=== PATIENT | female | born 1945 | race Hispanic/Latino ===

== ENCOUNTER 2018-06-15 12:06 | Emergency (ER) | payer OTHER ==
--- NOTE | 2018-06-15 12:50 | RAD REPORT ---
EXAM DESCRIPTION: CT - CTHCSPWOC - 06/15/2018 12:37 pm CLINICAL HISTORY: Trauma, head and neck injury. fall, head in jury;Pain COMPARISON: No comparisons TECHNIQUE: Axial 5 mm thick images of the head were obtained. Axial 2 mm thick images of the cervical spine were obtained with sagittal and coronal reconstruction images generated and reviewed. All CT scans are performed using dose optimization technique as appropriate and may include automated exposure control or mA/KV adjustment according to patient size. FINDINGS: CT HEAD WITHOUT CONTRAST: No acute hemorrhage, hydrocephalus or extra-axial collection is identified.No areas of brain edema or midline shift. The paranasal sinuses and mastoids are clear.The calvarium is intact. CT CERVICAL SPINE WITHOUT CONTRAST: No fracture or subluxation.No prevertebral soft tissues swelling is identified. IMPRESSION: No acute intracranial or cervical spine findings.
--- NOTE | 2018-06-15 13:22 | RAD REPORT ---
EXAM DESCRIPTION: RAD - Knee Right 3 View - 06/15/2018 1:15 pm CLINICAL HISTORY: PAIN Fall COMPARISON: No comparisons FINDINGS: No fracture or dislocation is seen. No joint effusion identified. Vascular calcifications seen.
--- NOTE | 2018-06-15 13:24 | RAD REPORT ---
EXAM DESCRIPTION: RAD - Humerus Left - 06/15/2018 1:15 pm CLINICAL HISTORY: PAIN Fall COMPARISON: No comparisons FINDINGS: Mild arthritic changes are present involving the left shoulder. No fracture or dislocation seen.
--- NOTE | 2018-06-15 13:56 | ER ---
Nurse's Notes [facility] Name: Neris Nevarez Age: 72 yrs Sex: Female : 1945 Arrival Date: 06/15/2018 Time: 12:08 Bed 3 Private MD: Out, of [facility] Diagnosis: Fall (on) (from) unspecified stairs and steps;Superficial injury of head;Pain in right knee;Pain in left arm;Contusion of left upper arm Presentation: 06/15 11:22 Mechanism of Injury: Fall down steps approximately 4 feet. Trauma event details: Injury hb occurred in the [facility], Injury occurred: at home. Injury occurred: June 15, 2018. 12:10 Presenting complaint: Patient states: pt fell from approx 4 ft, hitting her head and sg left arm, pt now complains of headache and left shoulder and left upper arm pain, reports a burning sensation and sharp pains, reports no LOC, denies N/V/D/Fever. Transition of care: patient was not received from another setting of care. Onset of symptoms was June 15, 2018. Risk Assessment: Do you want to hurt yourself or someone else? Patient reports no desire to harm self or others. Initial Sepsis Screen: Does the patient meet any 2 criteria? No. Patient's initial sepsis screen is negative. Does the patient have a suspected source of infection? No. Patient's initial sepsis screen is negative. Care prior to arrival: None. 12:10 Method Of Arrival: Ambulatory 12:10 Acuity: YOLIE 3 sg Trauma Activation: Alert Physician: ED Physician; Name: Dr. Marin; Notified At: 11:22; Arrived At: 11:25 Physician: General Surgeon; Name: ; Notified At: 11:22; Arrived At: Physician: Radiology; Name: ; Notified At: 11:22; Arrived At: Physician: Respiratory; Name: ; Notified At: 11:22; Arrived At: Physician: Lab; Name: ; Notified At: 11:22; Arrived At: Historical: - Allergies: 12:08 No Known Allergies; sg - Home Meds: 12:17 clopidogrel 75 mg oral tab 1 tab once daily [Active]; levothyroxine oral [Active]; sg Aspirin Oral [Active]; atorvastatin oral oral [Active]; glimepiride Oral [Active]; valsartan oral oral [Active]; carvedilol oral oral [Active]; - PMHx: 12:17 Hypothyroidism; Diabetes - NIDDM; sg - PSHx: 12:17 Mastectomy, Right; Cholecystectomy; ; sg - Immunization history:: Adult Immunizations up to date. - Social history:: Smoking status: Patient/guardian denies using tobacco. - Immunization history: Last tetanus immunization: - up to date. - Ebola Screening: : Patient negative for fever greater than or equal to 101.5 degrees Fahrenheit, and additional compatible Ebola Virus Disease symptoms Patient denies exposure to infectious person Patient denies travel to an Ebola-affected area in the 21 days before illness onset No symptoms or risks identified at this time. Screenin:35 Abuse screen: Denies threats or abuse. Denies injuries from another. Tuberculosis hb screening: No symptoms or risk factors identified. 12:37 Nutritional screening: No deficits noted. Fall Risk None identified. hb Primary Survey: 12:25 A: Airway: patent, No supplemental oxygen in use on arrival. Breathing/Chest: hb Respiratory pattern: regular, Respiratory effort: spontaneous, unlabored, Chest inspection: symmetrical rise and fall of the chest. Circulation: Pulses: palpable . Skin color: pink, Skin temperature: warm, dry. Disability Alert. 13:15 Reassessment Airway Airway Patent Breathing/Chest Respiratory pattern Regular hb Respiratory effort Spontaneous Unlabored Chest inspection Symmetrical Circulation Color [place] Powder Temperature Warm Dry Disability Alert. Secondary Survey: 12:25 HEENT: No deficits noted. Gastrointestinal: No deficits noted. : No deficits noted. hb Musculoskeletal: Range of motion: limited in left shoulder bruising noted to LUE. Assessment: 12:35 General: Appears in no apparent distress. uncomfortable, Behavior is calm, cooperative. hb Pain: Pain currently is 10 out of 10 on a pain scale. Neuro: Level of Consciousness is awake, alert, obeys commands, Oriented to person, place, time, situation. EENT: No signs and/or symptoms were reported regarding the EENT system. Cardiovascular: Heart tones S1 S2 present Capillary refill < 3 seconds Patient's skin is warm and dry. Respiratory: Airway is patent Trachea midline Respiratory effort is even, unlabored, Respiratory pattern is regular, symmetrical, Breath sounds are clear bilaterally. GI: No deficits noted. No signs and/or symptoms were reported involving the gastrointestinal system. : No deficits noted. No signs and/or symptoms were reported regarding the genitourinary system. Derm: Skin is intact, is healthy with good turgor, Bruising that is dark purple, to LUE. Musculoskeletal: Reports pain in left shoulder. 12:40 General:. hb Vital Signs: 12:17 Pulse 66; Resp 17; Pulse Ox 96% on R/A; sg 12:25 BP 126 / 80; Pulse 65; Resp 16; Pulse Ox 100% on R/A; Pain 10/10; hb 13:15 BP 128 / 78; Pulse 64; Resp 15; Pulse Ox 100% ; hb Bunny Coma Score: 12:25 Eye Response: spontaneous(4). Verbal Response: oriented(5). Motor Response: obeys hb commands(6). Total: 15. 12:30 Eye Response: spontaneous(4). Verbal Response: oriented(5). Motor Response: obeys kdr commands(6). Total: 15. Trauma Score (Adult): 12:25 Eye Response: spontaneous(1); Verbal Response: oriented(1); Motor Response: obeys hb commands(2); Systolic BP: > 89 mm Hg(4); Respiratory Rate: 10 to 29 per min(4); Bunny Score: 15; Trauma Score: 12 13:15 Eye Response: spontaneous(1); Verbal Response: oriented(1); Motor Response: obeys hb commands(2); Systolic BP: > 89 mm Hg(4); Respiratory Rate: 10 to 29 per min(4); Bunny Score: 15; Trauma Score: 12 ED Course: 12:08 Patient arrived in ED. sb2 12:09 Out, [facility] is Private Physician. sb2 12:13 Triage completed. sg 12:13 Arm band placed on. sg 12:18 Selwyn Jang PA is PHCP. jr8 12:18 Loi Marin MD is Attending Physician. jr8 12:25 Patient has correct armband on for positive identification. Placed in gown. Bed in low hb position. Call light in reach. Side rails up X 1. 12:27 Patient maintains SpO2 saturation greater than 95% on room air. Thermoregulation: warm hb blanket given to patient. 12:29 Kandace Good, RN is Primary Nurse. hb 12:38 CT Head C Spine In Process Unspecified. EDMS 12:45 Patient moved to radiology via wheelchair. jb2 13:05 Patient moved back from radiology. jb2 13:05 X-ray completed. Patient tolerated procedure well. jb2 13:16 Humerus Left XRAY In Process Unspecified. EDMS 13:16 Knee Right 3 View XRAY In Process Unspecified. EDMS 14:08 No provider procedures requiring assistance completed. Patient did not have IV access hb during this emergency room visit. Administered Medications: 14:05 Drug: Tylenol #3 (300 mg-30 mg) 1 tablet Route: PO; hb 14:07 Follow up: Response: Medication administered at discharge. hb Intake: 13:15 PO: 0ml; Total: 0ml. hb Output: 13:15 Urine: 0ml; Total: 0ml. hb Outcome: 13:55 Discharge ordered by MD. kdr 14:08 Discharged to home ambulatory, with family. hb 14:08 Condition: stable 14:08 Discharge instructions given to patient, family, Instructed on discharge instructions, follow up and referral plans. medication usage, Demonstrated understanding of instructions, follow-up care, medications, Prescriptions given X 1. 14:08 Patient's length of stay in the Emergency Department was greater than 2 hours. hb 14:09 Patient left the ED. hb Signatures: Dispatcher [employer] EDMS Ernie Sal RN RN Loi Marin MD MD kdr Buechter, Jesse jb2 Selwyn Jang PA PA jr8 Kandace Good, Carlie Kenney RN 2
--- NOTE | 2018-06-15 13:56 | EDPHYS ---
Physician Documentation [facility] Name: Neris Nevarez Age: 72 yrs Sex: Female : 1945 Arrival Date: 06/15/2018 Time: 12:08 Bed 3 Private MD: Out, [facility] ED Physician Loi Marin HPI: 06/15 12:30 This 72 yrs old Female presents to ER via Ambulatory with complaints of Fall kdr 4ft, Head Injury-Adult, Arm Injury. 12:30 The patient or guardian reports injury, pain, tenderness. The complaints affect the kdr left frontal area and right frontal area. Context of injury: The problem was sustained at home, resulted from a fall, Waled up stairs to landing where she apparently fell through the railing landing head first on the ground. Onset: The symptoms/episode began/occurred just prior to arrival, .5 hour(s) ago. Associated signs and symptoms: Loss of consciousness: This patient did not experience any loss of consciousness. Pertinent positives: Left humerus and right knee. Severity of symptoms: At their worst the symptoms were mild, moderate, just prior to arrival, in the emergency department the symptoms are unchanged. The patient has not experienced similar symptoms in the past. The patient has not recently seen a physician. Historical: - Allergies: 12:08 No Known Allergies; sg - Home Meds: 12:17 clopidogrel 75 mg oral tab 1 tab once daily [Active]; levothyroxine oral [Active]; sg Aspirin Oral [Active]; atorvastatin oral oral [Active]; glimepiride Oral [Active]; valsartan oral oral [Active]; carvedilol oral oral [Active]; - PMHx: 12:17 Hypothyroidism; Diabetes - NIDDM; sg - PSHx: 12:17 Mastectomy, Right; Cholecystectomy; ; sg - Immunization history:: Adult Immunizations up to date. - Social history:: Smoking status: Patient/guardian denies using tobacco. - Immunization history: Last tetanus immunization: - up to date. - Ebola Screening: : Patient negative for fever greater than or equal to 101.5 degrees Fahrenheit, and additional compatible Ebola Virus Disease symptoms Patient denies exposure to infectious person Patient denies travel to an Ebola-affected area in the 21 days before illness onset No symptoms or risks identified at this time. ROS: 12:30 Constitutional: Negative for fever, chills, and weight loss, Eyes: Negative for injury, kdr pain, redness, and discharge, Neck: Negative for injury, pain, and swelling, Cardiovascular: Negative for chest pain, palpitations, and edema, Respiratory: Negative for shortness of breath, cough, wheezing, and pleuritic chest pain, Abdomen/GI: Negative for abdominal pain, nausea, vomiting, diarrhea, and constipation, Back: Negative for injury and pain, : Negative for injury, bleeding, discharge, and swelling, MS/Extremity: Negative for injury and deformity except for right knee and left humerus Skin: Negative for injury, rash, and discoloration, Neuro: Negative for headache, weakness, numbness, tingling, and seizure activity. Psych: Negative for depression, anxiety, suicide ideation, homicidal ideation, and hallucinations, Allergy/Immunology: Negative for hives, rash, and allergies, Endocrine: Negative for neck swelling, polydipsia, polyuria, polyphagia, and marked weight changes, Hematologic/Lymphatic: Negative for swollen nodes, abnormal bleeding, and unusual bruising. Exam: 12:30 Constitutional: This is a well developed, well nourished patient who is awake, alert, kdr and in no acute distress. Eyes: Pupils equal round and reactive to light, extra-ocular motions intact. Lids and lashes normal. Conjunctiva and sclera are non-icteric and not injected. Cornea within normal limits. Periorbital areas with no swelling, redness, or edema. 12:30 MS/ Extremity: Pulses equal, no cyanosis. Neurovascular intact. Full, normal range of motion except for slight pain in the right patella and ecchymosis and swelling to the anterior left humerous - mid shaft 12:30 Head/face: Noted is contusion, of the left frontal area and right frontal area. Vital Signs: 12:17 Pulse 66; Resp 17; Pulse Ox 96% on R/A; sg 12:25 BP 126 / 80; Pulse 65; Resp 16; Pulse Ox 100% on R/A; Pain 10/10; hb 13:15 BP 128 / 78; Pulse 64; Resp 15; Pulse Ox 100% ; hb Bunny Coma Score: 12:25 Eye Response: spontaneous(4). Verbal Response: oriented(5). Motor Response: obeys hb commands(6). Total: 15. 12:30 Eye Response: spontaneous(4). Verbal Response: oriented(5). Motor Response: obeys kdr commands(6). Total: 15. Trauma Score (Adult): 12:25 Eye Response: spontaneous(1); Verbal Response: oriented(1); Motor Response: obeys hb commands(2); Systolic BP: > 89 mm Hg(4); Respiratory Rate: 10 to 29 per min(4); Bunny Score: 15; Trauma Score: 12 13:15 Eye Response: spontaneous(1); Verbal Response: oriented(1); Motor Response: obeys hb commands(2); Systolic BP: > 89 mm Hg(4); Respiratory Rate: 10 to 29 per min(4); Bunny Score: 15; Trauma Score: 12 MDM: 12:18 Patient medically screened. [facility] 12:30 Data reviewed: vital signs, nurses notes, lab test result(s), radiologic studies. kdr Counseling: I had a detailed discussion with the patient and/or guardian regarding: the historical points, exam findings, and any diagnostic results supporting the discharge/admit diagnosis, lab results, radiology results. 06/15 12:30 Order name: CT Head C Spine; Complete Time: 13:53 kdr 06/15 12:30 Order name: Humerus Left XRAY; Complete Time: 13:53 kdr 06/15 12:30 Order name: Knee Right 3 View XRAY; Complete Time: 13:53 kdr 06/15 13:54 Order name: Ice pack: To left humerous; Complete Time: 14:01 kdr Administered Medications: 14:05 Drug: Tylenol #3 (300 mg-30 mg) 1 tablet Route: PO; hb 14:07 Follow up: Response: Medication administered at discharge. hb Disposition: 06/15/18 13:55 Discharged to Home. Impression: Fall (on) (from) unspecified stairs and steps, Superficial injury of head, Pain in right knee, Pain in left arm, Contusion of left upper arm. - Condition is Stable. - Discharge Instructions: Joint Pain, Knee Pain, Head Injury, Adult, [id number], Knee Pain, [id number]. - Prescriptions for Tramadol 50 mg Oral Tablet - take 1 tablet by ORAL route every 8 hours as needed; 12 tablet. - Medication Reconciliation Form, Thank You Letter form. - Follow up: Private Physician; When: 2 - 3 days; Reason: If symptoms return, Further diagnostic work-up, Recheck today's complaints, Continuance of care, Re-evaluation by your physician. - Problem is new. - Symptoms have improved. Signatures: Dispatcher [employer] EDMS Ernie Sal, JOHN RN Loi Marin MD MD [facility] Selwyn Jang PA PA jr8 Kandace Good RN RN Corrections: (The following items were deleted from the chart) 14:09 13:55 06/15/2018 13:55 Discharged to Home. Impression: Fall (on) (from) unspecified hb stairs and steps; Superficial injury of head; Pain in right knee; Pain in left arm; Contusion of left upper arm. Condition is Stable. Forms are Medication Reconciliation Form, Thank You Letter, Antibiotic Education, Prescription Opioid Use. Follow up: Private Physician; When: 2 - 3 days; Reason: If symptoms return, Further diagnostic work-up, Recheck today's complaints, Continuance of care, Re-evaluation by your physician. Problem is new. Symptoms have improved. kdr
[2018-06-15] MEDS ORDERED: CODEINE 30MG/APAP 300MG TAB ONE (14:10)
== END 2018-06-15 14:09 | disposition home or self-care (01) ==
LOC: ER 12:06
DX: S40.022A Contusion of left upper arm, initial encounter (principal); M25.561 Pain in right knee; M79.622 Pain in left upper arm; W17.89XA Other fall from one level to another, initial encounter; Y93.89 Activity, other specified; Y92.9 Unspecified place or not applicable; Z90.11 Acquired absence of right breast and nipple; E03.9 Hypothyroidism, unspecified; E11.9 Type 2 diabetes mellitus without complications
CPT/HCPCS: 70450; 72125; 99284

== ENCOUNTER 2019-02-24 18:30 | Observation (INO) | payer OTHER ==
[2019-02-24 19:33] LABS: Absolute Lymphocytes (CBC) 0.3 K/uL (0.7-4.9); Absolute Monocytes 0.2 K/uL (0.1-1.3); Absolute Neutrophil 10.8 K/uL (1.8-8.0); Basophils % 0.3 % (0-1.3); Eosinophils % 0.6 % (0-4.4); Hematocrit 43.9 % (36.0-45.0); Lymphocytes % 2.8 % (15.3-44.8); MPV 9.8 fL (7.6-11.3); RBC Red Blood Cell Count 4.71 M/uL (3.86-4.86)
[2019-02-24 19:39] LABS: Protime INR 1.03
[2019-02-24] MEDS ORDERED: FAMOTIDINE 20 MG/2 ML VIAL IV ONE (19:52)
[2019-02-24] MEDS ORDERED: ONDANSETRON 4 MG/2 ML VIAL ONE (19:52)
[2019-02-24 19:56] LABS: ALT/SGPT 32 U/L (12-78); AST/SGOT 40 U/L (15-37); Albumin 3.9 g/dL (3.4-5.0); Alkaline Phosphatase 80 U/L (45-117); BUN Blood Urea Nitrogen 23 mg/dL (7-18); Bicarbonate 22 mmol/L (21-32); Bilirubin Direct 0.2 mg/dL (0-0.2); Bilirubin Total 1.4 mg/dL (0.2-1.0); Glucose Level 325 mg/dL (74-106); Lipase 404 U/L (73-393); Magnesium 1.9 mg/dL (1.8-2.4); NT PRO-BNP 167 pg/mL (<125); Potassium 4.9 mmol/L (3.5-5.1); Protein, Total 8.1 g/dL (6.4-8.2); Sodium Level 136 mmol/L (136-145); Troponin (Emerg Dept Use Only) < 0.02 ng/mL (0.0-0.045)
[2019-02-24 19:58] LABS: Platelet Estimate ADEQ; Urine White Blood Cell Casts OK
[2019-02-24 19:59] LABS: Blood Morphology Comment NOT SEEN (NOT SEEN)
--- NOTE | 2019-02-24 20:07 | RAD REPORT ---
EXAM DESCRIPTION: Britta Single View02/24/2019 7:57 pm CLINICAL HISTORY: Chest pain COMPARISON: none FINDINGS: The lungs appear clear of acute infiltrate. The heart is normal size IMPRESSION: No acute abnormalities displayed
--- NOTE | 2019-02-24 20:12 | RAD REPORT ---
EXAM DESCRIPTION: CT - Head Brain Wo Cont - 02/24/2019 7:33 pm CLINICAL HISTORY: Headache COMPARISON: None. TECHNIQUE: Computed axial tomography of the head was obtained. IV contrast was not requested. All CT scans are performed using dose optimization technique as appropriate and may include automated exposure control or mA/KV adjustment according to patient size. FINDINGS: An intracranial bleed is not seen . The ventricles are normal in caliber. No extra-axial fluid collection is noted. Fluid within the sinuses/ mastoids is not seen. IMPRESSION: No acute intracranial abnormality is seen. If patient's symptoms persist MRI of the bra in would be recommended.
[2019-02-24] MEDS ORDERED: NA CHLORIDE 0.9% 500 ML ONE (20:44)
[2019-02-24] MEDS ORDERED: INSULIN -REGULAR HUMAN 50 UNIT/0.5 ML ML ONE ×2 (20:44→20:45)
[2019-02-24] MEDS ORDERED: ASPIRIN 81 MG CHEWABLE TABLET ONE (21:00)
--- NOTE | 2019-02-24 21:05 | RAD REPORT ---
EXAM DESCRIPTION: CT - Abdomen Pelvis W Contrast - 02/24/2019 8:47 pm CLINICAL HISTORY: Abdominal pain. Vomiting COMPARISON: None. TECHNIQUE: Computed axial tomography of the abdomen and pelvis was obtained. 100 cc Isovue-300 is ad ministered intravenously. Oral contrast was given. All CT scans are performed using dose optimization technique as appropriate and may include automated exposure control or mA/KV adjustment according to patient size. FINDINGS: Fatty liver. Cholecystectomy The Spleen, pancreas, adrenals and kidneys appear unremarkable. The appendix is normal caliber. Diverticula stem from the colon without evidence of diverticulitis Fluid within nondilated small bowel IMPRESSION: Fluid within nondilated small bowel may indicate an enteritis
--- NOTE | 2019-02-24 21:40 | ER ---
Nurse's Notes [facility] Name: Neris Nevarez Age: 73 yrs Sex: Female : 1945 Arrival Date: 02/24/2019 Time: 18:33 Bed 8 Private MD: Diagnosis: Chest pain, unspecified;Epigastric pain Presentation: 02/24 18:52 Presenting complaint: Patient states: high blood pressure reading at 5 pm, vomiting at iw 1300, also c/o chest pain earlier today but has resolved, also has dizziness. Transition of care: patient was not received from another setting of care. Onset of symptoms was February 24, 2019. Risk Assessment: Do you want to hurt yourself or someone else? Patient reports no desire to harm self or others. Initial Sepsis Screen: Does the patient meet any 2 criteria? No. Patient's initial sepsis screen is negative. Does the patient have a suspected source of infection? No. Patient's initial sepsis screen is negative. Care prior to arrival: None. 18:52 Method Of Arrival: Ambulatory iw 18:52 Acuity: YOLIE 3 iw Triage Assessment: 19:28 GI: Reports lower abdominal pain, upper abdominal pain, nausea, vomiting. ak1 Historical: - Allergies: 18:54 No Known Allergies; iw - Home Meds: 18:54 aspirin 81 mg oral TbEC once daily [Active]; glimepiride 1 mg oral tab twice a day iw [Active]; atorvastatin 20 mg oral tab once daily [Active]; levothyroxine 25 mcg oral tab once daily [Active]; carvedilol 12.5 mg oral tab 2 times per day [Active]; clopidogrel 75 mg Oral tab 1 tab once daily [Active]; - PMHx: 18:54 Diabetes - NIDDM; Hypothyroidism; Cancer, Breast; iw - PSHx: 18:54 Mastectomy, Right; Cholecystectomy; ; iw - Immunization history:: Adult Immunizations not up to date. - Social history:: Smoking status: Patient/guardian denies using tobacco. - Ebola Screening: : Patient negative for fever greater than or equal to 101.5 degrees Fahrenheit, and additional compatible Ebola Virus Disease symptoms Patient denies exposure to infectious person Patient denies travel to an Ebola-affected area in the 21 days before illness onset No symptoms or risks identified at this time. Screenin:26 Abuse screen: Denies threats or abuse. Denies injuries from another. Nutritional ak1 screening: No deficits noted. Tuberculosis screening: No symptoms or risk factors identified. Fall Risk None identified. Assessment: 19:26 General: Appears in no apparent distress. Behavior is cooperative, anxious, fussy. ak1 Pain: Complains of pain in back. Neuro: Level of Consciousness is awake, alert, obeys commands, Oriented to person, place, time, situation, Technical Product Manager are equal bilaterally Moves all extremities. Gait is steady, Speech is normal, Facial symmetry appears normal. Cardiovascular: No deficits noted. Respiratory: No deficits noted. GI: Abdomen is round. : No signs and/or symptoms were reported regarding the genitourinary system. EENT: No signs and/or symptoms were reported regarding the EENT system. Derm: No signs and/or symptoms reported regarding the dermatologic system. Musculoskeletal: No signs and/or symptoms reported regarding the musculoskeletal system. 20:56 Reassessment: Patient appears in no apparent distress at this time. No changes from ak1 previously documented assessment. Patient and/or family updated on plan of care and expected duration. Pain level reassessed. pt returned from CT Patient states feeling better. Patient states symptoms have improved. 21:45 Reassessment: no BP or sticks on right arm. pt and family updated on reason for stay. ak1 pt tolerating water. Vital Signs: 18:54 BP 142 / 67; Pulse 81; Resp 16; Temp 98.5(O); Pulse Ox 97% on R/A; Weight 62.6 kg; iw Height 4 ft. 10 in. (147.32 cm); Pain 8/10; 19:35 BP 177 / 59; Pulse 81; Resp 18; Pulse Ox 98% on R/A; ak1 20:35 BP 180 / 78; Pulse 79; Resp 18; Pulse Ox 97% on R/A; ak1 21:21 BP 194 / 77; Pulse 88; Resp 16; Temp 98.6; Pulse Ox 97% on R/A; Pain 0/10; ak1 21:46 BP 178 / 80; Pulse 83; Resp 16; Temp 98.6; Pulse Ox 97% on R/A; Pain 0/10; ak1 22:40 BP 174 / 75; Pulse 76; Resp 16; Temp 98.7; Pulse Ox 97% on R/A; Pain 0/10; ak1 18:54 Body Mass Index 28.84 (62.60 kg, 147.32 cm) iw ED Course: 18:33 Patient arrived in ED. rg4 18:53 Triage completed. iw 18:54 Arm band placed on. iw 18:59 Henrique Iraheta PA is PHCP. cp 18:59 Angela Matthews MD is Attending Physician. cp 19:06 Yvette Henderson, RN is Primary Nurse. ak1 19:13 Attending Physician role handed off by Angela Matthews MD cp 19:13 Henrique Nieves MD is Attending Physician. cp 19:[address] vm2 19:25 Initial lab(s) drawn, by me, sent to lab. EKG done, by ED staff, reviewed by Henrique Iraheta ak1 PA. Inserted saline lock: 20 gauge in left antecubital area, using aseptic technique. Blood collected. 19:26 Patient has correct armband on for positive identification. Placed in gown. Bed in low ak1 position. Call light in reach. Side rails up X2. Adult w/ patient. amphibian crewmember on. Pulse ox on. NIBP on. 19:33 CT completed. Patient tolerated procedure well. Patient moved back from CT. nj 19:35 CT Head Brain wo Cont In Process Unspecified. EDMS 19:57 Chest Single View In Process Unspecified. EDMS 20:47 CT Abd/Pelvis - W/Contrast: no oral contrast In Process Unspecified. EDMS 21:38 Angela Garcia MD is Hospitalizing Provider. cp 21:46 No provider procedures requiring assistance completed. Patient admitted, IV remains in ak1 place. Administered Medications: 19:45 Drug: Pepcid 20 mg Route: IVP; Site: left antecubital; ak1 20:29 Follow up: Response: No adverse reaction ak1 19:46 Drug: Zofran 4 mg Route: IVP; Site: left antecubital; ak1 20:29 Follow up: Response: No adverse reaction ak1 20:44 Drug: NS 0.9% 500 ml Route: IV; Rate: 250 ml/hr; Site: left antecubital; ak1 21:47 Follow up: IV Status: Completed infusion; IV Intake: 500ml ak1 20:45 Drug: Insulin Regular Human 10 units {Co-Signature: ao (Jair Manzo RN).} Route: IVP; ak1 Site: left antecubital; 20:55 Follow up: Response: No adverse reaction ak1 20:53 Drug: Aspirin Chewable Tablet 162 mg Route: PO; ak1 20:55 Follow up: Response: No adverse reaction ak1 Point of Care Testing: Blood Glucose: 21:48 Blood Glucose: 244 mg/dL; oe Ranges: Intake: 21:47 IV: 500ml; Total: 500ml. ak1 Outcome: 21:39 Decision to Hospitalize by Provider. cp 21:46 Condition: good ak1 21:46 Instructed on the need for admit. 22:37 Admitted to Med/surg accompanied by tech, family with patient, via wheelchair, room ak1 206, with chart, Report called to Jodi LOPEZ 23:08 Patient left the ED. ak1 Signatures: Dispatcher [employer] Yolanda Vegas RN RN iw Krenek, Amber RN JOHN tn1 Henrique Iraheta PA PA cp Garcia, Rubi rg4 Rafa Kumar Orlando Jeannette Ford 2 Jair romero Corrections: (The following items were deleted from the chart) 19:52 19:39 In radiology for Chest Single View+RAD.RAD.BRZ. EDMS EDMS
--- NOTE | 2019-02-24 21:40 | EDPHYS ---
Physician Documentation [facility] Name: Neris Nevarez Age: 73 yrs Sex: Female : 1945 Arrival Date: 02/24/2019 Time: 18:33 Bed 8 Private MD: ED Physician Henrique Nieves HPI: 02/24 19:20 This 73 yrs old Female presents to ER via Ambulatory with complaints of High cp Blood Pressure, Vomiting, Chest Pain. 19:20 The patient presents to the emergency department with nausea, that is mild, vomiting, 2 cp times today, abdominal pain, of the epigastric area. 19:20 Onset: The symptoms/episode began/occurred today. Associated signs and symptoms: cp Pertinent positives: episode of chest pain this afternoon that is now resolved, general weakness, Pertinent negatives: diarrhea, fever, GI bleeding. Historical: - Allergies: 18:54 No Known Allergies; iw - Home Meds: 18:54 aspirin 81 mg oral TbEC once daily [Active]; glimepiride 1 mg oral tab twice a day iw [Active]; atorvastatin 20 mg oral tab once daily [Active]; levothyroxine 25 mcg oral tab once daily [Active]; carvedilol 12.5 mg oral tab 2 times per day [Active]; clopidogrel 75 mg Oral tab 1 tab once daily [Active]; - PMHx: 18:54 Diabetes - NIDDM; Hypothyroidism; Cancer, Breast; iw - PSHx: 18:54 Mastectomy, Right; Cholecystectomy; ; iw - Immunization history:: Adult Immunizations not up to date. - Social history:: Smoking status: Patient/guardian denies using tobacco. - Ebola Screening: : Patient negative for fever greater than or equal to 101.5 degrees Fahrenheit, and additional compatible Ebola Virus Disease symptoms Patient denies exposure to infectious person Patient denies travel to an Ebola-affected area in the 21 days before illness onset No symptoms or risks identified at this time. ROS: 19:25 Constitutional: Negative for body aches, chills, fever. cp 19:25 Eyes: Negative for injury, pain, redness, and discharge. cp Exam: 19:33 Constitutional: The patient appears in no acute distress, alert, awake, cp non-diaphoretic, non-toxic, well developed, well nourished. 19:33 Head/Face: Normocephalic, atraumatic. cp 19:33 Eyes: Periorbital structures: appear normal, Pupils: equal, round, and reactive to light and accomodation, Extraocular movements: intact throughout, Conjunctiva: normal, no exudate, no injection, Sclera: no appreciated abnormality, Lids and lashes: appear normal, bilaterally. 19:33 ENT: External ear(s): are unremarkable, Ear canal(s): are normal, clear, TM's: dullness, bilaterally, Nose: is normal, Mouth: Lips: moist, Oral mucosa: pink and intact, moist, Posterior pharynx: Airway: no evidence of obstruction, patent, Tonsils: are normal in appearance, Uvula: midline, swelling, is not appreciated, erythema, is not appreciated, exudate, is not appreciated, Voice: is normal. 19:33 Neck: ROM/movement: is normal, is supple, without pain, no range of motions limitations, no meningismus. 19:33 Chest/axilla: Inspection: normal, Palpation: is normal, no crepitus, no tenderness. 19:33 Cardiovascular: Rate: normal, Rhythm: regular, Edema: is not appreciated, JVD: is not appreciated. 19:33 Respiratory: the patient does not display signs of respiratory distress, Respirations: normal, no use of accessory muscles, no retractions, no splinting, no tachypnea, labored breathing, is not present, Breath sounds: are clear throughout, no decreased breath sounds, no stridor, no wheezing. 19:33 Abdomen/GI: Inspection: abdomen appears normal, Bowel sounds: active, all quadrants, Palpation: soft, in all quadrants, mild abdominal tenderness, in the epigastric area, rebound tenderness, is not appreciated, voluntary guarding, is not appreciated, involuntary guarding, is not appreciated. 19:33 Back: pain, is absent, ROM is normal. 19:33 Musculoskeletal/extremity: Exam is negative for decreased range of motion, deformity, injury. 19:33 Skin: cellulitis, is not appreciated, no rash present. 19:33 Neuro: Orientation: to person, place \T\ time. Mentation: is normal, Cerebellar function: Romberg testing is negative, normal finger to nose testing, Motor: moves all fours, general weakness w/o focal deficits, Sensation: is normal. Vital Signs: 18:54 BP 142 / 67; Pulse 81; Resp 16; Temp 98.5(O); Pulse Ox 97% on R/A; Weight 62.6 kg; iw Height 4 ft. 10 in. (147.32 cm); Pain 8/10; 19:35 BP 177 / 59; Pulse 81; Resp 18; Pulse Ox 98% on R/A; ak1 20:35 BP 180 / 78; Pulse 79; Resp 18; Pulse Ox 97% on R/A; ak1 21:21 BP 194 / 77; Pulse 88; Resp 16; Temp 98.6; Pulse Ox 97% on R/A; Pain 0/10; ak1 21:46 BP 178 / 80; Pulse 83; Resp 16; Temp 98.6; Pulse Ox 97% on R/A; Pain 0/10; ak1 22:40 BP 174 / 75; Pulse 76; Resp 16; Temp 98.7; Pulse Ox 97% on R/A; Pain 0/10; ak1 18:54 Body Mass Index 28.84 (62.60 kg, 147.32 cm) iw MDM: 19:07 Patient medically screened. 21:15 Data reviewed: vital signs, nurses notes, lab test result(s), EKG, radiologic studies, cp CT scan, plain films. 21:15 Test interpretation: by ED physician or midlevel provider: ECG, plain radiologic cp studies. Response to treatment: the patient's symptoms have mildly improved after treatment. 21:35 Physician consultation: Angela Garcia MD was called at 21:30, was contacted at 21:30, regarding admission, to the telemetry unit. patient's condition. 02/24 19:14 Order name: Basic Metabolic Panel; Complete Time: 20:22 cp 02/24 20:22 Interpretation: Normal except: GLUC 325; BUN 23; GFR 56. cp 02/24 19:14 Order name: CBC with Diff; Complete Time: 20:22 cp 02/24 20:22 Interpretation: Normal except: WBC 11.5; HGB 15.3; JESSE% 94.3; LYM% 2.8; MN% 2.0; NEUT A cp 10.8; LYMA 0.3. 02/24 19:14 Order name: LFT's; Complete Time: 20:22 cp 02/24 21:09 Interpretation: Normal except: AST 40; BILIT 1.4; GLOB 4.2; A/G 0.9. cp 02/24 19:14 Order name: Magnesium; Complete Time: 20:22 cp 02/24 19:14 Order name: NT PRO-BNP; Complete Time: 20:22 cp 02/24 19:14 Order name: PT-INR; Complete Time: 20:22 cp 02/24 19:14 Order name: Troponin (emerg Dept Use Only); Complete Time: 20:22 cp 02/24 19:14 Order name: Lipase; Complete Time: 20:22 cp 02/24 21:09 Interpretation: Abnormal: LIP 404. cp 02/24 19:36 Order name: CBC Smear Scan; Complete Time: 20:22 EDMS 02/24 19:51 Order name: Ketone, Serum; Complete Time: 20:22 cp 02/24 20:43 Interpretation: Abnormal: ACET SMALL. 02/24 19:52 Order name: LAB Add On 02/24 21:51 Order name: Glucose, Ancillary Testing EDWY 02/24 22:25 Order name: Urinalysis EDWY 02/24 22:25 Order name: CBC with Automated Diff EDMS 02/24 19:14 Order name: CT Head Brain wo Cont; Complete Time: 20:22 02/24 22:25 Order name: CBC with Automated Diff EDMS 02/24 22:25 Order name: Comprehensive Metabolic Panel EDWY 02/24 22:25 Order name: Comprehensive Metabolic Panel EDMS 02/24 22:25 Order name: Lipid Profile EDMS 02/24 22:25 Order name: Lipid Profile EDW[facility] 02/24 22:25 Order name: Magnesium EDMS 02/24 22:25 Order name: Magnesium EDMS 02/24 22:25 Order name: Phosphorus EDMS 02/24 22:25 Order name: Phosphorus EDMS 02/24 22:25 Order name: NT PRO-BNP EDMS 02/24 22:25 Order name: NT PRO-BNP EDMS 02/24 22:25 Order name: Troponin I EDMS 02/24 22:25 Order name: Troponin I EDMS 02/24 22:25 Order name: Troponin I EDMS 02/24 19:14 Order name: EKG; Complete Time: 19:14 cp 02/24 19:14 Order name: Cardiac monitoring; Complete Time: 19:25 cp 02/24 19:14 Order name: EKG - Nurse/Tech; Complete Time: 19:25 cp 02/24 19:14 Order name: IV Saline Lock; Complete Time: 19:25 cp 02/24 19:14 Order name: Labs collected and sent; Complete Time: 19:25 cp 02/24 19:14 Order name: O2 Per Protocol; Complete Time: :25 cp 02/24 19:14 Order name: O2 Sat Monitoring; Complete Time: : cp 02/24 19:54 Order name: Chest Single View; Complete Time: 20:22 EDWY 02/24 20:29 Order name: CT Abd/Pelvis - W/Contrast: no oral contrast; Complete Time: 21:08 cp 02/24 22:25 Order name: CONS Physician Consult EDWY 02/24 22:25 Order name: Heart Healthy EDWY 02/24 22:25 Order name: EKG Electrocardiogram EDWY 02/24 22:25 Order name: EKG Electrocardiogram EDMS Administered Medications: 19:45 Drug: Pepcid 20 mg Route: IVP; Site: left antecubital; ak1 20:29 Follow up: Response: No adverse reaction ak1 19:46 Drug: Zofran 4 mg Route: IVP; Site: left antecubital; ak1 20:29 Follow up: Response: No adverse reaction ak1 20:44 Drug: NS 0.9% 500 ml Route: IV; Rate: 250 ml/hr; Site: left antecubital; ak1 21:47 Follow up: IV Status: Completed infusion; IV Intake: 500ml ak1 20:45 Drug: Insulin Regular Human 10 units {Co-Signature: nick (Jair Manzo RN).} Route: IVP; ak1 Site: left antecubital; 20:55 Follow up: Response: No adverse reaction ak1 20:53 Drug: Aspirin Chewable Tablet 162 mg Route: PO; ak1 20:55 Follow up: Response: No adverse reaction ak1 Point of Care Testing: Blood Glucose: 21:48 Blood Glucose: 244 mg/dL; oe Ranges: Critical Glucose Levels:Adult <50 mg/dl or >400 mg/dl <40 mg/dl or >180 mg/dl Disposition: 02/24/19 21:39 Hospitalization ordered by Angela Garcia for Observation. Preliminary diagnosis are Chest pain, unspecified, Epigastric pain. - Bed requested for Telemetry/MedSurg (observation). - Status is Observation. ak1 - Condition is Stable. - Problem is new. - Symptoms have improved. UTI on Admission? No Addendum: 02/28/2019 10:59 Co-signature as Attending Physician, Henrique Nieves MD I agree with the assessment and c villanueva plan of care. Signatures: Dispatcher [employer] EDWY Henrique Nieves MD MD cha Williams, Irene RN Yvette Mancini RN RN ak1 Henrique Iraheta PA PA Ugo Gonzalez RN RN jd3 Jair romero Corrections: (The following items were deleted from the chart) 02/24 19:29 19:23 Accucheck Blood Glucose ordered. cp ak1 19:52 19:14 Chest Single View+RAD.RAD.BRZ ordered. EDWY EDMS 20:22 20:22 Normal except: WBC 11.5; HGB 15.3; JESSE% 94.3; LYM% 2.8; MN% 2.0; NEUT A 10.8. cp cp 21:40 21:39 Hospitalization Ordered by Angela Garcia MD for Observation. Preliminary jd3 diagnosis is Chest pain, unspecified; Epigastric pain. Bed requested for Telemetry/MedSurg (observation). Status is Observation. Condition is Stable. Problem is new. Symptoms have improved. UTI on Admission? No. cp 23:08 21:40 02/24/2019 21:39 Hospitalization Ordered by Angela Garcia MD for Observation. ak1 Preliminary diagnosis is Chest pain, unspecified; Epigastric pain. Bed requested for Telemetry/MedSurg (observation). Status is Observation. Condition is Stable. Problem is new. Symptoms have improved. UTI on Admission? No. jd3
[2019-02-24] MEDS ORDERED: ONDANSETRON 4 MG/2 ML VIAL IV PRN (22:16)
[2019-02-24] MEDS ORDERED: ALPRAZOLAM 0.25 MG TABLET PO PRN (22:16)
[2019-02-24] MEDS ORDERED: ACETAMINOPHEN 500 MG TAB PO PRN (22:16)
[2019-02-24] MEDS: NA CHLORIDE 0.9% 1,000 ML IV SCH (23:41)
[2019-02-25 00:46] VITALS: BMI 28.8
[2019-02-25] MEDS: ALBUTEROL 2.5 MG/3 ML NEB SOL NEB SCH ×2 (02:00→07:40)
[2019-02-25 05:26] LABS: Urine Appearance CLEAR; Urine Blood NEGATIVE (NEG); Urine Color YELLOW; Urine Glucose 3+ (NEG); Urine Protein NEGATIVE (NEG); Urine Specific Gravity >=1.030 (1.005-1.030)
[2019-02-25 05:28] LABS: Urine Bilirubin NEGATIVE (NEG); Urine Microscopic Reflex ORDER UMIC
[2019-02-25 05:30] LABS: Absolute Lymphocytes (CBC) 0.5 K/uL (0.7-4.9); Absolute Monocytes 0.3 K/uL (0.1-1.3); Absolute Neutrophil 6.2 K/uL (1.8-8.0); Basophils % 0.3 % (0-1.3); Eosinophils % 0.7 % (0-4.4); Hematocrit 39.7 % (36.0-45.0); Lymphocytes % 7.2 % (15.3-44.8); MPV 9.4 fL (7.6-11.3); Monocytes % 3.7 % (3.3-12.3); RBC Red Blood Cell Count 4.23 M/uL (3.86-4.86)
[2019-02-25 05:48] LABS: Albumin 3.3 g/dL (3.4-5.0); Bilirubin Total 1.1 mg/dL (0.2-1.0); Magnesium 1.6 mg/dL (1.8-2.4); Phosphorus 2.9 mg/dL (2.5-4.9); Potassium 3.5 mmol/L (3.5-5.1); Protein, Total 6.9 g/dL (6.4-8.2)
[2019-02-25 06:02] LABS: Urine Bacteria NONE SEEN /HPF (<20); Urine Culture Reflex Order NOT NEEDED; Urine RBC <5 /HPF (NONE SEEN)
[2019-02-25] MEDS ORDERED: POTASSIUM CL SA 10 MEQ TAB PO ONE (06:15)
[2019-02-25] MEDS ORDERED: METOPROLOL TAR 25 MG TAB PO SCH (06:37)
[2019-02-25] MEDS: ENOXAPARIN 40 MG/0.4 ML SQ SCH (08:35)
[2019-02-25] MEDS: PANTOPRAZOLE 40MG TABLET PO SCH (08:35)
[2019-02-25] MEDS ORDERED: MAGNESIUM SULFATE 1 gm IVPB 1 GM/100 ML BAG IV ONE (09:00)
[2019-02-25] MEDS ORDERED: ASPIRIN EC 81 MG TAB PO SCH (09:00)
--- NOTE | 2019-02-25 10:29 | EKG ---
Test Date: 2019-02-24 Test Time: 19:20:52 Cold Press Operator: SYLVAIN MEASUREMENT RESULTS: Intervals: Rate: 76 AR: 116 QRSD: 104 QT: 422 QTc: 474 [place]: P: 41 AR: 116 QRS: 54 T: 57 INTERPRETIVE STATEMENTS: Normal sinus rhythm Incomplete right bundle branch block Borderline ECG No previous ECG available for comparison Electronically Signed On 02-25-19 10:28:15 CDT by Ronal Santiago
--- NOTE | 2019-02-25 11:42 | P.SSS ---
Patient History Date of Service: 02/25/19 Reason for admission: Abdominal pain nausea vomiting History of Present Illness: 73-year-old female with significant past medical history of hypertension and diabetes who presented to the ED complaining of having abdominal pain nausea vomiting and chest pain that resolved prior to arrival to the ED. Patient was admitted to the hospital for chest pain ACS rule out and possible enteritis. Allergies No Known Allergies Allergy (Verified 02/24/19 23:23) Home Medications: Aspirin [Aspir-Low] 1 tab PO DAILY 02/24/19 Atorvastatin Calcium 1 tab PO DAILY 02/24/19 Carvedilol 1 tab PO BID 02/24/19 Clopidogrel Bisulfate [Plavix] 75 mg PO DAILY 02/24/19 Glimepiride 1 tab PO BID 02/24/19 Levothyroxine Sodium 1 tab PO DAILY 02/24/19 Losartan Potassium 1 tab PO DAILY 02/24/19 Pantoprazole [Protonix Tab*] 40 mg PO DAILYAC #30 tab 02/25/19 - Past Medical/Surgical History Has patient received pneumonia vaccine in the past: Yes Diabetic: Yes -: NEUROPATHY -: HTN -: HYPERLIPEDEMIA -: DM TYPE II -: HYPOTHROIDISM -: KIDNEY STONES -: BREAST CANCER -: BLOOD CLOTS-both legs -: LEFT MASTECTOMY -: JASMINA -: X3 - Family History Mother -: Heart disease, Diabetes Father -: Hypertension - Social History Smoking Status: Never smoker Alcohol use: Yes CD- Drugs: No Caffeine use: Yes Place of Residence: Home Review of Systems 10-point ROS is otherwise unremarkable Physical Examination - Vital Signs Temperature: 97.3 F Blood Pressure: 160/67 Pulse: 77 Respirations: 20 Pulse Ox (%): 95 - Physical Exam General: Alert, In no apparent distress HEENT: Atraumatic, PERRLA, Mucous membr. moist/pink, EOMI, Sclerae nonicteric Neck: Supple, 2+ carotid pulse no bruit, No LAD, Without JVD or thyroid abnormality Respiratory: Clear to auscultation bilaterally, Normal air movement Cardiovascular: Regular rate/rhythm, Normal S1 S2 Gastrointestinal: Normal bowel sounds, No tenderness Musculoskeletal: No tenderness Integumentary: No rashes Neurological: Normal gait, Normal speech, Normal strength at 5/5 x4 extr, Normal tone, Normal affect Lymphatics: No axilla or inguinal lymphadenopathy - Studies Laboratory Data (last 24 hrs) 02/24/19 19:20: PT 12.1, INR 1.03 02/24/19 19:20: WBC 11.5 H, Hgb 15.3 H, Hct 43.9, Plt Count 212 02/24/19 19:20: Sodium 136, Potassium 4.9, BUN 23 H, Creatinine 0.97, Glucose 325 H, Magnesium 1.9, Total Bilirubin 1.4 H, AST 40 H, ALT 32, Alkaline Phosphatase 80, Lipase 404 H - Diagnosis (Problem(s)) (1) Enteritis Current Visit: Yes Status: Resolved (2) Chest pain Current Visit: Yes Status: Resolved Qualifiers: Chest pain type: other chest pain Qualified Code(s): R07.89 - Other chest pain; R07.8 - Other chest pain (3) Diabetes mellitus Onset Date: 03/30/17 Current Visit: No Status: Chronic Qualifiers: Diabetes mellitus type: type 2 Diabetes mellitus half-way insulin use: without half-way use Diabetes mellitus complication status: without complication Qualified Code(s): E11.9 - Type 2 diabetes mellitus without complications (4) HTN (hypertension) Onset Date: 03/30/17 Current Visit: No Status: Chronic Qualifiers: Hypertension type: essential hypertension (5) Hyperlipidemia Current Visit: No Status: Chronic Qualifiers: Hyperlipidemia type: mixed hyperlipidemia Qualified Code(s): E78.2 - Mixed hyperlipidemia (6) Hypothyroidism Onset Date: 03/30/17 Current Visit: No Status: Chronic Qualifiers: Hypothyroidism type: acquired Treatment Summary: Overall during the hospital stay patient remained stable The patient was initially admitted to the hospital for abdominal pain nausea vomiting and chest pain. Patient's chest pain resolved prior to arrival here in the hospital. Troponin x2 were negative. EKG was negative for any acute abnormality. Cardiology was consulted who recommended the patient can be discharged home and have outpatient echo and stress test done. For patient's abdominal pain and nausea and vomiting. Abdominal CT was done which was consistent with enteritis. Patient also had abdominal ultrasound done due to elevated T bilirubin initially. Abdominal ultrasound was within normal limits no acute findings were noted. Patient's elevated T bilirubin most likely secondary to dehydration. Patient was hydrated well here in the hospital. Diet was advanced. Patient was able to tolerate her diet and ambulate well while here in the hospital. Abdominal pain nausea vomiting did resolve as well. Patient then was discharged home under stable condition was asked to follow up with primary care provider along with GI doctor. Patient's enteritis was most likely secondary to viral illness. Patient was asked to continue taking all her medication as prescribed and was also given Protonix to be taken at home. - Disposition Disposition: ROUTINE DISCHARGE Condition: GOOD Patient Discharge Instructions: Please f.u with PCP and GI in 1 to 2 days post discharge. You were admitted to the hosptial for viral Enteritis and Chest pain. lab work and imaging were all within Normal limits. No New medication Diet: Regular Activity: Ad giovani
[2019-02-25] MEDS: NA CHLORIDE 0.9% 1,000 ML IV SCH (12:20)
--- NOTE | 2019-02-25 13:17 | P.HP ---
Certification for Inpatient Patient admitted to: Observation With expected LOS: <2 Midnights Patient will require the following post-hospital care: None Practitioner: I am a practitioner with admitting privileges, knowledge of patient current condition, hospital course, and medical plan of care. Services: Services provided to patient in accordance with Admission requirements found in Title 42 Section 412.3 of the Code of Federal Regulations Patient History Date of Service: 02/24/19 Reason for admission: Chest pain rule out acute coronary syndrome History of Present Illness: Patient is a 73-year-old female who came to the hospital with chest discomfort. Pain was mainly in the sternal region. It started shortly after she had to "burp". patient denies any diaphoresis, shortness of breath, or radiation of chest pain. The pain pretty much went away on its own. Patient had a stress test many years ago which was negative. She has not had any more cardiac workup since about 10 years prior. She denies any significant medical issues. On physical exam she did reveal herself to have a carotid bruit on the right side. This needs to be further evaluated. Since it's the weekend we will rule out for acute coronary syndrome and if we are not able to get an echocardiogram over the weekend will at least try to get the carotid Doppler so we can assess her carotid artery and then arrange for outpatient cardiac testing. Most likely GI related. Allergies No Known Allergies Allergy (Verified 02/24/19 23:23) Home Medications: Aspirin [Aspir-Low] 1 tab PO DAILY 02/24/19 Atorvastatin Calcium 1 tab PO DAILY 02/24/19 Carvedilol 1 tab PO BID 02/24/19 Clopidogrel Bisulfate [Plavix] 75 mg PO DAILY 02/24/19 Glimepiride 1 tab PO BID 02/24/19 Levothyroxine Sodium 1 tab PO DAILY 02/24/19 Losartan Potassium 1 tab PO DAILY 02/24/19 Pantoprazole [Protonix Tab*] 40 mg PO DAILYAC #30 tab 02/25/19 - Past Medical/Surgical History Has patient received pneumonia vaccine in the past: Yes Diabetic: Yes -: NEUROPATHY -: HTN -: HYPERLIPEDEMIA -: DM TYPE II -: HYPOTHROIDISM -: KIDNEY STONES -: BREAST CANCER -: BLOOD CLOTS-both legs -: LEFT MASTECTOMY -: JASMINA -: X3 - Family History Mother Medical History: Heart disease, Diabetes Father Medical History: Hypertension - Social History Smoking Status: Never smoker Alcohol use: Yes CD- Drugs: No Caffeine use: Yes Place of Residence: Home Review of Systems 10-point ROS is otherwise unremarkable Physical Examination - Vital Signs Temperature: 98.5 F Blood Pressure: 151/67 Pulse: 80 Respirations: 19 Pulse Ox (%): 97 - Physical Exam General: Alert, In no apparent distress, Oriented x3 HEENT: Atraumatic, PERRLA, Mucous membr. moist/pink, EOMI, Sclerae nonicteric Neck: Supple, No LAD, Without JVD or thyroid abnormality, Bruit (right) Respiratory: Clear to auscultation bilaterally, Normal air movement Cardiovascular: Regular rate/rhythm, Normal S1 S2 Gastrointestinal: Normal bowel sounds, Soft and benign, Non-distended, No tenderness Musculoskeletal: No clubbing, No swelling, No tenderness Integumentary: No rashes Neurological: Normal gait, Normal speech, Normal strength at 5/5 x4 extr, Normal tone, Sensation intact, Cranial nerves 3-12 intact, Normal affect Lymphatics: No axilla or inguinal lymphadenopathy - Studies Laboratory Data (last 24 hrs) 02/24/19 19:20: PT 12.1, INR 1.03 02/24/19 19:20: WBC 11.5 H, Hgb 15.3 H, Hct 43.9, Plt Count 212 02/24/19 19:20: Sodium 136, Potassium 4.9, BUN 23 H, Creatinine 0.97, Glucose 325 H, Magnesium 1.9, Total Bilirubin 1.4 H, AST 40 H, ALT 32, Alkaline Phosphatase 80, Lipase 404 H Assessment & Plan - Problems (Diagnosis) (1) Chest pain Current Visit: Yes Status: Resolved Qualifiers: Chest pain type: other chest pain Qualified Code(s): R07.89 - Other chest pain; R07.8 - Other chest pain (2) Bruit of right carotid artery Current Visit: Yes Status: Acute (3) Diabetes mellitus Onset Date: 03/30/17 Current Visit: No Status: Chronic Qualifiers: Diabetes mellitus type: type 2 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 mellitus 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 gauger supervisor insulin use: without terminal gauger supervisor use Diabetes mellitus complication status: without complication Qualified Code(s): E11.9 - Type 2 diabetes mellitus without complications (4) HTN (hypertension) Onset Date: 03/30/17 Current Visit: No Status: Chronic Qualifiers: Hypertension type: essential hypertension (5) Hyperlipidemia Current Visit: No Status: Chronic Qualifiers: Hyperlipidemia type: mixed hyperlipidemia Qualified Code(s): E78.2 - Mixed hyperlipidemia (6) Hypothyroidism Onset Date: 03/30/17 Current Visit: No Status: Chronic Qualifiers: Hypothyroidism type: acquired - Plan 1. Serial troponins and EKG 2. Cardiology consultation 3. Echocardiogram along with carotid Doppler and arrange for inpatient stress test(pending cardiology evaluation) 4. Anti-platelet therapy, anti coagulation, beta-hayes, statin, and O2 as needed 5. IV morphine for pain 6. Nitro p.r.n. Discharge Plan: Home Plan to discharge in: 24 Hours - Advance Directives Does patient have a Living Will: No Does patient have a Durable POA for Healthcare: No - Code Status/Comfort Care Code Status Assessed: Yes Code Status: Full Code Critical Care: No Time Spent Managing PTS Care (In Minutes): 45
--- NOTE | 2019-02-25 19:23 | RAD REPORT ---
EXAM DESCRIPTION: US - Abdomen Exam Complete - 02/25/2019 7:04 pm CLINICAL HISTORY: Abdominal pain/elevated bilirubin COMPARISON: none FINDINGS: The liver has an increased echotexture. The gallbladder has been removed. The common bile duct measures 11 millimeters. The pancreas is normal in size and echotexture The right kidney measures 9 centimeters with a normal echotexture. The left kidney measures 9 centimeters with a normal echotexture. The spleen measures 10 centimeters. The abdominal aorta and inferior vena cava appear unremarkable IMPRESSION: Increased hepatic echotexture consistent with fatty infiltration Prominence of the biliary tree may be physiologic in this patient status post cholecystectomy. Pathol ogy such as a stricture or stone can also result in this appearance. If clinically indicated MRCP may be helpful
--- NOTE | 2019-02-25 19:28 | RAD REPORT ---
EXAM DESCRIPTION: USCarotid Artery Bilateral02/25/2019 7:05 pm CLINICAL HISTORY: Bruit COMPARISON: None FINDINGS: The velocity of the right internal carotid artery equals 99 cm/sec. The right ICA/CCA rati o 0.5 The velocity of the left internal carotid artery equals 143 cm/sec. The left ICA/CCA ratio 0.8 Moderate plaque is present within the right common carotid artery. Mild plaque is present within the internal carotid arteries. . Severe plaque is present within the left external carotid artery The vertebral arteries demonstrate antegrade flow IMPRESSION: Moderate plaque within the right common carotid artery Mild plaque within the internal carotid arteries NASCET criteria used. Mild 0-49% stenosis Moderate 50-69% stenosis Severe 70-99% stenosis
[2019-02-25] MEDS: CARVEDILOL 12.5 MG TAB PO SCH (22:16)
[2019-02-26] MEDS: NA CHLORIDE 0.9% 1,000 ML IV SCH (00:16)
[2019-02-26 01:39] VITALS: O2SAT 97
[2019-02-26] MEDS: PANTOPRAZOLE 40MG TABLET PO SCH (05:40)
[2019-02-26] MEDS ORDERED: LEVOTHYROXINE SOD 0.025 MG TAB PO SCH (06:00)
[2019-02-26] MEDS: ENOXAPARIN 40 MG/0.4 ML SQ SCH (08:34)
[2019-02-26] MEDS: CARVEDILOL 12.5 MG TAB PO SCH (08:34)
[2019-02-26 08:35] VITALS: BP 183/81
[2019-02-26 08:51] VITALS: TEMP 97.7
[2019-02-26] MEDS ORDERED: ATORVASTATIN 20 MG TAB PO SCH (09:00)
[2019-02-26] MEDS ORDERED: ASPIRIN EC 81 MG TAB PO SCH (09:00)
[2019-02-26] MEDS ORDERED: LOSARTAN POTASSIUM 50 MG TABLET PO SCH (09:00)
--- NOTE | 2019-02-26 09:37 | P.PN ---
Subjective Date of Service: 02/26/19 Chief Complaint: Chest pain rule out acute coronary syndrome Subjective: Tolerating diet, Ambulating, Improving, Doing well, Other (US was done late last night and thus DC was held. PT cleared for DC today. Denies having any CP, SOB, Chills, Abd pain and n/V) Review of Systems 10-point ROS is otherwise unremarkable Physical Examination - Vital Signs Temperature: 97.7 F Blood Pressure: 183/81 Pulse: 64 Respirations: 14 Pulse Ox (%): 97 - Physical Exam General: Alert, In no apparent distress HEENT: Atraumatic, PERRLA, EOMI Neck: Supple, JVD not distended Respiratory: Clear to auscultation bilaterally, Normal air movement Cardiovascular: Regular rate/rhythm, Normal S1 S2 Gastrointestinal: Normal bowel sounds, No tenderness Musculoskeletal: No tenderness Integumentary: No rashes Neurological: Normal speech, Normal tone, Normal affect Lymphatics: No axilla or inguinal lymphadenopathy - Studies Medications List Reviewed: Yes Assessment And Plan - Current Problems (Diagnosis) (1) Enteritis Current Visit: Yes Status: Resolved (2) Chest pain Current Visit: Yes Status: Resolved Qualifiers: Chest pain type: other chest pain Qualified Code(s): R07.89 - Other chest pain; R07.8 - Other chest pain (3) Diabetes mellitus Onset Date: 03/30/17 Current Visit: No Status: Chronic Qualifiers: Diabetes mellitus type: type 2 Diabetes mellitus retirement insulin use: without superintendent terminal use Diabetes mellitus complication status: without complication Qualified Code(s): E11.9 - Type 2 diabetes mellitus without complications (4) HTN (hypertension) Onset Date: 03/30/17 Current Visit: No Status: Chronic Qualifiers: Hypertension type: essential hypertension (5) Hyperlipidemia Current Visit: No Status: Chronic Qualifiers: Hyperlipidemia type: mixed hyperlipidemia Qualified Code(s): E78.2 - Mixed hyperlipidemia (6) Hypothyroidism Onset Date: 03/30/17 Current Visit: No Status: Chronic Qualifiers: Hypothyroidism type: acquired - Plan DC Patient home today. Abd US negative and pt asymptomatic at this time. Discharge Plan: Home Plan to discharge in: 24 Hours - Code Status/Comfort Care Code Status Assessed: Yes Critical Care: No
--- NOTE | 2019-02-26 14:02 | CON ---
Date of Consultation: 02/25/[address] Richardson's service on 02/24/2019. I saw the patient on 02/25/2019. Reason For Consultation: Hypertension, chest pain. History Of Present Illness: Ms. Nevarez is a 73-year-old female, very much in no acute distress at this point, but she came in initially with dizziness, vomiting, nausea, hypertension with a blood pre ssure systolic 194, sharp stabbing chest pain in the midepigastric region. She denied PND, orthopnea , pedal edema, palpitation, or syncope. Symptoms have been going on for approximately 1 day prior to her arrival. She denied diarrhea. She denied any fever and chills. Past Medical History: Include diabetes. She has breast cancer status post mastectomy, hypothyroidis m. She is status post cholecystectomy and has a history of dyslipidemia as well as peripheral arteri al disease for which she takes aspirin and Plavix. This apparently was documented by Doppler, but th e patient denies any claudication. Allergies: NONE. Review of Systems: Negative. Social History: Negative. Family History: Positive for diabetes. Medications: At home include carvedilol, aspirin, Plavix, Lipitor, glimepiride, and Synthroid. Physical Examination: General: She was pleasant, no acute distress. Vital Signs: Blood pressure was 160/70, sinus rhythm. HEENT: Negative. Neck: Supple without any bruit, lymphadenopathy, JVD, or thyromegaly. Chest: Clear to auscultation and percussion. Cardiac: Revealed a regular rhythm and rate. No murmurs, gallops, or rubs. Abdomen: Benign. Extremities: Revealed no clubbing, cyanosis, or edema. Diagnostic Data: CT of the head was negative. Echocardiogram in [address] of the abdom en shows possible enteritis. Glucose was 247. BNP was 488. Lipase is 404. Impression And Plan: Atypical chest pain with nausea and vomiting, definitely noncardiac in nature. She may have some viral gastroenteritis going on, which was documented by CT of the abdomen. She is status post cholecystectomy and has a slightly elevated lipase. Certainly, a mild case of pancreati tis is possible. She may need a GI consultation or GI workup down the road. Right now, she is asymp tomatic. From a cardiac standpoint, I think because of her risk factors including diabetes, choleste rol, hypertension, I think she should have her heart evaluated with an echocardiogram and a stress te st which can be done as an outpatient. I agree with her present regimen at this time. Regarding her blood pressure, certainly increasing the Coreg dose would be the best thing to do and maybe adding a n VICKEY inhibitor considering her diabetes. From my standpoint, she can go home whenever it is okay wi th Dr. Richardson. I will make arrangements for her to have an outpatient cardiac testing. MARY/IDALIA Voice ID: [id number] Report ID: [id number]
== END 2019-02-26 10:55 | disposition home or self-care (01) ==
LOC: ER 18:30 → ERHOLD 22:29 → 2ND 22:44
PROVIDERS: ADMIT Hospitalist; ATTEND Hospitalist
DX: K52.9 Noninfective gastroenteritis and colitis, unspecified (principal); R07.9 Chest pain, unspecified; I10 Essential (primary) hypertension; E11.9 Type 2 diabetes mellitus without complications; E03.9 Hypothyroidism, unspecified; E78.5 Hyperlipidemia, unspecified; Z85.3 Personal history of malignant neoplasm of breast
CPT/HCPCS: 96361; 93005; 85025 ×2; 80048 ×2; 36415 ×2; 82010; 83735 ×3; 84100; 85610; 80061; 82962 ×6; 80076; 84484 ×3; 83690; 80053; 83880 ×2; 70450; 74177; 71045; 93880; 76700; 94640; 96375; 96374; 99285; Q9967; J1650 ×2; J3475; J7030 ×2; J2405; G0378 ×2; 81003; 81015

== ENCOUNTER 2019-07-13 12:51 | Emergency (ER) | payer OTHER ==
--- NOTE | 2019-07-13 16:08 | EDPHYS ---
[facility] Name: Neris Nevarez Age: 73 yrs Sex: Female : 1945 Arrival Date: 07/13/2019 Time: 12:54 Bed 11 Private MD: ED Physician Angela Matthews HPI: 07/13 16:02 This 73 yrs old Female presents to ER via Ambulatory with complaints of Ear cp Pain, Sore Throat. 16:02 The patient presents with pain, that is acute. The complaints affect the right ear. cp 16:02 Onset: The symptoms/episode began/occurred 4 day(s) ago. Associated signs and symptoms: cp Pertinent positives: sore throat, cough, Pertinent negatives: fever, vomiting, diarrhea. Severity of symptoms: in the emergency department the symptoms are unchanged despite home interventions. Historical: - Allergies: 13:09 No Known Allergies; iw - Home Meds: 13:09 aspirin 81 mg Oral TbEC once daily [Active]; atorvastatin 20 mg Oral tab once daily iw [Active]; carvedilol 12.5 mg Oral tab 2 times per day [Active]; clopidogrel 75 mg Oral tab 1 tab once daily [Active]; glimepiride 1 mg Oral tab twice a day [Active]; levothyroxine 25 mcg tab once daily [Active]; losartan 25 mg oral tab 1 tab once daily [Active]; - PMHx: 13:09 Cancer, Breast; Diabetes - NIDDM; Hypothyroidism; iw - PSHx: 13:09 Mastectomy, Right; Cholecystectomy; ; iw - Immunization history:: Adult Immunizations not up to date. - Social history:: Smoking status: Patient/guardian denies using tobacco. - Ebola Screening: : Patient negative for fever greater than or equal to 101.5 degrees Fahrenheit, and additional compatible Ebola Virus Disease symptoms Patient denies exposure to infectious person Patient denies travel to an Ebola-affected area in the 21 days before illness onset No symptoms or risks identified at this time. ROS: 16:03 Eyes: Negative for injury, pain, redness, and discharge. cp 16:03 Constitutional: Positive for poor PO intake, Negative for body aches, chills, fever. 16:03 ENT: Positive for ear pain, sore throat, Negative for drainage from ear(s), difficulty swallowing, difficulty handling secretions. 16:03 Cardiovascular: Negative for chest pain. 16:03 Respiratory: Positive for cough, Negative for shortness of breath, wheezing. 16:03 Abdomen/GI: Negative for abdominal pain, nausea, vomiting, and diarrhea. 16:03 : Negative for urinary symptoms. 16:03 Neuro: Negative for altered mental status, headache, weakness. 16:03 All other systems are negative. Exam: 16:05 Constitutional: The patient appears in no acute distress, alert, awake, non-toxic, well cp developed, well nourished. 16:05 Head/Face: Normocephalic, atraumatic. cp 16:05 Eyes: Periorbital structures: appear normal, Conjunctiva: normal, no exudate, no injection, Lids and lashes: appear normal, bilaterally. 16:05 ENT: External ear(s): are unremarkable, Ear canal(s): are normal, clear, TM's: bulging, is not appreciated, bilaterally, erythema, that is mild, on the right, fluid levels, on the right, Examination of the other ear shows no obvious abnormality, Nose: is normal, Mouth: Lips: moist, Oral mucosa: pink and intact, moist, Posterior pharynx: Airway: no evidence of obstruction, patent, Tonsils: no exudate, erythema, that is mild, exudate, is not appreciated. 16:05 Neck: ROM/movement: is normal, is supple, without pain, no range of motions limitations, no meningismus, no nuchal rigidity. 16:05 Chest/axilla: Inspection: normal, Palpation: is normal, no crepitus, no tenderness. 16:05 Cardiovascular: Rate: normal, Rhythm: regular. 16:05 Respiratory: the patient does not display signs of respiratory distress, Respirations: normal, no use of accessory muscles, no retractions, no splinting, no tachypnea, labored breathing, is not present, Breath sounds: are clear throughout, no decreased breath sounds, no stridor, no wheezing. 16:05 Abdomen/GI: Exam negative for discomfort, distension, guarding, Inspection: abdomen appears normal. 16:05 Skin: no rash present. Vital Signs: 13:09 BP 172 / 55; Pulse 76; Resp 16; Temp 98.1; Pulse Ox 100% on R/A; Weight 62.6 kg; Height 4 ft. 10 in. (147.32 cm); Pain 10; 13:09 Body Mass Index 28.84 (62.60 kg, 147.32 cm) MDM: 15:42 Patient medically screened. cp 16:00 Differential diagnosis: otitis media, otitis externa, cerumen impaction, strep throat. 16:06 Data reviewed: vital signs, nurses notes, lab test result(s), and as a result, I will cp discharge patient. 16:06 Counseling: I had a detailed discussion with the patient and/or guardian regarding: the cp historical points, exam findings, and any diagnostic results supporting the discharge/admit diagnosis, lab results, to return to the emergency department if symptoms worsen or persist or if there are any questions or concerns that arise at home. 07/13 13:11 Order name: Strep iw 07/13 13:32 Order name: Throat Culture EDMS Administered Medications: No medications were administered Disposition: 18:48 Co-signature as Attending Physician, Angela Matthews MD. ma2 Disposition: 07/13/19 16:07 Discharged to Home. Impression: Otitis media, unspecified, right ear, Acute pharyngitis. - Condition is Stable. - Discharge Instructions: Otitis Media, Adult, Pharyngitis. - Prescriptions for Amoxicillin 875 mg Oral Tablet - take 1 tablet by ORAL route every 12 hours for 10 days; 20 tablet. Ibuprofen 800 mg Oral Tablet - take 1 tablet by ORAL route every 8 hours As needed take with food; 30 tablet. - Medication Reconciliation Form, Thank You Letter, Antibiotic Education, Prescription Opioid Use form. - Follow up: Private Physician; When: 2 - 3 days; Reason: Worsening of condition. - Problem is new. - Symptoms have improved. Signatures: Dispatcher [employer] EDMS Yolanda Bo RN RN Henrique Priest PA PA cp Alzahri, Mohammad, MD MD ma2 Corrections: (The following items were deleted from the chart) 16:15 16:07 07/13/2019 16:07 Discharged to Home. Impression: Otitis media, unspecified, right iw ear; Acute pharyngitis. Condition is Stable. Forms are Medication Reconciliation Form, Thank You Letter, Antibiotic Education, Prescription Opioid Use. Follow up: Private Physician; When: 2 - 3 days; Reason: Worsening of condition. Problem is new. Symptoms have improved. cp
--- NOTE | 2019-07-13 16:08 | ER ---
Nurse's Notes [facility] Name: Neris Nevarez Age: 73 yrs Sex: Female : 1945 Arrival Date: 07/13/2019 Time: 12:54 Bed 11 Private MD: Diagnosis: Otitis media, unspecified, right ear;Acute pharyngitis Presentation: 07/13 13:07 Presenting complaint: Patient states: can't swallow, sore throat, blisters in mouth, no iw fever, feels tired and worn out, also has right earache X 4 days. Transition of care: patient was not received from another setting of care. Onset of symptoms was July 09, 2019. Risk Assessment: Do you want to hurt yourself or someone else? Patient reports no desire to harm self or others. Initial Sepsis Screen: Does the patient meet any 2 criteria? No. Patient's initial sepsis screen is negative. Does the patient have a suspected source of infection? No. Patient's initial sepsis screen is negative. Care prior to arrival: None. 13:07 Method Of Arrival: Ambulatory iw 13:07 Acuity: YOLIE 4 iw Historical: - Allergies: 13:09 No Known Allergies; iw - Home Meds: 13:09 aspirin 81 mg Oral TbEC once daily [Active]; atorvastatin 20 mg Oral tab once daily iw [Active]; carvedilol 12.5 mg Oral tab 2 times per day [Active]; clopidogrel 75 mg Oral tab 1 tab once daily [Active]; glimepiride 1 mg Oral tab twice a day [Active]; levothyroxine 25 mcg tab once daily [Active]; losartan 25 mg oral tab 1 tab once daily [Active]; - PMHx: 13:09 Cancer, Breast; Diabetes - NIDDM; Hypothyroidism; iw - PSHx: 13:09 Mastectomy, Right; Cholecystectomy; ; iw - Immunization history:: Adult Immunizations not up to date. - Social history:: Smoking status: Patient/guardian denies using tobacco. - Ebola Screening: : Patient negative for fever greater than or equal to 101.5 degrees Fahrenheit, and additional compatible Ebola Virus Disease symptoms Patient denies exposure to infectious person Patient denies travel to an Ebola-affected area in the 21 days before illness onset No symptoms or risks identified at this time. Screenin:01 Abuse screen: Denies threats or abuse. Denies injuries from another. Nutritional iw screening: No deficits noted. Tuberculosis screening: No symptoms or risk factors identified. Fall Risk None identified. Assessment: 16:00 General: Appears in no apparent distress. Behavior is calm, cooperative. Pain: iw Complains of pain in throat. Neuro: Level of Consciousness is awake, alert, obeys commands. Respiratory: Respiratory effort is even, unlabored, Respiratory pattern is regular. EENT: Throat is reddened bilaterally with gag reflex present. Derm: Skin is intact, is healthy with good turgor. Musculoskeletal: Range of motion: intact in all extremities. Vital Signs: 13:09 BP 172 / 55; Pulse 76; Resp 16; Temp 98.1; Pulse Ox 100% on R/A; Weight 62.6 kg; Height iw 4 ft. 10 in. (147.32 cm); Pain 10/10; 13:09 Body Mass Index 28.84 (62.60 kg, 147.32 cm) iw ED Course: 12:54 Patient arrived in ED. as 13:08 Triage completed. iw 13:09 Arm band placed on. iw 15:35 Henrique Iraheta PA is PHCP. cp 15:36 Angela Matthews MD is Attending Physician. cp 16:00 Yolanda Bo RN is Primary Nurse. iw 16:00 Patient has correct armband on for positive identification. iw 16:15 No provider procedures requiring assistance completed. Patient did not have IV access iw during this emergency room visit. Administered Medications: No medications were administered Outcome: 16:07 Discharge ordered by . cp 16:15 Patient left the ED. iw 16:15 Discharged to home ambulatory, with family. iw 16:15 Condition: good 16:15 Discharge instructions given to patient, family, Instructed on discharge instructions, follow up and referral plans. medication usage, Demonstrated understanding of instructions, follow-up care, medications, Prescriptions given X 2. Signatures: Loraine Nevarez Irene, JOHN RN iw Henrique Iraheta PA PA cp
[2019-07-13 16:29] VITALS: BP 172/55; TEMP 98.1; O2SAT 100
== END 2019-07-13 16:15 | disposition home or self-care (01) ==
LOC: ER 12:51
DX: H66.91 Otitis media, unspecified, right ear (principal); J02.9 Acute pharyngitis, unspecified; E03.9 Hypothyroidism, unspecified; E11.9 Type 2 diabetes mellitus without complications; Z85.3 Personal history of malignant neoplasm of breast
CPT/HCPCS: 87070; 87081; 99282

== ENCOUNTER 2021-06-11 10:02 | Emergency (ER) | payer OTHER ==
--- OUTSIDE RECORDS SUMMARY | 2021-06-11 10:05 | XMS REPORT | Continuity of Care Document ---
:1945 Author Organization [facility] t Address [address] [place] [address] Care Team Providers Name Role Phone Provider, Urgent Care Attending Clinician Unavailable Lab, Fam Pob I Attending Clinician Unavailable Problems This patient has no known problems. Allergies, Adverse Reactions, Alerts This patient has no known allergies or adverse reactions. Medications This patient has no known medications. Procedures This patient has no known procedures. Encounters Start End Encounter Admission Attending Care Care Encounter Source Date/Time Date/Time Type Type Clinicians Facility Department ID 2020-09-17 2020-09-17 Telephone Provider, [facility] [id number] 00:00:00 00:00:00 [facility] [id number] Care [place] [id number] [address] [phone] [address] 2020-09-16 2020-09-16 Laboratory Lab, [facility] [id number] 13:20:22 13:28:58 Only Fam Pob I Health [id number] [place] [id number] Profess[facility] [phone] [address] Results This patient has no known results.
[2021-06-11 11:44] LABS: Absolute Lymphocytes (CBC) 1.4 K/uL (0.7-4.9); Hematocrit 41.7 % (36.0-45.0); Lymphocytes % 19.3 % (15.3-44.8); MPV 8.8 fL (7.6-11.3); RBC Red Blood Cell Count 4.43 M/uL (3.86-4.86)
--- NOTE | 2021-06-11 11:51 | RAD REPORT ---
EXAM DESCRIPTION: RAD - Chest Single View - 06/11/2021 11:46 am CLINICAL HISTORY: CHEST PAIN COMPARISON: <Comparisons> FINDINGS: No evidence of edema or pneumonia. The heart size is within normal limits.No acute osseous abnormality. No significant pleural effusions or pneumothorax. Atherosclerosis. IMPRESSION: No acute cardiopulmonary disease.
[2021-06-11 12:05] LABS: ALT/SGPT 24 U/L (12-78); AST/SGOT 17 U/L (15-37); Albumin 3.8 g/dL (3.4-5.0); Alkaline Phosphatase 63 U/L (45-117); BUN Blood Urea Nitrogen 16 mg/dL (7-18); Bicarbonate 26 mmol/L (21-32); Bilirubin Direct 0.2 mg/dL (0-0.2); Glucose Level 252 mg/dL (74-106); Magnesium 2.1 mg/dL (1.8-2.4); NT PRO-BNP 506 pg/mL (<125); Potassium 4.7 mmol/L (3.5-5.1); Protein, Total 8.1 g/dL (6.4-8.2); Sodium Level 136 mmol/L (136-145); Troponin (Emerg Dept Use Only) < 0.02 ng/mL (0.0-0.045)
[2021-06-11 13:26] LABS: Protime INR 1.04
--- NOTE | 2021-06-11 13:55 | RAD REPORT ---
EXAM DESCRIPTION: CT - Chest Abdomen Pelvis W Cont - 06/11/2021 1:39 pm CLINICAL HISTORY: Chest and abdominal pain COMPARISON: 2016 TECHNIQUE: Computed axial tomography of the chest, abdomen and pelvis was obtained. 100 cc Isovue-30 0 was administered intravenously. Oral contrast was not given. This limits evaluation of bowel All CT scans are performed using dose optimization technique as appropriate and may include automated exposure control or mA/KV adjustment according to patient size. FINDINGS: Right mastectomy The lungs are clear. Several borderline enlarged mediastinal lymph nodes A pleural effusion is not seen. A pericardial effusion is not noted. Fatty liver. Cholecystectomy. Spleen, pancreas, adrenals and kidneys appear unremarkable Normal appendix. There is no evidence of diverticulitis. IMPRESSION: Several borderline enlarged mediastinal lymph nodes. I suspect these are reactive in brie ure. Follow up CT chest in 3 months recommended to assess stability. Fatty liver
[2021-06-11] MEDS ORDERED: MORPHINE 2 MG/ML SYR ONE (14:15)
--- NOTE | 2021-06-11 16:19 | ER ---
Nurse's Notes [facility] Name: Neris Nevarez Age: 75 yrs Sex: Female : 1945 Arrival Date: 06/11/2021 Time: 10:04 Bed 9 Private MD: Jasmyne Ochoa Diagnosis: Upper abdominal pain, unspecified-Left lateral flank;Left lateral anterior thorax pain Presentation: 06/11 11:35 Chief complaint: Patient states: Left rib cage pain under left breast, radiates to jl7 across mid-back, reports dizziness started today. Coronavirus screen: Client denies travel out of the [place] in the last 14 days. At this time, the client does not indicate any symptoms associated with coronavirus-19. Ebola Screen: No symptoms or risks identified at this time. Initial Sepsis Screen: Does the patient meet any 2 criteria? No. Patient's initial sepsis screen is negative. Does the patient have a suspected source of infection? No. Patient's initial sepsis screen is negative. Risk Assessment: Do you want to hurt yourself or someone else? Patient reports no desire to harm self or others. Onset of symptoms was June 08, 2021. 11:35 Method Of Arrival: Ambulatory jl7 11:35 Acuity: YOLIE 3 jl7 Historical: - Allergies: 11:36 No Known Allergies; jl7 - PMHx: 11:36 Cancer, Breast; Diabetes - NIDDM; Hypothyroidism; DVT; Hypertensive disorder; jl7 - Social history:: Smoking status: Patient denies any tobacco usage or history of. Screenin:50 Abuse screen: Denies threats or abuse. Denies injuries from another. Nutritional kg screening: No deficits noted. Tuberculosis screening: No symptoms or risk factors identified. Fall Risk No fall in past 12 months (0 pts). No secondary diagnosis (0 pts). IV access (20 points). Ambulatory Aid- None/Bed Rest/Nurse Assist (0 pts). Gait- Weak (10 pts.). Mental Status- Oriented to own ability (0 pts). Total Owens Fall Scale indicates No Risk (0-24 pts). Assessment: 14:51 General: Appears in no apparent distress. Behavior is calm, cooperative, appropriate kg for age, quiet. Vital Signs: 11:35 BP 172 / 73; Pulse 62; Resp 17; Temp 98.3; Pulse Ox 100% ; Weight 54.43 kg; Height 4 jl7 ft. 2 in. (127.00 cm); Pain 10/10; 14:16 BP 214 / 73; Pulse 62; Resp 20; Pulse Ox 100% on R/A; kg 14:49 BP 199 / 65; Pulse 65 LA; kg 16:15 BP 140 / 68; Pulse 60; Resp 20; Pulse Ox 99% on R/A; kg 11:35 Body Mass Index 33.75 (54.43 kg, 127.00 cm) jl7 ED Course: 10:04 Patient arrived in ED. as 10:04 Jasmyne Ochoa is Private Physician. as 11:22 Ivy Kohli FNP-C is [facility]. kb 11:36 Triage completed. jl 11:36 Radiology exam delayed due to at 11:35 pts name was called multiple times in ed lobby ml no answer. 11:36 Arm band placed on right wrist. Patient placed in waiting room, Patient notified of [facility] wait time. EKG completed in triage. Results shown to MD. 11:37 Initial lab(s) drawn, by me, sent to lab. Inserted saline lock: 20 gauge in left jl7 antecubital area, using aseptic technique. Blood collected. 11:44 XRAY Chest (1 view) In Process Unspecified. EDMS 12:27 Loi Marin MD is Attending Physician. kdr 13:37 CT Chest, Abdomen, Pelvis - W/Contrast In Process Unspecified. EDMS 13:50 Gena Agosto, RN is Primary Nurse. kg 14:50 Patient has correct armband on for positive identification. Bed in low position. Call kg light in reach. Side rails up X2. Adult w/ patient. 14:50 No provider procedures requiring assistance completed. kg 16:17 Jasmyne Ochoa is Referral Physician. kdr 16:34 IV discontinued, intact, bleeding controlled, No redness/swelling at site. Pressure kg dressing applied. Administered Medications: 14:07 Drug: morphine 2 mg Route: IVP; Site: left antecubital; kg 14:50 Follow up: Response: No adverse reaction; Pain is decreased kg Outcome: 16:19 Discharge ordered by MD. kdr 16:25 Discharged to home via wheelchair, with family. kg 16:25 Condition: good 16:25 Discharge instructions given to patient, family, Instructed on discharge instructions, follow up and referral plans. Demonstrated understanding of instructions, follow-up care. 16:33 Demonstrated understanding of medications, Prescriptions given X 1. kg 16:34 Patient left the ED. kg Signatures: Dispatcher [employer] EDMS Ivy Kohli, BEE TENDER-C BEE TENDER-Ckb Loi Marin MD MD kdr Martinez, Ashley Blas Jahala, RN RN jl7 Gena Agosto RN RN kg
--- NOTE | 2021-06-11 16:19 | EDPHYS ---
Physician Documentation [facility] Name: Neris Nevarez Age: 75 yrs Sex: Female : 1945 Arrival Date: 06/11/2021 Time: 10:04 Bed 9 Private MD: Jasmyne Ochoa ED Physician Loi Marin HPI: 06/11 18:38 This 75 yrs old Female presents to ER via Ambulatory with complaints of Rib kdr Pain. 18:38 The patient presents with abdominal pain in the upper abdomen, The patient states that kdr her pain starts under her left breast and radiates around to her left flank and across the back crossing midline to the right side. The pain started this morning. He has not had this kind of discomfort before. She denies any trauma or other exacerbating circumstances to cause this pain. Onset: The symptoms/episode began/occurred this morning. The symptoms radiate to left back, the left flank, mid back area. Associated signs and symptoms: none. The symptoms are described as achy, constant, dull. Modifying factors: The symptoms are alleviated by nothing, the symptoms are aggravated by nothing. Severity of pain: At its worst the pain was mild moderate in the emergency department the pain is unchanged. The patient has not experienced similar symptoms in the past. The patient has not recently seen a physician. Historical: - Allergies: 11:36 No Known Allergies; jl7 - PMHx: 11:36 Cancer, Breast; Diabetes - NIDDM; Hypothyroidism; DVT; Hypertensive disorder; jl7 - Social history:: Smoking status: Patient denies any tobacco usage or history of. ROS: 18:38 Constitutional: Negative for fever, chills, and weight loss, Eyes: Negative for injury, kdr pain, redness, and discharge, ENT: Negative for injury, pain, and discharge, Neck: Negative for injury, pain, and swelling, Cardiovascular: Negative for chest pain, palpitations, and edema, Respiratory: Negative for shortness of breath, cough, wheezing, and pleuritic chest pain, : Negative for injury, bleeding, discharge, and swelling, MS/Extremity: Negative for injury and deformity, Skin: Negative for injury, rash, and discoloration, Neuro: Negative for headache, weakness, numbness, tingling, and seizure activity. Psych: Negative for depression, anxiety, suicide ideation, homicidal ideation, and hallucinations, Allergy/Immunology: Negative for hives, rash, and allergies, Endocrine: Negative for neck swelling, polydipsia, polyuria, polyphagia, and marked weight changes, Hematologic/Lymphatic: Negative for swollen nodes, abnormal bleeding, and unusual bruising. 18:38 Abdomen/GI: Positive for abdominal pain, of the posterior aspect of left lateral abdomen, anterior aspect of left lateral abdomen and left upper quadrant. 18:38 Back: Positive for pain at rest, of the mid back area. Exam: 18:38 Constitutional: This is a well developed, well nourished patient who is awake, alert, kdr and in no acute distress. Head/Face: Normocephalic, atraumatic. Eyes: Pupils equal round and reactive to light, extra-ocular motions intact. Lids and lashes normal. Conjunctiva and sclera are non-icteric and not injected. Cornea within normal limits. Periorbital areas with no swelling, redness, or edema. Neck: Trachea midline, no thyromegaly or masses palpated, and no cervical lymphadenopathy. Supple, full range of motion without nuchal rigidity, or vertebral point tenderness. No Meningismus. Chest/axilla: Normal chest wall appearance and motion. Nontender with no deformity. No lesions are appreciated. Cardiovascular: Regular rate and rhythm with a normal S1 and S2. No gallops, murmurs, or rubs. Normal PMI, no JVD. No pulse deficits. Respiratory: Lungs have equal breath sounds bilaterally, clear to auscultation and percussion. No rales, rhonchi or wheezes noted. No increased work of breathing, no retractions or nasal flaring. Abdomen/GI: Soft, non-tender, with normal bowel sounds. No distension or tympany. No guarding or rebound. No evidence of tenderness throughout. Skin: Warm, dry with normal turgor. Normal color with no rashes, no lesions, and no evidence of cellulitis. MS/ Extremity: Pulses equal, no cyanosis. Neurovascular intact. Full, normal range of motion. Neuro: Awake and alert, GCS 15, oriented to person, place, time, and situation. Cranial nerves II-XII grossly intact. Motor strength 5/5 in all extremities. Sensory grossly intact. Cerebellar exam normal. Normal gait. Psych: Awake, alert, with orientation to person, place and time. Behavior, mood, and affect are within normal limits. 18:38 Back: pain, that is mild, of the mid back area, ROM is painless, normal spinal alignment noted, CVA tenderness, is absent, vertebral tenderness, is not appreciated, muscle spasm, is not present. Vital Signs: 11:35 BP 172 / 73; Pulse 62; Resp 17; Temp 98.3; Pulse Ox 100% ; Weight 54.43 kg; Height 4 jl7 ft. 2 in. (127.00 cm); Pain 10/10; 14:16 BP 214 / 73; Pulse 62; Resp 20; Pulse Ox 100% on R/A; kg 14:49 BP 199 / 65; Pulse 65 LA; kg 16:15 BP 140 / 68; Pulse 60; Resp 20; Pulse Ox 99% on R/A; kg 11:35 Body Mass Index 33.75 (54.43 kg, 127.00 cm) jl7 MDM: 16:19 Patient medically screened. kdr 18:38 Data reviewed: vital signs, nurses notes, radiologic studies. Counseling: I had a kdr detailed discussion with the patient and/or guardian regarding: the historical points, exam findings, and any diagnostic results supporting the discharge/admit diagnosis, radiology results, the need for outpatient follow up. 06/11 11:23 Order name: Basic Metabolic Panel; Complete Time: 13:26 kb 06/11 11:23 Order name: CBC with Diff; Complete Time: 13:26 kb 06/11 11:23 Order name: LFT's; Complete Time: 13:26 kb 06/11 11:23 Order name: Magnesium; Complete Time: 13:26 kb 06/11 11:23 Order name: NT PRO-BNP; Complete Time: 13:26 kb 06/11 11:23 Order name: PT-INR; Complete Time: 13:28 kb 06/11 11:23 Order name: Troponin (emerg Dept Use Only); Complete Time: 13:26 kb 06/11 11:23 Order name: XRAY Chest (1 view); Complete Time: 13:26 kb 06/11 11:23 Order name: EKG; Complete Time: 11:24 kb 06/11 11:23 Order name: Cardiac monitoring; Complete Time: 14:18 kb 06/11 11:23 Order name: EKG - Nurse/Tech; Complete Time: 11:38 kb 06/11 11:23 Order name: IV Saline Lock; Complete Time: 11:38 kb 06/11 13:26 Order name: CT Chest, Abdomen, Pelvis - W/Contrast; Complete Time: 14:37 kdr 06/11 11:23 Order name: Labs collected and sent; Complete Time: 11:38 kb 06/11 11:23 Order name: O2 Per Protocol; Complete Time: 11:38 kb 06/11 11:23 Order name: O2 Sat Monitoring; Complete Time: 11:38 kb Administered Medications: 14:07 Drug: morphine 2 mg Route: IVP; Site: left antecubital; kg 14:50 Follow up: Response: No adverse reaction; Pain is decreased kg Disposition Summary: 06/11/21 16:19 Discharge Ordered Location: Home kdr Problem: new kdr Symptoms: have improved kdr Condition: Stable kdr Diagnosis - Upper abdominal pain, unspecified - Left lateral flank kdr - Left lateral anterior thorax pain kdr Followup: kdr - With: Jasmyne Ochoa - When: 2 - 3 days - Reason: If symptoms return, Further diagnostic work-up, Recheck today's complaints, Continuance of care, Re-evaluation by your physician Discharge Instructions: - Discharge Summary Sheet kdr - Abdominal Pain, Adult kdr - Flank Pain, Adult kdr - Constipation, Adult, [id number] kdr - Flank Pain, Adult, [id number] kdr - Hypertension, Adult, [id number] kdr Forms: - Medication Reconciliation Form kdr - Thank You Letter kdr Prescriptions: - Miralax 17 gram Oral powder in packet - take 1 packet by ORAL route once daily; 1 box; Refills: 0, Product Selection kdr Permitted Signatures: Dispatcher [employer] Ivy Catherine, DIRECTOR MULTIMEDIA-C DIRECTOR MULTIMEDIA-Loi Corbin MD MD kdr Bertha Echavarria, RN RN jl7 Gena Agosto, RN RN kg
[2021-06-11 16:58] VITALS: TEMP 98.3
[2021-06-11 17:03] VITALS: BP 140/68; O2SAT 99
== END 2021-06-11 16:34 | disposition home or self-care (01) ==
LOC: ER 10:02
DX: R07.89 Other chest pain (principal); I10 Essential (primary) hypertension; Z85.3 Personal history of malignant neoplasm of breast
CPT/HCPCS: 93005; 85025; 80048; 36415; 83735; 85610; 80076; 84484; 83880; 71260; 74177; 71045; 96374; 99284; Q9967; J2270

== ENCOUNTER 2021-10-20 10:03 | Emergency (ER) | payer OTHER ==
--- OUTSIDE RECORDS SUMMARY | 2021-10-20 10:07 | XMS REPORT | Continuity of Care Document ---
:1945 Author Organization [facility] t Address [address] [place] [address] Care Team Providers Name Role Phone Provider, Urgent Care Attending Clinician Unavailable Lab, Fam Pob I Attending Clinician Unavailable Anene MEDICAL OFFICE SPECIALIST Attending Clinician ANENE Attending Clinician Unavailable Doctor Unassigned, Name Attending Clinician Unavailable Payers Payer Name Policy Type Policy Number Effective Date Expiration Date S ource Problems This patient has no known problems. Allergies, Adverse Reactions, Alerts Allergy Allergy Status Severity Reaction(s) Onset Inactive Treating Comm ents Source Name Type Date Date Clinician NO KNOWN Drug Active Univers ALLERGIE Class ity of [facility] Social History Social Habit Start Date Stop Date Quantity Comments Source Exposure to Yes [facility] SARS-CoV-2 [facility] [place] [facility] (event) Branch Sex Assigned At Universit y of [facility] Tobacco use and 2017-11-26 2017-11-26 Never used Universit y of exposure 00:00:00 00:00:00 [facility] Alcohol intake 2017-11-26 2017-11-26 Current University 00:00:00 00:00:00 non-drinker of [facility] alcohol Branch (finding) Smoking Status Start Date Stop Date Source Current some day smoker 2017-11-26 00:00:00 [facility] Medications Ordered Filled Start Stop Current Ordering Indication Dosage Frequency Signature Comments Components Source Medication Medication Date Date Medication? Clinician (SIG) Name Name glimepiride Yes 1mg Take 1 mg U nivers 1 mg tablet 1-24 by mouth 2 it y of 16:31: (two) [place] 35 times Medical daily. Branch atorvastati 0 Yes 20mg Take 20 mg Univers n 20 mg 1-24 by mouth ity of tablet 16:31: at [place] [address] bedtime. Medical Branch clopidogrel 0 Yes 75mg Take 75 mg Univers 75 mg 1-24 by mouth ity of tablet 16:31: daily. [place] [address] Medical Branch carvedilol Yes 12.5mg Take 12.5 Univers 12.5 mg 1-24 mg by ity of tablet 16:31: mouth 2 [place] [address] (two) Medical times [place] daily with meals. levothyroxi 0 Yes 25ug Take 25 Uni vers ne 25 mcg 1-24 mcg by ity of tablet 16:31: mouth [place] [address] every Medical morning. Branch aspirin 81 0 Yes 81mg Take 81 mg U nivers mg EC 1-24 by mouth ity of tablet 16:31: daily. [address] Branch valsartan 0 Yes 40mg Take 40 mg Un nishant 40 mg 1-24 by mouth ity of tablet 16:31: daily. [place] [address] Medical Branch vitamin 2017-0 Yes 1000ug Take 1,000 Un nishant B-12 1-24 mcg by ity of (VITAMIN 16:31: mouth [place] B-12) 1,000 35 daily. Medica l mcg tablet Branch glimepiride 0 Yes 1mg Take 1 mg U nivers 1 mg tablet 1-24 by mouth 2 it y of 16:31: (two) [place] [address] times Medical daily. Branch atorvastati Yes 20mg Take 20 mg Univers n 20 mg 1-24 by mouth ity of tablet 16:31: at [place] [address] bedtime. Medical Branch clopidogrel 0 Yes 75mg Take 75 mg Univers 75 mg 1-24 by mouth ity of tablet 16:31: daily. [place] [address] Medical Branch carvedilol 0 Yes 12.5mg Take 12.5 Univers 12.5 mg 1-24 mg by ity of tablet 16:31: mouth 2 [place] [address] (two) Medical times [place] daily with meals. levothyroxi 0 Yes 25ug Take 25 Uni vers ne 25 mcg 1-24 mcg by ity of tablet 16:31: mouth [place] 35 every Medical morning. Branch aspirin 81 0 Yes 81mg Take 81 mg U nivers mg EC 1-24 by mouth ity of tablet 16:31: daily. [place] [address] Medical Branch valsartan 2017-0 Yes 40mg Take 40 mg Un nishant 40 mg 1-24 by mouth ity of tablet 16:31: daily. [address] Branch vitamin 2018-0 Yes 1000ug Take 1,000 Un nishant B-12 1-24 mcg by ity of (VITAMIN 16:31: mouth [place] B-12) 1,000 35 daily. Medica l mcg tablet Branch glimepiride 0 Yes 1mg Take 1 mg U nivers 1 mg tablet 1-24 by mouth 2 it y of 16:31: (two) [place] 35 times Medical daily. Branch atorvastati 0 Yes 20mg Take 20 mg Univers n 20 mg 1-24 by mouth ity of tablet 16:31: at [place] [address] bedtime. Medical Branch clopidogrel Yes 75mg Take 75 mg Univers 75 mg 1-24 by mouth ity of tablet 16:31: daily. [place] [address] Medical Branch carvedilol 0 Yes 12.5mg Take 12.5 Univers 12.5 mg 1-24 mg by ity of tablet 16:31: mouth 2 [place] [address] (two) Medical times Branch daily with meals. levothyroxi 0 Yes 25ug Take 25 Uni vers ne 25 mcg 1-24 mcg by ity of tablet 16:31: mouth [place] 35 every Medical morning. Branch aspirin 81 0 Yes 81mg Take 81 mg U nivers mg EC 1-24 by mouth ity of tablet 16:31: daily. [place] [address] Medical Branch valsartan 0 Yes 40mg Take 40 mg Un nishant 40 mg 1-24 by mouth ity of tablet 16:31: daily. [place] [address] Medical Branch vitamin 2018-0 Yes 1000ug Take 1,000 Un nishant B-12 1-24 mcg by ity of (VITAMIN 16:31: mouth [place] B-12) 1,000 35 daily. Medica l mcg tablet Branch glimepiride 0 Yes 1mg Take 1 mg U nivers 1 mg tablet 1-24 by mouth 2 it y of 16:31: (two) [place] 35 times Medical daily. Branch atorvastati 0 Yes 20mg Take 20 mg Univers n 20 mg 1-24 by mouth ity of tablet 16:31: at [place] [address] bedtime. Medical Branch clopidogrel 2018- Yes 75mg Take 75 mg Univers 75 mg 1-24 by mouth ity of tablet 16:31: daily. [address] carvedilol 2017- Yes 12.5mg Take 12.5 Univers 12.5 mg 1-24 mg by ity of tablet 16:31: mouth 2 [place] [address] (two) Medical times Branch daily with meals. levothyroxi 2017- Yes 25ug Take 25 Uni vers ne 25 mcg 1-24 mcg by ity of tablet 16:31: mouth [place] [address] every Medical morning. Branch aspirin 81 2018- Yes 81mg Take 81 mg U nivers mg EC 1-24 by mouth ity of tablet 16:31: daily. [address] valsartan Yes 40mg Take 40 mg Un nishant 40 mg 1-24 by mouth ity of tablet 16:31: daily. [address] vitamin 2017- Yes 1000ug Take 1,000 Un nishant B-12 1-24 mcg by ity of (VITAMIN 16:31: mouth [place] B-12) 1,000 35 daily. Medica l mcg tablet Branch Procedures This patient has no known procedures. Encounters Start End Encounter Admission Attending Care Care Encounter Source Date/Time Date/Time Type Type Clinicians Facility Department ID 2020-09-17 2020-09-17 Telephone Provider, [facility] [id number] Univers 00:00:00 00:00:00 [facility] [id number] ity of Care [place] [id number] Patrick as Professio [phone] Mi dical [address] 2020-09-17 2020-09-17 Telephone Provider, [facility] [id number] 00:00:00 00:00:00 [facility] [id number] Care [place] [id number] Professio [phone] [place] [address] [address] 2020-09-16 2020-09-16 Laboratory Lab, Adc Fam Pob I [facility] [id number] Univers 13:20:22 13:28:58 Only A[facility]andel, [facility] [id number] ity of [place] [id number] Patrick as Professio [phone] Mi dical [facility] [address] Branch [address] 2020-09-16 2020-09-16 Laboratory Lab, [facility] [id number] 13:20:22 13:28:58 Only Fam Pob I Health [id number] [place] [id number] Professio [phone] nal [facility] Office [address] 2020-09-16 2020-09-16 Outpatient Shaji MARINO [facility] [id number] Univers 13:20:00 13:20:00 KT solorio of [facility] 2020-09-16 2020-09-16 Letter Doctor DINA [id number] Univers 00:00:00 00:00:00 (Out) Unassigned, MEREDITH [id number] ity of [place] [id number] Patrick as [phone] [place] [address] Branch Results This patient has no known results.
[2021-10-20] MEDS ORDERED: NA CHLORIDE 0.9% 500 ML ONE (11:24)
[2021-10-20] MEDS ORDERED: FENTANYL CITR 100 MCG/2 ML ONE (11:24)
--- NOTE | 2021-10-20 11:52 | RAD REPORT ---
EXAM DESCRIPTION: RAD - Hip Right 2 View - 10/20/2021 11:46 am CLINICAL HISTORY: PAIN COMPARISON: No comparisons FINDINGS: No acute fracture. No malalignment. Moderate right acetabular degenerative changes. Periph eral vascular calcifications. IMPRESSION: No acute osseous abnormality involving the right hip.
--- NOTE | 2021-10-20 12:48 | RAD REPORT ---
EXAM DESCRIPTION: US - Extremity Venous Uni Ltd - 10/20/2021 12:40 pm CLINICAL HISTORY: Pain COMPARISON: None. TECHNIQUE: Real-time sonographic evaluation of the right lower extremity deep venous system was perf ormed. FINDINGS: Normal compressibility, flow augmentation, phasic flow and spontaneous flow is identified in the right lower extremity deep venous system. No intraluminal filling defects seen. IMPRESSION: No DVT in the right lower extremity.
[2021-10-20 12:49] LABS: Hematocrit 42.4 % (36.0-45.0)
[2021-10-20 12:50] LABS: Absolute Lymphocytes (CBC) 1.4 K/uL (0.7-4.9); Basophils % 0.2 % (0-1.3); Lymphocytes % 12.2 % (15.3-44.8); MPV 8.8 fL (7.6-11.3)
--- NOTE | 2021-10-20 12:55 | RAD REPORT ---
EXAM DESCRIPTION: US - Lower Extremity Artery Uni Ltd - 10/20/2021 12:40 pm CLINICAL HISTORY: Leg pain COMPARISON: None FINDINGS: The right common femoral, superficial femoral and popliteal arteries demonstrate biphasic waveforms. Monophasic flow is present within the right posterior tibial and dorsalis pedis arteries. 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
[2021-10-20 13:04] LABS: Albumin 3.2 g/dL (3.4-5.0); Bilirubin Direct 0.1 mg/dL (0-0.2); Bilirubin Total 0.5 mg/dL (0.2-1.0); Potassium 4.1 mmol/L (3.5-5.1); Protein, Total 7.6 g/dL (6.4-8.2)
[2021-10-20] MEDS ORDERED: KETOROLAC 30 MG/ML INJ ONE (13:31)
--- NOTE | 2021-10-20 14:08 | RAD REPORT ---
EXAM DESCRIPTION: CT - Abdomen Pelvis W Contrast - 10/20/2021 1:29 pm CLINICAL HISTORY: right hip pain COMPARISON: Abdomen Pelvis W Contrast dated 02/24/2019 TECHNIQUE: Biphasic, helical CT imaging of the abdomen and pelvis was performed following 100 ml non -ionic IV contrast. No oral contrast administered. All CT scans are performed using dose optimization technique as appropriate and may include automated exposure control or mA/KV adjustment according to patient size. FINDINGS: Right-sided mastectomy changes are present. No acute pleural or parenchymal process at the lung base. No cardiomegaly or pericardial effusion. Liver shows mild diffuse fatty infiltration with no focal liver lesion. No portal vein abnormality. G allbladder is absent. Biliary tree is mildly dilated but not outside of normal range. Liver and pancr eas show no suspicious findings. Symmetric renal function is seen with no hydronephrosis or suspicious renal mass. No pyelonephritis o r acute parenchymal process. No bladder abnormalities. No adrenal abnormalities. Uterus and ovaries s how no suspicious findings. No dilated bowel loops or bowel wall thickening. Appendix is normal. No free air, free fluid or infla mmatory stranding. No hernia, mass or bulky lymphadenopathy. Patient has bony degenerative change. No AVN or pathologic bone changes in the hip joint or proximal right femur. No acute or pathologic changes present to the bony pelvis. Two small matching rounded mita cencies superior aspects of each side pubic symphysis have corticated margins and are unchanged from 2019. IMPRESSION: No pathologic bone changes or soft tissue abnormalities in the region of the right hip j oint to explain a right hip pain pattern. Above detailed CT abdomen and pelvis findings are not clearly different from 2019. No acute or active process confirmed.
--- NOTE | 2021-10-20 14:47 | EDPHYS ---
Physician Documentation [facility] Name: Neris Nevarez Age: 76 yrs Sex: Female : 1945 Arrival Date: 10/20/2021 Time: 10:05 Bed 6 Private MD: ED Physician Henrique Nieves HPI: 10/20 11:05 This 76 yrs old Female presents to ER via Ambulatory with complaints of Hip cp Pain. 11:05 The patient or guardian reports pain. The complaints affect the right hip. cp 11:05 Onset: The symptoms/episode began/occurred couple weeks ago. cp 11:05 Associated signs and symptoms: Pertinent negatives: diarrhea, dysuria, fever, weakness, cp injury. Severity of symptoms: in the emergency department the symptoms are unchanged. The patient has been recently seen by a physician: the patient's primary care provider, with similar presenting complaints, and apparently given a diagnosis of bursitis of hip and prescribed steroids. Historical: - Allergies: 10:36 No Known Allergies; ww - PMHx: 10:36 Hypothyroidism; Hypertensive disorder; DVT; Diabetes - NIDDM; Cancer, Breast; ww - PSHx: 10:36 mastectomy; section; gallbladder; ww - Immunization history:: Pneumococcal vaccine is not up to date. - Social history:: Smoking status: Patient/guardian denies using tobacco. ROS: 11:10 MS/extremity: Positive for pain, of the right leg and right hip, Negative for injury or cp acute deformity, decreased range of motion. 11:10 Constitutional: Negative for body aches, chills, fever, poor PO intake. cp 11:10 Cardiovascular: Negative for chest pain, edema, palpitations. cp 11:10 Eyes: Negative for injury, pain, redness, and discharge. cp 11:10 Neck: Negative for pain with movement, pain at rest, stiffness. 11:10 Respiratory: Negative for cough, shortness of breath, wheezing. 11:10 Abdomen/GI: Negative for abdominal pain, nausea, vomiting, and diarrhea, constipation. 11:10 Back: Positive for pain at rest, Negative for injury or acute deformity, decreased range of motion. 11:10 Neuro: Negative for dizziness, headache, syncope, weakness. 11:10 : Negative for urinary symptoms. cp 11:10 All other systems are negative. cp Exam: 11:15 Constitutional: The patient appears in no acute distress, alert, awake, non-toxic, well cp developed, frail. 11:15 Head/Face: Normocephalic, atraumatic. cp 11:15 Eyes: Periorbital structures: appear normal, Conjunctiva: normal, no exudate, no injection, Sclera: no appreciated abnormality, Lids and lashes: appear normal, bilaterally. 11:15 ENT: External ear(s): are unremarkable, Nose: is normal, Mouth: Lips: moist, Oral mucosa: moist, Posterior pharynx: Airway: no evidence of obstruction, patent. 11:15 Neck: ROM/movement: is normal, is supple, without pain, no range of motions limitations. 11:15 Chest/axilla: Inspection: normal, Palpation: is normal, no crepitus, no tenderness. 11:15 Cardiovascular: Rate: normal. 11:15 Respiratory: the patient does not display signs of respiratory distress, Respirations: normal, no use of accessory muscles, no retractions, labored breathing, is not present. 11:15 Abdomen/GI: Inspection: abdomen appears normal, Palpation: abdomen is soft and non-tender, in all quadrants, rebound tenderness, is not appreciated, involuntary guarding, is not appreciated. 11:15 Back: pain, that is mild, of the right low back, ROM is normal. 11:15 Musculoskeletal/extremity: Extremities: grossly normal except: noted in the right hip: pain, There is no evidence of decreased ROM, deformity, Perfusion: the extremity is normally perfused throughout, the right leg Sensation intact. Vital Signs: 10:33 BP 127 / 48; Pulse 67; Resp 18; Temp 97.7; Pulse Ox 100% on R/A; Weight 51.71 kg; ww Height 4 ft. 11 in. (149.86 cm); Pain 10/10; 12:34 BP 118 / 68; Pulse 91; Resp 18; Pulse Ox 95% on R/A; villanueva 15:15 BP 122 / 75; Pulse 89; Resp 18 S; Pulse Ox 95% on R/A; jd3 10:33 Body Mass Index 23.02 (51.71 kg, 149.86 cm) ww MDM: 10:45 Patient medically screened. willa 11:57 ED course: no results found on inquiry of [place] prescription monitor website. cp 14:45 Data reviewed: vital signs, nurses notes, lab test result(s), radiologic studies, CT cp scan, plain films. 14:45 Test interpretation: by ED physician or midlevel provider: plain radiologic studies. cp Counseling: I had a detailed discussion with the patient and/or guardian regarding: the historical points, exam findings, and any diagnostic results supporting the discharge/admit diagnosis, lab results, radiology results, the need for outpatient follow up, a orthopedic surgeon, to return to the emergency department if symptoms worsen or persist or if there are any questions or concerns that arise at home. Response to treatment: the patient's symptoms have markedly improved after treatment, and as a result, I will discharge patient. 10/20 10:57 Order name: Basic Metabolic Panel; Complete Time: 14:12 10/20 14:12 Interpretation: Normal except: CL 109; CO2 19; GLUC 219; BUN 50; CRE 1.47; GFR 35. 10/20 10:57 Order name: CBC with Diff; Complete Time: 12:59 10/20 14:15 Interpretation: Normal except: WBC 11.10; JESSE% 80.5; LYM% 12.2; NEUT A 8.9. 10/20 10:57 Order name: Hepatic Function; Complete Time: 14:12 10/20 14:12 Interpretation: Normal except: AST 8; ALB 3.2; GLOB 4.4; A/G 0.7. 10/20 10:57 Order name: Lipase; Complete Time: 14:12 10/20 14:12 Interpretation: Abnormal: LIP 470. 10/20 10:57 Order name: XRAY Hip RIGHT 2 view; Complete Time: 11:58 10/20 10:57 Order name: IV Saline Lock; Complete Time: 11:30 cp 10/20 10:57 Order name: Labs collected and sent; Complete Time: 12:21 cp 10/20 12:03 Order name: CT Abd/Pelvis - IV Contrast Only; Complete Time: 14:12 10/20 14:14 Interpretation: Report reviewed. 10/20 12:03 Order name: Extremity Venous Unilateral Ltd; Complete Time: 12:59 cp 10/20 12:03 Order name: LE Artery Uni Ltd; Complete Time: 12:59 cp Administered Medications: 11:30 Drug: fentaNYL (PF) 25 mcg Route: IVP; Site: left antecubital; villanueva 15:17 Follow up: Response: No adverse reaction; RASS: Alert and Calm (0) jd3 11:30 Drug: NS 0.9% 500 ml Route: IV; Rate: 75 ml/hr; Site: left antecubital; villan[place]va 15:16 Follow up: Response: No adverse reaction; IV Status: Completed infusion jd3 13:32 Drug: Ketorolac 15 mg Route: IVP; Site: left antecubital; [facility] 14:30 Follow up: Response: No adverse reaction jd3 Disposition Summary: 10/20/21 14:46 Discharge Ordered Location: Home cp Problem: new cp Symptoms: have improved cp Condition: Stable cp Diagnosis - Pain in right hip cp - Peripheral vascular disease, unspecified cp Followup: cp - With: Timbo Calvert MD - When: 2 - 3 days - Reason: right hip pain Discharge Instructions: - Discharge Summary Sheet cp - Peripheral Vascular Disease cp - Hip Pain cp - Aspirin and Your Heart cp Forms: - Medication Reconciliation Form cp - Thank You Letter cp - Antibiotic Education cp - Prescription Opioid Use cp Prescriptions: - Mobic 7.5 mg Oral Tablet - take 1 tablet by ORAL route once daily take with food; 20 tablet; Refills: 0, cp Product Selection Permitted - Tramadol 50 mg Oral Tablet - take 1 tablet by ORAL route every 8 hours as needed; 12 tablet; Refills: 0, cp Product Selection Permitted Addendum: 10/21/2021 18:47 Co-signature as Attending Physician, Henrique Nieves MD I agree with the assessment and c villanueva plan of care. Signatures: Dispatcher [employer] Henrique Gutierrez MD MD cha Page, Corey, PA PA cp Rees, Jessica RN RN jh5 Shanna Elder RN RN bina RubinStageKandace castro Jonathon RN jd3 Corrections: (The following items were deleted from the chart) 14:46 10/20 11:10 Abdomen/GI: Negative for abdominal pain, nausea, vomiting, and diarrhea, cp constipation, cp 10/21 14:46 10/20 11:10 Back: Negative for pain at rest, pain with movement, cp cp 10/21 14:46 12 11:10 All other systems are negative, cp cp
--- NOTE | 2021-10-20 14:47 | ER ---
Nurse's Notes [facility] Name: Neris Nevarez Age: 76 yrs Sex: Female : 1945 Arrival Date: 10/20/2021 Time: 10:05 Bed 6 Private MD: Diagnosis: Pain in right hip;Peripheral vascular disease, unspecified Presentation: 10/20 10:33 Chief complaint: Patient states: Right hip pain. Saw Jasmyne Yony last week and was ww diagnosis with bursitits and given Ibuprofen and Medrol dose rene. Pain is becoming unbearable. Coronavirus screen: Vaccine status: Patient reports being unvaccinated. Client denies travel out of the [place] in the last 14 days. Ebola Screen: Patient negative for fever greater than or equal to 101.5 degrees Fahrenheit, and additional compatible Ebola Virus Disease symptoms Patient denies exposure to infectious person. Patient denies travel to an Ebola-affected area in the 21 days before illness onset. Initial Sepsis Screen: Does the patient meet any 2 criteria? No. Patient's initial sepsis screen is negative. Does the patient have a suspected source of infection? No. Patient's initial sepsis screen is negative. Risk Assessment: Do you want to hurt yourself or someone else? Patient reports no desire to harm self or others. Onset of symptoms was October 13, 2021. 10:33 Method Of Arrival: Ambulatory ww 10:33 Acuity: YOLIE 3 ww Triage Assessment: 10:36 General: Appears uncomfortable, Behavior is calm, appropriate for age. Pain: Complains ww of pain in buttocks, posterior aspect of right lateral abdomen and anterior aspect of right lateral abdomen Pain currently is 10 out of 10 on a pain scale. EENT: No deficits noted. No signs and/or symptoms were reported regarding the EENT system. Neuro: No deficits noted. Level of Consciousness is awake, alert, obeys commands, Oriented to person, place, time, situation, Appropriate for age Speech is normal. Cardiovascular: No deficits noted. Denies chest pain, Capillary refill < 3 seconds. Respiratory: No deficits noted. Airway is patent Respiratory effort is even, unlabored, Respiratory pattern is regular, symmetrical. GI: No deficits noted. No signs and/or symptoms were reported involving the gastrointestinal system. : No deficits noted. No signs and/or symptoms were reported regarding the genitourinary system. Derm: No deficits noted. No signs and/or symptoms reported regarding the dermatologic system. Skin is intact, Skin is pink, warm \T\ dry. Musculoskeletal: Reports pain in low back area, left low back and buttocks. Historical: - Allergies: 10:36 No Known Allergies; ww - PMHx: 10:36 Hypothyroidism; Hypertensive disorder; DVT; Diabetes - NIDDM; Cancer, Breast; ww - PSHx: 10:36 mastectomy; section; gallbladder; ww - Immunization history:: Pneumococcal vaccine is not up to date. - Social history:: Smoking status: Patient/guardian denies using tobacco. Screenin:26 Abuse screen: Denies threats or abuse. Denies injuries from another. Nutritional villanueva screening: No deficits noted. Tuberculosis screening: No symptoms or risk factors identified. Fall Risk IV access (20 points). Ambulatory Aid- None/Bed Rest/Nurse Assist (0 pts). Gait- Weak (10 pts.). Assessment: 11:26 General: Appears uncomfortable. Pain: Complains of pain in right iliac crest and right villanueva hip Pain radiates to low back area, left low back and left mid back. Musculoskeletal: Reports Pain is 10 out of 10 on a pain scale. 11:30 Reassessment: lab called to assist in lab draw. villanueva 15:15 Reassessment: Patient appears in no apparent distress at this time. No changes from jd3 previously documented assessment. Patient and/or family updated on plan of care and expected duration. Pain level reassessed. Patient is alert, oriented x 3, equal unlabored respirations, skin warm/dry/pink. Patient states feeling better. Vital Signs: 10:33 BP 127 / 48; Pulse 67; Resp 18; Temp 97.7; Pulse Ox 100% on R/A; Weight 51.71 kg; ww Height 4 ft. 11 in. (149.86 cm); Pain 10/10; 12:34 BP 118 / 68; Pulse 91; Resp 18; Pulse Ox 95% on R/A; villanueva 15:15 BP 122 / 75; Pulse 89; Resp 18 S; Pulse Ox 95% on R/A; jd3 10:33 Body Mass Index 23.02 (51.71 kg, 149.86 cm) ED Course: 10:05 Patient arrived in ED. rg4 10:36 Triage completed. ww 10:36 Arm band placed on left wrist. ww 10:43 Henrique Iraheta PA is PHCP. cp 10:43 Henrique Nieves MD is Attending Physician. cp 10:44 Kandace Gudino is Primary Nurse. villanueva 11:26 Patient has correct armband on for positive identification. Bed in low position. villanueva 11:26 No provider procedures requiring assistance completed. Inserted saline lock: 22 gauge villanueva in left antecubital area, using aseptic technique. 11:46 XRAY Hip RIGHT 2 view In Process Unspecified. EDMS 11:54 Basic Metabolic Panel Sent. villanueva 11:54 CBC with Diff Sent. villanueva 11:54 Hepatic Function Sent. villanueva 11:54 Lipase Sent. villanueva 12:40 US Extremity Venous Unilateral Ltd In Process Unspecified. EDMS 12:40 US LE Artery Uni Ltd In Process Unspecified. EDMS 13:29 CT Abd/Pelvis - IV Contrast Only In Process Unspecified. EDMS 14:45 Timbo Calvert MD is Referral Physician. cp 15:16 IV discontinued, intact, bleeding controlled, No redness/swelling at site. Pressure jd3 dressing applied. Administered Medications: 11:30 Drug: fentaNYL (PF) 25 mcg Route: IVP; Site: left antecubital; [place]an[place]va 15:17 Follow up: Response: No adverse reaction; RASS: Alert and Calm (0) jd3 11:30 Drug: NS 0.9% 500 ml Route: IV; Rate: 75 ml/hr; Site: left antecubital; villan[place]va 15:16 Follow up: Response: No adverse reaction; IV Status: Completed infusion jd3 13:32 Drug: Ketorolac 15 mg Route: IVP; Site: left antecubital; [facility] 14:30 Follow up: Response: No adverse reaction jd3 Outcome: 14:46 Discharge ordered by MD. cp 15:16 Discharged to home ambulatory, with family. jd3 15:16 Condition: stable 15:16 Discharge instructions given to patient, family, Instructed on discharge instructions, follow up and referral plans. medication usage, Demonstrated understanding of instructions, follow-up care, medications, Prescriptions given X 2. 15:17 Patient left the ED. jd3 Signatures: Dispatcher [employer] EDMS Henrique Iraheta PA PA cp Mini Lewis rg4 Ugo Potter RN RN jd3 Kate Ortiz RN RN jh5 Shanna Elder RN RN ww Au-StagerKandace Corrections: (The following items were deleted from the chart) 10:38 10:33 Chief complaint: Patient states: Left hip pain. Saw Jasmyne Yony last week and ww was diagnosis with bursitits and given Ibuprofen and Medrol dose rene. Pain is becoming unbearable. bina 15:17 11:44 Response: No adverse reaction kay jd3
[2021-10-20 15:23] VITALS: TEMP 97.7
[2021-10-20 15:25] VITALS: O2SAT 95
[2021-10-20 15:27] VITALS: BP 122/75
== END 2021-10-20 15:17 | disposition home or self-care (01) ==
LOC: ER 10:03
DX: I73.9 Peripheral vascular disease, unspecified (principal); I10 Essential (primary) hypertension; Z85.3 Personal history of malignant neoplasm of breast
CPT/HCPCS: 85025; 80048; 36415; 80076; 83690; 74177; 73502; 93926; 93971; Q9967; J3010; J7040; 96361; 96374; 96375; 99284

== ENCOUNTER 2021-11-10 17:03 | Emergency (ER) | payer OTHER ==
--- OUTSIDE RECORDS SUMMARY | 2021-11-10 17:06 | XMS REPORT | Continuity of Care Document ---
:1945 Author Organization [facility] t Address [address] [place] [address] Care Team Providers Name Role Phone Provider, Urgent Care Attending Clinician Unavailable Lab, Fam Pob I Attending Clinician Unavailable Anene MANAGER DECISION SUPPORT Attending Clinician ANENE Attending Clinician Unavailable Doctor Unassigned, Name Attending Clinician Unavailable Payers Payer Name Policy Type Policy Number Effective Date Expiration Date S ource Problems This patient has no known problems. Allergies, Adverse Reactions, Alerts Allergy Allergy Status Severity Reaction(s) Onset Inactive Treating Comm ents Source Name Type Date Date Clinician NO KNOWN Drug Active Univers ALLERGIE Class ity of [facility] Social History Social Habit Start Date Stop Date Quantity Comments Source Exposure to Yes [facility] SARS-CoV-2 [facility] (event) Branch Sex Assigned At [facility]it [facility] of [facility] Tobacco use and 2017-11-26 2017-11-26 Never used Universit y of exposure 00:00:00 00:00:00 [facility] Alcohol intake 2017-11-26 2017-11-26 Current University 00:00:00 00:00:00 non-drinker of [facility] alcohol Branch (finding) Smoking Status Start Date Stop Date Source Current some day smoker 2017-11-26 00:00:00 [facility] Medications Ordered Filled Start Stop Current Ordering Indication Dosage Frequency Signature Comments Components Source Medication Medication Date Date Medication? Clinician (SIG) Name Name glimepiride Yes 1mg Take 1 mg U nivers 1 mg tablet 1-24 by mouth 2 it y of 16:31: (two) [place] 35 times Medical daily. Branch atorvastati 0 Yes 20mg Take 20 mg Univers n 20 mg 1-24 by mouth ity of tablet 16:31: at [place] [address] bedtime. Medical Branch clopidogrel 0 Yes 75mg Take 75 mg Univers 75 mg 1-24 by mouth ity of tablet 16:31: daily. [place] [address] Medical Branch carvedilol 0 Yes 12.5mg Take 12.5 Univers 12.5 mg 1-24 mg by ity of tablet 16:31: mouth 2 [place] [address] (two) Medical times [place] daily with meals. levothyroxi 0 Yes 25ug Take 25 Uni vers ne 25 mcg 1-24 mcg by ity of tablet 16:31: mouth [place] [address] every Medical morning. Branch aspirin 81 0 Yes 81mg Take 81 mg U nivers mg EC 1-24 by mouth ity of tablet 16:31: daily. [place] [address] Medical Branch valsartan 0 Yes 40mg Take 40 mg Un nishant 40 mg 1-24 by mouth ity of tablet 16:31: daily. [place] [address] Medical Branch vitamin 2017-0 Yes 1000ug Take 1,000 Un nishant B-12 1-24 mcg by ity of (VITAMIN 16:31: mouth [place] B-12) 1,000 35 daily. Medica l mcg tablet Branch glimepiride 0 Yes 1mg Take 1 mg U nivers 1 mg tablet 1-24 by mouth 2 it y of 16:31: (two) [place] [address] times Medical daily. Branch atorvastati Yes 20mg Take 20 mg Univers n 20 mg 1-24 by mouth ity of tablet 16:31: at [place] [address] bedtime. Medical Branch clopidogrel 0 Yes 75mg Take 75 mg Univers 75 mg 1-24 by mouth ity of tablet 16:31: daily. [place] [address] Medical Branch carvedilol 0 Yes 12.5mg Take 12.5 Univers 12.5 mg 1-24 mg by ity of tablet 16:31: mouth 2 [place] [address] (two) Medical times [place] daily with meals. levothyroxi 0 Yes 25ug Take 25 Uni vers ne 25 mcg 1-24 mcg by ity of tablet 16:31: mouth [place] 35 every Medical morning. Branch aspirin 81 0 Yes 81mg Take 81 mg U nivers mg EC 1-24 by mouth ity of tablet 16:31: daily. [place] [address] Medical Branch valsartan 2017-0 Yes 40mg Take 40 mg Un nisahnt 40 mg 1-24 by mouth ity of tablet 16:31: daily. [address] Branch vitamin 2018-0 Yes 1000ug Take 1,000 Un nishant B-12 1-24 mcg by ity of (VITAMIN 16:31: mouth [place] B-12) 1,000 35 daily. Medica l mcg tablet Branch glimepiride 0 Yes 1mg Take 1 mg U nivers 1 mg tablet 1-24 by mouth 2 it y of 16:31: (two) [place] 35 times Medical daily. Branch atorvastati 0 Yes 20mg Take 20 mg Univers n 20 mg 1-24 by mouth ity of tablet 16:31: at [place] [address] bedtime. Medical Branch clopidogrel Yes 75mg Take 75 mg Univers 75 mg 1-24 by mouth ity of tablet 16:31: daily. [place] [address] Medical Branch carvedilol 0 Yes 12.5mg Take 12.5 Univers 12.5 mg 1-24 mg by ity of tablet 16:31: mouth 2 [place] [address] (two) Medical times Branch daily with meals. levothyroxi 0 Yes 25ug Take 25 Uni vers ne 25 mcg 1-24 mcg by ity of tablet 16:31: mouth [place] [address] every Medical morning. Branch aspirin 81 0 Yes 81mg Take 81 mg U nivers mg EC 1-24 by mouth ity of tablet 16:31: daily. [place] [address] Medical Branch valsartan 0 Yes 40mg Take 40 mg Un nishant 40 mg 1-24 by mouth ity of tablet 16:31: daily. [place] [address] Medical Branch vitamin 2017-0 Yes 1000ug Take 1,000 Un nishant B-12 1-24 mcg by ity of (VITAMIN 16:31: mouth [place] B-12) 1,000 35 daily. Medica l mcg tablet Branch glimepiride 0 Yes 1mg Take 1 mg U nivers 1 mg tablet 1-24 by mouth 2 it y of 16:31: (two) [place] 35 times Medical daily. Branch atorvastati 0 Yes 20mg Take 20 mg Univers n 20 mg 1-24 by mouth ity of tablet 16:31: at [place] [address] bedtime. Medical Branch clopidogrel 2018-0 Yes 75mg Take 75 mg Univers 75 mg 1-24 by mouth ity of tablet 16:31: daily. [address] carvedilol 2017-0 Yes 12.5mg Take 12.5 Univers 12.5 mg 1-24 mg by ity of tablet 16:31: mouth 2 [place] [address] (two) Medical times Branch daily with meals. levothyroxi 2017-0 Yes 25ug Take 25 Uni vers ne 25 mcg 1-24 mcg by ity of tablet 16:31: mouth [place] [address] every Medical morning. Branch aspirin 81 2018-0 Yes 81mg Take 81 mg U nivers mg EC 1-24 by mouth ity of tablet 16:31: daily. [address] valsartan Yes 40mg Take 40 mg Un nishant 40 mg 1-24 by mouth ity of tablet 16:31: daily. [address] vitamin 2017- Yes 1000ug Take 1,000 Un nishant B-12 1-24 mcg by ity of (VITAMIN 16:31: mouth [place] B-12) 1,000 35 daily. Medica l mcg tablet Branch Procedures This patient has no known procedures. Encounters Start End Encounter Admission Attending Care Care Encounter Source Date/Time Date/Time Type Type Clinicians Facility Department ID 2020-09-17 2020-09-17 Telephone Provider, [facility] [id number] 00:00:00 00:00:00 [facility] [id number] [facility] [place] [id number] Professio [phone] [place] [address] [address] 2020-09-17 2020-09-17 Telephone Provider, [facility] [id number] Univers 00:00:00 00:00:00 [facility] [id number] ity of Care [place] [id number] Patrick as Professio [phone] Mn dical [address] Office [address] 2020-09-16 2020-09-16 Laboratory Lab, Adc Fam Pob I [facility] [id number] Univers 13:20:22 13:28:58 Only Jason, [facility] [id number] ity of [place] [id number] Patrick as Professio [phone] Mn dical [facility] [address] 2020-09-16 2020-09-16 Laboratory Lab, [facility] [id number] 13:20:22 13:28:58 Only Fam Pob I Health [id number] [place] [id number] Professio [phone] nal [facility] Office [address] 2020-09-16 2020-09-16 Outpatient Shaji MARINO, [facility] [id number] Univers 13:20:00 13:20:00 KT [facility] 2020-09-16 2020-09-16 Letter Doctor DINA [id number] Univers 00:00:00 00:00:00 (Out) Unassigned, MEREDITH [id number] ity of [place] [facility] [id number] Patrick as [phone] [place] [address] Branch Results This patient has no known results.
[2021-11-10] MEDS ORDERED: KETOROLAC 30 MG/ML INJ ONE (22:39)
[2021-11-10] MEDS ORDERED: LIDOCAINE 4% PATCH ONE (22:39)
--- NOTE | 2021-11-10 22:59 | ER ---
Nurse's Notes [facility] Name: Neris Nevarez Age: 76 yrs Sex: Female : 1945 Arrival Date: 11/10/2021 Time: 17:06 Bed 12 Private MD: Diagnosis: Pain in right hip Presentation: 11/10 17:24 Chief complaint: Patient states: R hip pain continues since her last visit here for the ll1 same. Dr. Lima gave her a cortisone shot that didn't help No new trauma or falls. Coronavirus screen: Vaccine status: Patient reports being unvaccinated. Client denies travel out of the [place] in the last 14 days. At this time, the client does not indicate any symptoms associated with coronavirus-19. Ebola Screen: Patient denies travel to an Ebola-affected area in the 21 days before illness onset. Initial Sepsis Screen: Does the patient meet any 2 criteria? No. Patient's initial sepsis screen is negative. Does the patient have a suspected source of infection? Yes: Bone or joint infection. Risk Assessment: Do you want to hurt yourself or someone else? Patient reports no desire to harm self or others. Onset of symptoms was October 10, 2021. 17:24 Method Of Arrival: Ambulatory 1 17:24 Acuity: YOLIE 4 ll1 Triage Assessment: 17:26 General: Appears uncomfortable, Behavior is calm, cooperative, appropriate for age. ll1 Pain: Complains of pain in R hip. Musculoskeletal: Reports pain in R hip. Historical: - Allergies: 17:25 No Known Allergies; ll1 - PMHx: 17:25 Cancer, Breast; Diabetes - NIDDM; DVT; Hypertensive disorder; Hypothyroidism; ll1 - PSHx: 17:25 GALLBLADDER; section; mastectomy; ll1 - Immunization history:: Client reports having NOT received the Covid vaccine. - Social history:: Smoking status: Patient denies any tobacco usage or history of. Screenin:30 Abuse screen: Denies threats or abuse. Nutritional screening: No deficits noted. bb Tuberculosis screening: No symptoms or risk factors identified. Fall Risk None identified. Assessment: 21:30 General: Appears in no apparent distress. Behavior is calm, cooperative. Pain: bb Complains of pain in right hip. Neuro: Level of Consciousness is awake, alert, obeys commands, Oriented to person, place, time, situation. Cardiovascular: Capillary refill < 3 seconds Patient's skin is warm and dry. Respiratory: Respiratory effort is even, unlabored. GI: No signs and/or symptoms were reported involving the gastrointestinal system. Derm: Skin is pink, warm \T\ dry. Musculoskeletal: Circulation, motion, and sensation intact. Reports pain in right hip. 23:37 Reassessment: Patient is alert, oriented x 3, equal unlabored respirations, skin bb warm/dry/pink. pt verbalized understanding of and agrees to plan of care discharge instructions given pt ambulated with steady gait to exit accompanied by spouse Patient states feeling better. Vital Signs: 17:24 BP 170 / 56; Pulse 69; Resp 17; Temp 97.6; Pulse Ox 100% ; Weight 49.44 kg; Height 4 ll1 ft. 10 in. (147.32 cm); Pain 5/10; 23:27 BP 169 / 53; Pulse 68; Resp 18; Pulse Ox 100% on R/A; oe 17:24 Body Mass Index 22.78 (49.44 kg, 147.32 cm) ll1 ED Course: 17:06 Patient arrived in ED. ds1 17:25 Triage completed. ll1 17:25 Arm band placed on. ll1 21:12 Luis Carvalho NP is PHCP. pm1 21:12 Henrique Nieves MD is Attending Physician. pm1 21:29 Enid Doss RN is Primary Nurse. bb 21:30 Patient has correct armband on for positive identification. Adult w/ patient. bb 23:37 No provider procedures requiring assistance completed. Patient did not have IV access bb during this emergency room visit. Administered Medications: 22:43 Drug: Ketorolac 15 mg Route: IM; Site: right gluteus; bb 23:39 Follow up: Response: No adverse reaction; Pain is decreased bb 22:43 Drug: Lidoderm Patch 5 % (700 mg/patch) 1 patches Route: Topical; Site: affected area; bb 23:39 Follow up: Response: No adverse reaction; Pain is decreased bb Outcome: 22:59 Discharge ordered by . pm1 23:37 Discharged to home ambulatory, with family. bb 23:37 Condition: stable 23:37 Discharge instructions given to patient, Instructed on discharge instructions, follow up and referral plans. medication usage, Demonstrated understanding of instructions, follow-up care, medications, Prescriptions given X 2. 23:39 Patient left the ED. bb Signatures: Pennie Blake ds1 Enid Doss RN RN bb Luis Carvalho, ABDIRAHMAN ALTERATION SPECIALIST pm1 Adam Melgar Lynsay RN RN ll1
--- NOTE | 2021-11-10 23:00 | EDPHYS ---
Physician Documentation [facility] Name: Neris Nevarez Age: 76 yrs Sex: Female : 1945 Arrival Date: 11/10/2021 Time: 17:06 Bed 12 Private MD: ED Physician Henrique Nieves HPI: 11/10 21:39 This 76 yrs old Female presents to ER via Ambulatory with complaints of Hip pm1 Pain. 21:39 The patient or guardian reports pain. sustained from unknown reason. The complaints pm1 affect the right hip. 21:39 Onset: The symptoms/episode began/occurred 1 month(s) ago. Modifying factors: The pm1 symptoms are alleviated by tramadol. Associated signs and symptoms: Pertinent negatives: swelling, numbness, tingling. Severity of symptoms: in the emergency department the symptoms are unchanged. The patient has not recently seen a physician, Has not been able to see orthopedic for a new primary care physician due to insurance changes. No injury or trauma since last seen in the ER on October 20 for the same complaint. Historical: - Allergies: 17:25 No Known Allergies; ll1 - PMHx: 17:25 Cancer, Breast; Diabetes - NIDDM; DVT; Hypertensive disorder; Hypothyroidism; ll1 - PSHx: 17:25 GALLBLADDER; section; mastectomy; ll1 - Immunization history:: Client reports having NOT received the Covid vaccine. - Social history:: Smoking status: Patient denies any tobacco usage or history of. ROS: 21:39 Constitutional: Negative for fever, chills, and weight loss, Cardiovascular: Negative pm1 for chest pain, palpitations, and edema, Respiratory: Negative for shortness of breath, cough, wheezing, and pleuritic chest pain. 21:39 Abdomen/GI: Negative for abdominal pain, nausea, vomiting, diarrhea, and constipation, Skin: Negative for injury, rash, and discoloration, Neuro: Negative for headache, weakness, numbness, tingling, and seizure. 21:39 MS/extremity: Positive for pain, of the right hip, Negative for injury or acute deformity, decreased range of motion, deformity. 21:39 All other systems are negative. Exam: 21:39 Constitutional: This is a well developed, well nourished patient who is awake, alert, pm1 and in no acute distress. Head/Face: Normocephalic, atraumatic. 21:39 Back: No spinal tenderness. No costovertebral tenderness. Full range of motion. Skin: Warm, dry with normal turgor. Normal color with no rashes, no lesions, and no evidence of cellulitis. 21:39 Cardiovascular: Exam negative for acute changes, Rate: normal, Rhythm: regular, Pulses: no pulse deficits are appreciated. 21:39 Respiratory: Exam negative for acute changes, respiratory distress, shortness of breath. 21:39 Musculoskeletal/extremity: Extremities: grossly normal except: noted in the lateral aspect of right gluteus mir: tenderness, There is no evidence of decreased ROM, deformity. 21:39 Neuro: Exam negative for acute changes, Orientation: is normal, Mentation: is normal, Motor: is normal, moves all fours. Vital Signs: 17:24 BP 170 / 56; Pulse 69; Resp 17; Temp 97.6; Pulse Ox 100% ; Weight 49.44 kg; Height 4 ll1 ft. 10 in. (147.32 cm); Pain 5/10; 23:27 BP 169 / 53; Pulse 68; Resp 18; Pulse Ox 100% on R/A; oe 17:24 Body Mass Index 22.78 (49.44 kg, 147.32 cm) ll1 MDM: 21:26 Patient medically screened. pm1 21:37 Data reviewed: vital signs. Data interpreted: Pulse oximetry: on room air is 100 %. pm1 Interpretation: normal. 21:39 ED course: Offered right hip X-ray to the patient. Patient refused. No trauma or injury pm1 since last imaging on 10/20/2021. Patient presenting here for right hip pain looking for assistance with getting a referral to orthopedics because her new insurance company gave her a PCP that is not accepting new patient . 22:58 Counseling: I had a detailed discussion with the patient and/or guardian regarding: the pm1 historical points, exam findings, and any diagnostic results supporting the discharge/admit diagnosis, the need for outpatient follow up, for definitive care, a orthopedic surgeon, to return to the emergency department if symptoms worsen or persist or if there are any questions or concerns that arise at home. Administered Medications: 22:43 Drug: Ketorolac 15 mg Route: IM; Site: right gluteus; bb 23:39 Follow up: Response: No adverse reaction; Pain is decreased bb 22:43 Drug: Lidoderm Patch 5 % (700 mg/patch) 1 patches Route: Topical; Site: affected area; bb 23:39 Follow up: Response: No adverse reaction; Pain is decreased bb Disposition: 11/11 12:19 Co-signature as Attending Physician, Henrique Nieves MD I agree with the assessment and willa plan of care. Disposition Summary: 11/10/21 22:59 Discharge Ordered Location: Home pm1 Problem: new pm1 Symptoms: have improved pm1 Condition: Stable pm1 Diagnosis - Pain in right hip pm1 Followup: pm1 - With: Emergency Department - When: As needed - Reason: Worsening of condition Followup: pm1 - With: Private Physician - When: 2 - 3 days - Reason: Recheck today's complaints, Continuance of care, Re-evaluation by your physician Discharge Instructions: - Discharge Summary Sheet pm1 - Joint Pain pm1 - Musculoskeletal Pain pm1 Forms: - Medication Reconciliation Form pm1 - Thank You Letter pm1 - Antibiotic Education pm1 - Prescription Opioid Use pm1 Prescriptions: - Lidoderm 5 % Topical adhesive patch,medicated - apply 1 patch by TRANSDERMAL route once daily As needed 12 hours on and 12 pm1 hours off in a 24 hour period; 10 patch; Refills: 0, Product Selection Permitted - Mobic 7.5 mg Oral Tablet - take 1 tablet by ORAL route once daily take with food; 20 tablet; Refills: 0, pm1 Product Selection Permitted Signatures: Henrique Nieves MD MD cha Ballard, Brenda, RN RN bb Luis Carvalho, ABDIRAHMAN METAL MOLDER pm1 Willis Adames RN RN ll1
[2021-11-10 23:50] VITALS: TEMP 97.6; O2SAT 100
[2021-11-10 23:52] VITALS: BP 169/53
== END 2021-11-10 23:39 | disposition home or self-care (01) ==
LOC: ER 17:03
DX: M25.551 Pain in right hip (principal); E11.9 Type 2 diabetes mellitus without complications; I10 Essential (primary) hypertension; E03.9 Hypothyroidism, unspecified; Z85.3 Personal history of malignant neoplasm of breast
CPT/HCPCS: 96372; 99283

== ENCOUNTER 2021-12-25 10:35 | Emergency (ER) | payer OTHER ==
--- OUTSIDE RECORDS SUMMARY | 2021-12-25 10:37 | XMS REPORT | Continuity of Care Document ---
:1945 Author Organization [facility] t Address [address] [place] [address] Care Team Providers Name Role Phone Provider, Urgent Care Attending Clinician Unavailable Lab, Fam Pob I Attending Clinician Unavailable Anene MANAGER CONTROL Attending Clinician ANENE Attending Clinician Unavailable Doctor Unassigned, Name Attending Clinician Unavailable Payers Payer Name Policy Type Policy Number Effective Date Expiration Date S ource Problems This patient has no known problems. Allergies, Adverse Reactions, Alerts Allergy Allergy Status Severity Reaction(s) Onset Inactive Treating Comm ents Source Name Type Date Date Clinician NO KNOWN Drug Active Univers ALLERGIE Class ity of S [facility] Social History Social Habit Start Date Stop Date Quantity Comments Source Exposure to Yes [facility] SARS-CoV-2 [facility] (event) Branch Sex Assigned At Universit y of [facility] Tobacco use and 2017-11-26 2017-11-26 Never used Universit y of exposure 00:00:00 00:00:00 [facility] Alcohol intake 2017-11-26 2017-11-26 Current University 00:00:00 00:00:00 non-drinker of [facility] alcohol [place] (finding) Smoking Status Start Date Stop Date Source Current some day smoker 2017-11-26 00:00:00 [facility] Medications Ordered Filled Start Stop Current Ordering Indication Dosage Frequency Signature Comments Components Source Medication Medication Date Date Medication? Clinician (SIG) Name Name glimepiride 2018- Yes 1mg Take 1 mg U nivers 1 mg tablet 1-24 by mouth 2 it y of 16:31: (two) [place] 35 times Medical daily. Branch atorvastati 0 Yes 20mg Take 20 mg Univers n 20 mg 1-24 by mouth ity of tablet 16:31: at [place] [address] bedtime. Medical Branch clopidogrel 0 Yes 75mg Take 75 mg Univers 75 mg 1-24 by mouth ity of tablet 16:31: daily. [place] [address] Medical Branch carvedilol 0 Yes 12.5mg Take 12.5 Univers 12.5 mg 1-24 mg by ity of tablet 16:31: mouth 2 [place] [address] (two) Medical times [place] daily with meals. levothyroxi 0 Yes 25ug Take 25 Uni vers ne 25 mcg 1-24 mcg by ity of tablet 16:31: mouth [place] [address] every Medical morning. Branch aspirin 81 0 Yes 81mg Take 81 mg U nivers mg EC 1-24 by mouth ity of tablet 16:31: daily. [place] [address] Medical Branch valsartan 0 Yes 40mg Take 40 mg Un nishant 40 mg 1-24 by mouth ity of tablet 16:31: daily. [place] [address] Medical Branch vitamin 2017-0 Yes 1000ug Take 1,000 Un nishant B-12 1-24 mcg by ity of (VITAMIN 16:31: mouth [place] B-12) 1,000 35 daily. Medica l mcg tablet Branch glimepiride 0 Yes 1mg Take 1 mg U nivers 1 mg tablet 1-24 by mouth 2 it y of 16:31: (two) [place] [address] times Medical daily. Branch atorvastati Yes 20mg Take 20 mg Univers n 20 mg 1-24 by mouth ity of tablet 16:31: at [place] [address] bedtime. Medical Branch clopidogrel 0 Yes 75mg Take 75 mg Univers 75 mg 1-24 by mouth ity of tablet 16:31: daily. [place] [address] Medical Branch carvedilol 0 Yes 12.5mg Take 12.5 Univers 12.5 mg 1-24 mg by ity of tablet 16:31: mouth 2 [place] [address] (two) Medical times [place] daily with meals. levothyroxi 2017-0 Yes 25ug Take 25 Uni vers ne 25 mcg 1-24 mcg by ity of tablet 16:31: mouth [place] 35 every Medical morning. Branch aspirin 81 0 Yes 81mg Take 81 mg U nivers mg EC 1-24 by mouth ity of tablet 16:31: daily. [place] [address] Medical Branch valsartan 2017-0 Yes 40mg Take 40 mg Un nishant 40 mg 1-24 by mouth ity of tablet 16:31: daily. [address] Branch vitamin 2018-0 Yes 1000ug Take 1,000 Un nishant B-12 1-24 mcg by ity of (VITAMIN 16:31: mouth [place] B-12) 1,000 35 daily. Medica l mcg tablet Branch glimepiride 0 Yes 1mg Take 1 mg U nivers 1 mg tablet 1-24 by mouth 2 it y of 16:31: (two) [place] 35 times Medical daily. Branch atorvastati 0 Yes 20mg Take 20 mg Univers n 20 mg 1-24 by mouth ity of tablet 16:31: at [place] [address] bedtime. Medical Branch clopidogrel 0 Yes 75mg Take 75 mg Univers 75 mg 1-24 by mouth ity of tablet 16:31: daily. [place] [address] Medical Branch carvedilol 0 Yes 12.5mg Take 12.5 Univers 12.5 mg 1-24 mg by ity of tablet 16:31: mouth 2 [place] [address] (two) Medical times Branch daily with meals. levothyroxi 0 Yes 25ug Take 25 Uni vers ne 25 mcg 1-24 mcg by ity of tablet 16:31: mouth [place] 35 every Medical morning. Branch aspirin 81 0 Yes 81mg Take 81 mg U nivers mg EC 1-24 by mouth ity of tablet 16:31: daily. [place] [address] Medical Branch valsartan 0 Yes 40mg Take 40 mg Un nishant 40 mg 1-24 by mouth ity of tablet 16:31: daily. [place] [address] Medical Branch vitamin 2018-0 Yes 1000ug Take 1,000 Un nishant B-12 1-24 mcg by ity of (VITAMIN 16:31: mouth [place] B-12) 1,000 35 daily. Medica l mcg tablet Branch glimepiride 0 Yes 1mg Take 1 mg U nivers 1 mg tablet 1-24 by mouth 2 it y of 16:31: (two) [place] 35 times Medical daily. Branch atorvastati 0 Yes 20mg Take 20 mg Univers n 20 mg 1-24 by mouth ity of tablet 16:31: at [place] [address] bedtime. Medical Branch clopidogrel 2018-0 Yes 75mg Take 75 mg Univers 75 mg 1-24 by mouth ity of tablet 16:31: daily. [address] carvedilol 2017- Yes 12.5mg Take 12.5 Univers 12.5 mg 1-24 mg by ity of tablet 16:31: mouth 2 [place] [address] (two) Medical times Branch daily with meals. levothyroxi 2017- Yes 25ug Take 25 Uni vers ne 25 mcg 1-24 mcg by ity of tablet 16:31: mouth [place] [address] every Medical morning. Branch aspirin 81 2018-0 Yes 81mg Take 81 mg U nivers mg EC 1-24 by mouth ity of tablet 16:31: daily. [address] valsartan Yes 40mg Take 40 mg Un nishant 40 mg 1-24 by mouth ity of tablet 16:31: daily. [address] vitamin 2017-0 Yes 1000ug Take 1,000 Un nishant B-12 1-24 mcg by ity of (VITAMIN 16:31: mouth [place] B-12) 1,000 35 daily. Medica l mcg tablet Branch Procedures This patient has no known procedures. Encounters Start End Encounter Admission Attending Care Care Encounter Source Date/Time Date/Time Type Type Clinicians Facility Department ID 2021-12-16 [id number] 14:14:03 [facility] 2020-09-17 2020-09-17 Telephone Provider, [facility] [id number] Univers 00:00:00 00:00:00 [facility] [id number] ity of Care [place] [id number] Patrick as Professio [phone] Ga dical [address] Office [address] One 2020-09-17 2020-09-17 Telephone Provider, [facility] [id number] 00:00:00 00:00:00 [facility] [id number] Care [place] [id number] Professio [phone] nal [facility] Office [address] 2020-09-16 2020-09-16 Laboratory Lab, Adc Fam Pob I [facility] [id number] Univers 13:20:22 13:28:58 Only Anene, Kt Ish [id number] ity of [place] [id number] Patrick as Professio [phone] Ga dical [place] [address] Branch [address] 2020-09-16 2020-09-16 Laboratory Lab, [facility] [id number] 13:20:22 13:28:58 Only Fam Pob I Health [id number] [place] [id number] Professio [phone] [place] [address] Office [address] 2020-09-16 2020-09-16 Outpatient R NED [facility] [id number] Univers 13:20:00 13:20:00 KT solorio of [facility] 2020-09-16 2020-09-16 Letter Doctor DINA [id number] 00:00:00 00:00:00 (Out) Unassigned, MEREDITH [id number] ity of [place] [facility] [id number] Patrick as [phone] [address] Results This patient has no known results.
[2021-12-25] MEDS ORDERED: MORPHINE 4 MG/ML SYR ONE (12:13)
[2021-12-25] MEDS ORDERED: ONDANSETRON 4 MG (ODT) TAB ONE (12:13)
--- NOTE | 2021-12-25 13:26 | EDPHYS ---
Physician Documentation [facility] Name: Neris Nevarez Age: 76 yrs Sex: Female : 1945 Arrival Date: 12/25/2021 Time: 10:35 Bed 15 Private MD: ED Physician Loi Marin HPI: 12/25 12:00 This 76 yrs old Female presents to ER via Ambulatory with complaints of Hip jmm Pain. 12:00 The patient or guardian reports pain. Onset: The symptoms/episode began/occurred jmm gradually, 3 month(s) ago. Modifying factors: The symptoms are alleviated by nothing, the symptoms are aggravated by nothing. Associated signs and symptoms: Pertinent negatives: fever, shortness of breath. This is a 76-year-old female with history of breast cancer, diabetes mellitus, hypertension the presents emerged department with complaints of right leg pain. Patient states she was initially evaluated by cardiology to rule out a DVT and then sent to orthopedic surgery for further evaluation. Patient was diagnosed with radicular pain in the right leg. states that the patient has run out of pain medication and her orthopedic doctor will not refill prescription and advised her to see a pain management doctor.. Historical: - Allergies: 11:06 No Known Allergies; tw2 - Home Meds: 11:06 levothyroxine 200 mcg oral cap [Active]; losartan oral [Active]; glimepiride 1 mg Oral tw2 tab 1 tab once daily [Active]; carvedilol 12.5 mg oral tab 1 tab 2 times per day [Active]; atorvastatin 20 mg oral tab 1 tab once daily [Active]; clopidogrel 75 mg oral tab 1 tab once daily [Active]; aspirin 81 mg Oral TbEC 1 tab once daily [Active]; - PMHx: 11:06 Cancer, Breast; Diabetes - NIDDM; DVT; Hypertensive disorder; Hypothyroidism; tw2 - PSHx: 11:06 section; GALLBLADDER; mastectomy; tw2 - Immunization history:: Client reports having NOT received the Covid vaccine. Flu vaccine is not up to date. - Social history:: Smoking status: Patient denies any tobacco usage or history of. ROS: 12:00 Constitutional: Negative for fever, chills, and weight loss, Cardiovascular: Negative jmm for chest pain, palpitations, and edema, Respiratory: Negative for shortness of breath, cough, wheezing, and pleuritic chest pain. 12:00 MS/extremity: Positive for pain. 12:00 All other systems are negative. Exam: 12:00 Constitutional: This is a well developed, well nourished patient who is awake, alert, jmm and in no acute distress. Head/Face: atraumatic. Eyes: EOMI, no conjunctival erythema appreciated ENT: Moist Mucus Membranes Neck: Trachea midline, Supple Chest/axilla: Normal chest wall appearance and motion. Cardiovascular: Regular rate and rhythm. No edema appreciated Respiratory: Normal respirations, no respiratory distress appreciated Abdomen/GI: Non distended, soft Back: Normal ROM Skin: General appearance color normal 12:00 Musculoskeletal/extremity: ROM: intact in all extremities, No pain on range of motion of the right leg the right hip joint, orbits are soft throughout the leg, full range of motion appreciated to the right knee without pain, no swelling or edema appreciated to the lower leg, full dorsalis pedis pulse appreciated, neurovascular intact. 12:00 Skin: Appearance: Color: normal in color. 12:00 Neuro: Orientation: is normal, Mentation: is normal, Memory: is normal. 12:00 Psych: Behavior/mood is pleasant, cooperative. Vital Signs: 11:02 BP 114 / 76; Pulse 55; Resp 17; Temp 98.4(TE); Pulse Ox 97% on R/A; Weight 48.08 kg tw2 (R); Pain 10/10; 13:42 BP 116 / 58; Pulse 60; Resp 17; Pulse Ox 98% ; Pain 2/10; jh6 MDM: 12:00 Patient medically screened. [facility] 13:25 Data reviewed: vital signs, nurses notes. Counseling: I had a detailed discussion with nate the patient and/or guardian regarding: the historical points, exam findings, and any diagnostic results supporting the discharge/admit diagnosis, the need for outpatient follow up, to return to the emergency department if symptoms worsen or persist or if there are any questions or concerns that arise at home. 15:56 ED course: Patient is alert nontoxic appearance in the ED. Pain relieved in the ER. [facility] Patient is neurovascular tact of the right leg, I do not currently suspect DVT. Patient advised to follow-up with pain management/orthopedics and otherwise given strict return precautions. Patient understood agrees plan of care.. Administered Medications: 12:13 Drug: morphine 4 mg Route: IM; Site: left deltoid; cb5 13:35 Follow up: Response: Pain is decreased [facility] 12:13 Drug: Ondansetron 4 mg Route: PO; cb5 13:35 Follow up: Response: No adverse reaction [facility] Disposition: 17:40 Co-signature as Attending Physician, Loi Marin MD I agree with the assessment and kdr plan of care. Disposition Summary: 12/25/21 13:25 Discharge Ordered Location: Home [facility] Condition: Stable [facility] Diagnosis - Radicular Pain [facility] Followup: [facility] - With: Timbo Calvert MD - When: 2 - 3 days - Reason: Recheck today's complaints, Continuance of care, Re-evaluation by your physician Discharge Instructions: - Discharge Summary Sheet [facility] - Radicular Pain [facility] Forms: - Medication Reconciliation Form [facility] - Thank You Letter [facility] - Antibiotic Education [facility] - Prescription Opioid Use [facility] Prescriptions: - gabapentin 100 mg Oral capsule - take 1 capsule by ORAL route 3 times per day; 30 capsule; Refills: 0, Product [facility] Selection Permitted - Tramadol 50 mg Oral Tablet - take 1 tablet by ORAL route every 8 hours as needed; 12 tablet; Refills: 0, [facility] Product Selection Permitted - orphenadrine citrate 100 mg Oral Tablet Sustained Release - take 1 tablet by ORAL route 2 times per day As needed; 20 tablet; Refills: 0, [facility] Product Selection Permitted Signatures: Lio Marin MD MD kdr Mickail, Joel, PA PA [facility] Mae Corbett RN RN 2 Taryn Rodriguez RN RN 5 Joan Leblanc RN 6 Corrections: (The following items were deleted from the chart) 11:11 11:06 Home Meds: "let me see if i can find my list"; tw2 tw2
--- NOTE | 2021-12-25 13:26 | ER ---
Nurse's Notes [facility] Name: Neris Nevarez Age: 76 yrs Sex: Female : 1945 Arrival Date: 12/25/2021 Time: 10:35 Bed 15 Private MD: Diagnosis: Radicular Pain Presentation: 12/25 11:02 Chief complaint: Spouse and/or significant other states: she keeps a bad pain in her tw2 RIGHT hip. we saw an orthopedics and he told her that she has got some ligaments that are inflamed. he gave her some pain pills and inflammatories. we wont see him again until Wednesday and she is out of the pain medicine and she just cant wait. we called the dr to see if he would prescribe the pills but he wasn't in so they told us to come here. she was taking Tramadol 50 mg 1 tab every 6 hours as needed for pain. Dr. Calvert. Coronavirus screen: At this time, the client does not indicate any symptoms associated with coronavirus-19. Ebola Screen: Patient denies travel to an Ebola-affected area in the 21 days before illness onset. Initial Sepsis Screen: Does the patient meet any 2 criteria? No. Patient's initial sepsis screen is negative. Does the patient have a suspected source of infection? No. Patient's initial sepsis screen is negative. Risk Assessment: Do you want to hurt yourself or someone else? Patient reports no desire to harm self or others. Onset of symptoms was December 25, 2021. 11:02 Method Of Arrival: Ambulatory tw2 11:02 Acuity: YOLIE 3 tw2 Triage Assessment: 11:11 General: Appears in no apparent distress. uncomfortable, slender, well groomed, tw2 Behavior is calm, cooperative, appropriate for age. Pain: Complains of pain in RIGHT hip. Musculoskeletal: Range of motion: intact in all extremities. Historical: - Allergies: 11: No Known Allergies; tw2 - Home Meds: 11:06 levothyroxine 200 mcg oral cap [Active]; losartan oral [Active]; glimepiride 1 mg Oral tw2 tab 1 tab once daily [Active]; carvedilol 12.5 mg oral tab 1 tab 2 times per day [Active]; atorvastatin 20 mg oral tab 1 tab once daily [Active]; clopidogrel 75 mg oral tab 1 tab once daily [Active]; aspirin 81 mg Oral TbEC 1 tab once daily [Active]; - PMHx: 11:06 Cancer, Breast; Diabetes - NIDDM; DVT; Hypertensive disorder; Hypothyroidism; tw2 - PSHx: 11:06 section; GALLBLADDER; mastectomy; tw2 - Immunization history:: Client reports having NOT received the Covid vaccine. Flu vaccine is not up to date. - Social history:: Smoking status: Patient denies any tobacco usage or history of. Screenin:23 Abuse screen: Denies threats or abuse. Denies injuries from another. Nutritional cb5 screening: No deficits noted. Tuberculosis screening: No symptoms or risk factors identified. Fall Risk None identified. Assessment: 11:21 General: Appears uncomfortable, Behavior is calm, cooperative. Pain: Complains of pain cb5 in back of right leg and right hip Pain currently is 6 out of 10 on a pain scale. Neuro: No deficits noted. Level of Consciousness is awake, alert, obeys commands, Oriented to person, place, time, situation. Cardiovascular: No deficits noted. Respiratory: No deficits noted. GI: No deficits noted. : No deficits noted. EENT: No deficits noted. Derm: Skin is fragile, with poor turgor. Musculoskeletal: Reports pain in right leg and hip, M.D not available until wednesday and needs pain medication. Was sent to ER by M.D office. 13:43 Reassessment: Patient is alert, oriented x 3, equal unlabored respirations, skin jh6 warm/dry/pink. Patient states feeling better. states not feeling the pain as much and is able to stand and get off of bed and walk to wheelchair without assistance. states pain meds mad her little sleepy and doesn't this she could walk to the car.. Vital Signs: 11:02 BP 114 / 76; Pulse 55; Resp 17; Temp 98.4(TE); Pulse Ox 97% on R/A; Weight 48.08 kg tw2 (R); Pain 10/10; 13:42 BP 116 / 58; Pulse 60; Resp 17; Pulse Ox 98% ; Pain 2/10; jh6 ED Course: 10:35 Patient arrived in ED. am2 11:06 Triage completed. tw2 11:11 Arm band placed on. tw2 11:19 Taryn Rodriguez, RN is Primary Nurse. cb5 11:23 Patient has correct armband on for positive identification. Call light in reach. Side cb5 rails up X 1. 11:29 Brent Nogueira PA is PHCP. [facility] 11:29 Loi Marin MD is Attending Physician. [facility] 13:25 Timbo Calvert MD is Referral Physician. [facility] Administered Medications: 12:13 Drug: morphine 4 mg Route: IM; Site: left deltoid; 5 13:35 Follow up: Response: Pain is decreased [facility] 12:13 Drug: Ondansetron 4 mg Route: PO; cb5 13:35 Follow up: Response: No adverse reaction [facility] Outcome: 13:25 Discharge ordered by MD. [facility] 13:45 Patient left the ED. [facility] Signatures: Brent Nogueira PA PA [facility] Mae Corbett, RN RN tw2 Mary Kasper 2 Joan Leblanc RN RN 6 Taryn Rodriguez, RN RN 5 Corrections: (The following items were deleted from the chart) 11:11 11:06 Home Meds: "let me see if i can find my list"; tw2 tw2
[2021-12-25] MEDS ORDERED: FUROSEMIDE 40 MG/4 ML VIAL ONE (13:47)
[2021-12-25 13:50] VITALS: TEMP 98.4
[2021-12-25 13:51] VITALS: BP 116/58; O2SAT 98
== END 2021-12-25 13:45 | disposition home or self-care (01) ==
LOC: ER 10:35
DX: M54.10 Radiculopathy, site unspecified (principal); I10 Essential (primary) hypertension; E11.9 Type 2 diabetes mellitus without complications; Z79.82 Long term (current) use of aspirin; Z85.3 Personal history of malignant neoplasm of breast; Z86.718 Personal history of other venous thrombosis and embolism
CPT/HCPCS: 96372; 99282; J1940

== ENCOUNTER 2022-10-14 18:35 | Emergency (ER) | payer OTHER ==
--- OUTSIDE RECORDS SUMMARY | 2022-10-14 18:39 | XMS REPORT | Clinical Summary ---
:1945 Author Organization [facility] MD [facility] Address [address] [place] [address] Care Team Providers Name Role Phone Sanjeev Mcgowan MD Primary Care Provider Allergies No known active allergies Medications Medication Sig Dispensed Refills Start End Date Status Date aspirin 81 mg EC Take 1 tablet 0 Active tablet (81 mg) by mouth daily. atorvastatin Take 1 tablet 0 Act mayra (LIPITOR) 20 mg (20 mg) by tablet mouth daily. carvedilol (COREG) Take 1 tablet 0 Active 12.5 mg tablet (12.5 mg) by mouth twice daily. clopidogrel (PLAVIX) Take 1 tablet 0 Active 75 mg tablet (75 mg) by mouth daily. gabapentin Take 1 0 Active (NEURONTIN) 300 mg capsule (300 2 capsule mg) by mouth every 4 (four) hours. glimepiride (AMARYL) Take 1 tablet 0 Active 2 mg tablet (2 mg) by mouth twice daily. levothyroxine Take 1 tablet 0 Ac tive (SYNTHROID, (25 mcg) by LEVOTHROID) 25 mcg mouth daily. tablet losartan (COZAAR) 50 Take 1 tablet 0 Active mg tablet (50 mg) by 2 mouth daily. meloxicam (MOBIC) 7.5 2 (two) times 0 Active mg tablet a day as 2 needed. valsartan (DIOVAN) 40 Take 1 tablet 0 Active mg tablet (40 mg) by mouth daily. diphenhydrAMINE-aceta Take 1 tablet 0 Active minophen (TYLENOL PM) by mouth 25-500 mg tab nightly as needed for sleep. prochlorperazine Take 1 tablet 30 tablet 2 Active (Compazine) 10 mg (10 mg) by 2 tabletIndications: mouth every 6 Infiltrating duct (six) hours carcinoma, NOS of as needed for overlapping lesion of nausea or breast <Female; vomiting. Right> ribociclib (Kisqali) Take 2 42 tablet 1 Active 400 mg/day (200 mg x tablets (400 2 2) tabletIndications: mg) by mouth Infiltrating duct daily. Every carcinoma, NOS of morning for overlapping lesion of 21 days breast <Female; followed by 7 Right> days off. Repeat every 28 days. letrozole (FEMARA) TAKE 1 TABLET 28 tablet 1 Active 2.5 mg BY MOUTH 2 tabletIndications: DAILY FOR 28 Infiltrating duct DAYS. carcinoma, 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; Right> HYDROcodone-acetamino Take 1 tablet 60 tablet 0 Active phen ([place]) 5 mg-325 by mouth 2 mg per every 4 tabletIndications: (four) hours Chronic pain due to as needed for malignant neoplastic moderate disease pain. traMADol (ULTRAM) 50 every 4 0 10/05/20 Discontinued mg tablet (four) hours. 2 22 letrozole (Femara) Take 1 tablet 28 tablet 1 0 Discontinued 2.5 mg (2.5 mg) by 2 22 (Reorder ) tabletIndications: mouth daily Infiltrating duct for 28 days. carcinoma, 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; Right> ribociclib (Kisqali) Take 2 42 tablet 0 09/29/20 400 mg/day (200 mg x tablets (400 2 22 2) tabletIndications: mg) by mouth Infiltrating duct every morning carcinoma, NOS of for 21 days. overlapping lesion of Followed by 7 breast <Female; days off. Right> Repeat every 28 days. 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, ER+, UT-, HER2-) - Signed by Sanjeev Mcgoawn MD on 09/03/2022 Encounters Date Type Specialty Care Team Description 10/05/2022 Infusion Infusion Services Yvette De La Torre, Infilt rating duct ANP carcinoma, NOS of overlapping les ion of breast <Female; 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) 10/05/2022 Follow-Up Breast Medical Sanjeev Mcgowan, Infiltra ting duct carcinoma, 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; 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); Oncology MD Chronic pain du e to malignant neoplastic disease 10/05/2022 Travel 09/23/2022 Refill Breast Medical Yvette De La Torre, Infiltrat ing duct Oncology ANP carcinoma, NOS of overlapping les ion of breast <Female; Right> 09/17/2022 Ancillary Radiology Sanjeev Mcgowan, Infiltrati ng duct Procedure carcinoma, NOS of overlapping les ion of breast <Female; Right> 09/17/2022 Travel 09/16/2022 Ancillary Radiology Alex, Cancer Procedure MD Karen 09/16/2022 Ancillary Radiology Alex, Cancer Procedure MD Karen 09/11/2022 Orders Only Breast Medical Yvette De La Torre, Infiltrat ing duct Oncology ANP carcinoma, NOS of overlapping les ion of breast <Female; 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) 09/08/2022 Orders Only Breast Medical 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, 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 09/08/2022 Orders Only Breast Medical Sanjeev Mcgowan, Infiltra ting duct Oncology carcinoma, NOS of overlapping les ion of breast <Female; 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) 09/04/2022 Orders Only Breast Medical Yvette De La Torre, Oncology ANP 09/03/2022 Office Visit Breast Medical Sanjeev Mcgowan, Infiltra ting duct carcinoma, 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; 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); Oncology Carcinoma, NOS of breast, NOS <Female; Right> 09/03/2022 Orders Only Breast Medical Sanjeev Mcgowan, Infiltra ting duct Oncology carcinoma, NOS of overlapping les ion of breast <Female; 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) 09/03/2022 Travel 06/16/2022 Ancillary Radiology Alex, Cancer Procedure MD Karen 06/13/2022 Telephone Melvina Baumann, Discharge Call RN 06/12/2022 Emergency Emergency Medicine Asim Lozoya, [address] st cancer (Primary Dx); Back pain after 10/14/2021 Surgical History Surgery Date Site/Laterality Comments MASTECTOMY 1999 CHOLECYSTECTOMY unk Medical History Medical History Date Comments Hypertension unk Hyperlipidemia unk 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 Difficulty talking September 2021 Lung nodule June 22 Disorder of thyroid gland unk Diabetes mellitus unk Malignant tumor of breast 1998 Family History Medical History Relation Name Comments -Other cancer Daughter Lyssa Ruiz cervical cancer Hysterectomy at age 34 Cervical cancer Daughter Lyssa Ruiz Colon cancer Father Austin Baumann Stomach cancer Sister Edwige Baumann Relation Name Status Comments Daughter Lyssa Ruiz Alive Father Austin Baumann Sister Edwige Baumann Social History Tobacco Use Types Packs/Day Years Used Date Smoking Tobacco: Never Smokeless Tobacco: Never Tobacco Cessation: Counseling Given: Not Answered Alcohol Use Standard Drinks/Week Comments Yes 3 (1 standard drink = 0.6 oz pure social drinker just ever so often alcohol) Sex Assigned at Date Recorded Not on file Job Start Date Occupation Industry Not on file Not on file Not on file COVID-19 Exposure Response Date Recorded In the last 10 days, have you been in contact with No / Unsu re 10/05/2022 12:36 PM ENERGY D[employer]IVATIVES TRADER someone who was confirmed or suspected to have Coronavirus/COVID-19? Obstetrics History Para Term AB IAB SAB Ectopic Multiple Living Live Births 3 2 3 Date Outcome GA Total Labor/2nd/3rd Weight Sex Delivery Anes PTL Evelin A 1 A5 Name Clin Labor Comments Menarche: 15 LMP: year 1999 Last PAP: 2 years wnl Periods: Regular Parity: G3 one baby passed at 4 mo from spinal bif HRT: none OCP: 1 year Menopause:Natural stopped her cycle with chemo breast ca around 1999 Fertility Tx: none Breastfeed: none Last Filed Vital Signs Vital Sign Reading Time Taken Comments Blood Pressure 153/75 10/05/2022 9:11 AM ENERGY DERIVATIVES TRADER Pulse 75 10/05/2022 9:11 AM ENERGY DERIVATIVES [employer]ADER Temperature 37 C (98.6 F) 10/05/2022 9:11 AM ENERGY DERIVATIVES TRADER Respiratory Rate 18 10/05/2022 9:11 AM ENERGY DERIVATIVES TRADER Oxygen Saturation 97% 10/05/2022 9:11 AM ENERGY DERIVATIVES TRADER Inhaled Oxygen Concentration - - Weight 47.3 kg (104 lb 4.4 oz) 10/05/2022 9:13 AM ENERGY DERIVATIVES [employer]ADER Height 140.5 cm (4' 7.32") 09/17/2022 8:58 AM ENERGY DERIVATIVES TRADER Body Mass Index 23.96 09/17/2022 8:58 AM ENERGY DERIVATIVES TRADER Plan of Treatment Date Type Specialty Care Team Description 11/03/2022 Lab Lab Yvette De La Torre, ANP [address], [place] [address] (Wo rk) 11/03/2022 Follow-Up Breast Medical Oncology Sanjeev Mcgowan MD [address] [place], [place] [address] (Wo rk) 11/04/2022 Consult Radiation Oncology Salas Huerta MD [address] [place] [address] (Wo rk) 12/28/2022 Infusion Infusion Services Yvette De La Torre, ANP [address], [place] [address] (Wo rk) Health Maintenance Due Date Last Done Comments COVID-19 Vaccination (#1) 04/16/1946 Procedures Procedure Name Priority Date/Time Associated Comments Diagnosis .GLOMERULAR FILTRATION Routine 10/05/2022 8:[address] Results for this RATE AM [employer]IV[employer]ER carcinoma, NOS of procedure are in overlapping lesion the resul ts of breast <Female; section. Right> SERUM CREATININE Routine 10/05/2022 8:57 Infiltrating duct Res ults for this AM [employer]IV[employer]ER carcinoma, NOS of procedure are in overlapping lesion the resul ts of breast <Female; section. Right> MANUAL DIFFERENTIAL Routine 10/05/2022 8:57 Infiltrating duct Results for this AM [employer]IV[employer]ER carcinoma, NOS of procedure are in overlapping lesion the resul ts of breast <Female; section. Right> Results CBC Routine 10/05/2022 8:57 Infiltrating duct Results for this AM [employer]ATIV[employer]ER carcinoma, NOS of procedure are in overlapping lesion the resul ts of breast <Female; section. Right> POTASSIUM LEVEL Routine 10/05/2022 8:57 Infiltrating duct Resu lts for this AM [employer]IVATIV[employer]ADER carcinoma, NOS of procedure are in overlapping lesion the resul ts of breast <Female; section. Right> SERUM CREATININE Routine 10/05/2022 8:57 Infiltrating duct AM [employer] D[employer]IVATIVES TRADER carcinoma, 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; Right> MAGNESIUM LEVEL Routine 10/05/2022 8:57 Infiltrating duct Resu lts for this AM [employer]IVATIVES [employer]ADER carcinoma, NOS of procedure are in overlapping lesion the resul ts of breast <Female; section. Right> PHOSPHORUS LEVEL Routine 10/05/2022 8:57 Infiltrating duct Res ults for this AM [employer] D[employer]IVATIVES [employer]ADER carcinoma, NOS of procedure are in overlapping lesion the resul ts of breast <Female; section. Right> CALCIUM LEVEL TOTAL Routine 10/05/2022 8:57 Infiltrating duct Results for this AM [employer]IVATIVES [employer]ADER carcinoma, NOS of procedure are in overlapping lesion the resul ts of breast <Female; section. Right> ASPARTATE Routine 10/05/2022 8:57 Infil[address]ating duct Results for this AMINOTRANSFERASE AM [employer]ERGY DERIVATIVES TRADER carcinoma, NOS of proced ure are in overlapping lesion the resul ts of breast <Female; section. Right> ALANINE AMINOTRANSFERASE Routine 10/05/2022 8:57 Infiltrating duct Results for this AM [employer] D[employer]IVATIVES TRADER carcinoma, NOS of procedure are in overlapping lesion the resul ts of breast <Female; section. Right> ALKALINE PHOSPHATASE Routine 10/05/2022 8:57 Infiltrating duct Results for this AM [employer] D[employer]IVATIVES TRADER carcinoma, NOS of procedure are in overlapping lesion the resul ts of breast <Female; section. Right> BILIRUBIN TOTAL Routine 10/05/2022 8:57 Infiltrating duct Resu lts for this AM [employer]IVATIVES TRADER carcinoma, NOS of procedure are in overlapping lesion the resul ts of breast <Female; section. Right> COMPLETE BLOOD COUNT W/ Routine 10/05/2022 8:57 Infiltrating d uct DIFFERENTIAL AM [employer]IVATIVES [employer]ADER carcinoma, 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; Right> PETCT CONTRAST ENHANCED Routine 09/17/2022 10:09 Infiltrating duct Results for this SUBSEQUENT TREATMENT AM [employer] D[employer]IVATIVES TRADER carcinoma, NOS of pr ocedure are in STRATEGY overlapping lesion the resul ts of breast <Female; section. Right> POC GLUCOSE SCREEN Routine 09/17/2022 8:46 Result s for this AM [employer]ATIVES [employer]ADER procedure are i n the results section. HP LB LIQUID BIOPSY Routine 09/03/2022 11:57 PANEL V1 INTERPRETATION AM CDT AND REPORT NGS BLOOD CONTROL Routine 09/03/2022 11:57 Res ults for this AM CDT procedure are i n the results section. .GLOMERULAR FILTRATION Routine 09/03/2022 11:57 Infiltrating d uct Results for this RATE AM CDT carcinoma, NOS of procedure are in overlapping lesion the resul ts of breast <Female; section. Right> SERUM CREATININE Routine 09/03/2022 11:57 Infiltrating duct Re sults for this AM CDT carcinoma, NOS of procedure are in overlapping lesion the resul ts of breast <Female; section. Right> MANUAL DIFFERENTIAL Routine 09/03/2022 11:57 Infiltrating duct Results for this AM CDT carcinoma, NOS of procedure are in overlapping lesion the resul ts of breast <Female; section. Right> Results CBC Routine 09/03/2022 11:57 Infiltrating duct Result s for this AM CDT carcinoma, NOS of procedure are in overlapping lesion the resul ts of breast <Female; section. Right> CANCER ANTIGEN 15-3 Routine 09/03/2022 11:57 [address]ating duct Results for this AM CDT carcinoma, NOS of procedure are in overlapping lesion the resul ts of breast <Female; section. Right> ALBUMIN LEVEL Routine 09/03/2022 11:57 Infiltrating duct Resul ts for this AM CDT carcinoma, NOS of procedure are in overlapping lesion the resul ts of breast <Female; section. Right> PROTHROMBIN TIME Routine 09/03/2022 11:57 Infiltrating duct Re sults for this AM CDT carcinoma, NOS of procedure are in overlapping lesion the resul ts of breast <Female; section. Right> POTASSIUM LEVEL Routine 09/03/2022 11:57 Infiltrating duct Res ults for this AM CDT carcinoma, NOS of procedure are in overlapping lesion the resul ts of breast <Female; section. Right> SERUM CREATININE Routine 09/03/2022 11:57 Infiltrating duct AM CDT carcinoma, 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; Right> MAGNESIUM LEVEL Routine 09/03/2022 11:57 Infiltrating duct Res ults for this AM CDT carcinoma, NOS of procedure are in overlapping lesion the resul ts of breast <Female; section. Right> PHOSPHORUS LEVEL Routine 09/03/2022 11:57 Infiltrating duct Re sults for this AM CDT carcinoma, NOS of procedure are in overlapping lesion the resul ts of breast <Female; section. Right> CALCIUM LEVEL TOTAL Routine 09/03/2022 11:57 [address]ating duct Results for this AM CDT carcinoma, NOS of procedure are in overlapping lesion the resul ts of breast <Female; section. Right> ASPARTATE Routine 09/03/2022 11:57 Infil[address]ating duct Result s for this AMINOTRANSFERASE AM CDT carcinoma, NOS of proced ure are in overlapping lesion the resul ts of breast <Female; section. Right> ALANINE AMINOTRANSFERASE Routine 09/03/2022 11:57 Infil[address]ating duct Results for this AM CDT carcinoma, NOS of procedure are in overlapping lesion the resul ts of breast <Female; section. Right> ALKALINE PHOSPHATASE Routine 09/03/2022 11:57 Infiltrating ricardo t Results for this AM CDT carcinoma, NOS of procedure are in overlapping lesion the resul ts of breast <Female; section. Right> BILIRUBIN TOTAL Routine 09/03/2022 11:57 [address]ating duct Res ults for this AM CDT carcinoma, NOS of procedure are in overlapping lesion the resul ts of breast <Female; section. Right> BLOOD UREA NITROGEN Routine 09/03/2022 11:57 [address] duct Results for this AM CDT carcinoma, NOS of procedure are in overlapping lesion the resul ts of breast <Female; section. Right> COMPLETE BLOOD COUNT W/ Routine 09/03/2022 11:57 [address] duct DIFFERENTIAL AM CDT carcinoma, 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; Right> HEPATITIS C VIRUS Routine 09/03/2022 11:57 [address] duct R esults for this ANTIBODY AM CDT carcinoma, NOS of procedure are in overlapping lesion the resul ts of breast <Female; section. Right> HP LB PIK3CA MUTATION Routine 09/03/2022 11:[address] Results for this ANALYSIS COLLECTION, AM CDT carcinoma, NOS of pr ocedure are in BLOOD overlapping lesion the resul ts of breast <Female; section. Right> HP LB ERBB2 FULL GENE Routine 09/03/2022 11:[address] Results for this MUTATION ANALYSIS AM CDT carcinoma, NOS of proce dure are in COLLECTION, BLOOD overlapping lesion the results of breast <Female; section. Right> EKG, 12-LEAD (SCHEDULED) Routine 09/03/2022 Infiltrating ricardo t carcinoma, 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; Right> URINALYSIS WITH Now 06/12/2022 3:01 Results f or this MICROSCOPIC IF INDICATED PM CDT pro cedure are in the results section. URINE CULTURE Now 06/12/2022 3:01 Results for this PM CDT procedure are i n the results section. CT SOFT TISSUE NECK W Routine 06/12/2022 1:57 Res ults for this CONTRAST PM CDT procedure are i n the results section. FRACTIONATED BILIRUBIN Now 06/12/2022 11:56 R esults for this AM CDT procedure are i n the results section. TOTAL PROTEIN Now 06/12/2022 11:56 Results fo r this AM CDT procedure are i n the results section. ASPARTATE Now 06/12/2022 11:56 Results for this AMINOTRANSFERASE AM CDT procedure a re in the results section. ALANINE AMINOTRANSFERASE Now 06/12/2022 11:56 Results for this AM CDT procedure are i n the results section. ALKALINE PHOSPHATASE Now 06/12/2022 11:56 Res ults for this AM CDT procedure are i n the results section. ALBUMIN LEVEL Now 06/12/2022 11:56 Results fo r this AM CDT procedure are i n the results section. CALCIUM LEVEL TOTAL Now 06/12/2022 11:56 Resu lts for this AM CDT procedure are i n the results section. .GLOMERULAR FILTRATION Now 06/12/2022 11:56 R esults for this RATE AM CDT procedure are i n the results section. SERUM CREATININE Now 06/12/2022 11:56 Results for this AM CDT procedure are i n the results section. ELECTROLYTE PANEL Now 06/12/2022 11:56 Result s for this AM CDT procedure are i n the results section. BLOOD UREA NITROGEN Now 06/12/2022 11:56 Resu lts for this AM CDT procedure are i n the results section. GLUCOSE LEVEL Now 06/12/2022 11:56 Results fo r this AM CDT procedure are i n the results section. MANUAL DIFFERENTIAL STAT 06/12/2022 11:56 Resu lts for this AM CDT procedure are i n the results section. Results CBC STAT 06/12/2022 11:56 Results for this AM CDT procedure are i n the results section. TROPONIN T Now 06/12/2022 11:56 Results for this AM CDT procedure are i n the results section. NT PRO BNP Now 06/12/2022 11:56 Results for this AM CDT procedure are i n the results section. APTT Now 06/12/2022 11:56 Results for this AM CDT procedure are i n the results section. PROTHROMBIN TIME Now 06/12/2022 11:56 Results for this AM CDT procedure are i n the results section. HIV-1/2 ANTIGEN AND Now 06/12/2022 11:56 Resu lts for this ANTIBODIES, FOURTH AM CDT procedure are in GENERATION the results section. PHOSPHORUS LEVEL Now 06/12/2022 11:56 Results for this AM CDT procedure are i n the results section. MAGNESIUM LEVEL Now 06/12/2022 11:56 Results for this AM CDT procedure are i n the results section. COMPREHENSIVE METABOLIC Now 06/12/2022 11:56 PANEL AM CDT COMPLETE BLOOD COUNT W/ Now 06/12/2022 11:56 DIFFERENTIAL AM CDT OSI CT SFT TISS NECK Routine 06/04/2022 9:07 Cancer Resu lts for this PM CDT procedure are i n the results section. OSI MRI SPINE THORACIC Routine 06/02/2022 4:48 Cancer Re sults for this AM CDT procedure are i n the results section. OSI MRI SPINE LUMBAR Routine 01/05/2022 9:07 Cancer Resu lts for this PM [employer]ER procedure are i n the results section. after 10/14/2021 Results (ABNORMAL) .Serum Creatinine (10/05/2022 8:57 AM ENERGY DERIVATIVES TRADER)Only the most recent of3 resultswithin the time period is included. athologist Signature Creatinine 1.05 (H) 0.51 - 0.95 [place] mg/dL Comment: Testing performed at [facility], [address] [place] [address] Specimen Anatomical Collection Method Collection Time Receive d Time (Source) Location / / Volume Laterality Blood 10/05/2022 8:57 AM 8:58 ENER[employer] D[employer]IVATIVES [employer]ADER AM [employer]ER[employer] DERIVATIVES TRADER Sanjeev Mcgowan MD LAB BLOOD ORDERABLES Performing Organization Address City/State/ZIP Code Phon e Number [place] [facility], [place] [id number] [place] [address] (ABNORMAL) .CBC (10/05/2022 8:57 AM ENERGY DERIVATIVES TRADER)Only the most recent of3 resultswithin the time period is included. athologist Signature WBC 2.2 (L) 4.0 - 11.0 [place] K/uL Comment: All components of the CBC perfo rmed at [facility], [address] [place] [address], [place] [address] RBC 3.27 (L) 4.00 - 5.50 M/uL [place] Comment: All components of the CBC perfo rmed at [facility], [address] [place] [address], [place] [address] Hgb 10.7 (L) 12.0 - 16.0 gm/dL [place] Comment: As part of CBC or as an individ ual orderable testing performed at [facility], [address] [place] [address], [place] [address] Hct 32.3 (L) 37.0 - 47.0 % [place] Comment: As part of CBC testing performe d at [facility], [address] [place] [address], [place] [address] MCV 99 (H) 82 - 98 fL [place] Comment: As part of CBC testing performe d at [facility], [address] [place] [address], [place] [address] MCH 32.7 (H) 27.0 - 31.0 pg [place] Comment: As part of CBC testing performe d at [facility], [address] [place] [address], [place] [address] MCHC 33.1 31.0 - 36.0 gm/dL [place] Comment: As part of CBC testing performe d at [facility], [address] [place] [address], [place] [address] RDW-SD 46.6 (H) 35.1 - 46.3 fL [place] Comment: As part of CBC testing performe d at [facility], [address] [place] [address], [place] [address] RDW-CV 14.1 12.0 - 15.5 % [place] Comment: As part of CBC testing performe d at [facility], [address] [place] [address], [place] [address] Platelet count 225 140 - 440 K/uL [facility] Comment: As part of CBC or an individual orderable testing performed at [facility], [address] [place] [address] MPV 8.9 4.0 - 10.4 fL [place] Comment: As part of CBC testing performe d at [facility], [address] [place] [address] Specimen Anatomical Collection Method Collection Time Receive d Time (Source) Location / / Volume Laterality Blood 10/05/2022 8:57 AM 8:58 ENERGY DERIVATIVES TRADER AM ENERGY DERIVATIVES TRADER Sanjeev Mcgowan MD LAB BLOOD ORDERABLES Performing Organization Address City/State/[place] [address] [place] [address] (ABNORMAL) Glomerular Filtration Rate (10/05/2022 8:57 AM ENERGY DERIVATIVES TRADER)Only the most recent of3 resultswithin the time period is included. athologist Signature eGFR 55 (L) >=60 [place] mL/min/1.73 sq. m Comment: The eGFRcr is calculated with the 2020 KD-EPI creatinine equation using creatinine, patient's age, and sex for adults 18 years of age and older. Other factors, especially muscle mass, may affect accuracy and need to be considered. According to the Kidney Disease: Improvi ng Global Outcomes (KDIGO) CKD Work Group 2012 Clinical Practice Guideline, chronic kidney disease (CKD) is defined as the abnormalities of kidney structure or function, present for more than 3 months, with implications for health. CKD should be c lassified by cause, GFR category, and albuminuria category. KDIGO guidelines provide the following GFR categories Stage Description GFR mL/min/1.73 m2 G1* Normal or high >= 90 G2* Mildly decreased 60-89 G3a Mildly to moderately decreased 45-59 G3b Moderately to severely decreased 30- 44 G4 Severely decreased 15-29 G5 Kidney failure <15 *In the absence of evidence of kidney da mage, neither G1 nor G2 fulfill criteria for CKD. Testing performed at [facility], [address] [place] [address] Specimen Anatomical Collection Method Collection Time Receive d Time (Source) Location / / Volume Laterality Blood 10/05/2022 8:57 AM 2 8:58 ENERGY DERIVATIVES TRADER AM ENERGY DERIVATIVES TRADER Sanjeev Mcgowan MD LAB BLOOD ORDERABLES Performing Organization Address City/State/ZIP Code [place] [address] [place] [address] (ABNORMAL) Differential (10/05/2022 8:57 AM ENERGY DERIVATIVES TRADER)Only the most recent of3 results within the time period is included. athologist Signature Neutrophil % 64.7 42.0 - 66.0 [place] % Comment: All components of the Different ial performed at [facility], [address] [place], [place] [id number] Lymphocyte % 23.3 (L) 24.0 - 44.0 % [place] Comment: As part of the Differential kinsey ting performed at [facility], [address] [place] [address] Monocyte % 8.5 (H) 2.0 - 7.0 % [place] Comment: As part of the Differential kinsey ting performed at [facility], [address] [place], [place] [id number] Eosinophil % 1.3 1.0 - 4.0 % [place] Comment: As part of the Differential kinsey ting performed at [facility], [address] [place], [place] [id number] Basophil % 1.8 (H) 0.0 - 1.0 % [place] Comment: As part of the Differential kinsey ting performed at [facility], [address] [place] [address] IGRE % 0.4 0.0 - 0.4 % [place] Comment: IGRE % count includes Metamyelocytes, My elocytes, and Promyelocytes. As part of the Differential testing perf ormed at [facility], [address] [place] [address] Neutrophil Abs 1.44 (L) 1.70 - 7.30 K/uL [facility] ITY Comment: As part of the Differential kinsey ting performed at [facility], [address] [place], [place] [id number] Lymphocyte Abs 0.52 (L) 1.00 - 4.80 K/uL [facility] Comment: As part of the Differential kinsey ting performed at [facility], [address] [place] [address] Monocyte Abs 0.19 0.08 - 0.70 K/uL [facility] Comment: As part of the Differential kinsey ting performed at [facility], [address] [place] [address] Eosinophil Abs 0.03 (L) 0.04 - 0.40 K/uL [facility] Comment: As part of the Differential kinsey ting performed at [facility], [address] [place] [address], [place] [address] Basophil Abs 0.04 0.00 - 0.10 K/uL [facility] Comment: As part of the Differential kinsey ting performed at [facility], [address] [place] [address], [place] [address] IG Abs 0.01 0.00 - 0.04 K/uL [place] Comment: As part of the Differential kinsey ting performed at [facility], [address] [place] [address] Specimen Anatomical Collection Method Collection Time Receive d Time (Source) Location / / Volume Laterality Blood 10/05/2022 8:57 AM 2 8:58 ENERGY DERIVATIVES TRADER AM ENERGY DERIVATIVES TRADER Sanjeev Mcgowan MD LAB BLOOD ORDERABLES Performing Organization Address City/[facility]/ZIP Code Phon e Number [place], [place] [id number] [place] [address] ALT (10/05/2022 8:57 AM ENERGY DERIVATIVES TRADER)Only the most recent of3 resultswithin the time period is included. P athologist Signature ALT 5 <=33 U/L [place] Comment: Testing performed at [facility], [address] [place] [address] Specimen Anatomical Collection Method Collection Time Receive d Time (Source) Location / / Volume Laterality Blood 10/05/2022 8:57 AM 2 8:58 ENERGY DERIVATIVES TRADER AM ENERGY DERIVATIVES TRADER Sanjeev Mcgowan MD LAB BLOOD ORDERABLES Performing Organization Address City/[facility]/ZIP Code Phon e [place], [place] [id number] [place] [address] Aspartate Aminotransferase (10/05/2022 8:57 AM ENERGY DERIVATIVES TRADER)Only the most recent of3 resultswithin the time period is included. P athologist Signature AST 13 <=32 U/L [place] Comment: Testing performed at [facility], [address] [place] [address] Specimen Anatomical Collection Method Collection Time Receive d Time (Source) Location / / Volume Laterality Blood 10/05/2022 8:57 AM 2 8:58 ENERGY DERIVATIVES TRADER AM ENERGY DERIVATIVES TRADER Sanjeev Mcgowan MD LAB BLOOD ORDERABLES Performing Organization Address City/[facility]/[address] Potassium Level (10/05/2022 8:57 AM ENERGY DERIVATIVES TRADER)Only the most recent of2 resultswithin the time period is included. athologist Signature Potassium Lvl 4.0 3.5 - 5.1 [place] mEq/L Comment: Testing performed at [facility], [address] [place] [address] Specimen Anatomical Collection Method Collection Time Receive d Time (Source) Location / / Volume Laterality Blood 10/05/2022 8:57 AM 2 8:58 ENERGY DERIVATIVES TRADER AM ENERGY DERIVATIVES TRADER Sanjeev Mcgowan MD LAB BLOOD ORDERABLES Performing Organization Address City/[facility] Phon e [place], [place] [phone] [place] [address] Phosphorus Level (10/05/2022 8:57 AM ENERGY DERIVATIVES TRADER)Only the most recent of3 resultswithin the time period is included. athologist Signature Phosphorus 3.5 2.5 - 4.5 [place] mg/dL Comment: Testing performed at [facility], [address] [place] [address] Specimen Anatomical Collection Method Collection Time Receive d Time (Source) Location / / Volume Laterality Blood 10/05/2022 8:57 AM 2 8:58 ENERGY DERIVATIVES TRADER AM ENERGY DERIVATIVES TRADER Sanjeev Mcgowan MD LAB BLOOD ORDERABLES Performing Organization Address City/[facility]/ZIP Code Phon e Number [address] Alkaline Phosphatase (10/05/2022 8:57 AM ENERGY DERIVATIVES TRADER)Only the most recent of3 results within the time period is included. P athologist Signature Alk Phos 75 35 - 104 U/L [place] Comment: Testing performed at [facility], [address] [place] [address] Specimen Anatomical Collection Method Collection Time Receive d Time (Source) Location / / Volume Laterality Blood 10/05/2022 8:57 AM 2 8:58 ENERGY DERIVATIVES TRADER AM ENERGY DERIVATIVES TRADER Sanjeev Mcgowan MD LAB BLOOD ORDERABLES Performing Organization Address City/[facility] Phon e [address] (ABNORMAL) Magnesium Level (10/05/2022 8:57 AM ENERGY DERIVATIVES TRADER)Only the most recent of3 resultswithin the time period is included. athologist [facility] Magnesium 1.3 (L) 1.6 - 2.6 [place] mg/dL Comment: Testing performed at [facility], [address] [place] [address] Specimen Anatomical Collection Method Collection Time Receive d Time (Source) Location / / Volume Laterality Blood 10/05/2022 8:57 AM 2 8:58 ENERGY DERIVATIVES TRADER AM ENERGY DERIVATIVES TRADER Sanjeev Mcgowan MD LAB BLOOD ORDERABLES Performing Organization Address City/[facility] Phon e [address] Calcium Level (10/05/2022 8:57 AM ENERGY DERIVATIVES TRADER)Only the most recent of3 resultswithin the time period is included. P athologist Signature Calcium Lvl 8.8 8.4 - 10.2 [place] mg/dL Comment: Testing performed at [facility], [address] [place] [address] Specimen Anatomical Collection Method Collection Time Receive d Time (Source) Location / / Volume Laterality Blood 10/05/2022 8:57 AM 8:58 ENERGY DERIVATIVES TRADER AM ENERGY DERIVATIVES TRADER Sanjeev Mcgowan MD LAB BLOOD ORDERABLES Performing Organization Address City/[facility]/ZIP Code Phon e Number [place], [place] [phone] [place] [address] Bilirubin Total (10/05/2022 8:57 AM ENERGY DERIVATIVES TRADER)Only the most recent of2 resultswithin the time period is included. athologist Signature Bili Total 0.5 <=1.2 mg/dL [place] Comment: Indocyanine Green (ICG) may cause falsel y elevated bilirubin results. Total and direct bilirubin must not be measured from samples containing indocyanine green. False elevation of total bilirubin can b e seen in patients with IgG concentrations above 28 g/L. [facility] at [facility], [address] [place] [address] Specimen Anatomical Collection Method Collection Time Receive d Time (Source) Location / / Volume Laterality Blood 10/05/2022 8:57 AM 8:58 ENERGY DERIVATIVES TRADER AM ENERGY DERIVATIVES TRADER Sanjeev Mcgowan MD LAB BLOOD ORDERABLES Performing Organization Address City/[facility] Code Phon e Number [place], [place] [phone] [place] [address] PETCT Contrast Enhanced Subsequent Treatment Strategy (09/17/2022 10:09 AM ENERGY DERIVATIVES TRADER) Anatomical Region Laterality Modality Whole Body Positron Emission To mography (PET) Specimen (Source) Anatomical Collection Method Collection Time Re ceived Time Location / / Volume Laterality 09/23/2022 7:26 AM ENERGY DERIVATIVES TRADER Impressions 09/23/2022 7:41 AM ENERGY DERIVATIVES TRADER FDG avid adenopathy on both sides of the diaphragm associated with pleural-based disease in the left hemithorax. FDG avid hepatic metastasis and osseous metastasis as described above. Narrative 09/23/2022 7:41 AM ENERGY DERIVATIVES TRADER FULL RESULT: Examination: Contrast-Enhanced FDG PET /CT, 09/17/2022 10:09 AM Clinical History: 76-year-old female pat ient with breast cancer, post multi modality therapy. Indication: Restaging for subsequent amy atment strategy. Comparison: CT scan of the neck 2 Technique: F-18 fluorodeoxyglucose (FD G) 11.0 mCi was administered intravenously via left antecubital vein. To allow for distribution and uptake of radiotracer, the patient was asked to rest quietly for approximately 60-90 minutes. PET/ CT imaging was performed from the orbits to mid thigh. CT scanning was done for attenuation correction, image registration, and diagnosis with scan parameters opt imized to minimize radiation exposure to the patient. The CT portion of the examination was performed with intravenous contrast. SUV measurements are reported as maximum SUV based on body weight unless otherwise specified. Findings: Head and Neck: The visualized portions o f the brain demonstrate normal activity. The sinuses are well-aerated. Asymmetric activity with reduction of activity noted in the left cricoarytenoid muscle whic h may relate to focal cord paralysis on this site. Subcentimeter left supraclavicular node does not demonstrate activity. No FDG avid nodes seen in the rest of the cervical or lateral retropharyngeal elida regions. Chest: FDG avid mediastinal subcarinal a nd bilateral hilar adenopathy is seen. The largest prevascular node is seen on image 69 measuring 2.1 x 1.4 cm maximum SUV of 4.7. Most avid node measures 2.1 x 1.3 cm on image 62 maximum SUV of 14.3. Multiple pleural-based nodules are seen in the left hemithorax. The largest pleural-based nodule in the medial left lung base measures 4.5 cm with a maximum SUV of 13.5. A large left-sided pleural effus ion is seen in a moderate-sized right pl eural effusion is noted. No suspicious FDG avid pulmonary nodules identified. No pericardial effusion seen. Changes from prior right mastectomy appe ars stable with no abnormal activity along the right chest wall.. Abdomen and Pelvis: FDG avid metastasis is seen in the right lobe of the liver measuring 3.4 cm maximum SUV of 14.8 on image 104. No abnormal focal lesion seen in the spleen, adrenals or pancreas. Tracer excretion is seen in the kidneys. FDG avid left para-aortic node measuring 1.1 cm on image 125 has a maximum SUV of 10.6. No FDG avid nodes in the pelvic or ingui nal areas. Musculoskeletal: FDG avid sclerotic lesi on seen in the right side of T12 vertebral body at the costal vertebral junction on image 116 maximum SUV of 6.1 and focal uptake in T9 vertebral body on image 94 maximum SUV of 4.7 may relate to metast atic disease. Focal uptake in the right sixth rib laterally may relate to benign rib fracture. Procedure Note Wally Bey MD - 09/23/2022Format ting of this note might be different from the original. FULL RESULT: Examination: Contrast-Enhanced FDG PET/C T, 09/17/2022 10:09 AM Clinical History: 76-year-old female pat ient with breast cancer, post multi modality therapy. Indication: Restaging for subsequent amy atment strategy. Comparison: CT scan of the neck Technique: F-18 fluorodeoxyglucose (FDG) 11.0 mCi was administered intravenously via left antecubital vein. To allow for distribution and uptake of radiotracer, the patient was asked to rest quietly for approximately 60-90 minutes. PET/CT imag ing was performed from the orbits to mid thigh. CT scanning was done for attenuation correction, image registration, and diagnosis with scan parameters optimized to minimize radiation exposure to the patient. The C T portion of the examination was performed with intravenous contrast. SUV measurements are reported as maximum SUV based on body weight unless otherwise specified. Findings: Head and Neck: The visualized portions o f the brain demonstrate normal activity. The sinuses are well-aerated. Asymmetric activity with reduction of activity noted in the left cricoarytenoid muscle which may relate to focal cord paralysis on this site. Subce ntimeter left supraclavicular node does not demonstrate activity. No FDG avid nodes seen in the rest of the cervical or lateral retropharyngeal elida regions. Chest: FDG avid mediastinal subcarinal a nd bilateral hilar adenopathy is seen. The largest prevascular node is seen on image 69 measuring 2.1 x 1.4 cm maximum SUV of 4.7. Most avid node measures 2.1 x 1.3 cm on image 62 maximum SUV of 14.3. Multiple pleural-based nodules are seen in the left hemithorax. The largest pleural-based nodule in the medial left lung base measures 4.5 cm with a maximum SUV of 13.5. A large left-sided pleural effusion is seen in a moderate-sized right pleural effusion is noted. No suspicious FDG avid pulmonary nodules identified. No pericardial effusion seen. Changes from prior right mastectomy appe ars stable with no abnormal activity along the right chest wall.. Abdomen and Pelvis: FDG avid metastasis is seen in the right lobe of the liver measuring 3.4 cm maximum SUV of 14.8 on image 104. No abnormal focal lesion seen in the spleen, adrenals or pancreas. Tracer excretion is seen in the kidneys. FDG avid left para-aortic node measuring 1.1 cm on image 125 has a maximum SUV of 10.6. No FDG avid nodes in the pelvic or ingui nal areas. Musculoskeletal: FDG avid sclerotic lesi on seen in the right side of T12 vertebral body at the costal vertebral junction on image 116 maximum SUV of 6.1 and focal uptake in T9 vertebral body on image 94 maximum SUV of 4.7 may relate to metastatic disease. Fo can uptake in the right sixth rib laterally may relate to benign rib fracture. IMPRESSION: FDG avid adenopathy on both sides of the diaphragm associated with pleural-based disease in the left hemithorax. FDG avid hepatic metastasis and osseous metastasis as described above. Sanjeev Mcgowan MD IMG PETCT ORDERABLES (ABNORMAL) POC Glucose Screen (09/17/2022 8:46 AM ENERGY DERIVATIVES TRADER) P athologist Signature POC Glucose 121 (H) 70 - 99 POC [facility] mg/dL Comment: Capillary blood samples, e.g. obtained b y fingerstick, may have inaccurate results in patients with decreased peripheral blood flow. Method description: All results are peri ured using Electrochemistry test methodology. The glucose in the sample mixes with the reagents on the test strip. The reaction produces an electric current. The amount of current produced is proportion al to the glucose concentration in the blood. PO Sample Type BLOOD POC [facility] Performing Lab [facility] POC [facility]EL[facility] R Comment: [facility] flakito Nieves-Clinical [facility] ,[address] [place] [address], [place] [address], Point of Care Emergency Medicine Physician: Radha Greenwood MD Specimen Anatomical Collection Method Collection Time Receive d Time (Source) Location / / Volume Laterality Blood 09/17/2022 8:46 AM 8:46 ENERGY DERIVATIVES TRADER AM ENERGY DERIVATIVES TRADER Sanjeev Mcgowan MD POCT ORDERABLES - DEVICE Performing Organization Address City/State/ZIP Code Phon e Number POC [facility] LB Liquid Biopsy Panel V1 Interpretation and Report (09/03/2022 11:57 AM CDT) Specimen (Source) Anatomical Collection Method Collection Time Re ceived Time Location / / Volume Laterality 09/03/2022 11:57 AM CDT Narrative This result has an attachment that is no t available. Sanjeev Mcgowan MD, MDA [facility] (HP MD) LB [id number] Mutation Analysis with Interpretation and Report - Liquid Biopsy genotyping when no tumor tissue is available (09/03/2022 11:57 AM CDT) athologist Signature Molecular Yes [facility] (Received) Specimen Anatomical Collection Method Collection Time Receive d Time (Source) Location / / Volume Laterality Blood 09/03/2022 11:57 09/03/2022 3:46 AM CDT PM CDT Sanjeev Mcgowan MD, MDA HP MD BLOOD COLLECTIONS Performing Organization Address City/[facility]/ZIP Code Phon e Number [facility] Unless otherwise noted, [address] all lab tests performed by: Division of Pathology and Laboratory Medicine Ellis MCCORMICK ERBB2 Full Gene Mutation Analysis with Interpretation and Report - Liquid Biopsy genotyping when no tumor tissue is available (09/03/2022 11:57 AM CDT) athologist Signature Molecular Yes [facility] (Received) Specimen Anatomical Collection Method Collection Time Receive d Time (Source) Location / / Volume Laterality Blood 09/03/2022 11:57 09/03/2022 3:46 AM CDT PM CDT Sanjeev Mcgowan MD, MDA HP MD BLOOD COLLECTIONS Performing Organization Address City/State/ZIP Code Phon e Number [facility] Unless otherwise noted, [address] all lab tests performed by: Division of Pathology and Laboratory Medicine Ellis Kat MD NGS Blood Control (09/03/2022 11:57 AM CDT) P athologist Signature Molecular Yes [facility] (Received) Specimen Anatomical Collection Method Collection Time Receive d Time (Source) Location / / Volume Laterality Blood 09/03/2022 11:57 09/03/2022 3:46 AM CDT PM CDT Sanjeev Mcgowan MD [facility] IP HP MOLECULAR DIAG IF ORDERABLES Performing Organization Address City/[facility]/ZIP Code Phon e Number [facility] Unless otherwise noted, [address] all lab tests performed by: Division of Pathology and Laboratory Medicine [address] [place] [address] Hepatitis C Virus Ab (09/03/2022 11:57 AM CDT) Patholo gist Method Time Signature HCVAb. Non Reactive Non Reactive [facility] Comment: Antibody detection in the immunocompromi sed and immunosuppressed population may be delayed or absent entirely. Therefore serial testing, correlation with other clinical findings, and supplemental testin g (if available) should be taken into co nsideration when interpreting the results. Specimen Anatomical Collection Method Collection Time Receive d Time (Source) Location / / Volume Laterality Blood 09/03/2022 11:57 09/04/2022 7:21 AM CDT AM CDT Sanjeev Mcgowan MD LAB BLOOD ORDERABLES Performing Organization Address City/[facility] Phon e Number [facility] Unless otherwise noted, [address] all lab tests performed by: Division of Pathology and Laboratory Medicine [address] [place] [address] (ABNORMAL) Carbohydrate Antigen 15-3 (09/03/2022 11:57 AM CDT) P athologist Signature CA 15-3 159.1 (H) <=25.0 U/mL [place] Comment: Results greater than 2400 U/L may not be reliable due to matrix effect with extended dilution as it exceeds the commuter train operator s recommended limit. Caution should be exercised when interpreting such sarath ues and done in conjunction with clinica l context. This test is measured by electrochemilum inescence immunoassay on Martha Evelio immunoassay analyzers. Results obtained in different methods are not interchangeable. [facility] at [facility], [address] [place] [address], [place] [address] Specimen Anatomical Collection Method Collection Time Receive d Time (Source) Location / / Volume Laterality Blood 09/03/2022 11:57 09/03/2022 AM CDT 12:10 PM CDT Sanjeev Mcgowan MD LAB BLOOD ORDERABLES Performing Organization Address City/[facility]/ZIP Code Phon e Number [place], [place] [phone] [place] [address] Prothrombin Time with INR (09/03/2022 11:57 AM CDT)Only the most recent of2 resultswithin the time period is included. athologist Signature PT 13.6 11.9 - 14.1 [place] second(s) Comment: Testing performed at [facility], [address] [place] [address] INR 1.05 0.89 - 1.10 [place] Comment: Testing performed at [facility], [address] [place] [address] Specimen Anatomical Collection Method Collection Time Receive d Time (Source) Location / / Volume Laterality Blood 09/03/2022 11:57 09/03/2022 AM CDT 12:10 PM CDT Narrative [place] - 09/03/2022 12:35 PM CDT This lab cannot be scheduled at the [facility] locations due to collection/proccessing restrictions: [facility] and [facility]. Yvette De La Torre ANP LAB BLOOD ORDERABLES Performing Organization Address City/[facility] Code Phon e Number [place], [place] [phone] [place] [address] BUN (09/03/2022 11:57 AM CDT)Only the most recent of2 resultswithin the time period is included. P athologist Signature BUN 15 6 - 23 mg/dL [place] Comment: Testing performed at [facility], [address] [place] [address] Specimen Anatomical Collection Method Collection Time Receive d Time (Source) Location / / Volume Laterality Blood 09/03/2022 11:57 09/03/2022 AM CDT 12:10 PM CDT Yvette De La Torre ANP LAB BLOOD ORDERABLES Performing Organization Address City/State/ZIP Code Phon e Number [place], [place] [phone] [place] [address] Albumin Level (09/03/2022 11:57 AM CDT)Only the most recent of2 resultswithin the time period is included. P athologist Signature Albumin Lvl 3.6 3.5 - 5.2 [place] gm/dL Comment: [facility], [address] [place] [address], [place] [address] Specimen Anatomical Collection Method Collection Time Receive d Time (Source) Location / / Volume Laterality Blood 09/03/2022 11:57 09/03/2022 AM CDT 12:10 PM CDT Yvette De La Torre ANP LAB BLOOD ORDERABLES Performing Organization Address City/[facility]/[place] [address] [place] [address] EKG, 12-Lead (Scheduled) (09/03/2022) Specimen (Source) Anatomical Location Collection Method / Collectio n Time Received Time / Laterality Volume Narrative This result has an attachment that is no t available. Yvette De La Torre ANP ECG ORDERABLES Performing Organization Address City/[facility]/ZIP Code Phon e Number [facility] IECG Urinalysis w/Microscopic if Indicated (06/12/2022 3:01 PM CDT) Patholo gist Method Time Signature UA Color Straw Straw-Yel [facility] UA Appear Clear Clear [facility] UA Glucose NEG NEG mg/dL [facility] UA Bili NEG NEG [facility] UA Ketones NEG NEG mg/dL [facility] UA Spec Grav 1.008 1.003 - [place] 1.035 [facility] UA Blood NEG NEG [facility] UA pH 6.5 5.0 - 9.0 [facility] UA Protein NEG NEG mg/dL [facility] UA Urobilinogen NEG NEG [facility] UA Nitrite NEG NEG [facility] UA Leuk Est NEG NEG [facility] UA Comment See Comment [facility] Comment: No microscopic exam performed, physiochemical findings are negative Specimen Anatomical Collection Method Collection Time Receive d Time (Source) Location / / Volume Laterality Urine 06/12/2022 3:01 PM 2 3:07 CDT PM CDT Karen Johnson MD URINE ORDERABLES Performing Organization Address City/[facility] Phon e Number [facility] Unless otherwise noted, [address] all lab tests performed by: Division of Pathology and Laboratory Medicine [address] [place] [address] (ABNORMAL) Urine Culture (06/12/2022 3:01 PM CDT) Component Value Ref Test Analysis Performed At [facility] gist Range Method Time Signature Final Report 10 - 50,000 cfu/ml [place] MD Anu NIEVES agalactiae (Group [facility] Path Review - The results have been review ed and electronically signed by Pathologist: [place] Urine EDY GEE MD #[id number] [facility] Specimen Anatomical Collection Method Collection Time Receive d Time (Source) Location / / Volume Laterality Urine 06/12/2022 3:01 PM 2 9:28 CDT PM CDT Karen Johnson MD MICROBIOLOGY - GENERAL ORDER BELKIS Performing Organization Address City/[facility] Phon e Number [facility] Unless otherwise noted, [address] all lab tests performed by: Division of Pathology and Laboratory Medicine [address] [place] [address] CT Soft Tissue Neck with Contrast (06/12/2022 1:57 PM CDT) Anatomical Region Laterality Modality Neck Computed Tomography Specimen (Source) Anatomical Collection Method Collection Time Re ceived Time Location / / Volume Laterality 06/12/2022 2:05 PM CDT Impressions 06/12/2022 4:55 PM CDT 1. Partially visualized upper mediastinal lymphadenopathy and suspicious left lower neck lymph nodes, likely representing metastatic disease. 2. Infiltrative tumor is noted at the left lower trachea soft tissue groove which may be involving the recurrent laryngeal nerve, and there is also concern for direct tracheal and esophageal involvement (image 12 of series 3). 3. Left-sided pleural effusion. 4. There is a segment of severe stenos es of the right proximal common carotid artery secondary to noncalcified plaque and there is also moderate to severe stenoses at the origin of the right common carotid artery. Recommend correlation with dedicated [facility] CT and vascular consult is also recommended. I personally reviewed these image(s) erin jamaal with the resident's/fellow's interpretations, certify that if a procedure was performed I was physically present, and agree with the final report. Narrative 06/12/2022 4:55 PM CDT FULL RESULT: Examination: CT SOFT TISSUE NECK W CONTR AST, 06/12/2022 1:57 PM. Clinical History: [facility] to [facility]. 76-year-old female with history of breast cancer in 1999 s/p mastectomy/chemoradiation in remission with recent workups concerning for metastasis presenti jamaal as a new patient, has had 1 year of w orsening back pain and difficulty speaking x 6 months. "Patient was seen by ENT and informed that her difficulty speaking is was because of a lymph node compressing on a nerve that supplies the vocal cord." Indication: Mass, neck mass, hoarseness. Comparison: None available. Technique: Axial CT images of the neck w ere obtained from the aortic arch through the orbits with contrast. Reconstructed sagittal and coronal images were also obtained. Findings: There is partially visualized infiltrati ve mediastinal lymphadenopathy with several para-aortic and paratracheal nodes measuring up to 2 cm. A few prominent, heterogenous enhancing lobulated lymph nodes at the left level 4 and 5 neck stations measuring up to 1.1 cm are also suspicious for metastatic lymphadenopathy (3/36, 39, 42). 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 There is no worrisome right jugular jonathon n adenopathy and there is no adenopathy along the left upper jugular chain. No lateral retropharyngeal adenopathy is seen. No worrisome parotid masses are identif ied. There are edematous changes noted i n the supraglottis with some narrowing of the airway (image 75 of series 3), and no focal enhancing mass lesion is seen. The lungs demonstrate diffuse interlobul ar septal thickening with some fine nodularity. There is also a moderate left pleural effusion. There is calcified and noncalcified plaq ue at the origin of great vessels resulting in mild stenosis at the origin of the right subclavian artery, and there is moderate to severe stenoses at the origin of the right common carotid artery. Ther e is also a segment of severe abdominal stenoses prominently secondary to soft plaque at the right common carotid artery (image 50 of series 3). At the sclerotic changes at the carotid bifurcations bila terally are with mild stenoses on the right and without hemodynamically significant stenoses on the left. There is a small right vertebral artery identified and t he left vertebral artery is dominant. Th ere is calcified plaque at the origin of the left vertebral artery. The orbits, the visualized intracranial compartment, the aerodigestive tract, thyroid gland and the major salivary glands do not demonstrate focal abnormalities. No osseous metastatic lesions are presen t. There is opacification of the right post erior ethmoid air cells. The remaining paranasal sinuses are clear. There is no mastoid effusion. Procedure Note Jett Poon MD - 06/12/2022Formattin g of this note might be different from the original. FULL RESULT: Examination: CT SOFT TISSUE NECK W CONTR AST, 06/12/2022 1:57 PM. Clinical History: New patient to [facility]. 76-year-old female with history of breast cancer in 1999 s/p mastectomy/chemoradiation in remission with recent workups concerning for metastasis presenting as a new patient, has had 1 year of worsening back pain and difficulty speaking x 6 months. "Patient was seen by ENT and informed that her difficulty speaking is was because of a lymph node compressing on a nerve that supplies the vocal cord." Indication: Mass, neck mass, hoarseness. Comparison: None available. Technique: Axial CT images of the neck w ere obtained from the aortic arch through the orbits with contrast. Reconstructed sagittal and coronal images were also obtained. Findings: There is partially visualized infiltrati ve mediastinal lymphadenopathy with several para-aortic and paratracheal nodes measuring up to 2 cm. A few prominent, heterogenous enhancing lobulated lymph nodes at the left level 4 and 5 neck stations measuring up to 1.1 cm are also suspicious for metastatic lymphadenopathy (3/36, 39, 42). 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 There is no worrisome right jugular jonathon n adenopathy and there is no adenopathy along the left upper jugular chain. No lateral retropharyngeal adenopathy is seen. No worrisome parotid masses are identified. There are edematous changes noted in the supraglot tis with some narrowing of the airway (image 75 of series 3), and no focal enhancing mass lesion is seen. The lungs demonstrate diffuse interlobul ar septal thickening with some fine nodularity. There is also a moderate left pleural effusion. There is calcified and noncalcified plaq ue at the origin of great vessels resulting in mild stenosis at the origin of the right subclavian artery, and there is moderate to severe stenoses at the origin of the right common carotid artery. There is also a segment of severe abdominal stenoses prominently secondary to soft plaque at the right common carotid artery (image 50 of series 3). At the sclerotic changes at the carotid bifurcations bilaterally are with mild s tenoses on the right and without hemodynamically significant stenoses on the left. There is a small right vertebral artery identified and the left vertebral artery is dominant. There is calcified plaque at the origin of the left vertebral artery. The orbits, the visualized intracranial compartment, the aerodigestive tract, thyroid gland and the major salivary glands do not demonstrate focal abnormalities. No osseous metastatic lesions are presen t. There is opacification of the right post erior ethmoid air cells. The remaining paranasal sinuses are clear. There is no mastoid effusion. IMPRESSION: 1. Partially visualized upper mediastina l lymphadenopathy and suspicious left lower neck lymph nodes, likely representing metastatic disease. 2. Infiltrative tumor is noted at the le ft lower trachea soft tissue groove which may be involving the recurrent laryngeal nerve, and there is also concern for direct tracheal and esophageal involvement (image 12 of series 3). 3. Left-sided pleural effusion. 4. There is a segment of severe stenoses of the right proximal common carotid artery secondary to noncalcified plaque and there is also moderate to severe stenoses at the origin of the right common carotid artery. Recommend correlation with dedicated [address] [facility] CT and vascular consult is also recommended. I personally reviewed these image(s) erinabilio hinton with the resident's/fellow's interpretations, certify that if a procedure was performed I was physically present, and agree with the final report. Karen Johnson MD IMG CT ORDERABLES HIV-1/2 Antigen and Antibodies, Fourth Generation (06/12/2022 11:56 AM CDT) Analysis Performed At [facility] HIV Ag/Ab, 4TH NON-REACTI NON-REACTI [facility] Comment: HIV-1 antigen and HIV-1/HIV-2 antibodies were not detected. There is no laboratory evidenc e of HIV infection. PLEASE NOTE: This information has been d isclosed to you from records whose confidentiality m ay be protected by state law. If your state requires such protection, then the state law prohibits you from making any further disclosure of the inf ormation without the specific written consent of the person to whom it pertains, or as otherwise per mitted by law. A general authorization for the release of medical or other information is NOT sufficient for this purpose. For additional information please refer to http://education.[employer].trustedsafe/fa q/EAQ802 (This link is being provided for informa tional/ educational purposes only.) The performance of this assay has not be en clinically validated in patients less than 2 years old. Lab test performed by: Lab Mnemonic: [facility] [address] [id number] MOLLY DOLAN MD Specimen Anatomical Collection Method Collection Time Receive d Time (Source) Location / / Volume Laterality Blood 06/12/2022 11:56 06/12/2022 AM CDT 12:42 PM CDT Karen Johnson MD LAB BLOOD ORDERABLES Performing Organization Address City/State/ZIP Code Phon e Number [facility] Fractionated Bilirubin (06/12/2022 11:56 AM CDT) P athologist Signature Bili Total 0.4 <=1.2 mg/dL [facility] Comment: Indocyanine Green (ICG) may cause falsel y elevated bilirubin results. Total and direct bilirubin must not be measured from samples containing indocyanine green. False elevation of total bilirubin can b e seen in patients with IgG concentrations above 28 g/L. Bili Direct <0.2 <=0.3 mg/dL [facility] Comment: Indocyanine Green (ICG) may cau se falsely elevated bilirubin results. Total and direct bilirubin must not be measure d from samples containing indocyanine green. Bili Indirect See Note 0.0 - 0.9 mg/dL [place] MD [facility] Comment: Unable to calculate Indirect Bi lirubin result due to some parameters are outside reportable range Specimen Anatomical Collection Method Collection Time Receive d Time (Source) Location / / Volume Laterality Blood 06/12/2022 11:56 06/12/2022 AM CDT 12:26 PM CDT Karen Johnson MD LAB BLOOD ORDERABLES Performing Organization Address City/State/ZIP Code Phon e Number [facility] Unless otherwise noted, [address] all lab tests performed by: Division of Pathology and Laboratory Medicine [address] aPTT (06/12/2022 11:56 AM CDT) athologist Signature aPTT 30.1 22.8 - 34.2 [facility](s) [facility] Specimen Anatomical Collection Method Collection Time Receive d Time (Source) Location / / Volume Laterality Blood 06/12/2022 11:56 06/12/2022 AM CDT 12:12 PM CDT Karen Johnson MD LAB BLOOD ORDERABLES Performing Organization Address City/[facility]/ZIP Code Phon e Number [facility] Unless otherwise noted, [address] all lab tests performed by: Division of Pathology and Laboratory Medicine [address] NT-Pro BNP (In-House) (06/12/2022 11:56 AM CDT) P athologist Signature NT ProBNP 373 <=450 pg/mL [facility] Specimen Anatomical Collection Method Collection Time Receive d Time (Source) Location / / Volume Laterality Blood 06/12/2022 11:56 06/12/2022 AM CDT 12:27 PM CDT Karen Johnson MD LAB BLOOD ORDERABLES Performing Organization Address City/[facility]/ZIP Code Phon e Number [facility] Unless otherwise noted, [address] all lab tests performed by: Division of Pathology and Laboratory Medicine [address] [place] Troponin T (In-House) (06/12/2022 11:56 AM CDT) athologist Signature Troponin T 15 <=18 ng/L [facility] Comment: < 19 ng/L Suggest retest at 3 to 6 hours later to rule out myocardial infarction >= 19 to <=52 ng/L Pos sible myocardial injury. Suggest retest at 3 hours. - a change of < 20 ng/L, retest at 6 hours - a change of >= 20 ng/L, suggestive of myocardial infarction > 52 ng/L Suggestive of myocardial infarction Critical value will be reported when cTn T is > 52 ng/L and only reported for the first in a series. Hemolyzed specimens with Hemolysis Index >100 (100 mg/dl or moderate hemolysis) may cause interferences and falsely low results. Specimen Anatomical Collection Method Collection Time Receive d Time (Source) Location / / Volume Laterality Blood 06/12/2022 11:56 06/12/2022 AM CDT 12:21 PM CDT Karen Johnson MD LAB BLOOD ORDERABLES Performing Organization Address City/[facility]/ZIP [facility] Phon e Number [facility] Unless otherwise noted, [address] all lab tests performed by: Division of Pathology and Laboratory Medicine [address] Total Protein (06/12/2022 11:56 AM CDT) [facility] Total Protein 7.2 6.4 - 8.3 [facility] g/dL [facility] Specimen Anatomical Collection Method Collection Time Receive d Time (Source) Location / / Volume Laterality Blood 06/12/2022 11:56 06/12/2022 AM CDT 12:26 PM CDT Karen Johnson MD LAB BLOOD ORDERABLES Performing Organization Address City/State/[facility] Phon e Number [facility] Unless otherwise noted, [address] all lab tests performed by: Division of Pathology and Laboratory Medicine [address] (ABNORMAL) Glucose Level (06/12/2022 11:56 AM CDT) athologist Signature Glucose Level 178 (H) 70 - 99 [facility] mg/dL [facility] Comment: Effective 05/27/16, the glucose reference intervals have been updated based on [place] Diabetes Association guidelines (Standards of Medical Care in Diabetes 2016. Diabetes Care 2016; 39: S13-S22). Fasting blood glucose: Normal: 70-99 mg/dL Impaired fasting glucose (increased risk for diabetes or pre-diabetes): 100- 125 mg/dL Diabetes mellitus: >/=126 mg/dL Random blood glucose: Normal: 70-199 mg/dL Note: Random glucose >100 mg/dL is assoc iated with increased risk for diabetes Specimen Anatomical Collection Method Collection Time Receive d Time (Source) Location / / Volume Laterality Blood 06/12/2022 11:56 06/12/2022 AM CDT 12:26 PM CDT Karen Johnson MD LAB BLOOD ORDERABLES Performing Organization Address City/State/ZIP Code Phon e Number [facility] Unless otherwise noted, [address] all lab tests performed by: Division of Pathology and Laboratory Medicine [address] [place] [address] (ABNORMAL) Electrolyte Panel (06/12/2022 11:56 AM CDT) athologist Signature Sodium Lvl 134 (L) 136 - 145 [facility] mEq/L [facility] Potassium Lvl 4.2 3.5 - 5.1 [facility] mEq/L [facility] Chloride 98 98 - 107 [facility] mEq/L [facility] CO2 25 22 - 29 [facility] mEq/L [facility] Anion Gap 11 4 - 14 [facility] mEq/L [facility] Specimen Anatomical Collection Method Collection Time Receive d Time (Source) Location / / Volume Laterality Blood 06/12/2022 11:56 06/12/2022 AM CDT 12:26 PM CDT Karen Johnson MD LAB BLOOD ORDERABLES Performing Organization Address City/[facility]/ZIP Code Phon e Number [facility] Unless otherwise noted, [address] all lab tests performed by: Division of Pathology and Laboratory Medicine [address] [place] [address] SFT TISS NECK (06/04/2022 9:07 PM CDT) Specimen (Source) Anatomical Location Collection Method / Collectio n Time Received Time / Laterality Volume Narrative Systemgenerated, Documentation - 022 9:07 PM [employer] DERIVATIVES TRADER Study acquired at another institution. For comparison only. No MD Nieves originated interpretation requested or a vailable. Karen Johnson MD IMG OUTSIDE IMAGE ORDERABLES [facility] MRI SPINE THORACIC (06/02/2022 4:48 AM CDT) Specimen (Source) Anatomical Location Collection Method / Collectio n Time Received Time / Laterality Volume Narrative Systemgenerated, Documentation - 022 4:48 AM CDT Study acquired at another institution. For comparison only. No MD Nieves originated interpretation requested or a vailable. Karen MADRIDG OUTSIDE IMAGE ORDERABLES [facility] MRI SPINE LUMBAR (01/05/2022 9:07 PM ENERGY DERIVATIVES TRADER) Specimen (Source) Anatomical Location Collection Method / Collectio n Time Received Time / Laterality Volume Narrative Systemgenerated, Documentation - 9:07 PM [employer]IVATIVES TRADER Study acquired at another institution. For comparison only. No MD Nieves originated interpretation requested or a vailable. 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
--- OUTSIDE RECORDS SUMMARY | 2022-10-14 18:41 | XMS REPORT | Continuity of Care Document ---
:1945 Author Organization [facility] t Address [address] [place] [address] Care Team Providers Name Role Phone [phone] Primary Care Physician Unavailable SYSTEM, PROVIDER NOT IN Attending Clinician Unavailable Yvette Caballero Attending Clinician YVETTE DE LA TORRE Attending Clinician Unavailable Sanjeev Long MD Attending Clinician SANJEEV LONG Attending Clinician Unavailable Naresh Hermosillo MD Attending Clinician NARESH HERMOSILLO Attending Clinician Unavailable 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 NP Attending Clinician Kristi Clifton MD Attending Clinician KRISTI CLIFTON Attending Clinician Unavailable Roel Estrella DO Attending Clinician [phone] Omar Lloyd Attending Clinician [phone] KRISTI CLITFON Attending Clinician Unavailable Pastor LOPEZ, Melvina Benavides Attending Clinician Gnea Freitas MD Attending Clinician GENA FREITAS Attending Clinician Unavailable Provider, [facility] Attending Clinician Unavailable Lab, Adc Fam Pob I Attending Clinician Unavailable Kt Diaz Attending Clinician KT GOMEZ Attending Clinician Unavailable Doctor Unassigned, Erma Attending Clinician Unavailable KRISTI CLIFTON Admitting Clinician Unavailable Payers Payer Name Policy Type Policy Number Effective Date Expiration Date Tori DRAPERP [facility] [id number] [facility] Problems Condition Condition Condition Status Onset Resolution Last Treating Co mments Source Name Details Category Date Date Treatment Clinician Date 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 U nivers ng duct ng duct 0-28 [place] of 00 MD stanleypin overlappin An derso g lesion g lesion n of breast of breast [facility] er <Female; <Female; Center Right> Right> Lymphadeno Lymphadeno Disease Active [facility] 00[facility] Medical 00 Center History of History of Disease Active [facility] right [facility] breast breast 00:00: Medical cancer cancer 00 Center Primary Primary Disease Active [facility] 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 Co llege hyroidism hyroidism 00:00: of (HCCode) (HCCode) 00 Medici n e Pain of Pain of Disease Active [facility] right hip right hip 112 Mu ege joint joint 00:00: of 00 Medicin e Benign Benign Disease Active [facility] hypertensi hypertensi 1-12 Co llege on with on with 00:00: of chronic chronic 00 Medicin kidney kidney e disease disease Hypothyroi Hypothyroi Disease Active [facility] dism due dism due 12 Colleg e to defect to defect 00:00: of in thyroid in thyroid 00 Me dicin 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 synthesis Type 2 Type 2 Disease Active [facility] diabetes diabetes 1-12 Colleg e mellitus mellitus 00:00: of with with 00 Medicin chronic chronic e kidney kidney disease disease Allergies, Adverse Reactions, Alerts Allergy Allergy Status Severity Reaction(s) Onset Inactive Treating Comm ents Source Name Type Date Date Clinician NO KNOWN Drug Active Univers ALLERGIE Class ity of [facility] NO KNOWN Allergy Active [facility] Family History Family Member Diagnosis Comments Start Date Stop Date Source Natural daughter -Other cancer Unive rsity [facility] Natural daughter Cervical cancer Uni versity [facility] Natural father Colon cancer [facility] Natural sister Stomach cancer Univer sity [facility] Social History Social Habit Start Date Stop Date Quantity Comments Source History SDOH [facility] Std [facility] Drinks History SDOH [facility] Alcohol Binge Medical Joseph ter Exposure to 2022-09-25 2022-10-05 Not sure [facility] [place] [facility]-CoV-2 00:00:00 12:36:00 [place] [facility] (event[facility] Alcohol intake 2022-06-26 2022-06-26 [facility] of alcohol Medical Center (finding) History SDOH 2022-06-18 2022-06-[address] [facility] Alcohol Frequency 00:00:00 00:00:00 Medical Center History SDOH 2022-06-18 2022-06-[address] [facility] Alcohol Comment 00:00:00 00:00:00 Medical C enter Tobacco use and 2022-06-18 2022-06-[address] [facility] [address] [facility] exposure 00:00:00 00:00:00 Medical Center Sex Assigned At [address] [facility] 00:00:00 00:00:00 Medical Center Smoking Status Start Date Stop Date Source Never smoked tobacco [facility] Current some day smoker 2017-11-26 00:00:00 [facility] Medications Ordered Filled Start Stop Current Ordering Indication Dosage Frequency Signature Comments Components Source Medication Medication Date Date Medication? Clinician (SIG) Name Name aspirin 81 2021-11 Yes 81mg Take 1 Unive rs mg EC 2-05 tablet (81 ity of tablet 09:24: mg) by [place] 25 mouth MD daily. [facility] atorvastati 2021-11 Yes 20mg Take 1 Univ ers n (LIPITOR) 2-05 tablet (20 it y of 20 mg 09:24: mg) by [place] tablet 25 mouth MD daily. [facility] carvedilol 2021-11 Yes 12.5mg Take 1 Uni vers (COREG) 2-05 tablet ity of 12.5 mg 09:24: (12.5 mg) [place] tablet 25 by mouth MD twice Anderso daily. [facility] clopidogrel 2021-11 Yes 75mg Take 1 Univ ers (PLAVIX) 75 2-05 tablet (75 it y of mg tablet 09:24: mg) by [place] 25 mouth MD daily. [facility] glimepiride 2021-11 Yes 2mg Take 1 Univ ers (AMARYL) 2 2-05 tablet (2 ity of mg tablet 09:24: mg) by [place] 25 mouth [facility]. [facility] levothyroxi 2021-11 Yes 25ug Take 1 Univ ers ne 2-05 tablet (25 ity of (SYNTHROID, 09:24: mcg) by Patrick as LEVOTHROID) 25 mouth MD 25 mcg daily. [facility] tablet [facility] valsartan 2021-11 Yes 40mg Take 1 Univer s (DIOVAN) 40 2-05 tablet (40 it y of mg tablet 09:24: mg) by [place] 25 mouth MD daily. [facility] diphenhydrA 2021-11 Yes 1{tbl} Take 1 Un nishant MINE-acetam 2-05 tablet by ity of inophen 09:24: mouth Aliyah (TYLENOL 25 nightly as MD PM) 25-500 needed for And erso mg tab sleep. [facility] HYDROcodone 2021-11 Yes Chronic 1{tbl} Take 1 Univers -acetaminop 2-05 pain due to tablet by ity of hen ([place]) 00:00: malignant mouth [place] 5 mg-325 mg 00 neoplastic every 4 MD per tablet disease (four) Cyrus rso hours as n needed for Cancer moderate Center pain. letrozole 2021-11 Yes Infiltratin TAKE 1 Univers (FEMARA) 1-23 g duct TABLET BY ity of 2.5 mg 00:00: carcinoma, MOUTH [place] tablet 00 NOS of DAILY FOR MD overlapping 28 DAYS. Cyrus rso lesion of n breast Cancer <Female; Center Right> ribociclib 2021-11 Yes Infiltratin 400mg Take 2 Univers (Kisqali) 1-08 g duct tablets ity o f 400 mg/day 00:00: carcinoma, (400 mg) Aliyah (200 mg x 00 NOS of by mouth 2) tablet overlapping daily. A nderso lesion of Every n breast morning Cancer <Female; for 21 Center Right> days followed by 7 days off. Repeat every 28 days. prochlorper 2021-11 Yes Infiltratin 10mg Take 1 Univers azine 1-03 g duct tablet (10 ity of (Compazine) 00:00: carcinoma, mg) by [place] 10 mg 00 NOS of mouth MD tablet overlapping every 6 And erso lesion of (six) n breast hours as Cancer <Female; needed for Cente r Right> nausea or vomiting. ribociclib 2021-11- No Infiltratin 400mg Take 2 Univers (Kisqali) 1-03 11-30 g duct tablets ity of 400 mg/day 00:00: 05:59 carcinoma, (400 mg) Aliyah (200 mg x 00 :00 NOS of by mouth 2) tablet overlapping every An derso lesion of morning n breast for 21 Cancer <Female; days. Center Right> Followed by 7 days off. Repeat every 28 days. letrozole 2021-11- No Infiltratin 2.5mg Take 1 Univers (Femara) 1-03 11-23 g duct tablet ity of 2.5 mg 00:00: 20:25 carcinoma, (2.5 mg) [place] tablet 00 :24 NOS of by mouth overlapping daily for And erso lesion of 28 days. n breast Cancer <Female; Center Right> traMADol 2021- No every 4 Unive rs (ULTRAM) 50 9-21 12-05 (four) ity o f mg tablet 00:00: 00:00 hours. Aliyah 00 :00 [facility] carvediloL Yes 12.5mg QD Take 12.[address] (COREG) 8-27 mg by [facility]ukes 12.5 MG 15:30: mouth Medical tablet 03 daily. Center losartan Yes 50mg Q.5D Take [address] (COZAAR) 50 8-27 by mouth 2 Evelia kes MG tablet 15:30: (two) Medical 03 times Center daily. levothyroxi Yes 25ug Take [address] ne 8-27 mcg by Lukes (SYNTHROID, 15:30: mouth Medic al LEVOTHROID) 03 Every Center 25 MCG morning on tablet an empty stomach. atorvastati Yes 20mg QD Take [address] n (LIPITOR) 8-27 by mouth Luke s 20 MG 15:30: daily. Medical tablet 03 Center clopidogreL Yes 75mg QD Take [address] (PLAVIX) 75 8-27 by mouth Luke s mg tablet 15:30: daily. Medica l 03 [place] glimepiride Yes 2mg Q.5D Take [address] (AMARYL) 2 8-27 by mouth 2 Lisa es MG tablet 15:30: (two) Medical 03 times Center daily. methylPREDN Yes 4mg QD Take [address] ISolone 8-27 by mouth Lukes (MEDROL) 4 15:30: daily. Medic al MG tablet 03 [place] aspirin 81 Yes 81mg QD Take [address] MG EC 8-27 by mouth [facility]ukes tablet 15:30: daily. Medical 03 [place] gabapentin Yes 300mg Take [address] (NEURONTIN) 8-27 mg by [facility] 300 MG 15:30: mouth Medical capsule 03 every 4 Center (four) hours. traMADoL Yes 50mg Take [address] (ULTRAM) 50 8-27 by mouth Luke s mg tablet 15:30: every 4 Medic al 03 (four) Center hours. carvedilol Yes 12.5mg Take 12.5 Haresh (COREG) 8-18 mg by [place] 12.5 MG 09:26: mouth of tablet 25 daily. Medicin e levothyroxi Yes 25ug Take 25 [place] radha ne 8-18 mcg by [place] (SYNTHROID) 09:26: mouth of 25 MCG 25 daily. Medicin tablet e atorvastati Yes 20mg Take 20 mg Haresh n (LIPITOR) 8-18 by mouth Mu ege 20 MG 09:26: daily. of tablet 25 Medicin e clopidogrel Yes 75mg Take 75 mg [facility] (PLAVIX) 75 -18 by mouth Mu ege MG Tablet 09:26: daily. of 25 Medicin e glimepiride Yes 2mg Take 2 mg [facility] (AMARYL) 2 18 by mouth Colle ge MG tablet 09:26: two times of 25 daily. Medicin e JASWANT Yes 81mg Take 81 mg [facility] ASPIRIN EC 18 by mouth Colle ge LOW DOSE 81 09:26: daily. of MG 25 Medicin e tramadol Yes 50mg Take 50 mg [place] radha (ULTRAM) 50 8-07 by mouth Mu ege MG tablet 00:00: every 4 of 00 hours as Medicin needed. e losartan Yes 50mg Take 1 Univers (COZAAR) 50 7-26 tablet (50 it y of mg tablet 00:00: mg) by [place] 00 mouth MD [facility]. [facility] los[facility] Yes 50mg Take 50 mg [place] radha (COZAAR) 50 7-26 by mouth Mu ege MG tablet 00:00: daily. of 00 Medicin e gabapentin Yes 300mg Take 1 Univ ers (NEURONTIN) 7-19 capsule ity o f 300 mg 00:00: (300 mg) [place] capsule 00 by mouth MD every 4 Anderso (four) n hours. Cancer Center methylPREDN Yes 4mg 4 mg [facility] ISolone 4 7-19 daily. College MG TBPK 00:00: of 00 Medicin e gabapentin Yes 300mg Take 300 [facility] (NEURONTIN) 7-19 mg by [place] 300 MG 00:00: mouth of capsule 00 daily. Medicin e meloxicam Yes 2 (two) Unive rs (MOBIC) 7.5 2-15 times a ity o f mg tablet 00:00: day as [place] 00 needed. MD Kylie nayak [facility] glimepiride Yes 1mg Take 1 mg U nivers 1 mg tablet 1-24 by mouth 2 it y of 16:31: (two) [place] 35 times Medical daily. Branch atorvastati 2018-0 Yes 20mg Take 20 mg Univers n 20 mg 1-24 by mouth ity of tablet 16:31: at [place] [address] bedtime. Medical Branch clopidogrel 0 Yes 75mg Take 75 mg Univers 75 mg 1-24 by mouth ity of tablet 16:31: daily. [place] [address] Medical Branch carvedilol 0 Yes 12.5mg Take 12.5 Univers 12.5 mg 1-24 mg by ity of tablet 16:31: mouth 2 [place] [address] (two) Medical times [place] daily with meals. levothyroxi 0 Yes 25ug Take 25 Uni vers ne 25 mcg 1-24 mcg by ity of tablet 16:31: mouth [place] [address] every Medical morning. Branch aspirin 81 0 Yes 81mg Take 81 mg U nivers mg EC 1-24 by mouth ity of tablet 16:31: daily. [address] Branch valsartan 0 Yes 40mg Take 40 mg Un nishant 40 mg 1-24 by mouth ity of tablet 16:31: daily. [address] Branch vitamin 2017-0 Yes 1000ug Take 1,000 Un nishant B-12 1-24 mcg by ity of (VITAMIN 16:31: mouth [place] B-12) 1,000 35 daily. Medica l mcg tablet Branch glimepiride 0 Yes 1mg Take 1 mg U nivers 1 mg tablet 1-24 by mouth 2 it y of 16:31: (two) [place] [address] times [facility] daily. Branch atorvastati 0 Yes 20mg Take 20 mg Univers n 20 mg 1-24 by mouth ity of tablet 16:31: at [place] [address] bedtime. Medical Branch clopidogrel 0 Yes 75mg Take 75 mg Univers 75 mg 1-24 by mouth ity of tablet 16:31: daily. [place] [address] Medical Branch carvedilol 0 Yes 12.5mg Take 12.5 Univers 12.5 mg 1-24 mg by ity of tablet 16:31: mouth 2 [place] [address] (two) Medical times [place] daily with meals. levothyroxi 2017-0 Yes 25ug Take 25 Uni vers ne 25 mcg 1-24 mcg by ity of tablet 16:31: mouth [place] [address] every Medical morning. Branch aspirin 81 0 Yes 81mg Take 81 mg U nivers mg EC 1-24 by mouth ity of tablet 16:31: daily. [place] [address] Medical Branch valsartan 2017-0 Yes 40mg Take 40 mg Un nishant 40 mg 1-24 by mouth ity of tablet 16:31: daily. [address] Branch vitamin 2018-0 Yes 1000ug Take 1,000 Un nishant B-12 1-24 mcg by ity of (VITAMIN 16:31: mouth [place] B-12) 1,000 35 daily. Medica l mcg tablet Branch glimepiride 0 Yes 1mg Take 1 mg U nivers 1 mg tablet 1-24 by mouth 2 it y of 16:31: (two) [place] 35 times Medical daily. Branch atorvastati 0 Yes 20mg Take 20 mg Univers n 20 mg 1-24 by mouth ity of tablet 16:31: at [place] [address] bedtime. Medical Branch clopidogrel 0 Yes 75mg Take 75 mg Univers 75 mg 1-24 by mouth ity of tablet 16:31: daily. [place] [address] Medical Branch carvedilol 0 Yes 12.5mg Take 12.5 Univers 12.5 mg 1-24 mg by ity of tablet 16:31: mouth 2 [place] [address] (two) Medical times Branch daily with meals. levothyroxi 0 Yes 25ug Take 25 Uni vers ne 25 mcg 1-24 mcg by ity of tablet 16:31: mouth [place] [address] every Medical morning. Branch aspirin 81 0 Yes 81mg Take 81 mg U nivers mg EC 1-24 by mouth ity of tablet 16:31: daily. [place] [address] Medical Branch valsartan 0 Yes 40mg Take 40 mg Un nishant 40 mg 1-24 by mouth ity of tablet 16:31: daily. [place] [address] Medical Branch vitamin 2018-0 Yes 1000ug Take 1,000 Un nishant B-12 1-24 mcg by ity of (VITAMIN 16:31: mouth [place] B-12) 1,000 35 daily. Medica l mcg tablet Branch glimepiride 2017-0 Yes 1mg Take 1 mg U nivers 1 mg tablet 1-24 by mouth 2 it y of 16:31: (two) [place] [address] times Medical daily. Branch atorvastati 0 Yes 20mg Take 20 mg Univers n 20 mg 1-24 by mouth ity of tablet 16:31: at [place] [address] bedtime. Medical Branch clopidogrel 0 Yes 75mg Take 75 mg Univers 75 mg 1-24 by mouth ity of tablet 16:31: daily. [address] Branch carvedilol Yes 12.5mg Take 12.5 Univers 12.5 mg 1-24 mg by ity of tablet 16:31: mouth 2 [place] [address] (two) Medical times Branch daily with meals. levothyroxi Yes 25ug Take 25 Uni vers ne 25 mcg 1-24 mcg by ity of tablet 16:31: mouth [place] [address] every Medical morning. Branch aspirin 81 Yes 81mg Take 81 mg U nivers mg EC 1-24 by mouth ity of tablet 16:31: daily. [address] Branch valsartan Yes 40mg Take 40 mg Un nishant 40 mg 1-24 by mouth ity of tablet 16:31: daily. [address] vitamin Yes 1000ug Take 1,000 Un nishant B-12 1-24 mcg by ity of (VITAMIN 16:31: mouth [place] B-12) 1,000 35 daily. Medica l mcg tablet Branch Vital Signs Vital Name Observation Time Observation Value Comments Source WEIGHT 2022-06-26 09:40:00 46.72 kg HEIGHT 2022-06-26 09:40:00 147.3 cm HEIGHT 2022-06-18 14:04:00 147.3 cm WEIGHT 2022-06-18 14:04:00 50.349 kg WEIGHT 2022-06-26 09:40:00 46.72 kg HEIGHT 2022-06-26 09:40:00 147.3 cm HEIGHT 2022-06-18 14:04:00 147.3 cm WEIGHT 2022-06-18 14:04:00 50.349 kg WEIGHT 2022-06-26 09:40:00 46.72 kg HEIGHT 2022-06-26 09:40:00 147.3 cm HEIGHT 2022-06-18 14:04:00 147.3 cm WEIGHT 2022-06-18 14:04:00 50.349 kg Systolic blood 2022-06-18 14:12:00 133 mm[Hg] [facility] pressure Medicine Diastolic blood 2022-06-18 14:12:00 61 mm[Hg] [facility] pressure Medicine Heart rate 2022-06-18 14:12:00 73 /min [facility] Body temperature 2022-06-18 14:12:00 36.89 Cordelia [facility] Body height 2022-06-18 14:12:00 147.3 cm [facility] Body weight 2022-06-18 14:12:00 50.44 kg [facility] BMI 2022-06-18 14:12:00 23.24 kg/m2 [facility] Body weight 2022-10-05 15:13:[address] [facility] BMI 2022-10-05 15:13:00 23.96 kg/m2 [facility]i [facility] Systolic blood 2022-10-05 15:11:08 153 mm[Hg] Univer sity of pressure [place] MD [facility] Diastolic blood 2022-10-05 15:11:08 75 mm[Hg] Unive rsity of pressure Aliyah [facility] Heart rate 2022-10-05 15:11:08 75 /min Universi ty of [place] MD [facility] Body temperature 2022-10-05 15:11:08 37 Cordelia Univ ersity of [place] MD [facility] Respiratory rate 2022-10-05 15:11:08 18 /min Univ ersity Aliyah [facility] Oxygen saturation in 2022-10-05 15:11:08 97 /min [facility] blood by Aliyah freeman Pulse oximetry [facility] Center Body height 2022-09-17 14:58:[address] [facility] MD [facility] Systolic blood 2022-06-26 15:00:00 158 mm[Hg] [facility] Center Diastolic blood 2022-06-26 15:00:00 78 mm[Hg] [facility] S [facility] Center Heart rate 2022-06-26 15:00:00 87 /min [facility] Body temperature 2022-06-26 15:00:00 36.33 Cordelia [facility] Respiratory rate 2022-06-26 15:00:00 14 /min [facility] Oxygen saturation in 2022-06-26 15:00:00 96 /min [facility] Arterial blood by Medical Ce nter Pulse oximetry Body height 2022-06-26 09:40:[address] [facility] Body weight 2022-06-26 09:40:[address] [facility] BMI 2022-06-26 09:40:00 21.53 kg/m2 [facility] Procedures Procedure Date / Time Performing Clinician Source Performed COMPLETE BLOOD COUNT W/ 2022-10-05 14:57:20 [facility] BILIRUBIN TOTAL 2022-10-05 14:57:20 Sanjeev Long [facility] ALKALINE PHOSPHATASE 2022-10-05 14:57:20 [facility] AMINOTRANSFERASE 2022-10-05 14:57:20 [facility] ASPARTATE AMINOTRANSFERASE 2022-10-05 14:57:20 Sanjeev Long [facility] CALCIUM LEVEL TOTAL 2022-10-05 14:57:20 Sanjeev Long [facility] PHOSPHORUS LEVEL 2022-10-05 14:57:20 Sanejev Long [facility] MAGNESIUM LEVEL 2022-10-05 14:57:20 Sanjeev Long [facility] SERUM CREATININE 2022-10-05 14:57:20 Sanjeev Long [facility] POTASSIUM LEVEL 2022-10-05 14:57:20 Sanjeev Long [facility] Results CBC 2022-10-05 14:57:20 Sanjeev Long [facility] MANUAL DIFFERENTIAL 2022-10-05 14:57:20 Sanjeev Long [facility] SERUM CREATININE 2022-10-05 14:57:20 Sanjeev Long [facility] .GLOMERULAR FILTRATION 2022-10-05 14:57:20 Sanjeev Long [facility] PETCT CONTRAST ENHANCED 2022-09-17 16:09:57 Sanjeev Long [facility] SUBSEQUENT TREATMENT [facility] POC GLUCOSE SCREEN 2022-09-17 14:46:00 Sanjeev Long [facility] PROTHROMBIN TIME 2022-09-03 16:57:00 Yvette De La Torre [facility] ALBUMIN LEVEL 2022-09-03 16:57:00 Yvette De La Torre [facility] CANCER ANTIGEN 15-3 2022-09-03 16:57:00 Sanjeev Long [facility] Results CBC 2022-09-03 16:57:00 Yvette De La Torre [facility] MANUAL DIFFERENTIAL 2022-09-03 16:57:00 Yvette De La Torre [facility] SERUM CREATININE 2022-09-03 16:57:00 Yvette De La Torre [facility] .GLOMERULAR FILTRATION 2022-09-03 16:57:00 [facility] NGS BLOOD CONTROL 2022-09-03 16:57:00 Sanjeev Long [facility] HP LB LIQUID BIOPSY PANEL 2022-09-03 16:57:00 [facility] INTERPRETATION AND MD Kylie nayak Cancer REPORT Center HP LB [id number] FULL GENE 2022-09-03 16:57:00 [facility] MUTATION ANALYSIS [facility] Ca ncer COLLECTION, BLOOD Center HP LB [id number] MUTATION 2022-09-03 16:57:00 Sanjeev Long [facility] ANALYSIS COLLECTION, BLOOD MD [facility] HEPATITIS C VIRUS ANTIBODY 2022-09-03 16:57:00 Sanjeev Long [facility] COMPLETE BLOOD COUNT W/ 2022-09-03 16:57:00 [facility]vette [facility] Torre [facility] DIFFERENTIAL [facility] BLOOD UREA NITROGEN 2022-09-03 16:57:00 Yvette De La Tor[facility] BILIRUBIN TOTAL 2022-09-03 16:57:00 Yvette De La Torre University o f [facility] ALKALINE PHOSPHATASE 2022-09-03 16:57:00 Yvette De La Torre [facility] ity [facility] ALANINE AMINOTRANSFERASE 2022-09-03 16:57:00 Yvette De La Torre Uni versity [facility] ASPARTATE AMINOTRANSFERASE 2022-09-03 16:57:00 Yvette De La Torre [facility] CALCIUM LEVEL TOTAL 2022-09-03 16:57:00 Yvette De La Torre [facility] PHOSPHORUS LEVEL 2022-09-03 16:57:00 Yvette De La Torre [facility] MAGNESIUM LEVEL 2022-09-03 16:57:00 Yvette De La Torre [place] [facility] SERUM CREATININE 2022-09-03 16:57:00 Yvette De La Torre [facility] POTASSIUM LEVEL 2022-09-03 16:57:00 Yvette De La Torre University o [facility] EKG, 12-LEAD (SCHEDULED) 2022-09-03 00:00:00 Yvette De La Torre [facility] CHEST 1 VIEW PORTABLE / 2022-06-26 13:53:[address] [facility] BEDSIDE [facility] FINE NEEDLE ASPIRATE BY 2022-06-26 13:06:00 Kristi Clifton [facility] EBUS Center EBUS FNA REQUEST 2022-06-26 13:06:00 Kristi Clifton [facility] FINE NEEDLE ASPIRATE BY 2022-06-26 13:05:00 Kristi Clifton [facility] EBUS Center EBUS FNA REQUEST 2022-06-26 13:05:00 Kristi Cliftonncer [facility] BRONCHOSCOPY 2022-06-26 11:02:00 [facility], 2022-06-26 11:02:00 Kristi Clifton Sy deleon [facility] WITH THERAPEUTIC Center BRONCHOSCOPY POCT-GLUCOSE METER 2022-06-26 09:56:00 [facility] 2022-06-12 20:01:00 Naresh Hermosillo [facility] URINALYSIS WITH 2022-06-12 20:01:00 Naresh Hermosillo [facility] MICROSCOPIC IF INDICATED MD [facility] CT SOFT TISSUE NECK W 2022-06-12 18:57:45 Naresh Hermosillo [facility] CONTRAST [facility] COMPLETE BLOOD COUNT W/ 2022-06-12 16:56:00 [facility]resh [facility] [facility] DIFFER[facility] COMPREHENSIVE METABOLIC 2022-06-12 16:56:00 [facility] MAGNESIUM LEVEL 2022-06-12 16:56:00 Naresh Hermosillo [facility] PHOSPHORUS LEVEL 2022-06-12 16:56:00 Naresh Hermosillo [facility] HIV-1/2 ANTIGEN AND 2022-06-12 16:56:00 Naresh Hermosillo [facility] ANTIBODIES, FOURTH [facility] C ancer GENERATION Center PROTHROMBIN TIME 2022-06-12 16:56:00 Naresh Hermosillo [facility] APTT 2022-06-12 16:56:00 Naresh Hermosillo [facility] NT PRO BNP 2022-06-12 16:56:00 Naresh Hermosillo [facility] TROPONIN T 2022-06-12 16:56:00 Naresh Hermosillo [facility] Results CBC 2022-06-12 16:56:00 Naresh Hermosillo [facility] MANUAL DIFFERENTIAL 2022-06-12 16:56:00 Naresh Hermosillo [facility] GLUCOSE LEVEL 2022-06-12 16:56:00 Naresh Hermosillo [facility] BLOOD UREA NITROGEN 2022-06-12 16:56:00 Naresh Hermosillo [facility] ELECTROLYTE PANEL 2022-06-12 16:56:00 Naresh Hermosillo [facility] SERUM CREATININE 2022-06-12 16:56:00 Naresh Hermosillo [facility] .GLOMERULAR FILTRATION 2022-06-12 16:56:00 Naresh Herm[facility] CALCIUM LEVEL TOTAL 2022-06-12 16:56:00 [facility] ALBUMIN LEVEL 2022-06-12 16:56:00 Naresh Hermosillo [facility] ALKALINE PHOSPHATASE 2022-06-12 16:56:00 Naresh Hermosillo [facility] ALANINE AMINOTRANSFERASE 2022-06-12 16:56:00 [facility] ASPARTATE AMINOTRANSFERASE 2022-06-12 16:56:00 Naresh Hermosillo [facility] TOTAL PROTEIN 2022-06-12 16:56:00 Naresh Hermosillo [facility] FRACTIONATED BILIRUBIN 2022-06-12 16:56:00 Naresh Hermosillo [facility] OSI CT SFT TISS NECK 2022-06-05 02:07:00 Naresh Hermosillo [facility] OSI MRI SPINE THORACIC 2022-06-02 09:48:00 Naresh Hermosillo [facility] OSI MRI SPINE LUMBAR 2022-01-06 03:07:00 Naresh Hermosillo [facility] Plan of Care Planned Activity Planned Date Details Comments Source Future Scheduled 2023-06-[address] [facility] Test 00:00:00 Counseling and Medical Cente r Screening (12+) [code = Tobacco Cessation Counseling and Screening (12+)] Future Scheduled 2022-10-14 COVID-19 Vaccination [facility] Test 13:17:37 (#1) [code = COVID-19 And anjel Cancer Vaccination (#1)] Center Future Scheduled 2022-07-02 INFLUENZA VACCINE (#1) [facility] 00:00:00 [code = INFLUENZA Medical Ce nter VACCINE (#1)] Future Scheduled 2022-06-24 Screening for [facility] of Test 17:15:51 malignant neoplasm of Medici ne colon (procedure) [code = 179230815] Future Scheduled 2022-06-24 Screening for [facility] Test 17:15:51 malignant neoplasm of Medici ne breast (procedure) [code = 454284429] Future Scheduled 2022-06-24 COVID-19 Vaccine (#1) Ba [facility] of Test 17:15:51 [code = COVID-19 Medicine Vaccine (#1)] Future Scheduled 2022-06-24 Pneumococcal 65+ (1 - Ba [facility] of Test 17:15:51 PCV) [code = Medicine Pneumococcal 65+ (1 - PCV)] Future Scheduled 2022-06-24 TETANUS SHOT (ADULT) [facility] of Test 17:15:51 [code = TETANUS SHOT Medicin e (ADULT)] Future Scheduled 2022-06-24 Diabetic foot [facility] of Test 17:15:51 examination Medicine (regime/therapy) [code = 437734568] Future Scheduled 2022-06-24 ANNUAL DIABETIC [facility] C [facility]lege of Test 17:15:51 RETINOPATHY SCREENING Medici ne [code = ANNUAL DIABETIC RETINOPATHY SCREENING] Future Scheduled 2022-06-24 Hepatitis C screening [facility] of Test 17:15:51 (procedure) [code = Medicine 136775995] Future Scheduled 2022-06-24 ZOSTER VACCINE (1 of [facility] of Test 17:15:51 2) [code = ZOSTER Medicine VACCINE (1 of 2)] Future Scheduled 2022-06-24 Screening for [facility] of Test 17:15:51 osteoporosis Medicine (procedure) [code = 999683776] Future Scheduled 2022-06-24 MEDICARE IPPE (WELCOME B [facility] Test 17:15:51 TO MEDICARE) [code = Medicin e MEDICARE IPPE (WELCOME TO MEDICARE)] Future Scheduled 2022-06-24 FLU VACCINE > 6 MONTHS B [facility] of Test 17:15:51 [code = FLU VACCINE > Medici ne 6 MONTHS] Future Scheduled 2022-06-24 FALL SCREEN [code = [facility] of Test 17:15:51 FALL SCREEN] Medicine Future Scheduled 2021-12-02 Medicare IPPE (WELCOME [facility] 00:00:00 TO MEDICARE) [code = Medical Center Medicare IPPE (WELCOME TO MEDICARE)] Future Scheduled 2011 PNEUMOCOCCAL 65+ YRS [facility] Test 00:00:00 (1 - PCV) [code = Medical Ce nter PNEUMOCOCCAL 65+ YRS (1 - PCV)] Future Scheduled 1996 SHINGLES VACCINES ([address] [facility] Test 00:00:00 of 2) [code = SHINGLES Medic al Center VACCINES (1 of 2)] Future Scheduled 1965 DTAP/TDAP/TD [facility]ACCINES [facility] 00:00:00 (1 - Tdap) [code = Medical C enter DTAP/TDAP/TD VACCINES (1 - Tdap)] Future Scheduled 1964 HEPATITIS C [facility]CRE[facility]ING [facility] 00:00:00 [code = HEPATITIS C Medical Center SCREENING] Future Scheduled 1947-04-16 COVID-19 VACCINE (#1) [facility] 00:00:00 [code = COVID-[address] VACCINE (#1)] Future Scheduled [address] [facility] Test 00:00:00 (combo) [code = CT Medical C enter Colonography (combo)] Future Scheduled [address] [facility] Test 00:00:00 malignant neoplasm of Medica l Center colon (procedure) [code = 866048443] Future Scheduled [address] [facility] [facility] Test 00:00:00 malignant neoplasm of Medica l Center colon (procedure) [code = 807357228] Future Scheduled 1946 DXA SCAN [code = DXA [facility] Test 00:00:00 SCAN] Medical Center Future Scheduled [address] [facility] Test 00:00:00 malignant neoplasm of Medica l Center colon (procedure) [code = 639118709] Future Scheduled [address] [facility] [facility] Test 00:00:00 malignant neoplasm of Medica [facility] colon (procedure) [code = 642870520] Future Scheduled 1946 Sigmoidoscopy [code = [facility] 00:00:00 Sigmoidoscopy] Medical Cente r Encounters Start End Encounter Admission Attending Care Care Encounter Source Date/Time Date/Time Type Type Clinicians Facility Department ID 2022-09-09 Outpatient SYSTEM, RICARDO SILVA [id number] 14:33:10 PROVIDER Ezekiel nayak 2022-07-10 Outpatient SYSTEM, RICARDO SILVA [id number] 16:38:30 PROVIDER Ezekieldavon nayak 2021-12-16 Outpatient [facility] [id number] [facility] 14:14:03 [facility] 2022-10-05 2022-10-05 Infusion Wil, 1.2.840.[id number] [facility] 11:00:00 12:43:06 Yvette Preciado 17111.1.1 ity of 3.412.2.7 [place] .3.765151 .8 [facility]-10-[facility] 2022-10-05 Outpatient ZAHIDA DE LA TORRE MDA MDA [id number] 10:02:59 12:43:06 YVETTE nayak 2022-10-05 2022-10-05 Follow-Up Roslyn, 1.2.840.[id number] [facility] 10:00:00 10:00:00 Sanjeev Burns 50535.1.1 ity of 3.412.2.7 [place] .3.410074 .8 Kylie nayak [facility] 2022-10-05 2022-10-05 Outpatient ZAHIDA LONG MDA MDA [id number] 09:01:57 09:50:03 SANJEEV nayak 2022-10-05 2022-10-05 Outpatient ZAHIDA LONG MDA MDA [id number] 08:50:21 08:53:54 SANJEEV nayak 2022-10-05 2022-10-05 Travel 1.2.840.1 1.2.325.389 [id number] Univers 00:00:00 00:00:00 11614.1.1 350.1.13.41 ity of 3.412.2.7 [place].3.698 [place] .3.301253 084.8 MD Bowman [facility] 2022-09-23 2022-09-23 Refrobert De La Torre, 1.2.840.1 [id number] Univers 00:00:00 00:00:00 Yvette P 53923.1.1 ity of 3.412.2.7 [place] .3.141431 MD Bowman [facility] 2022-09-17 2022-09-17 Ancillary Roslyn, 1.2.840.1 [id number] Univers 08:30:00 11:00:00 Procedure Sanjeev Burns 63268.1.1 it y of 3.412.2.7 [place] .3.634370 MD Bowman [facility] 2022-09-17 2022-09-17 Outpatient ROSLYN, [facility] [id number] 08:27:15 08:27:15 SANJEEV knox 2022-09-17 2022-09-17 Travel 1.2.840.1 1.2.155.391 [id number] Univers 00:00:00 00:00:00 03571.1.1 350.1.13.41 ity of 3.412.2.7 [place]3.698 [place] .3.127484 084.8 MD Bowman [facility] 2022-09-16 2022-09-16 Ancillary Alex, 1.2.840.1 [id number] Univers 21:10:00 21:15:00 Procedure Naresh 58847.1.1 it y of 3.412.2.7 [place] .3.554013 MD Bowman [facility] 2022-09-16 2022-09-16 Ancillary Alex, 1.2.840.1 [id number] Univers 21:05:00 21:10:00 Procedure Naresh 90186.1.1 it y of 3.412.2.7 [place] .3.762413 MD Bowman [facility] 2022-09-16 2022-09-16 Outpatient ZAHIDA HERMOSILLO MDA MDA [id number] 21:01:58 21:01:58 NARESH Ezekiel o malini 2022-09-16 2022-09-16 Outpatient ZAHIDA HERMOSILLO MDA MDA [id number] 21:01:54 21:01:54 NARESH Ezekiel abilio nayak 2022-09-11 2022-09-11 Renny De La Torre, 1.2.840.1 [id number] Univers 00:00:00 00:00:00 Only Yvette P 35870.1.1 ity of 3.412.2.7 [place] .3.489162 MD Sandoval8 [facility] 2022-09-08 2022-09-08 Siomara Oro 1.2.840.1 [id number] Univers 00:00:00 00:00:00 Only Misa 07749.1.1 ity of 3.412.2.7 [place] .3.494395 MD Sandoval8 [facility] 2022-09-08 2022-09-08 Renny Long 1.2.840.1 [id number] Univers 00:00:00 00:00:00 Only Sanjeev A 41177.1.1 ity of 3.412.2.7 [place] .3.660623 MD Sandoval8 [facility] 2022-09-04 2022-09-04 Renny De La Torre 1.2.840.1 [id number] Univers 00:00:00 00:00:00 Only Yvette P 58216.1.1 ity of 3.412.2.7 [place] .3.922600 MD Sandoval8 [facility] 2022-09-03 2022-09-03 Outpatient ZAHIDA DE LA TORRE MDA MDA [id number] 12:11:29 13:30:10 YVETTE nayak 2022-09-03 2022-09-03 Outpatient ZAHIDA LONG MDA MDA [id number] 11:56:39 12:01:20 SANJEEV Falcon abilio nayak 2022-09-03 2022-09-03 Office Darrellolegtre, 1.2.840.[id number] [facility] 11:00:00 11:40:00 Visit Sanjeev Burns 49740.1.1 ity of 3.412.2.7 [place] .3.550693 .8 [facility] 2022-09-03 2022-09-03 Outpatient ZAHIDA LONG, [facility] [id number] 10:11:13 10:11:13 SANJEEV Falcon abilio nayak 2022-09-03 2022-09-03 Orders Roslyn, 1.2.840.[id number] [facility] 00:00:00 00:00:00 Only Sanjeev Burns 61793.1.1 ity of 3.412.2.7 [place] .3.480027 .8 [facility] 2022-09-03 2022-09-03 Travel 1.2.840.1 1.2.829.[id number] [facility] 00:00:00 00:00:00 89096.1.1 350.1.13.41 ity of 3.412.2.7 [place].698 [place].5068[place] 084.8 .8 [facility] 2022-06-26 2022-06-26 Outpatient [facility] [id number] [facility] 09:19:00 23:59:00 Nicki 2022-06-26 2022-06-26 [facility] [id number] [facility] 09:19:00 15:30:00 Encounter Kristi [facility] 2022-06-26 2022-06-26 Outpatient [facility] Surgery [id number] [facility] 09:19:00 15:30:00 KRISTI 2022-06-26 2022-06-26 Anesthesia Roel Estrella [facility] [id number] [facility] 11:13:00 13:14:00 Event KatiaOmar [facility] 2022-06-26 2022-06-26 Surgery Jose, [facility] [id number] 10:00:00 12:14:00 [facility] 2022-06-18 2022-06-18 Outpatient ZAHIDA QUIROZ [facility] [id number] [facility] 14:23:32 23:59:00 2022-06-18 2022-06-18 [facility] [id number] 13:45:00 23:59:00 [facility] 2022-06-18 2022-06-18 Office ROSETTA CLIFTON 1.2.840.114 [id number] [facility] 08:57:48 13:08:43 Visit [facility] 350.1.13.21 College Y 0.2.7.2.686 of [id number] Medi radha 810 e 2022-06-18 2022-06-18 Travel [facility] [id number] [facility] 00:00:00 00:00:00 [facility] 2022-06-16 2022-06-16 Outpatient EL ALEX [facility] [id number] 04:29:56 04:29:56 NARESH nayak 2022-06-16 2022-06-16 Ancillary Alex, 1.2.840.[id number] [facility] 03:50:00 03:55:00 Procedure Naresh 39914.1.1 it y of 3.412.2.7 [place] .3.566228 .8 [facility] 2022-06-13 2022-06-13 Telephone Pastor, 1.2.840.[id number] [facility] 00:00:00 00:00:00 Melvina Benavides 83632.1.1 ity of 3.412.2.7 [place] .3.496687 MD Bowman [facility] 2022-06-12 2022-06-12 Emergency Alao, 1.2.840.[id number] [facility] 11:16:00 19:36:00 Gena Jimenez 42179.1.1 i ty of 3.412.2.7 [place] .3.785875 .8 [facility] 2022-06-12 2022-06-12 Emergency UR RICARDO FREITAS Emergency [id number] 11:16:00 19:36:00 GENA Hima so n 2020-09-17 2020-09-17 Telephone Provider, [facility] 1.2.840.114 [id number] 00:00:00 00:00:00 [facility] 350.1.13.10 [facility] [place] 4.2.7.2.686 Professio [phone] [place] [address] Office Building [facility] 2020-09-17 2020-09-17 Telephone Provider, [facility] 1.2.840.114 [id number] Univers 00:00:00 00:00:00 [facility] 350.1.13.10 ity of Care [place] 4.2.7.2.686 Patrick as Professio [phone] [address] Office Building [facility] 2020-09-16 2020-09-16 Laboratory Lab, [facility] 1.2.840.114 [id number] 13:20:22 13:28:58 Only Fam Pob I Health 350.1.13.10 [place] 4.2.7.2.686 Professio [phone] [place] [address] Office Building [facility] 2020-09-16 2020-09-16 Laboratory Lab, [facility] Fam Pob I [facility] 1.2. 840.114 [id number] Univers 13:20:22 13:28:58 Only Kt [facility] 350.1.13.10 ity of [place] 4.2.7.2.686 Patrick as Professio [phone] [address] Office Building [facility] 2020-09-16 2020-09-16 Outpatient R NED [facility] [id number] Univers 13:20:00 13:20:00 KT ity of [facility] [place] 2020-09-16 2020-09-16 Letter Doctor ARROYO 1.2.840.114 [id number] Univers 00:00:00 00:00:00 (Out) Unassigned, MEREDITH 350.1.13.10 ity of [place] [facility] 4.2.7.2.686 Patrick as [phone] [facility] 044 Branch Results Test Description Test Time Test Comments Results Result Comments Source POC Glucose Screen 2022-09-17 15:05:00 Test Item Value Reference Range Interpretation Comme nts POC Glucose (test code = 5651) 121 mg/dL 70-99 H Capillary blood samples, e.g. obtained by cindy pablo, may have inaccurate results in patients with d ecreased peripheral bloo d flow. Method description: Al l results are measured using Electrochemistry test methodolog y. The glucose in the sample m ixes with the reagents on the test strip. The reaction produc es an electric current. The am ount of current produced is pro portional to the glucose concent ration in the blood. PO Sample Type (test code = BLOOD 9554) Performing Lab (test code = [place] [address]) [place] MD Falcon [address] [address], Point of Care Leader Tier: Radha harris MD Lab Interpretation (test code Abnormal = 65116-1) [facility] by [facility] 2022-07-14 14:04:03 Test Item Value Reference Range Interpretation Comments Case Report (test code = Medical Cytology 104) Report Case: [id number] Authorizing Provider: Kristi Clifton MD Collected: 06/26/2022 01:06 PM Ordering Location: [facility] Received: 06/26/2022 01:29 PM PERIOPERATIVE SERVICES Pathologist: Theo Thacker MD Specimen: Lymph Node, Lower Paratracheal, Right, Station 4R ADDENDUM 2 (test code = d3oawJHpVVRkqYD3NgLbF 3382) VSaa4nof7OypZAseVAqMH uqhEXcgpQvex71eOQ4dP5 8BO1jQGZzDjR4SCPsxmA2 Yoo3HZGfBWXkyRWxF152x 5hke9ydtdHrjAQ9fTteWS ZompanGxW8SWhtNEGxtcc hFLc6VJnzXHZsoJJ1DGGc dZDtE4JeSUWwIU4txtx5V CH8ZYazTSZuVpF5FAVssR EbKMAwtOkvEOsof001BLD 6RfWlZUBlodCdzVtlpU5c IsZsNKJKBOABA46xWr2NU EFEREVORFVNOiBUTyBSRV BPUlQgUkVTVUxUUyBPRiB YBTVxQTSBI4dniYTdOMOc ciBSRVNVTFRTOiBORUdBV ElWRVxwYXJccGFyIEludG HgcOIudYV7sD4sMtgpLSY pWKLYUxRPzHpyGHgwJ515 Z6njaLQ5AEUeKUsyBCVvO 4GNZStyA5lcjpVqzj4VaG NsZXVzOiAxLjhccGFyIEh HQgWgL9BYOZkaZ0jyvnVm IFJhdGlvOiAxLjFccGFyX KTghjGScFSyv6Qdu8UwSY G7fWTraJAxN9EdQD2qILC zFuEjI2Ipv40eO0ZzpeWc h9P8IJJzcrUyo00iuCO6S SBpbnRlcnByZXRhdGlvbi 5ccGFyfQ== ADDENDUM (test code = x0hcxOJkMJJxaSP4BwGcO 3381) HFat1pku5IevCJjgOLrDK aupIGrvmVbsa82yFU1qS5 3WH8pSRAiXcB4UTMcvkI1 Gup8BTWnUOYmbBSeN448f 8ehx4karrXsbIL8CPEkYG YgI8MqNX1qPQIlcLImN64 alIOpLMO9IXRfVFYnkYZj MAZzUXB1OUQjgGAmC7moT EMvIL7oxlaoVOhmRWxfGN CstTE8PLPqdWWfX1VjNGD dSYarRVLnegg9ZwRgWt5i dGVyeTcyMFxwYXJkXHBsY EtsWGBuBwMyZ7WgZKFeZP RjqdZhc7BcKBBpJN0evJ3 4NNVfEFHkyL6ibRZeSHZ1 nLFxCA2gNAImg28kxaiwh iBzdHVkaWVzLlxwYXJccG KtPODLD34NEboMUbOwNMG FQe7ZRNVQUT6LNYIJL6QX L23aQUIikRUoRZLBRQMBB 3OVSVOGJ2QNVK2BDkXUB8 NJVElWRVxwYXIgUHJvcG9 baLbcrlBgW49zCBsmSK47 XHBhciBJbnRlbnNpdHkgc 9ElahB4TVEuK1plKFYqC2 VYYYUFBHchGevuTSRQD5H JTDrJLBctY1SSA18YAThY LSRJR9dBZEFtzOCdANTta mRcdHgxODMwXHRhYlxwYX SfuBPuKCBXTw8BWFBQFII DOeYbAkWAUPVWA8Y5MN0M X3WRHAZSRUVjcbKWes4nz 2N6gP8yHFPcb5FaXhMdGr KgqKNjOQjtqXYbo1l0qXA uE87hFPbzON1cMCUbpeYJ WR8RIVYJUiU1AAQoOX1IH HNQPpIfBTeHXPghOP9ZOL 5TSVRZXHBhclxwYXIgSEV LBCHwN2WZIg1FULXLTAPN SZ6OBwLBWEHNIy2EGGhfK GQOC3DBEeSdVczplSIiAK BlbmRpbmcgSEVSMiBGSVN DHPXbURTfteU8bXJrSULg wzYguI2vUn2kyI69HGSfu lxwYXJccGFyIENBUCBSRU xKIONZKA0QEfUnfhFCJNY ZCI9ZFDAJUPElDi1HJUOL Z70ACvhOAkTpGGECFGNSH NHQINylBGNjM52jgKUbyN hfogNpLOItCHBbIVO9mA6 iSuSaAI3pCs5jAGFfHoHc VvN1XYzXY9mtTSUbILweB 6CaFKujUKThgFY5qZMsHN EsjEDeDL3bMSNxrZC4OHW 7XhM6NlJcOaY8MHJ4CFUx VDLZNIEfoqCAZN8jauMlQ FLvp72xSe1pvAMglI7tHE V6IBMycnVptEhzMZkxWRg vMjcvMjAyMjsgMDQwMCBI UlNccGFyXHBhciBNZXRob 4WskH8seRqyzXFdXCMezW H0zY3qKZM9sKVeQR5hWRo kvsn4sYhtzFpmn9NtUNxu cyBmaXhlZCBpbiAxMCUgb kO6fGOgsSWweKEmURIvVJ Oor5EbFYxzkrAkp6RzAWZ nnS1tsVRrAM7nYYH0KJkk DKK7XFUrcT59lrLyOY6nF V5yIGqztbvrfaM7lINpDD cyIGhvdXJzLlxwYXJccGF nRTUrtIbae3U7YEGrRNBU z0VmgFOFYHVbw9RndR8ix DdgOH47xSJjQYmbzlYuz6 IgRVIsIFBnUiwgSGVyMiB jijEtL5y9JkW9BJQfQOMm y8Nzi3ErACBcuQ1cWKZgr 25lcyBTUDEsIDFFMiwgNE I5RCmXJQTtKRDsno92EEA jZsLdhFDwUZSJNMAma7G2 KSBhbmQgMzAtOSByZXNwZ UJ3vZVogEradBKxsGm2zM 3pYWUhZQW4tGRzDQXoOLt iBE9hxgBwc2FtKVFEKhJE CYEwH7Hnl41aF7d8OWEpm 21oBcJqlBZuUMALfTNor5 4sIEFaLlxwYXJccGFyIEN jskGki8hqE8mdJSKbXOA7 GA0mnhTcIfPJmn3bi5ZsZ RKhif14keHAUtqbWBUmBU jDHmIkAQ8iBSleHrhikN8 fmLYbdgVrA51zhMKxjSDs l8PmJDSbbzCroSY3PRDtX Qoofvuuz4y1zUZ6AQH6EQ Fqo2P1BE3fXUevx3SkU42 udHJvbCBzbGlkZXMgcnVu DYWcd09ik5efVFWtRkP9z CMrlBU1nVFvaMWla7AajZ gvFDSei7jmESOkfd3jqxd rtVAnn3ThwU5ncftjCYGi bjvjZPOgFN46LPJbjwT4x XZlIENyaXRlcmlhOiBUaG Fur9SdgS0bvmiqbrJoqDr 8umOygxEeIOQnh9YhoL7g UUZqWSEaTBOKI6FXG6YDT CBndWlkZWxpbmVzIGZvci BBXSWkABilQINnD19nJbX yLCOdVNrdnD2ujnSrKQBB IJMIhWdmh59yXYdRHSYgy DKaxW1xCYVHGXNlQKPkfE uzClYqqhNSvzKvi8RsJ4F eR2YkMaAJF8EAZ0ATVGFQ i1R5j5TsDBQnQKO4IM6tR HAgkTQIGCEck3duSREgSX 3bMA1fSyLjTVdmDLBoSEZ sZjSrEiCeZSL6Qa4jMP4h MsJzJzS2KXpyXNHcKV0rI RY2OKJ6HPVaH8EyGYGaKZ WXGi4VOrWtq2ByYCFlhMu nf28dR7dpWUgmgM9evqDz ZKMNVPXKw5vtUES3HQ8cH JW5KWVzRfCYYrYrfnBaDN IgVGVzdGluZyBpbiBCcmV sz4ArY8QoM0XfVuGYW2RS U4PFHBPXmGjtOJorkpRyT OPzWZQgPlCJJJJcwW4uH3 8vp6feQADlXwT1JvqeHGF zIqIqLVCsIZF8Ve2lCI1b JoIdZeYkNRMkJqLZSgZ6O cGtTnC8WT6mvVEtOJCquy YDpHGQD6FDE4WEBROtiMl kZWxpbmVzLCBFUiBhbmQg PXJsHMC5AhEkMPonMFUqi 3ZfnLu0SZi0WYMnHZAlWa x1CBVtcXJiecDoMOloTCN 3WAIkd7ZtEJV1DXgyaR3e MYJjfSRqk3UvR7TavQTjv 5oip8sqGpZfeKQiLBKuBG U9BSlfyP3iYpCUlF5peiK kgB77qH8sDCZgXR6rEEIl ZLW9hU1oINRypXjoYRD8P JmmuM8uZLPkjtPQZqUycr UgZGVzaWduYXRlZCAiRVI zRM23SVAsk3k0bLGaXf1t cGFyXHBhciBIRVIgMiBuZ FXhQNS4XxHiLJnaFZNdf8 JeqLy1DDz7JSFeMPAeFwh 0ICgzKykgcmVxdWlyZXMg U7niS7CcNiZmRD82qVFdO J3lsZXaMB1mKGJ9UKxeqI 1rVTFuKULczHGxD53nlRq xnJStXU4kRQbjsBTeo5Uv b2d5fWtsSF3gykFuoCpgb zNhEYDwj1RcyMnyFDqiwu HveRPaKCB5yB8aMXCshMz zLiBIRVIgMiBuZXUgImVx gVj2n3YabKGhWEShPPUrI MY5eQWtztDzd83doWH5BH VhMF9driEyUYNhlNWgjni hXcF7dRR8OEvsCKoqTSya BeXqa4WfycU5HSl1YGoer DVkx9OhwT8fBxFjUWBmNk ExfpHsy1n3ICL2nF3bncR uEXevdp8gVDJBZNYybwW6 EOSzGBsskVj8KWMzVNGvB EZhNNC2nPJvmdKuvxSgfS BsZXRlLCBmYWludCBtZW1 icmFuZSBzdGFpbmluZyBp Charity+DLZhPI3sDVsdwyGlw WTfQWX9sI4oBBEyrVwlYY FuZCBIRVIgMiBuZXUgIm5 rY8B1pRVgJtFqRLadavVz zFxdOHQbgn2cv4JbmD9mi rgnq3TjGjEfwyRejI4jr0 4woUI5RHYqLK1smbWkQIX joUCoygwkNjHdagN2ZKEj OCNfl8MsbY29DLNrczXxf CAfq4ZzA1IfsNKzQDGquf vhHJRrBQipNNGHY1GJEIM ac1IasjRwz61lZ6QgfpTp gO6soDJvaCXtTJEnATKrb d7hc4N6tI7uKJ4bTWNhp5 d7wRTkCIJ4DBcggE7oOFU 2wM2fTUGegZrtODgfOD7s rm8zDBvgUSJ9AZBrAQSvI hErOF0aSB7bTYNoET8uUG kfAvF4RN7sIsVsCAUbVay vKWX2EX2sOdJfUh5cEyC5 PvFsRnXeLvBBwNHfcO11P M6dkWK5QVRaj5PxPBdgVQ ezIGTkumK5yJPfWNZsbmM cVRMnpeXplvGlyNxfv9Nq gX7prOEwxiBiq8EnxY4ca bacpUHlf3QvY5IsiUDxKC MhYDFhb01yTvYoJC5bl7U vmpdlVgE1BYepaZIkwBAt aSG9EGpfHzF1BCN8yq7tA jvzBJKnhjI7lULsxIRiwY 9zZSBvZiBkZWZpbmluZyA dlH1siSYtyoLmQBH4tKLr lWSybV8mcQqxkcWfvbYos E57EO0tuFA6ZKXlr1Rtzz P9GVPrOTWyUNVuUZNrAR8 idGFpbiBhIHRvdGFsIHNj s5GoAGzhOA7rHULcTCdtO iBFUiBhbmQgUGdSICJwb3 BgfUq2GUHgDZGrxJHwODU ne2ZwDV2nBCS3AQBaJBYa BpdrZVNirQ1ra7Q4AUgyg bSwu8WwAPguoUpcYkWCMF MidZ86EYxfx4JiyhThADi osKszL6ujasaoBOvcn8G7 A42tCNVzdcVvAITpJL65r sPkDXNnsAJsloojsJ4xfI 5rDPgziSmrdqLruBRat9R fCzYUy5Kxju1pGZN3kP3q IDRpGzG1SKbqUPh2MXbgY cFJbYavSE3jM53oNNQ0Bi D9TeYuMBD1RHl4TArrxYY XNPUbpdZlbeP8KUqrSQZv JKLeHTR1KJUyHMFqbNJTF M1bRMFsQfVjOYGxKSJ0UT c7ZtRtQsunYtP0TmZhBTt gMjAwMikuXHBhclxwYXIg GB5zqM1itKrodF3vpUAes AW7xfodl7UlDQGpksUqgf 1lZCBvbiBwYXJhZmZpbiB fSLV8qE2tmmWoz4FnaWlv UKSxZ4JyacVxlHzpwHXqP hMPqBQarF0acZ7fr8SgvN 0nbegyl5oggqEfbeO7DXC lMXA5aVYcp3BgAJEvxiCg V07tWEDzzcZhvvVtRJ33n K7wAMVzZJGds8TwaAB0OL KpfCKuyQ6uqCrknrGbsxL uyT28LQ4bkFK2FV1lQUHt p7j4eXTuJIO1wP5uQEEvo TmnVeJAeKBww8AydEG5XF Oed0RvkAi3ZYBjvkLabiK yJJBigzYiV87brKLrsWZv q6VrSVDzwbCtoVVyMQZcd jF9zNQkRKAyuDQyeEfbrz 7ujMCqKUJztjVJlN81ku6 myKN7k4UyYA8wi7QoyLO6 ZWNobmljYWwgdGVzdGluZ xA8GSXlrDLeMs4wdRAaOM J5BCZxrThmiwOCcB0iDIO aTRiiTY2cBZkpRHwjT5Kf bYBrIJDFTDCpk5vhV7ixL ZIgp0YvtQ5wsDV8xZLcAN VepZF9XFOiZWK9XPrxmZB hISNnJHFwiYCtkGDuNw7q hMKfF9ZqT4gtwzPrqTJmi US7iVEfHGjundVyBWJ0NK GqxL0wEV2xOKNxvLZnSA2 vdCBiZWVuIGNsZWFyZWQg c1DtNFQfww78FZCqYtmbr NfsZFUoLg6dFa8dMZSyji NfQQO1UtCYUI3gspjxaIS qkSakht4oFXdyFJQONZFr GMOiLEI7DVAwcL9uOCW8j QX7GQS5D2rhX1dgDGFubs YeFN6kZVXkyGFhnfHwCTd tFS6xtPGeBTVpj9Eduyss IODhYNL0KEE1UCkiZZUhG ODfPr3pQPMoyZ9lP7VeTH A8luBwm2OzBvGUaTDldB0 4cPOhqx28VPLxGTDcF0Nx ZGVkIGFzIGludmVzdGlnY LXev33laSNqvvMdj3Iqgi XzKVKwC4vzPOFlqIIltIZ hw5ZtkZ8mbUKttsJkNQA5 wUHiKSYriE6xEZKqxCdmV TKcbH6eE9GvQYhgPs3mGF XilqumBO7zfl98VZ1kmkB yZM4fphAmRI37gwZaQfOe AJb7LVsKNWpCIMf1UPLwc sIvqYHeqEXiTRCsjC1eqA IqMp5beNDjxYpoJKPiuMT rXZcnyHvhS2pagbejPUum rPGbw8YsiB7zsKN8OVG2t G6cLvirDBLoiSQdBSCga3 K4FSRozZ7qvniwGZXjy1P hrU1uEIV9mFPsCVSuf0Fh xul2VXPbWQGznl0= DIAGNOSIS (test code = v9ekiJTkTMMgc3ceXPXhx 3220) GFuZzEwMzNcZnRuYmpcdW MxIHtccnRmMVxlcGljOTY xQevqqnRwIYNuoYIoB7Hl krevQKsbZA5gYT3xaCsey XLppQIqTBDfHlLsw7qsg9 17iDOzq1ovCLEIrkgqjBy 0iGdkL86jx2F1WmujG10f iXBrGSK3KYSuIAIxpVPzX GTjYPJ1DGCzqJVcX3muGK LoAG6isapdDFvmZOkuTFG jmYW5OHQrwLWmN1HaCPVe BNrnUDRjlrb9PvKxKh9ys GVyeTcyMFxwYXJkXHBsYW luXGZzMjAgTFlNUEggTk9 XNSqoIB1JVQYyVROQKLXX QUNIRUFMLCBSSUdIVCwgU 4BFALnGNsC4SeTYEyEOYS ZOQSBCWSBDTElOSUNJQU4 gKERJUkVDVCBTTUVBUlMg OZ5JJAYRODhmIzmFE0mnB 0YgQVNQSVJBVEUpOiBccG MgEVQvJP2dKOJBTDWAOTC CAgIHXOLXGV2GVOLvP89B UEFUSUJMRSBXSVRIIEJSR UFTVCBQUklNQVJZIChTRU GpT99YSDZIOHcjhMUvwDz qniCqGLisy2ZfWXswPVBi IT6msTowHACjUQ5rKCSyM 6bhdZ2ybyd2UiGmGKRzDr T3PVHbgvX5Gwp8YMXoAPk se4tds4JlRYTxECr8eVtl UtPlYQClx3lrtyWuCcHsH ODzKQNaLRRndUPzQ490u7 txw4kqxoCjzUT3ZAYxYUK 7CVxvlsLtoxJ6HZpvjTXa KlM0PCzehcFxPUapyfWnw mSeKkr5JHFpG864BSS2nV hqp8uzQIJ3IKVmGTYiKuI dZg5xqILuM509BVXtFJJA XLYkbTu5BVYvppPofiJmr QHHh518K824o2ceAOLrdo HswVbJblxyl8xsZ694OGQ hcGVydzEyMjQwXHBhcGVy rLY8CRLnJJ4pwdlmUQgrF QmvSXUxuyO4CPYskMCiY6 MiWBJeEC6aksocUXX6OTx eWCKiLHX4JhRtRDHfl4Up mho0GjUqdt1ldg90VYH0e 9VriTitZCC4KJH2ShSxIy 0ifWPfPCJhZL9vKbYbiPR mZSWlqi84jYguNZtdGER9 FKKenlKog4Mwx1zvGaXda bGtQ9ppV6LhNPZeXQLwDR KzHiNngaHux3Jqp3GrjOC kiWf2s5vbIMTaTLHxjDje w6faXIZ9HHRsjPNaW5put W0iVRNvMJ5algxle3lcJX pkCSjzNNKgtOC1wsM8XUL ueFGmT1XqmE3tRTLmVBlr SBEnzyp0RhNmRc5liGRgx TcyMFxzYmtwYWdlXHBnbm NvbnRccGduZGVjXHBsYWl uXHBsYWluXGYwXGZzMjRc cWxcbGFuZzEwMzNcaGlja FxmMVxkYmNoXGYxXGxvY2 anTyZbSfOgNrl0YVBnrFD fAOXpTgo1NFUgfEUyYRWP qSzesB7kEWZonCexaL2nl TB0EJCyfzKjoMFHnQ9qYP SMxO6iSeO4HmFmXvU8XSg 5QcYlbCHwxH0= COMMENT (test code = w9qzaVPeLODckDU8CrJwM 3359) WAqv2vwk9NrwDGshMOaAE sweADfakBtbw14eST0vF2 6UA3yBIUgCwD2HTCzmpA6 Qjf4XOFeVGBveNAwY499p 4azh8oycvUacQI3jIvtAO TludwjHuL1KFotDXSsaky eUBu8FJpwEENkaYK2MJSk aDCmY1FyOKDcIL0swgs7X UQ8TPjmQGWzQeA5DVSogR XeHYAmvXnzUTkav325PLT 2YaEhMHEqqlRmxYwhlC4q ZnMyMCBUaGUgbWFsaWduY A38QIMxbMdpCIXnTYPaOV FhNR0ddE2nxKRmtoSeoRO nst6jf83aYFK9hTJeJKOc e4K2AZFznzE3uDYuO9Jns ONoqX7aab5bEp1ktJvdeP jifKJgzVvsr4YhMXvmFIU zWA6fTVOrE0YcYTJ6Ig32 Q60yZYxsZ0kjfzJuYTQxD SBzZWVuLiBUaGlzIGNvdW xoITTohIFpi7QxgQLyCCI vbXBsZXRlbHkgcmVwbGFj LVAulAL1GGH1YPQjBeZsu V5kvGTlu6FoQB9rDNL7yM Ascu6oCBhezQPno5FhJAI fnU1yK2ClVGZuhbWelSE4 kC8rVJlfODGfU28csNGrM RYnQzQVrmFdc1QfWldtiG Crj0VfnzX2pXooEOOhGGH ocV6tfTQmLSooMGKvCKSd HYAaVVZmBqGLgE8nrG4ym qD4HVRmWTFmgaBxfDQhRA KeGEDwANhxIUzcp0UtND0 AWQ1hMGmhGtMjFzAjWUFe DHvjLYYlkTYuhQNvFHX1c hAoxTVxp0RmsU1qFreyCV JccGFyIFBsZWFzZSBhbHN iRXQdVWYbmYUkaYH8kO7t b0o1KAExm5KxUcVfEKVdT DJccGFyXHBhciBJTlRSQU IGMZJDEI6TZdMDGYDNX90 ZOClGVZMRH739HS1fTS7x odKnPPXytjEfIQWcPU6NT GhhcyBzZWVuIHRoZSBjZW htWLVgo2EwCHPvWFFnD7S oGYUbd7x1nWA6mDGcHDmw R65ne2okCqQsdFQbjS== CPT Code(s) (test code = k1xzgUSySVFfxJT4YuKtF 3357) NSwj8xzm9RmoITlmPJeUF dbaHLmgxOsvu09nFT4pR4 9NT6aCDXjQrT1NQXvikX1 Oqk0PDXmRLKjuSVbB621b 6yoo3zaxhVtuOP4xSjmAN IpeyblNwO6LUprKIRlhrb dMNm5BUtiDXRyvPO3NDIb rIUxI2ZzSVTnJK2vzbx1F WN1WGziICEzMuT4KWFzcJ TnFBFvhKqeQHcyc768BDF 7HmOfDJMstoQyoXfkfD5m MqSqHKF2WVH0EknhLMohV zBqPWx4EaA5YMX7PTI1Am wgODgzNDFccGFyfQ== CLINICAL DATA (test code k2punKVsIJLswUQ0PoXcR = 3355) DYav9yqx7FihUNuzMIiGO oxoOPiwlRrcp83bTX7bN0 2YK3oNNVwWaI0SKEadoS0 Kwy3YZIoQRTgwYIgX619w 9lkc6iqcyCnwJE7WOVdCA CjR0KvOQ8lOGOpmDGiT96 rdRXhETR1LJDrOVZcmFBb LZVlMSF8KEVktAUnG4rvU SBeKJ4lpmieVVjdAQzoZN IxaQA4AAVucQNrR7PqDJV gLFhsDBHzhhy6KnBvZn8t dGVyeTcyMFxwYXJkXHBsY WluXGZzMjAgTHltcGhhZG Xuj3EldPf9ZOyrSySkDDM uzZquIE2fB9lpZV2dQADu d45fkCX5UGOdYFLzBDDsj 1Ucv6ZhBRAeQEodXySjHX 1qNNFkHpJaX5HcqVbli5U fYIuauflwjJW1DI8vkuZo b0zrZoRuYEZfkKT6b4H4F O9mZQHwX7b9VHIpZYJxdC NmPS3iYLIzdJ6vZzIvVYI xB6YiDLBilUg+cmlnaHRc eq7fu6AnJ8UgkRqkA5naz M7kOFCeHNJym39juU3gdg AotDXmjN8tKS05yIOnUUn vcnNlbmluZyBiYWNrIHBh nF1vFEBcc5RhU8itYY3IG YS1RuHyHjImj2dsr8IiAZ WrDyRrNCFrm5vdG6cpJQH gxWZtDKFlyE2bTTJxQTR0 iCGlQPCfVTMeuEp8lGMpM 5WfCX3ul7VecRZlzHZ7AE D0RAJbIxLhdBRcJZIzVF0 tUEAft7WuaHh5NHZoo1Le prLhyf9ppJCsfZ2ospDzz pXTCbqrMTnjSGU1JTEjlA YzHT6myWVkQEVbfW2lNJK tfXKddKIpiKQysMY0amRh ZNTbIwZvzM1gDVQnznsyv mdlZCBMTiBuZWFyIGFvcn RpYyBhcmNoLiBccGFyfQ= = SPECIMEN SOURCE (test r5smpTCnBWTwkNE8HsXiY code = 3377) BLip4lwv4UreBLmeRCiIF tskXEgpzBnhf85tUR9eU0 4NT9qYZRjDyM7ZOOuuwS0 Jsd6TYQlLVOddMTtN107r 9wdk3skczWjlRE6fBaeXW BlixfhHdE3NVonCAUkluu oQAu4SYuzDNJqpAR4EHVl gCUdO7InCGMxLB9lbtj1C VU2SSquUGNgZqR3NGDpwY GbXRDpuFzzXGjbx346LAP 5RjIiJGRlztRxyJugzF8i QrYdLYVYHW6CHMXXW8TRI UYHK6pEGqPQDLETBSAJH0 kIRWznXWCZD0hWPHWOMFZ MZJ5SZXIURFDOXKGjHg2O XHBhcn0= GROSS DESCRIPTION (test k8mjdVBdDMAsfEMQQICeM code = [id number]) 8zvzlGuPQGzxXDzP5Adwb wdQUqaDG4dZB0fxCjboOY idJZmNG2ZSGJaVxVqDQTa cGVydzEyMjQwXHBhcGVya GN6XBObMZ5dlbasUIupVA goRBLcotF8HLAarRCwO5A lFJWoHC5ikasdNWY8WRgt qZ0aowLSImptWu7wkFFlo HtcZjFcZmNoYXJzZXQwXG CmuRbdYYSfTFa4jG4YRys kUQE1RUOZExlfAUAdJC2Q k1wgSXWnwLGyWXC1HEbbn EHsNVRyDKQzOVj5CZXeJR hwnLDmRS2cfKzpCgiszFw or9QzeXIdAGgsIUNhKLZy RQjmGOGnLI1YYdMkHLN6S YB7WNFeUWp0BYo9YL3ZFl RiPZSzCFe8HRv1BCGmMBg 2YQtoJC6WGYMdSDp9SBAs TdM6LWV0BYXrTATeIiMgB GYgQXJpYWwgXFxmbCBcXG 6oaXbtqTErjvVXHgUDdC7 nrSAPm2JmJSQEr3bnrlBW XHKivYEnU6vsPHwjBVErV 5p6EPDAkSF7vZ0sTAAIAs edKONtSJjuWCMgC48eu2S Lw4QkOJ8GMRl1rtHnfphm fG0yPRUuzcLsAUfxtRVfG 2hcZnMyMCBSZWNlaXZlZC FoIIWynTVvqX7dU3n1s6O jB6mlbgMyIJAaSXTwEOJa cmVjdCBzbWVhciBzbGlkZ ZE4ZXRzHTUvogMqCNVqlS wrVceaM2fdSUNrAMLcQ8A csAGsuT0qmoFppSEoTNMh cL2rXj4ggRIjcH1wXEDbV zowMCBwbSwgMDgvMjYvMj DwUsrxJL4XDKAsPXygRHB ooVXHPYW0FW1jXYqkwJEe pydkRMReC2HmZ8GcvtRqw HQySAUkygTjt5odDWH6ZH NsbXVsdDBcZnMxNlxwYXJ 9IBkkm0jxQQU5XPMamYLz dDAgDQpcZnMxNntcZXBpY 6SbQ5EyadG2NNr6 INTRAPROCEDURAL ADEQUACY p8nfdEBsGVEknAB6CgBcQ (test code = 3370) XNsg5aaq5XxfVQxjOKjQX nmhLLgsvUqat98wAX1xX4 8AQ7eFNSnYjL4EYTxfsN8 Uyi5OLZjRKHaoYFuM734e 4mvr4shoaJpqLA5jDmhJB XizvteDbP7OPrsGNEyubo mMPh6CMneGFBplLL4WXOm fXEqO0MpDNCmLD2kcrf3J FZ8QVdnIJIeIuD5NQLyxK ChDKAwsTmdRUzwp234IMN 2AfZdMACvfcEfiYdysV0u ZnMyMCBJTkFERVFVQVRFL ZZZZdMDPY0EVR4FEKUGGx GAIwKGSY1XNePAHIVOGLK FPQNNR2SVMSULKYxQSBAw BXX9RQZrRB6qHUTYBKmmI XJ9 MICROSCOPIC DESCRIPTION j3ofwIOlGHYrsDY4SwOxR (test code = 3371) NTai1yce3EhjEZsiQZeXH bmvYInhxNvnn57iHF2mF1 6EG6sHTEsYfM7XNTghkB6 Gwn9LWMgEHKvhFVpT966a 5jbw3kpekUfbTZ1tHvjWB BqotanSfW7XUglLXPgrnn vLWd7TXcaBDTfxGQ8GBMo dMYhW5NkKZCdZS3ftzi1K PN8XFbnJJBiUpR9PBYpzB LsSUNdtHwiRGnrc687SAY 1DwGoBTDueyVkfShfwU7s YvQiQAAQRZUzv8MkLFQoY FxwYXJ9 SPECIAL STUDIES (test r4vryZCnJLMdlDJ5HyKuK code = 3376) AZet2kdc4BisFYowUMtBC kjyCRppeCwgb12sPP7qR0 3EX9cCGSqYbM9KTWfbfA6 Ise0AWPfPIPueAMtP881O JAvVFCodDzdevr7sX94TB TzjD4jvELzRWwdrzEkNWt bsbNuvjWvAtb2QDH7yVaz YRWgkmwzOyK7JMjrMSKze lpyGRx8DZgeIVQqeYJ4VR MwsCBbD1LdANDnYK6fyqc 1TKQ5FFjfJCYhBoL6VAWl iIYbGSIrrEezUHyjp075E YA3PtTwHFTiulRbuUsigY 5cZjFcZnMyMlxjZjEgVGh kGZruaXNmuKYobOF7jI9d UZ7lRUMowQKnN8FrUMXaz zYelKTjYYS3aUEtwUNeXG 4lEJxzvVMuw9rry3VnO0p gvThjjWA4QW7qNYAbMDFy BLkkt0MqpB7sAfxtBXFeI 2WGXDGdHOJai2n0rQPcSS BzdHJvbmdccGFyIFRURjE zDP3hU3G3oEMjJCYxekPI AcrknH9bdNAbofIuuKWiD OJsirFqf4mtH9nsKOTsWM I3FO8kmcPsEkMaKF6maV4 3c6Jgq58az90ruN1ugYDf rzJnB49wvHYcvATyl2NnJ QFcwyPxrIF9DWJqMTfxuy xlh7w3tXL3qPHwzJAguML 0aXNzdWUuICBUaGVzZSBj b552ta2dRBJlpODfnxBie J2tOWdiurjikTMqZU9dEW PqCCVuGJIxPS71jmOzZI6 dqIDze2urdrVxoVMlm0Bv cHD4RNTzyUJqtlndMu1mF S44YCWjUBetgI8zoECiyu BaIF3fLG4zN0H3wZMhYWC duzTfc1uwBKveMK0tQCDx aWxhYmxlIGFyZSBldmFsd HF9SUWmfTFnNGNexMWuXO barTKoi4woz1BbJ1sctRl owCN0GZOwK6rjmEYsxMW6 WDF6nW3lKWbeklAmGQWzn 7CkLORwVWHoJbR2wZ4zWZ N3RcCSaAclIOH1CrQ2VCy pUUDmBF2yDNcxIFdhN8Mq cYClJMPGOCDqx6rhL8bhL XBrk1VfwA9hsQU1hRDdDU TnqCW0SNMiFBY8PFsiwDY bCBZtWAOtnGCvgMDwPi3v tAZjE4NrH8dpquZibKKuk HO0pHIyFHwvfcRxZXG5PJ XasG8bXE5wHCGcbINeDX6 vdCBiZWVuIGNsZWFyZWQg x4AmERQbfk29FYSiZvnjr VgdGQSxIm5iIl4iXUNgkx JeIDP5CzNRUB2seqhdhXU htEmgqa2gVDqmAIAKMPJu DDSoEXN4RWKfnU2gHJA2s YO0PSL4P1pnE0seEVAjbg BiHT7qKAUorSIgwaYcZQc gIJ8zbQVkLNHlq9Qjsoag YMGtLDQ3QRH6UMnmNTMuA RYkIm9wZJIibS0xE2XuBN C7inWer4ClKhUHkYQmvY0 2dPVjlg64TCSaOLGsN4Qr ZGVkIGFzIGludmVzdGlnY DDir75zyULoukNsc5Tauv AoWWTpH4fjRONnxBJwkDM hr0VzbO7bmTWvdbJtYTU8 vIDpHKNbfX7wBDRscGsvJ SXkbL8hZ0CtRYfiPz4bUG XhygyoKA5jzi03TS4nyhL vDF2twsKtQJ39fnAjYvQo TGk9GTyMEWiIBIk8XUUie dPeaNEqoMEtPDKmmH8idL MqAs3evXHjnThyYCOlyKZ vZSdtgLsvQ2obnisrARnn fCPvz1EomH3yqYV7RFX5h I8cTukrEOX7 Gross assessment was [facility] performed at ([facility], = 2427) Department of Pathology, [address] [place] [address], Technical component was [facility] performed at ([facility], = 9114) Department of Pathology, [address] [place] [address], Professional component [facility] was performed at ([facility], code = 2779) Department of Pathology, [address] [place] [address], [place] [address], [facility] ASPIRATE BY [id number] 14:04:03 Medical Cytology Report Case: [id number] Authorizing Provider: Kristi Clifton MD Collected: 06/26/2022 01:06 PM Ordering Location: [facility] Received: 06/26/2022 01:29 PM PERIOPERATIVE SERVICES Pathologist: Theo Thacker MD Specimen: Lymph Node, Lower Paratracheal, Right, Station 4R REASON FOR ADDENDUM: TO REPORT RESULTS OF HER2 FISHRESULTS: NEGATIVEInterpretation:HER2 Signals/Nucleus: 2.1CEN17 Signals/Nucleus: 1.8HER2/CEN17 Signal Ratio: 1.1Please see attached/scanned [facility] report for complete interpretation.Addendum electronically signed by Shantelle Mcgrath MD on 07/14/2022 at 2:04 PMReason for addendum: To report results of biomarker studies.BIOMARKERS PERFORMED ON SECTION A9XCIEAYOY RECEPTOR: POSITIVEProportion score: 5/5Intensity score: 3/3SUMMARY: >90% POSITIVE, STRONG INTENSITY PROGESTERONE RECEPTOR: NEGATIVEProportion score: 1/5Intensity score: 1/3SUMMARY:<1% POSITIVE, WEAK INTENSITYHER 2 OVER-EXPRESSION: EQUIVOCAL (SCORE: 2+)Pending HER2 FISH, addendum report to followCAP REGULATION: FIXATION TIME FOR BIOMARKERS ASSESSMENTCollection date and time: 06/26/2022; 1306 HRSPlaced in fixative date and time: 06/26/2022; 1500 HRSRemoved from formalin date and time: 06/27/2022; 0400 HRSMethodology:Fixation type and length: tissue was fixed in 10% neutral buffered formalin for a minimum of at least 6 hours and no longer than 72 hours.Antibody and Assay Methodology: Antibodies for ER, PgR, Her2 and Ki67 were assessed using clones SP1, 1E2, 4B5 (FDA ApprovedVentana Pathway) and 30-9 respectively utilizing the ultraView [place] DAB Detection Kit from [place], [place].Control Slides Examined: In-house known ER, DE, HER2 and Ki67 positive controls were evaluated along with test tissue. These control slides run alongside of the patients sample show appropriate staining.Interpretive Criteria: The staining results are according to the ASCO/CAP guidelines for HER2 (see Kathy FRAZIER, Heber MORROW, Jocelyne QUINTANA, et al. HER 2 Testing in Breast Cancer: ASCO/CAP Focused Update. Arch Pathol Lab Med. 2018;142(11):3069-2244. doi:10.5858/arpa.0119-6149-IK) and ER/DE (see Heber Santacruz, Javed Benavides, et al. ER and DE Testing in Breast Cancer: ASCO/CAP Guideline Update. J Clin Oncol. 2020;38(12):8909-5497. doi:10.1200/JCO.19.97134).By ASCO/CAP guidelines, ER and DE "positive" requires greater or equal to 1% tumor cells showing nuclear staining. Tumor showing 1% - 10% tumor cells staining for ER are designated "ER Low Positive".HER 2 cyn "positive" (3+) requirescircumferential membrane staining that is complete and intense within more than 10% of the invasive tumor cells. HER 2 cyn "equivocal" (2+) requires complete membrane staining that is weak / moderatelyintense in >10% of invasive tumor cells. HER 2 cyn "negative" (1+) requires incomplete, faint membrane staining in >10% of invasive tumor cells and HER 2 cyn "negative" (0) requires no staining or faint incomplete membrane staining in <= 10% of invasive tumor cells.The ER/DE Proportion Score indicates the proportion of positive staining tumor cells (0 = none; 1 < 1/100; 2 = 1/100-1/10; 3 = >1/10-1/3; 4 = >1/3-2/3; 5> 2/3). The intensity score indicates the average intensity of positive staining tumor cells (0 = none; 1 = weak; 2 = intermediate; 3 = strong). For the purpose of defining "positive", the proportion and intensity scores were added to obtain a total score (range 0-8). ER and PgR "positive" (total score >2) were defined in studies correlating IHC total scores with clinical outcome in patients receiving hormonal therapy (see: Modern Pathol 11:155, 1998; J Clin Onc ol 17:1474, 1998; Int J Cancer 89:111, 2000; Breast Cancer Res Treat 76:S36[abst#30], 2002).Immunohistochemistry was performed on paraffin sections for the factors listed. The immunostaining signals were expressed as scores representing the estimated proportion and intensity of positive tumor cells. Ap propriate positive and negative controls were included in the evaluation.Immunohistochemistry technical testing was performed at [facility], Pathology Laboratory where it was developed and its performance characteristics were determined. It has not been cleared or approved by theU.S. Food and Drug Administration. The FDA has determined that such clearance or approval is not necessary. The test is used for clinical purposes. It should not be regarded as investigational or for research. This laboratory is certified under the Clinical Laboratory Improvement Amendments of 1988 (CLIA- 88) as qualified to perform high complexity clinical laboratory testing.Tissue block(s) for molecular testing: [id number] electronically signed by Shantelle Mcgrath MD on 07/01/2022 at 3:46PMLYMPH NODE, LOWER PARATRACHEAL, RIGHT, STATION 4R EBUS FNA BY CLINICIAN (DIRECT SMEARS AND CELL BLOCK OF ASPIRATE): - METASTATIC CARCINOMA COMPATIBLE WITH BREAST PRIMARY (SEE COMMENT) Signing Pathologist Direct Phone Line: [phone] signed by Theo Thacker MD on 06/30/2022 at 1:34 PMThe malignant cells are seen mainly in fibro-connective tissue in the cell block. No lymphoid tissue is seen, focal submucosal glands are seen. This could represent a completely replaced metastatic lymph node or extranodal tumor. Clinical correlation is recommended. Breast biomarkers will be reportedin an addendum. Findings were conveyed to Kristi Clifton MD on 06/30/22 at 1:30 pm by secure messaging.Please also see cytopathology case [id number] CONSULTATION: - Blu Mcgrath MD has seen the cell block and agrees with the diagnosis. 45423, 80497, 32532, 61474, 17668Xfncomuudmuchgh at the neck and associated hoarseness and difficulty speaking x 6 months, history of right breast cancerin 1999 s/p right mastectomy/chemoradiation in remission with worsening back pain. Thoracic MRI 06/02/22 showed T12 pathologic compression fracture and multifocal osseous metastatic disease of visualizedspine w/ lesions on C6, T7, T9, also noted a moderate left pleural effusion, enlarged LN near aorticarch. LYMPH NODE, LOWER PARATRACHEAL, RIGHT, STATION 4R EBUS FNAA. Lymph Node, Lower Paratracheal, Ri ght, Station 4R.Received 35 mls in cytorich red and 3 direct smear slides; prepared cell block (A2) (cell block placed in formalin at 3:00 pm, 06/26/2022) INADEQUATE, NO LYMPHOCYTES PRESENT. RARE ATYPICAL CELLS (12:05 PM, CM)Performed. The interpretation of this case included the use of immunohistochemistry or special stains.GATA3- positive, strongTTF1- negativeER: positiveControl Slides Examined: In-house known positive controls were evaluated along with the test tissue. These control slides run alongside of the patients sample show appropriate staining. Internal positive and negative controls when available are evaluated Immunohistochemistry technical testing was performed at [facility], Pathology Laboratory where it was developed and its performance characteristics were determined. It has not been cleared or approved by the U.S. Food and Drug Administration. The FDA has determined that such clearance or approval is not necessary. The test is used for clinical purposes. It should not be regarded as investigational or for research. This laboratory is certified under the Clinical Laboratory Improvement Amendments of 1988 (CLIA- 88) as qualified to perform high complexity clinical laboratory testing.[facility], Department of Pathology, [address] [place] [address], [facility], [facility] of [facility], [address] [place] [address], [facility], Department of Pathology, [address] [place] [address], DGXI NEEDLE ASPIRATE BY [id number] 13:42:35Medical Cytology Report Case: [id number] Authorizing Provider: Kristi Clifton MD Collected: 06/26/2022 01:05 PM Ordering Location: [facility] Received: 06/26/2022 01:32 PM PERIOPERATIVE SERVICES Pathologist: Theo Thacker MD Specimen: Lymph Node, Subcarinal, Station 7 LYMPH NODE, SUBCARINAL, STATION 7 EBUS FNA BY CLINICIAN (DIRECT SMEARS AND CELL BLOCK OF ASPIRATE): - CRUSHED MALIGNANT CELLS IN FIBRO CONNECTIVE TISSUE CONSISTENT WITH METASTATIC CARCINOMA, COMPATIBLE WITH BREAST PRIMARY Signing Pathologist Direct Phone Line: [phone] signed by Theo Thacker MD on 06/30/2022 at 1:42 PMPredominantly crushed malignant cells are seen mainly in fibro-connective tissue in the cell block. No lymphoid tissue is seen. This could represent a completely replaced metastatic lymph node or extranodal tumor. Clinical correlation is recommended. Findings were conveyed to Kristi Clifton MD on 06/30/22 at 1:30 pm by secure messaging. Please also see cytopathology case [id number] INTRADEPARTMENTAL CONSULTATION: - Blu Mcgrath MD has seen the cell block with IHC and agrees with the diagnosis. 86194, 39655, 39120, 79206, 39700 x 3Lymphadenopathy at the neck and associated hoarseness and difficulty speaking x 6 months, history of right breast cancer in 1999 s/p right mastectomy/chemorad iation in remission with worsening back pain. Thoracic MRI 06/02/22 showed T12 pathologic compression fracture and multifocal osseous metastatic disease of visualized spine w/ lesions on C6, T7, T9, alsonoted a moderate left pleural effusion, enlarged LN near aortic arch.LYMPH NODE, SUBCARINAL, STATION7 EBUS FNAA. Lymph Node, Subcarinal, Station 7.Received 32 mls in cytorich red and 3 direct smear slides; prepared cell block (A2) (cell block placed in formalin at 3:04 pm, 06/26/2022) LYMPH NODE, SATION 7, EBUS FNA: NOT ADEQUATE, NO LYMPHOID TISSUE PRESENT. (12:45 PM, [place])Performed. The interpretation of this case included the use of immunohistochemistry or special stains.GATA3- positiveER- positiveTTF1- bdhyzkxzY05- negativeControl Slides Examined: In-house known positive controls were evaluated along with the test tissue. These control slides run alongside of the patients sample show appropriatestaining. Internal positive and negative controls when available are evaluated Immunohistochemistry technical testing was performed at [facility], Pathology Laboratory where it was developed and its performance characteristics were determined. It has not been cleared or approved by the U.S. Food and Drug Administration. The FDA has determined that such clearance or approval is not necessary. The test is used for clinical purposes. It should not be regarded as investigational orfor research. This laboratory is certified under the Clinical Laboratory Improvement Amendments of 1988 (CLIA-88) as qualified to perform high complexity clinical laboratory testing.[facility], Department of Pathology, [address] [place] [address], [facility], [facility] of [facility], [address] [place] [address], [facility], Department of Pathology, [address] [place] [address], Udms Needle Aspirate (EBUS)2022-06-26 15:00:53 Test Item Value Reference Range Interpretation Comments Cytology (test code = See Separate Report 2629) [facility] [id number] 15:00:53 Test Item Value Reference Range Interpretation Comments CYTOLOGY RESULT POINTER See Separate Report (BEAKER) (test code = 2629) EBUS FNA [id number] 15:00:53 Test Item Value Reference Range Interpretation Comments CYTOLOGY RESULT POINTER See Separate Report (BEAKER) (test code = 2629) RAD, CHEST, 1 VIEW, NON [id number] 14:51:00Reason for exam:->Post-opShould this be performed at the bedside?->Yes [facility] 1945 Sex: FFINAL REPORT INDICATION: Post-op COMPARISON: None TECHNIQUE: Single frontal view of the chest. FINDINGS: Lines, tubes, and devices: None.Lungs and pleura: Small left pleural effusion. Bilateral airspace and interstitial opacities, which may represent atelectasis, pneumonia or pulmonary edema. No pneumothorax.Heart and mediastinum: Normal heart size. Unremarkable mediastinal contours. Scattered atherosclerotic vascular calcifications.Osseous structures: No acute abnormality.Other: None. IMPRESSION: 1.Small left pleural effusion.2.Bilateral airspace and interstitial opacities, which may represent atelectasis, pneumonia or pulmonary edema. Signed: Sebastian Bazzi Verified Date/Time: 06/26/2022 14:51:19 Reading Location: [facility] Radiology Reading Room POC-Glucose [id number] 10:08:18 Test Item Value Reference Range Interpretation Comments POC-Glucose Meter (test 129 mg/dL 70-110 H : TE STED AT [facility] code = 1538) [address] [facility], 770 30: Chrome Plater Helper/Techni roslyn ID = [id number] for TERI EMI Lab Interpretation (test Abnormal code = 43442-0) [facility] [id number] 10:08:18 Test Item Value Reference Range Interpretation Comments POC-GLUCOSE METER 129 mg/dL 70-110 H : TESTED A T [facility] 6720 (BEAKER) (test code = [facility], 1538) [address]: Chrome Plater Helper/Techni roslyn ID = [id number] for EMI ANGEL Urine [id number] 20:32:45 Test Item Value Reference Range Interpretation Comments Final Report (test code 10 - 50,000 cfu/ml A = 8488) Streptococcus agalactiae (Group B) Path Review - Urine The results have been A (test code = 8483) reviewed and electronically signed by Pathologist:EDY GEE MD #[id number] Lab Interpretation Abnormal (test code = 37003-8) [facility] Center[facility]2 Antigen and Antibodies, Fourth [id number] 04:20:55 Test Item Value Reference Range Interpretation Comments HIV Ag/Ab, NON-REACTIVE NON-REACTIVE HIV-1 antigen a nd 4TH Gen (test HIV-1/HIV-2 an tibodies were code = 27165) notdetected. T here is no laboratory evid ence of HIVinfection. P LEASE NOTE: This informatio n has been disclosed toyou from records whose confident iality may beprotected by state law. If your state requ ires suchprotection, then the state law prohi bits you frommaking any further disclosure of t he informationwith out the specific writte n consent of the personto om it pertains, or as otherwise permitted by roger thompson.A general authorization f or the release of medi can orother information is NOT sufficient for this purpose. For additional information please refer [email or web address] [email or web address]/faq /[email or web address](This link is being p rovided for informational/e ducational purposes only.) The performance of this assay has not been clinicallyvalid ated in patients less t lipscomb 2 years old. Lab test p erformed by:[facility] : [facility] [id number] [place] [address]FPSNXDIANNE DOLAN MD [facility] WashingtonUrinalysis w/Microscopic if [id number] 20:20:14 Test Item Value Reference Range Interpretation Comments UA Color (test code Straw Straw-Yellow = 13573-1) UA Appear (test code Clear Clear = 5767-9) UA Glucose (test NEG NEG mg/dL code = 5792-7) UA Bili (test code = NEG NEG 5770-3) UA Ketones (test NEG NEG mg/dL code = 5797-6) UA Spec Grav (test 1.008 1.003-1.035 code = 5810-7) UA Blood (test code NEG NEG = 5794-3) UA pH (test code = 6.5 5.0-9.0 5803-2) UA Protein (test NEG NEG mg/dL code = 5804-0) UA Urobilinogen NEG NEG (test code = 5818-0) UA Nitrite (test NEG NEG code = 5802-4) UA Leuk Est (test NEG NEG code = 5799-2) UA Comment (test See Comment No microsco pic exam code = 02603-0) performed, physiochemical findings are ne gative [facility] 17:55:09 Test Item Value Reference Range Interpretation Comments aPTT (test code = 30.1 See_Comment [Automate d message] The 19309-4) system which ge nerated this result transmit rey reference range : 22.8 - 34.2 second(s). The reference range was not used to interpr et this result as lul l/abnormal. [facility] BNP (In-House)2022-06-12 17:55:02 Test Item Value Reference Range Interpretation Comments NT ProBNP (test code 373 pg/mL See_Comment [Autom ated message] The = 44858-2) system which ge nerated this result tra nsmitted reference range : <=450. The reference r azul was not used to int erpret this result as normal/abnormal . [facility] HospitalFractionated [id number] 17:52:21 Test Item Value Reference Range Interpretation Comments Bili Total (test 0.4 mg/dL See_Comment Indocyanine Green (ICG) code = 1974-2) may cause fal sely elevated biliru bin results. Total and direct bilirubin must not be measured from s amples containing indo cyanine green. False el evation of total bilirubin can be seen in patient s with IgG concentrations above 28 g/L. [Automated message] The system [employer] generated this result transmitted ref erence range: <=1.2. T he reference range was not used to interpr et this result as normal/abnormal . Bili Direct (test See_Comment Indocyanin e Green (ICG) code = 1967-7) may cause fal sely elevated biliru bin results. Total and direct bilirubin must not be measured from s amples containing indo cyanine green. [Automat ed message] The sy stem which generated this result transmitted ref erence range: <=0.3. T he reference range was not used to interpr et this result as normal/abnormal . Bili Indirect (test See Note 0.0-0.9 Unable t o calculate code = 1971-1) Indirect Bili shirley result due to some par ameters are outside rep ortable range [facility]Total [id number] 17:52:14 Test Item Value Reference Range Interpretation Comments Total Protein (test code = 2885-2) 7.2 g/dL 6.4-8.3 [facility] HospitalElectrolyte [id number] 17:52:11 Test Item Value Reference Range Interpretation Comments Sodium Lvl (test code = 134 See_Comment L [Au tomated message] 2951-2) The system [employer] generated this result transmitted ref erence range: 136 - 14 5 mEq/L. The refe rence range was not u sed to interpret this result as normal/abnor mal. Potassium Lvl (test code 4.2 See_Comment [A utomated message] = 2823-3) The system [employer] generated this result transmitted ref erence range: 3.5 - 5. 1 mEq/L. The refe rence range was not u sed to interpret this result as normal/abnor mal. Chloride (test code = 98 See_Comment [Auto mated message] 2074-0) The system [employer] generated this result transmitted ref erence range: 98 - 107 mEq/L. The refe rence range was not u sed to interpret this result as normal/abnor mal. CO2 (test code = 2027-9) 25 See_Comment [A utomated message] The system [employer] generated this result transmitted ref erence range: 22 - 29 mEq/L. The reference r azul was not used to interpret this result as normal/abnor mal. Anion Gap (test code = 11 See_Comment [Aut omated message] 24761-4) The system [employer] generated this result transmitted ref erence range: 4 - 14 m Eq/L. The reference r azul was not used to interpret this result as normal/abnor mal. Lab Interpretation (test Abnormal code = 71386-8) [facility] HospitalGlucose [id number] 17:52:09 Test Item Value Reference Range Interpretation Comments Glucose Level (test code 178 mg/dL 70-99 H Eff ective 05/27/16, = 2345-7) the glucose reference inter vals have been updat ed based on [place] Diabetes Associ ation guidelines (Standards of Medical Care in Diabetes 2016. Diabetes Care 2 016; 39: S13-S22).Fa sting blood glucose:Normal: 70-99 mg/dLImpa ired fasting glucose (increased risk for diabetes or pre-diabetes): 100-125 mg/dLDiabetes mellitus: >/=12 6 mg/dL Random bl ood glucose:Normal: 70-199 mg/dLNot e: Random glucose >100 mg/dL is associ ated with increased risk for diabetes Lab Interpretation (test Abnormal code = 97820-9) [facility] Hospital[facility] Jimenez ([facility])2022-06-12 17:34:01 Test Item Value Reference Range Interpretation Comments Troponin T (test code 15 ng/L See_Comment < 19 n g/L Suggest retest = 67906-6) at 3 to 6 hours later to rule out myocar dial infarction >= 1 9 to <=52 ng/L Possible m yocardial injury. Suggest retest at 3 hours. - a ch azul of < 20 ng/L, retest at 6 hours - a willis e of >= 20 ng/L, suggestiv e of myocardial infa rction > 52 ng/L Suggest mayra of myocardial infa rction Critical value will be reported when c Argenis is > 52 ng/L and onl y reported for the first i n a series. Hemolyz ed specimens with Hemolysis Index >100 (100 mg/dl or moderate hemoly sis) may cause interfere nces and falsely low res ults. [Automated mess age] The system which ge nerated this result tra nsmitted reference range : <=18. The reference r azul was not used to int erpret this result as normal/abnormal . [facility]
[2022-10-14] MEDS ORDERED: LEVALBUTEROL 1.25 MG/3 ML NEB ONE (20:00)
[2022-10-14 20:06] LABS: Absolute Lymphocytes (CBC) 0.4 K/uL (0.7-4.9); Hematocrit 32.2 % (36.0-45.0); Lymphocytes % 10.1 % (15.3-44.8); MCV 96.1 fL (80-100); MPV 6.8 fL (7.6-11.3); RBC Red Blood Cell Count 3.35 M/uL (3.86-4.86)
[2022-10-14 20:20] LABS: Albumin 2.7 g/dL (3.4-5.0); Bilirubin Total 0.6 mg/dL (0.2-1.0); Potassium 3.1 mmol/L (3.5-5.1); Protein, Total 7.6 g/dL (6.4-8.2)
[2022-10-14 20:36] LABS: SARS-COV-2 RT PCR NEGATIVE (NEGATIVE)
[2022-10-14] MEDS ORDERED: POTASSIUM CL SA 10 MEQ TAB PO ONE (20:47)
[2022-10-14] MEDS ORDERED: ONDANSETRON 4 MG/2 ML VIAL ONE (21:01)
--- NOTE | 2022-10-14 21:38 | RAD REPORT ---
EXAM DESCRIPTION: CT - Chest For Pe Angio - 10/14/2022 9:12 pm CLINICAL HISTORY: Shortness of breath COMPARISON: June 2021 in June 2022 TECHNIQUE: Dynamically enhanced axial 3 mm thick images of the chest were obtained during administra tion of <100> mL Isovue 370 IV contrast. Coronal and oblique reconstruction images were generated and reviewed. Exam utilizes a protocol for optimal evaluation of pulmonary arterial tree. Maximum intensity projections 3D imaging was utilized All CT scans are performed using dose optimization technique as appropriate and may include automated exposure control or mA/KV adjustment according to patient size. FINDINGS: A pulmonary embolus is not seen. A thoracic aortic aneurysm is not noted. Large left pleural effusion with left basilar atelectasis. A pericardial effusion is not seen. Mild to moderate right lung opacities. Severe chronic stenosis right common carotid artery Right mastectomy 16 millimeter anterior mediastinal lymph node IMPRESSION: Negative for a pulmonary embolism. Large left pleural effusion Mild to moderate right lung opacities may represent pneumonia or pulmonary edema Severe chronic stenosis right common carotid artery 16 millimeter anterior mediastinal lymph node
[2022-10-14] MEDS ORDERED: POTASSIUM 25 MEQ EFFERV TAB ONE (22:03)
--- NOTE | 2022-10-14 23:29 | EDPHYS ---
Physician Documentation [facility] Name: Neris Nevarez Age: 76 yrs Sex: Female : 1945 Arrival Date: 10/14/2022 Time: 18:42 Bed 13 Private MD: Jasmyne Ochoa ED Physician Loi Marin HPI: 10/14 18:52 This 76 yrs old Female presents to ER via Ambulatory with complaints of rattle jmm chest sounds. 18:52 The patient has shortness of breath at rest. Onset: The symptoms/episode began/occurred jmm today. This is a 76 year old female with a history of stage IV breast cancer that presents to the ED with complaints of right sided chest rattling per daughter. Patient is currently on oral hormone therapy. Patient complains of some mild shortness of breath. . Historical: - PMHx: 18:58 Cancer, Breast; Hypertensive disorder; Hypothyroidism; DVT; Diabetes - NIDDM; jh5 - PSHx: 18:58 GALLBLADDER; section; mastectomy; [facility] - Immunization history:: Adult Immunizations up to date. - Social history:: Smoking status: Patient denies any tobacco usage or history of. ROS: 19:20 Constitutional: Negative for fever, chills, and weight loss, Cardiovascular: Negative jmm for chest pain, palpitations, and edema. 19:20 Respiratory: Positive for shortness of breath, wheezing. 19:20 All other systems are negative. Exam: 19:20 Constitutional: This is a well developed, well nourished patient who is awake, alert, jmm and in no acute distress. Head/Face: atraumatic. Eyes: EOMI, no conjunctival erythema appreciated ENT: Moist Mucus Membranes Neck: Trachea midline, Supple Chest/axilla: Normal chest wall appearance and motion. Cardiovascular: Regular rate and rhythm. No edema appreciated 19:20 Back: Normal ROM Skin: General appearance color normal MS/ Extremity: Moves all extremities, no obvious deformities appreciated, no edema noted to the lower extremities Neuro: Awake and alert Psych: Behavior is normal, Mood is normal, Patient is cooperative and pleasant 19:20 Respiratory: the patient does not display signs of respiratory distress, Respirations: normal, Breath sounds: wheezing: that is moderate, is heard in the right upper lobe. Vital Signs: 18:57 BP 184 / 63; Pulse 77; Resp 18; Temp 98.7; Pulse Ox 93% on R/A; Weight 50.35 kg; Height [facility] 4 ft. 11 in. (149.86 cm); Pain 0/10; 20:00 BP 180 / 58; Pulse 75; Resp 16; Pulse Ox 94% on R/A; jb4 22:00 BP 192 / 61; Pulse 79; Resp 18; Pulse Ox 91% on R/A; jb4 23:00 BP 166 / 54; Pulse 75; Resp 16; Pulse Ox 94% on R/A; jb4 18:57 Body Mass Index 22.42 (50.35 kg, 149.86 cm) [facility] MDM: 18:52 Patient medically screened. [facility] 23:30 Data reviewed: vital signs, nurses notes, lab test result(s). Counseling: I had a kdr detailed discussion with the patient and/or guardian regarding: the historical points, exam findings, and any diagnostic results supporting the discharge/admit diagnosis, lab results, the need for outpatient follow up. ED course: Given equivocal CT findings and possible pneumonia, will cover the patient with Augmentin. Patient (daughter) was advised to provide the clinical data to her team at [facility] for further evaluation and follow-up. 10/14 18:53 Order name: CBC with Diff; Complete Time: 20:15 [facility] 10/14 18:53 Order name: CMP; Complete Time: 20:34 [facility] 10/14 18:53 Order name: COVID-19/FLU A+B; Complete Time: 22:02 [facility] 10/14 18:53 Order name: Chest For PE Angio CT; Complete Time: 22:02 [facility] 10/14 19:00 Order name: Lactate w/ 2H reflex if indic.; Complete Time: 20:34 [facility] 10/14 19:00 Order name: Blood Culture Adult (2) [facility] 10/14 18:53 Order name: Saline Lock; Complete Time: 19:41 [facility] Administered Medications: 20:05 Drug: Xopenex (levalbuterol) (3) 1.25 mg Route: Inhalation; jb4 20:53 Drug: Potassium Chloride 40 mEq Route: PO; jb4 20:55 Follow up: Response: Pt began vomiting after pt took medication. jb4 21:03 Drug: Zofran (Ondansetron) 4 mg Route: IVP; Site: left antecubital; jb4 21:30 Follow up: Response: No adverse reaction; Marked relief of symptoms; Nausea is decreasedjb4 21:04 Not Given (Other Intervention Used): Potassium Chloride Liquid 40 mEq PO once jb4 22:10 Drug: Klor-Con (potassium) Effervescent Tablet 50 mEq Route: PO; jb4 23:00 Follow up: Response: No adverse reaction jb4 Disposition: 23:27 Co-signature as Attending Physician, Loi Marin MD I agree with the assessment and kdr plan of care. Disposition Summary: 10/14/22 23:28 Discharge Ordered Location: Home kdr Problem: new kdr Symptoms: are unchanged kdr Condition: Stable kdr Diagnosis - Pleural effusion in other conditions classified elsewhere kdr - Recurrent breast cancer kdr Followup: kdr - With: Private Physician - When: 24 Hours - Reason: If symptoms return, Further diagnostic work-up, Recheck today's complaints, Continuance of care, Re-evaluation by your physician Discharge Instructions: - Discharge Summary Sheet kdr - Pleural Effusion kdr Forms: - Medication Reconciliation Form kdr - Thank You Letter kdr - Antibiotic Education kdr Prescriptions: - Augmentin 875-125 mg Oral Tablet - take 1 tablet by ORAL route every 12 hours for 7 days; 14 tablet; Refills: 0, kdr Product Selection Permitted Signatures: Dispatcher [employer] EDHenrique Collins MD MD cha Rittger, Kevin, MD MD kdr Mickail, Joel, PA PA jmm Bryson, James, RN RN jb4 Kate Ortiz RN RN jh5 Corrections: (The following items were deleted from the chart) 19:22 18:52 This is a 76 year old female with a history of stage IV breast cancer that nate presents to the ED with complaints of right sided . nate
--- NOTE | 2022-10-14 23:29 | ER ---
Nurse's Notes [facility] Name: Neris Nevarez Age: 76 yrs Sex: Female : 1945 Arrival Date: 10/14/2022 Time: 18:42 Bed 13 Private MD: Jasmyne Ochoa Diagnosis: Pleural effusion in other conditions classified elsewhere;Recurrent breast cancer Presentation: 10/14 18:57 Chief complaint: Patient states: 5 days ago I started having rattling in my chest. [facility] Coronavirus screen: Vaccine status: Patient reports being unvaccinated. Client denies travel out of the [place] in the last 14 days. Ebola Screen: Patient negative for fever greater than or equal to 101.5 degrees Fahrenheit, and additional compatible Ebola Virus Disease symptoms Patient denies exposure to infectious person. Patient denies travel to an Ebola-affected area in the 21 days before illness onset. Initial Sepsis Screen: Does the patient meet any 2 criteria? No. Patient's initial sepsis screen is negative. Does the patient have a suspected source of infection? No. Patient's initial sepsis screen is negative. Risk Assessment: Do you want to hurt yourself or someone else? Patient reports no desire to harm self or others. Onset of symptoms was October 09, 2022. 18:57 Method Of Arrival: Ambulatory [facility] 18:57 Acuity: YOLIE 3 5 Triage Assessment: 18:58 General: Appears uncomfortable, slender, well groomed, well developed, Behavior is 5 calm, cooperative, appropriate for age. Pain: Denies pain. Historical: - PMHx: 18:58 Cancer, Breast; Hypertensive disorder; Hypothyroidism; DVT; Diabetes - NIDDM; 5 - PSHx: 18:58 GALLBLADDER; section; mastectomy; 5 - Immunization history:: Adult Immunizations up to date. - Social history:: Smoking status: Patient denies any tobacco usage or history of. Screenin:00 [facility] ED Fall Risk Assessment (Adult) History of falling in the last 3 months, jb4 including since admission No falls in past 3 months (0 pts) Confusion or Disorientation No (0 pts) Intoxicated or Sedated No (0 pts) Impaired Gait Yes (1 pt) Mobility Assist Device Used Yes (1 pt) Altered Elimination No (0 pt) Score/Fall Risk Level 0 - 2 = Low Risk Oriented to surroundings, Maintained a safe environment, Educated pt \T\ family on fall prevention, incl call for assistance when getting out of bed, Assessed \T\ reinforced patient's understanding of fall precautions. Abuse screen: Denies threats or abuse. Nutritional screening: No deficits noted. Tuberculosis screening: No symptoms or risk factors identified. Fall Risk Assessment: 19:15 General: Appears in no apparent distress. comfortable, Behavior is calm, cooperative, jb4 appropriate for age. Pain: Denies pain. Neuro: Level of Consciousness is awake, alert, obeys commands, Oriented to person, place, time, situation. Cardiovascular: Patient's skin is warm and dry. Respiratory: Reports cough that is non-productive, Airway is patent Respiratory effort is even, unlabored, Respiratory pattern is regular, symmetrical, Breath sounds with crackles bilaterally. GI: No signs and/or symptoms were reported involving the gastrointestinal system. : No signs and/or symptoms were reported regarding the genitourinary system. EENT: No signs and/or symptoms were reported regarding the EENT system. Derm: Skin is intact, Skin is pink, warm \T\ dry. Musculoskeletal: Circulation, motion, and sensation intact. Range of motion: intact in all extremities. 20:05 Reassessment: Pt repositioned to sitting position. jb4 20:58 Reassessment: Pt began vomiting after taking 3 of the 10mEq potassium pills. Pill jb4 fragments noted in the vomit. Provider notified, see Mar for orders. 22:00 Reassessment: Patient appears in no apparent distress at this time. Patient and/or jb4 family updated on plan of care and expected duration. Pain level reassessed. Patient is alert, oriented x 3, equal unlabored respirations, skin warm/dry/pink. Patient states feeling better. Patient states symptoms have improved. 23:00 Reassessment: Patient appears in no apparent distress at this time. Patient and/or jb4 family updated on plan of care and expected duration. Pain level reassessed. Patient is alert, oriented x 3, equal unlabored respirations, skin warm/dry/pink. 10/15 00:00 Reassessment: Patient appears in no apparent distress at this time. Patient and/or jb4 family updated on plan of care and expected duration. Pain level reassessed. Patient is alert, oriented x 3, equal unlabored respirations, skin warm/dry/pink. Vital Signs: 10/14 18:57 BP 184 / 63; Pulse 77; Resp 18; Temp 98.7; Pulse Ox 93% on R/A; Weight 50.35 kg; Height [facility] 4 ft. 11 in. (149.86 cm); Pain 0/10; 20:00 BP 180 / 58; Pulse 75; Resp 16; Pulse Ox 94% on R/A; jb4 22:00 BP 192 / 61; Pulse 79; Resp 18; Pulse Ox 91% on R/A; jb4 23:00 BP 166 / 54; Pulse 75; Resp 16; Pulse Ox 94% on R/A; jb4 18:57 Body Mass Index 22.42 (50.35 kg, 149.86 cm) [facility] ED Course: 18:42 Patient arrived in ED. am2 18:42 Jasmyne Ochoa is Private Physician. am2 18:49 [facility] 18:49 Henrique Nieves MD is Attending Physician. [facility] 18:58 Triage completed. [facility] 18:58 Arm band placed on right wrist. [facility] 19:00 Patient has correct armband on for positive identification. Bed in low position. Call [facility] light in reach. Side rails up X 1. Client placed on continuous cardiac and pulse oximetry monitoring. NIBP monitoring applied. 19:46 Inserted saline lock: 20 gauge in left antecubital area, using aseptic technique. Blood oe collected. 20:10 Attending Physician role handed off by Henrique Nieves MD kdr 20:10 Loi Marin MD is Attending Physician. kdr 20:22 Notified ED physician of a critical lab result(s). calcium of 6.8 Dr Marin notified. bb 20:42 Quinton Gomez, RN is Primary Nurse. jb4 21:14 Chest For PE Angio CT In Process Unspecified. EDMS 10/15 00:04 No provider procedures requiring assistance completed. IV discontinued, intact, jb4 bleeding controlled, No redness/swelling at site. Pressure dressing applied. Administered Medications: 10/14 20:05 Drug: Xopenex (levalbuterol) (3) 1.25 mg Route: Inhalation; jb4 20:53 Drug: Potassium Chloride 40 mEq Route: PO; jb4 20:55 Follow up: Response: Pt began vomiting after pt took medication. jb4 21:03 Drug: Zofran (Ondansetron) 4 mg Route: IVP; Site: left antecubital; jb4 21:30 Follow up: Response: No adverse reaction; Marked relief of symptoms; Nausea is decreasedjb4 21:04 Not Given (Other Intervention Used): Potassium Chloride Liquid 40 mEq PO once jb4 22:10 Drug: Klor-Con (potassium) Effervescent Tablet 50 mEq Route: PO; jb4 23:00 Follow up: Response: No adverse reaction jb4 Medication: 23:00 VIS not applicable for this client. jb4 Outcome: 23:28 Discharge ordered by . kdr 10/15 00:04 Discharged to home via wheelchair, with family. jb4 Condition: stable Discharge instructions given to patient, family, Instructed on discharge instructions, follow up and referral plans. medication usage, Demonstrated understanding of instructions, follow-up care, medications, Prescriptions given X 1. 00:06 Patient left the ED. jb4 Signatures: Dispatcher [employer] EDMS Loi Marin MD MD kdr Mickail, Joel, PA PA Enid Conde RN RN Quinton Pineda RN RN jb4 Adam Melgar Amanda am2 Rees, Jessica RN RN jh5 Corrections: (The following items were deleted from the chart) 10/14 21:03 20:53 Potassium Chloride Liquid 40 mEq PO jb4 jb4 10/15 00:06 10/14 22:00 Response: No adverse reaction jb4 jb4
[2022-10-15 00:49] VITALS: TEMP 98.7
[2022-10-15 01:06] VITALS: BP 166/54; O2SAT 94
== END 2022-10-15 00:06 | disposition home or self-care (01) ==
LOC: ER 18:35
DX: R06.02 Shortness of breath (principal); J91.8 Pleural effusion in other conditions classified elsewhere; C50.919 Malignant neoplasm of unspecified site of unspecified female breast; Z85.3 Personal history of malignant neoplasm of breast; I10 Essential (primary) hypertension; E11.9 Type 2 diabetes mellitus without complications; Z20.822 Contact with and (suspected) exposure to COVID-19; Z90.11 Acquired absence of right breast and nipple
CPT/HCPCS: 87040 ×2; 85025; 36415; 83605; 80053; 0240U; 71275; 96374; 99284; Q9967; J7614; J2405

== ENCOUNTER 2022-10-26 23:15 | Emergency (ER) | payer OTHER ==
--- OUTSIDE RECORDS SUMMARY | 2022-10-26 23:19 | XMS REPORT | Clinical Summary ---
:1945 Author Organization [facility] MD [facility] Address [address] [place] [address] Care Team Providers Name Role Phone Sanjeev [...] mg tab nightly as needed for sleep. ribociclib (Kisqali) Take 2 42 tablet 1 Active 400 mg/day (200 mg x tablets (400 2 2) tabletIndications: mg) by mouth Infiltrating duct daily. Every carcinoma, NOS of morning for overlapping lesion of 21 days breast <Female; followed by 7 Right> days off. Repeat every 28 days. HYDROcodone-acetamino Take 1 tablet 60 tablet 0 Active phen (Liberty) 5 mg-325 by mouth 2 mg per every 4 tabletIndications: (four) hours Chronic pain due to as needed for malignant neoplastic moderate disease pain. 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 Right> traMADol (ULTRAM) 50 every 4 0 10/05/20 Discontinued mg tablet (four) hours. 2 22 letrozole (Femara) Take 1 tablet 28 tablet 1 0 Discontinued 2.5 mg (2.5 mg) by 2 22 (Reorder ) tabletIndications: mouth daily Infiltrating duct for 28 days. carcinoma, 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; Right> prochlorperazine Take 1 tablet 30 tablet 2 10/20/20 Discontinued (Compazine) 10 mg (10 mg) by 2 22 ( Reorder) tabletIndications: mouth every 6 Infiltrating duct (six) [...] days off. Right> Repeat every 28 days. letrozole (FEMARA) TAKE 1 TABLET 28 tablet 1 0 Discontinued 2.5 mg BY MOUTH 2 22 tabletIndications: DAILY FOR 28 Infiltrating duct DAYS. 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, ER+, DC-, HER2-) - Signed by Sanjeev Mcgowan MD on 09/03/2022 Encounters Date Type Specialty Care Team Description 10/19/2022 Refill Breast Medical Yvette De La Torre, Infiltrat ing duct Oncology ANP carcinoma, NOS of overlapping les ion of breast <Female; Right> 10/05/2022 Infusion Infusion Services Yvette De La Torre, Infilt rating duct ANP carcinoma, NOS of overlapping les ion of breast <Female; 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) 10/05/2022 Follow-Up Breast Medical Sanjeev Mcgowan, Infiltra ting duct carcinoma, 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; 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); Oncology Chronic pain du e to malignant neoplastic disease 10/05/2022 Travel 09/23/2022 Refill Breast Medical Yvette De La Torre, Infiltrat ing duct Oncology ANP carcinoma, NOS of overlapping les ion of breast <Female; Right> 09/17/2022 Ancillary Radiology Sanjeev Mcgowan, Infiltrati ng duct Procedure carcinoma, NOS of overlapping les ion of breast <Female; Right> 09/17/2022 Travel 09/16/2022 Ancillary Radiology Alex Cancer Procedure MD Karen 09/16/2022 Ancillary Radiology Alex Cancer Procedure MD Karen 09/11/2022 Orders Only Breast Medical Yvette De La Torre, Infiltrat ing duct Oncology ANP carcinoma, NOS of overlapping les ion of breast <Female; 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) 09/08/2022 Orders Only Breast Medical 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, Oncology LINOLEUM LAYER APPRENTICE 09/08/2022 Orders Only Breast Medical Sanjeev Mcgowan, [...] st cancer (Primary Dx); Back pain after 10/26/2021 Surgical History Surgery Date Site/Laterality Comments MASTECTOMY [...] No / Unsu re 10/05/2022 12:36 PM SET STAFF FITTER someone who was confirmed or suspected to [...] Comments Blood Pressure 153/75 10/05/2022 9:11 AM SET STAFF FITTER Pulse 75 10/05/2022 9:11 AM SET STAFF FITTER Temperature 37 C (98.6 F) 10/05/2022 9:11 AM SET STAFF FITTER Respiratory Rate 18 10/05/2022 9:11 AM SET STAFF FITTER Oxygen Saturation 97% 10/05/2022 9:11 AM SET STAFF FITTER Inhaled Oxygen Concentration - - Weight 47.3 kg (104 lb 4.4 oz) 10/05/2022 9:13 AM SET STAFF FITTER Height 140.5 cm (4' 7.32") 09/17/2022 8:58 AM SET STAFF FITTER Body Mass Index 23.96 09/17/2022 8:58 AM SET STAFF FITTER Plan of Treatment Date Type Specialty Care Team Description 11/03/2022 Lab Lab Yvette De La Torre ANP [address] [place], [place] [address] (Wo rk) 11/03/2022 Follow-Up Breast Medical Oncology Sanjeev Mcgowan MD [address] [place], [place] [address] (Wo rk) 11/04/2022 Consult Radiation Oncology Salas Huerta MD [facility] [place] [address] (Wo rk) 12/28/2022 Infusion Infusion Services Yvette De La Torre ANP [address] [place], [place] [address] (Abimael zurita) Health Maintenance Due Date Last Done Comments COVID-19 Vaccination (#1) 04/16/1946 Procedures Procedure Name Priority Date/Time Associated Comments Diagnosis .GLOMERULAR FILTRATION Routine 10/05/2022 8:[address] Results for this RATE AM SET STAFF FITTER carcinoma, NOS of procedure are in overlapping lesion the resul ts of breast <Female; section. Right> SERUM CREATININE Routine 10/05/2022 8:57 Infiltrating duct Res ults for this AM SET STAFF FITTER carcinoma, NOS of procedure are in overlapping lesion the resul ts of breast <Female; section. Right> MANUAL DIFFERENTIAL Routine 10/05/2022 8:57 Infiltrating duct Results for this AM SET STAFF FITTER carcinoma, NOS of procedure are in overlapping lesion the resul ts of breast <Female; section. Right> Results CBC Routine 10/05/2022 8:57 Infiltrating duct Results for this AM SET STAFF FITTER carcinoma, NOS of procedure are in overlapping lesion the resul ts of breast <Female; section. Right> POTASSIUM LEVEL Routine 10/05/2022 8:57 Infiltrating duct Resu lts for this AM SET STAFF FITTER carcinoma, NOS of procedure are in overlapping lesion the resul ts of breast <Female; section. Right> SERUM CREATININE Routine 10/05/2022 8:57 Infiltrating duct AM SET STAFF FITTER carcinoma, 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; Right> MAGNESIUM LEVEL Routine 10/05/2022 8:57 Infiltrating duct Resu lts for this AM SET STAFF FITTER carcinoma, NOS of procedure are in overlapping lesion the resul ts of breast <Female; section. Right> PHOSPHORUS LEVEL Routine 10/05/2022 8:57 Infiltrating duct Res ults for this AM SET STAFF FITTER carcinoma, NOS of procedure are in overlapping lesion the resul ts of breast <Female; section. Right> CALCIUM LEVEL TOTAL Routine 10/05/2022 8:57 Infiltrating duct Results for this AM SET STAFF FITTER carcinoma, NOS of procedure are in overlapping lesion the resul ts of breast <Female; section. Right> ASPARTATE Routine 10/05/2022 8:57 Infiltrating duct Results for this AMINOTRANSFERASE AM SET STAFF FITTER carcinoma, NOS of proced ure are in overlapping lesion the resul ts of breast <Female; section. Right> ALANINE AMINOTRANSFERASE Routine 10/05/2022 8:57 Infiltrating duct Results for this AM SET STAFF FITTER carcinoma, NOS of procedure are in overlapping lesion the resul ts of breast <Female; section. Right> ALKALINE PHOSPHATASE Routine 10/05/2022 8:57 Infiltrating duct Results for this AM SET STAFF FITTER carcinoma, NOS of procedure are in overlapping lesion the resul ts of breast <Female; section. Right> BILIRUBIN TOTAL Routine 10/05/2022 8:57 Infiltrating duct Resu lts for this AM SET STAFF FITTER carcinoma, NOS of procedure are in overlapping lesion the resul ts of breast <Female; section. Right> COMPLETE BLOOD COUNT W/ Routine 10/05/2022 8:57 Infiltrating d uct DIFFERENTIAL AM SET STAFF FITTER carcinoma, 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; Right> PETCT CONTRAST ENHANCED Routine 09/17/2022 10:09 Infiltrating duct Results for this SUBSEQUENT TREATMENT AM SET STAFF FITTER carcinoma, NOS of pr ocedure are in STRATEGY overlapping lesion the resul ts of breast <Female; section. Right> POC GLUCOSE SCREEN Routine 09/17/2022 8:46 Result s for this AM SET STAFF FITTER procedure are i n the results section. [...] MUTATION ANALYSIS AM CDT carcinoma, NOS of lauro snell are in COLLECTION, BLOOD overlapping lesion the [...] 9:07 Cancer Resu lts for this PM SET STAFF FITTER procedure are i n the results section. after 10/26/2021 Results (ABNORMAL) .Serum Creatinine (10/05/2022 8:57 AM SET STAFF FITTER)Only the most recent of3 resultswithin the time period is included. athologist Signature Creatinine 1.05 (H) 0.51 - 0.95 [place] mg/dL Comment: Testing performed at [facility], [facility] [place] [address] Specimen Anatomical Collection Method Collection Time Receive d Time (Source) Location / / Volume Laterality Blood 10/05/2022 8:57 10/05/2022 8:58 AM SET STAFF FITTER AM SET STAFF FITTER Sanjeev Mcgowan MD LAB BLOOD ORDERABLES Performing Organization Address City/State/ZIP Code Phon e Number [facility] [place] [address] [place] [address] (ABNORMAL) .CBC (10/05/2022 8:57 AM SET STAFF FITTER)Only the most recent of3 resultswithin the time period is included. athologist Signature WBC 2.2 (L) 4.0 - 11.0 [place] K/uL Comment: All components of the CBC perfo rmed at [facility], [address] [place] [address], [place] 77 3 RBC 3.27 (L) 4.00 - 5.50 M/uL [place] Comment: All components of the CBC perfo rmed at [facility], [address] [place] [address] 77 3 Hgb 10.7 (L) 12.0 - 16.0 gm/dL [place] Comment: As part of CBC or as an individ ual orderable testing performed at [facility], [address] [place] [address], [place] [address] Hct 32.3 (L) 37.0 - 47.0 % [place] Comment: As part of CBC testing performe d at [facility], [address] [place] [address] MCV 99 (H) 82 - 98 fL [place] Comment: As part of CBC testing performe d at [facility], [address] [place] [address] MCH 32.7 (H) 27.0 - 31.0 pg [place] Comment: As part of CBC testing performe d at [facility], [address] [place] [address] MCHC 33.1 31.0 - 36.0 gm/dL [place] Comment: As part of CBC testing performe d at [facility], [address] [place] [address], [place] [address] RDW-SD 46.6 (H) 35.1 - 46.3 fL [place] Comment: As part of CBC testing performe d at [facility], [address] [place] [address], [place] [address] RDW-CV 14.1 12.0 - 15.5 % [place] Comment: As part of CBC testing performe d at [facility], [address] [place] [address], [place] [address] Platelet count 225 140 - 440 K/uL [facility] Comment: As part of CBC or an individual orderable testing performed at [facility], [address] [place] [address] MPV 8.9 4.0 - 10.4 fL [place] Comment: As part of CBC testing performe d at [facility], [address] [place] [address] Specimen Anatomical Collection Method Collection Time Receive d Time (Source) Location / / Volume Laterality Blood 10/05/2022 8:57 AM 8:58 SET STAFF FITTER AM SET STAFF FITTER Sanjeev Mcgowan MD LAB BLOOD ORDERABLES Performing Organization Address City/State/[place] [address] [place] [address] (ABNORMAL) Glomerular Filtration Rate (10/05/2022 8:57 AM SET STAFF FITTER)Only the most recent of3 resultswithin the time period is included. P athologist Signature eGFR 55 (L) >=60 [place] mL/min/1.73 sq. m Comment: The eGFRcr is [...] fulfill criteria for CKD. Testing performed at [facility], [address] [place] [address] Specimen Anatomical Collection Method Collection Time Receive d Time (Source) Location / / Volume Laterality Blood 10/05/2022 8:57 AM 8:58 SET STAFF FITTER AM SET STAFF FITTER Sanjeev Mcgowan MD LAB BLOOD ORDERABLES Performing Organization Address City/State/ZIP Code Phon e Number [place], [place] [id number] [place] [address] (ABNORMAL) Differential (10/05/2022 8:57 AM SET STAFF FITTER)Only the most recent of3 results within the time period is included. athologist Signature Neutrophil % 64.7 42.0 - 66.0 [place] % Comment: All components of the Different ial performed at [facility], [address] [place] [address] Lymphocyte % 23.3 (L) 24.0 - 44.0 % [place] Comment: As part of the Differential kinsey ting performed at [facility], [address] [place] [address] Monocyte % 8.5 (H) 2.0 - 7.0 % [place] Comment: As part of the Differential kinsey ting performed at [facility], [address] [place] [address] Eosinophil % 1.3 1.0 - 4.0 % [place] Comment: As part of the Differential kinsey ting performed at [facility], [address] [place] [address] Basophil % 1.8 (H) 0.0 - 1.0 % [place] Comment: As part of the Differential kinsey ting performed at [facility], [address] [place] [address] IGRE % 0.4 0.0 - 0.4 % [place] Comment: IGRE % count includes Metamyelocytes, My elocytes, and Promyelocytes. As part of the Differential testing perf ormed at [facility], [address] [place] [address] Neutrophil Abs 1.44 (L) 1.70 - 7.30 K/uL [facility] [place] Comment: As part of the Differential kinsey ting performed at [facility], [address] [place] [address] Lymphocyte Abs 0.52 (L) 1.00 - 4.80 K/uL [facility] [place] Comment: As part of the Differential kinsey ting performed at [facility], [address] [place] [address] Monocyte Abs 0.19 0.08 - 0.70 K/uL [facility] Comment: As part of the Differential kinsey ting performed at [facility], [address] [place] [address] Eosinophil Abs 0.03 (L) 0.04 - 0.40 K/uL [facility] [place] Comment: As part of the Differential kinsey ting performed at [facility], [address] [place] [address] Basophil Abs 0.04 0.00 - 0.10 K/uL [facility] Comment: As part of the Differential kinsey ting performed at [facility], [address] [place] [address] IG Abs 0.01 0.00 - 0.04 K/uL [place] Comment: As part of the Differential kinsey ting performed at [facility], [address] [place] [address] Specimen Anatomical Collection Method Collection Time Receive d Time (Source) Location / / Volume Laterality Blood 10/05/2022 8:57 AM 8:58 SET STAFF FITTER AM SET STAFF FITTER Sanjeev Mcgowan MD LAB BLOOD ORDERABLES Performing Organization Address City/State/ZIP Code Phon e Number [place] [address] ALT (10/05/2022 8:57 AM SET STAFF FITTER)Only the most recent of3 resultswithin the time period is included. P athologist Signature ALT 5 <=33 U/L [place] Comment: Testing performed at [facility], [address] [place] [address] Specimen Anatomical Collection Method Collection Time Receive d Time (Source) Location / / Volume Laterality Blood 10/05/2022 8:57 AM 2 8:58 SET STAFF FITTER AM SET STAFF FITTER Sanjeev Mcgowan MD LAB BLOOD ORDERABLES Performing Organization Address City/[facility]/ZIP Code Phon e [address] Aspartate Aminotransferase (10/05/2022 8:57 AM SET STAFF FITTER)Only the most recent of3 resultswithin the time period is included. athologist Signature AST 13 <=32 U/L [place] Comment: Testing performed at [facility], [address] [place] [address] Specimen Anatomical Collection Method Collection Time Receive d Time (Source) Location / / Volume Laterality Blood 10/05/2022 8:57 AM 2 8:58 SET STAFF FITTER AM SET STAFF FITTER Sanjeev Mcgowan MD LAB BLOOD ORDERABLES Performing Organization Address City/[facility]/ZIP Code Phon e Number [address] Potassium Level (10/05/2022 8:57 AM SET STAFF FITTER)Only the most recent of2 resultswithin the time period is included. athologist [facility] Potassium Lvl 4.0 3.5 - 5.1 [place] mEq/L Comment: Testing performed at [facility], [address] [place] [address] Specimen Anatomical Collection Method Collection Time Receive d Time (Source) Location / / Volume Laterality Blood 10/05/2022 8:57 AM 2 8:58 SET STAFF FITTER AM SET STAFF FITTER Sanjeev Mcgowan MD LAB BLOOD ORDERABLES Performing Organization Address City/[facility] Phon e Number [place], [place] [id number] [place] [address] Phosphorus Level (10/05/2022 8:57 AM SET STAFF FITTER)Only the most recent of3 resultswithin the time period is included. P athologist Signature Phosphorus 3.5 2.5 - 4.5 [place] mg/dL Comment: Testing performed at [facility], [address] [place] [address] Specimen Anatomical Collection Method Collection Time Receive d Time (Source) Location / / Volume Laterality Blood 10/05/2022 8:57 AM 8:58 SET STAFF FITTER AM SET STAFF FITTER Sanjeev Mcgowan MD LAB BLOOD ORDERABLES Performing Organization Address [facility] Phon e Number [place], [place] [phone] [place] [address] Alkaline Phosphatase (10/05/2022 8:57 AM SET STAFF FITTER)Only the most recent of3 results within the time period is included. P athologist Signature Alk Phos 75 35 - 104 U/L [place] Comment: Testing performed at [facility], [address] [place] [address] Specimen Anatomical Collection Method Collection Time Receive d Time (Source) Location / / Volume Laterality Blood 10/05/2022 8:57 AM 2 8:58 SET STAFF FITTER AM SET STAFF FITTER Sanjeev Mcgowan MD LAB BLOOD ORDERABLES Performing Organization Address City/[facility] Phon e Number [place], [place] [phone] [place] [address] (ABNORMAL) Magnesium Level (10/05/2022 8:57 AM SET STAFF FITTER)Only the most recent of3 resultswithin the time period is included. P athologist Signature Magnesium 1.3 (L) 1.6 - 2.6 [place] mg/dL Comment: Testing performed at [facility], [address] [place] [address] Specimen Anatomical Collection Method Collection Time Receive d Time (Source) Location / / Volume Laterality Blood 10/05/2022 8:57 AM 8:58 SET STAFF FITTER AM SET STAFF FITTER Sanjeev Mcgowan MD LAB BLOOD ORDERABLES Performing Organization Address City/State/ZIP Code Phon e Number [place], [place] [phone] [place] [address] Calcium Level (10/05/2022 8:57 AM SET STAFF FITTER)Only the most recent of3 resultswithin the time period is included. athologist Signature Calcium Lvl 8.8 8.4 - 10.2 [place] mg/dL Comment: Testing performed at [facility], [address] [place] [address] Specimen Anatomical Collection Method Collection Time Receive d Time (Source) Location / / Volume Laterality Blood 10/05/2022 8:57 AM 8:58 SET STAFF FITTER AM SET STAFF FITTER Sanjeev Mcgowan MD LAB BLOOD ORDERABLES Performing Organization Address City/[facility] Phon e Number [address] Bilirubin Total (10/05/2022 8:57 AM SET STAFF FITTER)Only the most recent of2 resultswithin the time period is included. athologist Signature Bili Total 0.5 <=1.2 mg/dL [place] Comment: Indocyanine Green (ICG) may cause falsel y elevated bilirubin results. Total and direct bilirubin must not be measured from samples containing indocyanine green. False elevation of total bilirubin can b e seen in patients with IgG concentrations above 28 g/L. Testing performed at [facility], [address] [place] [address] Specimen Anatomical Collection Method Collection Time Receive d Time (Source) Location / / Volume Laterality Blood 10/05/2022 8:57 AM 8:58 SET STAFF FITTER AM SET STAFF FITTER Sanjeev Mcgowan MD LAB BLOOD ORDERABLES Performing Organization Address City/[facility] Phon e Number [address] PETCT Contrast Enhanced Subsequent Treatment Strategy (09/17/2022 10:09 AM SET STAFF FITTER) Anatomical Region Laterality Modality Whole Body Positron Emission To mography (PET) Specimen (Source) Anatomical Collection Method Collection Time Re ceived Time Location / / Volume Laterality 09/23/2022 7:26 AM SET STAFF FITTER Impressions 09/23/2022 7:41 AM SET STAFF FITTER FDG avid adenopathy on both sides of the diaphragm associated with pleural-based disease in the left hemithorax. FDG avid hepatic metastasis and osseous metastasis as described above. Narrative 09/23/2022 7:41 AM SET STAFF FITTER FULL RESULT: Examination: Contrast-Enhanced FDG PET /CT, 09/17/2022 10:09 AM Clinical History: 76-year-old female pat ient with breast cancer, post multi modality therapy. Indication: Restaging for subsequent amy atment strategy. Comparison: CT scan of the neck Technique: F-18 fluorodeoxyglucose (FD G) 11.0 mCi [...] (ABNORMAL) POC Glucose Screen (09/17/2022 8:46 AM SET STAFF FITTER) P athologist Signature POC Glucose 121 (H) [...] Sample Type BLOOD POC TELCOR Performing Lab [facility] POC TELCO R Comment: [facility] flakito [facility] ,[facility] [place] [address], Point of Care [employer] Mechanic: Radha Greenwood MD Specimen Anatomical Collection Method Collection Time Receive d Time (Source) Location / / Volume Laterality Blood 09/17/2022 8:46 AM 8:46 SET STAFF FITTER AM SET STAFF FITTER Sanjeev Mcgowan MD POCT ORDERABLES - DEVICE Performing Organization Address City/[facility]/ZIP Code Phon e Number POC TELCOR LB Liquid Biopsy Panel V1 Interpretation and Report (09/03/2022 11:57 AM CDT) Specimen (Source) Anatomical Collection Method Collection Time Re ceived Time Location / / Volume Laterality 09/03/2022 11:57 AM CDT Narrative This result has an attachment that is no t available. Sanjeev Mcgowan MD, MDA [facility] (PARDEEP PRATT) LB [id number] Mutation Analysis with Interpretation and Report - Liquid Biopsy genotyping when no tumor tissue is available (09/03/2022 11:57 AM CDT) athologist Signature Molecular Yes [facility] (Received) Specimen Anatomical Collection Method Collection Time Receive d Time (Source) Location / / Volume Laterality Blood 09/03/2022 11:57 09/03/2022 3:46 AM CDT PM CDT Sanjeev ROBERTO MD BLOOD COLLECTIONS Performing Organization Address City/[facility] Phon e Number [facility] CANCER Unless otherwise noted, [place] [address] [place] all lab tests performed by: Division of Pathology and Laboratory Medicine Bobbi Vivi Kat LB [id number] Full Gene Mutation Analysis with Interpretation and Report - Liquid Biopsy genotyping when no tumor tissue is available (09/03/2022 11:57 AM CDT) athologist Signature Molecular Yes [facility] (Received) Specimen Anatomical Collection Method Collection Time Receive d Time (Source) Location / / Volume Laterality Blood 09/03/2022 11:57 09/03/2022 3:46 AM CDT PM CDT Sanjeev Mcgowan MD, MDA HP MD BLOOD COLLECTIONS Performing Organization Address City/[facility] Phon e Number [facility] Unless otherwise noted, [address] all lab tests performed by: Division of Pathology and Laboratory Medicine Ellis Kat MD NGS Blood Control (09/03/2022 11:57 AM CDT) athologist Signature Molecular Yes [facility] (Received) Specimen Anatomical Collection Method Collection Time Receive d Time (Source) Location / / Volume Laterality Blood 09/03/2022 11:57 09/03/2022 3:46 AM CDT PM CDT Sanjeev Mcgowan MD, MDA IP HP MOLECULAR DIAG IF ORDERABLES Performing Organization Address City/[facility] Phon e Number [facility] Unless otherwise noted, [address] all lab tests performed by: Division of Pathology and Laboratory Medicine Ellis Kat Hepatitis C Virus Ab (09/03/2022 11:57 AM CDT) [facility] gist Method Time Signature HCVAb. Non Reactive Non Reactive [facility] Comment: Antibody detection in the immunocompromi [...] MD LAB BLOOD ORDERABLES Performing Organization Address City/[facility] Phon e Number [facility] Unless otherwise noted, [address] all lab tests performed by: Division of Pathology and Laboratory Medicine Ellis Kat (ABNORMAL) Carbohydrate Antigen 15-3 (09/03/2022 11:57 AM CDT) athologist Signature CA 15-3 159.1 (H) <=25.0 U/mL [place] Comment: Results greater than 2400 U/L may not be reliable due to matrix effect with extended dilution as it exceeds the hat lining paster s recommended limit. Caution should be exercised when interpreting such sarath ues and done in conjunction with clinica l context. This test is measured by electrochemilum inescence immunoassay on Martha Evelio immunoassay analyzers. Results obtained in different methods are not interchangeable. Testing performed at [facility], [address] [place] [address] Specimen Anatomical Collection Method Collection Time Receive d Time (Source) Location / / Volume Laterality Blood 09/03/2022 11:57 09/03/2022 AM CDT 12:10 PM CDT Sanjeev Mcgowan MD LAB BLOOD ORDERABLES Performing Organization Address City/[facility] Code Phon e Number [address] Prothrombin Time with INR (09/03/2022 11:57 AM CDT)Only the most recent of2 resultswithin the time period is included. athologist Signature PT 13.6 11.9 - 14.1 [place] second(s) Comment: Testing performed at [facility], [address] [place] [address] INR 1.05 0.89 - 1.10 [place] Comment: Testing performed at [facility], [address] [place] [address] Specimen Anatomical Collection Method Collection Time Receive d Time (Source) Location / / Volume Laterality Blood 09/03/2022 11:57 09/03/2022 AM CDT 12:10 PM CDT Narrative [place] - 09/03/2022 12:35 PM CDT This lab cannot be scheduled at the [facility] locations due to collection/proccessing restrictions: [facility] and [facility]. Yvette SAHU LAB BLOOD ORDERABLES Performing Organization Address City/[facility]/[place] [address] [place] [address] BUN (09/03/2022 11:57 AM CDT)Only the most recent of2 resultswithin the time period is included. P athologist Signature BUN 15 6 - 23 mg/dL [place] Comment: Testing performed at [facility], [address] [place] [id number] Specimen Anatomical Collection Method Collection Time Receive d Time (Source) Location / / Volume Laterality Blood 09/03/2022 11:57 09/03/2022 AM CDT 12:10 PM CDT Yvette Preciado Potter ANP LAB BLOOD ORDERABLES Performing Organization Address City/[facility]/ZIP Code Phon e Number [place], [place] [id number] [place] [address] Albumin Level (09/03/2022 11:57 AM CDT)Only the most recent of2 resultswithin the time period is included. athologist Signature Albumin Lvl 3.6 3.5 - 5.2 [place] gm/dL Comment: Testing performed at [facility], [address] [place] [address] Specimen Anatomical Collection Method Collection Time Receive d Time (Source) Location / / Volume Laterality Blood 09/03/2022 11:57 09/03/2022 AM CDT 12:10 PM CDT Yvette Willsonter ANP LAB BLOOD ORDERABLES Performing Organization Address City/[facility]/[place] [address] [place] [address] EKG, 12-Lead (Scheduled) (09/03/2022) Specimen (Source) Anatomical Location Collection Method / Collectio n Time Received Time / Laterality Volume Narrative This result has an attachment that is no t available. Yvette Preciado Potter ANP ECG ORDERABLES Performing Organization Address City/[facility]/ZIP Code Phon e Number [facility] IECG Urinalysis w/Microscopic if Indicated (06/12/2022 3:01 PM CDT) Patholo gist Method Time Signature UA Color Straw Straw-Yel [facility] UA Appear Clear Clear [facility] UA Glucose NEG NEG mg/dL [facility] UA Bili NEG NEG [facility] UA Ketones NEG NEG mg/dL [facility] UA Spec Grav 1.008 1.003 - [facility] 1.035 [facility] UA Blood NEG NEG [facility] UA pH 6.5 5.0 - 9.0 [facility] UA Protein NEG NEG mg/dL [facility] UA Urobilinogen NEG NEG [facility] UA Nitrite NEG NEG [facility] UA Leuk Est NEG NEG [facility] UA Comment See Comment [facility] Comment: No microscopic exam performed, physiochemical findings are negative Specimen Anatomical Collection Method Collection Time Receive d Time (Source) Location / / Volume Laterality Urine 06/12/2022 3:01 PM 2 3:07 CDT PM CDT Karen Johnson MD URINE ORDERABLES Performing Organization Address City/[facility]/ZIP Code Phon e Number [facility] Unless otherwise noted, [address] all lab tests performed by: Division of Pathology and Laboratory Medicine [address] [place] [address] (ABNORMAL) Urine Culture (06/12/2022 3:01 PM CDT) Component Value Ref Test Analysis Performed At [facility] gist Range Method Time Signature Final Report 10 - 50,000 cfu/ml OR MD Anu NIEVES agalactiae (Group [facility]) (A) CENTER Path Review - The results have been review ed and electronically signed by Pathologist: OR Urine EDY GEE MD #[id number] A MATT (A) [facility] Specimen Anatomical Collection Method Collection Time Receive d Time (Source) Location / / Volume Laterality Urine 06/12/2022 3:01 PM 2 9:28 CDT PM CDT Karen Johnson MD MICROBIOLOGY - GENERAL ORDER [place] Performing Organization Address City/State/ZIP Code Phon e Number [facility] Unless otherwise noted, [address] all lab tests performed by: Division of Pathology and Laboratory Medicine [address] [place] [address] CT Soft Tissue Neck with Contrast (06/12/2022 [...] recommended. 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 I personally reviewed these image(s) erin ng with the resident's/fellow's interpretations, certify that if a procedure was performed I was physically present, and agree with the final report. Karen Johnson MD [facility] CT ORDERABLES HIV-1/2 Antigen and Antibodies, Fourth [...] purpose. For additional information please refer to http://education.[employer]/fa q/OPV945 (This link is being provided for informa tional/ educational purposes only.) The performance of this assay has not be en clinically validated in patients less than 2 years old. Lab test performed by: Lab Mnemonic: [employer] [address] [phone] MOLLY DOLAN MD Specimen Anatomical Collection Method Collection Time Receive d Time (Source) Location / / Volume Laterality Blood 06/12/2022 11:56 06/12/2022 AM CDT 12:42 PM CDT Karen Johnson MD LAB BLOOD ORDERABLES Performing Organization Address City/State/ZIP Code Phon e Number [facility] Fractionated Bilirubin (06/12/2022 11:56 AM CDT) athologist Signature Bili Total 0.4 <=1.2 mg/dL [facility] Comment: Indocyanine Green (ICG) may cause falsel [...] Indirect See Note 0.0 - 0.9 mg/dL OR [facility] Comment: Unable to calculate Indirect Bi lirubin result due to some parameters are outside reportable range Specimen Anatomical Collection Method Collection Time Receive d Time (Source) Location / / Volume Laterality Blood 06/12/2022 11:56 06/12/2022 AM CDT 12:26 PM CDT Karen Johnson MD LAB BLOOD ORDERABLES Performing Organization Address City/[facility]/ZIP Code Phon e Number [facility] Unless otherwise noted, [address] all lab tests performed by: Division of Pathology and Laboratory Medicine [address] [place] [address] aPTT (06/12/2022 11:56 AM CDT) athologist Signature aPTT 30.1 22.8 - 34.2 [facility]() [facility] Specimen Anatomical Collection Method Collection Time Receive d Time (Source) Location / / Volume Laterality Blood 06/12/2022 11:56 06/12/2022 AM CDT 12:12 PM CDT Karen Johnson MD LAB BLOOD ORDERABLES Performing Organization Address City/State/ZIP Code Phon e Number [facility] Unless otherwise noted, [address] all lab tests performed by: Division of Pathology and Laboratory Medicine [address] [place] [address] NT-Pro BNP (In-House) (06/12/2022 11:56 AM CDT) athologist Signature NT ProBNP 373 <=450 pg/mL [facility] Specimen Anatomical Collection Method Collection Time Receive d Time (Source) Location / / Volume Laterality Blood 06/12/2022 11:56 06/12/2022 AM CDT 12:27 PM CDT Karen Johnson MD LAB BLOOD ORDERABLES Performing Organization Address City/[facility]/ZIP [facility] Phon e Number [facility] Unless otherwise noted, [address] all lab tests performed by: Division of Pathology and Laboratory Medicine [address] [employer] Troponin T (In-House) (06/12/2022 11:56 AM CDT) athologist Signature Troponin T 15 <=18 ng/L [facility] Comment: < 19 ng/L Suggest retest [...] MD LAB BLOOD ORDERABLES Performing Organization Address City/[facility]/ZIP [facility] Phon e Number [facility] Unless otherwise noted, [address] all lab tests performed by: Division of Pathology and Laboratory Medicine [address] Single Touch Systemsvard Total Protein (06/12/2022 11:56 AM CDT) athologist Signature Total Protein 7.2 6.4 - 8.3 [facility] g/dL [facility] Specimen Anatomical Collection Method Collection Time Receive d Time (Source) Location / / Volume Laterality Blood 06/12/2022 11:56 06/12/2022 AM CDT 12:26 PM CDT Karen Johnson MD LAB BLOOD ORDERABLES Performing Organization Address City/[facility]/ZIP Code Phon e Number [facility] Unless otherwise noted, [address] all lab tests performed by: Division of Pathology and Laboratory Medicine [address] [place] [address] (ABNORMAL) Glucose Level (06/12/2022 11:56 AM CDT) athologist Signature Glucose Level 178 (H) 70 - 99 [facility] mg/dL [facility] Comment: Effective 05/27/16, the glucose reference intervals have been updated based on [place] [employer] guidelines (Standards of Medical Care [...] MD LAB BLOOD ORDERABLES Performing Organization Address City/State/[facility] Code Phon e Number [facility] Unless otherwise noted, [address] all lab tests performed by: Division of Pathology and Laboratory Medicine [address] [place] [address] (ABNORMAL) Electrolyte Panel (06/12/2022 11:56 AM CDT) P athologist Signature Sodium Lvl 134 (L) 136 - 145 [facility] mEq/L [facility] Potassium Lvl 4.2 3.5 - 5.1 [facility] mEq/L [facility] Chloride 98 98 - 107 [facility] mEq/L [facility] CO2 25 22 - 29 [facility] mEq/L [facility] Anion Gap 11 4 - 14 [facility] mEq/L [facility] Specimen Anatomical Collection Method Collection Time Receive d Time (Source) Location / / Volume Laterality Blood 06/12/2022 11:56 06/12/2022 AM CDT 12:26 PM CDT Karen Johnson MD LAB BLOOD ORDERABLES Performing Organization Address City/State/ZIP Code Phon e Number [facility] Unless otherwise noted, [place] [address] CENTER all lab tests performed by: Division of Pathology and Laboratory Medicine [address] [facility] OSI CT SFT TISS NECK (06/04/2022 9:07 PM CDT) Specimen (Source) Anatomical Location Collection Method / Collectio n Time Received Time / Laterality Volume Narrative Systemgenerated, Documentation - 9:07 PM SET STAFF FITTER Study acquired at another institution. For comparison only. No MD Nieves originated interpretation requested or a vailable. Karen Johnson MD IMG OUTSIDE IMAGE ORDERABLES [facility] MRI SPINE THORACIC (06/02/2022 4:48 AM CDT) Specimen (Source) Anatomical Location Collection Method / Collectio n Time Received Time / Laterality Volume Narrative Systemgenerated, Documentation - 4:48 AM CDT Study acquired at another institution. For comparison only. No MD Nieves originated interpretation requested or a vailable. Karen Johnson MD IMG OUTSIDE IMAGE ORDERABLES [facility] MRI SPINE LUMBAR (01/05/2022 9:07 PM SET STAFF FITTER) Specimen (Source) Anatomical Location Collection Method / Collectio n Time Received Time / Laterality Volume Narrative Systemgenerated, Documentation - 9:07 PM SET STAFF FITTER Study acquired at another institution. For comparison only. No MD [place] originated interpretation requested or a vailable. 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
--- OUTSIDE RECORDS SUMMARY | 2022-10-26 23:21 | XMS REPORT | Continuity of Care Document ---
:1945 Author Organization [facility] t Address [address] [place] [address] Care Team Providers Name Role Phone Joesph Ch MD Primary Care Physician SYSTEM, PROVIDER NOT IN Attending Clinician Unavailable Yvette Caballero Attending Clinician Sanjeev Long MD Attending Clinician SANJEEV LONG Attending Clinician Unavailable Karen Johnson MD Attending Clinician 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 NP Attending Clinician YVETTE DE LA TORRE Attending Clinician Unavailable KRISTI CLIFTON Attending Clinician Unavailable Kristi Clifton MD Attending Clinician Roel Estrella DO Attending Clinician [phone] Omar Lloyd Attending Clinician [phone] KRISTI CLIFTON Attending Clinician Unavailable Pastor LOPEZ, Melvina Benavides Attending Clinician Asim Lozoya MD Attending Clinician Provider, [facility] Attending Clinician Unavailable Lab, [facility] I Attending Clinician Unavailable Kt Diaz Attending Clinician KT MARINO Attending Clinician Unavailable Doctor Unassigned, [place] Attending Clinician Unavailable KRISTI CLIFTON Admitting Clinician Unavailable Payers Payer Name Policy Type Policy Number Effective Date Expiration Date S john AARP/MEDICARE [id number] 2021 COMPLETE 00:00:00 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 breast breast 00:00: Medical cancer cancer 00 Center Primary Primary Disease Active [facility] 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 Co llege hyroidism hyroidism 00:00: of (HCCode) (HCCode) 00 Medici n e Pain of Pain of Disease Active [facility] right hip right hip 1-12 Mu ege joint joint 00:00: of 00 Medicin e Benign Benign Disease Active [facility] hypertensi hypertensi 1-12 Co llege on with on with 00:00: of chronic chronic 00 Medicin kidney kidney e disease disease Hypothyroi Hypothyroi Disease Active [facility] dism due dism due 11-12 Colleg e to defect to defect 00:00: of in thyroid in thyroid 00 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 synthesis 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 Cance [facility] Natural daughter Cervical cancer Uni versity [facility] Natural father Colon cancer Universi ty [facility] Natural sister Stomach cancer Univer sity [facility] Social History Social Habit Start Date Stop Date Quantity Comments Source History SDOH [facility] Drinks History SDOH [facility] Alcohol Binge Medical Joseph ter Exposure to 2022-09-25 2022-10-05 [facility] 12[facility]36:00 Aliyah Rabago son (event) [facility] Alcohol intake 2022-09-03 2022-09-03 Current drinker Unive rsity of 00:00:00 00:00:00 of alcohol Aliyah Rabago son (finding) [facility] Center Alcohol Comment 2022-09-03 2022-09-03 social drinker Unive rsity of 00:00:00 00:00:00 just ever so Aliyah Thorpe often [facility] History SDOH 2022-06-18 2022-06-[address] [facility] Alcohol Frequency 00:00:00 00:00:00 Medical Center Tobacco use and 2022-06-18 2022-06-[address] Evelia kes exposure 00:00:00 00:00:00 [facility] Center Sex Assigned At [birth year] Universit y of 00:00:00 00:00:00 Aliyah Rabago [facility] Smoking Status Start Date Stop Date Source Never smoked tobacco [facility] Current some day smoker 2017-11-26 00:00:00 [facility] Medications Ordered Filled Start Stop Current Ordering Indication Dosage Frequency Signature Comments Components Source Medication Medication Date Date Medication? Clinician (SIG) Name Name zachary 2021-11 Yes Infiltratin 10mg Take 1 Univers azine 2-20 g duct tablet (10 ity of (Compazine) 00:00: carcinoma, mg) by [place] 10 mg 00 NOS of mouth MD tablet overlapping every 6 And erso lesion of (six) n breast hours as Cancer <Female; needed for Cente r Right> nausea or vomiting. letrozole 2021-11 Yes Infiltratin TAKE 1 Univers (FEMARA) 2-19 g duct TABLET BY ity of 2.5 mg 00:00: carcinoma[place] MOUTH [place] tablet 00 NOS of EVERY DAY MD overlapping Anderso lesion of n breast Cancer <Female; Center Right> aspirin 81 2021-11 Yes 81mg Take 1 Unive rs mg EC 2-05 tablet (81 ity of tablet 09:24: mg) by [place] 25 mouth daily. [facility] atorvastati 2021-11 Yes 20mg Take 1 Univ ers n (LIPITOR) 2-05 tablet (20 it y of 20 mg 09:24: mg) by Aliyah tablet 25 mouth daily. [facility] carvedilol 2021-11 Yes 12.5mg Take 1 Uni vers (COREG) 2-05 tablet ity of 12.5 mg 09:24: (12.5 mg) Aliyah tablet 25 by mouth MD twice Anderso daily. [facility] clopidogrel 2021-11 Yes 75mg Take 1 Univ ers (PLAVIX) 75 2-05 tablet (75 it y of mg tablet 09:24: mg) by Aliyah 25 mouth daily. [facility] glimepiride 2021-11 Yes 2mg Take 1 Univ ers (AMARYL) 2 2-05 tablet (2 ity of mg tablet 09:24: mg) by [place] 25 mouth twice Anderso daily. [facility] levothyroxi 2021-11 Yes 25ug Take 1 Univ ers ne 2-05 tablet (25 ity of (SYNTHROID, 09:24: mcg) by [place] as LEVOTHROID) 25 mouth MD 25 mcg daily. [facility] valsartan 2021-11 Yes 40mg Take 1 Univer s (DIOVAN) 40 2-05 tablet (40 it y of mg tablet 09:24: mg) by Aliyah 25 mouth MD daily. [facility] diphenhydrA 2021-11 Yes 1{tbl} Take 1 Un nishant MINE-acetam 2-05 tablet by ity of inophen 09:24: mouth Aliyah (TYLENOL 25 nightly as PM) 25-500 needed for And erso mg tab sleep. [facility] aspirin 81 2021-11 Yes 81mg Take 1 Unive rs mg EC 2-05 tablet (81 ity of tablet 09:24: mg) by Aliyah 25 mouth daily. [facility] atorvastati 2021-11 Yes 20mg Take 1 Univ ers n (LIPITOR) 2-05 tablet (20 it y of 20 mg 09:24: mg) by Aliyah tablet 25 mouth daily. [facility] carvedilol 2021-11 Yes 12.5mg Take 1 Uni vers (COREG) 2-05 tablet ity of 12.5 mg 09:24: (12.5 mg) Aliyah tablet 25 by mouth twice Anderso daily. [facility] clopidogrel 2021-11 Yes 75mg Take 1 Univ ers (PLAVIX) 75 2-05 tablet (75 it y of mg tablet 09:24: mg) by Aliyah 25 lucas PRATT daily. [facility] glimepiride 2021-11 Yes 2mg Take 1 Univ ers (AMARYL) 2 2-05 tablet (2 ity of mg tablet 09:24: mg) by Aliyah 25 mouth twice Anderso daily. [facility] levothyroxi 2021-11 Yes 25ug Take 1 Univ ers ne 2-05 tablet (25 ity of (SYNTHROID, 09:24: mcg) by [place] as LEVOTHROID) 25 mouth 25 mcg daily. Anderso tablet [facility] valsartan 2021-11 Yes 40mg Take 1 Univer s (DIOVAN) 40 2-05 tablet (40 it y of mg tablet 09:24: mg) by Aliyah 25 lucas PRATT daily. [facility] diphenhydrA 2021-11 Yes 1{tbl} Take 1 Un nishant MINE-acetam 2-05 tablet by ity of inophen 09:24: mouth Aliyah (TYLENOL 25 nightly as PM) 25-500 needed for And erso mg tab sleep. 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 Cyrus rso lesion of n breast Cancer <Female; Center Right> ribociclib 2021-11 Yes Infiltratin 400mg Take 2 Univers (Kisqali) 1-08 g duct tablets ity o f 400 mg/day 00:00: carcinoma, (400 mg) [place] (200 mg x 00 NOS of by mouth MD 2) tablet overlapping daily. A nderso lesion of Every n breast morning Cancer <Female; for 21 Center Right> days followed by 7 days off. Repeat every 28 days. ribociclib 2021-11 Yes Infiltratin 400mg Take 2 Univers (Kisqali) 1-08 g duct tablets ity o f 400 mg/day 00:00: carcinoma, (400 mg) [place] (200 mg x 00 NOS of by mouth MD 2) tablet overlapping daily. A nderso lesion [...] for Cente r Right> nausea or vomiting. prochlorper 2021-11- No Infiltratin 10mg Take 1 Univers azine 11-03 12-20 g duct tablet (10 ity o f (Compazine) 00:00: 00:00 carcinoma, mg) by [place] 10 mg 00 :00 NOS of mouth MD tablet overlapping every 6 And erso lesion of (six) n breast hours as Cancer <Female; needed for Cente r Right> nausea or vomiting. ribociclib 2021-11- No Infiltratin 400mg Take 2 Univers (Kisqali) 11-03 11-30 g duct tablets ity of 400 mg/day 00:00: 05:59 carcinoma, (400 mg) [place] (200 mg x 00 :00 NOS of by mouth MD 2) tablet overlapping every An derso lesion of morning n breast for 21 Cancer <Female; days. Center Right> Followed by 7 days off. Repeat every 28 days. ribociclib 2021-11- No Infiltratin 400mg Take 2 Univers (Kisqali) 11-03 11-30 g duct tablets ity of 400 mg/day 00:00: 05:59 carcinoma, (400 mg) [place] (200 mg x 00 :00 NOS of by mouth MD 2) tablet overlapping every An derso lesion of morning n breast for 21 Cancer <Female; days. Center Right> Followed by 7 days off. Repeat every 28 days. letrozole 2021-11- No Infiltratin 2.5mg Take 1 Univers (Femara) 11-03 11-23 g duct tablet ity of 2.5 mg 00:00: 20:25 carcinoma, (2.5 mg) [place] tablet 00 :24 NOS of by mouth MD overlapping daily for And erso lesion of 28 days. n breast Cancer <Female; Center Right> letrozole 2021-11- No Infiltratin 2.5mg Take 1 Univers (Femara) -03 11-23 g duct tablet ity of 2.5 mg 00:00: 20:25 carcinoma, (2.5 mg) [place] tablet 00 :24 NOS of by mouth MD overlapping daily for And erso lesion of 28 days. n breast Cancer <Female; Center Right> traMADol 2021-0 2021- No every 4 Unive rs (ULTRAM) 50 9- 12-05 (four) ity o f mg tablet 00:00: 00:00 hours. [place] 00 :00 MD Kylie nayak [facility] traMADol 2021-0 2022- No every 4 Unive rs (ULTRAM) 50 9-21 10-05 (four) ity o f mg tablet 00:00: 00:00 hours. [place] 00 :00 MD Kylie nayak [facility] carvediloL Yes 12.5mg QD Take 12.[address] (COREG) 8-27 mg by [facility] 12.5 MG 15:30: mouth Medical tablet 03 daily. [place] losartan Yes 50mg Q.5D Take 50 mg [...] mg tablet 15:30: daily. Medica l 03 Center glimepiride Yes 2mg Q.5D Take [address] (AMARYL) 2 8-27 by mouth 2 Lisa es MG tablet 15:30: (two) Medical 03 times Center daily. methylPREDN Yes 4mg QD Take [address] ISolone 8-27 by mouth [facility] (MEDROL) 4 15:30: daily. Medic al MG tablet 03 Center aspirin 81 Yes 81mg QD Take [address] MG EC 8-27 by mouth [facility] tablet 15:30: daily. Medical 03 Center gabapentin Yes 300mg Take [address] (NEURONTIN) 8-27 mg by [facility] 300 MG 15:30: mouth Medical capsule 03 every 4 Center (four) hours. traMADoL 0 Yes 50mg Take [address] (ULTRAM) 50 8-27 by mouth Luke s mg tablet 15:30: every 4 Medic al 03 (four) Center hours. carvediloL Yes 12.5mg QD Take 12.[address] (COREG) 8-27 mg by [facility]ukes 12.5 MG 15:30: mouth Medical tablet 03 daily. Center losartan 0 Yes 50mg Q.5D Take 50 mg CHI [...] mg tablet 15:30: daily. Medica l 03 Center glimepiride Yes 2mg Q.5D Take [address] (AMARYL) 2 8-27 by mouth 2 Lisa es MG tablet 15:30: (two) Medical 03 times Center daily. methylPREDN Yes 4mg QD Take [address] ISolone 8-27 by mouth [facility]ukes (MEDROL) 4 15:30: daily. Medic al MG tablet 03 Center aspirin 81 0 Yes 81mg QD Take [address] MG EC 8-27 by mouth [facility] tablet 15:30: daily. Medical 03 Center gabapentin 0 Yes 300mg Take [address] (NEURONTIN) 8-27 mg by [facility] 300 MG 15:30: mouth Medical capsule 03 every 4 Center (four) hours. traMADoL Yes 50mg Take [address] (ULTRAM) 50 8-27 by mouth Luke s mg tablet 15:30: every 4 Medic al 03 (four) Center hours. carvedilol Yes 12.5mg Take 12.5 [facility] (COREG) 8-18 mg by College 12.5 MG 09:26: mouth of tablet 25 daily. Medicin e levothyroxi Yes 25ug Take 25 Owen radha ne 8-18 mcg by [facility]age (SYNTHROID) 09:26: mouth of 25 MCG 25 daily. Medicin tablet e atorvastati Yes 20mg Take 20 mg [facility] n (LIPITOR) 8-18 by mouth Mu ege 20 MG 09:26: daily. of tablet 25 Medicin e clopidogrel Yes 75mg Take 75 mg [facility] (PLAVIX) 75 8-18 by mouth Mu ege MG Tablet 09:26: daily. of 25 Medicin e glimepiride Yes 2mg Take 2 mg [facility] (AMARYL) 2 -18 by mouth Colle ge MG tablet 09:26: two times of 25 daily. Medicin e JASWANT Yes 81mg Take 81 mg Haresh ASPIRIN EC 8-18 by mouth Colle ge LOW DOSE 81 09:26: daily. of MG 25 Medicin e tramadol Yes 50mg Take 50 mg Owen radha (ULTRAM) 50 8-07 by mouth Mu ege MG tablet 00:00: every 4 of 00 hours as Medicin needed. e losartan Yes 50mg Take 50 mg Owen radha (COZAAR) 50 7-26 by mouth Mu ege MG tablet 00:00: daily. of 00 Medicin e losartan Yes 50mg Take 1 Univers (COZAAR) 50 7-26 tablet (50 it y of mg tablet 00:00: mg) by [place] [address] mouth daily. [facility] losartan Yes 50mg Take 1 Univers (COZAAR) 50 7-26 tablet (50 it y of mg tablet 00:00: mg) by [place] [address] mouth daily. [facility] methylPREDN Yes 4mg 4 mg [facility] ISolone 4 7-19 daily. College MG TBPK 00:00: of 00 Medicin e gabapentin Yes 300mg Take 300 [facility] (NEURONTIN) 7-19 mg by Sage 300 MG 00:00: mouth of capsule 00 daily. Medicin e gabapentin Yes 300mg Take 1 Univ ers (NEURONTIN) 7-19 capsule ity o f 300 mg 00:00: (300 mg) [place] capsule 00 by mouth MD every 4 Anderso (four) n hours. Cancer Center gabapentin Yes 300mg Take 1 Univ ers (NEURONTIN) 7-19 capsule ity o f 300 mg 00:00: (300 mg) [place] capsule 00 by mouth every 4 Anderso (four) n hours. Cancer Center meloxicam Yes 2 (two) Unive rs (MOBIC) 7.5 2-15 times a ity o f mg tablet 00:00: day as [place] 00 needed. MD Kylie nayak [facility] meloxicam Yes 2 (two) Unive rs (MOBIC) 7.5 2-15 times a ity o f mg tablet 00:00: day as [place] 00 needed. MD Kylie nayak [facility] vitamin Yes 1000ug Take 1,000 Un nishant B-12 1-24 mcg by ity of (VITAMIN 16:31: mouth [place] B-12) 1,000 35 daily. Medica l mcg tablet Branch glimepiride Yes 1mg Take 1 mg U nivers 1 mg tablet 1-24 by mouth 2 it y of 16:31: (two) [place] [address] times [facility] daily. Branch atorvastati Yes 20mg Take 20 mg Univers n 20 mg 1-24 by mouth ity of tablet 16:31: at [place] [address] bedtime. Medical Branch clopidogrel Yes 75mg Take 75 mg Univers 75 mg 1-24 by mouth ity of tablet 16:31: daily. [place] [address] Medical Branch carvedilol Yes 12.5mg Take 12.5 Univers 12.5 mg 1-24 mg by ity of tablet 16:31: mouth 2 [place] [address] (two) Medical times Branch daily with meals. levothyroxi Yes 25ug Take 25 Uni vers ne 25 mcg 1-24 mcg by ity of tablet 16:31: mouth [place] 35 every Medical morning. Branch aspirin 81 Yes 81mg Take 81 mg U nivers mg EC 1-24 by mouth ity of tablet 16:31: daily. [place] [address] Medical Branch valsartan 2018-0 Yes 40mg Take 40 mg Un nishant 40 mg 1-24 by mouth ity of tablet 16:31: daily. [place] [address] Medical Branch vitamin 2018-0 Yes 1000ug Take 1,000 Un nishant B-12 1-24 mcg by ity of (VITAMIN 16:31: mouth [place] B-12) 1,000 35 daily. Medica l mcg tablet Branch glimepiride 0 Yes 1mg Take 1 mg U nivers 1 mg tablet 1-24 by mouth 2 it y of 16:31: (two) [place] [address] times Medical daily. Branch atorvastati 0 Yes 20mg Take 20 mg Univers n 20 mg 1-24 by mouth ity of tablet 16:31: at [place] [address] bedtime. Medical Branch clopidogrel 0 Yes 75mg Take 75 mg Univers 75 mg 1-24 by mouth ity of tablet 16:31: daily. [address] Branch carvedilol 0 Yes 12.5mg Take 12.5 Univers 12.5 mg 1-24 mg by ity of tablet 16:31: mouth 2 [place] [address] (two) Medical times Branch daily with meals. levothyroxi 0 Yes 25ug Take 25 Uni vers ne 25 mcg 1-24 mcg by ity of tablet 16:31: mouth [place] [address] every Medical morning. Branch aspirin 81 0 Yes 81mg Take 81 mg U nivers mg EC 1-24 by mouth ity of tablet 16:31: daily. [address] Branch valsartan 0 Yes 40mg Take 40 mg Un nishant 40 mg 1-24 by mouth ity of tablet 16:31: daily. [place] [address] Medical Branch vitamin 2018-0 Yes 1000ug Take 1,000 Un nishant B-12 1-24 mcg by ity of (VITAMIN 16:31: mouth [place] B-12) 1,000 35 daily. Medica l mcg tablet Branch glimepiride 0 Yes 1mg Take 1 mg U nivers 1 mg tablet 1-24 by mouth 2 it y of 16:31: (two) [place] [address] times Medical daily. Branch atorvastati 0 Yes 20mg Take 20 mg Univers n 20 mg 1-24 by mouth ity of tablet 16:31: at [place] [address] bedtime. Medical Branch clopidogrel 0 Yes 75mg Take 75 mg Univers 75 mg 1-24 by mouth ity of tablet 16:31: daily. [place] [address] Medical Branch carvedilol 2017-0 Yes 12.5mg Take 12.5 Univers 12.5 mg 1-24 mg by ity of tablet 16:31: mouth 2 [place] [address] (two) Medical times [place] daily with meals. levothyroxi 2017-0 Yes 25ug Take 25 Uni vers ne 25 mcg 1-24 mcg by ity of tablet 16:31: mouth [place] [address] every Medical morning. Branch aspirin 81 0 Yes 81mg Take 81 mg U nivers mg EC 1-24 by mouth ity of tablet 16:31: daily. [place] [address] Medical Branch valsartan 0 Yes 40mg Take 40 mg Un nishant 40 mg 1-24 by mouth ity of tablet 16:31: daily. [address] vitamin 2018-0 Yes 1000ug Take 1,000 Un nishant B-12 1-24 mcg by ity of (VITAMIN 16:31: mouth [place] B-12) 1,000 35 daily. Medica l mcg tablet Branch glimepiride 0 Yes 1mg Take 1 mg U nivers 1 mg tablet 1-24 by mouth 2 it y of 16:31: (two) [place] [address] times [facility] daily. Branch atorvastati 0 Yes 20mg Take 20 mg Univers n 20 mg 1-24 by mouth ity of tablet 16:31: at [place] [address] bedtime. Medical Branch clopidogrel 0 Yes 75mg Take 75 mg Univers 75 mg 1-24 by mouth ity of tablet 16:31: daily. [address] carvedilol 0 Yes 12.5mg Take 12.5 Univers 12.5 mg 1-24 mg by ity of tablet 16:31: mouth 2 [place] [address] (two) Medical times [place] daily with meals. levothyroxi 2018-0 Yes 25ug Take 25 Uni vers ne 25 mcg 1-24 mcg by ity of tablet 16:31: mouth [place] [address] every Medical morning. Branch aspirin 81 0 Yes 81mg Take 81 mg U nivers mg EC 1-24 by mouth ity of tablet 16:31: daily. [place] [address] Medical Branch valsartan 2017-0 Yes 40mg Take 40 mg Un nishant 40 mg 1-24 by mouth ity of tablet 16:31: daily. [address] Branch Vital Signs Vital Name Observation Time Observation Value Comments Source HEIGHT 2022-06-26 09:40:00 147.3 cm WEIGHT 2022-06-26 09:40:00 46.72 kg HEIGHT 2022-06-18 14:04:00 147.3 cm WEIGHT 2022-06-18 14:04:00 50.349 kg HEIGHT 2022-06-26 09:40:00 147.3 cm WEIGHT 2022-06-26 09:40:00 46.72 kg HEIGHT 2022-06-18 14:04:00 147.3 cm WEIGHT 2022-06-18 14:04:00 50.349 kg HEIGHT 2022-06-26 09:40:00 147.3 cm WEIGHT 2022-06-26 09:40:00 46.72 kg HEIGHT 2022-06-18 14:04:00 147.3 cm WEIGHT 2022-06-18 14:04:00 50.349 kg Systolic blood 2022-06-18 14:12:00 133 mm[Hg] [facility] Medicine Diastolic blood 2022-06-18 14:12:00 61 mm[Hg] [facility] Medicine Heart rate 2022-06-18 14:12:00 73 /min [facility] Body temperature 2022-06-18 14:12:00 36.89 Cordelia [facility] Body height 2022-06-18 14:12:00 147.3 cm [facility] Body weight 2022-06-18 14:12:00 50.44 kg [facility] BMI 2022-06-18 14:12:00 23.24 kg/m2 [facility] Body weight 2022-10-05 15:13:00 47.3 kg Universi ty [facility] MD [facility] BMI 2022-10-05 15:13:00 23.96 kg/m2 Universi ty [facility] MD [facility] Systolic blood 2022-10-05 15:11:08 153 mm[Hg] Univer sity of pressure Aliyah [facility] Diastolic blood 2022-10-05 15:11:08 75 mm[Hg] Unive rsity of pressure Aliyah [facility] Heart rate 2022-10-05 15:11:08 75 /min [facility] [place] MD [facility] Body temperature 2022-10-05 15:11:08 37 Cordelia [facility] MD [facility] Respiratory rate 2022-10-05 15:11:08 18 /min [facility] MD [place] [facility] Oxygen saturation in 2022-10-05 15:11:08 97 /min University Arterial blood by Aliyah estradarswilman Pulse oximetry [facility] Body height 2022-09-17 14:58:00 [facility]5 [facility] [place] [facility] Systolic blood 2022-06-26 15:00:00 158 mm[Hg] [facility] Diastolic blood 2022-06-26 15:00:00 78 mm[Hg] [facility] Heart rate 2022-06-26 15:00:00 87 /min [facility] Body temperature 2022-06-26 15:00:00 36.33 Cordelia [facility] Respiratory rate 2022-06-26 15:00:00 14 /min [facility] Oxygen saturation in 2022-06-26 15:00:00 96 /min [facility] Arterial blood by Medical Ya nter Pulse oximetry Body height 2022-06-26 09:40:00 147.3 cm [facility] Body weight 2022-06-26 09:40:00 46.72 kg [facility] BMI 2022-06-26 09:40:00 21.53 kg/m2 [facility] Procedures Procedure Date / Time Performing Clinician Source Performed COMPLETE BLOOD COUNT W/ 2022-10-05 14:57:20 Sanjeev Long [facility] BILIRUBIN TOTAL 2022-10-05 14:57:20 Sanjeev Long [facility] ALKALINE PHOSPHATASE 2022-10-05 14:57:20 Sanjeev Long [facility] [place] ALANINE AMINOTRANSFERASE 2022-10-05 14:57:20 Sanjeev Long [facility] ASPARTATE AMINOTRANSFERASE 2022-10-05 14:57:20 Sanjeev Long [facility] CALCIUM LEVEL TOTAL 2022-10-05 14:57:20 Sanjeev Long [facility] PHOSPHORUS LEVEL 2022-10-05 14:57:20 Sanjeev Long [facility] MAGNESIUM LEVEL 2022-10-05 14:57:20 Sanjeev Long [facility] SERUM CREATININE 2022-10-05 14:57:20 Sanjeev Long [facility] POTASSIUM LEVEL 2022-10-05 14:57:20 Sanjeev Long [facility] Results CBC 2022-10-05 14:57:20 Sanjeev Long [facility] MANUAL DIFFERENTIAL 2022-10-05 14:57:20 Sanjeev Long [facility] SERUM CREATININE 2022-10-05 14:57:20 Sanjeev Long [facility] .GLOMERULAR FILTRATION 2022-10-05 14:57:20 Sanjeev Long [facility] RATE [facility] PETCT CONTRAST ENHANCED 2022-09-17 16:09:57 Sanjeev Long [facility] SUBSEQUENT TREATMENT [facility] Cancer STRATEGY Center POC GLUCOSE SCREEN 2022-09-17 14:46:00 Sanjeev Long [facility] HP LB [id number] FULL GENE 2022-09-03 16:57:00 Sanjeev Long [facility] MUTATION ANALYSIS [facility] Ca ncer COLLECTION, BLOOD Center HP LB PIK3CA MUTATION 2022-09-03 16:57:00 Sanjeev Long [facility] ANALYSIS COLLECTION, BLOOD NM [facility] HEPATITIS C VIRUS ANTIBODY 2022-09-03 16:57:00 Sanjeev Long [facility] COMPLETE BLOOD COUNT W/ 2022-09-03 16:57:00 [facility] BLOOD UREA NITROGEN 2022-09-03 16:57:00 Y[facility]re [facility] BILIRUBIN TOTAL 2022-09-03 16:57:00 Yvette De La Torre [facility] ALKALINE PHOSPHATASE 2022-09-03 16:57:00 Yvette De La Torre [facility] ity [facility] ALANINE AMINOTRANSFERASE 2022-09-03 16:57:00 Yvetet De La Torre [facility] ASPARTATE AMINOTRANSFERASE 2022-09-03 16:57:00 Yvette De La Torre [facility] CALCIUM LEVEL TOTAL 2022-09-03 16:57:00 Yvette De La Torre [facility] PHOSPHORUS LEVEL 2022-09-03 16:57:00 Yvette De La Torre [facility] MAGNESIUM LEVEL 2022-09-03 16:57:00 Yvette De La Torre [place] [facility] SERUM CREATININE 2022-09-03 16:57:00 Yvette De La Torre [facility] POTASSIUM LEVEL 2022-09-03 16:57:00 Yvette De La Torre [place] [facility] PROTHROMBIN TIME 2022-09-03 16:57:00 Yvette De La Torre [facility] ALBUMIN LEVEL 2022-09-03 16:57:00 Yvette De La Torre [place] [facility] CANCER ANTIGEN 15-3 2022-09-03 16:57:00 Sanjeev Long [facility] Results CBC 2022-09-03 16:57:00 Yvette De La Torre [place] [facility] MANUAL DIFFERENTIAL 2022-09-03 16:57:00 Yvette De La Torre [facility] SERUM CREATININE 2022-09-03 16:57:00 Yvette De La Torre [facility] .GLOMERULAR FILTRATION 2022-09-03 16:57:00 Yvette De La Torre [facility] RATE [facility] NGS BLOOD CONTROL 2022-09-03 16:57:00 [facility] HP LB LIQUID BIOPSY PANEL 2022-09-03 16:57:00 Sanjeev Long [facility] V1 INTERPRETATION AND MD Kylie nayak Cancer REPORT Center EKG, 12-LEAD (SCHEDULED) 2022-09-03 00:00:00 Yvette De La Torre [facility] XR CHEST 1 VIEW PORTABLE / 2022-06-26 13:53:00 Yolie Cortez [facility] BEDSIDE [facility] FINE NEEDLE ASPIRATE BY 2022-06-26 13:06:00 [facility] EBUS FNA REQUEST 2022-06-26 13:06:00 Jose Kristi [facility] FINE NEEDLE ASPIRATE BY 2022-06-26 13:05:00 Kristi [facility] Center EBUS FNA REQUEST 2022-06-26 13:05:00 Cristiano [facility] BRON[facility]OSCOPY 2022-06-26 11:02:00 Jose Kristi [facility] ENDOBRONCHIAL ULTRASOUND, 2022-06-26 11:02:00 Kristi Clifton [facility] WITH THERAPEUTIC Center BRONCHOSCOPY POCT-GLUCOSE METER 2022-06-26 09:56:00 Kristi Clifton [facility] URINALYSIS WITH 2022-06-12 20:01:00 Karen Johnson [facility] MICROSCOPIC IF INDICATED [facility] URINE CULTURE 2022-06-12 20:01:00 Karen Johnson [facility] CT SOFT TISSUE NECK W 2022-06-12 18:57:45 Karen Johnson [facility] CONTRAST [facility] ALBUMIN LEVEL 2022-06-12 16:56:00 Karen Johnson [facility] ALKALINE PHOSPHATASE 2022-06-12 16:56:00 Karen [facility] ALANINE AMINOTRANSFERASE 2022-06-12 16:56:00 Karen Johnson [facility] ASPARTATE AMINOTRANSFERASE 2022-06-12 16:56:00 Karen Johnson [facility] TOTAL PROTEIN 2022-06-12 16:56:00 Karen Johnson [facility] FRACTIONATED BILIRUBIN 2022-06-12 16:56:00 Karen Johnson [facility] COMPLETE BLOOD COUNT W/ 2022-06-12 16:56:00 [facility] DIFFERENTIAL [facility] COMPREHENSIVE METABOLIC 2022-06-12 16:56:00 [facility] PANEL [facility] MAGNESIUM LEVEL 2022-06-12 16:56:00 Karen Johnson [facility] PHOSPHORUS LEVEL 2022-06-12 16:56:00 Karen Johnson [facility] HIV-1/2 ANTIGEN AND 2022-06-12 16:56:00 Karen Johnson [facility] ANTIBODIES, FOURTH [facility] PROTHROMBIN TIME 2022-06-12 16:56:00 Karen Johnson [facility] APTT 2022-06-12 16:56:00 Karen Johnson [facility] NT PRO BNP 2022-06-12 16:56:00 [facility] TROPONIN T 2022-06-12 16:56:00 Karen Johnson [facility] Results CBC 2022-06-12 16:56:00 Karen Johnson [facility] MANUAL DIFFERENTIAL 2022-06-12 16:56:00 Karen Johnson [facility] [place] GLUCOSE LEVEL 2022-06-12 16:56:00 Karen Johnson [facility] BLOOD UREA NITROGEN 2022-06-12 16:56:00 Karen Johnson [facility] [place] ELECTROLYTE PANEL 2022-06-12 16:56:00 Karen Johnson ty [facility] SERUM CREATININE 2022-06-12 16:56:00 Karen Johnson y [facility] .GLOMERULAR FILTRATION 2022-06-12 16:56:00 Karen Johnson [facility] RATE [facility] CALCIUM LEVEL TOTAL 2022-06-12 16:56:00 Karen Johnson sity [facility] OSI CT SFT TISS NECK 2022-06-05 02:07:00 Karen [facility] OSI MRI SPINE THORACIC 2022-06-02 09:48:[address] OSI MRI SPINE LUMBAR 2022-01-06 03:07:00 Karen Johnson [facility] Plan of Care Planned Activity Planned Date Details Comments Source Future Scheduled 2023-06-[address] [facility] Test 00:00:00 [facility] Medical Cent[facility] r Screening (12+) [code = Tobacco Cessation Counseling and Screening (12+)] Future Scheduled 2023-06-[address] [facility] Test 00:00:00 [facility]ing [facility] Medical Cente r Screening (12+) [code = Tobacco Cessation Counseling and Screening (12+)] Future Scheduled 2022-10-21 COVID-19 Vaccination [facility] [place] [facility] 13:38:07 (#1) [code = COVID-19 [facility] Vaccination (#1)] Center Future Scheduled 2022-10-14 COVID-19 Vaccination [facility] [place] Test 13:17:37 (#1) [code = COVID-19 [facility] Vaccination (#1)] Center Future Scheduled 2022-07-02 INFLUENZA VACCINE (#1) [facility] 00:00[facility]00 [code = INFLUENZA Medical Ce nter VACCINE (#1)] Future Scheduled 2022-07-02 INFLUENZA VACCINE (#1) [facility] 00:00:00 [code = INFLUENZA Medical Ce nter VACCINE (#1)] Future Scheduled 2022-06-24 Screening for [facility] Col lege of Test 17:15:51 malignant neoplasm of Medici ne colon (procedure) [code = 195569742] Future Scheduled 2022-06-24 Screening for [facility] Col lege of Test 17:15:51 malignant neoplasm of Medici ne breast (procedure) [code = 524649873] Future Scheduled 2022-06-24 COVID-19 Vaccine (#1) [facility] of Test 17:15:51 [code = COVID-19 Medicine Vaccine (#1)] Future Scheduled 2022-06-24 Pneumococcal 65+ (1 - Ba [facility] of Test 17:15:51 PCV) [code = Medicine Pneumococcal 65+ (1 - PCV)] Future Scheduled 2022-06-24 TETANUS SHOT (ADULT) [facility] of Test 17:15:51 [code = TETANUS SHOT Medicin e (ADULT)] Future Scheduled 2022-06-24 Diabetic foot [facility] Col lege of Test 17:15:51 examination Medicine (regime/therapy) [code = 897268137] Future Scheduled 2022-06-[address] [facility] ollege of Test 17:15:51 RETINOPATHY SCREENING Medici ne [code = ANNUAL DIABETIC RETINOPATHY SCREENING] Future Scheduled 2022-06-24 Hepatitis C screening [facility] of Test 17:15:51 (procedure) [code = Medicine 322633965] Future Scheduled 2022-06-24 ZOSTER VACCINE (1 of [facility] of Test 17:15:51 2) [code = ZOSTER Medicine VACCINE (1 of 2)] Future Scheduled 2022-06-24 Screening for [facility] Col lege of Test 17:15:51 osteoporosis Medicine (procedure) [code = 312597586] Future Scheduled 2022-06-24 MEDIC[facility] IPPE [facility] Test 17:15:51 TO MEDICARE) [code = Medicin e MEDICARE IPPE (WELCOME TO MEDICARE)] Future Scheduled 2022-06-24 FLU VACCINE > 6 MONTHS [facility] Test 17:15:51 [code = FLU VACCINE > Medici ne 6 MONTHS] Future Scheduled 2022-06-24 FALL SCREEN [code = [facility] Test 17:15:51 FALL SCREEN] Medicine Future Scheduled 2021-12-02 Medicare IPPE (WELCOME [facility] 00:00:00 TO MEDICARE) [code = Medical [place] Medicare IPPE (WELCOME TO MEDICARE)] Future Scheduled 2021-12-02 Medicare IPPE (WELCOME [facility] 00:00:00 TO MEDICARE) [code = Medical Center Medicare IPPE (WELCOME TO MEDICARE)] Future Scheduled 2011 PNEUMOCOCCAL 65+ YRS [facility] Test 00:00:00 (1 - PCV) [code = Medical Ce nter PNEUMOCOCCAL 65+ YRS (1 - PCV)] Future Scheduled 2011 PNEUMOCOCCAL 65+ YRS [facility] Test 00:00:00 (1 - PCV) [code = Medical Ce nter PNEUMOCOCCAL 65+ YRS (1 - PCV)] Future Scheduled 1996 SHINGLES VACCINES ([address] [facility] Test 00:00:00 of 2) [code = SHINGLES Medic al Center VACCINES (1 of 2)] Future Scheduled 1996 SHINGLES VACCINES ([address] [facility] Test 00:00:00 of 2) [code = SHINGLES Medic al Center VACCINES (1 of 2)] Future Scheduled 1965 DTAP/TDAP/TD [facility]ACCINES [facility] 00:00:00 (1 - Tdap) [code = Medical C enter DTAP/TDAP/TD VACCINES (1 - Tdap)] Future Scheduled 1965 DTAP/TDAP/TD [facility]ACCINES [facility] 00:00:00 (1 - Tdap) [code = Medical C enter DTAP/TDAP/TD VACCINES (1 - Tdap)] Future Scheduled 1964 HEPATITIS C [facility]CRE[facility]ING [facility] 00:00:00 [code = HEPATITIS C Medical Center SCREENING] Future Scheduled 1964 HEPATITIS C [facility]CRE[facility]ING [facility] 00:00:00 [code = HEPATITIS C Medical Center SCREENING] Future Scheduled 1947-04-16 COVID-19 VACCINE (#1) [facility] 00:00:00 [code = COVID-[address] VACCINE (#1)] Future Scheduled 1947-04-16 COVID-19 VACCINE (#1) [facility] 00:00:00 [code = COVID-[address] VACCINE (#1)] Future Scheduled [address] [facility] Test 00:00:00 (combo) [code = CT Medical C enter Colonography (combo)] Future Scheduled [address] [facility] Test 00:00:00 malignant neoplasm of Medica l Center colon (procedure) [code = 280191471] Future Scheduled [address] [facility] Test 00:00:00 malignant neoplasm of Medica l Center colon (procedure) [code = 840982996] Future Scheduled 1946 DXA SCAN [code = DXA [facility] 00:00:00 SCAN] [facility] Future Scheduled [address] [facility] 00:00:00 [facility]procedure[facility] [code = 562858096] Future Scheduled [address] [facility] 00:00:00 [facility] (procedure) [code = 956203101] Future Scheduled 1945 Sigmoidoscopy [code = [facility] Sigmoidoscopy] [facility] Future Scheduled 1946 DXA SCAN [code = DXA [facility] Test 00:00:00 SCAN] [facility] Encounters Start End Encounter Admission Attending Care Care Encounter Source Date/Time Date/Time Type Type Clinicians Facility Department ID 2022-09-09 Outpatient SYSTEM, RICARDO SILVA [id number] 14:33:10 PROVIDER zEekiel nayak 2022-07-10 Outpatient SYSTEM, [facility]ARD[facility] SILVA [id number] 16:38:30 PROVIDER Ezekiel nayak 2021-12-16 [facility] [id number] [facility] 14:14:03 [facility] 2022-10-19 2022-10-19 Kayla De La Torre, 1.2.840.1 [id number] Univers 00:00:00 00:00:00 Yvette P 77998.1.1 ity of 3.412.2.7 Aliyah .Tod557538 .8 [facility] 2022-10-05 2022-10-05 Missy De La Torre, 1.2.840.1 [id number] Univers 11:00:00 12:43:06 Yvette P 97194.1.1 ity of 3.412.2.7 [place] .3.361054 MD [facility] 2022-10-05 2022-10-05 Infusion Potter, 1.2.840.1 [id number] Univers 11:00:00 12:43:06 Yvette P 54324.1.1 ity of 3.412.2.7 [place] .3.082395 MD [facility] 2022-10-05 2022-10-05 Follow-Up ZAHIDA Lopestre, 1.2.840.1 [id number] Univers 10:00:00 10:00:00 Sanjeev Burns 86394.1.1 ity of 3.412.2.7 [place] .3.216376 MD [facility] 2022-10-05 2022-10-05 Follow-Up Mariannetre, 1.2.840.1 [id number] Univers 10:00:00 10:00:00 Sanjeev Burns 53882.1.1 ity of 3.412.2.7 [place] .3.443637 MD [facility] 2022-10-05 2022-10-05 Outpatient ZAHIDA RODNEYNGHIA, [facility] [id number] 08:50:21 08:53:54 SANJEEV knox 2022-10-05 2022-10-05 Travel 1.2.840.1 1.2.202.982 [id number] Univers 00:00:00 00:00:00 71686.1.1 350.1.13.41 ity of 3.412.2.7 [place].3.698 [place] .3.454[place] 084.8 MD [facility] 2022-10-05 2022-10-05 Travel 1.2.840.1 1.2.820.214 [id number] Univers 00:00:00 00:00:00 50223.1.1 350.1.13.41 ity of 3.412.2.7 [place]7.3.698 [place] .3.571777 084.8 MD .8 [facility] 2022-09-23 2022-09-23 Refrobert De La Torre, 1.2.840.1 [id number] Univers 00:00:00 00:00:00 Yvette P 39296.1.1 ity of 3.412.2.7 [place] .3.213296 MD [facility] 2022-09-23 2022-09-23 Refrobert De La Torre, 1.2.840.1 [id number] Univers 00:00:00 00:00:00 Yvette P 94358.1.1 ity of 3.412.2.7 [place] .3.107989 MD [facility] 2022-09-17 2022-09-17 Ancillary ZAHIDA Long, 1.2.840.1 [id number] Univers 08:30:00 11:00:00 Procedure Sanjeev A 71009.1.1 it y of 3.412.2.7 [place] .3.368509 MD [facility] 2022-09-17 2022-09-17 Ancillary Mouabbi, 1.2.840.1 [id number] Univers 08:30:00 11:00:00 Procedure Sanjeev A 75002.1.1 it y of 3.412.2.7 [place] .3.083980 MD [facility] 2022-09-17 2022-09-17 Travel 1.2.840.1 1.2.997.234 [id number] Univers 00:00:00 00:00:00 93912.1.1 350.1.13.41 ity of 3.412.2.7 [place]7.3.698 [place] .3.252066 084.8 MD [facility] 2022-09-17 2022-09-17 Travel 1.2.840.1 1.2.063.753 [id number] Univers 00:00:00 00:00:00 75679.1.1 350.1.13.41 ity of 3.412.2.7 [place]7.3.698 [place] .3.702753 084.8 .8 [facility] 2022-09-16 2022-09-16 Ancillary ZAHIDA Johnson, 1.2.840.1 [id number] Univers 21:10:00 21:15:00 Procedure Karen 78472.1.1 it y of 3.412.2.7 [place] .3.269402 .8 [facility] 2022-09-16 2022-09-16 Ancillary Alex, 1.2.840.1 [id number] Univers 21:10:00 21:15:00 Procedure Karen 79813.1.1 it y of 3.412.2.7 [place] .3.088901 MD Sandoval8 [facility] 2022-09-16 2022-09-16 Ancillary ZAHIDA Johnson, 1.2.840.1 [id number] Univers 21:05:00 21:10:00 Procedure Karen 28840.1.1 it y of 3.412.2.7 [place] .3.864147 MD Sandoval8 [facility] 2022-09-16 2022-09-16 Ancillary Alex, 1.2.840.1 [id number] Univers 21:05:00 21:10:00 Procedure Karen 12189.1.1 it y of 3.412.2.7 [place] .3.064594 MD [facility] 2022-09-11 2022-09-11 Renny De La Torre, 1.2.840.1 [id number] Univers 00:00:00 00:00:00 Only Yvette P 08605.1.1 ity of 3.412.2.7 [place] .3.676292 MD [facility] 2022-09-11 2022-09-11 Renny De La Torre 1.2.840.1 [id number] Univers 00:00:00 00:00:00 Only Yvette P 99661.1.1 ity of 3.412.2.7 [place] .3.990407 MD Sandoval8 [facility] 2022-09-08 2022-09-08 Orders 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 1.2.840.1 [id number] Univers 00:00:00 00:00:00 Only Misa 48621.1.1 ity of 3.412.2.7 [place] .3.226238 MD Sandoval8 [facility] 2022-09-08 2022-09-08 Orders Roslyn, 1.2.840.1 [id number] Univers 00:00:00 00:00:00 Only Sanjeev A 25908.1.1 ity of 3.412.2.7 [place] .3.293214 MD Sandoval8 [facility] 2022-09-08 2022-09-08 Orders 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 1.2.840.1 [id number] Univers 00:00:00 00:00:00 Only Misa 68127.1.1 ity of 3.412.2.7 [place] .3.826426 MD Sandoval8 [facility] 2022-09-08 2022-09-08 Orders Roslyn, 1.2.840.1 [id number] Univers 00:00:00 00:00:00 Only Sanjeev A 83474.1.1 ity of 3.412.2.7 [place] .3.089529 MD Sandoval8 [facility] 2022-09-04 2022-09-04 Renny De La Torre 1.2.840.1 [id number] Univers 00:00:00 00:00:00 Only Yvette P 34392.1.1 ity of 3.412.2.7 [place] .3.980474 MD Sandoval8 [facility] 2022-09-04 2022-09-04 Renny De La Torre 1.2.840.1 [id number] Univers 00:00:00 00:00:00 Only Yvette P 07314.1.1 ity of 3.412.2.7 [place] .3.344975 MD Sandoval8 [facility] 2022-09-03 2022-09-03 Outpatient ZAHIDA DE LA TORRE [facility] [id number] 12:11:29 13:30:10 YVETTE Ezekiel abilio nayak 2022-09-03 2022-09-03 Outpatient ZAHIDA LONG [facility] [id number] 11:56:39 12:01:20 SANJEEV Ezekiel abilio nayak 2022-09-03 2022-09-03 Office ZAHIDA Long, 1.2.840.1 [id number] [facility] 11:00:00 11:40:00 Visit Sanjeev Burns 95472.1.1 ity of 3.412.2.7 [place] .3.831975 MD Sandoval8 [facility] 2022-09-03 2022-09-03 Office Roslyn, 1.2.840.1 [id number] [facility] 11:00:00 11:40:00 Visit Sanjeev Burns 04905.1.1 ity of 3.412.2.7 [place] .3.243468 MD [facility] 2022-09-03 2022-09-03 Orders Roslyn, 1.2.840.1 [id number] Univers 00:00:00 00:00:00 Only Sanjeev Burns 83845.1.1 ity of 3.412.2.7 [place] .3.515099 MD [facility] 2022-09-03 2022-09-03 Travel 1.2.840.1 1.2.516.070 [id number] Univers 00:00:00 00:00:00 49282.1.1 350.1.13.41 ity of 3.412.2.7 [place].3.698 [place] .3.640494 084.8 MD [facility] 2022-09-03 2022-09-03 Renny Long, 1.2.840.1 [id number] Univers 00:00:00 00:00:00 Only Sanjeev Burns 73873.1.1 ity of 3.412.2.7 [place] .3.044604 MD [facility] 2022-09-03 2022-09-03 Travel 1.2.840.1 1.2.082.804 [id number] Univers 00:00:00 00:00:00 68984.1.1 350.1.13.41 ity of 3.412.2.7 [place]7.3.698 [place] .3.572463 084.8 MD .8 [facility] 2022-06-26 2022-06-26 Outpatient [facility] [id number] [facility] 09:19:00 23:59:00 Nicki 2022-06-26 2022-06-26 Outpatient [facility] Surgery [id number] [facility] 09:19:00 15:30:00 KRISTI 2022-06-26 2022-06-26 [facility] [id number] 09:19:00 15:30:00 Encounter [facility] 2022-06-26 2022-06-26 [facility] [id number] 09:19:00 15:30:00 Encounter [facility] 2022-06-26 2022-06-26 [id number] 11:13:00 13:14[facility]00 [facility]22-[facility] 2022-06-26 [facility] [id number] [facility] 11:13:00 13:14:00 [facility] 2022-06-26 2022-06-26 [facility] [id number] 10:00:00 12:14:00 [facility] 2022-06-26 2022-06-26 [facility] [id number] 10:00:00 12:14:00 [facility] 2022-06-18 2022-06-18 Outpatient [facility] [id number] [facility] 14:23:32 23:59:00 2022-06-18 2022-06-[address] [facility] [id number] 13:45:00 23:59:00 Encounter [facility] 2022-06-18 2022-06-[address] [facility] [id number] 13:45:00 23:59:00 Encounter [facility] 2022-06-18 2022-06-18 Office ROSETTA CLIFTON 1.2.840.114 [id number] [facility] 08:57:48 13:08:43 Visit KRISTI AMBULATOR 350.1.13.21 College Y 0.2.7.2.686 of [id number] Medi radha 810 e 2022-06-18 2022-06-18 Travel [facility] [id number] [facility] 00:[facility]00 00:00:00 [facility] 2022-06-18 2022-06-18 Travel [facility] [id number] [facility] 00:[facility]:00 00:00:00 [facility] 2022-06-16 2022-06-16 Ancillary ZAHIDA Johnson, 1.2.840.1 [id number] Univers 03:50:00 03:55:00 Procedure Karen 80613.1.1 it y of 3.412.2.7 [place] .3.511090 MD [facility] 2022-06-16 2022-06-16 Ancillary Alex, 1.2.840.1 [id number] Univers 03:50:00 03:55:00 Procedure Karen 73039.1.1 it y of 3.412.2.7 [place] .3.244222 MD [facility] 2022-06-13 2022-06-13 Telephone Pastor 1.2.840.1 [id number] [facility] 00:00:00 00:00:00 Melvian M 19324.1.1 ity of 3.412.2.7 [place] .3.621296 MD Sandoval8 [facility] 2022-06-13 2022-06-13 Telephone Pastor, 1.2.840.1 [id number] Univers 00:00:00 00:00:00 Melvina M 88074.1.1 ity of 3.412.2.7 [place] .3.659344 .8 [facility] 2022-06-12 2022-06-12 Emergency UR Alao, 1.2.840.1 [id number] Univers 11:16:00 19:36:00 Titilola T 10209.1.1 i ty of 3.412.2.7 [place] .3.551252 .8 [facility] 2022-06-12 2022-06-12 Emergency Alao, 1.2.840.1 [id number] Univers 11:16:00 19:36:00 Titilola T 28341.1.1 i ty of 3.412.2.7 [place] .3.737803 .8 [facility] 2020-09-17 2020-09-17 Telephone Provider, [facility] 1.2.840.114 [id number] Univers 00:00:00 00:00:00 [facility] 350.1.13.10 ity of Care [place] 4.2.7.2.686 Patrick as Professio [phone] [address] Office Building [facility] 2020-09-17 2020-09-17 Telephone Provider, [facility] 1.2.840.114 [id number] 00:00:00 00:00:00 [facility] 350.1.13.10 Care [place] 4.2.7.2.686 Professio [phone] [place] [address] Office Building [facility] 2020-09-16 2020-09-16 Laboratory Lab, [facility] Fam Pob I [facility] 1.2. 840.114 [id number] Univers 13:20:22 13:28:58 Only Jason, [facility] 350.1.13.10 ity of [place] 4.2.7.2.686 Patrick as Professio [phone] [address] Office Building [facility] 2020-09-16 2020-09-16 Laboratory Lab, [facility] 1.2.840.114 [id number] 13:20:22 13:28:58 Only Fam Pob I Health 350.1.13.10 [place] [id number] Professio [phone] [facility] [address] One 2020-09-16 2020-09-16 Outpatient R JASON, [facility] [id number] Univers 13:20:00 13:20:00 KT ity of [facility] 2020-09-16 2020-09-16 Letter Doctor DINA [id number] Univers 00:00:00 00:00:00 (Out) Unassigned, MEREDITH [id number] ity of [place] [facility] 4.2.7.2.686 Patrick as [phone] [address] Results Test Description Test Time Test Comments Results Result Comments Source POC Glucose Screen 2022-09-17 15:05:00 Test Item Value Reference Range Interpretation Comme nts POC Glucose (test code = 5651) 121 mg/dL 70-99 H Capillary blood samples, e.g. obtained by [employer], may have inaccurate results in patients with [...] BLOOD 9554) Performing Lab (test code = [facility] [address]) [place] MD [place] [facility] ,[address] [place] [address], Point of Care Book Cleaner: Radha harris MD Lab Interpretation (test code Abnormal = 49436-4) [facility] MD [facility] Glucose [id number] 15:05:00 Test Item Value Reference Range Interpretation Comments POC Glucose (test 121 mg/dL 70-99 H Capillary blood code = 5651) samples, e.g. obtained by fingerstick, ma y have inaccurate resu lts in patients with decreased perip heral blood flow. Met hod description: Al l results are geneva sured using Electrochemistr y test methodology. Th e glucose in the sample mixes with the reagents on the test strip. The reac tion produces an aki ctric current. The am ount of current prod uced is proportional to the glucose concentration i n the blood. PO Sample Type (test BLOOD code = 9554) Performing Lab (test [facility] code = 60408) [facility] ,[address] [place] [address], Point of Care Lab Dir arpit: Radha Greenwood MD Lab Interpretation Abnormal (test code = 95948-0) [facility] Center[facility]le Asp[facility] by [facility] 2022-07-14 14:04:03 Test Item Value Reference Range Interpretation Comments Case Report (test code = Medical Cytology 104) Report Case: [id number] Authorizing Provider: Kristi Clifton MD Collected: 06/26/2022 01:06 PM Ordering Location: [facility] Received: 06/26/2022 01:29 PM PERIOPERATIVE SERVICES Pathologist: Theo Thacker MD Specimen: Lymph Node, Lower Paratracheal, Right, Station 4R ADDENDUM 2 (test code = n0ailCCzSVZmdXV4BaUkA 3382) DRrq4sjz5GovEJtsKQzZO ffuUTokoWlfs87rYJ8iG5 1ED4dBODhQeO7UOYyiqO5 Xoy7JSYxRZJeoPRiG631t 4zux3dymnXnmSN3yXpuHD OixfvtAnC2BGijEMYuijs hZTa9PTkeLDMiwWN8XTXe fFFwP3GiZPHaRB3rmdu1U TK8ALqrQNAnVwK6KPNupD ErRUWffTdfWIwmb738JNH 9NmMlAYXhhkXqlTfbvX1a YbGkMKIYCWTCE81tKt3SP EFEREVORFVNOiBUTyBSRV BPUlQgUkVTVUxUUyBPRiB YMMIjPDMAJ7flcEVcDOXy ciBSRVNVTFRTOiBORUdBV ElWRVxwYXJccGFyIEludG MpqYPckGZ0iE7pEsgeJFN uTGVMIaIHnYyyXXvjA412 H7werKG5VALbOJgcHCLkC 7SUABvtD4jdinJjqs0LjP NsZXVzOiAxLjhccGFyIEh AEwVyH8YKMTvcT8cqzvNo IFJhdGlvOiAxLjFccGFyX FRkboBVgGZfz1Lqa0RgJS G7gAAmaVUjT7HnPE7kGEC kEiGmF2Sys88oV7XpwzRf s4J3HCFkofRoj79rbVO4O SBpbnRlcnByZXRhdGlvbi 5ccGFyfQ== ADDENDUM (test code = q6rasSJwTHFgkGR1AyKkH 3381) PDhe6kyz0FndQNvzNEgES aroLElpyLafn19gVM1bK8 0QY6aZXRdWuQ6VUXlbgX3 Doq9HVJpEVIujUFoK942c 1gcn4ldorCisUE2OITyQR WjV2XqAT0zLVSynLKbS82 ebLDfFFB1BLLuXUIgiVFv EPIyJIQ5KKZpoFJfO8lmS VUeJB0tdeeyCCcsYNecBX GizXD2HNGynWRkR2OiDTB vXMvxKWFiewd4MnDqJy2m dGVyeTcyMFxwYXJkXHBsY WobKTEpMpBsJ4NgEUEzKX LmkoYfp3MhVEBpRD9anZ9 2RCLbALGqwF7epUGaKAE9 xPXrQL6vJCEae25dhtman iBzdHVkaWVzLlxwYXJccG XaRERTH91OCgoPFhYcLYL JVi0MYACMNI2MOONTX5CF T36xKWPnvEYoYVKOELYBR 9PSKZPVR4NKNO2WKvSWZ1 NJVElWRVxwYXIgUHJvcG9 rdNrtijNlX56dUMtmZL21 XHBhciBJbnRlbnNpdHkgc 1ApveM3DJMbI7ssYWLuC3 HSUQMOEHolQuqjJSLAS0F BQMzPNAdsJ2QYM81PKAkW NAYUZ6cAZTSnlTAiVBQpc mRcdHgxODMwXHRhYlxwYX KklISxLVHEMc0BVSSZVBV PDpXwJcLOPFPOV2Q4IY8C J4RLJWOCBDRzxdDYtd2ia 1H7bJ9rGAOrq4UfUoRtTq FxwLNaEJjtpYAqp6d4rWV bF28lXSxgZI0eYDOwfnFK EH5WQQLYKaK1JBXoAY8PO PLGDeMkUMkBETgyBF6ZYF 5TSVRZXHBhclxwYXIgSEV FRWItU0RGBt4TSNUCRGMO SF3UDvBPZIFVKa3CEWnjB EMYH2OTFcMsRauueQMoSQ BlbmRpbmcgSEVSMiBGSVN AWPPyLXJhkuE4eQUmATNh nyBukN6iEl6mwA29DMJlh lxwYXJccGFyIENBUCBSRU wACPOLNV4WPkRbgzQNCBV YCU1PDYOFTSPsCo9DRCFF L61GTjoVHuRsBOVKNGSYH BXLCSvqIEUtE10viJLytG gzqbNeZHWpRZKwTNE2dH1 nLyFbQD5aOz0qTMBbThXd EvB9XFkIB5amOKImTWrkW 0NqXWnuKFNsmEQ6eVOuNR MqrBOwQA3oELGxwHI0LHP 4CmO2AuKeXpO3TEP8CAVh MWDIJGTbsbAUJQ4ptrDuW ABsz79yIw1bmXDrsT1iQU P2CLDdbdTlcSokFGbyZYp vMjcvMjAyMjsgMDQwMCBI UlNccGFyXHBhciBNZXRob 2MtrO4xcKpfpDYvHMAmiK U6rO6lPHP6mWEeWS8xAWk nwdr4uSylwKljc4ZhKLja cyBmaXhlZCBpbiAxMCUgb xA1bLRngAKebOXwLISvUE Heh9UjCBclmcGmg0QdKPZ wrV2xmSRdWW6nFPH4TAhw UUK6FGYqpL38cqQhPJ9nK A1fUMdntnosmkL8uRKhHA cyIGhvdXJzLlxwYXJccGF kKSQfaTzak6J7OXWrIEID x0HpqQRXORYad2OwtV5wb WelPO56pCRlYExntbGjr5 IgRVIsIFBnUiwgSGVyMiB yyhIkW6k7LlE3RYHeXBZf b9Wjh4UzQGYidK3aROQtj 25lcyBTUDEsIDFFMiwgNE D9DJlTTNUgPVBrcc69UDQ iLxHwjIHfCTORBOMwj0X2 KSBhbmQgMzAtOSByZXNwZ YI2oBAxoHsqfZWzmEr6zH 2bJZEhQJT9gCSiMUUdCZh aYO5lhwPai7LwNLKXSaJW HRMtH3Vqu71wW2x1KBNeg 42aVqMxcBChGQJStJNtw4 4sIEFaLlxwYXJccGFyIEN ygqHrt6ihM8qcEEAaWXF1 WD9gkcCsKoALub6gx0RsC OUimn21ggRFJtlpICHuYM zCWxHdKN7xSZueSmyxxJ0 qdPWzmuJoE10lpEXvpBAv w5JcOYDdgzBynPG3BKDiT Byppfrcq9d3jCY4NJJ9JA Agn2M7KD0dAEaje4MrU75 udHJvbCBzbGlkZXMgcnVu ZDXgk74ad4nzOAQsRhV2n PQnuDT7tAFoiHAsu1LdrD noICPum8caYLWpfr3vtyg hfXFnp5OifQ6axfwbGEJt jznwLHTrRJ82HOZtfcB7o XZlIENyaXRlcmlhOiBUaG Iaq6HtfF4ybvurenZsjTm 4vwIiojOeNQMhk1AkvN2p GOXcKWJaLXQPR4PMS3MFE CBndWlkZWxpbmVzIGZvci WTIVNvXCouHQZhK67yRsH mIXFbPKguzW6guzJgESQS VJIBsEchw88uTVzZXDWom ORruE4jYQLBLXYsPUQucE lnBbCvrgERvjPse0BgT1H kB3KmVnIAH4YWB3WYUIPU o9Q5u5DtAAGcQTB4UL0xR KMpmXOPRRBch2piVJXsFP 2fYI6pFsTuYEoaGXKyETG cEpEtUoWhSXK3Xh4aPH5g NiPuNjC2DXzsFHSqBZ1uG OM4ETG7KVQwC9GnFXUnKX MOGd5REgCtz8SiOSUefRw gs79qW5gkXFnyaW8fltBg JBKFXJTVk4odTHG6HX4lP MU1DLUiQjGVCxCcdaEoFS IgVGVzdGluZyBpbiBCcmV sw4VnL1UpX3ErCgHNR3ZA B4CGGFUQpYfhAPuzwqVyR YBlMWDrOrGKLGFozX3vV0 7ww3hsNOMsMyG1YjecAGH uQbPjTFFrKWO4Sm4fDS8g TcSgUsDsYKOwQrCHXnD7U oUhDbF1SH6uhREiQTHcfx POyHKHW7QWI2DXTZNfoGd kZWxpbmVzLCBFUiBhbmQg HZDmDBW6YkVePRgcKTEdn 8RpbIa4KNm2OENrZTPnAa a0AYIyiLMhguBuJMjjCJF 5ZLHvp8WiVFB5ZDsnsQ5l XBHbzXOhr8UpA5HmvBHrd 2tzu3mtPuCtsQPqCPTeGT U8MEpsyS5vJzMEeU6pjbC tkK98yS1eKQJrZO0pUZPm QYN3qN8qAIBluRmjGPP3K XfmsJ2iFXIyrxJSIjZyqa UgZGVzaWduYXRlZCAiRVI zQI77UJYfr3p0lNTlAd1v cGFyXHBhciBIRVIgMiBuZ PCzCJR5CfRbCSbvBOFgm9 EdkUo2HMw6MUDnNAIvMwf 0ICgzKykgcmVxdWlyZXMg L8qjX1UjNeUpRS48qZDdM J3cpAOfNV9xUEC0TUmkgE 6iKAFlGNMirNTmG94edZp lgORnFK2kQLnfeUCbu9Pb s0s9cSxiZC2gviXndHkeo tNbKZHbj5OdrRvxZPxnqw OrcPFfSUN0rH3nFPDjeZk zLiBIRVIgMiBuZXUgImVx zCj0y5GcnTExHRFgULNxG IK5cWSvifWas01zbFO8SU JlFO7csjCaHLEztEQjufa aZoT6yIS3NCkqVWnwEVbh EaHgm8YkijU9RKx6DMngg BIss9BkpB5vKfUsOBIlEu WcmkEvd5w8IZO1qP7ztxA dQQpoqe1jRIBBSVSesjM2 BCTePExszVl2ZUVpPGUbA NLmXYX0gCDgilFjsiNphP BsZXRlLCBmYWludCBtZW1 icmFuZSBzdGFpbmluZyBp Charity+UZWpJZ3bXFltjtXzc HBdXEP3uB0aHRHnbJfgQQ FuZCBIRVIgMiBuZXUgIm5 rY2E7nCUeBeJtSFiukvWy uWtxOSSmpm4zy2JpuM0wm gzxw3WjOdWmayHzqD4ee7 9dcRU8ASCaRF1lgpCsMWG pqTNozuvdXuOobgD2SJQx YEBct6VwoX22BDJdynXpg QWyo0VtS9LmfWXzEPOubh uoAFSyHAssQEWDM5NFVQQ co6DpwvUvc00pK0YysjPt aA2dsBNrwDTvMPNdRUVja g5eq9G4bQ5gNC5wXRHzr3 w5nPEgBKB8VFrmeK0dOEE 7lH2sXZWpkYwpHUwzWZ3c pm5zWCxuSIT4TMBqVCLxR kXoUB9nTW3sDXRcSQ9bRX fwDcE3BR1gJzEpOFJoBac tNBM2HD5uVrFoFi0jOnK4 OyRnCzDzYsHUoRKbzH29O Q2azPN3ZXCvi9BcJPwpRG olFTSujbE6aPYqSWJckjB zYPYdcbNkraKmaTrua9Zx cW4feZRptqNbg2QraL6zl ypccPQhf2TyG4UijKWhHR NmXICrm49nSjBkIH4il5W lqrneVcZ7CXgdtYCcaBEm vRB9BHmnPcF7TQA9yy9mT pknHIRqtjW6pQPeqLPhnZ 9zZSBvZiBkZWZpbmluZyA meI5viAWdrfXnNLI6bLEt lUBucS9imLrbomBkjaKwp J25VF6egWC6VROeu7Flzl D0TWRlTWIfCXXcJYUkIG5 idGFpbiBhIHRvdGFsIHNj c3VbOUusSH2dKSAlEWloC iBFUiBhbmQgUGdSICJwb3 HxmTf1PWYfMRJajUWcHQJ ia7HmGK8pPZQ5MAOdRHFd MuelIDIutM6pr6E8NXaje uYgk3TjZQzefCuwWyERJS JmcD55WIehi4CzkmQkGOi utWqhT3pqwfvgEJhuu2U5 E56fPAMrijEkYPTwWU12y rIlNLMiiQFhdmwvnY7gxU 7gFBbeuTlhwhIjwNOcd5B dAqADv1Ezae1aBYJ1pU4j FURdXgX7UYbhHSw8LAyiJ rUCdPbdTG0bL76cRHA9Xl W0XrEyGMP9WOb2LZutsED UCPUtpkDurpJ6POkfNVZf UJZgEKX2GLBeCELvbGVQH Y7oXGChNbCzFFCwBOQ6EL e2UqUdCvaxWjU0CaAeGEk gMjAwMikuXHBhclxwYXIg VX9kkY0gcXhkiM2ucTKbs KI5dioai0FaABMtblFjob 1lZCBvbiBwYXJhZmZpbiB uOJI1wH5eesQxg8CwhBeg XOKxI9IrleDxqPpqeLEmP nGPkKSqwI2ndF8yh4VluQ 4camncb4dfezOakkW3UBH dWLX4rVPwz5CpHGAyehXi J57sTWLughLjtyVwTH07s R4qHARfPEJwn7YvnTF9AF IgoRRykB7xuEkxovJneeP gaI01EX1ngIK6OC9iQUFg w4y0iACyBLG3xN5cGAAaw PpfCmDJzQNpz7LfhTD3GK Otd4ZkjGr7HHTqlzHmicY hHTUklkWnR66egHDnrIMc q0KjEZXcslDezJYdXXMjk bG7jKMzRXEufOWowYwhbj 1hgKHvDKXnqoAEuL12ww3 ljBG8v1YfSW6ah3XjrZW6 ZWNobmljYWwgdGVzdGluZ jI6XKTwtFOqLh6osOEeIH Z4ZIMstUlkoePDgZ9dKXA mMOnvYK1bATqmIHndQ1Hv pJKeAMRHJCWrl9ktO6ozV HIrk2RupH1veSP9mNLpDZ YokRT3NWWzXBI8OHdopMW yTRYhLQOzyFZrsEAdQb9o qNCnN9VqZ5uaaaGcmBQxa QJ9wWZsXUypoeSkNPK6TG MiiB0dAE8kDDSckGPjMA1 vdCBiZWVuIGNsZWFyZWQg b3JcWCQrcb17VJBoUuxdy NhpFRUgUo9bIf7mXPIuce AxTNU3BwSHCN9whbitgOT kzTwyhg3oLQdzXOBLLAUy ZGLtPBK9OOBmlT9rASX1y RS8BXK6U5zsC3uaHUXltd JxAP6uVTWqqSMeowUdSSw dTM4ryYLsGLCov7Kuwdwv ZAKpSWK5PUX2EEwzWKVkP YQbLs5zOYLcuT2zJ6NdWA L8qjHht9EeNyQCbJLxqE5 8zQUgsa72QNMfEXUfC4Ac ZGVkIGFzIGludmVzdGlnY FRhz73tlPPfbdCik5Jlrg GlSVOlB3sdCSHxbFPhcDS oe1KkcN2jeWXkurXvFMJ0 nVLaHLSqiD5hBCXxsYeuM VXzsN6jM5WeEWraNi8lHW SrdgjnCE0xwq65BF4trkG gQD7opqQsJC55gyXrPrDm NOu2GVgTYTdICZj0FUOpe zZyeSGpjMPpDVQvfA4drE YzVu3tjOKcbBrhAYFaaKC tLJkkgRqpO9acjcciUAvh qLMug1PbfE1dcAK7VLR5v J3gQxpzVGOqsHGkXKOmd5 B9FNTdeA1dondcANJpw4H dcY0gTUZ1kIYeGOYra2Dh yhz7MUFaDUFeqt9= DIAGNOSIS (test code = y9cotMCkZJLou5blYDRfj 3220) GFuZzEwMzNcZnRuYmpcdW MxIHtccnRmMVxlcGljOTY dXpblrwFkWLFtzKIiW2Zf xfbcSUlzBG2pQW3iwEuaq BXoeTSvXGNiJcAoz0wbc4 98jOQrx4fkKCTJapefeBl 1eWzqF07lj7I1UthdC05v aSBfNWZ0ROVpKREciVYcO ZSaYNE0ZKZduSEzN5kgIC XoJB6ojodmKEosCQobIXA wmPO8OJWzuDKzY2WtNVOd OPzwKAOvtdo7QzXjNg1jc GVyeTcyMFxwYXJkXHBsYW luXGZzMjAgTFlNUEggTk9 TSOqdCF0SNOUtDUHSXQGE QUNIRUFMLCBSSUdIVCwgU 3NIFDjFLgN7DhAPGnULQZ ZOQSBCWSBDTElOSUNJQU4 gKERJUkVDVCBTTUVBUlMg IP5UETBASRpmLftLN5xjM 0YgQVNQSVJBVEUpOiBccG DbKEJzFA6oLZNLIVGCBTC WSbUCDEGTKJ1MZIUwH73A UEFUSUJMRSBXSVRIIEJSR UFTVCBQUklNQVJZIChTRU VkB61AMKZALSxpvYXfyPq tdvBpJZqdj8ZbNByiHHPj QH0bqEmmRTRlQK0aSEKjV 0tykB7atgr1FoToBXJfEk N3JTVszvJ3Zkx6EXNcMSb ft2tdv9MuDVLsRJq1rZvr AuMjKAObm1knvhUlMzRxS WPuLBOvIOTqzXBxO387j7 ygj6vhuhZghGZ4MWSaBZI 0QPhrxnHlnuK8HMelpDAq BiX0XHjvaoZuNHdkgjZce dFeWsi5QFRuS121AFN3tC old4yjPKE5GZDcMBLbCwN uTz7lrRPoR877ZYJsESHN TFObxDl9JESzxrBrsuScw DHKq769V830o2yoNDXggg CulGzKnamnr9dcV690EGU hcGVydzEyMjQwXHBhcGVy rLA8WBEdRX4eqisjNJhsY VocSMWlomG6YDRkqRXeZ0 YyYQOpEP4fvcttEIA5UHq pAXCeLRR1UrYnXXFso1Vl crj7UzJlid6szd31SQS9n 9CojPjtVWG1ICS6XzLwTc 8cxVQhMIEjZH6kFeFdiJK kZRBucb61qBbtLRtwEJM3 WRJadfGbd8Bll2eeJvGve mTpI8guT7QrMQHhOPVeET UzWcOsgaXza8Ojb0OruAI scVx0f2apZEYwLNFxcPeo r9kaEAA6WXXhqBRnX2buk W2kSBYlZB7nbvlml0yiBT bkAAgsECXriLY1vvM3SWP qxEWgX1PwuF8pWRQzVUhv PWHsnut3IoFwZg8vpPPkm TcyMFxzYmtwYWdlXHBnbm NvbnRccGduZGVjXHBsYWl uXHBsYWluXGYwXGZzMjRc cWxcbGFuZzEwMzNcaGlja FxmMVxkYmNoXGYxXGxvY2 gcGkBkExAfNei6EGFpmIJ pXVVuKkk9PNZldWIhVPOX fAsxbA3qZJCdqWshzG3hw TU8AJEqziGhyQCJgJ1wHQ EEwJ5oWiR6KoOiZoF1FFh 3BmMomAEwlZ1= COMMENT (test code = x3rwoNAoKICvmQF9MjNmR 3359) BTzx9wpm6DxcQJvfHSnRV nciNJhghTdxs22kOI6hK5 4QO7zLAQvWeZ5FTMkcgR4 Zxk3QWJtTMZkbXXlZ016d 8zzx7llugMydNV0iJwzUP UotzfcIpW6XNylNVKtluv fNZf2BMzuVEZszQD1DDZw rOJzV0TaMCAyIT9wpdv7Z ZY0WPbhWWFxNxB2LHZtnH GrBSPnmTjsBRpba765WRJ 7JjKvWVDddaFaeJodpQ0g ZnMyMCBUaGUgbWFsaWduY I70FFLgcFdqWEUyRXOhRD NtPP7waG3zqOLcnzGboVO adi2gb73pLVJ3cOUtEKYm f8A3DRSyfmT8xIPhU9Fjd OKvpU4icy4uVa2upUphrM vwtBBkqWrem4LzMKzqYTR bIJ1rUPDtA5JaOKG9Jh69 A78nWYozN0dabgRoMGTrJ SBzZWVuLiBUaGlzIGNvdW bfSDLclSBcc8KpzQHfJNC vbXBsZXRlbHkgcmVwbGFj TXJjbJB0SEH6WGZqJdIgh Y6iqOLbr9LlZJ8aJZX6vX Dfpt6uFYhzyHJbr0JtTGU xqL0rH6QoEGCtfeOohJP6 jT0oUFqpCYGnD60mxRMfU LYwBvFIviXxg7ZcRlzddN Lsb2WknvT5rDcoDOEmQYK hhC7tyNYzHDxzGBDpZBDy XULoADGrHxJMjH0dnO5gm iA1ZCUxMZMgpxUkyAJaCN JoMWHlFFbaINnwu3BkXS4 ADR2eZNklHdIzDyXsUOIx FFdnPWHauWZavDXnNOB2r fCwzZIjc7CowZ1yRrhvPW JccGFyIFBsZWFzZSBhbHN rXLLqJJAndYPmvKY3fO2c g3a9FVBdh7ZkFaDoEVLgL DJccGFyXHBhciBJTlRSQU PEDOYXDV2IZnESJBUQT25 WBAyVGSUNQ550MN3lCI7b iiJnHZYobzElNFUhYZ6ZP GhhcyBzZWVuIHRoZSBjZW fbYPZcj2XgCZCpLNRpE4S hYEIhg5t1uRI2kQJpXWdr F07id6piVbUqzTJldG== CPT Code(s) (test code = c7oseNOyVIPevHN6EeRzS 3357) BUas4xss9YusDAusTWyIG iwaOBzlqYjfn47fYJ6xU9 5UP4hEXJqLrG9KRJuyhR4 Qwe2WDMzEXLcyXHgV298q 8fao8fyiqVouRO8vRpcTE NvliikDiM2QRgrDPMwhqw xWVz3EXftLNWhvDQ7CZIm zRTdP0MlQGTpDO5nxvd3G XM9TJlyBRFwRuX2OMDdhS AdPCUoxXfsMCeba035PSW 9DsOwZQCpalDuzItkbT4t BvVtUGX3COD8EtscTLbqW xPzYZk0OeI6EDZ3ZQP9Hd wgODgzNDFccGFyfQ== CLINICAL DATA (test code p6reiRQbCQEirWJ5KbBpW = 3355) DFdn5jng5WqvLVmgHKsBG xfpTUresSusu06sHH4fA2 7YT8wOVYuKxQ6MRSnpfT4 Vjz1MGBoXSIdmJWhF065p 8roh8gmhaHukXQ2LKEfGP JjC2CuKN9qAFTikXNzD17 zxASxOEV1HXIjVOJfkQDc SKRaILH1XRPkjLSnN2pdW RNoIT6hzduwVJdeLRpuSW XesNT2XQJbkPPoM2BgDSN dVSgmDAZgyro3EvUoXp5d dGVyeTcyMFxwYXJkXHBsY WluXGZzMjAgTHltcGhhZG Ajm0ZrzKq7OIptAcEuQZS nqFzjVM2rK0xaIG0jFMRn k15khCQ6QKZpJXIeHADwy 3Wxo2AbMQCzBHhaCbUmMZ 0vUCHtKbXzY5HgbPbud8A oYAarubszjKX5RT3useFx a0qtWyMqNPUceMD7v8N2L S5lWGPjU5h5QRJiDRMesY JpYK8tLDCwuO1jVzLbLDB mZ8XyKUXpnOn+cmlnaHRc kg5ed3MtN4DejKhkG8urc V7hCXGgTSHdg33stW2cim UoeSXtsX0cCH75oWGrIXz vcnNlbmluZyBiYWNrIHBh vP3mXDNqc2WnE2ypLP5HZ LE2KiFaOuPbv0oxs4GkAA NmIuGtVSUcs6eyW2lsCMG nbZDvWQQflN0zXXYdLYM2 mPRkGFOlOHIdbQb0qYDuY 4DaSA6sv9ZrqTRbuCK5RM T4DDUmRwPwqTDbNWNdJY0 pQQZue7VdgDb0RMXvz6Gz ceFshz0thCVplP1aulBje nUQMajvDWikIXE7AKJvfF AhDG1ckCQhZHNkvU4pOSE woMVuqWAunAJpkZA7eyUp FGDnQxAbaO8dQPExkdfbu mdlZCBMTiBuZWFyIGFvcn RpYyBhcmNoLiBccGFyfQ= = SPECIMEN SOURCE (test i3nghDMsAMBcbHK8NdOqZ code = 3377) BZtr9dfw7KsuIJwrHHgEW kaxYPtsvNdwq05aJS2nD5 5QI7eECDyDzF5INJrkdO9 Pyd0APMjHBDezPYgX911i 3xxb8kbstDaoAN9qMspNL TfsbkiLyM5CZcfGDQvegf wTKa4JGrrUPJnrJF0EKHc aGIwE9YkBPJwJJ8ozzy9L QL8TFgkIWXbYiY8XIFkfO FiDWQwdFdsYPacv646PWI 5PnWiSCFumdPuvXailC8u XvGuUGLFLV2UCHFFV0BOJ KVTJ4dDNeWWYHUQYBTAF9 nKGQghFVVQX1oYISKFOAG CZF2UALMZMMSUNFQoNp6O XHBhcn0= GROSS DESCRIPTION (test a5zviGYeHPActJUHYYGuM code = [id number]) 6mfsyHuWPKxcXPvB8Ydvs pcGRptEB2cZB6vtYrwoGR jmVZbEU9DPXAySiWlJOCu cGVydzEyMjQwXHBhcGVya OE4UPUaKC0nlthqVAyxGE riLUHiwuQ3LAGywHFrE7I jGOGuBV3gqoojCGU0ZEcr bQ3pfjBRSlokGg0giLEik HtcZjFcZmNoYXJzZXQwXG HmuHnmIFQiBTd2nF2NEws gYIN6KBYQCbhlLOYmVT6O w8beDTHfvJKoWWL3ORotu DEnWTTiHMMuFFi3LUXlPU xzrAEfTY2imCluPsgooPv ow3UtfYXsMHddOENmRETl ROadCOHuBR2TMeBuXMH8J SL0IPEiWHz6SPn9JD1WGq ZgFIRsJFr8QUi6UWQwPRr 6ZPtuMX3AAWDyDPa2ZPPy HvX9CUA0WQCjBGUcDjGpR GYgQXJpYWwgXFxmbCBcXG 6xnRrcpNAiisWKKtAEfY2 wpZQWn8GdBPFKm8ejrjKP JVNlzNFlT7gzPMhiTIJfY 0b8OIWUxOO5eO0kGACUNa hdKQFaWVdbSGLaP63od0E Rw9OzWH9LYLs1piCcooep oQ0mEXRsqsIbUIiqgFHpH 2hcZnMyMCBSZWNlaXZlZC MoDYTbkUFqaZ8hD7p7m7H yE9fpomJcOUOjMUGhTEOa cmVjdCBzbWVhciBzbGlkZ YC9ABOtCOIwzjWzQKQjrM aeYgobN4ztNBCoVEZaE5P jnJOorV0ccvBldSJrHGXl wL5rGn4drDGrzN6qAAUuC zowMCBwbSwgMDgvMjYvMj QdYdilON1GTXGyVJryXHM uaOGCAYW0MG0nLVyplHOt dzzzVOMcD8MvA2XtiaCcq JAqARUrplLtz0drOFR5LZ NsbXVsdDBcZnMxNlxwYXJ 7SGybn8mfAGA9LZXkiCEc dDAgDQpcZnMxNntcZXBpY 9OyF8BsfcS5KBy6 INTRAPROCEDURAL ADEQUACY o7hycOUmDOJmeFF1WlRuL (test code = 3370) BOgx1mjb8KshWRwnULbSS prtCZeeeCboz47hMH9nQ8 4SJ1gEROcHhH3NIIsaeO5 Txp1ENHlKAWloIIdA418u 5sxt6eokiMmtWI9xKupQQ OqxjlgItN5KZcoBPCpujz cFWl8QRtlDCSguDW9FCIa eUSmE1UvORLpFZ9lmaf9W US8VPqePTZbOwS1HJTadQ XjZQRetGnkDAfbl700CKA 2JbLiGUFvvzCliIzyfT8r ZnMyMCBJTkFERVFVQVRFL YDBZrKDRR3ZNG0BRCASKl TNNiSHCR3GIrMNLQMUCUQ WKJEHS5YZBAODNYaIDCZd WNU6BZXpGY6qXRUZVBitO XJ9 MICROSCOPIC DESCRIPTION p1gjvXCoJYWnsAF0EqJuX (test code = 3371) GOhc8glr4DbgQIkrHXaHO kyyNRdmnWcub02bPF5rJ1 5SO5aLKXoWbW2RYRfyuE2 Zxn4MOCxEVJxjVMrY005u 3wfv1kbxvEinPI9cRnsPS AcwiviJmZ7NSldKIKbbao oAOx4FOlzXWYtxCV8PYSs nWAqU1MiPGCwOD6ginw7I EZ3XVizDKCeBvT5DWOwdB RyEVEqjUmcZIgvn652GFY 9QlLnUHHwltGfzYkwsH1o DuOkSCWATDRdw8JfREBsC FxwYXJ9 SPECIAL STUDIES (test m1fiyCClDGXzmQM3McVzX code = 3376) GIaj5qug4StdQVtuREeAU ybfNZqroKkqg14rAG6gD5 9SM0pINCpToY1LADujxD2 Qxe7LBFyUOXpsHAuC647N VFqZIAejSoquiz1vY29IW TnpO5yhMHmYWrqvgLyXLi emvLlbhJaCox3VOP6wUuw OWSxrdpwBbU2TTxxEPFbi znvFPx3MJdvYZSbpZV8CR KemRIvO3FuUGDbUL6zmhi 3AXE4GDjoBOEaItF3QXOx iIRoVUFjbEqoCOeuq420E EP1FtMkMPGagyFweSgpvW 5cZjFcZnMyMlxjZjEgVGh sDNowvQPugAXpzLO9wB7s NU3aHNQinHIhE9TxMXRxr sHcbPAxSIJ6wVUzjCMtOH 7jJXtjgNWsa6alb4IyO3y yxLbtqQM0ZT9bHGByVBKi RLkzi4HajV0iEvmoFYExC 3GLDGDmTNJzz6j9nCJhIG BzdHJvbmdccGFyIFRURjE mPB1bX9Y8uYVxJHMfeeWY LewiaQ7cgOUpskTulQJeW TBileCia3hkC4auCOJdVA K6KH2lkmGhRyCtKJ4msP2 6c4Bzx09tv95jrS4ppXDb yvNoM45ldOMeqDIuv4TiT CIttrFbjCB4KVXqXCkifz sjx0o4qGJ1nKVimXLodSB 0aXNzdWUuICBUaGVzZSBj b153aw3rPYXuaYWizyQtv G3eLLhewlmjkCTiWI6lOV XyWNCbIZWrGR88ydAiZT3 jxGTvw5hzgwNnzRAdz8Zu hIH2IKKnvBJnfnkkJn5bB V26TFRjKYanpW7kpEWysp KtST5qJZ9uV8K6hMXnPLN zyyRyf2tzESrjJM5vBTQk aWxhYmxlIGFyZSBldmFsd ID3NYRdwGSvTUMorFBdEV rklYMzu7ofr9HqX5smkIz suYL2EHHyU3mxbGUixXN4 RIS9wU6sQRhmrzXvGLDtn 4QaPBPrCHGbXaC8xU4rWX J3EsFEgYrkQMJ6AbM1OFy lKMUrDN5oYDlfOMucI8Vg sCHrZTCESCPit6zaP2xvY MSmk4OmaP3rjZD5dUGiBL VdzFP6SUWcQQB9VRzghEK oHGMbJDKjuCSljSScHm9h eWIpE4TcN6xptpLfqBAyx QP1eUGlMEtzutOpGCH7KK QywQ1bIU7qAELkcCBtVH5 vdCBiZWVuIGNsZWFyZWQg k8QmRFVnej55AZWbJprdf OtgXWPxGf7rQy2uFRAplw ToSNT2MfYWPC6fpaxzzGB huCxgor1vVBbdNAATEXNd DUUtSPS3LAQrlY9iGZN1t LO8YUI7R6qjX7mzWPMmyr JrKH4nCVBapHRluiMxVHy sGG3kaSUwEGCwc9Xscura PXIhOWT5UQJ9CVleHTKvH YLlNu5xYVFytH1zW1FiQB S0nySgu7NaKyNPfPYsrF3 6kPPehs70CHFaYZKiO6Wj ZGVkIGFzIGludmVzdGlnY OCxm70omUXjdxWgt9Ljqk DwYMTpZ6ekQMLjnODrnCY ou4DyvW4brSXdtsLwSOA9 sMUyLVJglF6cFMNkiQuuH YNanF0qC5YeVOryTf9uKG HobihpAD1zvn14QX0pzaK dBJ2mwsNxZB42kkKrAcJo OTg5JFlQZYeOXIw4LDOfu uKyrZVoqTBkWNHouL4zyL PaAd7lsJHkzOkjRWSykXH wEGtbdPdzH8dfzejnRWce wCBrw2AvoE2rdIR5CJV3o M0sGmpdCIO9 Gross assessment was [facility] performed at ([facility], = 2777) Department of Pathology, [address] [place] [id number], Technical component was [facility] performed at ([facility], = 2778) Department of Pathology, [address] [place] [address], Professional component [facility] was performed at ([facility], code = 2779) Department of Pathology, [address] [place] [address], [facility] [id number] 14:04:03 Test Item Value Reference Range Interpretation Comments Case Report (test code = Medical Cytology 104) Report Case: [id number] Authorizing Provider: Kristi Clifton MD Collected: 06/26/2022 01:06 PM Ordering Location: [facility] Received: 06/26/2022 01:29 PM PERIOPERATIVE SERVICES Pathologist: Theo Thacker MD Specimen: Lymph Node, Lower Paratracheal, Right, Station 4R ADDENDUM 2 (test code = c5vcfMMgDQLoiOO6EsMqD 3382) TEky2khz8YftPDjsBQvCV iupKFsnhTsbk13tZJ9tW7 1QB2yWZCwDsN0MMRtprG3 Sek3NUJjOLPsbAGmK263k 9gcv6mvfuWjlXT0lQqbHI OsjoqvAaA0RMmqBMQmacu xBCk1QKteYQApjGL4NHHy oMOwV5QcWAVpAQ6lgzg1D TV9JSuaYWRdKcU4QUIpjD EoUOWgrUxjQNcwz274XAO 4OjBlBURvaoTdwCgjbJ5i PjJbHPTEGARPI41gAo5OZ EFEREVORFVNOiBUTyBSRV BPUlQgUkVTVUxUUyBPRiB SRLQmTQVHY8vviFVnMZLc ciBSRVNVTFRTOiBORUdBV ElWRVxwYXJccGFyIEludG IavPGfmDV8kO9kIvjqQRB hTQPGYnEPyHwpIYbpS528 E6ahxGU5DDBiPDfuBTJyJ 6RUFYqiG7zwzzCygh9YlE NsZXVzOiAxLjhccGFyIEh EAnBdK0GSDFcjR7xlupCf IFJhdGlvOiAxLjFccGFyX ZTefnBBwUNef6Xku9BoKC S7dWBiyQNyI6FyMM8uVIC iJyYqF8Zdk53eE9YgmzKv q4M3TJJsyjOma85tiJB7U SBpbnRlcnByZXRhdGlvbi 5ccGFyfQ== ADDENDUM (test code = c7ewcZDxQKDimNM5QaDrS 3381) VRih8ebn2AmpPNrfTAnAN gzuOPfutZhrj94cAW0mN3 3SW1mRRRcUwV7XXRneyD1 Ziy4EVYmXBUfnJImM130x 8iir3gbxnWysPY3UIOpNB CjY1SgCT1wRBEgkAMnA93 wvNKtTZT8ATHzMYIgoLPg HFGzXBY5VYEukNLbY3hhL HPuQL7khengCWaxJZonWX EufUD4HJDglHWdL7SzYAL cIVfxXDUnpda1LbDwAs2q dGVyeTcyMFxwYXJkXHBsY QloEGLhItUrO4CnSUToEP CdqgEqr7DvFTRoPM8whV6 6NANzXUHzfQ0zuEHdVWR7 lQGcRR8zJWEno99ewmfgs iBzdHVkaWVzLlxwYXJccG XeHVAEE33EYhqEUsNuYVG XMl0BNYAHQW6FVAEST0AB H45lWSIlhEMuBSBVODZJP 2CGSETPH4JHPU7SNzLSB7 NJVElWRVxwYXIgUHJvcG9 ydZttnbMqO92tRMldPW14 XHBhciBJbnRlbnNpdHkgc 0RmpzC7WQWuO8pkNZJxP2 XAZDHELQblAakyKVRGG6L DAIrJFQrvL4RIS80MQLwQ CVYEK8hRWKVwzIRbDRMgk mRcdHgxODMwXHRhYlxwYX MtkFHkKRDNHo5FAKBJZLE PWuYpSgIQWFBVJ3O8GD8T K8WBLFEWNBZrfxGAdn1kg 6K8qP4uSUGfm9OzLoZcRo HmmOYbHTvdyYTwe1c1eOG cB10tODvkBE3xSFDrmpPN XG5VQHAMTsP4SWRrME4FD GAAInBrXGjKQSkmTX3RZC 5TSVRZXHBhclxwYXIgSEV BKBYqU9SXGr3TILHMNVOQ OS6ASkJZJETJFq3ZZWxkF XDXN6XFXeBhBftwaABnSD BlbmRpbmcgSEVSMiBGSVN COIZrHUDfyyX0tZLhNAKd hcCspB0xTc8hdC96NOTgm lxwYXJccGFyIENBUCBSRU aKGRAEZF7UGuOxsuGPKSA TBU4YCJSUPASrDt6LNHFJ S46DSswBHhXtYMRQXOEGS GKGHYmvCARrE86llOXwnO bodaEqMLDdNCTwPGA7uZ1 eGoHlGL1tRt4rTLBwFfSj KkS2GWwGH7gnPHNySLjhR 6CdCCpnGHTavGW7dHGcUW TjvXBbAD9zLFEqhOJ9UOB 8XsO8QeXwUjW7FSB5BHOz LZCRIEZhkyHZRZ2wxcKlW BAba56bKu1iiCKuqH0vDZ L1LEKdntJopFleZWbfTDn vMjcvMjAyMjsgMDQwMCBI UlNccGFyXHBhciBNZXRob 6CfeW9jiIlmgRKvEMOphB F0qQ2kTVZ7hJQwRT7uGEj cjhh1xMnwgShsd7GxDSsk cyBmaXhlZCBpbiAxMCUgb xV6uXReeZFyfPVkSVYyIM Pfz2LqXDhtflYro3LuRCL kmR3fsVQaLH4aUKR2WJnc NMF1PHQfxG86hbMjKJ1kI C7oBFqnszmbnlZ6qNFfBG cyIGhvdXJzLlxwYXJccGF xEGFhhSvrq0J2ZICsDGEC m6ApqXBFOFHbs8JgjU0en GbqPW78qLFgOBteexYvm5 IgRVIsIFBnUiwgSGVyMiB criGsJ9u0MrV6UMWyNSTn v1Lug6OkBATuuY3wHNJym 25lcyBTUDEsIDFFMiwgNE F0QGcJSOQoZORxfm31FPD hElDpjSWgBQLGHGJyq6N5 KSBhbmQgMzAtOSByZXNwZ BA1vBCqtApdcGNqnTb6lD 0mCKLsJOO6lQNdPQXwHYl bPA4gaxDkj0CcGHJCPhRS EJNvV3Fex97qA7e3SBShr 95gVwHraJNyZORCvCTfe2 4sIEFaLlxwYXJccGFyIEN jzjLdt8cxG6ljEYVmOBI0 VH8mxiPtBwXEbq5lv5RvT DKhbe86blQGQsawESMmWD sZMrQrPR8sFKufBxenwM0 meUQpweSeX18ydCWhkCDl y2ApBFOrbdZruBI7VQFkC Kqlshfpl9s0iXO6WJB0UZ Jao1U7JB6dRCccn8QlY52 udHJvbCBzbGlkZXMgcnVu DEPvm55py4blLFRrTqS4x RMafYL3hKMqzLHhf8NudI nvWQNbs7kkOTUyrq0shjn hqWRyx0FifB3izvlfNWAo hhycGUUmVH85KUBqreU6o XZlIENyaXRlcmlhOiBUaG Fli3VygX2wkpwjvpEjwCr 8psEybdKlXZZuu6VrnL9m DZVcXTXiJTSQQ5UPK0TJL CBndWlkZWxpbmVzIGZvci SQISUpRQobWUQrW40sVgK oXYJtCDvyqP3kglHyQCBL ACYWcCfst64cXKqTKSJnr ILphY7iETVHAYAjRCOdqG jxYsHlnyOMwbHkv7OuD5U gG2RnTtSSR2ZSR1ITEEPC c9P4j3TjEQCrPMR1XN0gN XEmrCQOONAto7qnQURaZK 8yOO2qXtJsWWkbIMBiLXS kVeYxUoYrHFJ3Cj9hYU0b NfDcLtS3DBtoOHVsFO6tN NJ1UAW4XCXaG4MiSATbSM DGBu9UBdXyw2ArKYIgeHq hd60kG3jvXIcawH2ntgOm JZRZNVJQf3yyRSC8DE6cI VZ8UTJqXsLYOkZvekHuQW IgVGVzdGluZyBpbiBCcmV rc1HsD7KtJ4JwIlLUC9UC R9JRGIMRvVloCIfcvnDcP QXxCOHjOsHITVHdrQ3zJ1 0zv0lhDYLbRoS5WrisLJN bAgGzXDXnZTQ2Fm0jCJ8j PjBhCkRrIOZqSdNLMoL6X yNxAoC5MY7dgSUlCXFtjz GXeOFJZ1RVG4QVSNTjrKo kZWxpbmVzLCBFUiBhbmQg UGHjUVK4ExMuKIbcJTHva 4CmiNs5VAd9EKQfKRPuNv m4SWYcnYKhnhDgQKzkSXT 7OMGiw5OjEJA7LCqwhG4u DXFdbQYen0FtW2XjdQGwk 3kqj4rgNtXvgPRvOXHcHA C3CXtlxU3bZlDHpB6nwoT ugI91lC4lGAGvAL3rSQPe ZXE8dC0jFBTkpEuqRMY9T FsxsB8eIWRcolPACkIluh UgZGVzaWduYXRlZCAiRVI jSK60DGKwk5p7iPZaZk7w cGFyXHBhciBIRVIgMiBuZ FGgKMP0CdHsVFkeAUUlb0 TkeLh9CLn2TYGeXOUfOzf 0ICgzKykgcmVxdWlyZXMg U5rnG6EtBgIiZA65zHOoG P1zkFZiDN4fJJL9YOndqT 0bDCHjEAKthPLnB25keXt cjUVqMC4hNUuxuZBzy8Cq j5i6vImlEN0ktrInuDiup jVuATRtg1AkfVgiGTlkda EdsKUjBWT9fA4cJADjhIf zLiBIRVIgMiBuZXUgImVx mCo2u3VyrVFnKUWhZJPkC WZ9iCWbbhZqm31nlRU9QQ YsVL4umwHcGCSqgKYtcwk oPcP3nRS3XLbrXLniUBfv ReTvo4NgozR1IXl3ZWuyt QCiy8CmrK8pUeNuSKVhLi XmsfVqa5g4YBF0hX0niwS dZZddli7tZIOASHBmjoI9 GFHhTYamvAw7ZVMkNWRdD THuKLC4iPRvpdQwjcCfyO BsZXRlLCBmYWludCBtZW1 icmFuZSBzdGFpbmluZyBp Charity+ECTlKG3cZEgktcIcc GXrPMT9kC1fNCOnbWdaFW FuZCBIRVIgMiBuZXUgIm5 gW7S0hCEzLgFoNAptrfWz pYosEZOhdv1no4VfoH6oa ismh4UvDxAhhaYitD1ew1 1qyZJ4YRFbEA7fygOrCPY fpGDkdsbqRgEtwoI1EWLz TIMxc3QxzX80AKAvnsJzp MSit4DjU4LmxEYvFREemh nbLSJgORxhMCJQR2JRIFO hn7MgetKsg55xX4QpvsVs oD2ibXGmaRMhMPYdKDNqw b9vc2C0eK3bOL9uGAHhx5 p1aPIvOLO8WCtqrE1uXDQ 8uA4uNCLssKanMEdrXN2h ll0uUJodETY7IXExEGHpC zTfBD3eGN0oPEUxPF7hEE iiRbY2NV0eIhTvBLUxQjg sNGC9IA9hOfZtZn6iOoQ6 HxWxNfZlUfWMuQEgeX44H H2tnCC3EAPnn5NxZPtgNR lgKZQggwV8kNWwTZBgzfO oHKOsviVbtrXrzLfqg7Ew tB7ziNFsflAal1TnrV4ep zcjnKRud1FjW4DbyMOyTO YeVZBno83lReAmTO5sv0I zwlgbEkM4RUklnHDxzWIm hZR4ETatUeC6AOP3gy8hB upkPVXzwaJ8qOPmoWUxuP 9zZSBvZiBkZWZpbmluZyA vqW3dfUImjuLbKOS0lUEs rVRzlZ2zxEximgOxrdUkv E99JM8woTB0PCDtf6Ofax H4BWRqOWFwFBOoFNCyEM2 idGFpbiBhIHRvdGFsIHNj o4CwDZokES6qJHIhOEjaF iBFUiBhbmQgUGdSICJwb3 RvvJu7YGGnGRTmsAKkLOC fa9ZfUS0zHCA3RSYtFTKf OmufCVMlyX6iv8O9YNytb yQxa7GgYEuriMdgYgBQWA NpzY89GOipt4JhflZoZYd zqBmxC1trxczyLLdso5A2 K86oTXPyanYeOKFjDI04m yJeZTIqeGUljfaotO3yiX 5eXFqhwNvgfeEpmMXyn0A kIdSHj3Wjbt9lMHS3xQ0u QKQcQgT2XZfiWPv1ZVnsM wJGlKqgBI7xM60yBAS5Hx B6ZhTzZEG2LCh8XXsucNA TRICtalNbclH1WKqbZPNd OOWiTXS6JUBtRJIiuJBCI A1fGGZrMoJkYNQnJQI9LV e2BbBxXglkZwI9QcXmLXw gMjAwMikuXHBhclxwYXIg YQ3bfV2loYsmeJ5swXIbv EW0ekwiq1CoYEWyoxTijs 1lZCBvbiBwYXJhZmZpbiB yWXX1fE1sxlKwm2KesGts KXPhU5UmavSsaJuyhPWjB cNPmLPsnC7czW0ib6KrxP 9fiuiym9ooiqJrzsX6XTK xEMJ1vFXmd5MfHFBobbAh P66kUDSoxbIibwYjYQ15o E4jNJGwRWMng2KepYH5BP QluQUgfN2iqWtcfdVakxM tqR28IB1meWL7UX6cOAOe u3w4qVNgJZT5jM7sIOAhi OikNyWGqPPyo3NfwHZ4BV Akx5SmdNb3WLNevnRcnbO xIXRffbTbP00kbCEedNZl z8MsKQAgtmEojVOhPQBti sB0zSEqVQFoxYGfiJppax 8taRWcSBQkbpPGxQ60ke1 pgKQ4r4UzXM7if8DokPD3 ZWNobmljYWwgdGVzdGluZ bC1NSBwnFCpXc9glZZyQR M7PBNraYuaikCGuI2mRGT kMWxtXA3yOTvmLIfcU7Ef tEQaRSZRRJNxh8pdW0wfJ WRjf9PvqN4lqSC0wPYjXL HriMN6BLLmTZC6YOzrwSU xCWDbXYVjgTHkbHUxEw0w xQZiE1PsN8qezaWuvNNtd SF0zARyXBnsonFsRBZ8UO YqaM4yMM5iJIYcuIIlIO9 vdCBiZWVuIGNsZWFyZWQg p1GfQMIhhb70SFPvSnrap YadLLNqXx0mZp4rTGDgsj WnXFP0IqMCIV1gyhdhsNG wpKrgij6oICqjOFQARVTv EBArOQD5BKYpyP5fIJB6f BK5OWD8R7oeA6raCWScfh JeRM3mFWOijVOszgYsAMa uXI5ynWSyNHAis5Qawrhh GFKhVCR5KRV7LFmwVGLxF MZtMv5qOLXzsG3rS7XaTY F6trZjg0VnFoQAeFNakH6 1xGIltx46DHAnRYXxG6Px ZGVkIGFzIGludmVzdGlnY VTjs15rrGKygfRno5Jyid DgIKLfN7ubNXShfSFgiLD ib9QrfX0mqTSsihPjODZ1 rMYaRPMgmK6wBARvbEsmD EMvoU7yM9CrTZytSb4fSD VjbexyFY5gdl94PE8lgbL lMQ3lcsZlXA22vkQjVfYj EEv0TUcDBMjPXPy9VXFju mVfvYEcyRSdPEGreT2zyW RhKk3scGTwrYppJKWeyDP rHTlnzZonI8ebrmbzIYci aQUfk4PqcG6hiZW5NBA9q O5yWpvuPLGnyTKiVSTck5 I4NXHsqS3gicieESFwy7K fyY8bAYI3eLBpICRgb9Ik omu6TATjKIIezr3= DIAGNOSIS (test code = b4nwhJJkQNSyw0oiQZVqn 3220) GFuZzEwMzNcZnRuYmpcdW MxIHtccnRmMVxlcGljOTY zFsbrweQwVEZfvHLzX9Wx sknqNOhgFJ9gEJ0isKhrv VCfqGVvKSJuWgRxv3lhi8 45yLUxd9ahYFGAyoekxYq 3fXxlS85in2I3MymfD29r pWZtZGF8LNGwTYSpcUSpV QMfVJY7QLSfzDScX1qeUP ZeAO4kslijAWdtLOnpHZH euZI3HKAcxSKfR0GhTUQz JOrgPSTxsdn9QdQhVf2hx GVyeTcyMFxwYXJkXHBsYW luXGZzMjAgTFlNUEggTk9 CFQyvAK7HSDKeJZYQVWFB QUNIRUFMLCBSSUdIVCwgU 3VYUCiFJvF0LiXGYeLDWK ZOQSBCWSBDTElOSUNJQU4 gKERJUkVDVCBTTUVBUlMg NU4NPYPYUNruJwiBW9niD 0YgQVNQSVJBVEUpOiBccG PoAUNpMR9rTPUHOVRERRL KKmTQECBYGF0JZRGiD85O UEFUSUJMRSBXSVRIIEJSR UFTVCBQUklNQVJZIChTRU VtO31TLEIQCVspnGHklJb crpBfKNwjh5LxPPyzRBEo PK2eeChbJFUeHS5lJBCvS 7gdtN5qbqz0AnUnWAThHu Q7LQVrgpH0Sur0FLLrSKp pp4yjr5FtKWOjXHj8uJqz NuAbCAJpx8mpiqYhWlXdD QWrGWEtFCRajNReO924t6 qua1ahsrBhoQJ9AOGrJSU 8FSvditAzppH1BMzgpJBk AsT1QCylauMaVIfgmcBfo aElFgq1WBXqK820TQS1uQ mdc8zyNVY5MONrDJKnTeX kMb8ioKNiT512FSYdZQCT BKBltQo8OZRojtIhblIwo MQGc601X965x3gnLJUlbt CuqNoDjowcq8ogA985LZC hcGVydzEyMjQwXHBhcGVy eHU6HRZeZX8azteaBSnoC VtnWHNtldS4CIJlnOCjY7 GbDZDbSH7ubdcdEXT9RGl iGIIvMHF7IvPcIYCls3Ab phf6HhEbbl4wcb95TDO8w 5MerQkwWCS4MSL9VoXdUq 2uvBUqRGNrSQ5aNnKsxRJ fALYvhr08xVavQKicQYH9 LCKtonHjy0Pre7smVhFtq hRhH7wsA6YkQUHvHZDjJE FlJwYzfbYxd2Kkv6UcyZF npBb7j9jvZZChSVYczLbw q0yuOYC7SJHipQOeP8hgy Z2zRCQdXN4qlumjz5krSQ wwTFirRTWgiCO2xdF3NJR fiUAsE0DqeF9oSGJbKJhm TRCrujv5PkMmVk7paUFfz TcyMFxzYmtwYWdlXHBnbm NvbnRccGduZGVjXHBsYWl uXHBsYWluXGYwXGZzMjRc cWxcbGFuZzEwMzNcaGlja FxmMVxkYmNoXGYxXGxvY2 fzSfLoQyWpQmy5KVHgnQJ mTFSfSid2DUHgvVJuCMUM uPybeT9jOLIizPhqrC8do QT2VAOdylGpuISSrT6zMM WUrP3lIgG8MuKdJuF2XCw 3GbDapMMuzN0= COMMENT (test code = g6ltpKMxVDXfdSB8PtSeE 3359) DRlc8ybn9BhoIJsjVHmRR trtUVqcyRcfj29aPO0qN5 1YV9rSDVuIdW1RCHzhaC7 Kyy4RLKuUCSfkIHeM485l 6efi1dzapNvsYR4qIbqYN MxuiqmOiE3YFdnVQJqcyo xOBy6LKopLSOoeFP2FCUg cYIfR5ZrBHHqXO1ytxd3D WX3OLztFEYdQqX5PMZcsJ LiRZMjjLlyOGard362QUZ 3QoVuXPCiqbEmzKumvK5i ZnMyMCBUaGUgbWFsaWduY Q35LUCfvHjsBXUwCHCpAJ WcRP0rbO5clBJwfmWgiMA nfl2my79fPHG6iKOaEDHf q7M1IVHeeqV5tCAzY6Agx AMfrQ7mfr7aZv1ohKrocZ psbLDzuFmys0VvRMcoVMR sMV2qDNHbH7WfVVM1Aa93 O41kFFcbN7tihsMiBPUaO SBzZWVuLiBUaGlzIGNvdW rsGNBwmPMlm6CmcFKyNSH vbXBsZXRlbHkgcmVwbGFj JPLpkKE2QWT4BXNuGrNtu E8guDSjy8ZbRX9zBVK3fX Gwob5qIXraqJFhf0RfACA tnN0iH9MtETZppkSudAW7 cU3mYIpjBEBhA65xjIVxE XWsLnOHdaOid6AqWrouiZ Qel9TsdvP2cVscKWSqSKS voO3hvOCdNMrmCBRuNLOd FDCpWCRoBjJNdH6gwZ7ga zK5FIKcMOCuvkWkzGUuCY FyTAMeNBwuFEekf5NvKC4 MYE4fFSriNfUjUwVmIGVn PZnuXFKbsVYtyVWsBWP3b aZknTFfd5RqrJ7qKbkwIM JccGFyIFBsZWFzZSBhbHN kVUXiVELsbXNpoHY6vY9q s6x8USWfc4JsBlTtAWAlK DJccGFyXHBhciBJTlRSQU JOTBBLDV2NQdFYOAXAN96 TDKrLWFORW783UK9sXX8n zqOfKVOytdGkUORxRC5UW GhhcyBzZWVuIHRoZSBjZW crWCHii5EnVEOtWCBiZ9E kVGPxl7g8aMJ6sTFaKGnu P31lc9xhXvBwqBRqmS== CPT Code(s) (test code = u2ryjHQuRWScoNT5NcUwX 3357) XZbk4ksc0PelTYuhTNjNA udqOUhxiFryf65uNP4kG6 4KO4eFJWiGfV3QTLaloA2 Buj3GYToWFLyaXQlH670g 6cwe5btfcBcjYQ2yVsnDO WwgbjfAnR2QIkjRWUtlfi eMYq3JBvdSIPwqSM2XRSk zCPwY1YtXYSdWZ8lxba4S PL5COuqOHTrAiX8ILMqwY UsIKYpsPqwLNydz021WFH 9NpVuXOTyzrGtgBtokZ9w RtOgWSH5VRR9IzsiKZdiL sLgXBx8JrK1YNW2GYQ2In wgODgzNDFccGFyfQ== CLINICAL DATA (test code l9jrxYAhFJSzvOX5GoGcQ = 3355) UIos7mqx8DxuIMyoBBqLX dclAIyjxIrsh90rKX2dC3 3LL5aZIQeLdX2QQRsotQ1 Keq4RIBtFKIhtQMyL010o 3gwd5mxvwMxqKQ3SXYyEY CuR7SlOT0nOJTfxLBvU02 vbPKnGGO9XXToCZPukGTp PHMzJTL1LPOrlUXgK5osY BDnDL5mihclIZfvNDleVG IupNI0OJZgePEvN1XuBNQ bVWsvIIEivmi6QbCdKl5f dGVyeTcyMFxwYXJkXHBsY WluXGZzMjAgTHltcGhhZG Qeo8NzeXi8FIutBuWfYQB fqBpyTB8vN1kaJB9aRYCk e49ikPD0QLIyFEWhVCTun 4Jcu3PsNIHcLDzyUlYwXJ 1pKLEwTaJzN3OhaPdvp6E pTCvsblcgtLD2KD6ctrNc m6xqIcJdAJDsxWL0n9Q6K V3uKRUmX3r8BKYkXVDhvL CnYV7lUSMhgT5oQcBaBRC gA5RyVJCsjWq+cmlnaHRc za6ck5KkY4ZgsKjkK0jvp T0tHNHqCPOfw46vpD1dml DtiTAmfA2tBV97uSObWUb vcnNlbmluZyBiYWNrIHBh qW5nSLEuq6IoL4qgLS6TI OZ9AlEsKvIqq4tbc6XhJI IbHnZyGNOaa4syY4afUGE olBLtTSYinT1uSZAfGFW7 xDTmQWGoYNUhzQz0lQSeJ 1CwBJ6kp3YshUCchNE0XI K2SWWhXzGehKScTKRuRU9 lCZWsu0DbpIn0SHAph6Fj zbChij3ruNFccC5bjwIso lBDNddbNKxaONK3GTIsgM FqXX5yrXFzVOPwlX8rKYG mgDZwcHQxxOHqtTC8lrYz WXSdHsUfuB0bADSpflahp mdlZCBMTiBuZWFyIGFvcn RpYyBhcmNoLiBccGFyfQ= = SPECIMEN SOURCE (test o3iqoBYqICCbyKO8RaSjH code = 3377) XWnv4swz3TbyCJwoBNxFE ikmLXqitKiio97mHM0tV4 9HA8kNDKyUlX8XZBjozN2 Aau9RKOqUXYaqBRkB610e 9hjy8zkorIsjBX2gVzuDS XzaaymSoS1AJssRVEeqee vNFf3UOyzYONegRH2BNJq rYSpR9ZrZLDnJP8rmhx6J XV1RGqiJFGkWfS6IFBqkX MbRHRkdYtrSFbjf774FIA 5HaGnAOSwduRrmQehsD1s WfDhIWIHSF0XFDAQX9OGR PLOS9vNEiTVTUSHAMURD1 qDTPvvHDBVV2uBDIIFSAB SYH8KOPAETTMUVCVhJu9I XHBhcn0= GROSS DESCRIPTION (test p6dijCCqRHLjaRXBJYHnO code = [id number]) 5pmfhEtINCimVEhZ9Keqe anCHwmWH1lNC8lxYckeZY bwOMsHQ9ITLLeIbAhRDIp cGVydzEyMjQwXHBhcGVya SO1PCVpQC1llphzCRnuUX tbBSJmvjF3UICeyREiV8K bMWLzXZ4yvuvoHHX7EHya lJ0scxJLOgcdCb0zuGQcb HtcZjFcZmNoYXJzZXQwXG KolGomTKGyGIy5dZ1OPpi cDDC4CMUEXjbnGZErSW7K t4ygIOYcoCMmKSE6YRpls WWiROFfUPGuVNj1IWDfYI uxkFRoVU6qcAtwDpbpjMh dv9KznVXiSTiaHLEgBDAs ZFjaPYVzQP7PWiRePUD5I EW8RZTeMRu3ZFt1SK6GHr StDDAiXTz2PWn4DSNoSCc 6EIrcBF7QGNBbVIn0TMGy NjG9HSH0MOLxWDMmHqYwZ GYgQXJpYWwgXFxmbCBcXG 2qoGtipRUokdFHIjHFcA8 ivRQQj1UjYNOHg3lognZN EFLblNSwB9teHSiqWKSwN 7w1MNPSfHH1eU7uLPYDJa tjHOWsYJnqSKWqX19vf3Z Hd6EyQB3KTYr1jiCjvctr gP3rQADxojSfUBmqsRElB 2hcZnMyMCBSZWNlaXZlZC JtQRRxqXXodE5iD6s2l5T wM3ucdqHrGAIgHEHlARQw cmVjdCBzbWVhciBzbGlkZ FZ0BUBaKRBthdZgZGAgmQ aaOqlkS9afPXYhRLXoL7N kxJQyuD9xraQdsGNtIMDv jC2kQp3tvLOetB0yGNUvZ zowMCBwbSwgMDgvMjYvMj ScHodeEA8IFMYmJPwaMQJ keXCSNDG5FD3bRHiofQKv nsgoEVEnU3UmK1KnzvPtx CIbSFEtwzEsr2fdAHU6PT NsbXVsdDBcZnMxNlxwYXJ 1DCmec7owWZF5QHKirDRd dDAgDQpcZnMxNntcZXBpY 2EnJ5OtlfV5HXu5 INTRAPROCEDURAL ADEQUACY r4sjrRReQNRqyPB1GjVwY (test code = 3370) GCtu4wkv7BrvNNmpLUyFR mzlIMvlwMovx09sHU7bN7 1RN1oONJkVqV9QTPhwyL0 Ncp8GQHmNPSpxCLqA990i 0tmm1nylgXuuJB1yPnwWR VizehdWdK9OZbxUUXatgj mJVk1DYxfKHZhdDL6FWIh rOZgE9JcDWTjZM9ztta3S AK6GIyqWJTjVbD5JJFsdL PlFHAlaFrgEOihn965NIY 2YfOnDSLkdiUxgYjqjW9q ZnMyMCBJTkFERVFVQVRFL ZHRZsOQJM0RPO4DAGHZXq HUYxSRSO3FFuGUJVOHNNH OFLBVV0HNQCWZSHmKMNXe TNZ3NKZhDJ2lNPIBRIegA XJ9 MICROSCOPIC DESCRIPTION j9pmwEDrZGZkoTZ3QnIcI (test code = 3371) CVic6bhz0OioAMwcHYsNC aatKIprmJaop11oHB9vD0 3GZ7kEBScCvP7EXJwihV0 Zly3ZENuGQVgqUZxG178c 6gtm3rtnqZldEQ3bAolKZ NfetslLaW9TSfkKJWeezl lPZf0OXtmVNEwyDS5HDCi aFAjD2QvVVXsIA6rwqn6R IB1TPadNCHdArB2OYGniA DzQUQsbSvpUJtgn846CVZ 2TaMpCZHsfhQpgMpuqX7t YtJrQLNGSGNyi4BrIVTyG FxwYXJ9 SPECIAL STUDIES (test d8vtnIVkFEXdbXK4TvOyE code = 3376) BSmw4jym3JqaZEalNApNV zodJGvwpRfnm80kGS3xY5 3GK7jNPYqUcI6TYEunpL6 Jqx2KRNtHPAgcCNoJ707W QAxMDGwbCqqnds9fJ10HO WkxB4hcFVyREcepeKtCKt mhfXhmdZcDai9SUP7vByo RXAdijrmAuE1OWhaCLAgi xvuVVh9YMgdOHWulWB5WB FydDYaF1RuGHUiFC8txfw 8XFD7CYhcSUWtEnY0VKBv oEVmPROqhRvjUCfud744F VK3JkTmXPTctiBmpWmdvD 5cZjFcZnMyMlxjZjEgVGh oKQzfvGQnyGTcqFA6qO9d BQ6kHZLcpPDwV3XnRKWod zPrwEEcGLW6yLWtcWCbBI 7nMOmdcRYhn2ndl3LnY9f lbJvcnNS5YV4rWOBhAZZx VAmcw8WonP2wFbisMZOlP 5JONCCyBKBdp4z0rFNfMA BzdHJvbmdccGFyIFRURjE bWO4fN2K8vMRiACMeepVY KldnzF6ccVTxypZvsGPrI YUoqsOkh5laM3phJUUjVG T7JB3gfeTcVwJbAX9gnW7 5a1Lsa33vi37rwU5jwKLc jlJzC71cjQPxmYFit0GiK ISxbjPvgFM7NRScRRikgv jvm2i6yOJ2qAOzkEOusZV 0aXNzdWUuICBUaGVzZSBj n920tt5oBVNneLMciwDtn F1zCVufexqxzCXcBO6xGP MoKXEqCNUgQU48ntCzYY9 brBHar4ygeqXmxTPxa4Qe oZR4XRGbjXVtrxqeOb5eJ C59OYYpVGsoqU2zjSOqaf FuQC0zVX5yG7W1rHMhSOK gpiGvy2qzLXhhOL8eHJRd aWxhYmxlIGFyZSBldmFsd NY9EXNelBObAMNomGJnRE rnqWMoc4obg2QcG5nctBw mdUT2QUVoN0qviADmbMK1 ZNE3zS6nHNkavgBjSPNvq 6HpPZFcOAZqItU1cX9gSJ K5LqSWnHalFBM1RsY5JFa qTLGqLT5xWRgbDXndN6Oj zIYpBYSLLJFtx8vnI0qzV YKjr2EksQ4meQV9tYTcGF OenOH7OVMiDBQ4NVvwoTJ tDDHsMLCkiKGayUDwJe4f eLMwY4ZeV7jncoSgeVEjo AA6zVKuYZaoynIaQDQ2PO CeqF2sEQ9rOBXawIMdMO5 vdCBiZWVuIGNsZWFyZWQg y4KfPHNfty42ARVsDoqcp GrmPSVrTt0tSt9xMFHftt NlTAZ9IaZDJQ3kaobrzYI miIxpiq1zXZvfPDMGVNWs GIOsJIY7HEByeM7ySAV9e KM2LEZ9T8dmO4dsGLUwmr YuYA2uRQSdnJPjmzKzKXs vCI6gnYEbYAKsu0Oxkqdb EXXsWPP5FGE4CEobJYWaO SOqEk6xKOOglQ9eT0MiOT X3wmHkm0VwHjIKnUZmqU3 0tEUcdj01XIQsYUKoN6Og ZGVkIGFzIGludmVzdGlnY EXaw79mvGSekkMll1Puew YcOSFdV5hgUXYieWLbjCO dy0WuyB0xrYPvqaFqHVK7 hQQtOUBhrL3hAYFpfCtrN PMzuP1aJ3UnIWsmTm2mNX VhiuzpML2jwo69FL2tgyW fUS5jkzEwZP24qiRwNzKr PSi2EXuBOJjPARz9ZZPcq lWdyCDbuNSiJGVreK9ddC IzUx4ppOZjwTraNTKelWY oTValhDtfQ2okoiceSIgb kOUnu9NatT9eeNZ8ZNB0v P3sQzpnICV7 Gross assessment was [facility] performed at ([facility], = 2777) Department of Pathology, [address] [place] [address], Technical component was [facility] performed at ([facility], = 8577) Department of Pathology, [address] [place] [address], Professional component [facility] was performed at ([facility], code = 2779) Department of Pathology, [address] [place] [address], [facility] BY [id number] 14:04:03 Medical Cytology Report Case: [id number] Authorizing Provider: Kristi Clifton MD Collected: 06/26/2022 01:06 PM Ordering Location: [facility] Received: 06/26/2022 01:29 PM PERIOPERATIVE SERVICES Pathologist: Theo Thacker MD Specimen: Lymph Node, Lower Paratracheal, Right, Station 4R REAS ON FOR ADDENDUM: TO REPORT RESULTS OF HER2 FISHRESULTS: NEGATIVEInterpretation:HER2 Signals/Nucleus:2.1CEN17 Signals/Nucleus: 1.8HER2/CEN17 Signal Ratio: 1.1Please see attached/scanned [facility] [employer] report for complete interpretation.Addendum electronically signed by Shantelle Mcgrath MD on 07/14/2022 at 2:04 PMReason for addendum: To report results of biomarker studies.BIOMARKERS PERFORMED ON SECTION [id number] RECEPTOR: POSITIVEProportion score: 5/5Intensity score: 3/3SUMMARY: >90% POSITIVE, STRONG INTENSITY PROGESTERONE RECEPTOR: NEGATIVEProportion score: 1/5Intensity score: 1/3SUMMARY: <1% POSITIVE, WEAK INTENSITYHER 2 OVER-EXPRESSION: EQUIVOCAL (SCORE: 2+)Pending HER2 FISH, addendum report to followCAP REGULATION: FIXATION TIME FOR BIOMARKERS ASSESSMENTCollection date and time:06/26/2022; 1306 HRSPlaced in fixative date and time: 06/26/2022; 1500 HRSRemoved from formalin dateand time: 06/27/2022; 0400 HRSMethodology:Fixation type and length: tissue was fixed in 10% neutral buffered formalin for a minimum of at least 6 hours and no longer than 72 hours.Antibody and Assay Methodology: Antibodies for ER, PgR, Her2 and Ki67 were assessed using clones SP1, 1E2, 4B5 (FDA Approved [place] [employer]) and 30-9 respectively utilizing the ultraView Chidester DAB Detection Kit from [employer] [place], [place].Control Slides Examined: In-house known ER, HI, HER2 and Ki67 positive controls wereevaluated along with test tissue. These control slides run alongside of the patients sample show appropriate staining.Interpretive Criteria: The staining results are according to the ASCO/CAP guidelines for HER2 (see Kathy FRAZIER, Jocelyne Fletchre, et al. HER 2 Testing in Breast Cancer: ASCO/CAP Focused Update. Arch Pathol Lab Med. 2018;142(11):4711-1160. doi:10.5858/arpa.1730-8138-UC) and ER/HI (see Heber Santacruz, Javed Benavides, et al. ER and HI Testing in Breast Cancer: ASCO/CAP GuidelineUpdate. J Clin Oncol. 2020;38(12):4783-7601. doi:10.1200/JCO.19.58114).By ASCO/CAP guidelines, ER and HI "positive" requires greater or equal to 1% tumor cells showing nuclear staining. Tumor showing 1% - 10% tumor cells staining for ER are designated "ER Low Positive".HER 2 cyn "positive" (3+) requires circumferential membrane staining that is complete and intense within more than 10% of the invasive tumor cells. HER 2 cyn "equivocal" (2+) requires complete membrane staining that is weak / moderately intense in >10% of invasive tumor cells. HER 2 cyn "negative" (1+) requires incomplete, faint membrane staining in >10% of invasive tumor cells and HER 2 cyn "negative" (0) requires no stainingor faint incomplete membrane staining in <= 10% of invasive tumor cells.The ER/HI Proportion Score indicates the proportion of positive staining tumor cells (0 = none; 1 < 1/100; 2 = 1/100- 1/10; 3 = >1/10-1/3; 4 = >1/3-2/3; 5> 2/3). The intensity score indicates the average intensity ofpositive staining tumor cells (0 = none; 1 = weak; 2 = intermediate; 3 = strong). For the purpose ofdefining "positive", the proportion and intensity scores were added to obtain a total score (range 0-8). ER and PgR "positive" (total score >2) were defined in studies correlating IHC total scores with clinical outcome in patients receiving hormonal therapy (see: Modern Pathol 11:155, 1997; J Clin Oncol 17:1474, 1998; Int J Cancer 89:111, 1999; Breast Cancer Res Treat 76:S36[abst#30], 2002).Immunoh istochemistry was performed on paraffin sections for the factors listed. The immunostaining signals were expressed as scores representing the estimated proportion and intensity of positive tumor cells.Appropriate positive and negative controls were included in the evaluation.Immunohistochemistry technical testing was performed at [facility], Pathology Laboratory where it was developed and [...] clinical laboratory testing.Tissue block(s) for molecular testing: [id number] electronically signed by Shantelle Mcgrath MD on 07/01/2022 at 3:46 PMLYMPH NODE, LOWER PARATRACHEAL, RIGHT, STATION 4R EBUS FNA BY CLINICIAN (DIRECT SMEARS AND CELL BLOCK OF ASPIRATE): - METASTATIC CARCINOMA COMPATIBLE WITH BREAST PRIMARY (SEE COMMENT) Signing Pathologist Direct Phone Line: [phone] signed by Theo Thacker MD on 06/30/2022 at 1:34 PMThe malignant cells are seen mainly in fibro-connective tissue in the cell block. No lymphoid tissue is seen, focal submucosal glands are seen. This could represent a completely replaced metastatic lymph node or extranodal tumor. Clinical correlation is recommended. Breast biomarkers will be reported in an addendum. Findings were conveyed to Kristi Clifton MD on 06/30/22 at 1:30 pm by secure messaging.Please also see cytopathology case [id number] CONSULTATION: - Blu Mcgrath MD has seen the cell block and agrees with the diagnosis. 72767, 61199, 99867, 95386, 61308Rpgaficskyhsecl at the neck and associated hoarseness and difficulty speaking x 6 months, history of right breast cancer in 1999 s/p right mastectomy/chemoradiation in remission with worsening back pain. Thoracic MRI 06/02/22 showed T12 pathologic compression fracture and multifocal osseous metastatic disease of visualized spine w/ lesions on C6, T7, T9, also noted a moderate left pleural effusion, enlarged LN near aortic arch. LYMPH NODE, LOWER PARATRACHEAL, RIGHT, STATION 4R EBUS FNAA. Lymph Node, Lower Paratracheal,Right, Station 4R.Received 35 mls in cytorich red and 3 direct smear slides; prepared cell block (A2) (cell block placed in formalin at 3:00 pm, 06/26/2022) INADEQUATE, NO LYMPHOCYTES PRESENT. RARE ATYP ICAL CELLS (12:05 PM, CM)Performed. The interpretation of this case included the use of immunohistochemistry or special stains.GATA3- positive, strongTTF1- negativeER: positiveControl Slides Examined: In-house known positive controls were evaluated along with the test tissue. These control slides run alongside of the patients sample show appropriate staining. Internal positive and negative controls when available are evaluated Immunohistochemistry technical testing was performed at [facility], Pathology Laboratory where it was developed and its performance characteristics weredetermined. It has not been cleared or approved [...] to perform high complexity clinical laboratory testing.[facility], Department of Pathology, [address] [place] [address], [facility], [facility], [address] [place] [address], [facility]nvqpMore[facility], Department of Pathology, [address] [place] [address], DQMN NEEDLE ASPIRATE BY EBUS 2022-06-30 13:42:35Medical Cytology Report Case: [id number] Authorizing Provider: Kristi Clifton MD Collected: 06/26/2022 01:05 PM Ordering Location: [facility] Received: 06/26/2022 01:32 PM PERIOPERATIVE SERVICES Pathologist: Theo Thacker MD Specimen: Lymph Node, Subcarinal, Station 7 LYMPH NODE, SUBCARINAL, STATION 7 EBUS FNA BY CLINICIAN (DIRECT SMEARS AND CELL BLOCK OF ASPIRATE): - CRUSHED MALIGNANT CELLS IN FIBRO CONNECTIVE TISSUE CONSISTENT WITH METASTATIC CARCINOMA, COMPATIBLE WITH BREAST PRIMARYSigning Pathologist Direct Phone Line: [phone] signed by Theo Thacker MD on 06/30/2022 at 1:42 PMPredominantly crushed malignant cells are seen mainly in fibro-connective tissue inthe cell block. No lymphoid tissue is seen. This could represent a completely replaced metastatic lymph node or extranodal tumor. Clinical correlation is recommended. Findings were conveyed to Kristi Clifton MD on 06/30/22 at 1:30 pm by secure messaging. Please also see cytopathology case [id number] INTRADEPARTMENTAL CONSULTATION: - Blu Mcgrath MD has seen the cell block with IHC and agrees with the diagnosis. 30550, 60105, 43789, 30932, 59283 x 3Lymphadenopathy at the neck and associated hoarseness and difficulty speaking x 6 months, history of right breast cancer in 1999 s/p right mastectomy/chemoradiation in remission with worsening back pain. Thoracic MRI 06/02/22 showed T12 pathologic compressionfracture and multifocal osseous metastatic disease of visualized spine w/ lesions on C6, T7, T9, also noted a moderate left pleural effusion, enlarged LN near aortic arch.LYMPH NODE, SUBCARINAL, STATION 7 EBUS FNAA. Lymph Node, Subcarinal, Station 7.Received 32 mls in cytorich red and 3 direct smear slides; prepared cell block (A2) (cell block placed in formalin at 3:04 pm, 06/26/2022) LYMPH NODE, SATION 7, EBUS FNA: NOT ADEQUATE, NO LYMPHOID TISSUE PRESENT. (12:45 PM, [place])Performed. The interpretation of this case included the use of immunohistochemistry or special stains.GATA3- positiveER- positiveTTF1- aheshqzaA94- negativeControl Slides Examined: In-house known positive controls were evaluated along with the test tissue. These control slides run alongside of the patients sample show appropriate staining. Internal positive and negative controls when available are evaluated Immunohistochemistrytechnical testing was performed at [facility], Pathology Laboratory where it was developed and [...] to perform high complexity clinical laboratory testing.[facility], Department of Pathology, [address] [place] [address], [facility] of [facility], [address] [place] [address], [facility], [address] [place], [place] [id number], Oupn Needle Aspirate (EBUS)2022-06-26 15:00:53 Test Item Value Reference Range Interpretation Comments Cytology (test code = See Separate Report 2629) [facility]2022-[facility]-26 15:00:53 Test Item Value Reference Range Interpretation Comments Cytology (test code = See Separate Report 2629) [facility] [id number] 15:00:53 Test Item Value Reference Range Interpretation Comments CYTOLOGY RESULT POINTER See Separate Report (MARKUS) (test code = 2629) EBUS FNA [id number] 15:00:53 Test Item Value Reference Range Interpretation Comments CYTOLOGY RESULT POINTER See Separate Report (MARKUS) (test code = 2629) RAD, CHEST, 1 VIEW, NON [id number] 14:51:00Reason for exam:->Post-opShould this be performed at the bedside?->Yes [facility] 1945 Sex: FFINAL REPORT [...] pneumonia or pulmonary edema. Signed: Sebastian Bazzi VerifiedDate/Time: 06/26/2022 14:51:19 Reading Location: [facility] Radiology Reading Room Electronicallysigned by: SEBASTIAN BAZZI MD on 06/26/2022 02:51 PMPOC-Glucose [id number] 10:08:18 Test Item Value Reference Range Interpretation Comments POC-Glucose Meter (test 129 mg/dL 70-110 H : TE STED AT [facility] code = 1538) [address] [facility], 770 30: Crematorium Operator/Techni roslyn ID = [id number] for EMI WILLIAMSON Lab Interpretation (test Abnormal code = 34354-0) [facility] [id number] 10:08:18 Test Item Value Reference Range Interpretation Comments POC-Glucose Meter (test 129 mg/dL 70-110 H : TE STED AT [facility] code = 1538) [address] [facility], 770 30: Crematorium Operator/Techni roslyn ID = [id number] for EMI WILLIAMSON Lab Interpretation (test Abnormal code = 11814-6) [facility] [id number] 10:08:18 Test Item Value Reference Range Interpretation Comments POC-GLUCOSE METER 129 mg/dL 70-110 H : TESTED A T [facility] 6720 (BEAKER) (test code = BRENNA Girard [facility], 1538) [address]: Crematorium Operator/Techni roslyn ID = [id number] for EMI ANGEL Urine [id number] 20:32:45 Test Item Value Reference Range Interpretation Comments Final Report (test code 10 - 50,000 cfu/ml A = 8488) Streptococcus agalactiae (Group B) Path Review - Urine The results have been A (test code = 8483) reviewed and electronically signed by Pathologist:EDY GEE MD #[id number] Lab Interpretation Abnormal (test code = 24329-9) [facility] [id number] 20:32:45 Test Item Value Reference Range Interpretation Comments Final Report (test code 10 - 50,000 cfu/ml A = 8488) Streptococcus agalactiae (Group B) Path Review - Urine The results have been A (test code = 8483) reviewed and electronically signed by Pathologist:EDY GEE MD #[id number] Lab Interpretation Abnormal (test code = 55608-0) [facility] HospitalHIV-1/2 Antigen and Antibodies, Fourth [id number] 04:20:55 Test Item Value Reference Range Interpretation Comments HIV Ag/Ab, NON-REACTIVE NON-REACTIVE HIV-1 antigen a nd 4TH Gen (test HIV-1/HIV-2 an tibodies were code = 03343) notdetected. T here is no laboratory evid [...] it pertains, or as otherwise permitted by [place] w.A general authorization f or the release of medi can orother information is NOT sufficient for this purpose. For additional information please refer tohttp://[employer]/faq /THE453(This link is being p rovided for informational/e ducational purposes only.) The performance of this assay has not been clinicallyvalid ated in patients less t greenwood 2 years old. Lab test p erformed by:Lab Mnemonic : [employer] [facility] [id number] [place] [address]UPRYL Tony DOLAN MD [facility] Paw PawHIV-1/2 Antigen and Antibodies, Fourth [id number] 04:20:55 Test Item Value Reference Range Interpretation Comments HIV Ag/Ab, NON-REACTIVE NON-REACTIVE HIV-1 antigen a nd 4TH Gen (test HIV-1/HIV-2 an tibodies were code = 54135) notdetected. T here is no laboratory evid [...] it pertains, or as otherwise permitted by la w.A general authorization f or the release of medi can orother information is NOT sufficient for this purpose. For additional information please refer tohttp://[employer]/faq /BQS424(This link is being p rovided for informational/e ducational purposes only.) The performance of this assay has not been clinicallyvalid ated in patients less t greenwood 2 years old. Lab test p erformed by:Lab Mnemonic : [employer] [facility] [id number] [place] [address]QZWJT Tony DOLAN MD [facility] HospitalUrinalysis w/Microscopic if [id number] 20:20:14 Test Item Value Reference Range Interpretation Comments UA Color (test code Straw Straw-Yellow = 53004-8) UA Appear (test code Clear Clear = [...] Comment No microsco pic exam code = 92231-5) performed, physiochemical findings are ne nolan [facility] HospitalUrinalysis w/Microscopic if [id number] 20:20:14 Test Item Value Reference Range Interpretation Comments UA Color (test code Straw Straw-Yellow = 68692-9) UA Appear (test code Clear Clear = [...] Comment No microsco pic exam code = 15593-3) performed, physiochemical findings are ne gative [facility]09 Test Item Value Reference Range Interpretation Comments aPTT (test code = 30.1 See_Comment [Automate d message] The 09013-9) system which ge nerated this result transmit rey reference range : 22.8 - 34.2 second(s). The reference range was not used to interpr et this result as lul l/abnormal. [facility] HospitalaPTT2022-08-12 17:55:09 Test Item Value Reference Range Interpretation Comments aPTT (test code = 30.1 See_Comment [Automate d message] The 49419-6) system which ge nerated this result transmit rey reference range : 22.8 - 34.2 second(s). The reference range was not used to interpr et this result as lul l/abnormal. [facility] ([facility])2022-06-12 17:55:02 Test Item Value Reference Range Interpretation Comments NT ProBNP (test code 373 pg/mL See_Comment [Autom ated message] The = 95226-1) system which ge nerated this result tra nsmitted reference range : <=450. The reference r azul was not used to int erpret this result as normal/abnormal . [facility]2022-06-12 17:55:02 Test Item Value Reference Range Interpretation Comments NT ProBNP (test code 373 pg/mL See_Comment [Autom ated message] The = 80031-0) system which ge nerated this result tra nsmitted reference range : <=450. The reference r azul was not used to int erpret this result as normal/abnormal . [facility] HospitalFractionated [id number] 17:52:21 Test Item Value Reference Range Interpretation Comments Bili Total (test 0.4 mg/dL See_Comment Indocyanine Green (ICG) code = 1975-2) may cause fal sely elevated biliru bin results. Total and direct bilirubin must not be measured from s amples containing indo cyanine green. False el evation of total bilirubin can be seen in patient s with IgG concentrations above 28 g/L. [Automated message] The system [employer] generated this result transmitted ref erence range: <=1.2. T he reference range was not used to interpr et this result as normal/abnormal . Bili Direct (test See_Comment Indocyanin e Green (ICG) code = 1968-05) may cause fal sely elevated biliru bin [...] 0.0-0.9 Unable t o calculate code = 1970-11) Indirect Bili shirley result due to some par ameters are outside rep ortable range [facility] HospitalFractionated [id number] 17:52:21 Test Item Value Reference Range Interpretation Comments Bili Total (test 0.4 mg/dL See_Comment Indocyanine Green (ICG) code = 1974-12) may cause fal sely elevated biliru bin results. Total and direct bilirubin must not be measured from s amples containing indo cyanine green. False el evation of total bilirubin can be seen in patient s with IgG concentrations above 28 g/L. [Automated message] The system [employer] generated this result transmitted ref erence range: <=1.2. T he reference range was not used to interpr et this result as normal/abnormal . Bili Direct (test See_Comment Indocyanin e Green (ICG) code = 1968-05) may cause fal sely elevated biliru bin [...] 0.0-0.9 Unable t o calculate code = 1970-11) Indirect Bili shirley result due to some par ameters are outside rep ortable range [facility] HospitalTotal [id number] 17:52:14 Test Item Value Reference Range Interpretation Comments Total Protein (test code = 2885-2) 7.2 g/dL 6.4-8.3 [facility] HospitalTotal [id number] 17:52:14 Test Item Value Reference Range Interpretation Comments Total Protein (test code = 2885-2) 7.2 g/dL 6.4-8.3 [facility] HospitalElectrolyte [id number] 17:52:11 Test Item Value Reference Range Interpretation Comments Sodium Lvl (test code = 134 See_Comment L [Au tomated message] 2951-2) The system [facility] generated this result transmitted ref erence range: 136 - 14 5 mEq/L. The refe rence range was not u sed to interpret this result as normal/abnor mal. Potassium Lvl (test code 4.2 See_Comment [A utomated message] = 2823-3) The system [facility] [employer] generated this result transmitted ref erence range: 3.5 - 5. 1 mEq/L. The refe rence range was not u sed to interpret this result as normal/abnor mal. Chloride (test code = 98 See_Comment [Auto mated message] 3545-0) The system [employer] generated this result transmitted ref erence range: 98 - 107 mEq/L. The refe rence range was not u sed to interpret this result as normal/abnor mal. CO2 (test code = 2027-9) 25 See_Comment [A utomated message] The system [employer] generated this result transmitted ref erence range: 22 - 29 mEq/L. The reference r azul was not used to interpret this result as normal/abnor mal. Anion Gap (test code = 11 See_Comment [Aut omated message] 00792-1) The system [employer] generated this result transmitted ref erence range: 4 - 14 m Eq/L. The reference r azul was not used to interpret this result as normal/abnor mal. Lab Interpretation (test Abnormal code = 54306-6) [facility] HospitalElectrolyte [id number] 17:52:11 Test Item Value Reference Range Interpretation Comments Sodium Lvl (test code = 134 See_Comment L [Au tomated message] 4611-2) The system [employer] generated this result transmitted ref erence range: 136 - 14 5 mEq/L. The refe rence range was not u sed to interpret this result as normal/abnor mal. Potassium Lvl (test code 4.2 See_Comment [A utomated message] = 2823-3) The system [employer] generated this result transmitted ref erence range: 3.5 - 5. 1 mEq/L. The refe rence range was not u sed to interpret this result as normal/abnor mal. Chloride (test code = 98 See_Comment [Auto mated message] 7255-0) The system [employer] generated this result transmitted ref erence range: 98 - 107 mEq/L. The refe rence range was not u sed to interpret this result as normal/abnor mal. CO2 (test code = 2027-9) 25 See_Comment [A utomated message] The system [employer] generated this result transmitted ref erence range: 22 - 29 mEq/L. The reference r azul was not used to interpret this result as normal/abnor mal. Anion Gap (test code = 11 See_Comment [Aut omated message] 66979-6) The system [employer] generated this result transmitted ref erence range: 4 - 14 m Eq/L. The reference r azul was not used to interpret this result as normal/abnor mal. Lab Interpretation (test Abnormal code = 37161-8) [facility] HospitalGlucose [id number] 17:52:09 Test Item Value Reference Range Interpretation [...] diabetes Lab Interpretation (test Abnormal code = 19227-9) [facility] HospitalGlucose [id number] 17:52:09 Test Item Value Reference Range Interpretation [...] diabetes Lab Interpretation (test Abnormal code = 50009-0) [facility] HospitalTroponin T (In-House)2022-06-12 17:34:01 Test Item Value Reference Range Interpretation Comments Troponin T (test code 15 ng/L See_Comment < 19 n g/L Suggest retest = 95875-6) at 3 to 6 hours later to rule out myocar dial infarction >= 1 9 to <=52 ng/L Possible m yocardial injury. Suggest retest at 3 hours. - a ch azul of < 20 ng/L, retest at 6 hours - a strong ge of >= 20 ng/L, sugges tive of myocardial infa rction > 52 ng/L [...] int erpret this result as normal/abnormal . [facility] HospitalTroponin T (In-House)2022-06-12 17:34:01 Test Item Value Reference Range Interpretation Comments Troponin T (test code 15 ng/L See_Comment < 19 n g/L Suggest retest = 55104-9) at 3 to 6 hours later to rule out myocar dial infarction >= 1 9 to <=52 ng/L Possible m yocardial injury. Suggest retest at 3 hours. - a ch azul of < 20 ng/L, retest at 6 hours - a willis e of >= 20 ng/L, suggestiv e of myocardial infa rction > 52 ng/L Sugges tive of myocardial infa rction Critical value will [...] int erpret this result as normal/abnormal . [facility] [place]
[2022-10-27] MEDS ORDERED: ONDANSETRON 4 MG/2 ML VIAL ONE (00:29)
[2022-10-27] MEDS ORDERED: NA CHLORIDE 0.9% 250 ML ONE ×2 (00:29→02:07)
[2022-10-27 00:40] LABS: Protime INR 1.2
[2022-10-27 00:42] LABS: Absolute Lymphocytes (CBC) 0.5 K/uL (0.7-4.9); Hematocrit 32.1 % (36.0-45.0); Lymphocytes % 14.2 % (15.3-44.8); MCV 95.9 fL (80-100); MPV 7.1 fL (7.6-11.3); RBC Red Blood Cell Count 3.35 M/uL (3.86-4.86)
[2022-10-27 00:56] LABS: Albumin 2.8 g/dL (3.4-5.0); Bilirubin Direct 0.2 mg/dL (0-0.2); Bilirubin Total 0.7 mg/dL (0.2-1.0); Magnesium 1.5 mg/dL (1.6-2.4); Protein, Total 8.5 g/dL (6.4-8.2); Troponin High Sensitivity 21.1 pg/mL (<58.9)
[2022-10-27 01:39] LABS: SARS-COV-2 RT PCR NEGATIVE (NEGATIVE)
[2022-10-27 02:04] LABS: Urine Blood Negative (Negative); Urine Glucose 2+ (Negative); Urine Protein 2+ (Negative); Urine Specific Gravity 1.015 (1.005-1.030); Urine pH 5.5 (5.0-7.0)
[2022-10-27] MEDS ORDERED: CEFEPIME 1 GM/VIAL ONE (02:07)
[2022-10-27] MEDS ORDERED: NA CHLORIDE 0.9% 100 ML IV ONE (02:07)
[2022-10-27] MEDS ORDERED: AZITHROMYCIN 500 MG INJ IVPB ONE (02:07)
--- NOTE | 2022-10-27 02:12 | ER ---
Nurse's Notes [facility] Name: Neris Nevarez Age: 77 yrs Sex: Female : 1945 Arrival Date: 10/26/2022 Time: 23:16 Bed 5 Private MD: Diagnosis: Pneumonia due to other specified infectious organisms;Altered mental status, unspecified Presentation: 10/26 23:30 Chief complaint: Patient's son or daughter states: "she is hallucinating,weak and not as6 acting herself". Coronavirus screen: At this time, the client does not indicate any symptoms associated with coronavirus-19. Ebola Screen: No symptoms or risks identified at this time. Initial Sepsis Screen: Does the patient meet any 2 criteria? No. Patient's initial sepsis screen is negative. Does the patient have a suspected source of infection? No. Patient's initial sepsis screen is negative. Risk Assessment: Do you want to hurt yourself or someone else? Patient reports no desire to harm self or others. Onset of symptoms was October 26, 2022. 23:30 Method Of Arrival: Wheelchair as6 23:30 Acuity: YOLIE 2 as6 Historical: - Allergies: 23:34 No Known Allergies; as6 - PMHx: 23:34 Cancer, Breast; Diabetes - NIDDM; DVT; Hypertensive disorder; Hypothyroidism; as6 - PSHx: 23:34 section; GALLBLADDER; mastectomy; as6 - Immunization history:: Client reports having NOT received the Covid vaccine. Flu vaccine is not up to date. - Social history:: Smoking status: Patient denies any tobacco usage or history of. Screenin/27 00:00 [facility] ED Fall Risk Assessment (Adult) History of falling in the last 3 months, jb4 including since admission No falls in past 3 months (0 pts) Confusion or Disorientation Yes (5 pts) Intoxicated or Sedated No (0 pts) Impaired Gait No (0 pts) Mobility Assist Device Used Yes (1 pt) Altered Elimination No (0 pt) Score/Fall Risk Level 3 or more points = High Risk Oriented to surroundings, Maintained a safe environment, Educated pt \\T\\ family on fall prevention, incl call for assistance when getting out of bed, Assessed \\T\\ reinforced patient's understanding of fall precautions, Provided non-skid footwear, Hourly rounding (assess needs \\T\\ fall precautionary measures) done, Used ambulatory aids as needed (educated on \\T\\ assisted with), Used gait belt as appropriate Implemented a Fall Risk Plan of Care, Apply high fall risk patient identification: yellow non skid footwear/ fall signage. Abuse screen: Denies threats or abuse. Nutritional screening: No deficits noted. Tuberculosis screening: No symptoms or risk factors identified. Assessment: 00:00 General: Appears in no apparent distress. comfortable, Behavior is calm, cooperative, jb4 appropriate for age. Pain: Denies pain. Neuro: Level of Consciousness is alert, lethargic, Oriented to person, place, time, situation. Cardiovascular: Patient's skin is warm and dry. Respiratory: Airway is patent Respiratory effort is even, unlabored, Respiratory pattern is regular, symmetrical. GI: No signs and/or symptoms were reported involving the gastrointestinal system. : No signs and/or symptoms were reported regarding the genitourinary system. EENT: No signs and/or symptoms were reported regarding the EENT system. Derm: Skin is intact, Skin is dry, Skin is pale, Skin temperature is warm. Musculoskeletal: Circulation, motion, and sensation intact. Range of motion: intact in all extremities. 01:00 Reassessment: Patient appears in no apparent distress at this time. Patient and/or jb4 family updated on plan of care and expected duration. Pain level reassessed. Pt is resting in bed with eyes closed, respirations are even and unlabored with no s/s of pain or distress noted. 02:52 Reassessment: Patient appears in no apparent distress at this time. Patient and/or jb4 family updated on plan of care and expected duration. Pain level reassessed. Patient is alert, oriented x 3, equal unlabored respirations, skin warm/dry/pink. 03:30 Reassessment: Patient appears in no apparent distress at this time. Patient and/or jb4 family updated on plan of care and expected duration. Pain level reassessed. Patient is alert, oriented x 3, equal unlabored respirations, skin warm/dry/pink. Vital Signs: 10/26 23:30 BP 99 / 47; Pulse 73; Resp 18 S; Temp 98.7(O); Pulse Ox 89% on R/A; Weight 40.37 kg as6 (R); Height 4 ft. 11 in. (149.86 cm) (R); 10/27 01:15 BP 139 / 52; Pulse 77; Resp 19; Pulse Ox 95% on R/A; jb4 02:08 BP 146 / 53; Pulse 76; Resp 22; Temp 97.5; Pulse Ox 100% 2 lpm ; mw2 02:52 BP 132 / 69; Pulse 76; Resp 20; Pulse Ox 96% on 2 lpm NC; jb4 03:45 BP 142 / 54; Pulse 73; Resp 18; Pulse Ox 100% on 2 lpm NC; jb4 10/26 23:30 Body Mass Index 17.98 (40.37 kg, 149.86 cm) as6 ED Course: 10/26 23:16 Patient arrived in ED. jj6 23:17 Henrique Iraheta PA is PHCP. cp 23:17 Maciel Puentes MD is Attending Physician. cp 23:34 Triage completed. as6 23:35 Arm band placed on. as6 10/27 00:00 Patient has correct armband on for positive identification. Placed in gown. Bed in low jb4 position. Call light in reach. Side rails up X 1. Client placed on continuous cardiac and pulse oximetry monitoring. NIBP monitoring applied. vehicle monitor technician on. 00:08 Inserted saline lock: 22 gauge in left forearm, using aseptic technique. Blood jb4 collected. 00:08 Initial lab(s) drawn, by me, sent to lab. First set of blood cultures drawn by me. jb4 00:22 Quinton Gomez, RN is Primary Nurse. jb4 00:25 XRAY Chest (1 view) In Process Unspecified. EDMS 00:33 COVID-19/FLU A+B Sent. pf1 00:33 Lactate w/ 2H reflex if indic. Sent. pf1 00:33 Procalcitonin Sent. pf1 00:33 Basic Metabolic Panel Sent. pf1 00:33 CBC with Diff Sent. pf1 00:33 LFT's Sent. pf1 00:33 Magnesium Sent. pf1 00:33 NT PRO-BNP Sent. pf1 00:33 PT-INR Sent. pf1 00:33 Troponin HS Sent. pf1 01:05 CT Head Brain wo Cont In Process Unspecified. EDMS 02:18 initiated a transfer with Ricky Shine from [facility]. mw2 02:34 administrative approval given by Dr. Savage/patient has been accepted to [facility] mw2 to the [facility]/ Dr. Savage accepted the patient in transfer/report to be called to [phone]. 04:10 No provider procedures requiring assistance completed. Patient transferred, IV remains jb4 in place. Administered Medications: 00:25 Drug: Zofran (Ondansetron) 4 mg Route: IVP; Site: left forearm; pf1 01:00 Follow up: Response: No adverse reaction; Marked relief of symptoms jb4 00:25 Drug: NS 0.9% 250 ml Route: IV; Rate: calculated rate; Site: left forearm; pf1 01:00 Follow up: Response: No adverse reaction; IV Status: Completed infusion; IV Intake: jb4 250ml 02:16 Drug: Cefepime 1 grams Route: IVPB; Rate: 200 ml/hr; Infused Over: 30 mins; Site: left jb4 forearm; 02:45 Follow up: IV Status: Completed infusion; IV Intake: 100ml pf1 02:52 Drug: Zithromax (azithromycin) 500 mg Route: IVPB; Infused Over: 1 hrs; Site: left jb4 forearm; 03:52 Follow up: Response: No adverse reaction; IV Status: Completed infusion; IV Intake: jb4 250ml Medication: 03:45 VIS not applicable for this client. jb4 Intake: 01:00 IV: 250ml; Total: 250ml. jb4 02:45 IV: 100ml; Total: 350ml. pf1 03:52 IV: 250ml; Total: 600ml. jb4 Outcome: 02:11 ER care complete, transfer ordered by MD. granado 04:10 Transferred by ground EMS to [facility], Transfer form completed. X-rays sent jb4 w/ patient. 04:10 Condition: stable 04:10 Discharge instructions given to patient, family, Instructed on the need for transfer, Demonstrated understanding of instructions. 04:11 Patient left the ED. jb4 Signatures: Dispatcher [employer] EDMS Henrique Iraheta PA PA cp Bryson, James, RN RN jb4 Estela Koroma mw2 Joan Reneej6 Denis Nevarez RN RN as6 Barbara dasilva RN RN pf1 Corrections: (The following items were deleted from the chart) 10/26 23:42 23:30 Acuity: YOLIE 3 as6 as6
--- NOTE | 2022-10-27 02:13 | EDPHYS ---
Physician Documentation [facility] Name: Neris Nevarez Age: 77 yrs Sex: Female : 1945 Arrival Date: 10/26/2022 Time: 23:16 Bed 5 Private MD: ED Physician Maciel Puentes HPI: 10/27 00:10 This 77 yrs old Female presents to ER via Wheelchair with complaints of Low cp Back Pain, General Weakness, Other, Altered Mental Status. 00:10 The patient presents with confusion, visual hallucinations. cp 00:10 Onset: The symptoms/episode began/occurred this morning. Possible causes: unknown. cp Associated signs and symptoms: Pertinent positives: mid back pain, general weakness. Current symptoms: In the emergency department the patient's symptoms are unchanged from the initial presentation, despite home interventions. Patient's baseline: Neuro: alert and fully oriented, Motor: no deficits, Ambulation: walks without assistance, Speech: normal. 00:10 Granddaughter reports was helping patient to bathroom today when patient became cp unresponsive and started shaking all over briefly. Historical: - Allergies: 10/26 23:34 No Known Allergies; as6 - PMHx: 23:34 Cancer, Breast; Diabetes - NIDDM; DVT; Hypertensive disorder; Hypothyroidism; as6 - PSHx: 23:34 section; GALLBLADDER; mastectomy; as6 - Immunization history:: Client reports having NOT received the Covid vaccine. Flu vaccine is not up to date. - Social history:: Smoking status: Patient denies any tobacco usage or history of. ROS: 10/27 00:15 Constitutional: Positive for poor PO intake, Negative for fever. cp 00:15 Eyes: Negative for injury, pain, redness, and discharge. cp 00:15 ENT: Negative for drainage from ear(s), ear pain, sore throat, difficulty swallowing, difficulty handling secretions. 00:15 Cardiovascular: Negative for chest pain, edema. 00:15 Respiratory: Negative for cough, shortness of breath, wheezing. 00:15 Abdomen/GI: Negative for abdominal pain, vomiting, diarrhea, constipation, black/tarry stool, rectal bleeding. 00:15 Back: Positive for pain at rest, pain with movement, Negative for injury or acute deformity. 00:15 Skin: Negative for cellulitis, rash. 00:15 Neuro: Positive for altered mental status, weakness, Negative for headache. 00:15 All other systems are negative. Exam: 00:15 ECG was reviewed by the Attending Physician. cp 00:18 Constitutional: The patient appears in no acute distress, alert, awake, cp non-diaphoretic, non-toxic, well developed, frail. 00:18 Head/Face: Normocephalic, atraumatic. cp 00:18 Eyes: Periorbital structures: appear normal, Pupils: equal, round, and reactive to light and accomodation, Extraocular movements: intact throughout, Conjunctiva: normal, no exudate, no injection, Sclera: no appreciated abnormality, Lids and lashes: appear normal, bilaterally. 00:18 ENT: External ear(s): are unremarkable, Nose: is normal, Mouth: Lips: moist, Oral mucosa: moist, Posterior pharynx: Airway: no evidence of obstruction, patent, swelling, is not appreciated, erythema, is not appreciated, exudate, is not appreciated. 00:18 Neck: ROM/movement: is normal, is supple, without pain, no range of motions limitations, no meningismus, no nuchal rigidity. 00:18 Chest/axilla: Inspection: normal, Palpation: is normal, no crepitus, no tenderness. 00:18 Cardiovascular: Rate: normal, Rhythm: regular, Edema: is not appreciated, JVD: is not cp appreciated. 00:18 Respiratory: the patient does not display signs of respiratory distress, Respirations: normal, no use of accessory muscles, no retractions, labored breathing, is not present, Breath sounds: are clear throughout. 00:18 Abdomen/GI: Inspection: abdomen appears normal, Bowel sounds: active, all quadrants, Palpation: soft, in all quadrants, mild abdominal tenderness, in all quadrants. 00:18 Back: pain, that is mild, ROM is normal. 00:18 Skin: cellulitis, is not appreciated, no rash present. 00:18 Neuro: Orientation: to person, situation, Mentation: able to follow commands, slow to respond, Cerebellar function: Romberg testing is negative, Motor: moves all fours, general weakness with no focal deficits. Vital Signs: 10/26 23:30 BP 99 / 47; Pulse 73; Resp 18 S; Temp 98.7(O); Pulse Ox 89% on R/A; Weight 40.37 kg as6 (R); Height 4 ft. 11 in. (149.86 cm) (R); 10/27 01:15 BP 139 / 52; Pulse 77; Resp 19; Pulse Ox 95% on R/A; jb4 02:08 BP 146 / 53; Pulse 76; Resp 22; Temp 97.5; Pulse Ox 100% 2 lpm ; mw2 02:52 BP 132 / 69; Pulse 76; Resp 20; Pulse Ox 96% on 2 lpm NC; jb4 03:45 BP 142 / 54; Pulse 73; Resp 18; Pulse Ox 100% on 2 lpm NC; jb4 10/26 23:30 Body Mass Index 17.98 (40.37 kg, 149.86 cm) as6 MDM: 10/26 23:56 Patient medically screened. cp 10/27 01:00 Differential Diagnosis: electrolyte abnormality, intracranial bleed, pneumonia, cp seizure, sepsis, UTI, volume depletion. 02:00 Data reviewed: vital signs, nurses notes, lab test result(s), EKG, radiologic studies, cp CT scan, plain films. 02:00 Counseling: I had a detailed discussion with the patient and/or guardian regarding: the historical points, exam findings, and any diagnostic results supporting the discharge/admit diagnosis, lab results, radiology results, the need to transfer to another facility, due to request from administration. 02:40 Physician consultation: was contacted at 02:35, regarding regarding transfer, MD loy Nieves [facility] patient's condition, accepting physician will be DR Trevor Savage. 02:40 Data interpreted: monitoring analyst: rate is 76 beats/min, rhythm is regular, cp Interpretation: normal rate, normal rhythm, Pulse oximetry: on 2L(s) per nasal canula, is 100 %. Interpretation: normal. Test interpretation: by ED physician or midlevel provider: ECG, plain radiologic studies. 10/27 00:08 Order name: Basic Metabolic Panel; Complete Time: 01:00 cp 10/27 01:00 Interpretation: Normal except: NA 128; CL 95; GLUC 218; CRE 1.39; GFR 39. cp 10/27 00:08 Order name: CBC with Diff; Complete Time: 01:00 cp 10/27 01:00 Interpretation: Normal except: WBC 3.30; RBC 3.35; HGB 11.0; HCT 32.1; RDW 18.1; MPV cp 7.1; JESSE% 76.6; LYM% 14.2; BASO% 2.1; LYMA 0.5. 10/27 00:08 Order name: LFT's; Complete Time: 01:00 cp 10/27 01:01 Interpretation: Normal except: TP 8.5; ALB 2.8; GLOB 5.7; A/G 0.5. 10/27 00:08 Order name: Magnesium; Complete Time: 01:00 10/27 01:01 Interpretation: Abnormal: MG 1.5. 10/27 00:08 Order name: NT PRO-BNP; Complete Time: 01:00 10/27 01:00 Interpretation: Abnormal: NT PRO-BNP 2490. 10/27 00:08 Order name: PT-INR; Complete Time: 01:00 10/27 00:08 Order name: Troponin HS; Complete Time: 01:00 10/27 00:08 Order name: XRAY Chest (1 view) 10/27 00:08 Order name: COVID-19/FLU A+B; Complete Time: 01:42 10/27 00:08 Order name: Blood Culture Adult (2) 10/27 00:08 Order name: Lactate w/ 2H reflex if indic.; Complete Time: 01:00 10/27 00:08 Order name: Procalcitonin; Complete Time: 01:23 cp 10/27 02:33 Interpretation: Reviewed. 10/27 01:24 Order name: Urine Microscopic Only; Complete Time: 02:31 cp 10/27 02:05 Order name: Urine Dipstick-Ancillary; Complete Time: 02:31 EDMS 10/27 00:08 Order name: EKG; Complete Time: 00:09 10/27 00:08 Order name: Cardiac monitoring; Complete Time: 00:32 cp 10/27 00:08 Order name: EKG - Nurse/Tech; Complete Time: 00:32 cp 10/27 00:08 Order name: IV Saline Lock; Complete Time: 00:32 cp 10/27 00:08 Order name: Labs collected and sent; Complete Time: 00:32 cp 10/27 00:08 Order name: O2 Per Protocol; Complete Time: 00:32 cp 10/27 00:08 Order name: O2 Sat Monitoring; Complete Time: 00:32 cp 10/27 00:08 Order name: CT Head Brain wo Cont cp 10/27 01:24 Order name: Urine Dipstick-Ancillary (obtain specimen); Complete Time: 01:59 cp EC:15 Rate is 75 beats/min. Rhythm is regular. UT interval is normal. QRS interval is cp prolonged at 108 msec. QT interval is normal. T waves are Inverted in lead aVR. Interpreted by me. Reviewed by me. Administered Medications: 00:25 Drug: Zofran (Ondansetron) 4 mg Route: IVP; Site: left forearm; pf1 01:00 Follow up: Response: No adverse reaction; Marked relief of symptoms jb4 00:25 Drug: NS 0.9% 250 ml Route: IV; Rate: calculated rate; Site: left forearm; pf1 01:00 Follow up: Response: No adverse reaction; IV Status: Completed infusion; IV Intake: jb4 250ml 02:16 Drug: Cefepime 1 grams Route: IVPB; Rate: 200 ml/hr; Infused Over: 30 mins; Site: left jb4 forearm; 02:45 Follow up: IV Status: Completed infusion; IV Intake: 100ml pf1 02:52 Drug: Zithromax (azithromycin) 500 mg Route: IVPB; Infused Over: 1 hrs; Site: left jb4 forearm; 03:52 Follow up: Response: No adverse reaction; IV Status: Completed infusion; IV Intake: jb4 250ml Disposition: 04:30 Co-signature as Attending Physician, Maciel Puentes MD. rn Disposition Summary: 10/27/22 02:11 Transfer Ordered Transfer Location: Other Acute Care Facility cp Reason: Capacity cp Condition: Stable cp Problem: new cp Symptoms: have improved cp Accepting Physician: DR Trevor Savage(10/27/22 04:11) jb4 Diagnosis - Pneumonia due to other specified infectious organisms cp - Altered mental status, unspecified cp Forms: - Medication Reconciliation Form cp - SBAR form cp Signatures: Dispatcher [employer] EDMaciel Nava MD MD rn Page, Corey, PA PA cp Quinton Gomez RN RN jb4 Denis Nevarez RN RN as6 Barbara dasilva RN RN pf1 Corrections: (The following items were deleted from the chart) 02:54 02:11 Doctor cp cp 04:11 02:54 DR Trevor Savage cp jb4
[2022-10-27 02:22] LABS: Urine Bacteria None Seen /HPF (<20); Urine Mucus Slight /HPF (None Seen); Urine RBC None Seen /HPF (None Seen)
[2022-10-27 04:35] VITALS: TEMP 97.5
[2022-10-27 04:38] VITALS: BP 142/54; O2SAT 100
--- NOTE | 2022-10-27 12:59 | RAD REPORT ---
EXAM DESCRIPTION: Chest Single View CLINICAL HISTORY: 77-year-old female with weakness. TECHNIQUE: Single view, AP portable chest was obtained. COMPARISON: None. FINDINGS: Unremarkable cardiac and mediastinal silhouette. Heart size is normal. Tortuous atheroscle rotic thoracic aorta. Left basilar opacity concerning for large pleural effusion with associated compressive atelectasis ve rsus consolidation. Additionally, there is patchy opacification of the right upper lobe raising ana rn for edema, consolidation/pneumonia. Low lung volumes. No pneumothorax. The visualized bones demonstrate diffuse demineralization and de generative change. IMPRESSION: Left basilar opacity concerning for large pleural effusion with associated compressive a telectasis versus consolidation. Additionally, there is patchy opacification of the right upper lobe raising concern for edema, consolidation/pneumonia. Please correlate with patient's clinical findings and follow-up for resolution. Electronically signed by: Ashley Thomas MD 10/27/2022 12:41 AM PASTE PLANT SUPERVISOR Due to temporary technical issues with the PACS/Fluency reporting system, reports are being signed by the in house radiologists without review as a courtesy to insure prompt reporting. The interpreting radiologist is fully responsible for the content of the report.
--- NOTE | 2022-10-27 13:10 | RAD REPORT ---
EXAM DESCRIPTION: CT Head/Brain Without Contrast CLINICAL HISTORY: Mental status change, unknown cause COMPARISON: CT Head/Brain Without Contrast 02/24/2019 TECHNIQUE: Head/brain axial images acquired without contrast. Coronal and sagittal reformats created . Exam performed according to departmental dose-optimization program which includes automated exposur e control, adjustment of mA and/or kV according to patient size, and/or use of iterative reconstructi on technique. FINDINGS: No midline shift, mass effect, intracranial hemorrhage, or hydrocephalus. Unchanged possible old lacunar infarct near right internal capsule genu. Mild right posterior ethmoid sinus opacification. Mastoid air cells clear. No skull fracture or significant skull lesion. Calcified atherosclerotic intracranial internal carotid and vertebral arteries. IMPRESSION: No CT evidence of acute intracranial abnormality. Electronically signed by: Sanjeev Vieyra MD 10/27/2022 1:25 AM PLEATER HAND Due to temporary technical issues with the PACS/Fluency reporting system, reports are being signed by the in house radiologists without review as a courtesy to insure prompt reporting. The interpreting radiologist is fully responsible for the content of the report.
--- NOTE | 2022-10-27 13:38 | EKG ---
Test Date: 2022-10-27 Test Time: 00:09:58 Commodities Manager: LAURIE MEASUREMENT RESULTS: Intervals: Rate: 75 OH: 114 QRSD: 108 QT: 432 QTc: 482 [place]: P: 52 OH: 114 QRS: 85 T: 69 INTERPRETIVE STATEMENTS: Normal sinus rhythm Right bundle branch block Abnormal ECG Compared to ECG 06/11/2021 11:23:40 Right bundle-branch block now present Incomplete right bundle-branch block no longer present Electronically Signed On 10-27-22 13:37:00 FISH PROCESSOR by Pete Webber
== END 2022-10-27 04:11 ==
LOC: ER 23:15
DX: J16.8 Pneumonia due to other specified infectious organisms (principal); Z20.822 Contact with and (suspected) exposure to COVID-19; E11.9 Type 2 diabetes mellitus without complications; I10 Essential (primary) hypertension; Z85.3 Personal history of malignant neoplasm of breast
CPT/HCPCS: 93005; 87040 ×2; 85025; 80048; 36415; 83735; 85610; 80076; 83605; 84484; 84145; 83880; 0240U; 70450; 71045; J0456; J7050 ×2; J2405; J0692; 81003; 81015; 96365; 96367; 96375; 99285

== ENCOUNTER 2023-10-28 11:06 | Inpatient (IN) | payer OTHER ==
--- OUTSIDE RECORDS SUMMARY | 2023-10-28 11:11 | XMS REPORT | Clinical Summary ---
Author Name Unknown Organization [facility] Address [address] [place] [address] Care Team Providers Care Equity Trader Name Role Phone Sanjeev Mcgowan MD Primary Care Provider [phone] Thong Segura MD Unavailable Allergies No known active allergies Medications Medication Sig Dispensed Refills Start Date End Date Status aspirin 81 mg EC tablet Take 1 tablet (81 mg) by mouth daily. 0 Active atorvastatin (LIPITOR) 20 mg tablet Take 1 tablet (20 mg) by mouth daily. 0 Active carvedilol (COREG) 12.5 mg tablet Take 1 tablet (12.5 mg) by mouth twice daily. 0 Active glimepiride (AMARYL) 2 mg tablet Take 1 tablet (2 mg) by mouth twice daily. 0 Active levothyroxine (SYNTHROID, LEVOTHROID) 25 mcg tablet Take 1 tablet (25 mcg) by mouth daily. 0 Active meloxicam (MOBIC) 7.5 mg tablet 2 (two) times a day as needed. 0 2 Active diphenhydrAMINE- acetaminophen (TYLENOL PM) 25-500 mg tab Take 1 tablet by mouth nightly as needed for sleep. 0 Active prochlorperazine (Compazine) 10 mg tabletIndication s:Infiltrating duct carcinoma, 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; Right> Take 1 tablet (10 mg) by mouth every 6 (six) hours as needed for nausea or vomiting. 30 tablet 2 2 Active hydrocortisone (ANUSOL-HC) 2.5% rectal creamIndications :Other hemorrhoid Apply around the anus 4 (four) times a day as needed for hemorrhoids. 30 g 0 3 Active lidocaine (LIDODERM) 5% (700 mg/patch) transdermal patchIndications :Pain due to neoplastic disease Place 1 patch on the skin daily. Remove & Discard patch within 12 hours or as directed by MD. Remove old patch(es) before replacing new patch(es). 30 patch 0 3 Active pantoprazole (Protonix) 40 mg EC tabletIndication s:Right upper quadrant pain Take 1 tablet (40 mg) by mouth every morning before breakfast. 30 tablet 1 3 Active sucralfate (Carafate) 1 g tabletIndication s:Right upper quadrant pain Take 1 tablet (1,000 mg) by mouth 4 (four) times a day. 56 tablet 0 3 Active hyoscyamine (Levsin/SL) 0.125 mg SL tabletIndication s:Right upper quadrant pain Place 1 tablet (0.125 mg) under the tongue every 8 (eight) hours as needed for cramping. 20 tablet 0 3 Active senna-docusate (Senna Plus) 8.6 mg-50 mg tabletIndication s:Right upper quadrant pain Take 1 tablet by mouth twice daily. 60 tablet 0 3 Active letrozole (FEMARA) 2.5 mg tabletIndication s:Infiltrating duct carcinoma, 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; Right> Take 1 tablet (2.5 mg) by mouth daily. 90 tablet 1 3 Active HYDROcodone-acet aminophen ([place]) 5 mg-325 mg per tabletIndication s:Infiltrating duct carcinoma, 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; Right> Take 1 tablet by mouth every 4 (four) hours as needed for moderate pain. 60 tablet 0 3 Active morphine (MS Contin) 15 mg ER tabletIndication s:Infiltrating duct carcinoma, 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; Right> Take 1 tablet (15 mg) by mouth every 12 (twelve) hours. 60 tablet 0 3 Active traMADol (ULTRAM) 50 mg tabletIndication s:Infiltrating duct carcinoma, 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; Right> Take 1 tablet (50 mg) by mouth every 8 (eight) hours as needed for moderate pain. 30 tablet 1 3 Active clopidogrel (PLAVIX) 75 mg tablet Take 1 tablet (75 mg) by mouth daily. 0 11/08/19 23 Discontinued(Sto p Taking at Discharge) gabapentin (NEURONTIN) 300 mg capsule Take 1 capsule (300 mg) by mouth every 4 (four) hours as needed. 0 2 11/08/19 23 Discontinued(Sto p Taking at Discharge) ribociclib ([place]) 400 mg/day (200 mg x 2) tabletIndication s:Infiltrating duct carcinoma, 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; Right> Take 2 tablets (400 mg) by mouth daily. Every morning for 21 days followed by 7 days off. Repeat every 28 days. 42 tablet 1 2 03/02/20 23 Discontinued HYDROcodone-acet aminophen ([place]) 5 mg-325 mg per tabletIndication s:Chronic pain due to malignant neoplastic disease Take 1 tablet by mouth every 4 (four) hours as needed for moderate pain. 60 tablet 0 2 07/19/20 23 Discontinued letrozole (FEMARA) 2.5 mg tabletIndication s:Infiltrating duct carcinoma, 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; Right> TAKE 1 TABLET BY MOUTH EVERY DAY 28 tablet 1 2 01/02/20 23 Discontinued(Reo rder) losartan (COZAAR) 25 mg tablet Take 1 tablet (25 mg) by mouth daily. 0 2 11/08/19 23 Discontinued(Sto p Taking at Discharge) traMADol (ULTRAM) 50 mg tablet Take 1 tablet (50 mg) by mouth every 6 (six) hours as needed for severe pain or moderate pain. 0 05/05/20 23 Discontinued(Reo rder) gabapentin (NEURONTIN) 100 mg capsuleIndicatio ns:Pain due to neoplastic disease Take 2 capsules (200 mg) by mouth twice daily for 90 days. 360 capsule 1 3 02/07/20 23 losartan (COZAAR) 50 mg tabletIndication s:Hypertension Take 1 tablet (50 mg) by mouth daily for 90 days. 90 tablet 1 3 02/08/20 23 OLANZapine (ZyPREXA) 2.5 mg tabletIndication s:Other mixed anxiety disorder Take 1 tablet (2.5 mg) by mouth every 6 (six) hours as needed for anxiety (anixety or insomnia) for up to 30 days. 60 tablet 1 3 12/08/19 23 amLODIPine (NORVASC) 10 mg tabletIndication s:Hypertension Take 1 tablet (10 mg) by mouth daily for 90 days. 90 tablet 1 3 02/08/20 23 letrozole (FEMARA) 2.5 mg tabletIndication s:Infiltrating duct carcinoma, 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; Right> TAKE 1 TABLET BY MOUTH EVERY DAY 90 tablet 1 3 06/21/20 23 Discontinued traMADol (ULTRAM) 50 mg tabletIndication s:Infiltrating duct carcinoma, 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; Right> Take 1 tablet (50 mg) by mouth every 6 (six) hours as needed for severe pain or moderate pain. 30 tablet 2 3 07/19/20 23 Discontinued letrozole (FEMARA) 2.5 mg tabletIndication s:Infiltrating duct carcinoma, 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; Right> TAKE 1 TABLET BY MOUTH EVERY DAY 90 tablet 1 3 07/02/20 23 Discontinued(Reo rder) morphine (MS Contin) 15 mg ER tabletIndication s:Infiltrating duct carcinoma, 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; Right> Take 1 tablet (15 mg) by mouth every 12 (twelve) hours. 60 tablet 0 3 07/22/20 23 Discontinued(Reo rder) Active Problems Problem Noted Date Diagnosed Date Altered mental status 10/31/2022 Pain due to neoplastic disease 10/29/2022 Infiltrating duct carcinoma, 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; Right> 08/28/2022 Cancer Staging:Clinical stage from 06/01/2022:Stage IV(pM1, ER+, MT-, HER2-) - Signed by Sanjeev Mcgowan MD on 09/03/2022 Last Assessment & Plan: Mrs. Nevarez is a 77 y.o. 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 She is currently on letrozole. Hypoxia Bilateral pneumonia Leukopenia Anemia in neoplastic disease Pleural effusion Last Assessment & Plan: Patient with exudative left-sided pleural effusion s/p pigtail placement and subsequent removal on 11/03/22. Imaging today shows stable small left effusion and improving opacities. As patient's effusions have remained stable to slightly improved since removal of left pigtail catheter, we will place patient in pending at this time. Patient is aware to contact our clinic if any new or worsening respiratory symptoms occur. 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 Nevarez is a 77 y.o. 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 She is currently on letrozole. All oncologic management will be deferred to her primary team. Advance care planning Resolved Problems Problem Noted Date Diagnosed Date Resolved Date Dysphonia 11/27/2022 05/06/2023 Last Assessment & Plan: Patient with improvement in her voice tone that self-resolved. Voice evaluation was unremarkable and it was found she had longstanding LEFT vocal fold paralysis with excellent compensation and glottic closure. Encounters Date Type Department Care Team Description 10/18/2023 Orders Only Cardiop[facility] Center - Pulmonology Medicine [address] [facility] Main [address], 6th [place] [address] Yancy Roberson MD Chronic cough (Primary Dx) 10/04/2023 6:15 AM BOILER OPERATORS SUPERVISOR Ancillary Procedure [facility] [address] [facility] 2nd [place] [address] Yvette De La Torre P, HOME AGENT Infiltrating duct carcinoma, 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; Right> 10/04/2023 Travel 09/10/[address] Imaging [address] [facility], 7th [place] [address] Micki Wilde MD 09/10/2023 Orders Only MD Ezequiel Wilson [address] [place] [address] Yvette De La Torre, HOME AGENT Infiltrating duct carcinoma, 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; 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) 07/27/2023 9:20 AM CDT Telemedicine MD [place]ieves [place] - Breast Medical Oncology [address] [place] [address], [place] [address] Sanjeev Mcgowan MD Infiltrating duct carcinoma, 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; 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) 07/23/2023 Orders Only MD Ezequiel Wilson [address] [place] [address] Yvette De La Torre, HOME AGENT Infiltrating duct carcinoma, 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; 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) 07/22/2023 Orders Only MD Ezequiel [place] - Breast Medical Oncology [address] [place] [address], [place] [address] Sanjeev Mcgowan MD Infiltrating duct carcinoma, 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; Right> 07/22/2023 Orders Only MD Ezequiel Wilson [address] [place] [address] Yvette De La Torre, HOME AGENT 07/19/2023 10:30 AM CDT Infusion MD Ezequiel [place] - Infusion [address] [place] [address], [place] [address] Yvette De La Torre, HOME AGENT Infiltrating duct carcinoma, 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; Right> 07/19/2023 10:00 AM CDT Follow-Up MD Ezequiel Wilson [facility] Breast Medical Oncology [address] [place] [address], [place] [address] Sanjeev Mcgowan MD Infiltrating duct carcinoma, 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; 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) 07/19/2023 6:25 AM CDT Ancillary Procedure MD Ezequiel [place] [address] [place] [address] [address] [place] [address] Yvette De La Torre P, HOME AGENT Infiltrating duct carcinoma, 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; Right> 07/19/2023 Orders Only MD Ezequiel Wilson [address] [place] [address] PotYvette zarate P, HOME AGENT 07/19/2023 Travel 07/06/2023 Orders Only [address] [place] [address] Potter, Yvette P, HOME AGENT Infiltrating duct carcinoma, 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; Right> 07/02/2023 Orders Only [address] [place] [address] Wil, Yvette P, HOME AGENT Infiltrating duct carcinoma, 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; Right> 06/25/2023 Orders Only [place] [place] [place] [address] Yvette De La Torre P, HOME AGENT 06/20/2023 Refill [facility] - Breast Medical Oncology [address] [place] [address] Wil, Yvette P, HOME AGENT Infiltrating duct carcinoma, 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; Right> 05/31/2023 Telephone [facility] - Medical Oncology [facility], 7th [place] [address] Kate Yip MA 05/05/2023 2:00 PM CDT Follow-Up Cardiopulmonary Center - Pulmonology Medicine [facility], 6th [place] [address] Aakash Don, HOME AGENT Infiltrating duct carcinoma, 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; 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); Pleural effusion; Dysphonia 05/05/2023 1:30 PM CDT Ancillary Procedure Diagnostic [facility], 2nd [place] [address] Aakash Don, HOME AGENT Pleural effusion 05/05/2023 Orders Only MD Ezequiel Kwan[address] [address] Yvette De La Torre P, HOME AGENT Infiltrating duct carcinoma, 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; 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) 05/05/2023 Travel 04/20/2023 Orders Only MD Ezequiel Wilson [address] [address] Yvette De La Torre P, HOME AGENT Infiltrating duct carcinoma, 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; 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) 04/15/2023 8:12 PM CDT - 04/16/2023 12:12 AM CDT [facility] [address] [place] [address], 1st Floor near The [place] [id number] Benito Hooper MD Right upper quadrant pain (Primary Dx); Infiltrating duct carcinoma, 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; Right>; Metastatic malignant neoplasm to bone; Secondary malignant neoplasm of liver and intrahepatic bile duct; Chronic lung disease Discharge Disposition: Home 04/15/2023 Travel 04/07/2023 Nurse Triage [facility] PHYSICIAN [address] [place] [address] Son Albright RN 03/02/2023 1:00 PM CDT Telemedicine MD [facility] [place] - Breast Medical Oncology [address] [place] [address] Sanjeev Mcgowan MD Infiltrating duct carcinoma, 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; 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) 02/04/2023 12:45 PM CDT - 02/04/2023 11:59 PM CDT Hospital Encounter [facility] - Speech Pathology [address] [place] [address], 10th [place] [address] Aakash Don, Zaynab Childers, PhD Dysphonia Discharge Disposition: Home 02/04/2023 Travel 02/02/2023 1:30 PM CDT Follow-Up Cardiop[facility] - Pulmonology Medicine [facility] Main [address], 6th [place] [address] Aakash Don APRN Infiltrating duct carcinoma, 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; 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); Pleural effusion; Dysphonia 02/02/2023 12:15 PM CDT Ancillary Procedure Diagnostic [facility] [address] [facility], 2nd [place] [address] Aakash Don, HOME AGENT Pleural effusion 02/02/2023 Travel 01/28/2023 2:30 PM CDT Infusion MD Ezequiel [place] - Infusion [address] [place] [address] Yvette De La Torre, MACK Infiltrating duct carcinoma, 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; 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) 01/28/2023 Travel 01/21/2023 12:58 PM CDT - 01/21/2023 11:59 PM CDT Hospital Encounter [facility] - Surgical Oncology [address] [place] [address] Main [facility], 10th Floor, [place] [address] Thong Segura MD Dysphonia (Primary Dx); Paralysis of vocal cords and larynx, unspecified Discharge Disposition: Home 01/21/2023 Orders Only [facility] - Surgical Oncology [facility] Main dg, 10th Floor, [place] [address] Santos Lewis APRN Paralysis of vocal cords and larynx, unspecified (Primary Dx) 01/21/2023 Travel 01/14/2023 Orders Only MD Ezequiel [place] - Breast Medical Oncology [address] [place] [address] Yvette De La Torre APRN 01/04/2023 1:00 PM BOILER [employer]PERAT[employer] SUPERVISOR Telemedicine [facility] - Pulmonology Medicine [address] [facility] [address], 6th [place] [address] Aakash Don APRN Infiltrating ductal carcinoma of breast, stage 4 <Female> (Primary Dx); Pleural effusion; Dysphonia 01/04/2023 8:00 AM BOILER OPERAT[employer] SUPERVISOR Ancillary Procedure [facility] [address] [place] [address], 2nd [place] [address] Aakash Don Y, HOME AGENT Pleural effusion 01/04/2023 Orders Only [facility] - Pulmonology Medicine [address] [place] [address], 6th [place] [address] Aakash Don Y, HOME AGENT Dysphonia (Primary Dx) 01/04/2023 Travel 01/01/2023 Orders Only MD Nieves [facility] Breast Medical Oncology [address] [place] [address] Yvette De La Torre, HOME AGENT Infiltrating duct carcinoma, 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; Right> 12/31/2022 Mobile Encounter Cardiopulmonary [place] - Pulmonology Medicine [address] [place] [address], 6th [place] [address] Aakash Don Y, HOME AGENT 12/25/2022 Orders Only MD Nieves [facility] Breast Medical Oncology [address] [place] [address] Yvette De La Torre, HOME AGENT Infiltrating duct carcinoma, 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; 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) 12/09/2022 9:00 AM BOILER OPERATORS SUPERVISOR Ancillary Procedure [facility] [address] [place] [address], 2nd [place] [address] Aakash Don, HOME AGENT Pleural effusion 12/09/2022 Travel 12/04/2022 Orders Only Cardiopulmonary [facility] Pulmonology Medicine [address] [place] [address], 6th [place] [address] Aakash Don, HOME AGENT Pleural effusion (Primary Dx) 11/26/2022 10:20 AM BOILER OPERAT[employer] SUPERVISOR Telemedicine [facility] Breast Medical Oncology [address] [place] [address] Sanjeev Mcgowan MD Infiltrating duct carcinoma, 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; 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) 11/26/2022 Orders Only MD Ezequiel [place] - Breast Medical Oncology [address] [place] [address] Yvette De La Torre P, HOME AGENT Infiltrating duct carcinoma, 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; 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) 11/24/2022 10:30 AM BOIL[employer]PERAT[employer] SUPERVISOR Follow-Up Card[facility] Center - Pulmonology Medicine [address] [facility] [address], 6th [place] [address] Aakash Don, HOME AGENT Infiltrating ductal carcinoma of breast, stage 4 <Female> (Primary Dx); Pleural effusion; Dysphonia; Malignant pleural effusion 11/24/2022 9:15 AM BOILER OPERATORS SUPERVISOR - 11/24/2022 11:59 PM BOILER [employer]PERAT[employer] SUPERVISOR Hospital Encounter Diagnostic Imaging Center [facility] Main Bldg, 3rd [place] [address] Yancy Roberson MD Pleural effusion Discharge Disposition: Home 11/24/2022 Travel 11/09/2022 Orders Only MD Ezequiel [place] - Breast Medical Oncology [address] [place] [address] Yvette De La Torre, HOME AGENT Infiltrating duct carcinoma, 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; 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) 11/06/2022 8:05 PM BOILER [employer]PERAT[employer] SUPERVISOR Ancillary Procedure [facility] [address] [place] [address] Sanjeev Mcgowan MD 11/06/2022 8:00 PM [employer]IL[employer] SUPERVISOR Ancillary Procedure [facility] [address] [place] [address] Sanjeev Mcgowan MD 11/04/2022 Orders Only Cardiop[facility] Center - Pulmonology Medicine [address] [facility] [address], 6th [place] [address] Citlali Cortes APRN Pleural effusion (Primary Dx) 11/03/2022 Prep for Surgery Card[facility] Center - Pulmonology Procedures [address] [facility] [address], 6th [place] [address] Joey Lizarraga MD Pleural effusion (Primary Dx) 10/30/2022 Orders Only MD Nieves [place] - Breast Medical Oncology [address] [place] [address] Yvette De La Torre, HOME AGENT 10/27/2022 5:01 AM BOILER OPERATORS SUPERVISOR - 11/08/2022 6:02 PM BOILER [employer]PERAT[employer] SUPERVISOR Hospital Encounter [facility] [address] [place] [address] Dina Fiore MD Lamie, Peter, DO Dickson, Kodwo, MD Pneumonia (Primary Dx); Hypoxia; Breast cancer; Altered mental status; Acute respiratory failure with hypoxia; Pleural effusion; Bilateral pneumonia; Cancer; Secondary malignant neoplasm of pleura; Pain due to neoplastic disease; Hypertension; Other mixed anxiety disorder; Other hemorrhoid Discharge Disposition: Home after 10/28/2022 Surgical History Surgery Date Site/Laterality Comments MASTECTOMY 1999 CHOLECYSTECTOMY unk Medical History Medical History Date Comments Hypertension unk Hyperlipidemia unk 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 Difficulty talking September 2021 Lung nodule June 22 Disorder of thyroid gland unk Diabetes mellitus unk Malignant tumor of breast 1998 Family History Medical History Relation Name Comments -Other cancer Daughter Lyssa Ruiz cervical c ancer Hysterectomy at age 34 Cervical cancer Daughter Lyssa Ruiz Colon cancer Father Austin Baumann Stomach cancer Sister Edwige Baumann Relation Name Status Comments Daughter Lyssa Ruiz Alive Father Austin Baumann Sister Edwige Baumann Social History Tobacco Use Types Packs/Day Years Used Date Smoking Tobacco: Never Smokeless Tobacco: Never Tobacco Cessation:Counseling Given: Not Answered Alcohol Use Standard Drinks/Week Comments Yes 3 (1 standard drink = 0.6 oz pure alcohol) social drinker just ever so often Sex and Gender Information Value Date Recorded Sex Assigned at Not on file Gender Identity Not on file Sexual Orientation Not on file Job Start Date Occupation Industry Not on file Not on file Not on file Obstetrics History Para Term AB IAB SAB Ectopic Multiple Livin g Live Births 3 2 3 Date Outcome GA Total Labor Labor/2nd/3rd Weight Sex Delivery Anes PTL Evelin A1 A5 Name Cl in Comments Menarche: 15 LMP: year 1999 Last PAP: 2 years wnl Periods: Regular Parity: G3 one baby passed at 4 mo from spinal bif HRT: none OCP: 1 year Menopause:Natural stopped her cycle with chemo breast ca around 1999 Fertility Tx: none Breastfeed: none Last Filed Vital Signs Vital Sign Reading Time Taken Comments Blood Pressure 174/91 07/19/2023 9:08 AM CDT Pulse 71 07/19/2023 9:08 AM CDT Temperature 36.6 C (97.9 F) 07/19/2023 9:08 AM CD T Respiratory Rate 16 07/19/2023 9:08 AM CDT Oxygen Saturation 96% 07/19/2023 9:08 AM CDT Inhaled Oxygen Concentration - - Weight 51.3 kg (113 lb 1.5 oz) 10/04/2023 5:00 A M [employer]PER[employer] Height 149.9 cm (4' 11.02") 10/29/2022 10:00 AM [employer]PER[employer] SUPERVISOR Body Mass Index 22.83 10/29/2022 10:00 AM [employer]ER [employer]PERAT[employer] SUPERVISOR Plan of Treatment Upcoming Encounters Date Type Department Care Team Description 11/09/2023 10:20 AM BO[employer]PER[employer] SUPERVISOR Telemedicine [facility] - Breast Medical Oncology [address] [place] [address] Sanjeev Mcgowan MD [address] [place] [address] 11/18/2023 8:15 AM BOILER [employer]PERAT[employer] SUPERVISOR Ancillary Procedure X-Ray Outpatient Center [address] [facility], 7th [place] [address] Yancy Roberson MD [address] [place] [address] 11/18/2023 9:30 AM BOILER [employer]PERAT[employer] SUPERVISOR Follow-Up Cardiopulmonary Center - Pulmonology Medicine [address] [place] [address], 6th [place] [address] Yancy Roberson MD [facility] [place] [address] Health Maintenance Due Date Last Done Comments COVID-19 Vaccination (#1) 1950 Procedures Procedure Name Priority Date/Time Associated Diagnosis Comments MRI BRAIN W WO CONTRAST Routine 10/04/20 7:51 AM BOIL[employer] SUPERVISOR Infiltrating duct carcinoma, 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; Right> CT CHEST ABDOMEN PELVIS W CONTRAST Routine 07/19/2023 8:57 AM CDT Infiltrating duct carcinoma, 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; Right> FRACTIONATED BILIRUBIN Routine 6:28 AM CDT Infiltrating duct carcinoma, 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; Right> TOTAL PROTEIN Routine 07/19/2023 6:28 AM CDT Infiltrating duct carcinoma, 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; Right> ASPARTATE AMINOTRANSFERASE Routine 07/19/2023 6:28 AM CDT Infiltrating duct carcinoma, 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; Right> ALANINE AMINOTRANSFERASE Routine 023 6:28 AM CDT Infiltrating duct carcinoma, 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; Right> ALKALINE PHOSPHATASE Routine 07/19/2023 6:28 AM CDT Infiltrating duct carcinoma, 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; Right> ALBUMIN LEVEL Routine 07/19/2023 6:28 AM CDT Infiltrating duct carcinoma, 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; Right> CALCIUM LEVEL Routine 07/19/2023 6:28 AM CDT Infiltrating duct carcinoma, 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; Right> .GLOMERULAR FILTRATION RATE Routine 07/19/2023 6:28 AM CDT Infiltrating duct carcinoma, 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; Right> SERUM CREATININE Routine 07/19/2023 6:28 AM CDT Infiltrating duct carcinoma, 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; Right> ELECTROLYTE PANEL Routine 07/19/2023 6:2 8 AM CDT Infiltrating duct carcinoma, 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; Right> BLOOD UREA NITROGEN Routine 07/19/2023 6 :28 AM CDT Infiltrating duct carcinoma, 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; Right> GLUCOSE LEVEL Routine 07/19/2023 6:28 AM CDT Infiltrating duct carcinoma, 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; Right> DIFFERENTIAL Routine 07/19/2023 6:28 AM CDT Infiltrating duct carcinoma, 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; Right> .CBC Routine 07/19/2023 6:28 AM CDT Infiltrating duct carcinoma, 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; Right> COMPREHENSIVE METABOLIC PANEL Routine 07/19/2023 6:28 AM CDT Infiltrating duct carcinoma, 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; Right> COMPLETE BLOOD COUNT W/ DIFFERENTIAL Routine 07/19/2023 6:28 AM CDT Infiltrating duct carcinoma, 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; Right> XR CHEST 2 VW Routine 05/05/2023 1:20 PM CDT Pleural effusion CT CHEST PULMONARY EMBOLISM W CONTRAST Routine 04/15/2023 11:[address] ABDOMEN PELVIS W CONTRAST Routine 04/15/2023 11:12 PM CDT XR CHEST 1 VW Routine 04/15/2023 9:04 PM CDT XR ABDOMEN AP Routine 04/15/2023 9:04 PM CDT POC VENOUS BLOOD GAS + LACTATE Routine 04/15/2023 8:40 PM CDT TMP INTERPRETATION ANTIBODY SCREEN NEGATIVE STAT 04/15/2023 6:07 PM CDT CLOT EXPIRATION DATE STAT 04/15/2023 6:07 PM CDT DIFFERENTIAL STAT 04/15/2023 6:07 PM CDT .CBC STAT 04/15/2023 6:07 PM CDT FRACTIONATED BILIRUBIN Routine 6:07 PM CDT TOTAL PROTEIN Routine 04/15/2023 6:07 PM CDT ASPARTATE AMINOTRANSFERASE Routine 04/15/2023 6:07 PM CDT ALANINE AMINOTRANSFERASE Routine 023 6:07 PM CDT ALKALINE PHOSPHATASE Routine 04/15/2023 6:07 PM CDT ALBUMIN LEVEL Routine 04/15/2023 6:07 PM CDT CALCIUM LEVEL Routine 04/15/2023 6:07 PM CDT .GLOMERULAR FILTRATION RATE Routine 04/15/2023 6:07 PM CDT SERUM CREATININE Routine 04/15/2023 6:07 PM CDT ELECTROLYTE PANEL Routine 04/15/2023 6:0 7 PM CDT BLOOD UREA NITROGEN Routine 04/15/2023 6 :07 PM CDT GLUCOSE LEVEL Routine 04/15/2023 6:07 PM CDT ANTIBODY SCREEN STAT 04/15/2023 6:07 PM CDT ABORH STAT 04/15/2023 6:07 PM CDT TYPE AND SCREEN STAT 04/15/2023 6:07 PM CDT APTT Routine 04/15/2023 6:07 PM CDT PROTHROMBIN TIME Routine 04/15/2023 6:07 PM CDT COMPLETE BLOOD COUNT W/ DIFFERENTIAL Routine 04/15/2023 6:07 PM CDT PHOSPHORUS LEVEL Routine 04/15/2023 6:07 PM CDT MAGNESIUM LEVEL Routine 04/15/2023 6:07 PM CDT LACTATE DEHYDROGENASE Routine 04/15/2023 6:07 PM CDT COMPREHENSIVE METABOLIC PANEL Routine 04/15/2023 6:07 PM CDT F[employer]OR WORKER [employer] VIDEOSTROBOSCOPY Routine 02/04/2023 1:29 PM CDT Dysphonia XR CHEST 2 VW Routine 02/02/2023 12:01 PM CDT Pleural effusion .GLOMERULAR FILTRATION RATE Routine 01/28/2023 1:30 PM CDT Infiltrating duct carcinoma, 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; Right> SERUM CREATININE Routine 01/28/2023 1:30 PM CDT Infiltrating duct carcinoma, 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; Right> CREATININE Routine 01/28/2023 1:30 PM CDT Infiltrating duct carcinoma, 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; Right> CALCIUM LEVEL Routine 01/28/2023 1:30 PM CDT Infiltrating duct carcinoma, 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; Right> XR CHEST 2 VW Routine 01/04/2023 9:15 AM BOILER OPERATORS SUPERVISOR Pleural effusion XR CHEST 2 VW Routine 12/09/2022 9:57 AM BOILER [employer]PERATORS SUPERVISOR Pleural effusion XR CHEST 2 VW Routine 11/24/2022 10:02 AM [employer]ILER [employer]PERAT[employer] SUPERVISOR Pleural effusion POC GLUCOSE SCREEN Routine 11/08/2022 12 :19 PM [employer]ILER [employer]PERATORS SUPERVISOR POC GLUCOSE SCREEN Routine 11/08/2022 9: 29 AM [employer]ILER [employer]PERATORS SUPERVISOR FRACTIONATED BILIRUBIN AM 6:26 AM BOILER OPERATORS SUPERVISOR TOTAL PROTEIN AM 11/08/2022 6:26 AM BOILER OPERATORS SUPERVISOR ASPARTATE AMINOTRANSFERASE AM 11/08/2022 6:26 AM BOILER [employer]PERATORS SUPERVISOR ALANINE AMINOTRANSFERASE AM 023 6:26 AM BOILER OPERATORS SUPERVISOR ALKALINE PHOSPHATASE AM 11/08/2022 6:26 AM BOILER OPERATORS SUPERVISOR ALBUMIN LEVEL AM 11/08/2022 6:26 AM BOILER OPERATORS SUPERVISOR CALCIUM LEVEL AM 11/08/2022 6:26 AM BOILER OPERATORS SUPERVISOR .GLOMERULAR FILTRATION RATE AM 11/08/2022 6:26 AM BOILER OPERATORS SUPERVISOR SERUM CREATININE AM 11/08/2022 6:26 AM BOILER OPERATORS SUPERVISOR ELECTROLYTE PANEL AM 11/08/2022 6:2 6 AM BOILER OPERATORS SUPERVISOR BLOOD UREA NITROGEN AM 11/08/2022 6 :26 AM BOILER OPERATORS SUPERVISOR GLUCOSE LEVEL AM 11/08/2022 6:26 AM BOILER OPERATORS SUPERVISOR DIFFERENTIAL AM 11/08/2022 6:26 AM BOILER OPERATORS SUPERVISOR .CBC AM 11/08/2022 6:26 AM BOILER OPERATORS SUPERVISOR COMPREHENSIVE METABOLIC PANEL AM 11/08/2022 6:26 AM BOILER OPERATORS SUPERVISOR APTT AM 11/08/2022 6:26 AM BOILER OPERATORS SUPERVISOR PROTHROMBIN TIME AM 11/08/2022 6:26 AM BOILER OPERATORS SUPERVISOR PHOSPHORUS LEVEL AM 11/08/2022 6:26 AM BOILER OPERATORS SUPERVISOR MAGNESIUM LEVEL AM 11/08/2022 6:26 AM BOILER [employer]PERATORS SUPERVISOR COMPLETE BLOOD COUNT W/ DIFFERENTIAL AM 11/08/2022 6:26 AM BOILER [employer]PERATORS SUPERVISOR POC GLUCOSE SCREEN Routine 11/08/2022 5: 26 AM [employer]ILER [employer]PERATORS SUPERVISOR POC GLUCOSE SCREEN Routine 11/07/2022 11 :10 PM [employer]ILER [employer]PERATORS SUPERVISOR POC GLUCOSE SCREEN Routine 11/07/2022 6: 11 PM [employer]PERAT[employer] SUPERVISOR OSCILLATORY PEP Routine 11/07/2022 2:00 PM [employer]PERATORS SUPERVISOR POC GLUCOSE SCREEN Routine 11/07/2022 12 :16 PM [employer]AT[employer] SUPERVISOR OSCILLATORY PEP Routine 11/07/2022 8:00 AM BOILER [employer]PERATORS SUPERVISOR TMP INTERPRETATION ANTIBODY SCREEN NEGATIVE Routine 11/07/2022 6:25 AM [employer]PERATORS SUPERVISOR CLOT EXPIRATION DATE Routine 11/07/2022 6:25 AM [employer]PERATORS SUPERVISOR FRACTIONATED BILIRUBIN AM 6:25 AM BOILER [employer]PERATORS SUPERVISOR TOTAL PROTEIN AM 11/07/2022 6:25 AM BOILER OPERATORS SUPERVISOR ASPARTATE AMINOTRANSFERASE AM 11/07/2022 6:25 AM BOILER OPERATORS SUPERVISOR ALANINE AMINOTRANSFERASE AM 6:25 AM BOILER [employer]PERATORS SUPERVISOR ALKALINE PHOSPHATASE AM 11/07/2022 6:25 AM BOILER OPERATORS SUPERVISOR ALBUMIN LEVEL AM 11/07/2022 6:25 AM BOILER OPERATORS SUPERVISOR CALCIUM LEVEL AM 11/07/2022 6:25 AM BOILER OPERATORS SUPERVISOR .GLOMERULAR FILTRATION RATE AM 11/07/2022 6:25 AM BOILER [employer]PERATORS SUPERVISOR SERUM CREATININE AM 11/07/2022 6:25 AM BOILER OPERATORS SUPERVISOR ELECTROLYTE PANEL AM 11/07/2022 6:2 5 AM BOILER OPERATORS SUPERVISOR BLOOD UREA NITROGEN AM 11/07/2022 6 :25 AM BOILER OPERATORS SUPERVISOR GLUCOSE LEVEL AM 11/07/2022 6:25 AM BOILER [employer]PERATORS SUPERVISOR DIFFERENTIAL AM 11/07/2022 6:25 AM BOILER [employer]PERATORS SUPERVISOR .CBC AM 11/07/2022 6:25 AM BOILER [employer]PERATORS SUPERVISOR ANTIBODY SCREEN Routine 11/07/2022 6:25 AM BOILER [employer]PERATORS SUPERVISOR ABORH Routine 11/07/2022 6:25 AM BOILER OPERATORS SUPERVISOR COMPREHENSIVE METABOLIC PANEL AM 11/07/2022 6:25 AM [employer]ILER [employer]PERATORS SUPERVISOR TYPE AND SCREEN Routine 11/07/2022 6:25 AM BOILER [employer]PERATORS SUPERVISOR APTT AM 11/07/2022 6:25 AM BOILER OPERATORS SUPERVISOR PROTHROMBIN TIME AM 11/07/2022 6:25 AM BOILER OPERATORS SUPERVISOR PHOSPHORUS LEVEL AM 11/07/2022 6:25 AM BOILER OPERATORS SUPERVISOR MAGNESIUM LEVEL AM 11/07/2022 6:25 AM BOILER OPERATORS SUPERVISOR COMPLETE BLOOD COUNT W/ DIFFERENTIAL AM 11/07/2022 6:25 AM BOILER OPERATORS SUPERVISOR POC GLUCOSE SCREEN Routine 11/07/2022 5: 30 AM [employer]PERAT[employer] SUPERVISOR OSCILLATORY PEP Routine 11/07/2022 2:00 AM [employer]PERATORS SUPERVISOR POC GLUCOSE SCREEN Routine 11/06/2022 11 :48 PM BOILER [employer]PERATORS SUPERVISOR POC GLUCOSE SCREEN Routine 11/06/2022 6: 25 PM [employer]ER [employer]ATORS SUPERVISOR OSCILLATORY PEP Routine 11/06/2022 2:00 PM BOILER OPERATORS SUPERVISOR POC GLUCOSE SCREEN Routine 11/06/2022 12 :49 PM [employer]ILER [employer]ATORS SUPERVISOR OSCILLATORY PEP Routine 11/06/2022 8:00 AM BO[employer]PERATORS SUPERVISOR FRACTIONATED BILIRUBIN AM 5:39 AM BOILER [employer]PERATORS SUPERVISOR TOTAL PROTEIN AM 11/06/2022 5:39 AM BOILER [employer]PERATORS SUPERVISOR ASPARTATE AMINOTRANSFERASE AM 11/06/2022 5:39 AM BOILER [employer]PERATORS SUPERVISOR ALANINE AMINOTRANSFERASE AM 023 5:39 AM BOILER [employer]PERATORS SUPERVISOR ALKALINE PHOSPHATASE AM 11/06/2022 5:39 AM BOILER OPERATORS SUPERVISOR ALBUMIN LEVEL AM 11/06/2022 5:39 AM BOILER OPERATORS SUPERVISOR CALCIUM LEVEL AM 11/06/2022 5:39 AM BOILER OPERATORS SUPERVISOR .GLOMERULAR FILTRATION RATE AM 11/06/2022 5:39 AM BOILER [employer]PERATORS SUPERVISOR SERUM CREATININE AM 11/06/2022 5:39 AM BOILER OPERATORS SUPERVISOR ELECTROLYTE PANEL AM 11/06/2022 5:3 9 AM BOILER OPERATORS SUPERVISOR BLOOD UREA NITROGEN AM 11/06/2022 5 :39 AM BOILER OPERATORS SUPERVISOR GLUCOSE LEVEL AM 11/06/2022 5:39 AM BO[employer]ER [employer]PERATORS SUPERVISOR DIFFERENTIAL AM 11/06/2022 5:39 AM BOILER [employer]PERATORS SUPERVISOR .CBC AM 11/06/2022 5:39 AM BOILER OPERATORS SUPERVISOR COMPREHENSIVE METABOLIC PANEL AM 11/06/2022 5:39 AM [employer]ER [employer]PERATORS SUPERVISOR APTT AM 11/06/2022 5:39 AM BOILER OPERATORS SUPERVISOR PROTHROMBIN TIME AM 11/06/2022 5:39 AM BOILER OPERATORS SUPERVISOR PHOSPHORUS LEVEL AM 11/06/2022 5:39 AM BOILER OPERATORS SUPERVISOR MAGNESIUM LEVEL AM 11/06/2022 5:39 AM BOILER OPERATORS SUPERVISOR COMPLETE BLOOD COUNT W/ DIFFERENTIAL AM 11/06/2022 5:39 AM BOILER [employer]PERATORS SUPERVISOR POC GLUCOSE SCREEN Routine 11/06/2022 5: 33 AM [employer]AT[employer] SUPERVISOR OSCILLATORY PEP Routine 11/06/2022 2:00 AM [employer]ER [employer]PERATORS SUPERVISOR POC GLUCOSE SCREEN Routine 11/06/2022 12 :19 AM [employer]AT[employer] SUPERVISOR OSCILLATORY PEP Routine 11/05/2022 8:00 PM [employer]ER [employer]AT[employer] SUPERVISOR POC GLUCOSE SCREEN Routine 11/05/2022 5: 36 PM [employer] SUPERVISOR OSCILLATORY PEP Routine 11/05/2022 2:00 PM [employer]ER [employer]PERATORS SUPERVISOR POC GLUCOSE SCREEN Routine 11/05/2022 12 :33 PM [employer]ER [employer]ATORS SUPERVISOR OSCILLATORY PEP Routine 11/05/2022 8:00 AM BOILER [employer]PERATORS SUPERVISOR PETCT SUBSEQUENT TREATMENT STRATEGY Routine 11/05/2022 7:38 AM BOILER [employer]PERATORS SUPERVISOR POC GLUCOSE SCREEN Routine 11/05/2022 5: 49 AM [employer]AT[employer] SUPERVISOR FRACTIONATED BILIRUBIN AM 5:48 AM [employer]ER [employer]PERATORS SUPERVISOR TOTAL PROTEIN AM 11/05/2022 5:48 AM BO[employer]PERATORS SUPERVISOR ASPARTATE AMINOTRANSFERASE AM 11/05/2022 5:48 AM [employer]PERATORS SUPERVISOR ALANINE AMINOTRANSFERASE AM 5:48 AM BO[employer]ER [employer]PERATORS SUPERVISOR ALKALINE PHOSPHATASE AM 11/05/2022 5:48 AM BOILER OPERATORS SUPERVISOR ALBUMIN LEVEL AM 11/05/2022 5:48 AM BOILER OPERATORS SUPERVISOR CALCIUM LEVEL AM 11/05/2022 5:48 AM BOILER [employer]PERATORS SUPERVISOR .GLOMERULAR FILTRATION RATE AM 11/05/2022 5:48 AM BO[employer]ER [employer]PERATORS SUPERVISOR SERUM CREATININE AM 11/05/2022 5:48 AM BOILER [employer]PERATORS SUPERVISOR ELECTROLYTE PANEL AM 11/05/2022 5:4 8 AM BOILER OPERATORS SUPERVISOR BLOOD UREA NITROGEN AM 11/05/2022 5 :48 AM BOILER [employer]PERATORS SUPERVISOR GLUCOSE LEVEL AM 11/05/2022 5:48 AM BOILER [employer]PERATORS SUPERVISOR DIFFERENTIAL AM 11/05/2022 5:48 AM BOILER [employer]PERATORS SUPERVISOR .CBC AM 11/05/2022 5:48 AM BOILER [employer]PERATORS SUPERVISOR COMPREHENSIVE METABOLIC PANEL AM 11/05/2022 5:48 AM BO[employer]ER [employer]PERATORS SUPERVISOR APTT AM 11/05/2022 5:48 AM BOILER [employer]PERATORS SUPERVISOR PROTHROMBIN TIME AM 11/05/2022 5:48 AM BOILER OPERATORS SUPERVISOR PHOSPHORUS LEVEL AM 11/05/2022 5:48 AM BOILER [employer]PERATORS SUPERVISOR MAGNESIUM LEVEL AM 11/05/2022 5:48 AM BOILER OPERATORS SUPERVISOR COMPLETE BLOOD COUNT W/ DIFFERENTIAL AM 11/05/2022 5:48 AM [employer]AT[employer] SUPERVISOR OSCILLATORY PEP Routine 11/05/2022 2:00 AM [employer]ILER [employer]PERATORS SUPERVISOR POC GLUCOSE SCREEN Routine 11/04/2022 11 :42 PM [employer]AT[employer] SUPERVISOR OSCILLATORY PEP Routine 11/04/2022 8:00 PM [employer]ER [employer]PERATORS SUPERVISOR POC GLUCOSE SCREEN Routine 11/04/2022 5: 35 PM [employer]AT[employer] SUPERVISOR OSCILLATORY PEP Routine 11/04/2022 2:00 PM [employer]ER [employer]PERATORS SUPERVISOR POC GLUCOSE SCREEN Routine 11/04/2022 1: 05 PM [employer] SUPERVISOR OSCILLATORY PEP Routine 11/04/2022 8:00 AM [employer]AT[employer] SUPERVISOR CLOT EXPIRATION DATE Routine 11/04/2022 6:54 AM [employer]PERAT[employer] SUPERVISOR TMP INTERPRETATION ANTIBODY SCREEN NEGATIVE Routine 11/04/2022 6:54 AM [employer]AT[employer] SUPERVISOR FRACTIONATED BILIRUBIN AM 6:54 AM [employer]AT[employer] SUPERVISOR TOTAL PROTEIN AM 11/04/2022 6:54 AM BOILER [employer]PERATORS SUPERVISOR ASPARTATE AMINOTRANSFERASE AM 11/04/2022 6:54 AM [employer]ATORS SUPERVISOR ALANINE AMINOTRANSFERASE AM 6:54 AM [employer]ATORS SUPERVISOR ALKALINE PHOSPHATASE AM 11/04/2022 6:54 AM BO[employer]ER [employer]PERATORS SUPERVISOR ALBUMIN LEVEL AM 11/04/2022 6:54 AM BOILER [employer]PERATORS SUPERVISOR CALCIUM LEVEL AM 11/04/2022 6:54 AM BOILER OPERATORS SUPERVISOR .GLOMERULAR FILTRATION RATE AM 11/04/2022 6:54 AM BO[employer]ER [employer]PERATORS SUPERVISOR SERUM CREATININE AM 11/04/2022 6:54 AM BOILER [employer]PERATORS SUPERVISOR ELECTROLYTE PANEL AM 11/04/2022 6:5 4 AM [employer]ER [employer]PERATORS SUPERVISOR BLOOD UREA NITROGEN AM 11/04/2022 6 :54 AM BO[employer]ER [employer]PERATORS SUPERVISOR GLUCOSE LEVEL AM 11/04/2022 6:54 AM [employer]ER [employer]PERATORS SUPERVISOR DIFFERENTIAL AM 11/04/2022 6:54 AM BO[employer]ER [employer]PERATORS SUPERVISOR .CBC AM 11/04/2022 6:54 AM [employer]PERATORS SUPERVISOR ANTIBODY SCREEN Routine 11/04/2022 6:54 AM [employer]AT[employer] SUPERVISOR ABORH Routine 11/04/2022 6:54 AM [employer]ATORS SUPERVISOR COMPREHENSIVE METABOLIC PANEL AM 11/04/2022 6:54 AM [employer]ATORS SUPERVISOR TYPE AND SCREEN Routine 11/04/2022 6:54 AM [employer]AT[employer] SUPERVISOR APTT AM 11/04/2022 6:54 AM [employer]ER [employer]PERATORS SUPERVISOR PROTHROMBIN TIME AM 11/04/2022 6:54 AM [employer]ER [employer]ATORS SUPERVISOR PHOSPHORUS LEVEL AM 11/04/2022 6:54 AM [employer]ATORS SUPERVISOR MAGNESIUM LEVEL AM 11/04/2022 6:54 AM [employer]ILER [employer]PERATORS SUPERVISOR COMPLETE BLOOD COUNT W/ DIFFERENTIAL AM 11/04/2022 6:54 AM [employer]ATORS SUPERVISOR POC GLUCOSE SCREEN Routine 11/04/2022 6: 25 AM [employer]ATORS SUPERVISOR POC GLUCOSE SCREEN Routine 11/04/2022 5: 33 AM [employer]AT[employer] SUPERVISOR OSCILLATORY PEP Routine 11/04/2022 2:00 AM [employer]ATORS SUPERVISOR POC GLUCOSE SCREEN Routine 11/04/2022 12 :07 AM [employer]AT[employer] SUPERVISOR OSCILLATORY PEP Routine 11/03/2022 8:00 PM [employer]AT[employer] SUPERVISOR POC GLUCOSE SCREEN Routine 11/03/2022 5: 27 PM [employer] SUPERVISOR OSCILLATORY PEP Routine 11/03/2022 2:00 PM [employer]ER [employer]ATORS SUPERVISOR POC GLUCOSE SCREEN Routine 11/03/2022 1: 24 PM [employer]AT[employer] SUPERVISOR ECHOCARDIOGRAM 2D COMPLETE Routine 11/03/2022 11:42 AM [employer]AT[employer] SUPERVISOR OSCILLATORY PEP Routine 11/03/2022 8:00 AM [employer]AT[employer] SUPERVISOR FRACTIONATED BILIRUBIN AM 6:26 AM [employer]AT[employer] SUPERVISOR TOTAL PROTEIN AM 11/03/2022 6:26 AM BOILER [employer]PERATORS SUPERVISOR ASPARTATE AMINOTRANSFERASE AM 11/03/2022 6:26 AM [employer]ER [employer]PERATORS SUPERVISOR ALANINE AMINOTRANSFERASE AM 023 6:26 AM [employer]AT[employer] SUPERVISOR ALKALINE PHOSPHATASE AM 11/03/2022 6:26 AM BOILER [employer]PERATORS SUPERVISOR ALBUMIN LEVEL AM 11/03/2022 6:26 AM BOILER OPERATORS SUPERVISOR CALCIUM LEVEL AM 11/03/2022 6:26 AM BOILER [employer]PERATORS SUPERVISOR .GLOMERULAR FILTRATION RATE AM 11/03/2022 6:26 AM [employer]ER [employer]ATORS SUPERVISOR SERUM CREATININE AM 11/03/2022 6:26 AM BOILER [employer]PERATORS SUPERVISOR ELECTROLYTE PANEL AM 11/03/2022 6:2 6 AM [employer]ER [employer]PERATORS SUPERVISOR BLOOD UREA NITROGEN AM 11/03/2022 6 :26 AM BOILER OPERATORS SUPERVISOR GLUCOSE LEVEL AM 11/03/2022 6:26 AM [employer]ER [employer]ATORS SUPERVISOR DIFFERENTIAL AM 11/03/2022 6:26 AM [employer]ER [employer]ATORS SUPERVISOR .CBC AM 11/03/2022 6:26 AM [employer]AT[employer] SUPERVISOR AMMONIA LEVEL Now 11/03/2022 6:26 AM [employer]ILER [employer]PERATORS SUPERVISOR COMPREHENSIVE METABOLIC PANEL AM 11/03/2022 6:26 AM [employer]ER [employer]AT[employer] SUPERVISOR APTT AM 11/03/2022 6:26 AM [employer]ER [employer]PERATORS SUPERVISOR PROTHROMBIN TIME AM 11/03/2022 6:26 AM BO[employer]ER [employer]PERATORS SUPERVISOR PHOSPHORUS LEVEL AM 11/03/2022 6:26 AM [employer]ER [employer]ATORS SUPERVISOR MAGNESIUM LEVEL AM 11/03/2022 6:26 AM [employer]ER [employer]ATORS SUPERVISOR COMPLETE BLOOD COUNT W/ DIFFERENTIAL AM 11/03/2022 6:26 AM [employer]AT[employer] SUPERVISOR POC GLUCOSE SCREEN Routine 11/03/2022 6: 06 AM [employer] SUPERVISOR POC GLUCOSE SCREEN Routine 11/03/2022 5: 47 AM [employer] SUPERVISOR POC GLUCOSE SCREEN Routine 11/02/2022 11 :23 PM [employer]AT[employer] SUPERVISOR OSCILLATORY PEP Routine 11/02/2022 8:00 PM [employer]AT[employer] SUPERVISOR POC GLUCOSE SCREEN Routine 11/02/2022 5: 42 PM [employer] SUPERVISOR OSCILLATORY PEP Routine 11/02/2022 2:00 PM [employer]AT[employer] SUPERVISOR POC GLUCOSE SCREEN Routine 11/02/2022 12 :50 PM [employer] SUPERVISOR OSCILLATORY PEP Routine 11/02/2022 8:00 AM [employer]AT[employer] SUPERVISOR CALCIUM IONIZED, VENOUS AM 11/02/19 6:12 AM [employer]AT[employer] SUPERVISOR .GLOMERULAR FILTRATION RATE AM 11/02/2022 6:12 AM [employer]AT[employer] SUPERVISOR SERUM CREATININE AM 11/02/2022 6:12 AM [employer]ATORS SUPERVISOR ELECTROLYTE PANEL AM 11/02/2022 6:1 2 AM [employer]ATORS SUPERVISOR BLOOD UREA NITROGEN AM 11/02/2022 6 :12 AM [employer]ER [employer]PERATORS SUPERVISOR GLUCOSE LEVEL AM 11/02/2022 6:12 AM [employer]ER [employer]ATORS SUPERVISOR DIFFERENTIAL AM 11/02/2022 6:12 AM [employer]ATORS SUPERVISOR .CBC AM 11/02/2022 6:12 AM [employer]ER [employer]ATORS SUPERVISOR APTT AM 11/02/2022 6:12 AM [employer]ATORS SUPERVISOR PROTHROMBIN TIME AM 11/02/2022 6:12 AM [employer]ATORS SUPERVISOR PHOSPHORUS LEVEL AM 11/02/2022 6:12 AM [employer]ATORS SUPERVISOR MAGNESIUM LEVEL AM 11/02/2022 6:12 AM [employer]AT[employer] SUPERVISOR BASIC METABOLIC PANEL, CALCIUM IONIZED AM 11/02/2022 6:12 AM [employer]AT[employer] SUPERVISOR COMPLETE BLOOD COUNT W/ DIFFERENTIAL AM 11/02/2022 6:12 AM [employer]AT[employer] SUPERVISOR POC GLUCOSE SCREEN Routine 11/02/2022 5: 51 AM [employer] SUPERVISOR POC GLUCOSE SCREEN Routine 11/01/2022 11 :43 PM [employer] SUPERVISOR XR FOOT 2 VW BILATERAL Routine 8:31 PM [employer] SUPERVISOR MRI BRAIN W WO CONTRAST Routine 11/01/19 8:07 PM [employer] SUPERVISOR OSCILLATORY PEP Routine 11/01/2022 8:00 PM [employer]AT[employer] SUPERVISOR POC GLUCOSE SCREEN Routine 11/01/2022 6: 19 PM [employer]AT[employer] SUPERVISOR OSCILLATORY PEP Routine 11/01/2022 2:00 PM [employer]AT[employer] SUPERVISOR POC GLUCOSE SCREEN Routine 11/01/2022 1: 20 PM [employer] SUPERVISOR OSCILLATORY PEP Routine 11/01/2022 8:07 AM [employer]ATORS SUPERVISOR OSCILLATORY PEP Routine 11/01/2022 8:07 AM [employer]ATORS SUPERVISOR OSCILLATORY PEP Routine 11/01/2022 8:07 AM [employer]AT[employer] SUPERVISOR OSCILLATORY PEP Routine 11/01/2022 8:07 AM [employer]AT[employer] SUPERVISOR TMP INTERPRETATION ANTIBODY SCREEN NEGATIVE Routine 11/01/2022 7:22 AM [employer] SUPERVISOR CLOT EXPIRATION DATE Routine 11/01/2022 7:22 AM [employer]AT[employer] SUPERVISOR CALCIUM IONIZED, VENOUS AM 11/01/19 7:22 AM [employer]ATORS SUPERVISOR .GLOMERULAR FILTRATION RATE AM 11/01/2022 7:22 AM [employer]ATORS SUPERVISOR SERUM CREATININE AM 11/01/2022 7:22 AM [employer]ER [employer]PERATORS SUPERVISOR ELECTROLYTE PANEL AM 11/01/2022 7:2 2 AM [employer]ATORS SUPERVISOR BLOOD UREA NITROGEN AM 11/01/2022 7 :22 AM BOILER OPERATORS SUPERVISOR GLUCOSE LEVEL AM 11/01/2022 7:22 AM [employer]ER [employer]ATORS SUPERVISOR DIFFERENTIAL AM 11/01/2022 7:22 AM [employer]ER [employer]ATORS SUPERVISOR .CBC AM 11/01/2022 7:22 AM [employer]ER [employer]ATORS SUPERVISOR ANTIBODY SCREEN Routine 11/01/2022 7:22 AM [employer]ER [employer]ATORS SUPERVISOR ABORH Routine 11/01/2022 7:22 AM [employer]ER [employer]PERATORS SUPERVISOR TYPE AND SCREEN Routine 11/01/2022 7:22 AM [employer]ER [employer]ATORS SUPERVISOR APTT AM 11/01/2022 7:22 AM [employer]ER [employer]ATORS SUPERVISOR PROTHROMBIN TIME AM 11/01/2022 7:22 AM [employer]ER [employer]PERATORS SUPERVISOR PHOSPHORUS LEVEL AM 11/01/2022 7:22 AM [employer]ATORS SUPERVISOR MAGNESIUM LEVEL AM 11/01/2022 7:22 AM [employer]AT[employer] SUPERVISOR BASIC METABOLIC PANEL, CALCIUM IONIZED AM 11/01/2022 7:22 AM [employer] SUPERVISOR COMPLETE BLOOD COUNT W/ DIFFERENTIAL AM 11/01/2022 7:22 AM [employer] SUPERVISOR POC GLUCOSE SCREEN Routine 11/01/2022 5: 56 AM [employer] SUPERVISOR POC GLUCOSE SCREEN Routine 10/31/2022 11 :45 PM [employer] SUPERVISOR POC GLUCOSE SCREEN Routine 10/31/2022 5: 47 PM [employer] SUPERVISOR POC GLUCOSE SCREEN Routine 10/31/2022 12 :36 PM [employer] SUPERVISOR POC GLUCOSE SCREEN Routine 10/31/2022 6: 46 AM [employer] SUPERVISOR US LEG VENOUS DOPPLER BILATERAL Routine 10/31/2022 6:13 AM [employer] SUPERVISOR DIFFERENTIAL AM 10/31/2022 6:10 AM [employer] SUPERVISOR .CBC AM 10/31/2022 6:10 AM [employer] SUPERVISOR COMPLETE BLOOD COUNT W/ DIFFERENTIAL AM 10/31/2022 6:10 AM [employer] SUPERVISOR CALCIUM IONIZED, VENOUS AM 10/31/20 6:06 AM [employer] SUPERVISOR APTT AM 10/31/2022 6:04 AM [employer] SUPERVISOR PROTHROMBIN TIME AM 10/31/2022 6:04 AM [employer] SUPERVISOR .GLOMERULAR FILTRATION RATE AM 10/31/2022 5:00 AM [employer] SUPERVISOR SERUM CREATININE AM 10/31/2022 5:00 AM [employer] SUPERVISOR ELECTROLYTE PANEL AM 10/31/2022 5:0 0 AM [employer] SUPERVISOR BLOOD UREA NITROGEN AM 10/31/2022 5 :00 AM [employer] SUPERVISOR GLUCOSE LEVEL AM 10/31/2022 5:00 AM [employer] SUPERVISOR PHOSPHORUS LEVEL AM 10/31/2022 5:00 AM [employer] SUPERVISOR MAGNESIUM LEVEL AM 10/31/2022 5:00 AM [employer] SUPERVISOR BASIC METABOLIC PANEL, CALCIUM IONIZED AM 10/31/2022 5:00 AM [employer] SUPERVISOR POC GLUCOSE SCREEN Routine 10/31/2022 1: 55 AM [employer] SUPERVISOR POC GLUCOSE SCREEN Routine 10/30/2022 11 :28 PM [employer] SUPERVISOR POC GLUCOSE SCREEN Routine 10/30/2022 5: 44 PM [employer] SUPERVISOR POC GLUCOSE SCREEN Routine 10/30/2022 11 :17 AM [employer] SUPERVISOR POC GLUCOSE SCREEN Routine 10/30/2022 5: 20 AM [employer] SUPERVISOR XR CHEST 1 VW PORTABLE Routine 2 4:03 AM [employer] SUPERVISOR CALCIUM IONIZED, VENOUS AM 10/30/20 22 3:29 AM [employer] SUPERVISOR FRACTIONATED BILIRUBIN AM 3:28 AM [employer] SUPERVISOR TOTAL PROTEIN AM 10/30/2022 3:28 AM [employer] SUPERVISOR ASPARTATE AMINOTRANSFERASE AM 10/30/2022 3:28 AM [employer] SUPERVISOR ALANINE AMINOTRANSFERASE AM 022 3:28 AM [employer] SUPERVISOR ALKALINE PHOSPHATASE AM 10/30/2022 3:28 AM [employer] SUPERVISOR ALBUMIN LEVEL AM 10/30/2022 3:28 AM [employer] SUPERVISOR .GLOMERULAR FILTRATION RATE AM 10/30/2022 3:28 AM [employer] SUPERVISOR SERUM CREATININE AM 10/30/2022 3:28 AM [employer] SUPERVISOR ELECTROLYTE PANEL AM 10/30/2022 3:2 8 AM [employer] SUPERVISOR BLOOD UREA NITROGEN AM 10/30/2022 3 :28 AM [employer] SUPERVISOR GLUCOSE LEVEL AM 10/30/2022 3:28 AM [employer] SUPERVISOR DIFFERENTIAL AM 10/30/2022 3:28 AM [employer] SUPERVISOR .CBC STAT 10/30/2022 3:28 AM [employer] SUPERVISOR APTT AM 10/30/2022 3:28 AM [employer] SUPERVISOR PROTHROMBIN TIME AM 10/30/2022 3:28 AM [employer] SUPERVISOR PHOSPHORUS LEVEL AM 10/30/2022 3:28 AM [employer] SUPERVISOR MAGNESIUM LEVEL AM 10/30/2022 3:28 AM [employer] SUPERVISOR HEPATIC FUNCTION PANEL AM 2 3:28 AM [employer] SUPERVISOR BASIC METABOLIC PANEL, CALCIUM IONIZED AM 10/30/2022 3:28 AM [employer] SUPERVISOR COMPLETE BLOOD COUNT W/ DIFFERENTIAL AM 10/30/2022 3:28 AM [employer] SUPERVISOR BLOOD GAS ARTERIAL AM 10/30/2022 3: 28 AM [employer] SUPERVISOR POC GLUCOSE SCREEN Routine 10/29/2022 11 :58 PM [employer] SUPERVISOR POC GLUCOSE SCREEN Routine 10/29/2022 5: 24 PM [employer] SUPERVISOR XR CHEST 1 VW PORTABLE Routine 4:55 PM [employer] SUPERVISOR GLUCOSE BODY FLUID Now 10/29/2022 4: 30 PM [employer] SUPERVISOR BODY FLUID DIFF PATH REVIEW Now 10/29/2022 4:30 PM [employer] SUPERVISOR BODY FLUID DIFFERENTIAL Now 10/29/20 22 4:30 PM [employer] SUPERVISOR CELL COUNT BODY FLUID Now 10/29/2022 4:30 PM [employer] SUPERVISOR AFB CULTURE W/ SMEAR Now 10/29/2022 4:30 PM [employer] SUPERVISOR FUNGAL CULTURE W/ SMEAR Now 10/29/20 22 4:30 PM [employer] SUPERVISOR BODY FLUID CULTURE W/ GRAM STAIN Now 10/29/2022 4:30 PM [employer] SUPERVISOR CELL COUNT W/ DIFF BODY FLUID Now 10/29/2022 4:30 PM [employer] SUPERVISOR LACTATE DEHYDROGENASE BODY FLUID Routine 10/29/2022 4:30 PM [employer] SUPERVISOR AMYLASE LEVEL BODY FLUID Now 022 4:30 PM [employer] SUPERVISOR CHOLESTEROL BODY FLUID Now 4:30 PM [employer] SUPERVISOR TRIGLYCERIDE BODY FLUID Now 10/29/20 4:30 PM [employer] SUPERVISOR PROTEIN BODY FLUID Now 10/29/2022 4: 30 PM [employer] SUPERVISOR CONFIRM ABORH TYPE Now 10/29/2022 4: 28 PM [employer] SUPERVISOR TMP INTERPRETATION ANTIBODY SCREEN NEGATIVE Routine 10/29/2022 4:25 PM [employer] SUPERVISOR CLOT EXPIRATION DATE Routine 10/29/2022 4:25 PM [employer] SUPERVISOR ANTIBODY SCREEN Now 10/29/2022 4:25 PM [employer] SUPERVISOR ABORH Now 10/29/2022 4:25 PM [employer] SUPERVISOR TYPE AND SCREEN Now 10/29/2022 4:25 PM [employer] SUPERVISOR POC GLUCOSE SCREEN Routine 10/29/2022 1: 35 PM [employer] SUPERVISOR CHEST TUBE INSERTION Routine 10/29/2022 12:00 PM [employer] SUPERVISOR Acute respiratory failure with hypoxia Pleural effusion Bilateral pneumonia POC GLUCOSE SCREEN Routine 10/29/2022 11 :24 AM [employer] SUPERVISOR XR CHEST 1 VW STAT 10/29/2022 9:36 AM [employer] SUPERVISOR BLOOD GAS ARTERIAL STAT 10/29/2022 8: 31 AM [employer] SUPERVISOR TROPONIN T STAT 10/29/2022 8:31 AM [employer] SUPERVISOR POC ARTERIAL BLOOD GAS Routine 7:40 AM [employer] SUPERVISOR POC GLUCOSE SCREEN Routine 10/29/2022 6: 42 AM [employer] SUPERVISOR FRACTIONATED BILIRUBIN AM 6:05 AM [employer] SUPERVISOR TOTAL PROTEIN AM 10/29/2022 6:05 AM [employer] SUPERVISOR ASPARTATE AMINOTRANSFERASE AM 10/29/2022 6:05 AM [employer] SUPERVISOR ALANINE AMINOTRANSFERASE AM 022 6:05 AM [employer] SUPERVISOR ALKALINE PHOSPHATASE AM 10/29/2022 6:05 AM [employer] SUPERVISOR ALBUMIN LEVEL AM 10/29/2022 6:05 AM [employer] SUPERVISOR CALCIUM LEVEL AM 10/29/2022 6:05 AM [employer] SUPERVISOR .GLOMERULAR FILTRATION RATE AM 10/29/2022 6:05 AM [employer] SUPERVISOR SERUM CREATININE AM 10/29/2022 6:05 AM [employer] SUPERVISOR ELECTROLYTE PANEL AM 10/29/2022 6:0 5 AM [employer] SUPERVISOR BLOOD UREA NITROGEN AM 10/29/2022 6 :05 AM [employer] SUPERVISOR GLUCOSE LEVEL AM 10/29/2022 6:05 AM [employer] SUPERVISOR DIFFERENTIAL AM 10/29/2022 6:05 AM [employer] SUPERVISOR .CBC AM 10/29/2022 6:05 AM [employer] SUPERVISOR PHOSPHORUS LEVEL AM 10/29/2022 6:05 AM [employer] SUPERVISOR MAGNESIUM LEVEL AM 10/29/2022 6:05 AM [employer] SUPERVISOR COMPREHENSIVE METABOLIC PANEL AM 10/29/2022 6:05 AM [employer] SUPERVISOR COMPLETE BLOOD COUNT W/ DIFFERENTIAL AM 10/29/2022 6:05 AM [employer] SUPERVISOR EKG, 12-LEAD (PORTABLE) STAT 10/29/2022 POC GLUCOSE SCREEN Routine 10/28/2022 4: 25 PM [employer] SUPERVISOR POC GLUCOSE SCREEN Routine 10/28/2022 7: 24 AM [employer] SUPERVISOR POC GLUCOSE SCREEN Routine 10/28/2022 6: 58 AM [employer] SUPERVISOR FRACTIONATED BILIRUBIN AM 5:34 AM [employer] SUPERVISOR TOTAL PROTEIN AM 10/28/2022 5:34 AM [employer] SUPERVISOR ASPARTATE AMINOTRANSFERASE AM 10/28/2022 5:34 AM [employer] SUPERVISOR ALANINE AMINOTRANSFERASE AM 022 5:34 AM [employer] SUPERVISOR ALKALINE PHOSPHATASE AM 10/28/2022 5:34 AM [employer] SUPERVISOR ALBUMIN LEVEL AM 10/28/2022 5:34 AM [employer] SUPERVISOR CALCIUM LEVEL AM 10/28/2022 5:34 AM [employer] SUPERVISOR .GLOMERULAR FILTRATION RATE AM 10/28/2022 5:34 AM [employer] SUPERVISOR SERUM CREATININE AM 10/28/2022 5:34 AM [employer] SUPERVISOR ELECTROLYTE PANEL AM 10/28/2022 5:3 4 AM [employer] SUPERVISOR BLOOD UREA NITROGEN AM 10/28/2022 5 :34 AM [employer] SUPERVISOR GLUCOSE LEVEL AM 10/28/2022 5:34 AM [employer] SUPERVISOR DIFFERENTIAL AM 10/28/2022 5:34 AM [employer] SUPERVISOR .CBC AM 10/28/2022 5:34 AM [employer] SUPERVISOR PHOSPHORUS LEVEL AM 10/28/2022 5:34 AM [employer] SUPERVISOR MAGNESIUM LEVEL AM 10/28/2022 5:34 AM [employer] SUPERVISOR COMPREHENSIVE METABOLIC PANEL AM 10/28/2022 5:34 AM [employer] SUPERVISOR COMPLETE BLOOD COUNT W/ DIFFERENTIAL AM 10/28/2022 5:34 AM [employer] SUPERVISOR HEMOGLOBIN A1C AM 10/28/2022 5:34 AM [employer] SUPERVISOR after 10/28/2022 Results * MRI Brain with and without Contrast (10/04/2023 7:51 AM [employer] SUPERVISOR) Only the most recent of2 resultswithin the time period is included. Anatomical Region Laterality Modality Head Magnetic Resonan ce 10/04/2023 9:21 AM [employer] SUPERVISOR Impressions 10/04/2023 9:24 AM [employer] SUPERVISOR 1. No evidence of an acute infarct. 2. No evidence of enhancing intracranial metastases. Narrative 10/04/2023 9:24 AM [employer] SUPERVISOR FULL RESULT: Examination: MRI BRAIN W WO CONTRAST on 10/04/2023 7:51 AM. 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 TECHNIQUE: MRI of the brain without and with IV contrast was performed. FINDINGS: Artifact is noted on the acquired images, decreasing sensitivity for detection of intracranial abnormality. INTRACRANIAL: There is no evidence of restricted diffusion, abnormal enhancement or susceptibility effect within the brain parenchyma or along the leptomeninges. The ventricles are age-appropriate in size and configuration. Scattered patchy foci of T2 prolongation within the artery noted, likely reflective of chronic small vessel changes. The major intracranial flow voids are patent. EXTRACRANIAL: The orbits, calvarium and overlying soft tissues are unremarkable. The paranasal sinuses and mastoid air cells are predominantly clear. Procedure Note Anum Nogueira MD - 10/04/2023 FULL RESULT: Examination: MRI BRAIN W WO CONTRAST on 10/04/2023 7:51 AM. 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 TECHNIQUE: MRI of the brain without and with IV contrast was performed. FINDINGS: Artifact is noted on the acquired images, decreasing sensitivityfor detection of intracranial abnormality. INTRACRANIAL: There is no evidence of restricted diffusion, abnormalenhancement or susceptibility effect within the brain parenchyma or alongthe leptomeninges. The ventricles are age-appropriate in size andconfiguration. Scattered patchy foci of T2 prolongation within the arterynoted, likely reflective of chronic small vessel changes. The majorintracranial flow voids are patent. EXTRACRANIAL: The orbits, calvarium and overlying soft tissues areunremarkable. The paranasal sinuses and mastoid air cells arepredominantly clear. IMPRESSION: 1. No evidence of an acute infarct. 2. No evidence of enhancing intracranial metastases. Yvette De La Torre APRN IMG MRI ORDERABLES * CT Chest Abdomen Pelvis with Contrast (07/19/2023 8:57 AM CDT) Anatomical Region Laterality Modality Abdomen, Pelvis, Chest Computed Tomography 07/19/2023 9:39 AM CDT Impressions 07/19/2023 10:18 AM CDT 1. Since 04/16/2023, the patient has developed a new metastatic liver lesion and a new metastatic left rib sclerotic lesion. 2. Left pleural metastatic disease and other hepatic metastasis are unchanged since 04/15/2023. Unchanged mildly suspicious anterior mediastinal lymph node. Other osseous metastases are unchanged from 04/15/2023. 3. Ill-defined wedge-shaped hypodensities in the kidneys are unchanged from 04/15/2020, possibly pyelonephritis or perfusional. 4. Severe narrowing of the distal right common carotid artery and proximal right subclavian artery, similar to prior. 5. Severe compression deformity at T12, with resulting spinal canal narrowing, grossly unchanged. 6. Other findings as above. ACTIONABLE ITEMS/RECOMMENDATIONS: See Impression Narrative 07/19/2023 10:18 AM CDT Examination: CT CHEST ABDOMEN PELVIS W CONTRAST on 07/19/2023 8:57 AM. 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 Indication: Cancer staging or restaging. Comparison: CT chest 04/15/2023 CT abdomen and pelvis 04/15/2023 Technique: CT images of the chest, abdomen and pelvis with IV contrast CHEST FINDINGS: Lungs and pleural: Partial left lower lobe atelectasis. Right apical fibrosis and right anterior pleural-parenchymal scarring. Small to moderate left pleural effusion, mildly loculated,. Numerous left sided pleural-based nodules and masses, largest 3.7 x 1.3 cm posteriorly and inferiorly (6-132) and 1.9 x 1.2 cm superomedially invading the mediastinum (6-19), grossly similar to prior exam given differences in technique. Previously noted small 4 mm focus of mucus plugging in the right lower lobe has resolved. Persistent nonspecific micronodule at the right lung base (6-47) Lymph nodes: Prevascular/AP window lymph nodes up to 1 cm short axis, grossly unchanged. Cardiac vascular and Mediastinum: Calcified atherosclerotic disease. Severe narrowing of the distal right common carotid artery and proximal right subclavian artery, similar to prior. Lower Neck, Axillae, and Chest Wall: Right mastectomy Lines and Tubes: None ABDOMEN AND PELVIS FINDINGS: Liver: Centrally necrotic 2.1 cm segment 7 liver lesion, no convincing change. A 1.6 cm segment 6 liver lesion (6-140) is new from prior exam. Gallbladder and bile ducts: The gallbladder is absent. Mild to moderate biliary ductal dilation, likely related to postcholecystectomy biliary reservoir effect, unchanged. Spleen: No splenic mass. Pancreas: No pancreatic mass or ductal dilation Adrenal glands: No adrenal mass. Kidneys and ureters: No hydronephrosis. No solid renal mass. Subtle wedge-shaped foci of slight parenchymal hypoenhancement of the bilateral upper and lower poles, similar to prior exam Gastrointestinal Tract: Nondilated bowel with no wall thickening. Urinary bladder and reproductive organs: Unremarkable. Peritoneum/Retroperitoneum: Unremarkable. Lymph Nodes: No pathologically enlarged lymph nodes in the abdomen or pelvis. Subcentimeter short axis left periaortic lymph nodes are without significant change, up to 0.7 cm short axis (6-155) Vessels: Severe atherosclerotic disease. Lines and Tubes: None. MUSCULOSKELETAL FINDINGS: The bones are diffusely demineralized. No convincing change in the mildly sclerotic lesion at T9. Severe compression deformity at T12, with retropulsion and moderate to severe spinal canal narrowing, grossly unchanged. New sclerotic lesion within the left 8th rib laterally (6-130). Other scattered sclerotic rib lesions, for example within the right lateral 6th rib and left anterior lateral 9th rib, no change Procedure Note Pola Guzmán MD - 07/19/2023 Examination: CT CHEST ABDOMEN PELVIS W CONTRAST on 07/19/2023 8:57 AM. 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 Indication: Cancer staging or restaging. Comparison: CT chest 04/15/2023 CT abdomen and pelvis 04/15/2023 Technique: CT images of the chest, abdomen and pelvis with IV contrast CHEST FINDINGS: Lungs and pleural: Partial left lower lobe atelectasis. Right apicalfibrosis and right anterior pleural-parenchymal scarring. Small tomoderate left pleural effusion, mildly loculated,. Numerous left sidedpleural-based nodules and masses, largest 3.7 x 1.3 cm posteriorly andinferiorly (6-132) and 1.9 x 1.2 cm superomedially invading themediastinum (6-19), grossly similar to prior exam given differences intechnique. Previously noted small 4 mm focus of mucus plugging in theright lower lobe has resolved. Persistent nonspecific micronodule at theright lung base (6-47) Lymph nodes: Prevascular/AP window lymph nodes up to 1 cm short axis,grossly unchanged. Cardiac vascular and Mediastinum: Calcified atherosclerotic disease.Severe narrowing of the distal right common carotid artery and proximalright subclavian artery, similar to prior. Lower Neck, Axillae, and Chest Wall: Right mastectomy Lines and Tubes: None ABDOMEN AND PELVIS FINDINGS: Liver: Centrally necrotic 2.1 cm segment 7 liver lesion, no convincingchange. A 1.6 cm segment 6 liver lesion (6-140) is new from prior exam. Gallbladder and bile ducts: The gallbladder is absent. Mild to moderatebiliary ductal dilation, likely related to postcholecystectomy biliaryreservoir effect, unchanged. Spleen: No splenic mass. Pancreas: No pancreatic mass or ductal dilation Adrenal glands: No adrenal mass. Kidneys and ureters: No hydronephrosis. No solid renal mass. Subtlewedge-shaped foci of slight parenchymal hypoenhancement of the bilateralupper and lower poles, similar to prior exam Gastrointestinal Tract: Nondilated bowel with no wall thickening. Urinary bladder and reproductive organs: Unremarkable. Peritoneum/Retroperitoneum: Unremarkable. Lymph Nodes: No pathologically enlarged lymph nodes in the abdomen orpelvis. Subcentimeter short axis left periaortic lymph nodes are withoutsignificant change, up to 0.7 cm short axis (6-155) Vessels: Severe atherosclerotic disease. Lines and Tubes: None. MUSCULOSKELETAL FINDINGS: The bones are diffusely demineralized. No convincing change in the mildly sclerotic lesion at T9. Severecompression deformity at T12, with retropulsion and moderate to severespinal canal narrowing, grossly unchanged. New sclerotic lesion within the left 8th rib laterally (6-130). Otherscattered sclerotic rib lesions, for example within the right lateral 6thrib and left anterior lateral 9th rib, no change IMPRESSION: 1. Since 04/16/2023, the patient has developed a new metastatic liverlesion and a new metastatic left rib sclerotic lesion. 2. Left pleural metastatic disease and other hepatic metastasis areunchanged since 04/15/2023. Unchanged mildly suspicious anteriormediastinal lymph node. Other osseous metastases are unchanged from04/15/2023. 3. Ill-defined wedge-shaped hypodensities in the kidneys are unchangedfrom 04/15/2020, possibly pyelonephritis or perfusional. 4. Severe narrowing of the distal right common carotid artery andproximal right subclavian artery, similar to prior. 5. Severe compression deformity at T12, with resulting spinal canalnarrowing, grossly unchanged. 6. Other findings as above. ACTIONABLE ITEMS/RECOMMENDATIONS: See Impression Yvette De La Torre APRN IMG CT ORDERABLES * (ABNORMAL) .Serum Creatinine (07/19/2023 6:28 AM CDT) Only the most recent of15 resultswithin the time period is included. Pathologist [facility] Creatinine 1.20(H) 0.51 - 0.95 mg/dL [place] Comment:Testing performed at [facility], [address] [place] [id number] Blood 07/19/2023 6:28 AM CDT 07/19/2023 6:28 AM CDT Yvette De La Torre APRN LAB BLOOD ORDERABLES [facility] [address] [facility], [facility] [address] [place] [address] * (ABNORMAL) .CBC (07/19/2023 6:28 AM CDT) Only the most recent of14 resultswithin the time period is included. [facility] WBC 7.9 4.1 - 10.5 K/uL [place] Comment:All components of th e CBC performed at [facility], [address] [place] [address], [place] [address] RBC 3.09(L) 3.99 - 5.46 M/uL [place] Comment:All components of th e CBC performed at [facility], [address] [place] [address], [place] [address] Hgb 9.9(L) 12.2 - 15.3 gm/dL [place] Comment:As part of CBC or as an individual orderable testing performed at [facility], [address] [place] [address], [place] [address] Hct 30.7(L) 36.4 - 46.8 % [place] Comment:As part of CBC testi ng performed at [facility], [address] [place] [address], [place] [address] MCV 99 82 - 99 fL [place] Comment:As part of CBC testi ng performed at [facility], [address] [place] [address], [place] [address] MCH 32.0 26.6 - 33.2 pg [place] Comment:As part of CBC testi ng performed at [facility], [address] [place] [address], [place] [address] MCHC 32.2 31.1 - 35.2 gm/dL [place] Comment:As part of CBC testi ng performed at [facility], [address] [place] [address], [place] [address] RDW-SD 48.8 37.5 - 49.7 fL [place] Comment:As part of CBC testi ng performed at [facility], [address] [place] [address], [place] [address] RDW-CV 13.3 11.6 - 15.5 % [place] Comment:As part of CBC testi ng performed at [facility], [address] [place] [address], [place] [address] Platelet count 199 160 - 397 K/uL [place] Comment:As part of CBC or an individual orderable testing performed at [facility], [address] [place] [address], [place] [address] MPV 9.8 9.1 - 12.6 fL [place] Comment:As part of CBC testi ng performed at [facility], [address] [place] [address] Blood 07/19/2023 6:28 AM CDT 07/19/2023 6:28 AM CDT Yvette De La Torre APRN LAB BLOOD ORDERABLES Performing Organization Address [facility]/[place] Co de Phone Number [facility] [address] [place] [address], [facility] [address] [place] [address] * (ABNORMAL) Glomerular Filtration Rate (07/19/2023 6:28 AM CDT) Only the most recent of15 resultswithin the time period is included. eGFR 47(L) >=60 mL/min/1.7 3 sq. m [place] Comment: The eGFRcr is calculated with the 2020 CKD-EPI creatinine equation using creatinine, patient's age, and sex for adults 18 years of age and older. Other factors, especially muscle mass, may affect accuracy and need to be considered. According to the Kidney Disease: Improving Global Outcomes (KDIGO) CKD Work Group 2012 Clinical Practice Guideline, chronic kidney disease (CKD) is defined as the abnormalities of kidney structure or function, present for more than 3 months, with implications for health. CKD should be classified by cause, GFR category, and albuminuria category. KDIGO guidelines provide the following GFR categories Stage Description GFR mL/min/1.73 m2 G1* Normal or high >= 90 G2* Mildly decreased 60-89 G3a Mildly to moderately decreased 45-59 G3b Moderately to severely decreased 30-44 G4 Severely decreased 15-29 G5 Kidney failure <15 *In the absence of evidence of kidney damage, neither G1 nor G2 fulfill criteria for CKD. Testing performed at [facility], [address] [place] [id number] Blood 07/19/2023 6:28 AM CDT 07/19/2023 6:28 AM CDT Yvette De La Torre APRN LAB BLOOD ORDERABLES [address], [facility] [address] [place] [address] * Fractionated Bilirubin (07/19/2023 6:28 AM CDT) Only the most recent of11 resultswithin the time period is included. [facility] Bili Total <0.3 <=1.2 mg/dL [place] Comment: Direct and indirect bilirubin will not be reported when Total bilirubin result is <0.3 mg/dL Indocyanine Green (ICG) may cause falsely elevated bilirubin results. Total and direct bilirubin must not be measured from samples containing indocyanine green. False elevation of total bilirubin can be seen in patients with IgG concentrations above 28 g/L. Testing performed at [facility], [address] [place] [address] Blood 07/19/2023 6:28 AM CDT 07/19/2023 6:28 AM CDT Yvette De La Torre APRN LAB BLOOD ORDERABLES Performing Organization Address City/State/[place] Co de Phone Number [address], [facility] [address] [place] [address] * (ABNORMAL) Differential (07/19/2023 6:28 AM CDT) Only the most recent of14 resultswithin the time period is included. [facility] Neutrophil % 75.2(H) 43.2 - 72.7 % [place] Comment:All components of th e Differential performed at [facility], [address] [place] [address] Lymphocyte % 14.2(L) 16.8 - 46.2 % [place] Comment:As part of the Diffe rential testing performed at [facility], [address] [place] [address] Monocyte % 7.0 5.1 - 12.5 % [place] Comment:As part of the Diffe rential testing performed at [facility], [address] [place] [address] Eosinophil % 3.4 0.4 - 6.3 % [place] Comment:As part of the Diffe rential testing performed at [facility], [address] [place] [address] Basophil % 0.1(L) 0.2 - 1.4 % [place] Comment:As part of the Diffe rential testing performed at [facility], [address] [place] [address] IGRE % 0.1 0.1 - 1.5 % [place] Comment: IGRE % count includes Metamyelocytes, Myelocytes, and Promyelocytes. As part of the Differential testing performed at [facility], [address] [place] [address] Neutrophil Abs 5.93 1.95 - 7.25 K/uL [place] Comment:As part of the Diffe rential testing performed at [facility], [address] [place] [address] Lymphocyte Abs 1.12 1.01 - 3.24 K/uL [place] Comment:As part of the Diffe rential testing performed at [facility], [address] [place] [phone] Monocyte Abs 0.55 0.24 - 0.85 K/uL [place] Comment:As part of the Diffe rential testing performed at [facility], [address] [place] [address] Eosinophil Abs 0.27 0.02 - 0.50 K/uL [place] Comment:As part of the Diffe rential testing performed at [facility], [address] [place] [address] Basophil Abs 0.01(L) 0.02 - 0.09 K/uL [place] Comment:As part of the Diffe rential testing performed at [facility], [address] [place], [place] [id number] IG Abs 0.01 0.01 - 0.12 K/uL [place] Comment:As part of the Diffe rential testing performed at [facility], [address] [place] [address] Blood 07/19/2023 6:28 AM CDT 07/19/2023 6:28 AM CDT Yvette Preciado Wil ANGELN LAB BLOOD ORDERABLES [address], [address] [address] * BUN (07/19/2023 6:28 AM CDT) Only the most recent of14 resultswithin the time period is included. BUN 18 6 - 23 mg/dL [place] Comment:Testing performed at [facility], [address] [place] [address] Blood 07/19/2023 6:28 AM CDT 07/19/2023 6:28 AM CDT Yvette Preciado DemetrisGonzalez LAB BLOOD ORDERABLES Performing Organization Address City/[facility]/ZIP Co de Phone Number [address], [address] [address] * ALT (07/19/2023 6:28 AM CDT) Only the most recent of11 resultswithin the time period is included. ALT 13 <=33 U/L [place] Comment:Testing performed at [facility], [address] [place] [address] Blood 07/19/2023 6:28 AM CDT 07/19/2023 6:28 AM CDT Yvette Preciado DemetrisGonzalez LAB BLOOD ORDERABLES [address], [address] [address] * Aspartate Aminotransferase (07/19/2023 6:28 AM CDT) Only the most recent of11 resultswithin the time period is included. AST 19 <=32 U/L [place] Comment:Testing performed at [facility], [address] [place] [address] Blood 07/19/2023 6:28 AM CDT 07/19/2023 6:28 AM CDT Yvette De La Torre APRN LAB BLOOD ORDERABLES Performing Organization Address City/[facility]/ZIP Co de Phone Number [address], [address] [address] * (ABNORMAL) Total Protein (07/19/2023 6:28 AM CDT) Only the most recent of11 resultswithin the time period is included. Pathologist Dong Total Protein 6.3(L) 6.4 - 8.3 g/dL [place] Comment:Testing performed at [facility], [address] [place] [phone] Blood 07/19/2023 6:28 AM CDT 07/19/2023 6:28 AM CDT Yvette De La Torre APRN LAB BLOOD ORDERABLES [address], [address] [address] * Alkaline Phosphatase (07/19/2023 6:28 AM CDT) Only the most recent of11 resultswithin the time period is included. Alk Phos 60 35 - 104 U/L [place] Comment:Testing performed at [facility], [address] [place] [phone] Blood 07/19/2023 6:28 AM CDT 07/19/2023 6:28 AM CDT Yvette De La Torre APRN LAB BLOOD ORDERABLES [address], [address] [address] * (ABNORMAL) Glucose Level (07/19/2023 6:28 AM CDT) Only the most recent of14 resultswithin the time period is included. Glucose Level 187(H) 70 - 99 mg/dL [place] Comment: Effective 05/27/16, the glucose reference intervals have been updated based on [place] [employer] guidelines (Standards of Medical Care in Diabetes 2016. Diabetes Care 2016; 39: S13-S22). Fasting blood glucose: Normal: 70-99 mg/dL Impaired fasting glucose (increased risk for diabetes or pre-diabetes): 100- 125 mg/dL Diabetes mellitus: >/=126 mg/dL Random blood glucose: Normal: 70-199 mg/dL Note: Random glucose >100 mg/dL is associated with increased risk for diabetes Testing performed at [facility], [address] [place] [id number] Blood 07/19/2023 6:28 AM CDT 07/19/2023 6:28 AM CDT Yvette De La Torre APRN LAB BLOOD ORDERABLES [address] [id number] * Calcium Level (07/19/2023 6:28 AM CDT) Only the most recent of11 resultswithin the time period is included. Calcium Lvl 8.6 8.4 - 10.2 mg/dL [place] Comment:Testing performed at [facility], [address] [place] [id number] Blood 07/19/2023 6:28 AM CDT 07/19/2023 6:28 AM CDT Yvette De La Torre HOME AGENT LAB BLOOD ORDERABLES [address] [address] * (ABNORMAL) Albumin Level (07/19/2023 6:28 AM CDT) Only the most recent of11 resultswithin the time period is included. Albumin Lvl 3.3(L) 3.5 - 5.2 gm/dL [place] Comment:Testing performed at [facility], [address] [place] [id number] Blood 07/19/2023 6:28 AM CDT 07/19/2023 6:28 AM CDT Yvette De La Torre APRN LAB BLOOD ORDERABLES [address], [facility] [address] [place] [address] * Electrolyte Panel (07/19/2023 6:28 AM CDT) Only the most recent of14 resultswithin the time period is included. Sodium Lvl 138 136 - 145 mEq/L [place] Comment:Testing performed at [facility], [address] [place] [phone] Potassium Lvl 3.9 3.5 - 5.1 mEq/L [place] Comment:Testing performed at [facility], [address] [place] [phone] Chloride 105 98 - 107 mEq/L [place] Comment:Testing performed at [facility], [address] [place] [phone] CO2 23 22 - 29 mEq/L [place] Comment:Testing performed at [facility], [address] [place] [phone] Anion Gap 10 4 - 14 mEq/L [place] Comment:Testing performed at [facility], [address] [place] [phone] Blood 07/19/2023 6:28 AM CDT 07/19/2023 6:28 AM CDT Yvette De La Torre APRN LAB BLOOD ORDERABLES AMANDA ELLIS [facility] AMANDA ELLIS [address] [facility], [facility] [address] [place] [address] * X-ray Chest 2 Views (1 month) (05/05/2023 1:20 PM CDT) Only the most recent of5 resultswithin the time period is included. Anatomical Region Laterality Modality Chest Digital Radiogra phy 05/05/2023 1:26 PM CDT Impressions 05/05/2023 1:28 PM CDT Unchanged small left pleural effusion. Improvement in reticular and nodular lung opacities. Narrative 05/05/2023 1:28 PM CDT FULL RESULT: Examination: PA and Lateral Chest Radiographs, 2 views 05/05/2023 1:20 PM. 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 Indication: Pleural effusion. Comparison: Chest portable 04/15/2023 at 2050 hours Technique: Dual energy subtraction PA and lateral chest radiographs. Findings: Depth of lung inflation is similar to the previous study. Reticular and nodular markings in both lungs have improved. Opacity in the right medial apex is compatible with sequela of radiation therapy to the right breast. Small left pleural effusion is unchanged. No pneumothorax. Stable cardiomediastinal silhouette. There is rotatory thoracolumbar scoliosis. Right mastectomy is unchanged. Procedure Note Gracie Fields MD - 05/05/2023 FULL RESULT: Examination: PA and Lateral Chest Radiographs, 2 views 05/05/2023 1:20 PM. Clinical History: Hormone receptor positive malignant neoplasm ofbreast. Indication: Pleural effusion. Comparison: Chest portable 04/15/2023 at 2050 hours Technique: Dual energy subtraction PA and lateral chest radiographs. Findings: Depth of lung inflation is similar to the previous study. Reticular andnodular markings in both lungs have improved. Opacity in the right medialapex is compatible with sequela of radiation therapy to the right breast.Small left pleural effusion is unchanged. No pneumothorax. Stablecardiomediastinal silhouette. There is rotatory thoracolumbar scoliosis. Right mastectomy isunchanged. IMPRESSION: Unchanged small left pleural effusion. Improvement in reticular andnodular lung opacities. Aakash Don HOME AGENT IMG DIAGNOSTIC IMAG ING ORDERABLES * CT Chest Pulmonary Embolism with Contrast (04/15/2023 11:12 PM CDT) Anatomical Region Laterality Modality Chest Computed Tomogra phy 04/15/2023 11:1 8 PM CDT Impressions 04/16/2023 7:16 AM CDT 1. No pulmonary embolism identified. 2. Improved left pleural nodularity consistent with improving pleural metastasis. Small malignant left pleural effusion. 3. Nonspecific lung nodules measuring up to 4 mm. 4. Left prevascular lymph node has decreased in size, presumably metastatic. 5. Previously seen right lower lobe consolidation has resolved. Sequelae of radiation fibrosis in the right upper lobe. I personally reviewed these image(s) along with the resident's/fellow's interpretations, certify that if a procedure was performed I was physically present, and agree with the final report. Narrative 04/16/2023 7:16 AM CDT FULL RESULT: Examination: CT CHEST PULMONARY EMBOLISM W CONTRAST, 04/15/2023 11:12 PM Clinical History: 77-year-old female with breast cancer status post right mastectomy and chemoradiation presenting with Dyspnea, Pleuritic pain, Indication: Cancer complication or comorbidity assessment Comparison: Same day chest radiograph, PET/CT 11/05/2022 Technique: Spiral CT of the chest is performed using intravenous contrast. Findings: Lower neck: Normal. Axilla:Normal. Airway:Normal. Mediastinum:Left prevascular lymph node has decreased in size when compared to the PET/CT dated 11/05/2022 measuring 1.1 cm, previously 1.6 cm, image 43 series 5. Heart and great vessels:No pulmonary embolism visualized. No right heart strain. Trace pericardial effusion. Coronary artery calcifications are noted. Lungs and pleura:Stable fibrosis in the right apex and anterolateral right upper lobe consistent with sequelae of radiation therapy for breast cancer. A few pulmonary nodules are noted, for example a 4 mm right lower lobe pulmonary nodule (series 6, image 69), 3 mm subpleural right lower lobe pulmonary nodule (series 6, image 72). Subsegmental atelectasis in the left lower lobe. Previously seen right lower lobe consolidation has resolved. There is small left pleural effusion with adjacent compressive atelectasis. Previously seen hypermetabolic pleural nodules have decreased in size. For example, left apical pleural nodule measures 1.1 cm, previously 1.8 cm, image 25 series 5. Upper abdomen:2.4 x 2.2 cm hypoattenuating lesion in hepatic segment 7 is again noted. Status post cholecystectomy. Dilated extra and intrahepatic bile ducts with CBD measuring up to 1.5 cm. Osseous structures: Chronic compression deformity of T12 vertebral body with about 90% vertebral body height loss and gas within the collapsed vertebral body. Mild bowing of the superior endplate of T9 suspicious for mild compression deformity. Degenerative changes of the spine are noted. Unchanged sclerosis of right lateral 6th rib. Soft tissues:Status post right mastectomy. Procedure Note Rodger Renee MD - 04/16/2023 FULL RESULT: Examination: CT CHEST PULMONARY EMBOLISM W CONTRAST, 04/15/2023 11:12 PM Clinical History: 77-year-old female with breast cancer status post rightmastectomy and chemoradiation presenting with Dyspnea, Pleuritic pain, Indication: Cancer complication or comorbidity assessment Comparison: Same day chest radiograph, PET/CT 11/05/2022 Technique: Spiral CT of the chest is performed using intravenouscontrast. Findings: Lower neck: Normal. Axilla:Normal. Airway:Normal. Mediastinum:Left prevascular lymph node has decreased in size whencompared to the PET/CT dated 11/05/2022 measuring 1.1 cm, previously 1.6cm, image 43 series 5. Heart and great vessels:No pulmonary embolism visualized. No right heartstrain. Trace pericardial effusion. Coronary artery calcifications arenoted. Lungs and pleura:Stable fibrosis in the right apex and anterolateral rightupper lobe consistent with sequelae of radiation therapy for breastcancer. A few pulmonary nodules are noted, for example a 4 mm right lowerlobe pulmonary nodule (series 6, image 69), 3 mm subpleural right lowerlobe pulmonary nodule (series 6, image 72). Subsegmental atelectasis inthe left lower lobe. Previously seen right lower lobe consolidation hasresolved. There is small left pleural effusion with adjacent compressiveatelectasis. Previously seen hypermetabolic pleural nodules have decreasedin size. For example, left apical pleural nodule measures 1.1 cm,previously 1.8 cm, image 25 series 5. Upper abdomen:2.4 x 2.2 cm hypoattenuating lesion in hepatic segment 7 isagain noted. Status post cholecystectomy. Dilated extra and intrahepaticbile ducts with CBD measuring up to 1.5 cm. Osseous structures: Chronic compression deformity of T12 vertebral bodywith about 90% vertebral body height loss and gas within the collapsedvertebral body. Mild bowing of the superior endplate of T9 suspicious formild compression deformity. Degenerative changes of the spine are noted.Unchanged sclerosis of right lateral 6th rib. Soft tissues:Status post right mastectomy. IMPRESSION: 1. No pulmonary embolism identified. 2. Improved left pleural nodularity consistent with improving pleuralmetastasis. Small malignant left pleural effusion. 3. Nonspecific lung nodules measuring up to 4 mm. 4. Left prevascular lymph node has decreased in size, presumablymetastatic. 5. Previously seen right lower lobe consolidation has resolved. Sequelaeof radiation fibrosis in the right upper lobe. I personally reviewed these image(s) along with the resident's/fellow'sinterpretations, certify that if a procedure was performed I wasphysically present, and agree with the final report. Benito Hooper MD IMG CT ORDERABLES * CT Abdomen Pelvis with IV Contrast (04/15/2023 11:12 PM CDT) Anatomical Region Laterality Modality Abdomen, Pelvis Computed Tomogra phy 04/16/2023 5:30 AM CDT Impressions 04/16/2023 9:51 AM CDT 1. Decreased hepatic and stable retroperitoneal elida and osseous metastatic disease. 2. Ill-defined focal hypodensities of the kidneys may represent pyelonephritis. 3. Diffuse bladder wall thickening could be due to under distention or cystitis. Correlate with urinalysis, if clinically indicated. 4. Left pleural metastatic disease and small left pleural effusion better evaluated on CT chest. I personally reviewed these image(s) along with the resident's/fellow's interpretations, certify that if a procedure was performed I was physically present, and agree with the final report. Narrative 04/16/2023 9:51 AM CDT Examination: CT ABDOMEN PELVIS W CONTRAST, 04/15/2023 11:12 PM Clinical History: Metastatic breast cancer Indication: 77-year-old female with breast cancer RUQ pain Comparison: Abdominopelvic CT of 04/15/2023 and PET/CT 11/05/2022 Technique: CT of the abdomen and pelvis was performed with intravenous contrast. Findings: Lower thorax: Small left pleural effusion with adjacent compressive atelectasis. Redemonstrated pleural nodularities consistent with known pleural metastases. Please refer to the concurrently obtained chest CT of the same date for details above the diaphragm. Hepatobiliary: Decreased 2.2 x 1.8 cm hypoattenuating lesion in peripheral hepatic segment 7, which demonstrated increased activity on recent PET/CT on 11/05/2022 which measured 3.8 x 2.6 cm. There is dilatation of internal and extrahepatic bile ducts with the CBD measuring up to 1.5 cm likely secondary to cholecystectomy. Spleen: No splenomegaly or focal lesion. Pancreas: No pancreatic ductal dilatation. No masses. Gastrointestinal/bowel: No abnormal bowel dilatation or wall thickening. Scattered colonic diverticulosis without findings of acute diverticulitis. Kidney/adrenal glands: Ill-defined focal wedge-shaped hypodensities of the kidneys predominantly in the superior pole of the left kidney (series 5, image 70) and inferior pole of the right kidney. No nephrolithiasis or hydronephrosis. No adrenal masses Urinary bladder: Underdistended. There is diffuse bladder wall thickening Vascular: Severe atherosclerotic calcifications. Lymph nodes: Stable 0.8 x 1.2 cm left paraortic lymph node, previously FDG avid concerning for metastases. No pelvic lymphadenopathy. Peritoneum/pelvis: No ascites. Bones/soft tissues: Pathologic fracture of T12 vertebral body with about 90% height loss resulting in focal kyphosis and 0.8 cm retropulsion resulting in mild spinal canal narrowing. Small area of sclerosis in the T9 vertebral body likely metastatic disease given increased activity on prior PET/CT. Degenerative changes of the thoracal lumbar spine are noted. Procedure Note Anuja Weller MD - 04/16/2023 Examination: CT ABDOMEN PELVIS W CONTRAST, 04/15/2023 11:12 PM Clinical History: Metastatic breast cancer Indication: 77-year-old female with breast cancer RUQ pain Comparison: Abdominopelvic CT of 04/15/2023 and PET/CT 11/05/2022 Technique: CT of the abdomen and pelvis was performed with intravenouscontrast. Findings: Lower thorax: Small left pleural effusion with adjacent compressiveatelectasis. Redemonstrated pleural nodularities consistent with knownpleural metastases. Please refer to the concurrently obtained chest CT ofthe same date for details above the diaphragm. Hepatobiliary: Decreased 2.2 x 1.8 cm hypoattenuating lesion in peripheralhepatic segment 7, which demonstrated increased activity on recent PET/CTon 11/05/2022 which measured 3.8 x 2.6 cm. There is dilatation of internaland extrahepatic bile ducts with the CBD measuring up to 1.5 cm likelysecondary to cholecystectomy. Spleen: No splenomegaly or focal lesion. Pancreas: No pancreatic ductal dilatation. No masses. Gastrointestinal/bowel: No abnormal bowel dilatation or wall thickening.Scattered colonic diverticulosis without findings of acutediverticulitis. Kidney/adrenal glands: Ill-defined focal wedge-shaped hypodensities of thekidneys predominantly in the superior pole of the left kidney (series 5,image 70) and inferior pole of the right kidney. No nephrolithiasis orhydronephrosis. No adrenal masses Urinary bladder: Underdistended. There is diffuse bladder wallthickening Vascular: Severe atherosclerotic calcifications. Lymph nodes: Stable 0.8 x 1.2 cm left paraortic lymph node, previously FDGavid concerning for metastases. No pelvic lymphadenopathy. Peritoneum/pelvis: No ascites. Bones/soft tissues: Pathologic fracture of T12 vertebral body with about90% height loss resulting in focal kyphosis and 0.8 cm retropulsionresulting in mild spinal canal narrowing. Small area of sclerosis in theT9 vertebral body likely metastatic disease given increased activity onprior PET/CT. Degenerative changes of the thoracal lumbar spine arenoted. IMPRESSION: 1. Decreased hepatic and stable retroperitoneal elida and osseousmetastatic disease. 2. Ill-defined focal hypodensities of the kidneys may representpyelonephritis. 3. Diffuse bladder wall thickening could be due to under distention orcystitis. Correlate with urinalysis, if clinically indicated. 4. Left pleural metastatic disease and small left pleural effusion betterevaluated on CT chest. I personally reviewed these image(s) along with the resident's/fellow'sinterpretations, certify that if a procedure was performed I wasphysically present, and agree with the final report. Benito Hooper MD IMG CT ORDERABLES * X-ray Chest 1 View (04/15/2023 9:04 PM CDT) Only the most recent of2 resultswithin the time period is included. Anatomical Region Laterality Modality Chest Digital Radiogra phy 04/15/2023 9:29 PM CDT Impressions 04/15/2023 9:38 PM CDT Multicentric diffuse reticulonodular opacities throughout both lungs concerned about infection/pneumonitis, drug toxicity or tumor which is increased when compared to 02/02/2023.. Narrative 04/15/2023 9:38 PM CDT FULL RESULT: Examination: XR CHEST 1 VW, 04/15/2023 9:04 PM Clinical History: Breast cancer Indication: Shortness of Breath, COVID-19 Not Suspected Comparison: Chest radiography 02/02/2023 Technique: Anteroposterior radiograph of the chest. Findings: Increasing small reticulonodular opacities throughout both lungs when compared to 02/02/2023 concerned about increasing interstitial disease such as infection/pneumonitis, drug toxicity or tumor along with consolidation and effusion left lower lobe similar to 02/02/2023. Right apical medial segment consolidations again noted and slightly increasing consolidation compared to 02/02/2023. The consolidation in the left lower chest and pleural is similar to slightly decreased when compared to 02/02/2023. Left paramediastinal opacities extending in left lower lobe is present but not as prominent as in 02/02/2023. Noted is sclerotic images with anterior compression pathologic fracture of T12 the AP studies best seen on prior lateral imaging. There is no pneumothorax. Procedure Note Dina Treviño MD - 04/15/2023 FULL RESULT: Examination: XR CHEST 1 VW, 04/15/2023 9:04 PM Clinical History: Breast cancer Indication: Shortness of Breath, COVID-19 Not Suspected Comparison: Chest radiography 02/02/2023 Technique: Anteroposterior radiograph of the chest. Findings: Increasing small reticulonodular opacities throughout both lungs whencompared to 02/02/2023 concerned about increasing interstitial diseasesuch as infection/pneumonitis, drug toxicity or tumor along withconsolidation and effusion left lower lobe similar to 02/02/2023. Rightapical medial segment consolidations again noted and slightly increasingconsolidation compared to 02/02/2023. The consolidation in the left lowerchest and pleural is similar to slightly decreased when compared to02/02/2023. Left paramediastinal opacities extending in left lower lobe is present butnot as prominent as in 02/02/2023. Noted is sclerotic images with anteriorcompression pathologic fracture of T12 the AP studies best seen on priorlateral imaging. There is no pneumothorax. IMPRESSION: Multicentric diffuse reticulonodular opacities throughout both lungsconcerned about infection/pneumonitis, drug toxicity or tumor which isincreased when compared to 02/02/2023.. Shameka Carson MD IMG DIAGNOSTIC IMAG ING ORDERABLES * X-ray Abdomen AP (04/15/2023 9:04 PM CDT) Anatomical Region Laterality Modality Abdomen Digital Radiogra phy 04/15/2023 9:21 PM CDT Impressions 04/15/2023 9:24 PM CDT No evidence of bowel obstruction. Narrative 04/15/2023 9:24 PM CDT FULL RESULT: Examination: XR ABDOMEN AP on 04/15/2023 9:04 PM Clinical History: Breast cancer Indication: Abdominal Pain Comparison: PET/CT 11/05/2022 Technique: 1 AP view(s) of the abdomen acquired. Findings: There is blunting of the left costophrenic sulcus, in keeping with small left pleural effusion. The bowel gas pattern is nonobstructive. Degenerative changes are present of the spine. Procedure Note Elise Carvajal MD - 04/15/2023 FULL RESULT: Examination: XR ABDOMEN AP on 04/15/2023 9:04 PM Clinical History: Breast cancer Indication: Abdominal Pain Comparison: PET/CT 11/05/2022 Technique: 1 AP view(s) of the abdomen acquired. Findings: There is blunting of the left costophrenic sulcus, in keeping with smallleft pleural effusion. The bowel gas pattern is nonobstructive. Degenerative changes are present of the spine. IMPRESSION: No evidence of bowel obstruction. Shameka Carson MD IMG DIAGNOSTIC IMAG ING ORDERABLES * (ABNORMAL) POC VBG+Lac (04/15/2023 8:40 PM CDT) Pathologist [facility] POC VB pH 7.40 7.31 - 7.41 POC TELCOR POC VB pCO2 39(L) 41 - 51 mmHg POC [facility] POC VB pO2 29 mmHg POC [facility] POC VB TCO2 25 24 - 29 mEq/L POC [facility] POC VB Bicarb 24 23 - 28 mmol/L POC [facility] POC VB Base Ex 0 -2 - 3 mmol/L POC [facility] POC VB O2 Sat 55 % POC [facility] POC VB LAC 1.31 0.90 - 1.70 mmol/L POC [facility] Comment: Method description: The i-STAT is an analyzer used for in vitro quantification of various analytes in whole blood. The device uses a single disposable cartridge which contains microfabricated sensors, a calibration solution, fluidics system, and a waste chamber. Each test cartridge contains chemically sensitive biosensors on a silicon chip that are configured to perform specific tests. The microfabricated sensors measure analyte concentration by an electrochemical assay. POC Sample Type Venous POC [facility] POC Clean Dev Yes POC [facility] Performing Lab [facility] POC [facility] Comment:[facility], [address] [place] [address]; Personal Lines Underwriter: Sara Velazquez MD; Waived Point of Care Testing - Radha Greenwood MD Blood 04/15/2023 8:40 PM CDT 04/15/2023 8:40 PM CDT Benito Hooper MD POCT ORDERABLES - DE VICE POC TELCOR Unless otherwise noted, all lab tests performed by: Division of Pathology and Laboratory Medicine [address] [place] [address] * Clot Expiration Date (04/15/2023 6:07 PM CDT) Only the most recent of5 resultswithin the time period is included. Pathologist [facility] T & S Expiration 04/18/2023 [facility] Blood 04/15/2023 6:07 PM CDT 04/15/2023 7:43 PM CDT Shameka Carson MD BLOOD BANK TEST ORD NOAH Performing Organization Address City/[facility] Co de Phone Number [facility] Unless otherwise noted, all lab tests performed by: Division of Pathology and Laboratory Medicine [address] [place] [id number] * TMP Interpretation Antibody Screen Negative (04/15/2023 6:07 PM CDT) Only the most recent of5 resultswithin the time period is included. Pathologist [facility] TMP Auto Neg ABSC Interp At the present time, patient plasma shows no evidence of RBC alloantibodi es. [facility] Comment: MD Sofya MARIA [id number] Dictated by: MD Sofya [id number] Dictated Date/Time: 04.16.2023 8:30 AM CDT Transcribed Date/Time: 04.16.2023 8:30 AM CDT Electronically Signed By: MD Sofya MARIA [id number] on 04.16.2023 8:30 AM C Blood 04/15/2023 6:07 PM CDT 04/15/2023 7:43 PM CDT Shameka Carson MD BLOOD BANK TEST ORD NOAH Performing Organization Address City/[facility]/ZIP Co de Phone Number [facility] Unless otherwise noted, all lab tests performed by: Division of Pathology and Laboratory Medicine [address] [place] [id number] * aPTT (04/15/2023 6:07 PM CDT) Only the most recent of11 resultswithin the time period is included. Pathologist [facility] aPTT 29.0 24.1 - 35.5 second(s) [facility] Blood 04/15/2023 6:07 PM CDT 04/15/2023 6:20 PM CDT Shameka Carson MD LAB BLOOD ORDERABLE S [facility] Unless otherwise noted, all lab tests performed by: Division of Pathology and Laboratory Medicine [address] [place] [id number] * ABORh (04/15/2023 6:07 PM CDT) Only the most recent of5 resultswithin the time period is included. ABORh. O POS [place] MD [facility] Blood 04/15/2023 6:07 PM CDT 04/15/2023 7:43 PM CDT Shameka Carson MD BLOOD BANK TEST ORD ERABLES Performing Organization Address [facility]/ZIP Co de Phone Number [facility] Unless otherwise noted, all lab tests performed by: Division of Pathology and Laboratory Medicine [address] [place] [phone] * Prothrombin Time with INR (04/15/2023 6:07 PM CDT) Only the most recent of11 resultswithin the time period is included. Pathologist [facility] PT 13.8 11.9 - 14.5 second(s) [facility] INR 1.07 0.87 - 1.12 [place] MD [facility] Blood 04/15/2023 6:07 PM CDT 04/15/2023 6:20 PM CDT Shameka Carson MD LAB BLOOD ORDERABLE S [facility] Unless otherwise noted, all lab tests performed by: Division of Pathology and Laboratory Medicine [address] [place] [address] [id number] * Antibody Screen (04/15/2023 6:07 PM CDT) Only the most recent of5 resultswithin the time period is included. ABSC. Negative ABSC [facility] Blood 04/15/2023 6:07 PM CDT 04/15/2023 7:43 PM CDT Shameka Carson MD BLOOD BANK TEST ORD ERABLES [facility] Unless otherwise noted, all lab tests performed by: Division of Pathology and Laboratory Medicine [address] [place] [address] [id number] * Phosphorus Level (04/15/2023 6:07 PM CDT) Only the most recent of13 resultswithin the time period is included. Phosphorus 4.4 2.5 - 4.5 mg/dL [facility] Blood 04/15/2023 6:07 PM CDT 04/15/2023 6:33 PM CDT Shameka Carson MD LAB BLOOD ORDERABLE S Performing Organization Address [facility] Co de Phone Number [facility] Unless otherwise noted, all lab tests performed by: Division of Pathology and Laboratory Medicine [address] [place] [address] [id number] * (ABNORMAL) Magnesium Level (04/15/2023 6:07 PM CDT) Only the most recent of13 resultswithin the time period is included. Magnesium 2.8(H) 1.6 - 2.6 mg/dL [facility] Blood 04/15/2023 6:07 PM CDT 04/15/2023 6:33 PM CDT Shameka Carson MD LAB BLOOD ORDERABLE S Performing Organization Address City/[facility]/ZIP Co de Phone Number [facility] Unless otherwise noted, all lab tests performed by: Division of Pathology and Laboratory Medicine [address] [place] [address] [id number] * LDH (04/15/2023 6:07 PM CDT) LDH 171 135 - 214 U/L [facility] Comment:Results greater than 1651 U/L may not be reliable due to matrix effect with extended dilution as it exceeds the landscape photographer's recommended limit. Caution should be exercised when interpreting such values and done in conjunction with clinical context. Blood 04/15/2023 6:07 PM CDT 04/15/2023 6:33 PM CDT Shameka Carson MD LAB BLOOD ORDERABLE S Performing Organization Address [facility] de Phone Number [facility] Unless otherwise noted, all lab tests performed by: Division of Pathology and Laboratory Medicine [address] [place] [address] [id number] * FLOOR WORKER WELL SERVICE Videostroboscopy (02/04/2023 1:29 PM CDT) Narrative OLYMPUS - 02/04/2023 1:29 PM CDT Zaynab Jamison, PhD 05/05/2023 6:15 PM FLOOR WORKER [employer] Videostroboscopy Date/Time: 02/04/2023 1:29 PM Provider Information: Performed by: Zaynab Jamison, PhD Authorized by: Aakash Don NP Indication: Indications for procedure: abnormal symptom Abnormal symptom: dysphonia, dysphagia Anesthesia: Local anesthesia used?: local anesthesia used Anesthesia: topical application Local anesthetic: lidocaine spray Sedation: Patient sedated?: patient not sedated Specimen(s) Removed: Specimen(s) removed: no specimen collected Estimated Blood Loss: Estimated blood loss: none Complications: Complications: none Patient Disposition: Patient disposition: discharge to home 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 POC Glucose 205(H) 70 - 99 mg/dL POC [facility]EL[facility] Comment: Capillary blood samples, e.g. obtained by fingerstick, may have inaccurate results in patients with decreased peripheral blood flow. Method description: All results are measured using Electrochemistry test methodology. The glucose in the sample mixes with the reagents on the test strip. The reaction produces an electric current. The amount of current produced is proportional to the glucose concentration in the blood. PO Sample Type Capillary POC TELCOR Performing Lab [facility] POC TELCOR Comment:[facility] MD [facility], [address], [place] [address]; Personal Lines Underwriter: Sara Velazquez MD Blood 11/08/2022 12:1 9 PM BOILER OPERATORS SUPERVISOR 11/08/2022 12:19 PM BOILER OPERATORS SUPERVISOR Dinah Shelton MD POCT ORDERABLES - DE VICE POC TELCOR Unless otherwise notes, all lab tests performed by: Division of Pathology and Laboratory Medicine [address] [place] [address] [id number] * PETCT Subsequent Treatment Strategy (11/05/2022 7:38 AM BOILER OPERATORS SUPERVISOR) Anatomical Region Laterality Modality Whole Body Positron Emissio n Tomography (PET) 11/05/2022 5:42 PM BOILER OPERATORS SUPERVISOR Impressions 11/05/2022 6:11 PM BOILER OPERATORS SUPERVISOR 1. There has been interval development of groundglass opacities in the right upper and lower lungs likely related to pneumonia in this patient with neutropenia. 2. Persistent hypermetabolic adenopathies in the mediastinum and in bilateral pleura worse in the left side than the right side. 3. Hypermetabolic metastasis in the liver, retroperitoneal adenopathy and bones have slightly improved. Narrative 11/05/2022 6:11 PM BOILER OPERATORS SUPERVISOR FULL RESULT: Examination: FDG PET/CT, 11/05/2022 7:38 AM Clinical History: A 77-year-old female with breast cancer initially diagnosed in 1999 status post right mastectomy and chemoradiation to reach remission she was noted to have osseous metastasis and pathologic compression fracture at T12 in 06/2022 and has been treated with Ribociclib and Aromatase Inhibitor since 09/2022 Indication: Subsequent treatment strategy Comparison: F-18 FDG PET/CT of 09/17/2022. Technique: F-18 fluorodeoxyglucose (FDG) 9.8 mCi was administered intravenously via left arm. To allow for distribution and uptake of radiotracer, the patient was asked to rest quietly for approximately 60-90 minutes. PET/CT imaging was performed from the vertex down to the thighs. CT scanning was done for attenuation correction, image registration, and diagnosis with scan parameters optimized to minimize radiation exposure to the patient. SUV measurements are reported as maximum SUV based on body weight unless otherwise specified. Findings: Head and Neck: The brain, orbits, paranasal sinuses, oropharynx, salivary glands and thyroids are unremarkable. There is no cervical elida hypermetabolism. Chest: There has been interval development of hypermetabolic groundglass opacities in the right upper lobe and right lower lobe worrisome for pneumonitis versus less likely differential diagnosis of tumor involvement. Extensive hypermetabolic pleural nodules are identified in bilateral lungs with progression from prior study. For instance, a left upper medial pleural nodule of 1.6 x 2.3 cm and SUV of 15.1 on image 103 compared with 1.2 x 1.7 cm and SUV of 14.3 on prior image 60. The largest nodule is identified in the left lung base measuring 2.2 x 4.6 cm and SUV of 12.2 on image 161 compared with 2 x 3 cm and SUV of 13.5 on prior image 109. Persistent prevascular adenopathy is noted (1 x 2.5 cm and SUV of 4.1 on image 113 compared with 2 x 2.6 cm and SUV of 4.7 on prior image 68). Scattered atherosclerotic calcification of the aorta and coronary vessels is again identified Abdomen and Pelvis: Stable cholecystectomy changes are noted. Eighth 2.7 x 4.4 cm segment 7 hepatic lesion is noted with SUV of 10.0 on image 153 compared with 2.8 x 4.8 cm and SUV of 14.8 in prior image 103. Hypermetabolic retroperitoneal adenopathy are again identified with an index lesion in the left para-aortic station (0.5 x 1 cm and SUV of 6.9 on image 180 compared with 1 x 1.2 cm and SUV of 10.6 on prior image 125). Scattered atherosclerotic calcification of the descending aorta and branch vessels is again identified. The spleen, pancreas, adrenal glands and kidneys as well as the uterus are unremarkable. No hypermetabolic lymphadenopathy is seen in the iliac nor inguinal stations. Musculoskeletal: There has been resolution of hypermetabolic lesion in the right side of T12 on prior image 116. There has been resolution of a hypermetabolic focus in the posterior aspect of T9 vertebral body seen on prior image 94. Severe degenerative changes are again identified. No new osseous lesion is identified. Procedure Note Adrian Alcala MD - 11/05/2022 FULL RESULT: Examination: FDG PET/CT, 11/05/2022 7:38 AM Clinical History: A 77-year-old female with breast cancer initiallydiagnosed in 1999 status post right mastectomy and chemoradiation to reachremission she was noted to have osseous metastasis and pathologiccompression fracture at T12 in 06/2022 and has been treated with Ribocicliband Aromatase Inhibitor since 09/2022 Indication: Subsequent treatment strategy Comparison: F-18 FDG PET/CT of 09/17/2022. Technique: F-18 fluorodeoxyglucose (FDG) 9.8 mCi was administeredintravenously via left arm. To allow for distribution and uptake ofradiotracer, the patient was asked to rest quietly for approximately 60-90minutes. PET/CT imaging was performed from the vertex down to the thighs.CT scanning was done for attenuation correction, image registration, anddiagnosis with scan parameters optimized to minimize radiation exposure tothe patient. SUV measurements are reported as maximum SUV based on bodyweight unless otherwise specified. Findings: Head and Neck: The brain, orbits, paranasal sinuses, oropharynx, salivary glands andthyroids are unremarkable. There is no cervical elida hypermetabolism. Chest: There has been interval development of hypermetabolic groundglassopacities in the right upper lobe and right lower lobe worrisome forpneumonitis versus less likely differential diagnosis of tumorinvolvement. Extensive hypermetabolic pleural nodules are identified inbilateral lungs with progression from prior study. For instance, a leftupper medial pleural nodule of 1.6 x 2.3 cm and SUV of 15.1 on image 103compared with 1.2 x 1.7 cm and SUV of 14.3 on prior image 60. The largestnodule is identified in the left lung base measuring 2.2 x 4.6 cm and SUVof 12.2 on image 161 compared with 2 x 3 cm and SUV of 13.5 on prior [id number]. Persistent prevascular adenopathy is noted (1 x 2.5 cm and SUV of 4.1 onimage 113 compared with 2 x 2.6 cm and SUV of 4.7 on prior image 68). Scattered atherosclerotic calcification of the aorta and coronary vesselsis again identified Abdomen and Pelvis: Stable cholecystectomy changes are noted. Eighth 2.7 x 4.4 cm segment 7 hepatic lesion is noted with SUV of 10.0 onimage 153 compared with 2.8 x 4.8 cm and SUV of 14.8 in prior image 103. Hypermetabolic retroperitoneal adenopathy are again identified with anindex lesion in the left para-aortic station (0.5 x 1 cm and SUV of 6.9 onimage 180 compared with 1 x 1.2 cm and SUV of 10.6 on prior image 125). Scattered atherosclerotic calcification of the descending aorta and branchvessels is again identified. The spleen, pancreas, adrenal glands and kidneys as well as the uterus areunremarkable. No hypermetabolic lymphadenopathy is seen in the iliac noringuinal stations. Musculoskeletal: There has been resolution of hypermetabolic lesion in the right side ofT12 on prior image 116. There has been resolution of a hypermetabolicfocus in the posterior aspect of T9 vertebral body seen on prior image 94.Severe degenerative changes are again identified. No new osseous lesion isidentified. IMPRESSION: 1. There has been interval development of groundglass opacities in theright upper and lower lungs likely related to pneumonia in this patientwith neutropenia. 2. Persistent hypermetabolic adenopathies in the mediastinum and inbilateral pleura worse in the left side than the right side. 3. Hypermetabolic metastasis in the liver, retroperitoneal adenopathy andbones have slightly improved. Debora Steele APRN IMG PETCT ORDER BELKIS * Echocardiogram 2D Complete (11/03/2022 11:42 AM BOILER OPERATORS SUPERVISOR) 11/03/2022 10:3 5 AM BOILER OPERATORS SUPERVISOR Narrative ISCV - 11/03/2022 12:15 PM BOILER OPERATORS SUPERVISOR Echocardiographic Report Interpretation Summary A complete two-dimensional transthoracic echocardiogram was performed (2D, M- mode, Doppler and color flow Doppler). The study was technically adequate and no previous studies are available for comparison. Normal biventricular size and systolic function. LV ejection fraction (LVEF) is in the range of 65-70% (calculated by method of discs). There is no pericardial effusion. Unable to estimate RVSP due to lack of TR visualization. Left Ventricle: Normal left ventricular size and systolic function. There is normal left ventricular wall thickness. LV ejection fraction (LVEF) is in the range of 65-70% (calculated by method of discs). Paradoxical septal motion is noted. I WMSI = 1.00 % Normal = 100 Normal GLS Segments Size X - Cannot 2 - 1-2 small Interpret 1 - Normal Hypokinetic 3 - Akinetic 4 - Dyskinetic3- 5 moderate 5 - Aneurysmal 6-14 large 15-16 diffuse 3D imaginD volumes were not performed in this study. Cardiac Mechanics/Speckle Tracking Imaging: Strain Imaging was performed; GLPS avg = -19.7%. Normal global longitudinal peak systolic value. Diastology: Unable to evaluate due to technical limitations. Right Ventricle: The right ventricle is normal in size and function. Atria: Atria are normal in size. Lipomatous hypertrophy of the interatrial septum is noted. Mitral Valve: The mitral valve is grossly normal. There is trace mitral regurgitation. Tricuspid Valve: The tricuspid valve is not well visualized, but is grossly normal. Unable to estimate RVSP due to lack of TR visualization. Aortic Valve: The aortic valve is trileaflet. The aortic valve opens well. Pulmonic Valve: The pulmonic valve is not well visualized. Great Vessels: The aortic root is normal size. The inferior vena cava demonstrates normal size and normal respiratory variation. Pericardium/Pleural: There is no pericardial effusion. MMode/2D Measurements IVSd: 0.72 cm LVIDd: 3.7 cm LVIDs: 2.1 cm LVPWd: 1.1 cm FS: 42.7 % Ao root diam: 2.7 cm Ao root area: 5.9 cm2 LA dimension: 3.4 cm LVOT diam: 1.9 cm EDV(MOD-A4C): 60.9 ml ESV(MOD-A4C): 24.0 ml LVOT area: 2.9 cm2 EF(MOD-A4C): 60.5 % EDV(MOD-A2C): 56.0 ml ESV(MOD-A2C): 19.1 ml EDV(MOD-bp): 60.8 ml EF(MOD-A2C): 66.0 % ESV(MOD-bp): 21.3 ml EF(MOD-bp): 65.0 % LAV(MOD-A2C): 20.3 ml LAV(MOD-A4C): 34.3 ml EDV (MOD-bp) Index: 43.0 ml/m2 LAV(MOD-bp): 27.6 ml LAV(MOD-bp) Indexed: 19.5 ml/m2 ESV (MOD-bp) Index: 15.1 ml/m2 RWT: 0.56 cm TAPSE (>1.6): 2.0 cm Doppler Measurements MV E max yoel: 71.2 cm/sec MV V2 max: 137.4 cm/sec MV A max yoel: 120.2 cm/sec MV max P.6 mmHg MV E/A: 0.59 MV V2 mean: 81.3 cm/sec MV mean P.0 mmHg MV V2 VTI: 19.6 cm MVA(VTI): 2.6 cm2 MV dec time: 0.11 sec Ao V2 max: 95.1 cm/sec Ao max P.6 mmHg Ao V2 mean: 55.9 cm/sec Ao mean P.5 mmHg Ao V2 VTI: 20.6 cm PAUL(I,D): 2.5 cm2 PAUL(V,D): 2.8 cm2 LV V1 max P.4 mmHg SV(LVOT): 51.7 ml LV V1 mean P.2 mmHg LV V1 max: 92.5 cm/sec LV V1 mean: 48.9 cm/sec LV V1 VTI: 17.8 cm PA V2 max: 58.9 cm/sec PAUL Index (I,D): 1.8 PA max P.4 mmHg PA V2 mean: 32.8 cm/sec PA mean P.52 mmHg PA V2 VTI: 9.0 cm PAUL Index (V,D): 2.0 Dimensionless Index: 0.97 Procedure Note Carissa Gary MD - 11/03/2022 Echocardiographic Report Interpretation Summary A complete two-dimensional transthoracic echocardiogram was performed (2D,M- mode, Doppler and color flow Doppler). The study was technicallyadequate and no previous studies are available for comparison. Normal biventricular size and systolic function. LV ejection fraction (LVEF) is in the range of 65-70% (calculated bymethod of discs). There is no pericardial effusion. Unable to estimate RVSP due to lack of TR visualization. Left Ventricle: Normal left ventricular size and systolic function. There is normal leftventricular wall thickness. LV ejection fraction (LVEF) is in the range of65-70% (calculated by method of discs). Paradoxical septal motion isnoted. I WMSI = 1.00 % Normal = 100 Normal GLS Segments Size X - Cannot 2 - 1-2small Interpret 1 - Normal Hypokinetic 3 - Akinetic 4 - Dyskinetic3-5moderate 5 - Aneurysmal6-14 large 15-16 diffuse 3D imaginD volumes were not performed in this study. Cardiac Mechanics/Speckle Tracking Imaging: Strain Imaging was performed; GLPS avg = -19.7%. Normal globallongitudinal peak systolic value. Diastology: Unable to evaluate due to technical limitations. Right Ventricle: The right ventricle is normal in size and function. Atria: Atria are normal in size. Lipomatous hypertrophy of the interatrial septumis noted. Mitral Valve: The mitral valve is grossly normal. There is trace mitral regurgitation. Tricuspid Valve: The tricuspid valve is not well visualized, but is grossly normal. Unableto estimate RVSP due to lack of TR visualization. Aortic Valve: The aortic valve is trileaflet. The aortic valve opens well. Pulmonic Valve: The pulmonic valve is not well visualized. Great Vessels: The aortic root is normal size. The inferior vena cava demonstrates normalsize and normal respiratory variation. Pericardium/Pleural: There is no pericardial effusion. MMode/2D Measurements IVSd: 0.72 cmLVIDd: 3.7 cm LVIDs: 2.1 cm LVPWd: 1.1 cm FS: 42.7 %Ao root diam: 2.7 cm Ao root area: 5.9 cm2 LA dimension: 3.4 cm LVOT diam: 1.9 cmEDV(MOD-A4C): 60.9 ml ESV(MOD-A4C): 24.0 ml LVOT area: 2.9 cm2EF(MOD-A4C): 60.5 % EDV(MOD-A2C): 56.0 ml ESV(MOD-A2C): 19.1 mlEDV(MOD-bp): 60.8 ml EF(MOD-A2C): 66.0 %ESV(MOD-bp): 21.3 ml EF(MOD-bp): 65.0 % LAV(MOD-A2C): 20.3 ml LAV(MOD-A4C): 34.3 mlEDV (MOD-bp) Index: 43.0 ml/m2 LAV(MOD-bp): 27.6 ml LAV(MOD-bp) Indexed: 19.5 ml/m2 ESV (MOD-bp) Index: 15.1 ml/m2RWT: 0.56 cm TAPSE (>1.6): 2.0 cm Doppler Measurements MV E max yoel: 71.2 cm/secMV V2 max: 137.4 cm/sec MV A max yoel: 120.2 cm/secMV max P.6 mmHg MV E/A: 0.59MV V2 mean: 81.3 cm/sec MV mean P.0 mmHg MV V2 VTI: 19.6 cm MVA(VTI): 2.6 cm2 MV dec time: 0.11 secAo V2 max: 95.1 cm/sec Ao max P.6 mmHg Ao V2 mean: 55.9 cm/sec Ao mean P.5 mmHg Ao V2 VTI: 20.6 cm PAUL(I,D): 2.5 cm2 PAUL(V,D): 2.8 cm2 LV V1 max P.4 mmHgSV(LVOT): 51.7 ml LV V1 mean P.2 mmHg LV V1 max: 92.5 cm/sec LV V1 mean: 48.9 cm/sec LV V1 VTI: 17.8 cm PA V2 max: 58.9 cm/secAVA Index (I,D): 1.8 PA max P.4 mmHg PA V2 mean: 32.8 cm/sec PA mean P.52 mmHg PA V2 VTI: 9.0 cm PAUL Index (V,D): 2.0Dimensionless Index: 0.97 Micheal Billy DO CV ECHO ORDERABLES ISCV * Ammonia Level (11/03/2022 6:26 AM BOILER OPERATORS SUPERVISOR) Ammonia 19 11 - 51 mcmol/L [facility] Blood 11/03/2022 6:26 AM BOILER OPERATORS SUPERVISOR 11/03/2022 6:40 AM BOILER OPERATORS SUPERVISOR Dinah Shelton MD LAB BLOOD ORDERABLES Performing Organization Address City/[facility] Co de Phone Number [facility] Unless otherwise noted, all lab tests performed by: Division of Pathology and Laboratory Medicine [address] [place] [address] [phone] * (ABNORMAL) Calcium Ionized, Venous (11/02/2022 6:12 AM BOILER OPERATORS SUPERVISOR) Only the most recent of4 resultswithin the time period is included. V Ion Ca 0.89(L) 1.15 - 1.29 mmol/L [facility] Blood 11/02/2022 6:12 AM BOILER OPERATORS SUPERVISOR 11/02/2022 6:19 AM BOILER OPERATORS SUPERVISOR Micheal Billy DO LAB BLOOD ORDERABLES Performing Organization Address [facility] de Phone Number [facility] Unless otherwise noted, all lab tests performed by: Division of Pathology and Laboratory Medicine [address] [place] [address] [id number] * XR Foot 2 Views Bilateral (11/01/2022 8:31 PM BOILER OPERATORS SUPERVISOR) Anatomical Region Laterality Modality Foot, Extremity Digital Radiogra phy 11/01/2022 9:01 PM BOILER OPERATORS SUPERVISOR Impressions 11/01/2022 9:02 PM BOILER OPERATORS SUPERVISOR Left foot medial offset of midfoot relative to hindfoot appearing chronic. No underlying acute osseous abnormality. Right foot intact. Narrative 11/01/2022 9:02 PM BOILER OPERATORS SUPERVISOR FULL RESULT: Examination: XR FOOT 2 VW BILATERAL, 11/01/2022 8:31 PM. Clinical History: Acute respiratory failure with hypoxia Indication: Pain in both feet and ankles, both feet are turned inwards at her ankles Comparison: Baseline Technique: Bilateral feet 2 views. Findings: AP and lateral assessment of bilateral ankles demonstrate no fracture or focal osseous change. Left ankle demonstrates medial offset alignment of the midfoot relative to the hindfoot appearing chronic. No underlying acute osseous abnormality detected. Procedure Note Loi Leon MD - 11/01/2022 FULL RESULT: Examination: XR FOOT 2 VW BILATERAL, 11/01/2022 8:31 PM. Clinical History: Acute respiratory failure with hypoxia Indication: Pain in both feet and ankles, both feet are turned inwards ather ankles Comparison: Baseline Technique: Bilateral feet 2 views. Findings: AP and lateral assessment of bilateral ankles demonstrate nofracture or focal osseous change. Left ankle demonstrates medial offset alignment of the midfoot relative tothe hindfoot appearing chronic. No underlying acute osseous abnormalitydetected. IMPRESSION: Left foot medial offset of midfoot relative to hindfoot appearing chronic.No underlying acute osseous abnormality. Right foot intact. Dinah Shelton MD IMG DIAGNOSTIC IMAGI NG ORDERABLES * US Leg Venous Doppler Bilateral (10/31/2022 6:13 AM BOILER OPERATORS SUPERVISOR) Anatomical Region Laterality Modality Leg, Extremity Ultrasound 10/31/2022 7:27 AM BOILER OPERATORS SUPERVISOR Impressions 10/31/2022 9:07 AM BOILER OPERATORS SUPERVISOR Negative for deep venous thrombosis in the bilateral lower extremities. This is a preliminary Fellow's report, and has not been reviewed by an Attending Radiologist I personally reviewed these image(s) along with the resident's/fellow's interpretations, certify that if a procedure was performed I was physically present, and agree with the final report. Narrative 10/31/2022 9:07 AM BOILER OPERATORS SUPERVISOR Examination: US LEG VENOUS DOPPLER BILATERAL, 10/31/2022 6:13 AM Clinical History: Altered mental status Hypoxia Pneumonia Breast cancer Indication: Edema, rule out DVT Comparison: None available. Technique: Grayscale and color/spectral Doppler ultrasound of the bilateral lower extremity veins was performed. Findings: The bilateral common femoral, femoral, and popliteal veins demonstrate color flow, compressibility, and response to augmentation. The visualized posterior tibial, peroneal and anterior tibial veins are patent and compressible. Procedure Note Tommie Quinn MD - 10/31/2022 Examination: US LEG VENOUS DOPPLER BILATERAL, 10/31/2022 6:13 AM Clinical History: Altered mental status Hypoxia Pneumonia Breast cancer Indication: Edema, rule out DVT Comparison: None available. Technique: Grayscale and color/spectral Doppler ultrasound of thebilateral lower extremity veins was performed. Findings: The bilateral common femoral, femoral, and popliteal veins demonstratecolor flow, compressibility, and response to augmentation. The visualizedposterior tibial, peroneal and anterior tibial veins are patent andcompressible. IMPRESSION: Negative for deep venous thrombosis in the bilateral lower extremities. This is a preliminary Fellow's report, and has not been reviewed by anAttending Radiologist I personally reviewed these image(s) along with the resident's/fellow'sinterpretations, certify that if a procedure was performed I wasphysically present, and agree with the final report. Micheal TOLBERT US ORDERABLES * X-ray Chest 1 View Portable (10/30/2022 4:03 AM BOILER OPERATORS SUPERVISOR) Only the most recent of2 resultswithin the time period is included. Anatomical Region Laterality Modality Chest Digital Radiogra phy 10/30/2022 8:15 AM BOILER OPERATORS SUPERVISOR Impressions 10/30/2022 8:17 AM BOILER OPERATORS SUPERVISOR FINDINGS and IMPRESSION: 1. Pigtail pleural catheter left lung base. 2. Cardiomediastinal silhouette enlarged, stable. 3. Small left effusion and moderate asymmetric to the right scattered opacities, similar. No distinct pneumothorax. Narrative 10/30/2022 8:17 AM BOILER OPERATORS SUPERVISOR FULL RESULT: Examination: XR CHEST 1 VW PORTABLE, 10/30/2022 4:03 AM Clinical History: Altered mental status Hypoxia Pneumonia Breast cancer Indication: Infiltrate Comparison: 10/29/2022 Technique: Single portable anteroposterior radiograph of the chest. Procedure Note Florentino Briscoe MD - 10/30/2022 FULL RESULT: Examination: XR CHEST 1 VW PORTABLE, 10/30/2022 4:03 AM Clinical History: Altered mental status Hypoxia Pneumonia Breast cancer Indication: Infiltrate Comparison: 10/29/2022 Technique: Single portable anteroposterior radiograph of the chest. IMPRESSION: FINDINGS and IMPRESSION: 1. Pigtail pleural catheter left lung base. 2. Cardiomediastinal silhouette enlarged, stable. 3. Small left effusion and moderate asymmetric to the right scatteredopacities, similar. No distinct pneumothorax. Micheal TOLBERT DIAGNOSTIC IMAGI NG ORDERABLES * (ABNORMAL) ABG (10/30/2022 3:28 AM BOILER OPERATORS SUPERVISOR) Only the most recent of2 resultswithin the time period is included. pH Art 7.45 7.35 - 7.45 [facility] Comment:Results are correcte d for a body temp of 37C. pCO2 Art 31.3(L) 32.0 - 45.0 mmHg [facility] pO2 Art 184(H) 83 - 108 mmHg [facility] HCO3 Art 22 21 - 28 mmol/L [facility] Base Excess Art -2 -2 - 3 mmol/L [facility] O2 Sat Art 100(H) 95 - 99 % [facility] Blood 10/30/2022 3:28 AM BOILER OPERATORS SUPERVISOR 10/30/2022 3:37 AM BOILER OPERATORS SUPERVISOR Raghu INFANTE LAB BLOOD ORDERABL ES [facility] Unless otherwise noted, all lab tests performed by: Division of Pathology and Laboratory Medicine [address] [place] [address] [phone] * Body Fluid Differential (10/29/2022 4:30 PM BOILER OPERATORS SUPERVISOR) Pathologist [facility] Tot Cells BF 100 [place] [facility] Neut BF 2 0 - 25 % [place] [facility] Lymph BF 88 % [place] [facility] Comment:This assay has been validated for body fluids. No reference ranges have been established. Test results should be interpreted in context with the patient s clinical condition. Pathologist consult is available. Histiocyte BF 9 % [facility] Comment:This assay has been validated for body fluids. No reference ranges have been established. Test results should be interpreted in context with the patient s clinical condition. Pathologist consult is available. Other Cell BF 1 % [facility] Comment:This assay has been validated for body fluids. No reference ranges have been established. Test results should be interpreted in context with the patient s clinical condition. Pathologist consult is available. Pleural Fl 10/29/2022 4:30 PM BOILER OPERATORS SUPERVISOR 10/29/2022 5:55 PM BOILER OPERATORS SUPERVISOR Narrative [facility] - 10/29/2022 10:49 PM BOILER OPERATORS SUPERVISOR Tube number 2 to Hematology Raghu INFANTE BODY FLUIDS AND ST OOLS ORDERABLES Performing Organization Address [facility] de Phone Number [facility] Unless otherwise noted, all lab tests performed by: Division of Pathology and Laboratory Medicine [address] [place] [address] [phone] * Body Fluid Diff Path Review (10/29/2022 4:30 PM BOILER OPERATORS SUPERVISOR) Body Fluid Diff Interp RARE CLUSTERS OF ATYPICAL CELLS. SUGGEST TUMOR MARKER STUDIES. [facility] Comment: JAZZY RAZO MD, PhD - [id number] Dictated by: JAZZY RAZO MD, PhD - [id number] Dictated Date/Time: 10.30.2022 17:10 PM BOILER OPERATORS SUPERVISOR Transcribed Date/Time: 10.30.2022 17:10 PM BOILER OPERATORS SUPERVISOR Electronically Signed By: JAZZY RAZO MD, PhD - [id number] on 10.30.2022 17:10 PM Pleural Fl 10/29/2022 4:30 PM BOILER OPERATORS SUPERVISOR 10/29/2022 5:55 PM BOILER OPERATORS SUPERVISOR Narrative [facility] - 10/30/2022 5:10 PM BOILER OPERATORS SUPERVISOR Tube number 2 to Hematology Raghu INFANTE BODY FLUIDS AND ST OOLS ORDERABLES Performing Organization Address [facility] de Phone Number [facility] Unless otherwise noted, all lab tests performed by: Division of Pathology and Laboratory Medicine [address] [place] [address] [phone] * Fungus Culture w/ Smear (10/29/2022 4:30 PM BOILER OPERATORS SUPERVISOR) Pathologist [facility] Final Report No fungus isolated at 4 weeks. [facility] Path Review - Fungus Culture yield may be affected by sample quality, prior treatment, and transportation conditions. ... The results have been reviewed and electronically signed by Pathologist: Sam Brito MD, PhD #[id number] [facility] Calcofluor Stain No Fungi seen in direct smear Test performed by fluorescent stain methodology. [facility] Pleural Fl 10/29/2022 4:30 PM BOILER OPERATORS SUPERVISOR 10/29/2022 8:07 PM BOILER OPERATORS SUPERVISOR Narrative [facility] - 11/29/2022 8:22 PM BOILER OPERATORS SUPERVISOR Tube number 3 to Microbiology Cultures are held for 4 weeks before finalization. Raghu INFANTE MICROBIOLOGY - GEN ERAL ORDERABLES Performing Organization Address [facility] de Phone Number [facility] Unless otherwise noted, all lab tests performed by: Division of Pathology and Laboratory Medicine [address] [place] [address] [phone] * AFB Culture w/ Smear (10/29/2022 4:30 PM BOILER OPERATORS SUPERVISOR) Final Report No acid fast bacteria isolated at 8 weeks. [facility] Path Review - AFB Partial antibiotic treatment can render AFB culture negative. AFB culture has sensitivity of 90%. The results have been reviewed and electronically signed by Pathologist: EDY GEE MD #[id number] [facility] Acid Fast Stain Truant No Acid Fast Bacilli seen in direct smear [facility] Pleural Fl 10/29/2022 4:30 PM BOILER OPERATORS SUPERVISOR 10/29/2022 8:07 PM BOILER OPERATORS SUPERVISOR Narrative [facility] - 12/25/2022 6:04 PM BOILER OPERATORS SUPERVISOR Tube number 3 to Microbiology Cultures are held 8 weeks before finalization. Raghu INFANTE MICROBIOLOGY - GEN ERAL ORDERABLES Performing Organization Address [facility] de Phone Number [facility] Unless otherwise noted, all lab tests performed by: Division of Pathology and Laboratory Medicine [address] [place] [address] [phone] * Cholesterol Body Fluid (10/29/2022 4:30 PM BOILER OPERATORS SUPERVISOR) Chol BF 46 mg/dL [facility] Comment: This body fluid test has not been cleared or approved by the FDA. Its performance characteristics have been validated by our laboratory. No reference ranges have been established unless otherwise stated. Comparison of this result with the concentration in the blood (serum or plasma) is recommended. The test result must be interpreted in conjunction with the patient s clinical context. Chol BF Type Pleural fluid [facility] Pleural Fl 10/29/2022 4:30 PM BOILER OPERATORS SUPERVISOR 10/29/2022 5:55 PM BOILER OPERATORS SUPERVISOR Narrative [facility] - 10/29/2022 7:14 PM BOILER OPERATORS SUPERVISOR Tube number 1 to Chemistry Raghu INFANTE BODY FLUIDS AND ST OOLS ORDERABLES Performing Organization Address [facility] de Phone Number [facility] Unless otherwise noted, all lab tests performed by: Division of Pathology and Laboratory Medicine [address] [place] [address] [phone] * BF Culture (10/29/2022 4:30 PM BOILER OPERATORS SUPERVISOR) Final Report No growth [facility] Path Review Culture yield may be affected by sample quality, prior treatment, and transportation conditions. ... The results have been reviewed and electronically signed by Pathologist: Sam Brito MD, PhD #[id number] [facility] Gram Stain Report Many WBC's seen No organisms seen. [facility] Pleural Fl (Pleural Cavity) 10/29/2022 4:30 PM BOILER OPERATORS SUPERVISOR 10/29/2022 8:07 PM BOILER OPERATORS SUPERVISOR Narrative [facility] - 11/06/2022 8:00 AM BOILER OPERATORS SUPERVISOR Tube number 3 to Microbiology Raghu INFANTE MICROBIOLOGY - GEN ERAL ORDERABLES Performing Organization Address [facility] de Phone Number [facility] Unless otherwise noted, all lab tests performed by: Division of Pathology and Laboratory Medicine [address] [place] [address] [phone] * Cell Count BF (10/29/2022 4:30 PM BOILER OPERATORS SUPERVISOR) Type BF Pleural, left [facility] Appear BF CLEAR [facility] WBC BF 160 /mcL [facility] Comment:This assay has been validated for body fluids. No reference ranges have been established. Test results should be interpreted in context with the patient s clinical condition. Pathologist consult is available. RBC BF <2,000 /mcL [facility] Comment:This assay has been validated for body fluids. No reference ranges have been established. Test results should be interpreted in context with the patient s clinical condition. Pathologist consult is available. Pleural Fl 10/29/2022 4:30 PM BOILER OPERATORS SUPERVISOR 10/29/2022 5:55 PM BOILER OPERATORS SUPERVISOR Narrative [facility] - 10/29/2022 10:47 PM BOILER OPERATORS SUPERVISOR Tube number 2 to Hematology Renmarymercedez Yip PA BODY FLUIDS AND ST OOLS ORDERABLES Performing Organization Address City/[facility]/ZIP Co de Phone Number [facility] Unless otherwise noted, all lab tests performed by: Division of Pathology and Laboratory Medicine [address] [place] [address] [phone] * Triglyceride Body Fluid (10/29/2022 4:30 PM BOILER OPERATORS SUPERVISOR) Trig BF 33 mg/dL [facility] Comment: This body fluid test has not been cleared or approved by the FDA. Its performance characteristics have been validated by our laboratory. No reference ranges have been established unless otherwise stated. Comparison of this result with the concentration in the blood (serum or plasma) is recommended. The test result must be interpreted in conjunction with the patient s clinical context. Trig BF Type Pleural fluid [facility] Pleural Fl 10/29/2022 4:30 PM BOILER OPERATORS SUPERVISOR 10/29/2022 5:55 PM BOILER OPERATORS SUPERVISOR Narrative [facility] - 10/29/2022 7:14 PM BOILER OPERATORS SUPERVISOR Tube number 1 to Chemistry Derrellmercedez Prabhakar Phi INFANTE BODY FLUIDS AND ST OOLS ORDERABLES Performing Organization Address [facility] de Phone Number [facility] Unless otherwise noted, all lab tests performed by: Division of Pathology and Laboratory Medicine [address] [place] [address] [phone] * Protein BF (10/29/2022 4:30 PM BOILER OPERATORS SUPERVISOR) Protein BF 4.4 gm/dL [facility] Comment: This body fluid test has not been cleared or approved by the FDA. Its performance characteristics have been validated by our laboratory. No reference ranges have been established unless otherwise stated. Comparison of this result with the concentration in the blood (serum or plasma) is recommended. The test result must be interpreted in conjunction with the patient s clinical context. Prot BF Type Pleural fluid [facility] Pleural Fl 10/29/2022 4:30 PM BOILER OPERATORS SUPERVISOR 10/29/2022 5:55 PM BOILER OPERATORS SUPERVISOR Narrative [facility] - 10/29/2022 7:14 PM BOILER OPERATORS SUPERVISOR Tube number 1 to Chemistry Raghu INFANTE BODY FLUIDS AND ST OOLS ORDERABLES Performing Organization Address [facility] de Phone Number [facility] Unless otherwise noted, all lab tests performed by: Division of Pathology and Laboratory Medicine [address] [place] [address] [phone] * LDH, BF (10/29/2022 4:30 PM BOILER OPERATORS SUPERVISOR) LDH BF Type Pleural fluid [facility] LDH BF 144 U/L [facility] Comment: This body fluid test has not been cleared or approved by the FDA. Its performance characteristics have been validated by our laboratory. No reference ranges have been established unless otherwise stated. Comparison of this result with the concentration in the blood (serum or plasma) is recommended. The test result must be interpreted in conjunction with the patient s clinical context. Pleural Fl 10/29/2022 4:30 PM BOILER OPERATORS SUPERVISOR 10/29/2022 5:55 PM BOILER OPERATORS SUPERVISOR Narrative [facility] - 10/29/2022 7:27 PM BOILER OPERATORS SUPERVISOR Pleural fluid Raghu INFANTE BODY FLUIDS AND ST OOLS ORDERABLES Performing Organization Address [facility] de Phone Number [facility] Unless otherwise noted, all lab tests performed by: Division of Pathology and Laboratory Medicine [address] [place] [address] [phone] * Glucose Body Fluid (10/29/2022 4:30 PM BOILER OPERATORS SUPERVISOR) Glucose BF 186 mg/dL [facility] Comment: This body fluid test has not been cleared or approved by the FDA. Its performance characteristics have been validated by our laboratory. No reference ranges have been established unless otherwise stated. Comparison of this result with the concentration in the blood (serum or plasma) is recommended. The test result must be interpreted in conjunction with the patient s clinical context. Gluc BF Type Pleural fluid [facility] Pleural Fl 10/29/2022 4:30 PM BOILER OPERATORS SUPERVISOR 10/29/2022 5:55 PM BOILER OPERATORS SUPERVISOR Narrative [facility] - 10/29/2022 7:14 PM BOILER OPERATORS SUPERVISOR Tube number 1 to Chemistry Raghu INFANTE BODY FLUIDS AND ST OOLS ORDERABLES Performing Organization Address [facility] de Phone Number [facility] Unless otherwise noted, all lab tests performed by: Division of Pathology and Laboratory Medicine [address] [place] [address] [phone] * Amylase Level Body Fluid (10/29/2022 4:30 PM BOILER OPERATORS SUPERVISOR) Amylase BF 38 U/L [facility] Comment: This body fluid test has not been cleared or approved by the FDA. Its performance characteristics have been validated by our laboratory. No reference ranges have been established unless otherwise stated. Comparison of this result with the concentration in the blood (serum or plasma) is recommended. The test result must be interpreted in conjunction with the patient s clinical context. Amyl BF Type Pleural fluid [facility] Pleural Fl 10/29/2022 4:30 PM BOILER OPERATORS SUPERVISOR 10/29/2022 5:55 PM BOILER OPERATORS SUPERVISOR Narrative [facility] - 10/29/2022 7:14 PM BOILER OPERATORS SUPERVISOR Tube number 1 to Chemistry Raghu INAFNTE BODY FLUIDS AND ST OOLS ORDERABLES Performing Organization Address [facility] de Phone Number [facility] Unless otherwise noted, all lab tests performed by: Division of Pathology and Laboratory Medicine [address] [place] [address] [phone] * Confirm ABORh (10/29/2022 4:28 PM BOILER OPERATORS SUPERVISOR) ABORh Confirm. O POS [facility] Blood 10/29/2022 4:28 PM BOILER OPERATORS SUPERVISOR 10/29/2022 4:48 PM BOILER OPERATORS SUPERVISOR Micheal Billy DO BLOOD BANK TEST [facility] CANCER FLUSHING Unless otherwise noted, all lab tests performed by: Division of Pathology and Laboratory Medicine [address] [place] [address] [phone] * CHEST TUBE INSERTION (10/29/2022 12:00 PM BOILER OPERATORS SUPERVISOR) Dina Borrero MD - 10/29/2022 12:00 PM BOILER OPERATORS SUPERVISOR Dina Massey MD 10/29/2022 5:04 PM Chest tube insertion Laterality (if applicable): left Date/Time: 10/29/2022 12:00 PM Provider Information: Performed by: Dina Massey MD Authorized by: Dina Massey MD Patient Diagnosis: Pre-operative diagnosis: Acute respiratory failure with hypoxia Bilateral pneumonia Large left pleural effusion Post-operative diagnosis: unchanged Indication: Indications for procedure: to provide therapeutic benefit Anesthesia: Local anesthesia used?: local anesthesia used Local anesthetic: lidocaine 1% without epinephrine Anesthetic total (ml): 5 Sedation: Patient sedated?: patient not sedated Procedure Details: PROCEDURE: Chest tube placement EQUIPMENT USED: SafeTCentesis kit with 8Fr drain SITE: Left INDICATION: Pleural effusion RESTAURANT GENERAL MANAGER: DINA MASSEY MD PRE- AND POST -PROCEDURE DIAGNOSIS: Acute respiratory failure with hypoxia and pleural effusion MEDICATIONS USED: subcutaneous 1% lidocaine 5 cc CONSENT: Informed consent was obtained from the patient's family after explaining the risks and potential benefits of the procedure. PATIENT IDENTIFICATION: A time out was called and proper patient identification was carried out prior to the procedure. The institutional procedure safety checklist was accomplished prior to the procedure. PROCEDURE: Patient was placed in the seated position. The patient was prepped and draped in sterile manner, and after administration of 1% lidocaine subcutaneously, the SafeT needle was introduced with ultrasound guidance until pleural fluid was aspirated. The pleural fluid was straw colored. Approximately 30 cc were removed and sent for Gram's stain and culture and cytology. The chest tube was sutured in place with 2-0 Ethilon and dressed. It was connected to closed drainage system. CXR is pending Specimen(s) Removed: Specimen(s) removed: specimen collected Specimen(s): 30 cc pleural fluid Disposition of Specimen: Specimen disposition: microbiology and cytology Estimated Blood Loss: Estimated blood loss: none Complications: Complications: none Patient Disposition: Patient disposition: remain in current area Dina Massey MD PROCEDURE/MINOR SURG ICAL ORDERABLES * Troponin T (In-House) (10/29/2022 8:31 AM BOILER OPERATORS SUPERVISOR) [facility] Troponin T 18 <=18 ng/L [facility] Comment: < 19 ng/L Suggest retest at 3 to 6 hours later to rule out myocardial infarction >= 19 to <=52 ng/L Possible myocardial injury. Suggest retest at 3 hours. - a change of < 20 ng/L, retest at 6 hours - a change of >= 20 ng/L, suggestive of myocardial infarction > 52 ng/L Suggestive of myocardial infarction Critical value will be reported when cTnT is > 52 ng/L and only reported for the first in a series. Hemolyzed specimens with Hemolysis Index >100 (100 mg/dl or moderate hemolysis) may cause interferences and falsely low results. Blood 10/29/2022 8:31 AM BOILER OPERATORS SUPERVISOR 10/29/2022 9:01 AM BOILER OPERATORS SUPERVISOR Micheal Billy DO LAB BLOOD ORDERABLES [facility] Unless otherwise noted, all lab tests performed by: Division of Pathology and Laboratory Medicine [address] [place] [address] [phone] * (ABNORMAL) POC ABG (10/29/2022 7:40 AM BOILER OPERATORS SUPERVISOR) [facility] POC AB pH 7.21(L) 7.35 - 7.45 POC [facility] Comment: The i-STAT is an analyzer used for in vitro quantification of various analytes in whole blood. The device uses a single disposable cartridge which contains microfabricated sensors, a calibration solution, fluidics system, and a waste chamber. Each test cartridge contains chemically sensitive biosensors on a silicon chip that are configured to perform specific tests. The microfabricated sensors measure analyte concentration by an electrochemical assay. POC AB pCO2 47(H) 35 - 45 mmHg [facility]OC [facility] POC AB pO2 89 80 - 105 mmHg POC [facility] POC AB TCO2 20(L) 23 - 27 mEq/L [facility]OC [facility] POC AB Bicarb 19(L) 22 - 26 mmol/L POC [facility] POC AB Base Ex -8(L) -2 - 3 mmol/L POC [facility] POC AB O2 Sat 95 95 - 98 % POC [facility] POC FiO2 80 POC [facility] POC ABG Draw Site Rt Radial POC [facility] POC Filemon Test Not Performed POC [facility] POC Sample Type Arterial POC [facility] POC Clean Dev Yes POC [facility] Performing Lab [facility] POC [facility] Comment:[facility], [address] [place] [address] [phone]; Personal Lines Underwriter: Sara Velazquez MD Blood 10/29/2022 7:40 AM BOILER OPERATORS SUPERVISOR 10/29/2022 7:40 AM BOILER OPERATORS SUPERVISOR Micheal Billy DO POCT ORDERABLES - DE VICE Performing Organization Address [facility] de Phone Number POC [facility] Unless otherwise notes, all lab tests performed by: Division of Pathology and Laboratory Medicine [address] [place] [address] [phone] * EKG, 12-Lead (10/29/2022) Micheal Billy DO ECG ORDERABLES Performing Organization Address [facility] de Phone Number ANNALISE IECG * (ABNORMAL) Hemoglobin A1c (10/28/2022 5:34 AM BOILER OPERATORS SUPERVISOR) A1C 7.7(H) 4.3 - 5.6 % [facility] Comment: HbA1c values >=6.5% are diagnostic of diabetes mellitus. Diagnosis should be confirmed by repeat testing. Therapeutic Action suggested: >8.0% HbA1c; Goal of therapy: <7.0% HbA1c Blood 10/28/2022 5:34 AM BOILER OPERATORS SUPERVISOR 10/28/2022 6:35 AM BOILER OPERATORS SUPERVISOR Micheal Billy DO LAB BLOOD ORDERABLES Performing Organization Address [facility] de Phone Number [facility] Unless otherwise noted, all lab tests performed by: Division of Pathology and Laboratory Medicine [address] [place] [address] [phone] after 10/28/2022 Advance Directives Documents on File Type Date Recorded Patient Cartography Technician Expl anation Advance Directives: Medical Power of Community Product Specialist 11/09/2022 Medical Power of Att orney Advance Directives: Medical Power of Community Product Specialist 11/04/2022 Medical Power of Att orney Latest Code Status on File Code Status Date Activated Date Inactivated Comments DNR 10/29/2022 6:41 PM 11/08/2022 8:07 PM Question Answer Comments DNR obtained from: Legal Guardian or MPOA Code Status History Code Status Date Activated Date Inactivated Comments Full Code 10/27/2022 9:19 AM 10/29/2022 6:41 PM Care Teams Equity Trader Relationship Specialty Start Date End Date Sanjeev Mcgowan MD [address] [place] [address] [phone] PCP - General Breast Medical Oncology 08/28/22 Thong Segura MD [address] [place] [address] [phone] Consulting Physician Head and Neck Surgery 01/21/23
[2023-10-28] MEDS ORDERED: NA CHLORIDE 0.9% 500 ML ONE ×2 (11:26→18:41)
[2023-10-28 11:50] LABS: Absolute Lymphocytes (CBC) 0.4 K/uL (0.7-4.9); Lymphocytes % 2.4 % (15.3-44.8); MCV 96.6 fL (80-100); MPV 8.3 fL (7.6-11.3); Platelets 178 thou/uL (152-406); RBC Red Blood Cell Count 2.79 M/uL (3.86-4.86)
--- NOTE | 2023-10-28 11:54 | RAD REPORT ---
EXAM DESCRIPTION: RADChest Single View10/28/2023 11:45 am CLINICAL HISTORY: AMS COMPARISON: Chest Single View dated 10/17/2023; Chest Single View dated 10/16/2023; Chest Single Vie w dated 10/27/2022; Chest Single View dated 06/11/2021 TECHNIQUE: Portable AP view of the chest. FINDINGS: Stable left basilar pleuroparenchymal opacification as well as small region of opacificati on at the right apex. Decreased inspiratory effort somewhat limits evaluation. No pneumothorax or ri ght effusion. The cardiomediastinal contours are unremarkable. IMPRESSION: Stable findings concerning for pneumonia.
[2023-10-28 12:11] LABS: Albumin 2.1 g/dL (3.4-5.0); Bilirubin Direct 0.1 mg/dL (0-0.2); Bilirubin Indirect, Calculated 0.6 mg/dL (0.2-0.8); Bilirubin Total 0.7 mg/dL (0.2-1.0); Potassium 4.7 mEq/L (3.5-5.1); Protein, Total 5.6 g/dL (6.4-8.2)
[2023-10-28 12:14] LABS: Blood Morphology Comment NOT SEEN (NOT SEEN); Platelet Estimate ADEQ; White Blood Cell Scan OK (OK)
[2023-10-28 12:15] LABS: Protime INR 1.31
[2023-10-28 12:25] LABS: Troponin High Sensitivity 75.4 pg/mL (<58.9)
[2023-10-28] MEDS ORDERED: ASPIRIN 81 MG CHEWABLE TABLET ONE (13:32)
[2023-10-28] MEDS ORDERED: CEFTRIAXONE 1000 MG/VIAL ONE (14:02)
--- NOTE | 2023-10-28 14:13 | EDPHYS ---
Physician Documentation [facility] Name: Neris Nevarez Age: 78 yrs Sex: Female : 1945 Arrival Date: 10/28/2023 Time: 11:06 Bed 3 Private MD: ED Physician Loi Marin HPI: 10/28 17:18 This 78 yrs old Female presents to ER via EMS with complaints of Unresponsive. kdr 17:18 Patient was brought to the ED by EMS. Patient had been discharged from this facility kdr less than 24 hours ago. Patient had gone home and then been poorly responsive and subsequently taken to [place] [facility] where she was reevaluated and held for a few hours after which she was discharged again home. The states that he was unable to arouse the patient this morning when he tried to wake her. He subsequently called EMS. EMS reports that the patient was hypotensive on their arrival with a blood pressure of 58/30. They established an IV and administered 300 cc of normal saline at which time her new blood pressure yohana to approximately 160 112. EMS also reports that the patient was noted to have a blood glucose level of greater than 600 while at [place] last evening. The family states that the patient has been poorly or unresponsive. On my initial exam the patient does respond to questions and opens her eyes and interacts appropriately though slow to respond.. Onset: The symptoms/episode began/occurred this morning. Severity of symptoms: At their worst the symptoms were mild moderate. It is unknown whether or not the patient has had similar symptoms in the past. The patient has been recently seen by a physician: The patient has been recently been admitted at [facility], was discharged yesterday. Historical: - Allergies: 11:15 No Known Allergies; ll1 - PMHx: 11:15 Cancer; breast; Diabetes - NIDDM; Hypertensive disorder; Hypothyroidism; DVT; pleural ll1 effusion; Pneumonia; - PSHx: 11:15 section; GALLBLADDER; mastectomy; right; ll1 - Immunization history:: Adult Immunizations up to date. - Social history:: Smoking status: Patient denies any tobacco usage or history of. ROS: 17:18 Constitutional: Unable to obtain a reliable history secondary to the patient's altered kdr mental status. She is generally oriented to person and place but not how she arrived or any other extenuating factors. Eyes: Negative for injury, pain, redness, and discharge, Neck: Negative for injury, pain, and swelling, Cardiovascular: Negative for chest pain, palpitations, and edema, Respiratory: Negative for shortness of breath, cough, wheezing, and pleuritic chest pain, Abdomen/GI: Negative for abdominal pain, nausea, vomiting, diarrhea, and constipation, Back: Negative for injury and pain, : Negative for injury, bleeding, discharge, and swelling, MS/Extremity: Negative for injury and deformity, Skin: Negative for injury, rash, and discoloration, Psych: Negative for depression, anxiety, suicide ideation, homicidal ideation, and hallucinations, Allergy/Immunology: Negative for hives, rash, and allergies, Endocrine: Negative for neck swelling, polydipsia, polyuria, polyphagia, and marked weight changes, Hematologic/Lymphatic: Negative for swollen nodes, abnormal bleeding, and unusual bruising, 17:18 Neuro: Positive for altered mental status, weakness, Negative for headache, numbness, tremor, Exam: 17:18 Constitutional: This is a well developed, well nourished patient who is awake, alert, kdr and in no acute distress. Head/Face: Normocephalic, atraumatic. Eyes: Pupils equal round and reactive to light, extra-ocular motions intact. Lids and lashes normal. Conjunctiva and sclera are non-icteric and not injected. Cornea within normal limits. Periorbital areas with no swelling, redness, or edema. Neck: Trachea midline, no thyromegaly or masses palpated, and no cervical lymphadenopathy. Supple, full range of motion without nuchal rigidity, or vertebral point tenderness. No Meningismus. Chest/axilla: Normal chest wall appearance and motion. Nontender with no deformity. No lesions are appreciated. Cardiovascular: Regular rate and rhythm with a normal S1 and S2. No gallops, murmurs, or rubs. Normal PMI, no JVD. No pulse deficits. Respiratory: Lungs have equal breath sounds bilaterally, clear to auscultation and percussion. No rales, rhonchi or wheezes noted. No increased work of breathing, no retractions or nasal flaring. Abdomen/GI: Soft, non-tender, with normal bowel sounds. No distension or tympany. No guarding or rebound. No evidence of tenderness throughout. Back: No spinal tenderness. No costovertebral tenderness. Full range of motion. Skin: Warm, dry with normal turgor. Normal color with no rashes, no lesions, and no evidence of cellulitis. MS/ Extremity: Pulses equal, no cyanosis. Neurovascular intact. Full, normal range of motion. Neuro: Awake and alert, GCS 15, oriented to person, place, time, and situation. Cranial nerves II-XII grossly intact. Motor strength 5/5 in all extremities. Sensory grossly intact. Cerebellar exam normal. Normal gait. Psych: Awake, alert, with orientation to person, place and time. Behavior, mood, and affect are within normal limits. Vital Signs: 11:15 BP 71 / 40; Pulse 72; Resp 18; Temp 98.6; Pulse Ox 90% on R/A; Pain 0/10; ll1 11:39 BP 122 / 34; Pulse 76; hb 11:44 BP 115 / 42; Pulse 78; Resp 15 S; Pulse Ox 100% on 2 lpm NC; kc6 12:22 BP 109 / 36; Pulse 76; Pulse Ox 98% on 2 lpm NC; ll1 13:03 BP 106 / 35; Pulse 68; Resp 15; Pulse Ox 100% on 2 lpm NC; ll1 13:29 BP 113 / 41; Pulse 70; Pulse Ox 100% on 2 lpm NC; ll1 14:49 BP 95 / 37; Pulse 63; Resp 17; Pulse Ox 100% on 2 lpm NC; ll1 16:41 BP 99 / 37; Pulse 61; Resp 16; Pulse Ox 100% on 2 lpm NC; ll1 16:51 BP 98 / 40; Pulse 60; Pulse Ox 100% ; ll1 17:55 BP 96 / 43; Pulse 61; Resp 15; Temp 98.2; Pulse Ox 100% on 2 lpm NC; ll1 11:15 Pain Scale: Adult ll1 MDM: 14:13 Patient medically screened. kdr 17:21 Data reviewed: vital signs, nurses notes, lab test result(s). [facility] 10/28 11:19 Order name: Basic Metabolic Panel [facility] 10/28 11:19 Order name: CBC with Diff; Complete Time: 12:25 kdr 10/28 11:19 Order name: LFT's; Complete Time: 13:57 kdr 10/28 11:19 Order name: NT PRO-BNP; Complete Time: 13:57 kdr 10/28 11:19 Order name: Troponin HS; Complete Time: 13:57 kdr 10/28 11:19 Order name: Blood Culture Adult (2) kdr 10/28 11:19 Order name: CMP; Complete Time: 13:57 kdr 10/28 11:19 Order name: Lactate w/ 2H reflex if indic.; Complete Time: 12:25 kdr 10/28 11:19 Order name: Protime (+inr); Complete Time: 12:25 kdr 10/28 11:19 Order name: Ptt, Activated; Complete Time: 12:25 kdr 10/28 11:19 Order name: Urinalysis w/ reflexes kdr 10/28 11:53 Order name: CBC Smear Scan; Complete Time: 12:25 EDMS 10/28 13:57 Order name: Troponin High Sensitivity kdr 10/28 15:33 Order name: Basic Metabolic Panel EDMS 10/28 15:33 Order name: Basic Metabolic Panel EDMS 10/28 15:33 Order name: Basic Metabolic Panel EDMS 10/28 15:33 Order name: Basic Metabolic Panel EDMS 10/28 15:33 Order name: Basic Metabolic Panel EDMS 10/28 15:33 Order name: Basic Metabolic Panel EDMS 10/28 15:33 Order name: Basic Metabolic Panel EDMS 10/28 15:33 Order name: Basic Metabolic Panel EDMS 10/28 15:33 Order name: CBC with Automated Diff EDMS 10/28 15:33 Order name: CBC with Automated Diff EDMS 10/28 15:33 Order name: CBC with Automated Diff EDMS 10/28 15:33 Order name: CBC with Automated Diff EDMS 10/28 15:33 Order name: CBC with Automated Diff EDMS 10/28 15:33 Order name: CBC with Automated Diff EDMS 10/28 15:33 Order name: Urinalysis w/ reflexes EDMS 10/28 15:34 Order name: CBC with Automated Diff EDMS 10/28 15:34 Order name: CBC with Automated Diff EDMS 10/28 15:34 Order name: Magnesium EDMS 10/28 15:34 Order name: Magnesium EDMS 10/28 15:34 Order name: Magnesium EDMS 10/28 15:34 Order name: Magnesium EDMS 10/28 15:34 Order name: Magnesium EDMS 10/28 15:34 Order name: Magnesium EDMS 10/28 15:34 Order name: Magnesium EDMS 10/28 15:34 Order name: Magnesium EDMS 10/28 15:34 Order name: Phosphorus EDMS 10/28 15:34 Order name: Phosphorus EDMS 10/28 15:34 Order name: Phosphorus EDMS 10/28 15:34 Order name: Phosphorus EDMS 10/28 15:34 Order name: Phosphorus EDMS 10/28 15:34 Order name: Phosphorus EDMS 10/28 15:34 Order name: Phosphorus EDMS 10/28 15:34 Order name: Phosphorus EDMS 10/28 15:34 Order name: Troponin High Sensitivity EDMS 10/28 15:34 Order name: Troponin High Sensitivity EDMS 10/28 15:34 Order name: Troponin High Sensitivity EDMS 10/28 15:44 Order name: COVID-19/FLU A+B/RSV EDMS 10/28 11:19 Order name: XRAY Chest (1 view); Complete Time: 12:25 kdr 10/28 11:19 Order name: EKG; Complete Time: 11:20 kdr 10/28 15:44 Order name: CONS Physician Consult EDMI 10/28 11:19 Order name: Cardiac monitoring; Complete Time: 11:24 kdr 10/28 11:19 Order name: EKG - Nurse/Tech; Complete Time: 11:24 kdr 10/28 11:19 Order name: IV Saline Lock; Complete Time: 11:24 kdr 10/28 11:19 Order name: Labs collected and sent; Complete Time: 11:24 kdr 10/28 11:19 Order name: O2 Per Protocol; Complete Time: 11:24 kdr 10/28 11:19 Order name: O2 Sat Monitoring; Complete Time: 11:24 kdr 10/28 11:19 Order name: Accucheck; Complete Time: 11:24 kdr 10/28 11:19 Order name: IV Saline Lock - Large Bore; Complete Time: 11:24 kdr 10/28 11:19 Order name: Vital Signs; Complete Time: : kdr 10/28 11:54 Order name: Labs - recollect needed: please fill to the line . blue top; Complete Time: bc6 12:07 Administered Medications: 11:34 Drug: NS 0.9% IV 500 ml IV at bolus once Route: IV; Rate: bolus; Site: left antecubital;kc6 13:37 Follow up: Response: No adverse reaction; IV Status: Completed infusion; IV Intake: ll1 500ml 13:37 Drug: Aspirin PO Chewable Tablet 324 mg PO once; 81 mg tablets x 4 Route: PO; ll1 17:57 Follow up: Response: No adverse reaction ll1 14:11 Drug: Rocephin - Rocephin (cefTRIAXone) IVPB 1 grams IVPB once over 30 mins; (mix in 50 ll1 mL NS) Route: IVPB; Infused Over: 30 mins; Site: left antecubital; 15:10 Follow up: Response: No adverse reaction; IV Status: Completed infusion; IV Intake: [id number] Disposition Summary: 10/28/23 14:13 Hospitalization Ordered Notes: Hospitalization Status: Inpatient Admission kdr Provider: Cezar Mcgowan Condition: Fair kdr Problem: an acute exacerbation kdr Symptoms: have improved kdr Bed/Room Type: Standard kdr Location: Intensive Care Unit(10/28/23 16:29) [facility] Room Assignment: 1-(10/28/23 16:29) [facility] Diagnosis - Altered mental status, unspecified kdr - Subsequent non-ST elevation (NSTEMI) myocardial infarction kdr - Hypotension, unspecified kdr Forms: - Medication Reconciliation Form kdr - SBAR form kdr - Leadership Thank You Letter kdr Signatures: Dispatcher [employer] EDLoi Gilmore MD MD kdr Willis Adames RN RN ll1 Reva Yip RN RN kc6 Chelsea Bell 6 Corrections: (The following items were deleted from the chart) 11:15 11:15 PMHx: Cancer; breast; ll1 ll1 11:15 11:15 PMHx: Cancer; breast; ll1 ll1 11:15 11:15 PMHx: Cancer; breast; ll1 ll1 11:15 11:15 PMHx: Cancer; breast; ll1 ll1 11:15 11:15 PMHx: Cancer; breast; ll1 ll1 11:15 11:15 PMHx: Cancer; breast; ll1 ll1 11:15 11:15 PMHx: Cancer; breast; ll1 ll1 11:15 11:15 PMHx: Cancer; breast; ll1 ll1 11:15 11:15 PMHx: Cancer; breast; ll1 ll1 11:15 11:15 PMHx: Cancer; breast; ll1 ll1 : 14:13 Telemetry/MedSurg (Inpatient) kdr bc6 16: 14:13 kdr bc6
--- NOTE | 2023-10-28 14:13 | ER ---
Nurse's Notes [facility] Name: Neris Nevarez Age: 78 yrs Sex: Female : 1945 Arrival Date: 10/28/2023 Time: 11:06 Bed 3 Private MD: Diagnosis: Altered mental status, unspecified;Subsequent non-ST elevation (NSTEMI) myocardial infarction;Hypotension, unspecified Presentation: 10/28 11:15 Chief complaint: Patient states: Unresponsive this morning. EMS states: Last known well ll1 16 hour ago. BP 58/30's. 20 G L wrist BP 106/33 upon arrival to ED. Released early this morning from [facility] for high blood sugar. Fingerstick 182. Coronavirus screen: Client denies travel out of the [place] in the last 14 days. At this time, the client does not indicate any symptoms associated with coronavirus-19. Ebola Screen: Patient denies travel to an Ebola-affected area in the 21 days before illness onset. Initial Sepsis Screen: Does the patient meet any 2 criteria? No. Patient's initial sepsis screen is negative. Does the patient have a suspected source of infection? No. Patient's initial sepsis screen is negative. Risk Assessment: Do you want to hurt yourself or someone else? Patient reports no desire to harm self or others. Onset of symptoms was October 28, 2023. 11:15 Method Of Arrival: EMS ll1 11:15 Acuity: YOLIE 2 ll1 Triage Assessment: 11:16 General: Appears uncomfortable, Behavior is cooperative, appropriate for age, listless. ll1 Pain: Denies pain. Neuro: Reports weakness. Historical: - Allergies: 11:15 No Known Allergies; ll1 - PMHx: 11:15 Cancer; breast; Diabetes - NIDDM; Hypertensive disorder; Hypothyroidism; DVT; pleural ll1 effusion; Pneumonia; - PSHx: 11:15 section; GALLBLADDER; mastectomy; right; ll1 - Immunization history:: Adult Immunizations up to date. - Social history:: Smoking status: Patient denies any tobacco usage or history of. Screenin:03 [facility] ED Fall Risk Assessment (Adult) Score/Fall Risk Level 3 or more points = High ll1 Risk Oriented to surroundings, Maintained a safe environment, Educated pt \T\ family on fall prevention, incl call for assistance when getting out of bed, Used ambulatory aids as needed (educated on \T\ assisted with), Offered frequent toileting (1:1 observation), Utilized family, sitter, or virtual deputy prosecuting attorney as indicated. Abuse screen: Denies threats or abuse. Nutritional screening: No deficits noted. Tuberculosis screening: No symptoms or risk factors identified. Assessment: 11:39 Reassessment: No changes from previously documented assessment. Patient and/or family hb updated on plan of care and expected duration. Pain level reassessed. Patient is alert, oriented x 3, equal unlabored respirations, skin warm/dry/pink. 12:05 Reassessment: No changes from previously documented assessment. Patient and/or family ll1 updated on plan of care and expected duration. Pain level reassessed. 13:03 Reassessment: No changes from previously documented assessment. Patient and/or family ll1 updated on plan of care and expected duration. Pain level reassessed. 13:30 Reassessment: No changes from previously documented assessment. Patient and/or family ll1 updated on plan of care and expected duration. Pain level reassessed. 14:11 Reassessment: No changes from previously documented assessment. BP still low when taken ll1 out of Trendelenburg 101/37. Put back into trendelenburg. 14:49 Reassessment: No changes from previously documented assessment. Patient and/or family ll1 updated on plan of care and expected duration. Pain level reassessed. 16:50 Reassessment: No changes from previously documented assessment. Report given to marcia Ibarra ASSISTANT COUNSEL. Bed being cleaned. 17:55 Reassessment: No changes from previously documented assessment. Patient and/or family ll1 updated on plan of care and expected duration. Pain level reassessed. Vital Signs: 11:15 BP 71 / 40; Pulse 72; Resp 18; Temp 98.6; Pulse Ox 90% on R/A; Pain 0/10; ll1 11:39 BP 122 / 34; Pulse 76; hb 11:44 BP 115 / 42; Pulse 78; Resp 15 S; Pulse Ox 100% on 2 lpm NC; kc6 12:22 BP 109 / 36; Pulse 76; Pulse Ox 98% on 2 lpm NC; ll1 13:03 BP 106 / 35; Pulse 68; Resp 15; Pulse Ox 100% on 2 lpm NC; ll1 13:29 BP 113 / 41; Pulse 70; Pulse Ox 100% on 2 lpm NC; ll1 14:49 BP 95 / 37; Pulse 63; Resp 17; Pulse Ox 100% on 2 lpm NC; ll1 16:41 BP 99 / 37; Pulse 61; Resp 16; Pulse Ox 100% on 2 lpm NC; ll1 16:51 BP 98 / 40; Pulse 60; Pulse Ox 100% ; ll1 17:55 BP 96 / 43; Pulse 61; Resp 15; Temp 98.2; Pulse Ox 100% on 2 lpm NC; ll1 11:15 Pain Scale: Adult ll1 ED Course: 11:09 Patient arrived in ED. mr 11:12 Loi Marin MD is Attending Physician. kdr 11:17 Triage completed. ll1 11:17 Arm band placed on Patient placed in an exam room, on a stretcher. ll1 11:17 Provided Education on: ER procedures and process. ll1 11:18 Maintain EMS IV. Dressing intact. Site clean \T\ dry. Gauge \T\ site: 20 G L wrist. ll 1 11:20 Inserted saline lock: 20 gauge in left antecubital area, using aseptic technique. Blood ll1 collected. 11:40 Kandace Good, RN is Primary Nurse. hb 11:40 Willis Adames, JOHN is Primary Nurse. ll1 11:41 Loi Marin MD is Attending Physician. kdr 11:44 Blood Culture Adult (2) Sent. ll1 11:46 XRAY Chest (1 view) In Process Unspecified. EDMS 12:25 Notified ED physician of a critical lab result(s). troponin 65.4. hb 13:04 Patient has correct armband on for positive identification. Bed in low position. Call ll1 light in reach. Client placed on continuous cardiac and pulse oximetry monitoring. NIBP monitoring applied. equipment monitor phototypesetting on. 14:12 Cezar Mcgowan MD is Hospitalizing Provider. kdr 15:03 Notified ED physician of a critical lab result(s). TROP 101.7. hb 17:56 No provider procedures requiring assistance completed. Patient admitted, IV remains in ll1 place. Administered Medications: 11:34 Drug: NS 0.9% IV 500 ml IV at bolus once Route: IV; Rate: bolus; Site: left antecubital;kc6 13:37 Follow up: Response: No adverse reaction; IV Status: Completed infusion; IV Intake: ll1 500ml 13:37 Drug: Aspirin PO Chewable Tablet 324 mg PO once; 81 mg tablets x 4 Route: PO; ll1 17:57 Follow up: Response: No adverse reaction ll1 14:11 Drug: Rocephin - Rocephin (cefTRIAXone) IVPB 1 grams IVPB once over 30 mins; (mix in 50 ll1 mL NS) Route: IVPB; Infused Over: 30 mins; Site: left antecubital; 15:10 Follow up: Response: No adverse reaction; IV Status: Completed infusion; IV Intake: [id number] Medication: 13:04 VIS not applicable for this client. ll1 Intake: 13:37 IV: 500ml; Total: 500ml. ll1 15:10 IV: 15ml; Total: 515ml. ll1 Outcome: 14:13 Decision to Hospitalize by Provider. kdr 17:56 Admitted to ICU accompanied by nurse, via stretcher, room ICU 1, with chart, Report ll1 called to JOHN Ibarra 17:56 Condition: stable 17:56 Instructed on the need for admit, 17:57 Patient left the ED. ll1 Signatures: Dispatcher [employer] EDMS Loi Marin MD MD kdr Rivera, Mary, Reg Reg mr Kandace Good, Willis Shahid RN, RN RN llReva Reynoso RN RN kc6 Corrections: (The following items were deleted from the chart) 11:15 11:15 PMHx: Cancer; breast; ll1 ll1 11:15 11:15 PMHx: Cancer; breast; ll1 ll1 11:15 11:15 PMHx: Cancer; breast; ll1 ll1 11:15 11:15 PMHx: Cancer; breast; ll1 ll1 11:15 11:15 PMHx: Cancer; breast; ll1 ll1 11:15 11:15 PMHx: Cancer; breast; ll1 ll1 11:15 11:15 PMHx: Cancer; breast; ll1 ll1 11:15 11:15 PMHx: Cancer; breast; ll1 ll1 11:15 11:15 PMHx: Cancer; breast; ll1 ll1 11:15 11:15 PMHx: Cancer; breast; ll1 ll1
[2023-10-28] MEDS ORDERED: ACETAMINOPHEN 325 MG TABLET PO PRN (15:24)
[2023-10-28] MEDS ORDERED: ACETAMINOPHEN 500 MG TAB PO PRN (15:24)
[2023-10-28] MEDS ORDERED: Levofloxacin 750mg IV 750 MG/150 ML BAG IV SCH (16:00)
--- NOTE | 2023-10-28 16:02 | P.HP ---
Certification for Inpatient Patient admitted to: Inpatient With expected LOS: >2 Midnights Patient will require the following post-hospital care: None Practitioner: I am a practitioner with admitting privileges, knowledge of patient current condition, hospital course, and medical plan of care. Services: Services provided to patient in accordance with Admission requirements found in Title 42 Section 412.3 of the Code of Federal Regulations <Telma Styles - Last Filed: 10/28/23 15:51> Patient History Date of Service: 10/28/23 Reason for admission: Septic PNA History of Present Illness: Neris Nevarez is a 78 year old with Pmhx breast cancer, Diabetes-NIDDM, Hypertensive disorder, pleural effusion, pneumonia presents to the ED with AMS, unresponsiveness this morning. Patient's family reports, she was at the [place] ED last night with hyperglycemia, being treated with insulin and stabilized. She was discharged around 3 AM and assumed she was tired. Later on in the day they realize she was not waking up and they called the ambulance.when the EMS arrived, her blood glucose was normal but blood pressure was consi derably low at 58/30 heart rate 60. When the ambulance arrived she had a blood pressure reading of 58/30 heart rate 69 and started IV fluids, the following blood pressure was 72/42 heart rate 65. Upon arrival to the ED, her initial vitals were BP 71/40, Pulse 72, Resp 18, Temp 98.6, Pulse Ox 90% on R/A. Oxygen increased to 100% on 2 L nasal cannula. Chest x-ray was performed reporting "Stable left basilar pleuroparenchymal opacification as well as small region of opacification at the right apex. Decreased inspiratory effort somewhat limits evaluation. No pneumothorax or right effusion. The cardiomediastinal contours are unremarkable." Laboratory evaluations show WBC 18.5, H&H 9/27, sodium 137, potassium 4.7, BUN creatinine 48/1.79, GFR 29, serum blood glucose 176. Neris Nevarez will be admitted to the hospitalis service in the ICU for further treatment of pneumonia. Of note, Neris was admitted 10/16/2023 through 10/19/2023, being treated for pneumonia and discharged with p.o. azithromycin and cefdinir of which she was compliant, today would have been her last dose. - Past Medical/Surgical History Diabetic: Yes -: NEUROPATHY -: HTN -: HYPERLIPEDEMIA -: DM TYPE II -: HYPOTHROIDISM -: KIDNEY STONES -: BREAST CANCER -: BLOOD CLOTS-both legs -: Right MASTECTOMY -: JASMINA -: X3 -: cataract s/x - Family History Mother -: Heart disease, Diabetes Father -: Hypertension - Social History Alcohol use: Yes CD- Drugs: No Caffeine use: Yes <Telma Styles - Last Filed: 10/28/23 15:51> Date of Service: 10/28/23 <Cezar Mcgowan - Last Filed: 10/28/23 21:01> Allergies No Known Allergies Allergy (Verified 02/24/19 23:23) Home Medications: RX: Aspirin [Aspir-Low] 1 tab PO DAILY 02/24/19 RX: Atorvastatin Calcium 1 tab PO DAILY 02/24/19 RX: Glimepiride 2 tab PO BID PRN 02/24/19 RX: Levothyroxine Sodium 1 tab PO DAILY 02/24/19 RX: Losartan Potassium 2 tab PO DAILY 02/24/19 RX: carvediloL [Carvedilol] 1 tab PO BID 02/24/19 RX: Pantoprazole [Protonix Tab*] 40 mg PO DAILYAC #30 tab 02/25/19 RX: Furosemide 20 mg PO DAILY 10/16/23 RX: Gabapentin 1 cap PO BEDTIME 10/16/23 RX: Letrozole [Femara*] 1 tab PO BEDTIME 10/16/23 RX: Meloxicam 7.5 mg PO DAILY PRN 10/16/23 RX: OLANZapine [Olanzapine] 2.5 mg PO BEDTIME 10/16/23 RX: Orphenadrine Citrate [Orphenadrine Citrate ER] 1 tab PO BEDTIME 10/16/23 RX: Sennosides [Senna Lax] 2 tab PO DAILY PRN 10/16/23 RX: Tramadol HCl [Ultram] 1 tab PO DAILY PRN 10/16/23 Azithromycin Tab [Zithromax*] 250 mg PO DAILY #5 tab 10/18/23 Cefdinir [Cefdinir*] 300 mg PO BID #14 cap 10/18/23 RX: Albuterol Neb [Proventil 0.083% Neb Soln] 2.5 mg NEB [id number] PRN #60 amp 10/18/23 RX: Ipratropium Neb [Atrovent*] 0.5 mg NEB [id number] #60 amp 10/18/23 RX: Nebulizer 1 each DAILY #1 ea 10/18/23 RX: Nebulizer Accessories [Aeroneb Go] 1 each DAILY #1 ea 10/18/23 RX: predniSONE [Prednisone*] 20 mg PO BID #11 tab 10/18/23 Review of Systems General: Chills, Weakness, Malaise Gastrointestinal: Nausea <Telma Styles - Last Filed: 10/28/23 15:51> Physical Examination - Physical Exam General: Alert, Oriented x3 HEENT: Atraumatic, Normocephalic, PERRLA Neck: Supple, 2+ carotid pulse no bruit, JVD not distended Respiratory: Clear to auscultation bilaterally, Normal air movement Cardiovascular: No edema, Normal pulses, Regular rate/rhythm, Normal S1 S2 Capillary refill: <2 Seconds Gastrointestinal: Normal bowel sounds, Soft and benign Musculoskeletal: No clubbing, No swelling, No contractures Integumentary: No rashes, No breakdown, No significant lesion Neurological: Normal speech, Normal strength at 5/5 x4 extr, Normal tone - Studies Laboratory Data (last 24 hrs) 10/28/23 10/28/23 10/28/23 12:00 11:30 11:30 WBC 18.50 H Hgb 9.0 L Hct 27.0 L Plt Count 178 PT 14.3 H INR 1.31 APTT 25.2 Sodium 137 Potassium 4.7 BUN 48 H Creatinine 1.79 H Glucose 176 H Total Bilirubin 0.7 AST 19 ALT 17 Alkaline Phosphatase 57 <Telma Styles - Last Filed: 10/28/23 15:51> - Studies Laboratory Data (last 24 hrs) 10/28/23 10/28/23 10/28/23 12:00 11:30 11:30 WBC 18.50 H Hgb 9.0 L Hct 27.0 L Plt Count 178 PT 14.3 H INR 1.31 APTT 25.2 Sodium 137 Potassium 4.7 BUN 48 H Creatinine 1.79 H Glucose 176 H Total Bilirubin 0.7 AST 19 ALT 17 Alkaline Phosphatase 57 <Cezar Mcgowan - Last Filed: 10/28/23 21:01> Assessment and Plan - Plan Assessment and plan Acute Pneumonia failed outpatient treatment Hypotension in a patient with history of hypertension Leukocytosis Lactic acid 1.2, WBC 18.5, BP BP 71 / 40, Pulse 72 Chest x-ray was performed reporting "Stable left basilar pleuroparenchymal opacification as well as small region of opacification at the right apex. Decreased inspiratory effort somewhat limits evaluation. No pneumothorax or right effusion. The cardiomediastinal contours are unremarkable." IV fluids given by EMS and 500 mL of NS given by ED In trandelenburg position in ED Failed azithromycin/cefdinir IV Vanc and Levaquin Flu/COVID/RSV pending Consult ID, Dr. Conn Hold home antihypertensive NSTEMI Consult cardiology- recommendations appreciated [id number], serial pending EKG RBBB, sinus rhythm with short MN, No obvious ST segment changes, HR74 Aspirin 324 given in the ED, will continue aspirin 81 daily Lipid panel pending Chest xray as above STACY in the patient with kidney cancer BUN/creatinine 48/1.79, GFR 29 Consult nephrology History of kidney cancer Anemia of chronic disease H&H 07/28 Monitor in a.m. lab Transfuse Hgb<7 Diabetes- NIDDM Serum glucose 176 Prior ED visit with glucose > 600, treated with insulin drip then discharged (10/27/23) Accu-Chek with sliding scale insulin History of hypothyroidism Restart home medication TSH/T4 pending DVT PPx heparin DO NOT INTUBATE LOS 2 to 3 days Discharge Plan: Home Plan to discharge in: 72 Hours - Advance Directives Does patient have a Living Will: No Does patient have a Durable POA for Healthcare: Yes Time Spent Managing Pts Care (In Minutes): 55 <Telma Styles - Last Filed: 10/28/23 15:51> Physician Review: Patient Assessed, Agree with Above Assessment and Plan Physician Review Additional Text: Agree with plan. She is being admitted for pneumonia with hypotension. She does not meet SIRS criteria. Will treat with IV fluids and IV antibiotics. Will monitor in ICU due to hypotension. Cardiology and Infectious Diseases consulted - recs appreciated. Cezar Mcgowan M.D. <Cezar Mcgowan - Last Filed: 10/28/23 21:01>
[2023-10-28] MEDS: INSULIN REGULAR (HUMAN) 100 UNIT/ML SQ SCH ×2 (16:30→20:54)
[2023-10-28] MEDS ORDERED: VANCOMYCIN 1 GM in NA CHLORIDE 0.9% 250 ML IVPB ONE (17:00)
[2023-10-28] MEDS: HEPARIN 5000 UNIT/ML 1 ML VIAL SQ SCH (17:00)
[2023-10-28] MEDS ORDERED: NA CHLORIDE 0.9% 500 ML IV ONE (18:40)
[2023-10-28] MEDS ORDERED: INFLUENZA VACCINE (for 6+ mo) 0.5 ML DOSE IMVAC ONE (20:00)
[2023-10-28] MEDS ORDERED: PNEUMOCOCCAL VACCINE 0.5 ML IMVAC ONE (20:00)
[2023-10-28] MEDS ORDERED: NA CHLORIDE 0.9% 1,000 ML ONE (20:50)
[2023-10-28] MEDS ORDERED: Levofloxacin 750mg IV 750 MG/150 ML BAG IV ONE (20:50)
[2023-10-28] MEDS: NA CHLORIDE 0.9% 1,000 ML IV SCH (20:53)
[2023-10-28] MEDS: Levofloxacin 750mg IV 750 MG/150 ML BAG IV SCH (20:54)
[2023-10-28] MEDS ORDERED: VANCOMYCIN 1.25 GM in NA CHLORIDE 0.9% 250 ML IVPB ONE (21:00)
[2023-10-29] MEDS: HEPARIN 5000 UNIT/ML 1 ML VIAL SQ SCH ×3 (01:53→16:22)
[2023-10-29 04:02] LABS: Absolute Lymphocytes (CBC) 0.7 K/uL (0.7-4.9); Hematocrit 24.5 % (36.0-45.0); Lymphocytes % 6.5 % (15.3-44.8); MCV 97.1 fL (80-100); MPV 8.3 fL (7.6-11.3); Platelets 162 thou/uL (152-406); RBC Red Blood Cell Count 2.52 M/uL (3.86-4.86)
[2023-10-29 04:31] LABS: Anisocytosis 1+; Blood Morphology Comment NOTED (NOT SEEN); Platelet Estimate ADEQ
[2023-10-29] MEDS ORDERED: NA CHLORIDE 0.9% 1,000 ML ONE (04:41)
[2023-10-29 04:42] LABS: Magnesium 1.9 mg/dL (1.6-2.4); Phosphorus 3.5 mg/dL (2.5-4.9); Potassium 3.8 mEq/L (3.5-5.1); Thyroid Stimulating Hormone 3.24 uIU/mL (0.358-3.740)
[2023-10-29] MEDS: NA CHLORIDE 0.9% 1,000 ML IV SCH (04:43)
[2023-10-29] MEDS ORDERED: Ringers Lactate 1,000 ML IV ONE (06:15)
--- NOTE | 2023-10-29 06:53 | P.PN ---
Subjective Date of Service: 10/29/23 <Cezar Mcgowan - Last Filed: 10/29/23 16:49> Date of Service: 10/30/23 Chief Complaint: Septic PNA Resting in bed, oriented x 3, at bedside, vital signs stable reported hypoglycemia incident during the night. She reports was seen in the emergency room and given insulin at a previous emergency room. vital signes improved Physical Exam General: Alert, Oriented x3 HEENT: Atraumatic, Normocephalic, PERRLA Neck: Supple, 2+ carotid pulse no bruit, JVD not distended Respiratory: Clear to auscultation bilaterally, Normal air movement Cardiovascular: No edema, Normal pulses, Regular rate/rhythm, Normal S1 S2 Capillary refill: <2 Seconds Gastrointestinal: Normal bowel sounds, Soft and benign Musculoskeletal: No clubbing, No swelling, No contractures Integumentary: No rashes, No breakdown, No significant lesion Neurological: Normal speech, Normal strength at 5/5 x4 extr, Normal tone <Merle Lynn - Last Filed: 10/30/23 06:52> Review of Systems per HPI <Merle Lynn - Last Filed: 10/30/23 06:52> Physical Examination - Vital Signs Temperature: 97.2 F Blood Pressure: 149/48 Pulse: 61 Respirations: 14 Pulse Ox (%): 100 - Studies Laboratory Data (last 24 hrs) 10/28/23 10/28/23 10/28/23 12:00 11:30 11:30 WBC 18.50 H Hgb 9.0 L Hct 27.0 L Plt Count 178 PT 14.3 H INR 1.31 APTT 25.2 Sodium 137 Potassium 4.7 BUN 48 H Creatinine 1.79 H Glucose 176 H Total Bilirubin 0.7 AST 19 ALT 17 Alkaline Phosphatase 57 <ShaneMerle Last Filed: 10/30/23 06:52> Assessment And Plan Physician Review: Patient Assessed, Agree with Above Assessment and Plan Physician Review Additional Text: She has had significant improvement compared to yesterday. Her blood pressure has improved on IV antibiotics. Her renal function has improved. She has developed hypoglycemia, which has been corrected. Will downgrade her out of the ICU today. Cezar Mcgowan M.D. <Cezar Mcgowan - Last Filed: 10/29/23 16:49> - Plan Acute Pneumonia failed outpatient treatment Severe sepsis with hypotensive shock secondary to pneumonia Leukocytosis Lactic acid 1.2, WBC 18.5, BP BP 71 / 40, Pulse 72 Chest x-ray was performed reporting "Stable left basilar pleuroparenchymal opacification as well as small region of opacification at the right apex. Decreased inspiratory effort somewhat limits evaluation. No pneumothorax or right effusion. The cardiomediastinal contours are unremarkable." IV fluids given by EMS and 500 mL of NS given by ED In trandelenburg position in ED Failed azithromycin/cefdinir IV Vanc and Levaquin Flu/COVID/RSV pending Consult ID, Dr. Conn ID note Blood cultures 10/28: pending - leukocytosis resolved - afebrile - Currently on Levofloxacin and Vancomycin (started 10/28) Seen and evaluated in ICU, can transfer to the floor today Stage IV renal carcinoma On p.o. chemotherapy NSTEMI Consult cardiology- recommendations appreciated [id number]/101.7, serial pending EKG RBBB, sinus rhythm with short MI, No obvious ST segment changes, HR74 Aspirin 324 given in the ED, will continue aspirin 81 daily Lipid panel pending Chest xray as above Troponin 75.4->101.7->120.8,-> 79.6 trending down BNP 6358-> STACY in the patient with kidney cancer BUN/creatinine 48/1.79, GFR 29 Consult nephrology History of kidney cancer Anemia of chronic disease H&H 07/28->repeat 8.2 Monitor in a.m. lab Transfuse Hgb<7 Hypoglycemic episode Hypoglycemia protocol initiated, is not on insulin at home. Blood glucose 47, repeat 79, repeat 83 Diabetes- NIDDM Serum glucose 176 Prior ED visit with glucose > 600, treated with insulin drip then discharged (10/27/23) Accu-Chek with sliding scale insulin History of hypothyroidism Restart home medication TSH/T4 pending DVT PPx heparin DO NOT INTUBATE LOS 2 to 3 days Discharge Plan: Home - Code Status/Comfort Care Code Status: Full Code Critical Care: Yes Time Spent Managing PTS Care (In Minutes): 65 <Merle Lynn - Last Filed: 10/30/23 06:52>
[2023-10-29 06:58] LABS: Urine Bacteria <20 /HPF (<20); Urine Bilirubin NEGATIVE (Negative); Urine Blood Negative (Negative); Urine Clarity Turbid (Clear); Urine Color Light-Yellow (Yellow); Urine Glucose 2+ (Negative); Urine Mucus Slight /HPF (None Seen); Urine Protein NEGATIVE (Negative); Urine RBC <5 /HPF (None Seen); Urine Urobilinogen Normal (Normal)
[2023-10-29] MEDS ORDERED: Ringers Lactate 1,000 ML IV SCH ×2 (07:00→11:37)
[2023-10-29] MEDS: INSULIN REGULAR (HUMAN) 100 UNIT/ML SQ SCH ×4 (07:30→20:38)
--- NOTE | 2023-10-29 08:30 | P.CNS ---
Date of Consult: 10/29/23 Reason for Consult: failed outpatient antibiotic therapy Chief Complaint: Septic PNA History of Present Illness: Patient is a 78 yo female with a past medical history of diabetes mellitus type II, hypertension, hyperlipidemia, breast cancer with metastasis to lung, kidney who was brought to the hospital via EMS after being found unresponsive at home. She was found to be hypotensive on arrival with improvement following IV fluid administration. WBC 18.5, lactic acid WNL, troponin I 75.4 -> 101.7, proBNP 6358, cardiology was consulted. Blood cultures obtained and was started on empiric antibiotics levaquin and vancomycin. Infectious disease was consulted. Allergies No Known Allergies Allergy (Verified 02/24/19 23:23) Home medications list reviewed: Yes Home Medications: Aspirin [Aspir-Low] 1 tab PO DAILY 02/24/19 Atorvastatin Calcium 1 tab PO DAILY 02/24/19 Glimepiride 2 tab PO BID PRN 02/24/19 Levothyroxine Sodium 1 tab PO DAILY 02/24/19 Losartan Potassium 2 tab PO DAILY 02/24/19 carvediloL [Carvedilol] 1 tab PO BID 02/24/19 Pantoprazole [Protonix Tab*] 40 mg PO DAILYAC #30 tab 02/25/19 Furosemide 20 mg PO DAILY 10/16/23 Gabapentin 1 cap PO BEDTIME 10/16/23 Letrozole [Femara*] 1 tab PO BEDTIME 10/16/23 Meloxicam 7.5 mg PO DAILY PRN 10/16/23 OLANZapine [Olanzapine] 2.5 mg PO BEDTIME 10/16/23 Orphenadrine Citrate [Orphenadrine Citrate ER] 1 tab PO BEDTIME 10/16/23 Sennosides [Senna Lax] 2 tab PO DAILY PRN 10/16/23 Tramadol HCl [Ultram] 1 tab PO DAILY PRN 10/16/23 Albuterol Neb [Proventil 0.083% Neb Soln] 2.5 mg NEB [id number] PRN #60 amp 10/18/23 Azithromycin Tab [Zithromax*] 250 mg PO DAILY #5 tab 10/18/23 Cefdinir [Cefdinir*] 300 mg PO BID #14 cap 10/18/23 Ipratropium Neb [Atrovent*] 0.5 mg NEB [id number] #60 amp 10/18/23 Nebulizer 1 each MC DAILY #1 ea 10/18/23 Nebulizer Accessories [Aeroneb Go] 1 each MC DAILY #1 ea 10/18/23 predniSONE [Prednisone*] 20 mg PO BID #11 tab 10/18/23 - Past Medical/Surgical History Diabetic: Yes -: NEUROPATHY -: HTN -: HYPERLIPEDEMIA -: DM TYPE II -: HYPOTHROIDISM -: KIDNEY STONES -: BREAST CANCER -: BLOOD CLOTS-both legs -: double pne x2 -: Right MASTECTOMY -: JASMINA -: X3 -: cataract s/x - Family History Mother Medical History: Heart disease, Diabetes Father Medical History: Hypertension Notes: colon cancer - Social History Alcohol use: Yes CD- Drugs: No Caffeine use: Yes Place of Residence: Home Review of Systems Unremarkable Physical Examination Temp Pulse Resp BP Pulse Ox 97.2 F 61 14 149/48 H 100 10/29/23 06:52 10/29/23 06:52 10/29/23 06:52 10/29/23 06:52 10/29/23 06:52 General: Alert, In no apparent distress, Oriented x3 HEENT: Atraumatic, Normocephalic Neck: Supple, JVD not distended Respiratory: Normal air movement, Diminished, Other (unlabored respirations on room air) Cardiovascular: No edema, Normal pulses, Regular rate/rhythm Gastrointestinal: Normal bowel sounds, Soft and benign, Non-distended Musculoskeletal: No clubbing, No swelling Integumentary: No rashes, No breakdown Neurological: Normal speech, Normal tone, Normal affect Laboratory Data - Reviewed Microbiology Data - Reviewed Imagings Data: - Reviewed Conclusions/Impression: Problem List Sepsis secondary to suspected pneumonia Diabetes mellitus type II Acute Kidney Injury Hypotension Hyperlipidemia Breast cancer with metastasis to kidneys, lungs Bacterial Pneumonia - Patient was recently hospitalized 10/16-10/18 for pneumonia, completed course of cefdinir and azithromycin. - Denies any cough, shortness of breath, chest pain. No nausea, vomiting or diarrhea. Denies any pain at this time. - XR Chest 10/28: " Stable findings concerning for pneumonia. " - Blood cultures 10/28: pending - lactic acid 1.2 - leukocytosis with left shift - afebrile - Currently on Levofloxacin and Vancomycin (started 10/28) Hypotension secondary to hypovolemia - patient was found unresponsive at home, improved with IV fluids given by EMS - STACY: nephrology consulted ProBNP 6358 toponin I 79.6 Cardiology consulted Recommendations - Pneumonia: Continue antibiotic therapy for 5 days. Follow up with blood culture results. If no growth 48 hours, discontinue Vancomycin. Continue with Levaquin x 5 days. - Strict blood glucose monitoring/control - Renally dose medications - WBC and fever trends Case discussed with Alfa Hammond
[2023-10-29] MEDS ORDERED: PNEUMOCOCCAL VACCINE 0.5 ML IMVAC ONE ×2 (10:13→10:30)
[2023-10-29] MEDS ORDERED: INFLUENZA VACCINE (for 6+ mo) 0.5 ML DOSE IMVAC ONE (10:30)
--- NOTE | 2023-10-29 11:39 | P.CNS ---
Date of Consult: 10/29/23 Reason for Consult: STACY Requesting Physician: Merle Lynn Chief Complaint: Septic PNA History of Present Illness: Pt is a older 78 year female with PMHx of reported Stage IV/metastatic breast cancer, chronic Type II DM with labile BG, hypertensive disorder, who yesterday presented to the ED with AMS. Patient was found by EMS to be hypotensive and remained hypotensive initially in the ER but has since responded to intravascular vol repletion and is now no longer hypotensive. Pt admitted at this hospital earlier in the mo with PNA and was discharged on Abx. Pt denies current CP, cough, N/V/D. Allergies No Known Allergies Allergy (Verified 02/24/19 23:23) Home Medications: Aspirin [Aspir-Low] 1 tab PO DAILY 02/24/19 Atorvastatin Calcium 1 tab PO DAILY 02/24/19 Glimepiride 2 tab PO BID PRN 02/24/19 Levothyroxine Sodium 1 tab PO DAILY 02/24/19 Losartan Potassium 2 tab PO DAILY 02/24/19 carvediloL [Carvedilol] 1 tab PO BID 02/24/19 Pantoprazole [Protonix Tab*] 40 mg PO DAILYAC #30 tab 02/25/19 Furosemide 20 mg PO DAILY 10/16/23 Gabapentin 1 cap PO BEDTIME 10/16/23 Letrozole [Femara*] 1 tab PO BEDTIME 10/16/23 Meloxicam 7.5 mg PO DAILY PRN 10/16/23 OLANZapine [Olanzapine] 2.5 mg PO BEDTIME 10/16/23 Orphenadrine Citrate [Orphenadrine Citrate ER] 1 tab PO BEDTIME 10/16/23 Sennosides [Senna Lax] 2 tab PO DAILY PRN 10/16/23 Tramadol HCl [Ultram] 1 tab PO DAILY PRN 10/16/23 Albuterol Neb [Proventil 0.083% Neb Soln] 2.5 mg NEB [id number] PRN #60 amp 10/18/23 Azithromycin Tab [Zithromax*] 250 mg PO DAILY #5 tab 10/18/23 Cefdinir [Cefdinir*] 300 mg PO BID #14 cap 10/18/23 Ipratropium Neb [Atrovent*] 0.5 mg NEB [id number] #60 amp 10/18/23 Nebulizer 1 each MC DAILY #1 ea 10/18/23 Nebulizer Accessories [Aeroneb Go] 1 each MC DAILY #1 ea 10/18/23 predniSONE [Prednisone*] 20 mg PO BID #11 tab 10/18/23 - Past Medical/Surgical History Diabetic: Yes -: NEUROPATHY -: HTN -: HYPERLIPEDEMIA -: DM TYPE II -: HYPOTHROIDISM -: KIDNEY STONES -: BREAST CANCER -: BLOOD CLOTS-both legs -: double pne x2 -: Right MASTECTOMY -: JASMINA -: X3 -: cataract s/x - Family History Mother Medical History: Heart disease, Diabetes Father Medical History: Hypertension Notes: colon cancer - Social History Alcohol use: Yes CD- Drugs: No Caffeine use: Yes Place of Residence: Home Review of Systems General: Weakness, As per HPI Eyes: Unremarkable ENT: Unremarkable Respiratory: As per HPI Cardiovascular: As per HPI Gastrointestinal: Nausea Genitourinary: Unremarkable Musculoskeletal: Other (Hx of compression fracture) Integumentary: Unremarkable Neurological: Confusion, As per HPI Physical Examination Temp Pulse Resp BP Pulse Ox 97.2 F 61 14 149/48 H 100 10/29/23 11:19 10/29/23 11:19 10/29/23 11:19 10/29/23 11:19 10/29/23 11:19 General: Alert, In no apparent distress, Cachectic HEENT: Atraumatic, Normocephalic Neck: Supple Respiratory: Normal air movement, Diminished Cardiovascular: No edema, Regular rate/rhythm, Normal S1 S2 Gastrointestinal: Soft and benign, Non-distended, No tenderness, No guarding Musculoskeletal: No tenderness, No warmth Integumentary: No rashes Neurological: Normal speech, Normal tone, Normal affect Laboratory Data (last 24 hrs) 10/28/23 10/28/23 10/28/23 12:00 11:30 11:30 WBC 18.50 H Hgb 9.0 L Hct 27.0 L Plt Count 178 PT 14.3 H INR 1.31 APTT 25.2 Sodium 137 Potassium 4.7 BUN 48 H Creatinine 1.79 H Glucose 176 H Total Bilirubin 0.7 AST 19 ALT 17 Alkaline Phosphatase 57 Conclusions/Impression: A/P) 1. Stage 1 STACY 2nd to hypotension, recent use of ARB/diuretics/NSAIDs possibly, on underlying CKD Stage III potentially given elevated Cr levels last year. Prior ARF episode several years ago in 2. Renal imaging does not show any obstructive uropathy or renal parenchymal lesions 3. Hypotension 2nd to hypovolemia, meds +/- early sepsis, resolved. Will lower rate of maintenance IVF. Cont to hold ARB and other scheduled anti hypertensives for now 4. UA on admission not too remarkable 5. Recent PNA unspecified, organism. Management per primary team. BCx pending 6. Hypocalcemia 2nd to severe hypoalbuminemia, in part. Corrected Ca higher Jarrod Billy MD, FASN
[2023-10-29] MEDS ORDERED: HYDRALAZINE HCL 20 MG/ML VIAL ONE ×2 (12:38→18:22)
[2023-10-29] MEDS: HYDRALAZINE HCL 20 MG/ML VIAL IV PRN ×2 (12:46→18:33)
--- NOTE | 2023-10-29 15:31 | EKG ---
Test Date: 2023-10-28 Test Time: 11:22:07 Housekeeping Associate: LINA MEASUREMENT RESULTS: Intervals: Rate: 74 MS: 110 QRSD: 112 QT: 428 QTc: 475 [place]: P: 55 MS: 110 QRS: 95 T: 69 INTERPRETIVE STATEMENTS: Sinus rhythm with short MS Right bundle branch block Abnormal ECG Compared to ECG 10/16/2023 09:37:41 Short MS interval now present Right bundle-branch block now present Incomplete right bundle-branch block no longer present Electronically Signed On 10-29-23 15:27:52 DIRECT MARKETING ANALYST by Pete Webber
--- NOTE | 2023-10-29 18:07 | P.CNS ---
Date of Consult: 10/28/23 Reason for Consult: Elevated troponin Requesting Physician: Cezar Mcgowan Chief Complaint: Septic PNA History of Present Illness: Ms. Nevarez is a 78 yo with past medical history of hypertension, hyperlipidemia, chronic kidney disease, and autoimmune disease including diabetes. She presented to an outside emergency department two days ago with a blood glucose in the 600s. She was given insulin, glucose controlled, and sent home. The next morning she did not wake. EMS was called and she was found to be very hypotensive. She was brought to [facility] emergency department where her blood glucose was normal but hypotension remained. She was found to have severe sepsis with shock from pneumonia. Cardiology was consulted for a slightly elevated troponin - 75.4 Allergies No Known Allergies Allergy (Verified 02/24/19 23:23) Home medications list reviewed: Yes Home Medications: Aspirin [Aspir-Low] 1 tab PO DAILY 02/24/19 Atorvastatin Calcium 1 tab PO DAILY 02/24/19 Glimepiride 2 tab PO BID PRN 02/24/19 Levothyroxine Sodium 1 tab PO DAILY 02/24/19 Losartan Potassium 2 tab PO DAILY 02/24/19 carvediloL [Carvedilol] 1 tab PO BID 02/24/19 Pantoprazole [Protonix Tab*] 40 mg PO DAILYAC #30 tab 02/25/19 Furosemide 20 mg PO DAILY 10/16/23 Gabapentin 1 cap PO BEDTIME 10/16/23 Letrozole [Femara*] 1 tab PO BEDTIME 10/16/23 Meloxicam 7.5 mg PO DAILY PRN 10/16/23 OLANZapine [Olanzapine] 2.5 mg PO BEDTIME 10/16/23 Orphenadrine Citrate [Orphenadrine Citrate ER] 1 tab PO BEDTIME 10/16/23 Sennosides [Senna Lax] 2 tab PO DAILY PRN 10/16/23 Tramadol HCl [Ultram] 1 tab PO DAILY PRN 10/16/23 Albuterol Neb [Proventil 0.083% Neb Soln] 2.5 mg NEB [id number] PRN #60 amp 10/18/23 Azithromycin Tab [Zithromax*] 250 mg PO DAILY #5 tab 10/18/23 Cefdinir [Cefdinir*] 300 mg PO BID #14 cap 10/18/23 Ipratropium Neb [Atrovent*] 0.5 mg NEB [id number] #60 amp 10/18/23 Nebulizer 1 each MC DAILY #1 ea 10/18/23 Nebulizer Accessories [Aeroneb Go] 1 each MC DAILY #1 ea 10/18/23 predniSONE [Prednisone*] 20 mg PO BID #11 tab 10/18/23 - Past Medical/Surgical History Diabetic: Yes -: NEUROPATHY -: HTN -: HYPERLIPEDEMIA -: DM TYPE II -: HYPOTHROIDISM -: KIDNEY STONES -: BREAST CANCER -: BLOOD CLOTS-both legs -: double pne x2 -: Right MASTECTOMY -: JASMINA -: X3 -: cataract s/x Psychosocial/ Personal History: Lives at home with her - Family History Mother Medical History: Heart disease, Diabetes Father Medical History: Hypertension Notes: colon cancer - Social History Smoking Status: Unknown if ever smoked Alcohol use: Yes CD- Drugs: No Caffeine use: Yes Place of Residence: Home Review of Systems 10-point ROS is otherwise unremarkable General: As per HPI Respiratory: As per HPI Cardiovascular: As per HPI Neurological: As per HPI Physical Examination Temp Pulse Resp BP Pulse Ox 97.8 F 81 22 H 174/60 H 100 10/29/23 12:00 10/29/23 15:00 10/29/23 15:00 10/29/23 15:00 10/29/23 15:00 General: Alert, In no apparent distress, Oriented x3 HEENT: Atraumatic, Normocephalic, PERRLA Neck: Supple, JVD not distended Respiratory: Clear to auscultation bilaterally Cardiovascular: No edema, Regular rate/rhythm Capillary refill: <2 Seconds Gastrointestinal: Normal bowel sounds, Soft and benign Musculoskeletal: No clubbing Integumentary: No rashes Neurological: Normal speech, Normal tone Lymphatics: No axilla or inguinal lymphadenopathy External genitalia: Deferred Rectal: Deferred - Problems (1) Elevated troponin Current Visit: Yes Status: Acute Plan: Troponin elevation likely demand ischemia. trended up to 120.8 and is now trending down 79.6 Last ECHO 2017, when pt is more hemodynamically stable and infection controlled will likely need stress test (2) Hyperlipidemia associated with type 2 diabetes mellitus Current Visit: Yes Status: Acute Plan: Continue statins, aspirin (3) HTN (hypertension) Onset Date: 03/30/17 Current Visit: No Status: Chronic Plan: Hold antihypertensive until blood pressure recovery and then continue home medications
[2023-10-29] MEDS ORDERED: carvediloL 25 MG TAB ONE (21:26)
[2023-10-29] MEDS: carvediloL 25 MG TAB PO SCH (21:28)
[2023-10-30] MEDS: HEPARIN 5000 UNIT/ML 1 ML VIAL SQ SCH ×3 (01:33→17:04)
[2023-10-30] MEDS: MELATONIN 5 MG TABLET PO SCH ×2 (02:05→21:00)
[2023-10-30 03:17] LABS: Absolute Lymphocytes (CBC) 0.6 K/uL (0.7-4.9); Hematocrit 25.1 % (36.0-45.0); MCV 95.5 fL (80-100); MPV 8.6 fL (7.6-11.3); Platelets 166 thou/uL (152-406); RBC Red Blood Cell Count 2.63 M/uL (3.86-4.86)
[2023-10-30 03:19] LABS: Magnesium 1.7 mg/dL (1.6-2.4); Phosphorus 2.2 mg/dL (2.5-4.9); Potassium 3.8 mEq/L (3.5-5.1)
[2023-10-30] MEDS: carvediloL 25 MG TAB PO SCH ×2 (05:28→17:17)
[2023-10-30] MEDS ORDERED: MAGNESIUM SULFATE 1 gm IVPB 1 GM/100 ML BAG IV ONE (06:00)
--- NOTE | 2023-10-30 07:17 | P.PN ---
Subjective Date of Service: 10/30/23 Chief Complaint: Septic PNA sitting up in chair, no acute distress, no reported fever, chest pain, shortness of breath, oriented x 3, family at bedside, Physical Exam General: Alert, Oriented x3 HEENT: Atraumatic, Normocephalic, PERRLA Neck: Supple, 2+ carotid pulse no bruit, JVD not distended Respiratory: Clear to auscultation bilaterally, Normal air movement Cardiovascular: No edema, Normal pulses, Regular rate/rhythm, Normal S1 S2 Capillary refill: <2 Seconds Gastrointestinal: Normal bowel sounds, Soft and benign Musculoskeletal: No clubbing, No swelling, No contractures Integumentary: No rashes, No breakdown, No significant lesion Neurological: Normal speech, Normal strength at 5/5 x4 extr, Normal tone <Merle Lynn - Last Filed: 10/30/23 15:21> Date of Service: 10/30/23 <Cezar Mcgowan - Last Filed: 10/30/23 18:18> Review of Systems per HPI <Merle Lynn - Last Filed: 10/30/23 15:21> Physical Examination - Vital Signs Temperature: 97.2 F Blood Pressure: 149/48 Pulse: 61 Respirations: 14 Pulse Ox (%): 100 <Merle Lynn - Last Filed: 10/30/23 15:21> Assessment And Plan - Plan Acute Pneumonia failed outpatient treatment Severe sepsis with hypotensive shock secondary to pneumonia improved Leukocytosis improved Lactic acid 1.2, WBC 18.5, BP BP 71 / 40, Pulse 72 12/30 CBC 7.40 normal early left shift 83 no complaint of chest pain shortness of breath Chest x-ray was performed reporting "Stable left basilar pleuroparenchymal opacification as well as small region of opacification at the right apex. Decreased inspiratory effort somewhat limits evaluation. No pneumothorax or right effusion. The cardiomediastinal contours are unremarkable." IV fluids given by EMS and 500 mL of NS given by ED In trandelenburg position in ED Failed azithromycin/cefdinir IV Vanc and Levaquin Flu/COVID/RSV pending Consult ID, Dr. Conn ID note Blood cultures 10/28: pending - leukocytosis resolved - afebrile - Currently on Levofloxacin and Vancomycin (started 10/28) Seen and evaluated in ICU, can transfer to the floor today Stage IV renal carcinoma chronic STACY in the patient with kidney cancer inproving BUN/creatinine 48/1.79, GFR 29, BUN 25 creatinine 1.100 estimated GFR 52 Consult nephrology History of kidney cancer On p.o. chemotherapy gentle IVF per nephrology, hold after 1 bag IVF NSTEMI improving trononin trending down, no reported chest pain cardiology-following Rpjuwdhb78.4/101.7, serial pending EKG RBBB, sinus rhythm with short DC, No obvious ST segment changes, HR74 Aspirin 324 given in the ED, will continue aspirin 81 daily Lipid panel pending Chest xray as above Troponin 75.4->101.7->120.8,-> 79.6 trending down BNP 6358->trend Per cardiology Last ECHO 2017, when pt is more hemodynamically stable and infection controlled will likely need stress test cardiology, Troponin elevation likely demand ischemia. trended up to 120.8 and is now trending down 79.6 Last ECHO 2017, when pt is more hemodynamically stable and infection controlled will likely need stress test hold antihypertensives until blood pressure stable Anemia of chronic disease H&H 07/28->repeat 8.2, 8.5 Monitor in a.m. lab Transfuse Hgb<7 Hypoglycemic episode Hypoglycemia protocol initiated, is not on insulin at home. Blood glucose 47, repeat 79, repeat 83 Diabetes- NIDDM Serum glucose 176 Prior ED visit with glucose > 600, treated with insulin drip then discharged (10/27/23) Accu-Chek with sliding scale insulin History of hypothyroidism Restart home medication TSH/T4 pending DVT PPx heparin DO NOT INTUBATE LOS 2 to 3 days Discharge Plan: Home - Code Status/Comfort Care Code Status: Full Code Critical Care: No Time Spent Managing PTS Care (In Minutes): 35 <Merle Lynn - Last Filed: 10/30/23 15:21> Physician Review: Patient Assessed, Agree with Above Assessment and Plan Physician Review Additional Text: She appears clinically improved today. Will continue IV antibiotics for today. Possible discharge tomorrow on oral antibiotics. Cezar Mcgowan MD <Cezar Mcgowan - Last Filed: 10/30/23 18:18>
[2023-10-30] MEDS: INSULIN REGULAR (HUMAN) 100 UNIT/ML SQ SCH ×4 (07:30→20:54)
[2023-10-30] MEDS: POTASS/SODIUM PHOSPHATE 1 PKT POWD.PACK PO SCH ×3 (08:56→10:59)
[2023-10-30] MEDS: FUROSEMIDE 20 MG TABLET PO SCH (08:57)
[2023-10-30] MEDS: LOSARTAN POTASSIUM 50 MG TABLET PO SCH (08:57)
[2023-10-30] MEDS ORDERED: POTASSIUM CL SA 10 MEQ TAB PO ONE (09:00)
[2023-10-30] MEDS ORDERED: VANCOMYCIN 1 GM/VIAL ONE (09:31)
[2023-10-30] MEDS ORDERED: VANCOMYCIN 1 GM in NA CHLORIDE 0.9% 250 ML IVPB SCH ×2 (10:00→21:00)
[2023-10-30] MEDS: VANCOMYCIN 1.25 GM in NA CHLORIDE 0.9% 250 ML IVPB SCH (11:23)
[2023-10-30 18:55] VITALS: BMI 21.7
[2023-10-30] MEDS: Levofloxacin 750mg IV 750 MG/150 ML BAG IV SCH (20:34)
[2023-10-30] MEDS: ATORVASTATIN 20 MG TAB PO SCH (20:34)
[2023-10-30] MEDS ORDERED: DIPHENHYDRAMINE 50 MG/ML VIAL IV ONE (21:08)
[2023-10-31] MEDS: HEPARIN 5000 UNIT/ML 1 ML VIAL SQ SCH ×3 (00:26→17:27)
[2023-10-31 03:38] LABS: Absolute Lymphocytes (CBC) 0.5 K/uL (0.7-4.9); Hematocrit 24.8 % (36.0-45.0); MCV 95.9 fL (80-100); MPV 8.2 fL (7.6-11.3); Platelets 162 thou/uL (152-406); RBC Red Blood Cell Count 2.59 M/uL (3.86-4.86)
[2023-10-31 03:57] LABS: Magnesium 1.8 mg/dL (1.6-2.4); Phosphorus 3.5 mg/dL (2.5-4.9); Potassium 3.9 mEq/L (3.5-5.1)
--- NOTE | 2023-10-31 06:49 | P.DS ---
Admission Date: 10/28/23 Discharge Date: 10/31/23 Disposition: ROUTINE DISCHARGE Discharge Condition: FAIR Reason for Admission: Septic PNA Brief History of Present Illness: Physical Exam General: Alert, Oriented x3 HEENT: Atraumatic, Normocephalic, PERRLA Neck: Supple, 2+ carotid pulse no bruit, JVD not distended Respiratory: Clear to auscultation bilaterally, Normal air movement Cardiovascular: No edema, Normal pulses, Regular rate/rhythm, Normal S1 S2 Capillary refill: <2 Seconds Gastrointestinal: Normal bowel sounds, Soft and benign Musculoskeletal: No clubbing, No swelling, No contractures Integumentary: No rashes, No breakdown, No significant lesion Neurological: Normal speech, Normal strength at 5/5 x4 extr, Normal tone Hospital Course: Plan to discharge home, Follow up with PCP in 1-2 weeks Follow up with oncology in 1-2 weeks Follow up with Cardiology for Stress test, further cardiac workup Return to emergency room or call 911 for worsening of symptom Acute Pneumonia failed outpatient treatment Severe sepsis with hypotensive shock secondary to pneumonia improved Leukocytosis improved-Leukocytosis resolved Lactic acid 1.2, WBC 18.5, BP BP 71 / 40, Pulse 72 12/30 CBC 7.40 normal early left shift 83 no complaint of chest pain shortness of breath Chest x-ray was performed reporting "Stable left basilar pleuroparenchymal opacification as well as small region of opacification at the right apex. Decreased inspiratory effort somewhat limits evaluation. No pneumothorax or right effusion. The cardiomediastinal contours are unremarkable." IV fluids given by EMS and 500 mL of NS given by ED In trandelenburg position in ED Failed azithromycin/cefdinir IV Vanc and Levaquin Flu/COVID/RSV pending Consult ID, Dr. Conn ID note Blood cultures 10/28: pending - leukocytosis resolved - afebrile - Currently on Levofloxacin and Vancomycin (started 10/28) Discharge home on Levoflacacin takes as directed or until gone Stage IV renal carcinoma chronic STACY in the patient with kidney cancer inproving BUN/creatinine 48/1.79, GFR 29, BUN 25 creatinine 1.100 estimated GFR 52, BUN 18 creatinine 1.09 estimated GFR 52 Consult nephrology History of kidney cancer On p.o. chemotherapy gentle IVF per nephrology, hold after 1 bag IVF NSTEMI improving trononin trending down, no reported chest pain cardiology-following Vqawkgxd69.4/101.7, serial pending EKG RBBB, sinus rhythm with short [place], No obvious ST segment changes, HR74 Aspirin 324 given in the ED, will continue aspirin 81 daily Lipid panel pending Chest xray as above Troponin 75.4->101.7->120.8,-> 79.6 trending down BNP 6358->trend BNP 3454 improved Per cardiology Last ECHO 2017, when pt is more hemodynamically stable and infection controlled will likely need stress test cardiology, Troponin elevation likely demand ischemia. trended up to 120.8 and is now trending down 79.6 Last ECHO 2017, when pt is more hemodynamically stable and infection controlled will likely need stress test hold antihypertensives until blood pressure stable Anemia of chronic disease stable H&H 07/28->repeat 8.2, 8.5, Hemoglobin 8.4/24.3 Monitor in a.m. lab Transfuse Hgb<7 Hypoglycemic episode Hypoglycemia protocol initiated, is not on insulin at home. Blood glucose 47, repeat 79, repeat 83 Diabetes- NIDDM Serum glucose 176 Prior ED visit with glucose > 600, treated with insulin drip then discharged (10/27/23) Accu-Chek with sliding scale insulin History of hypothyroidism Restart home medication TSH/T4 pending Vital Signs/Physical Exam: Temp Pulse Resp BP Pulse Ox 97.6 F 71 16 151/81 H 96 10/31/23 04:00 10/31/23 04:00 10/31/23 04:00 10/31/23 04:00 10/31/23 04:00 Laboratory Data at Discharge: WBC 4.50 thou/uL (4.3-10.9) 10/31/23 03:23 Hgb 8.4 g/dL (12.0-15.0) L 10/31/23 03:23 Hct 24.8 % (36.0-45.0) L 10/31/23 03:23 Plt Count 162 thou/uL (152-406) 10/31/23 03:23 PT 14.3 SECONDS (9.5-12.5) H 10/28/23 12:00 INR 1.31 10/28/23 12:00 APTT 25.2 SECONDS (24.3-36.9) 10/28/23 12:00 Sodium 141 mEq/L (136-145) 10/31/23 03:23 Potassium 3.9 mEq/L (3.5-5.1) 10/31/23 03:23 BUN 18 mg/dL (7-18) 10/31/23 03:23 Creatinine 1.09 mg/dL (0.55-1.02) H 10/31/23 03:23 Glucose 128 mg/dL (74-106) H 10/31/23 03:23 Phosphorus 3.5 mg/dL (2.5-4.9) 10/31/23 03:23 Magnesium 1.8 mg/dL (1.6-2.4) 10/31/23 03:23 Total Bilirubin 0.7 mg/dL (0.2-1.0) 10/28/23 11:30 AST 19 U/L (15-37) 10/28/23 11:30 ALT 17 U/L (13-56) 10/28/23 11:30 Alkaline Phosphatase 57 U/L (45-117) 10/28/23 11:30 Triglycerides 145 mg/dL (<150) 10/29/23 03:41 Cholesterol 112 mg/dL (<200) 10/29/23 03:41 HDL Cholesterol 41 mg/dL (40-60) 10/29/23 03:41 Cholesterol/HDL Ratio 2.73 10/29/23 03:41 Home Medications: Aspirin [Aspir-Low] 1 tab PO DAILY 02/24/19 Atorvastatin Calcium 1 tab PO DAILY 02/24/19 Glimepiride 2 tab PO BID PRN 02/24/19 Levothyroxine Sodium 1 tab PO DAILY 02/24/19 Losartan Potassium 2 tab PO DAILY 02/24/19 carvediloL [Carvedilol] 1 tab PO BID 02/24/19 Pantoprazole [Protonix Tab*] 40 mg PO DAILYAC #30 tab 02/25/19 Furosemide 20 mg PO DAILY 10/16/23 Gabapentin 1 cap PO BEDTIME 10/16/23 Letrozole [Femara*] 1 tab PO BEDTIME 10/16/23 Meloxicam 7.5 mg PO DAILY PRN 10/16/23 OLANZapine [Olanzapine] 2.5 mg PO BEDTIME 10/16/23 Orphenadrine Citrate [Orphenadrine Citrate ER] 1 tab PO BEDTIME 10/16/23 Sennosides [Senna Lax] 2 tab PO DAILY PRN 10/16/23 Tramadol HCl [Ultram] 1 tab PO DAILY PRN 10/16/23 Albuterol Neb [Proventil 0.083% Neb Soln] 2.5 mg NEB [id number] PRN #60 amp 10/18/23 Azithromycin Tab [Zithromax*] 250 mg PO DAILY #5 tab 10/18/23 Cefdinir [Cefdinir*] 300 mg PO BID #14 cap 10/18/23 Ipratropium Neb [Atrovent*] 0.5 mg NEB [id number] #60 amp 10/18/23 Nebulizer 1 each MC DAILY #1 ea 10/18/23 Nebulizer Accessories [Aeroneb Go] 1 each MC DAILY #1 ea 10/18/23 predniSONE [Prednisone*] 20 mg PO BID #11 tab 10/18/23 Diet: AHA Activity: Fall precautions Time spent managing pt's care (in minutes): 55
[2023-10-31] MEDS: carvediloL 25 MG TAB PO SCH ×2 (06:55→17:26)
[2023-10-31] MEDS: INSULIN REGULAR (HUMAN) 100 UNIT/ML SQ SCH ×4 (07:30→20:21)
[2023-10-31] MEDS: FUROSEMIDE 20 MG TABLET PO SCH (08:20)
[2023-10-31] MEDS: LOSARTAN POTASSIUM 50 MG TABLET PO SCH (08:21)
--- NOTE | 2023-10-31 12:23 | P.PN ---
Subjective Date of Service: 10/31/23 Chief Complaint: Septic PNA soing well, sitting up in chair, no acute distress, no reported fever, chest pain, shortness of breath, oriented x 3, family at bedside, Physical Exam General: Alert, Oriented x3 HEENT: Atraumatic, Normocephalic, PERRLA Neck: Supple, 2+ carotid pulse no bruit, JVD not distended Respiratory: Clear to auscultation bilaterally, Normal air movement Cardiovascular: No edema, Normal pulses, Regular rate/rhythm, Normal S1 S2 Capillary refill: <2 Seconds Gastrointestinal: Normal bowel sounds, Soft and benign Musculoskeletal: No clubbing, No swelling, No contractures Integumentary: No rashes, No breakdown, No significant lesion Neurological: Normal speech, Normal strength at 5/5 x4 extr, Normal tone <Merle Lynn - Last Filed: 10/31/23 12:23> Date of Service: 10/31/23 <Cezar Mcgowan - Last Filed: 10/31/23 17:07> Review of Systems Per HPI <Merle Lynn - Last Filed: 10/31/23 12:23> Physical Examination - Vital Signs Temperature: 97.5 F Blood Pressure: 187/78 Pulse: 71 Respirations: 16 Pulse Ox (%): 95 <Merle Lynn - Last Filed: 10/31/23 12:23> Assessment And Plan - Plan Acute Pneumonia failed outpatient treatment Severe sepsis with hypotensive shock secondary to pneumonia improved Leukocytosis improved Lactic acid 1.2, WBC 18.5, BP BP 71 / 40, Pulse 72 12/30 CBC 7.40 normal early left shift 83 no complaint of chest pain shortness of breath Chest x-ray was performed reporting "Stable left basilar pleuroparenchymal opacification as well as small region of opacification at the right apex. Decreased inspiratory effort somewhat limits evaluation. No pneumothorax or right effusion. The cardiomediastinal contours are unremarkable." IV fluids given by EMS and 500 mL of NS given by ED In trandelenburg position in ED Failed azithromycin/cefdinir IV Vanc and Levaquin Flu/COVID/RSV pending Consult ID, Dr. Conn ID note Blood cultures 10/28: pending - leukocytosis resolved - afebrile - Currently on Levofloxacin and Vancomycin (started 10/28) Seen and evaluated in ICU, can transfer to the floor today Stage IV renal carcinoma chronic STACY in the patient with kidney cancer inproving On p.o. chemotherapy BUN/creatinine 48/1.79, GFR 29, BUN 25 creatinine 1.100 estimated GFR 52 Consult nephrology History of kidney cancer gentle IVF per nephrology, hold after 1 bag IVF NSTEMI improving Plan for stress test Nuc med Tues 11/02 (asymptomatic, no reported chest pain, no edema, sob) trononin trending down, no reported chest pain cardiology-following Fbndgpym36.4/101.7, serial pending EKG RBBB, sinus rhythm with short [place], No obvious ST segment changes, HR74 Aspirin 324 given in the ED, will continue aspirin 81 daily Lipid panel pending Chest xray as above Troponin 75.4->101.7->120.8,-> 79.6 trending down BNP 6358->trend Per cardiology Last ECHO 2017, when pt is more hemodynamically stable and infection controlled will likely need stress test cardiology, Troponin elevation likely demand ischemia. trended up to 120.8 and is now trending down 79.6 Last ECHO 2017, when pt is more hemodynamically stable and infection controlled will likely need stress test hold antihypertensives until blood pressure stable Anemia of chronic disease stable H&H 07/28->repeat 8.2, 8.5 Monitor in a.m. lab Transfuse Hgb<7 Hypoglycemic episode improved Hypoglycemia protocol initiated, is not on insulin at home. Blood glucose 47, repeat 79, repeat 83 Diabetes- NIDDM Serum glucose 176 Prior ED visit with glucose > 600, treated with insulin drip then discharged (10/27/23) Accu-Chek with sliding scale insulin History of hypothyroidism Restart home medication TSH/T4 pending DVT PPx heparin DO NOT INTUBATE LOS 2 to 3 days Discharge Plan: Home - Code Status/Comfort Care Code Status: Full Code Critical Care: No Time Spent Managing PTS Care (In Minutes): 35 <Merle Lynn - Last Filed: 10/31/23 12:23> Physician Review: Patient Assessed, Agree with Above Assessment and Plan Physician Review Additional Text: She appears to be clinically improving. Per Cardiology, plan for nuclear stress test - unlikely to occur until 11/02/2023. Cezar Mcgowan M.D. <Cezar Mcgowan - Last Filed: 10/31/23 17:07>
[2023-10-31] MEDS ORDERED: HYDRALAZINE HCL 20 MG/ML VIAL IV PRN (18:56)
[2023-10-31] MEDS: ATORVASTATIN 20 MG TAB PO SCH (19:57)
[2023-10-31] MEDS: MELATONIN 5 MG TABLET PO SCH (19:57)
[2023-10-31] MEDS: VANCOMYCIN 1.25 GM in NA CHLORIDE 0.9% 250 ML IVPB SCH (22:40)
--- NOTE | 2023-10-31 23:26 | P.PN ---
Date of Service: 10/31/23 Vital Signs Temp Pulse Resp BP Pulse Ox 97.2 F 76 16 182/82 H 96 10/31/23 16:00 10/31/23 17:26 10/31/23 16:00 10/31/23 17:26 10/31/23 16:00 Medications Acetaminophen (Acetaminophen 500 Mg Tab) 500 mg PO Q4HP PRN PRN Reason: TEMP > 100' F Acetaminophen (Acetaminophen 325 Mg Tablet) 650 mg PO Q4HP PRN PRN Reason: Pain scale 2-4 (Mild) Atorvastatin Calcium (Atorvastatin 20 Mg Tab) 20 mg PO BEDTIME HORTENCIA Last Admin: 10/31/23 19:57 Dose: 20 mg Carvedilol (Carvedilol 25 Mg Tab) 25 mg PO BID 6AM 6PM HORTENCIA Last Admin: 10/31/23 17:26 Dose: 25 mg Furosemide (Furosemide 20 Mg Tablet) 20 mg PO DAILY HORTENCIA Last Admin: 10/31/23 08:20 Dose: 20 mg Heparin Sodium (Porcine) (Heparin 5000 Unit/Ml 1 Ml Vial) 5,000 unit SQ Q8HR HORTENCIA Last Admin: 10/31/23 17:27 Dose: 5,000 unit Hydralazine HCl (Hydralazine Hcl 20 Mg/Ml Vial) 5 mg IV Q6HR PRN PRN Reason: FOR SYS BP OF 160< Last Admin: 10/29/23 18:33 Dose: 5 mg Hydralazine HCl (Hydralazine Hcl 20 Mg/Ml Vial) 10 mg IV Q6HP PRN PRN Reason: Goal to achieve SBP in comment Levofloxacin/Dextrose (Levaquin 750 Mg/150 Ml Ivpb (Premix)) 750 mg in 150 mls @ 100 mls/hr IV Q48H HORTENCIA; Protocol Last Admin: 10/30/23 20:34 Dose: 150 mls Vancomycin HCl 1.25 gm/ Sodium (Chloride) 250 mls @ 166.667 mls/hr IVPB Q36H HORTENCIA; Protocol Last Admin: 10/31/23 22:40 Dose: 250 mls Insulin Human Regular (Insulin Regular (Human) 100 Unit/Ml) 0 unit SQ ACHS HORTENCIA; Protocol Last Admin: 10/31/23 20:21 Dose: Not Given Losartan Potassium (Losartan Potassium 50 Mg Tablet) 25 mg PO DAILY HORTENCIA Last Admin: 10/31/23 08:21 Dose: 25 mg Melatonin (Melatonin 5 Mg Tablet) 5 mg PO BEDTIME HORTENCIA Last Admin: 10/31/23 19:57 Dose: 5 mg Microbiology Results 10/28/23 11:30 Blood - Blood Aerobic Blood Culture - Preliminary No growth in 24 hours. 10/28/23 11:30 Blood - Blood Anaerobic Blood Culture - Preliminary No growth in 24 hours. 10/28/23 11:20 Blood - Blood Aerobic Blood Culture - Preliminary No growth in 24 hours. 10/28/23 11:20 Blood - Blood Anaerobic Blood Culture - Preliminary No growth in 24 hours. Assessment/ Plan: Nephrology No dyspnea No chest pain Feeling better +BM +UO No acute events overnight Vitals, medications, blood work and imaging reviewed in the chart. NAD. NCAT. MMM. Neck supple. Normal respiratory effort. RRR. Abd ND. No C/C. LE Edema none. No rash. AAO. Normal speech. darrenrice [facility] 11:45 am CLINICAL HISTORY: AMS COMPARISON: Chest Single View dated 10/17/2023; Chest Single View dated 10/16/2023; Chest Single View dated 10/27/2022; Chest Single View dated 06/11/2021 TECHNIQUE: Portable AP view of the chest. FINDINGS: Stable left basilar pleuroparenchymal opacification as well as small region of opacification at the right apex. Decreased inspiratory effort somewhat limits evaluation. No pneumothorax or right effusion. The cardiomediastinal contours are unremarkable. IMPRESSION: Stable findings concerning for pneumonia. Stage I STACY CKD IIIa with Proteinuria -No NSAIDs HTN with CKD -Continue Amlodipine and Losartan DM II with Hyperglycemia -RISS Anemia in chronic illness Hx iron deficiency -Monitor H&H CKD MBD -Start Ergo Case reviewed with Dr. Mcgowan
[2023-11-01] MEDS: HEPARIN 5000 UNIT/ML 1 ML VIAL SQ SCH ×3 (00:03→17:00)
[2023-11-01 02:37] LABS: Absolute Lymphocytes (CBC) 0.7 K/uL (0.7-4.9); Hematocrit 25.2 % (36.0-45.0); Lymphocytes % 17.4 % (15.3-44.8); MCV 96.1 fL (80-100); MPV 9.1 fL (7.6-11.3); Platelets 118 thou/uL (152-406); RBC Red Blood Cell Count 2.62 M/uL (3.86-4.86)
[2023-11-01 02:40] LABS: Magnesium 1.8 mg/dL (1.6-2.4); Phosphorus 3.3 mg/dL (2.5-4.9); Potassium 3.9 mEq/L (3.5-5.1)
[2023-11-01] MEDS: carvediloL 25 MG TAB PO SCH ×2 (05:57→17:08)
[2023-11-01] MEDS ORDERED: MAGNESIUM SULFATE 1 gm IVPB 1 GM/100 ML BAG IV ONE (06:00)
[2023-11-01] MEDS: INSULIN REGULAR (HUMAN) 100 UNIT/ML SQ SCH ×4 (07:30→20:52)
[2023-11-01] MEDS ORDERED: POTASSIUM CL SA 10 MEQ TAB PO ONE (09:00)
[2023-11-01] MEDS: FUROSEMIDE 20 MG TABLET PO SCH (09:03)
[2023-11-01] MEDS: LOSARTAN POTASSIUM 50 MG TABLET PO SCH (09:03)
[2023-11-01] MEDS: AMLODIPINE 5 MG TAB PO SCH (09:06)
[2023-11-01] MEDS: DOCUSATE NA 100 MG CAP PO SCH ×2 (09:06→20:00)
--- NOTE | 2023-11-01 09:38 | P.PN ---
Subjective Date of Service: 11/01/23 Chief Complaint: Septic PNA no acute distress, no reported fever, chest pain, shortness of breath, oriented x 3, family at bedside, Physical Exam General: Alert, Oriented x3 HEENT: Atraumatic, Normocephalic, PERRLA Neck: Supple, 2+ carotid pulse no bruit, JVD not distended Respiratory: Clear to auscultation bilaterally, Normal air movement Cardiovascular: No edema, Normal pulses, Regular rate/rhythm, Normal S1 S2 Capillary refill: <2 Seconds Gastrointestinal: Normal bowel sounds, Soft and benign Musculoskeletal: No clubbing, No swelling, No contractures Integumentary: No rashes, No breakdown, No significant lesion Neurological: Normal speech, Normal strength at 5/5 x4 extr, Normal tone <Merle Lynn - Last Filed: 11/01/23 18:26> Date of Service: 11/01/23 <Marge Flores - Last Filed: 11/01/23 19:01> Review of Systems per HPI <Merle Lynn - Last Filed: 11/01/23 18:26> Physical Examination - Vital Signs Temperature: 97.5 F Blood Pressure: 144/68 Pulse: 66 Respirations: 16 Pulse Ox (%): 95 <Merle Lynn - Last Filed: 11/01/23 18:26> Assessment And Plan - Plan Acute Pneumonia failed outpatient treatment Severe sepsis with hypotensive shock secondary to pneumonia improved Leukocytosis improved admisssion Lactic acid 1.2, WBC 18.5, BP BP 71 / 40, Pulse 72 (admitted to ICU) Treated with Pneumonia, IV ABX 10-28-10/31 (Discharged) 10/31 Readmitted on Vanc/Levoquin,currently on Levoquin IV Daily, day 2 BP s table transferred to floor 10/30 CBC 7.40 normal early left shift 83 no complaint of chest pain shortness of breath Chest x-ray was performed reporting "Stable left basilar pleuroparenchymal opacification as well as small region of opacification at the right apex. Decreased inspiratory effort somewhat limits evaluation. No pneumothorax or right effusion. The cardiomediastinal contours are unremarkable." IV fluids given by EMS and 500 mL of NS given by ED In trandelenburg position in ED Failed azithromycin/cefdinir IV Vanc and Levaquin Flu/COVID/RSV pending Consult ID, Dr. Conn ID note Blood cultures 10/28: pending - leukocytosis resolved - afebrile Stage IV renal carcinoma chronic STACY in the patient with kidney cancer inproving On p.o. chemotherapy BUN/creatinine 48/1.79, GFR 29, BUN 25 creatinine 1.100 estimated GFR 52 Consult nephrology History of kidney cancer gentle IVF per nephrology, hold after 1 bag IVF NSTEMI improving Plan for stress test Nuc med Tues 11/02 (asymptomatic, no reported chest pain, no edema, sob) trononin trending down, no reported chest pain cardiology-following Esxmiztt69.4/101.7, serial pending EKG RBBB, sinus rhythm with short NH, No obvious ST segment changes, HR74 Aspirin 324 given in the ED, will continue aspirin 81 daily Lipid panel pending Chest xray as above Troponin 75.4->101.7->120.8,-> 79.6 trending down BNP 6358->trend Per cardiology Last ECHO 2017, when pt is more hemodynamically stable and infection controlled will likely need stress test cardiology, Troponin elevation likely demand ischemia. trended up to 120.8 and is now trending down 79.6 Last ECHO 2017, when pt is more hemodynamically stable and infection controlled will likely need stress test hold antihypertensives until blood pressure stable Anemia of chronic disease stable H&H 07/28->repeat 8.2, 8.5 Monitor in a.m. lab Transfuse Hgb<7 Hypoglycemic episode improved Hypoglycemia protocol initiated, is not on insulin at home. Blood glucose 47, repeat 79, repeat 83 Diabetes- NIDDM Serum glucose 176 Prior ED visit with glucose > 600, treated with insulin drip then discharged (10/27/23) Accu-Chek with sliding scale insulin History of hypothyroidism Restart home medication TSH/T4 pending DVT PPx heparin DO NOT INTUBATE LOS 2 to 3 days Discharge Plan: Home - Code Status/Comfort Care Code Status: Full Code Critical Care: No Time Spent Managing PTS Care (In Minutes): 35 <Merle Lynn - Last Filed: 11/01/23 18:26> - Plan Pt seen and examined. I agree with the note by the QUALITY CONTROL SUPERVISOR. Pt will do NM stress test tomorrow. <Marge Flores - Last Filed: 11/01/23 19:01>
--- NOTE | 2023-11-01 09:50 | P.PN ---
Date of Service: 11/01/23 Chief Complaint: Septic PNA Subjective: Patient seen and examined at bedside. In no apparent distress. No acute events overnight. Denies any new or worsening complaints. No SOB, cough, chest pain, nausea, vomiting, diarrhea or abdominal pain. Physical Examination Temp Pulse Resp BP Pulse Ox 97.5 F 66 16 144/68 H 95 11/01/23 09:46 11/01/23 09:46 11/01/23 09:46 11/01/23 09:46 11/01/23 09:46 General: Alert, In no apparent distress, Oriented x3 HEENT: Atraumatic, Normocephalic Neck: Supple, JVD not distended Respiratory: Normal air movement. Clear to auscultation bilaterally. Unlabored respirations on room air. 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 - Denies any cough, shortness of breath, chest pain. No nausea, vomiting or diarrhea. Denies any pain at this time. - XR Chest 10/28: " Stable findings concerning for pneumonia. " - Blood cultures 10/28: pending - lactic acid 1.2 - leukocytosis with left shift - afebrile - Currently on Levofloxacin and Vancomycin (started 10/28) Hypotension secondary to hypovolemia - patient was found unresponsive at home, improved with IV fluids given by EMS - STACY: nephrology consulted NSTEMI - Cardiology consulted - pending stress test Recommendations - Pneumonia: On day 5 of 5 levaquin and vancomycin. Discontinue following today's dose. - Strict blood glucose monitoring/control - Renally dose medications - WBC and fever trends Case discussed with Alfa Hammond
[2023-11-01 10:19] VITALS: O2SAT 94
--- NOTE | 2023-11-01 19:47 | P.PN ---
Date of Service: 11/01/23 Vital Signs Temp Pulse Resp BP Pulse Ox 97.5 F 66 16 144/68 H 95 11/01/23 18:27 11/01/23 18:27 11/01/23 18:27 11/01/23 18:27 11/01/23 18:27 Medications Acetaminophen (Acetaminophen 500 Mg Tab) 500 mg PO Q4HP PRN PRN Reason: TEMP > 100' F Acetaminophen (Acetaminophen 325 Mg Tablet) 650 mg PO Q4HP PRN PRN Reason: Pain scale 2-4 (Mild) Amlodipine Besylate (Amlodipine 5 Mg Tab) 5 mg PO DAILY [facility] Last Admin: 11/01/23 09:06 Dose: 5 mg Atorvastatin Calcium (Atorvastatin 20 Mg Tab) 20 mg PO BEDTIME [facility] Last Admin: 10/31/23 19:57 Dose: 20 mg Carvedilol (Carvedilol 25 Mg Tab) 25 mg PO BID 6AM 6PM [facility] Last Admin: 11/01/23 17:08 Dose: 25 mg Docusate Sodium (Docusate Na 100 Mg Cap) 100 mg PO BID [facility] Last Admin: 11/01/23 09:06 Dose: 100 mg Ergocalciferol (Drisdol (Vitamin D=Ergocalciferol) 00780 Unit Cap) 50,000 unit PO Q48H [facility] Stop: 11/04/23 09:01 Furosemide (Furosemide 20 Mg Tablet) 20 mg PO DAILY [facility] Last Admin: 11/01/23 09:03 Dose: 20 mg Heparin Sodium (Porcine) (Heparin 5000 Unit/Ml 1 Ml Vial) 5,000 unit SQ Q8HR [facility] Last Admin: 11/01/23 17:00 Dose: 5,000 unit Hydralazine HCl (Hydralazine Hcl 20 Mg/Ml Vial) 5 mg IV Q6HR PRN PRN Reason: FOR SYS BP OF 160< Last Admin: 10/29/23 18:33 Dose: 5 mg Hydralazine HCl (Hydralazine Hcl 20 Mg/Ml Vial) 10 mg IV Q6HP PRN PRN Reason: Goal to achieve SBP in comment Levofloxacin/Dextrose (Levaquin 750 Mg/150 Ml Ivpb (Premix)) 750 mg in 150 mls @ 100 mls/hr IV Q48H [facility]; Protocol Stop: 11/01/23 23:00 Last Admin: 10/30/23 20:34 Dose: 150 mls Vancomycin HCl 1.25 gm/ Sodium (Chloride) 250 mls @ 166.667 mls/hr IVPB Q36H [facility]; Protocol Stop: 11/01/23 23:00 Last Admin: 10/31/23 22:40 Dose: 250 mls Insulin Human Regular (Insulin Regular (Human) 100 Unit/Ml) 0 unit SQ ACHS [facility]; Protocol Last Admin: 11/01/23 16:30 Dose: Not Given Losartan Potassium (Losartan Potassium 50 Mg Tablet) 25 mg PO DAILY [facility] Last Admin: 11/01/23 09:03 Dose: 25 mg Melatonin (Melatonin 5 Mg Tablet) 5 mg PO BEDTIME [facility] Last Admin: 10/31/23 19:57 Dose: 5 mg Microbiology Results 10/28/23 11:30 Blood - Blood Aerobic Blood Culture - Preliminary No growth in 24 hours. 10/28/23 11:30 Blood - Blood Anaerobic Blood Culture - Preliminary No growth in 24 hours. 10/28/23 11:20 Blood - Blood Aerobic Blood Culture - Preliminary No growth in 24 hours. 10/28/23 11:20 Blood - Blood Anaerobic Blood Culture - Preliminary No growth in 24 hours. Assessment/ Plan: Nephrology No dyspnea No chest pain Feeling better No acute events overnight Vitals, medications, blood work and imaging reviewed in the chart. NAD. NCAT. MMM. Neck supple. Normal respiratory effort. RRR. Abd ND. No C/C. LE Edema none. No rash. AAO. Normal speech. EXAM DESCRIPTION: RADChest Single View10/28/2023 11:45 am CLINICAL HISTORY: AMS COMPARISON: Chest Single View dated 10/17/2023; Chest Single View dated 10/16/2023; Chest Single View dated 10/27/2022; Chest Single View dated 06/11/2021 TECHNIQUE: Portable AP view of the chest. FINDINGS: Stable left basilar pleuroparenchymal opacification as well as small region of opacification at the right apex. Decreased inspiratory effort somewhat limits evaluation. No pneumothorax or right effusion. The cardiomediastinal contours are unremarkable. IMPRESSION: Stable findings concerning for pneumonia. Stage I STACY CKD IIIa with Proteinuria -No NSAIDs HTN with CKD -Continue Amlodipine and Losartan DM II with Hyperglycemia -RISS Anemia in chronic illness Hx iron deficiency -Monitor H&H CKD MBD -Continue Ergo Hospitalist note reviewed
[2023-11-01] MEDS: ATORVASTATIN 20 MG TAB PO SCH (20:00)
[2023-11-01] MEDS: Levofloxacin 750mg IV 750 MG/150 ML BAG IV SCH (20:00)
[2023-11-01] MEDS: MELATONIN 5 MG TABLET PO SCH (20:01)
[2023-11-02] MEDS: HEPARIN 5000 UNIT/ML 1 ML VIAL SQ SCH ×2 (00:36→11:06)
[2023-11-02 03:13] LABS: Absolute Lymphocytes (CBC) 0.6 K/uL (0.7-4.9); Lymphocytes % 13.5 % (15.3-44.8); MCV 95.4 fL (80-100); MPV 7.8 fL (7.6-11.3); Platelets 164 thou/uL (152-406); RBC Red Blood Cell Count 2.63 M/uL (3.86-4.86)
[2023-11-02 03:29] LABS: Albumin 2.1 g/dL (3.4-5.0); Bilirubin Total 0.5 mg/dL (0.2-1.0); Magnesium 1.8 mg/dL (1.6-2.4); Phosphorus 3.2 mg/dL (2.5-4.9); Potassium 3.9 mEq/L (3.5-5.1); Protein, Total 5.6 g/dL (6.4-8.2)
[2023-11-02] MEDS: carvediloL 25 MG TAB PO SCH (05:16)
[2023-11-02] MEDS: INSULIN REGULAR (HUMAN) 100 UNIT/ML SQ SCH ×2 (07:30→11:07)
--- NOTE | 2023-11-02 08:52 | P.PN ---
Date of Service: 11/02/23 Chief Complaint: Septic PNA Subjective: In no apparent distress. Denies any new or worsening complaints. No acute events overnight. Physical Examination Temp Pulse Resp BP Pulse Ox 97.6 F 69 16 144/68 H 98 11/02/23 04:00 11/02/23 04:00 11/02/23 04:00 11/02/23 04:00 11/02/23 04:00 General: Alert, In no apparent distress, Oriented x3 HEENT: Atraumatic, Normocephalic Neck: Supple, JVD not distended Respiratory: Normal air movement. Clear to auscultation bilaterally. Unlabored respirations on room air. 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 - Denies any cough, shortness of breath, chest pain. No nausea, vomiting or diarrhea. Denies any pain at this time. - XR Chest 10/28: " Stable findings concerning for pneumonia. " - Blood cultures 10/28: no growth to date. - lactic acid 1.2 - afebrile - Levofloxacin and Vancomycin (10/28-11/01) Hypotension secondary to hypovolemia - patient was found unresponsive at home, improved with IV fluids given by EMS - STACY: nephrology consulted NSTEMI - Cardiology consulted - pending stress test Recommendations - Pneumonia: Completed 5 days of Levofloxacin and Vancomycin. Continue to monitor for worsening s/s of infection. - Strict blood glucose monitoring/control - Renally dose medications - WBC and fever trends Case discussed with Alfa Hammond
[2023-11-02] MEDS: DOCUSATE NA 100 MG CAP PO SCH (09:00)
[2023-11-02] MEDS: FUROSEMIDE 20 MG TABLET PO SCH (09:00)
[2023-11-02] MEDS ORDERED: DRISDOL (VITAMIN D=ERGOCALCIFEROL) 50000 UNIT CAP PO SCH (09:00)
[2023-11-02] MEDS ORDERED: REGADENOSON 0.4 MG/5 ML SYR IV ONE (09:13)
--- NOTE | 2023-11-02 10:21 | RAD REPORT ---
EXAM DESCRIPTION: NM - Rest Stress Cardiac Imaging - 11/02/2023 10:03 am CLINICAL HISTORY: elevated troponin Chest pain. COMPARISON: No comparisons TECHNIQUE: The patient was administered approximately 10mCi of Tc 99m Sestamibi prior to resting SPE CT imaging of the heart. The patient was then administered approximately 30 mCi of Tc 99m Sestamibi f ollowing exercise or pharmacologic stress. Multiplanar SPECT images were reviewed. FINDINGS: No stress induced ischemic defect is seen to suggest stress induced ischemia. No fixed def ect is seen to suggest hibernating myocardium or scarred myocardium. The end diastolic volume is 30 ml, the end systolic volume is 3 ml, and the ejection fraction is 88 % . IMPRESSION: No stress induced ischemia.
[2023-11-02] MEDS: AMLODIPINE 5 MG TAB PO SCH (11:05)
[2023-11-02] MEDS: LOSARTAN POTASSIUM 50 MG TABLET PO SCH (11:05)
--- NOTE | 2023-11-02 11:59 | TREADPHA ---
DX: ELEVATED TROPONIN Date of Study: 11/02/2023 Ht: 4' 10 " Wt: 103 lb 11.2 oz Consulting Physician: BASSEM MEDICATIONS: TYLENOL, NORVASC, LIPITOR, COREG, COLACE, DRISDOL, LASIX, HEPARIN, APRESOLINE, NOVOLIN-R, COZAAR, MELATONIN HISTORY: 77 YEAR OLD FEMALE WITH COMPLIANTS OF ABNORMAL LABS, HIGH SUGARS. HISTORY OF CANCER, DIABETES MELLITUS, AND HYPERTENSION. PATIENT DENIES ALERGIES PHYSICIAL EXAMINATION: RESTING B.P.: 151/52 RESTING H.R.: 74 RESTING EKG: SINUS RHYTHM, LEFT ATRIAL ENLARGEMENT PROTOCOL: PHARMACOLOGIC EXERCISE TIME: 3:30 B.P. AT PEAK STRESS: 185/64 IMPRESSION: LEXISCAN INJECTED. CARDIOLITE INJECTED - SEE NUCLEAR MEDICINE REPORT. NO SUPRAVENTRICULAR TACHYCARDIA, VENTRICULAR TACHYCARDIA, PREMATURE ATRIAL COMPLEXES, PREMATURE VENTRICULAR COMPLEXES NOTED. PATIENT COMPLAINTS OF SHORTNESS OF BREATH. PATIENT DENIES CHEST PAIN. NO ELECTROCARDIOGRAM CHANGES OF ISCHEMIA WITH LEXISCAN.
--- NOTE | 2023-11-02 16:47 | P.DS ---
Admission Date: 10/28/23 Discharge Date: 11/02/23 Reason for Admission: Septic PNA Brief History of Present Illness: History of Present Illness: Neris Nevarez is a 78 year old with Pmhx breast cancer, Diabetes-NIDDM, Hypertensive disorder, pleural effusion, pneumonia presents to the ED with AMS, unresponsiveness this morning. Patient's family reports, she was at the [place] ED last night with hyperglycemia, being treated with insulin and stabilized. She was discharged around 3 AM and assumed she was tired. Later on in the day they realize she was not waking up and they called the ambulance.when the EMS arrived, her blood glucose was normal but blood pressure was considerably low at 58/30 heart rate 60. When the ambulance arrived she had a blood pressure reading of 58/30 heart rate 69 and started IV fluids, the following blood pressure was 72/42 heart rate 65. Upon arrival to the ED, her initial vitals were BP 71/40, Pulse 72, Resp 18, Temp 98.6, Pulse Ox 90% on R/A. Oxygen increased to 100% on 2 L nasal cannula. Chest x-ray was performed reporting "Stable left basilar pleuroparenchymal opacification as well as small region of opacification at the right apex. Decreased inspiratory effort somewhat limits evaluation. No pneumothorax or right effusion. The cardiomediastinal contours are unremarkable." Laboratory evaluations show WBC 18.5, H&H 9/27, sodium 137, potassium 4.7, BUN creatinine 48/1.79, GFR 29, serum blood glucose 176. Neris Nevarez will be admitted to the hospitalis service in the ICU for further treatment of pneumonia. Of note, Neris was admitted 10/16/2023 through 10/19/2023, being treated for pneumonia and discharged with p.o. azithromycin and cefdinir of which she was compliant, today would have been her last dose. Hospital Course: Roque is a pleasant 78-year-old female patient with a past medical history significant for breast cancer, diabetes, hypertension, pleural effusion who was admitted to the [facility] on 10/28/2020 for her mental status and unresponsiveness.. Patient was admitted in the hospital with IV antibiotics, IV fluids and referred to manager service desk and cycle director. Patient underwent stress test on 09/02/2024 On , patient was seen on m rounds and deemed medically stable for discharge. Patient was discharged with instructions to schedule follow-up appointments with PCP 3-5 5 days and manager service desk in 2 weeks and cycle director in 4 weeks. The patient and family members were given the opportunity to ask questions and reported no further questions. Furthermore, all questions were answered to the best of my ability. 1. Please call and schedule a follow-up appointment with your PCP in 3-5 days 2. Please call and schedule a follow-up appointment with manager service desk 2 weeks days 3. Please call and schedule a follow-up appointment with manager service desk 4 weeks days - Please follow-up with your PCP for medication refills/adjustments <Kinjal Rosario - Last Filed: 11/02/23 16:47> Admission Date: 10/28/23 Discharge Date: 11/03/23 Hospital Course: Pt seen and examined. I agree with the note by the LIQUOR CLERK. Ok to discharge pt. <Marge Flores - Last Filed: 11/03/23 16:18> Disposition: ROUTINE DISCHARGE Discharge Condition: FAIR Vital Signs/Physical Exam: Temp Pulse Resp BP Pulse Ox 97.6 F 73 18 157/67 H 96 11/02/23 12:00 11/02/23 12:00 11/02/23 12:00 11/02/23 12:00 11/02/23 12:00 General: Alert, Oriented x3 HEENT: Atraumatic, Normocephalic Neck: Supple Respiratory: Clear to auscultation bilaterally, Normal air movement Cardiovascular: No edema, Normal pulses Capillary refill: >2 Seconds Gastrointestinal: Normal bowel sounds, Soft and benign Musculoskeletal: No clubbing, No swelling Integumentary: No rashes, No significant lesion Neurological: Normal speech, Normal tone Laboratory Data at Discharge: WBC 4.20 thou/uL (4.3-10.9) L 11/02/23 02:43 Hgb 8.7 g/dL (12.0-15.0) L 11/02/23 02:43 Hct 25.0 % (36.0-45.0) L 11/02/23 02:43 Plt Count 164 thou/uL (152-406) D 11/02/23 02:43 PT 14.3 SECONDS (9.5-12.5) H 10/28/23 12:00 INR 1.31 10/28/23 12:00 APTT 25.2 SECONDS (24.3-36.9) 10/28/23 12:00 Sodium 138 mEq/L (136-145) D 11/02/23 02:43 Potassium 3.9 mEq/L (3.5-5.1) 11/02/23 02:43 BUN 12 mg/dL (7-18) 11/02/23 02:43 Creatinine 1.12 mg/dL (0.55-1.02) H 11/02/23 02:43 Glucose 134 mg/dL (74-106) H 11/02/23 02:43 Phosphorus 3.2 mg/dL (2.5-4.9) 11/02/23 02:43 Magnesium 1.8 mg/dL (1.6-2.4) 11/02/23 02:43 Total Bilirubin 0.5 mg/dL (0.2-1.0) 11/02/23 02:43 AST 13 U/L (15-37) L 11/02/23 02:43 ALT 13 U/L (13-56) 11/02/23 02:43 Alkaline Phosphatase 47 U/L (45-117) 11/02/23 02:43 Triglycerides 145 mg/dL (<150) 10/29/23 03:41 Cholesterol 112 mg/dL (<200) 10/29/23 03:41 HDL Cholesterol 41 mg/dL (40-60) 10/29/23 03:41 Cholesterol/HDL Ratio 2.73 10/29/23 03:41 <Kinjla Rosario - Last Filed: 11/02/23 16:47> Vital Signs/Physical Exam: Temp Pulse Resp BP Pulse Ox 97.4 F 74 18 123/59 L 96 11/02/23 16:00 11/02/23 16:00 11/02/23 16:00 11/02/23 16:00 11/02/23 16:00 Laboratory Data at Discharge: WBC 4.20 thou/uL (4.3-10.9) L 11/02/23 02:43 Hgb 8.7 g/dL (12.0-15.0) L 11/02/23 02:43 Hct 25.0 % (36.0-45.0) L 11/02/23 02:43 Plt Count 164 thou/uL (152-406) D 11/02/23 02:43 PT 14.3 SECONDS (9.5-12.5) H 10/28/23 12:00 INR 1.31 10/28/23 12:00 APTT 25.2 SECONDS (24.3-36.9) 10/28/23 12:00 Sodium 138 mEq/L (136-145) D 11/02/23 02:43 Potassium 3.9 mEq/L (3.5-5.1) 11/02/23 02:43 BUN 12 mg/dL (7-18) 11/02/23 02:43 Creatinine 1.12 mg/dL (0.55-1.02) H 11/02/23 02:43 Glucose 134 mg/dL (74-106) H 11/02/23 02:43 Phosphorus 3.2 mg/dL (2.5-4.9) 11/02/23 02:43 Magnesium 1.8 mg/dL (1.6-2.4) 11/02/23 02:43 Total Bilirubin 0.5 mg/dL (0.2-1.0) 11/02/23 02:43 AST 13 U/L (15-37) L 11/02/23 02:43 ALT 13 U/L (13-56) 11/02/23 02:43 Alkaline Phosphatase 47 U/L (45-117) 11/02/23 02:43 Triglycerides 145 mg/dL (<150) 10/29/23 03:41 Cholesterol 112 mg/dL (<200) 10/29/23 03:41 HDL Cholesterol 41 mg/dL (40-60) 10/29/23 03:41 Cholesterol/HDL Ratio 2.73 10/29/23 03:41 <Marge Flores - Last Filed: 11/03/23 16:18> Diet: Regular Activity: Ad giovani Time spent managing pt's care (in minutes): 55 (minutes) <Kinjal Rosario - Last Filed: 11/02/23 16:47> <Marge Flores - Last Filed: 11/03/23 16:18> Home Medications: Aspirin [Aspir-Low] 1 tab PO DAILY 02/24/19 Atorvastatin Calcium 1 tab PO DAILY 02/24/19 Glimepiride 2 tab PO BID PRN 02/24/19 Levothyroxine Sodium 1 tab PO DAILY 02/24/19 Losartan Potassium 2 tab PO DAILY 02/24/19 carvediloL [Carvedilol] 1 tab PO BID 02/24/19 Pantoprazole [Protonix Tab*] 40 mg PO DAILYAC #30 tab 02/25/19 Furosemide 20 mg PO DAILY 10/16/23 Gabapentin 1 cap PO BEDTIME 10/16/23 Letrozole [Femara*] 1 tab PO BEDTIME 10/16/23 Meloxicam 7.5 mg PO DAILY PRN 10/16/23 OLANZapine [Olanzapine] 2.5 mg PO BEDTIME 10/16/23 Orphenadrine Citrate [Orphenadrine Citrate ER] 1 tab PO BEDTIME 10/16/23 Sennosides [Senna Lax] 2 tab PO DAILY PRN 10/16/23 Tramadol HCl [Ultram] 1 tab PO DAILY PRN 10/16/23 Albuterol Neb [Proventil 0.083% Neb Soln] 2.5 mg NEB [id number] PRN #60 amp 10/18/23 Ipratropium Neb [Atrovent*] 0.5 mg NEB [id number] #60 amp 10/18/23 Nebulizer 1 each MC DAILY #1 ea 10/18/23 Nebulizer Accessories [Aeroneb Go] 1 each MC DAILY #1 ea 10/18/23 predniSONE [Prednisone*] 20 mg PO BID #11 tab 10/18/23 Atorvastatin Calcium [Lipitor*] 20 mg PO BEDTIME tab 10/31/23 Furosemide [Lasix*] 20 mg PO DAILY tab 10/31/23 Losartan Potassium [Cozaar*] 25 mg PO DAILY 10/31/23 carvediloL [Coreg*] 25 mg PO BID 6AM 6PM tab 10/31/23 Physician Discharge Instructions: PHYSICIAN'S DISCHARGE INSTRUCTIONS Roque is a pleasant 78-year-old female patient with a past medical history significant for breast cancer, diabetes, hypertension, pleural effusion who was admitted to the [facility] on 10/28/2020 for her mental status and unresponsiveness.. Patient was admitted in the hospital with IV antibiotics, IV fluids and referred to manager service desk and cycle director. Patient underwent stress test on 09/02/2024 On , patient was seen on m rounds and deemed medically stable for discharge. Patient was discharged with instructions to schedule follow-up appointments with PCP 3-5 5 days and manager service desk in 2 weeks and cycle director in 4 weeks. The patient and family members were given the opportunity to ask questions and reported no further questions. Furthermore, all questions were answered to the best of my ability. - Please follow-up with your PCP for medication refills/adjustments Plan to discharge home, Follow up with PCP in 1-2 weeks Follow up with oncology in 1-2 weeks Follow up with Cardiology f4 weeks Return to emergency room or call 911 for worsening of symptom Physician Discharge Instructions: -DC IV and DC home Diet: ADA, low sodium Activity: Fall precautions COMMUNITY SERVICES Services Needed: None IMMUNIZATION Influenza Vaccine Indicated: Influenza Vaccine Given: Date Given: Pneumonia Vaccine Indicated: Pneumonia Vaccine Given: Date Given: Followup: Estefanía Batista MD [ACTIVE - CAN ADMIT] - Pete Webber MD [ACTIVE - CAN ADMIT] -
[2023-11-02 17:16] VITALS: BP 123/59; TEMP 97.4
--- NOTE | 2023-11-02 20:33 | P.PN ---
Date of Service: 11/02/23 Vital Signs Temp Pulse Resp BP Pulse Ox 97.4 F 74 18 123/59 L 96 11/02/23 16:00 11/02/23 16:00 11/02/23 16:00 11/02/23 16:00 11/02/23 16:00 Microbiology Results 10/28/23 11:30 Blood - Blood Aerobic Blood Culture - Final No growth in 5 days. 10/28/23 11:30 Blood - Blood Anaerobic Blood Culture - Final No growth in 5 days. 10/28/23 11:20 Blood - Blood Aerobic Blood Culture - Final No growth in 5 days. 10/28/23 11:20 Blood - Blood Anaerobic Blood Culture - Final No growth in 5 days. Assessment/ Plan: Nephrology No dyspnea No chest pain Feeling better No acute events overnight Vitals, medications, blood work and imaging reviewed in the chart. NAD. NCAT. MMM. Neck supple. Normal respiratory effort. RRR. Abd ND. No C/C. LE Edema none. No rash. AAO. Normal speech. EXAM DESCRIPTION: RADChest Single View10/28/2023 11:45 am CLINICAL HISTORY: AMS COMPARISON: Chest Single View dated 10/17/2023; Chest Single View dated 10/16/2023; Chest Single View dated 10/27/2022; Chest Single View dated 06/11/2021 TECHNIQUE: Portable AP view of the chest. FINDINGS: Stable left basilar pleuroparenchymal opacification as well as small region of opacification at the right apex. Decreased inspiratory effort somewhat limits evaluation. No pneumothorax or right effusion. The cardiomediastinal contours are unremarkable. IMPRESSION: Stable findings concerning for pneumonia. Stage I STACY CKD IIIa with Proteinuria -No NSAIDs HTN with CKD -Continue Amlodipine and Losartan DM II with Hyperglycemia -RISS Anemia in chronic illness Hx iron deficiency -Monitor H&H CKD MBD -Continue Ergo Hospitalist note reviewed
--- NOTE | 2023-11-03 07:14 | ECHO ---
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-BC 2-DIMENSIONAL: YES M.MODE: YES DOPPLER: YES COLOR FLOW: YES TDS: NO PORTABLE: YES DEFINITY: NO BUBBLE STUDY: NO DIAGNOSIS: ELEVATED TROPONIN CARDIAC HISTORY: CATHERIZATION: NO SURGERY: NO PROSTHETIC VALVE: N PACEMAKER: NO O MEASUREMENTS (cm) DIASTOLIC (NORMALS) SYSTOLIC (NORMALS) IVSd 1.0 (0.6-1.2) LA Diam 2.3 (1.9-4.0) LVEF 54% LVIDd 3.6 (3.5-5.7) LVIDs 2.6 (2.0-3.5) %FS 27% LVPWd 1.0 (0.6-1.2) Ao Diam 2.0 (2.0-3.7) 2 DIMENSIONAL ASSESSMENT: RIGHT ATRIUM: NORMAL LEFT ATRIUM: NORMAL RIGHT VENTRICLE: NORMAL LEFT VENTRICLE: NORMAL TRICUSPID VALVE: NORMAL MITRAL VALVE: MILD MITRAL REGURGITATION PULMONIC VALVE: NORMAL AORTIC VALVE: NORMLA PERICARDIAL EFFUSION: TRACE AORTIC ROOT: NORMAL LEFT VENTRICULAR WALL MOTION: NORMAL DOPPLER/COLOR FLOW: SEE BELOW COMMENTS: 1. NORMAL LEFT VENTRICULAR EJECTION FRACTION 55-60% WITH NORMAL WALL MOTION. 2. GRADE I DIASTOLIC DYSFUNTION. 3. MILD MITRAL REGURGITATION. TECHNOLOGIST: Ben SUNSHINE
== END 2023-11-02 17:26 | disposition home or self-care (01) | DRG 871 ==
LOC: ER 11:06 → ERHOLD 15:58 → 3RD-ICU 18:46 → 2ND 10-29 23:11
PROVIDERS: ADMIT Internal Medicine; ATTEND Internal Medicine
DX: A41.9 Sepsis, unspecified organism (principal); G93.41 Metabolic encephalopathy; I21.4 Non-ST elevation (NSTEMI) myocardial infarction; J18.9 Pneumonia, unspecified organism; R65.21 Severe sepsis with septic shock; N17.9 Acute kidney failure, unspecified; C78.00 Secondary malignant neoplasm of unspecified lung; C79.00 Secondary malignant neoplasm of unspecified kidney and renal pelvis; R64 Cachexia; N18.31 Chronic kidney disease, stage 3a; I12.9 Hypertensive chronic kidney disease with stage 1 through stage 4 chronic kidney disease, or unspecified chronic kidney disease; C50.919 Malignant neoplasm of unspecified site of unspecified female breast; Z90.10 Acquired absence of unspecified breast and nipple; Z90.49 Acquired absence of other specified parts of digestive tract; E11.22 Type 2 diabetes mellitus with diabetic chronic kidney disease; Z79.4 Long term (current) use of insulin; E11.649 Type 2 diabetes mellitus with hypoglycemia without coma; E11.40 Type 2 diabetes mellitus with diabetic neuropathy, unspecified; E78.5 Hyperlipidemia, unspecified; Z86.718 Personal history of other venous thrombosis and embolism; Z79.01 Long term (current) use of anticoagulants; E03.9 Hypothyroidism, unspecified; D64.9 Anemia, unspecified; I45.10 Unspecified right bundle-branch block; Z68.21 Body mass index [BMI] 21.0-21.9, adult; E83.51 Hypocalcemia
CPT/HCPCS: 36415; 71045; 78452; 80048; 80053; 80061; 80076; 80202; 81001; 82947; 83036; 83605; 83735; 83880; 84100; 84439; 84443; 84484; 85025; 85610; 85730; 87040; 90471; 90732; 93005; 93017; 93306; 96361; 96365; 99285; A9500; J0360; J0696; J1200; J1644; J1815; J2785; J3475; J7030; J7040; J7050; J7120; Q2035

== ENCOUNTER 2023-11-19 09:22 | Inpatient (IN) | payer OTHER ==
--- OUTSIDE RECORDS SUMMARY | 2023-11-19 09:25 | XMS REPORT | Clinical Summary ---
Author Name Unknown Organization [facility] [place] Address [address] [place] [address] Care Team Providers Care Motorized Squad Captain Name Role Phone Sanjeev Mcgowan MD Primary Care Provider [phone] Thong Segura MD Unavailable Allergies No known [...] nightly as needed for sleep. 0 Active hydrocortisone (ANUSOL-HC) 2.5% rectal creamIndications :Other [...] twice daily. 60 tablet 0 3 Active HYDROcodone-acet aminophen (Viking) 5 mg-325 mg per tabletIndication s:Infiltrating duct [...] moderate pain. 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 Every morning for 21 days followed by 7 days off. Repeat every 28 days. 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 90 tablet 1 3 11/09/19 24 Discontinued morphine (MS Contin) 15 mg ER tabletIndication [...] Cancer Staging:Clinical stage from 06/01/2022:Stage IV(pM1, ER+, AK-, HER2-) - Signed by Sanjeev Mcgowan MD on 09/03/2022 Last Assessment & Plan: Mrs. Nguyen is a 77 y.o. female with metastatic [...] stage 4 Last Assessment & Plan: Mrs. Nguyen is a 77 y.o. female with metastatic [...] Date Type Department Care Team Description 11/09/2023 Telephone Breast Center - Medical Oncology [address] [facility], 5th [place] [address] Cam Valera RN 10/18/2023 Orders Only Cardiopulmonary Center - Pulmonology Medicine [address] [facility], 6th [place] [address] Yancy Roberson MD Chronic cough (Primary Dx) 10/04/2023 6:15 AM CO TEACHER Ancillary Procedure MD Ezequiel Wilson [place] [id number] [facility] 2nd [place] [address] Yvette De La Torre P, ELECTRIC RANGE ASSEMBLER Infiltrating duct carcinoma, 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; 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) 07/22/2023 Orders Only MD Ezequiel Romo - Breast Medical Oncology [address] [place] [address], [place] [address] Sanjeev Mcgowan MD Infiltrating duct carcinoma, 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; Right> 07/22/2023 Orders Only MD Ezequiel Wilson [address] [place] [address] Yvette De La Torre P, ELECTRIC RANGE ASSEMBLER 07/19/2023 10:30 AM CDT Infusion MD Ezequiel [place] - Infusion [address] [place] [address] 4th [place] [address] Yvette De La Torre P, ELECTRIC RANGE ASSEMBLER Infiltrating duct carcinoma, 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; Right> 07/19/2023 10:00 AM CDT Follow-Up MD Ezequiel [place] - Breast Medical Oncology [address] [place] [address], [place] [address] Sanjeev Mcgowan MD Infiltrating duct carcinoma, 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; 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) 07/19/2023 6:25 AM CDT Ancillary Procedure MD Ezequiel Wilson [address] 2nd [place] [address] Yvette De La Torre P, ELECTRIC RANGE ASSEMBLER Infiltrating duct carcinoma, 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; Right> 07/19/2023 Orders Only MD Ezequiel [place] [address] [place] [address], [place] [address] Yvette De La Torre P, ELECTRIC RANGE ASSEMBLER 07/19/2023 Travel 07/06/2023 Orders Only MD Nieves [address] [place] [address] Potter, Yvette P, ELECTRIC RANGE ASSEMBLER Infiltrating duct carcinoma, 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; Right> 07/02/2023 Orders Only MD Nieves Mclaughlin [address] [place] [address], [place] [address] Pottessa, Yvette P, ELECTRIC RANGE ASSEMBLER Infiltrating duct carcinoma, 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; Right> 06/25/2023 Orders Only [address] [place] [address] Yvette De La Torre P, ELECTRIC RANGE ASSEMBLER 06/20/2023 Refill [facility] - Breast Medical Oncology [address] [place] [address] Yvette De La Torre P, ELECTRIC RANGE ASSEMBLER Infiltrating duct carcinoma, 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; Right> 05/31/2023 Telephone Colorectal Center - Medical Oncology [address] [place] [address], 7th [place] [address] Kate Yip MA 05/05/2023 2:00 PM CDT Follow-Up Cardiopulmonary Center - Pulmonology Medicine [address] [place] [address], 6th [place] [address] Aakash Don Y, ELECTRIC RANGE ASSEMBLER Infiltrating duct carcinoma, 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; 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); Pleural effusion; Dysphonia 05/05/2023 1:30 PM CDT Ancillary Procedure [facility] [address] [place] [address], 2nd [place] [address] Aakash Don Y, ELECTRIC RANGE ASSEMBLER Pleural effusion 05/05/2023 Orders Only [address] [place] [address] Yvette De La Torre P, ELECTRIC RANGE ASSEMBLER Infiltrating duct carcinoma, 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; 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) 05/05/2023 Travel 04/20/2023 Orders Only MD Ezequiel Wilson [address] [address] Yvette De La Torre P, ELECTRIC RANGE ASSEMBLER Infiltrating duct carcinoma, 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; 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) 04/15/2023 8:12 PM CDT - 04/16/2023 12:12 AM CDT Emergency [facility] [address] [place] [address], 1st Floor near [place] [address] Benito Hooper MD Right upper quadrant pain (Primary Dx); Infiltrating duct carcinoma, 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; Right>; Metastatic malignant neoplasm to bone; Secondary malignant neoplasm of liver and intrahepatic bile duct; Chronic lung disease Discharge Disposition: Home 04/15/2023 Travel 04/07/2023 Nurse Triage [facility] PHYSICIAN [address] [place] [address] Son Albright RN 03/02/2023 1:00 PM CDT Telemedicine MD Nieves [place] - Breast Medical Oncology [address] [place] [address] Sanjeev Mcgowan MD Infiltrating duct carcinoma, 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; 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) 02/04/2023 12:45 PM CDT - 02/04/2023 11:59 PM CDT Hospital Encounter [facility] - Speech Pathology [address] [place] [address] Main dg, 10th [place] [address] Aakash Don, Zaynab Childers, PhD Dysphonia Discharge Disposition: Home 02/04/2023 Travel 02/02/2023 1:30 PM CDT Follow-Up [facility]iop[facility] - Pulmonology Medicine [address] [place] [address] Main dg, 6th [place] [address] Aakash Don APRN Infiltrating duct carcinoma, 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; 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); Pleural effusion; Dysphonia 02/02/2023 12:15 PM CDT Ancillary Procedure [facility] [address] [place] [address], 2nd [place] [address] Aakash Don, ELECTRIC RANGE ASSEMBLER Pleural effusion 02/02/2023 Travel 01/28/2023 2:30 PM CDT Infusion MD Ezequiel [place] - Infusion [address] [place] [address] 4th [place] [address] Yvette De La Torre, ELECTRIC RANGE ASSEMBLER Infiltrating duct carcinoma, 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; 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) 01/28/2023 Travel 01/21/2023 12:58 PM CDT - 01/21/2023 11:59 PM CDT Hospital Encounter [facility] - Surgical Oncology [address] [place] [address], 10th Floor, [place] [address] Thong Segura MD Dysphonia (Primary Dx); Paralysis of vocal cords and larynx, unspecified Discharge Disposition: Home 01/21/2023 Orders Only [facility] - Surgical Oncology [address] [place] [address], 10th Floor, [place] [address] Santos Lewis, ELECTRIC RANGE ASSEMBLER Paralysis of vocal cords and larynx, unspecified (Primary Dx) 01/21/2023 Travel 01/14/2023 Orders Only MD Ezequiel Romo - Breast Medical Oncology [address] [place] [address] Yvette De La Torre, ELECTRIC RANGE ASSEMBLER 01/04/2023 1:00 PM CO TEACHER Telemedicine Cardiop[facility] Center - Pulmonology Medicine [address] [place] [address], 6th [place] [address] Aakash Don, ELECTRIC RANGE ASSEMBLER Infiltrating ductal carcinoma of breast, stage 4 <Female> (Primary Dx); Pleural effusion; Dysphonia 01/04/2023 8:00 AM CO TEACHER Ancillary Procedure [facility] [address] [place] [address], 2nd [place] [address] Aakash Don, ELECTRIC RANGE ASSEMBLER Pleural effusion 01/04/2023 Orders Only Cardiopulmonary Center - Pulmonology Medicine [address] [place] [address] Main dg, 6th [place] [address] Aakash Don Y, ELECTRIC RANGE ASSEMBLER Dysphonia (Primary Dx) 01/04/2023 Travel 01/01/2023 Orders Only [facility] Breast Medical Oncology [address] [place] [address] Yvette De La Torre, ELECTRIC RANGE ASSEMBLER Infiltrating duct carcinoma, 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; Right> 12/31/2022 Mobile Encounter Cardiopulmonary Center - Pulmonology Medicine [facility] Main dg, 6th [place] [address] Aakash Don, ELECTRIC RANGE ASSEMBLER 12/25/2022 Orders Only [facility] Breast Medical Oncology [address] [place] [address] Yvette De La Torre, ELECTRIC RANGE ASSEMBLER Infiltrating duct carcinoma, 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; 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) 12/09/2022 9:00 AM CO TEACHER Ancillary Procedure Diagnostic Center 12[address] [facility], 2nd [place] [address] Aakash Don, ELECTRIC RANGE ASSEMBLER Pleural effusion 12/09/2022 Travel 12/04/2022 Orders Only [facility] [place] - Pulmonology Medicine [address] [place] [address] Main dg, 6th [place] [address] Aakash Don Y, ELECTRIC RANGE ASSEMBLER Pleural effusion (Primary Dx) 11/26/2022 10:20 AM CO TEACHER Telemedicine [facility] Breast Medical Oncology [address] [place] [address] Sanjeev Mcgowan MD Infiltrating duct carcinoma, 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; 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) 11/26/2022 Orders Only [facility] Breast Medical Oncology [address] [place] [address] Yvette De La Torre P, ELECTRIC RANGE ASSEMBLER Infiltrating duct carcinoma, 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; 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) 11/24/2022 10:30 AM CO TEACHER Follow-Up Cardiopulmonary Center - Pulmonology Medicine [address] [facility] Main Bldg, 6th [place] [address] Aakash Don Y, ELECTRIC RANGE ASSEMBLER Infiltrating ductal carcinoma of breast, stage 4 <Female> (Primary Dx); Pleural effusion; Dysphonia; Malignant pleural effusion 11/24/2022 9:15 AM CO TEACHER - 11/24/2022 11:59 PM CO TEACHER Hospital Encounter Diagnostic Imaging Center 15[address] [facility] Main Bldg, 3rd [place] [address] Yancy Roberson MD Pleural effusion Discharge Disposition: Home 11/24/2022 Travel after 11/19/2022 Surgical History Surgery Date Site/Laterality Comments MASTECTOMY [...] lb 1.5 oz) 10/04/2023 5:00 A M CO TEACHER Height - - Body Mass Index 22.83 10/29/2022 10:00 AM CO TEACHER Plan of Treatment Upcoming Encounters Date Type Department Care Team Description 12/02/2023 8:15 AM CO TEACHER Ancillary Procedure X-Ray Outpatient Center 12[address] [facility], 7th [place] [address] Yancy Roberson MD [address] [place] [address] 12/02/2023 9:30 AM CO TEACHER Follow-Up Cardiopulmonary Center - Pulmonology Medicine [address] [place] [address], 6th [place] [address] Yancy Roberson MD [facility] [place] [address] Health Maintenance Due Date Last Done Comments COVID-19 Vaccination (#1) 04/16/1946 Procedures Procedure Name Priority Date/Time Associated Diagnosis Comments MRI BRAIN W WO CONTRAST Routine 10/04/20 7:51 AM CO TEACHER Infiltrating duct carcinoma, 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; Right> CT CHEST ABDOMEN PELVIS W CONTRAST Routine 07/19/2023 8:57 AM CDT Infiltrating duct carcinoma, 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; Right> FRACTIONATED BILIRUBIN Routine 09/18/202 3 6:28 AM CDT Infiltrating duct carcinoma, NOS [...] METABOLIC PANEL Routine 04/15/2023 6:07 PM CDT BACON DE RINDER VIDEOSTROBOSCOPY Routine 02/04/2023 1:29 PM CDT Dysphonia [...] CHEST 2 VW Routine 01/04/2023 9:15 AM CO TEACHER Pleural effusion XR CHEST 2 VW Routine 12/09/2022 9:57 AM CO TEACHER Pleural effusion XR CHEST 2 VW Routine 11/24/2022 10:02 AM CO TEACHER Pleural effusion after 11/19/2022 Results * MRI Brain with and without Contrast (10/04/2023 7:51 AM CO TEACHER) Anatomical Region Laterality Modality Head Magnetic Resonan ce 10/04/2023 9:21 AM CO TEACHER Impressions 10/04/2023 9:24 AM CO TEACHER 1. No evidence of an acute infarct. 2. No evidence of enhancing intracranial metastases. Narrative 10/04/2023 9:24 AM CO TEACHER FULL RESULT: Examination: MRI BRAIN W WO [...] intracranial metastases. Yvette De La Torre APRN [facility] MRI ORDERABLES * CT Chest Abdomen Pelvis [...] 6:28 AM CDT) Only the most recent of3 resultswithin the time period is included. Creatinine 1.20(H) 0.51 - 0.95 mg/dL [facility] Comment:Testing performed at [facility], [address] [place] [address] Blood 07/19/2023 6:28 AM CDT 07/19/2023 6:28 AM CDT Yvette De La Torre APRN LAB BLOOD ORDERABLES Performing Organization Address City/State/[facility] Co de Phone Number [address], [facility] [address] [place] [address] * (ABNORMAL) .CBC (07/19/2023 6:28 AM CDT) Only the most recent of2 resultswithin the time period is included. Pathologist [facility] WBC 7.9 4.1 - 10.5 K/uL [facility] Comment:All components of th e CBC performed at [facility], [address] [place] [address] RBC 3.09(L) 3.99 - 5.46 M/uL [facility] Comment:All components of th e CBC performed at [facility], [address] [place] [address] Hgb 9.9(L) 12.2 - 15.3 gm/dL [facility] Comment:As part of CBC or as an individual orderable testing performed at [facility], [address] [place] [address] Hct 30.7(L) 36.4 - 46.8 % [facility] Comment:As part of CBC testi ng performed at [facility], [address] [place], [place] [address] MCV 99 82 - 99 fL [facility] Comment:As part of CBC testi ng performed at [facility], [address] [place], [place] [id number] MCH 32.0 26.6 - 33.2 pg [facility] Comment:As part of CBC testi ng performed at [facility], [address] [place] [address] MCHC 32.2 31.1 - 35.2 gm/dL [facility] Comment:As part of CBC testi ng performed at [facility], [address] [place] [address] RDW-SD 48.8 37.5 - 49.7 fL [facility] Comment:As part of CBC testi ng performed at [facility], [address] [place] [address] RDW-CV 13.3 11.6 - 15.5 % [facility] Comment:As part of CBC testi ng performed at [facility], [address] [place] [address] Platelet count 199 160 - 397 K/uL [facility] Comment:As part of CBC or an individual orderable testing performed at [facility], [address] [place] [address] MPV 9.8 9.1 - 12.6 fL [facility] Comment:As part of CBC testi ng performed at [facility], [address] [place] [address] Blood 07/19/2023 6:28 AM CDT 07/19/2023 6:28 AM CDT Yvette De La Torre APRN LAB BLOOD ORDERABLES [address], [facility] [address] [place] [address] * (ABNORMAL) Glomerular Filtration Rate (07/19/2023 6:28 AM CDT) Only the most recent of3 resultswithin the time period is included. eGFR 47(L) >=60 mL/min/1.7 3 sq. m [facility] Comment: The eGFRcr is calculated with the [...] fulfill criteria for CKD. Testing performed at [facility], [address] [place] [address] Blood 07/19/2023 6:28 AM CDT 07/19/2023 6:28 AM CDT Yvette De La Torre APRN LAB BLOOD ORDERABLES [address], [facility] [address] [place] [address] * Fractionated Bilirubin (07/19/2023 6:28 AM CDT) Only the most recent of2 resultswithin the time period is included. [facility] Bili Total <0.3 <=1.2 mg/dL [facility] Comment: Direct and indirect bilirubin will not be reported when Total bilirubin result is <0.3 mg/dL Indocyanine Green (ICG) may cause falsely elevated bilirubin results. Total and direct bilirubin must not be measured from samples containing indocyanine green. False elevation of total bilirubin can be seen in patients with IgG concentrations above 28 g/L. Testing performed at [facility], [address] [place] [address] Blood 07/19/2023 6:28 AM CDT 07/19/2023 6:28 AM CDT Yvette De La Torre APRN LAB BLOOD ORDERABLES [address], [facility] [address] [place] [address] * (ABNORMAL) Differential (07/19/2023 6:28 AM CDT) Only the most recent of2 resultswithin the time period is included. Neutrophil % 75.2(H) 43.2 - 72.7 % [facility] Comment:All components of th e Differential performed at [facility], [address] [place] [address] Lymphocyte % 14.2(L) 16.8 - 46.2 % [facility] Comment:As part of the Diffe rential testing performed at [facility], [address] [place] [address] Monocyte % 7.0 5.1 - 12.5 % [facility] Comment:As part of the Diffe rential testing performed at [facility], [address] [place] [address] Eosinophil % 3.4 0.4 - 6.3 % [facility] Comment:As part of the Diffe rential testing performed at [facility], [address] [place] [address] Basophil % 0.1(L) 0.2 - 1.4 % [facility] Comment:As part of the Diffe rential testing performed at [facility], [address] [place] [address] IGRE % 0.1 0.1 - 1.5 % [facility] Comment: IGRE % count includes Metamyelocytes, Myelocytes, and Promyelocytes. As part of the Differential testing performed at [facility], [address] [place] [address] Neutrophil Abs 5.93 1.95 - 7.25 K/uL [facility] Comment:As part of the Diffe rential testing performed at [facility], [address] [place] [address], [place] [address] Lymphocyte Abs 1.12 1.01 - 3.24 K/uL [facility] Comment:As part of the Diffe rential testing performed at [facility], [address] [place] [address], [place] [address] Monocyte Abs 0.55 0.24 - 0.85 K/uL [facility] Comment:As part of the Diffe rential testing performed at [facility], [address] [place] [address] Eosinophil Abs 0.27 0.02 - 0.50 K/uL [facility] Comment:As part of the Diffe rential testing performed at [facility], [address] [place] [address] Basophil Abs 0.01(L) 0.02 - 0.09 K/uL [facility] Comment:As part of the Diffe rential testing performed at [facility], [address] [place] [address] IG Abs 0.01 0.01 - 0.12 K/uL [facility] Comment:As part of the Diffe rential testing performed at [facility], [address] [place] [address], [place] [address] Blood 07/19/2023 6:28 AM CDT 07/19/2023 6:28 AM CDT Yvette De La Torre APRN LAB BLOOD ORDERABLES Performing Organization Address [facility]/State/[facility] Co de Phone Number [address], [facility] [address] [place] [address] * BUN (07/19/2023 6:28 AM CDT) Only the most recent of2 resultswithin the time period is included. BUN 18 6 - 23 mg/dL [facility] Comment:Testing performed at [facility], [address] [place] [address] Blood 07/19/2023 6:28 AM CDT 07/19/2023 6:28 AM CDT Yvette Preciado Wil MACK LAB BLOOD ORDERABLES [address], [address] [address] * ALT (07/19/2023 6:28 AM CDT) Only the most recent of2 resultswithin the time period is included. ALT 13 <=33 U/L [facility] Comment:Testing performed at [facility], [address] [place] [address] Blood 07/19/2023 6:28 AM CDT 07/19/2023 6:28 AM CDT Yvette Preciado DemetrisGonzalez LAB BLOOD ORDERABLES Performing Organization Address City/[facility]/ZIP Co de Phone Number [address], [address] [address] * Aspartate Aminotransferase (07/19/2023 6:28 AM CDT) Only the most recent of2 resultswithin the time period is included. [facility] AST 19 <=32 U/L [facility] Comment:Testing performed at [facility], [address] [place] [address] Blood 07/19/2023 6:28 AM CDT 07/19/2023 6:28 AM CDT Yvette Preciado DemetrisGonzalez LAB BLOOD ORDERABLES [address], [address] [address] * (ABNORMAL) Total Protein (07/19/2023 6:28 AM CDT) Only the most recent of2 resultswithin the time period is included. [facility] Total Protein 6.3(L) 6.4 - 8.3 g/dL [facility] Comment:Testing performed at [facility], [address] [place] [address] Blood 07/19/2023 6:28 AM CDT 07/19/2023 6:28 AM CDT Yvette De La Torre APRN LAB BLOOD ORDERABLES [address], [place] [address] * Alkaline Phosphatase (07/19/2023 6:28 AM CDT) Only the most recent of2 resultswithin the time period is included. [facility] Alk Phos 60 35 - 104 U/L [facility] Comment:Testing performed at [facility], [address] [place] [address] Blood 07/19/2023 6:28 AM CDT 07/19/2023 6:28 AM CDT Yvette De La Torre APRN LAB BLOOD ORDERABLES [place] [id number] * (ABNORMAL) Glucose Level (07/19/2023 6:28 AM CDT) Only the most recent of2 resultswithin the time period is included. [facility] Glucose Level 187(H) 70 - 99 mg/dL [facility] Comment: Effective 05/27/16, the glucose reference intervals have been updated based on [place] [employer] guidelines (Standards of Medical Care in Diabetes 2016. Diabetes Care 2016; 39: S13-S22). Fasting blood glucose: Normal: 70-99 mg/dL Impaired fasting glucose (increased risk for diabetes or pre-diabetes): 100- 125 mg/dL Diabetes mellitus: >/=126 mg/dL Random blood glucose: Normal: 70-199 mg/dL Note: Random glucose >100 mg/dL is associated with increased risk for diabetes Testing performed at [facility], [address] [place] [address] Blood 07/19/2023 6:28 AM CDT 07/19/2023 6:28 AM CDT Yvette De La Torre APRN LAB BLOOD ORDERABLES [address], [address] [address] * Calcium Level (07/19/2023 6:28 AM CDT) Only the most recent of3 resultswithin the time period is included. Calcium Lvl 8.6 8.4 - 10.2 mg/dL [facility] Comment:Testing performed at [facility], [address] [place] [id number] Blood 07/19/2023 6:28 AM CDT 07/19/2023 6:28 AM CDT Yvette De La Torre APRN LAB BLOOD ORDERABLES [address] [address] * (ABNORMAL) Albumin Level (07/19/2023 6:28 AM CDT) Only the most recent of2 resultswithin the time period is included. Albumin Lvl 3.3(L) 3.5 - 5.2 gm/dL [facility] Comment:Testing performed at [facility], [address] [place] [id number] Blood 07/19/2023 6:28 AM CDT 07/19/2023 6:28 AM CDT Yvette De La Torre APRN LAB BLOOD ORDERABLES [address] [address] * Electrolyte Panel (07/19/2023 6:28 AM CDT) Only the most recent of2 resultswithin the time period is included. Sodium Lvl 138 136 - 145 mEq/L [facility] Comment:Testing performed at [facility], [address] [place] [address] Potassium Lvl 3.9 3.5 - 5.1 mEq/L [facility] Comment:Testing performed at [facility], [address] [place] [address] Chloride 105 98 - 107 mEq/L [facility] Comment:Testing performed at [facility], [address] [place] [address] CO2 23 22 - 29 mEq/L [facility] Comment:Testing performed at [facility], [address] [place] [address] Anion Gap 10 4 - 14 mEq/L [facility] Comment:Testing performed at [facility], [address] [place] [address] Blood 07/19/2023 6:28 AM CDT 07/19/2023 6:28 AM CDT Yvette De La Torre APRN LAB BLOOD ORDERABLES Performing Organization Address [facility]/State/ZIP Co de Phone Number [address], [facility] [address] [place] [address] * X-ray Chest 2 Views (1 month) [...] in reticular andnodular lung opacities. Aakash Don APRN IMG DIAGNOSTIC IMAG ING ORDERABLES * CT [...] with the final report. Benito Hooper MD [facility] CT ORDERABLES * CT Abdomen Pelvis with [...] with the final report. Benito Hooper MD [facility] CT ORDERABLES * X-ray Chest 1 View (04/15/2023 9:04 PM CDT) Anatomical Region Laterality Modality Chest Digital Radiogra [...] imaging. There is no pneumothorax. Procedure Note Maxim Treviño MD - 04/15/2023 FULL RESULT: Examination: [...] (ABNORMAL) POC VBG+Lac (04/15/2023 8:40 PM CDT) POC VB pH 7.40 7.31 - 7.41 [...] Clean Dev Yes POC TELCOR Performing Lab [facility] POC [facility]EL[facility] Comment:[facility], [address] [place] [address]; Safety Grooving Machine Operator: Sara Velazquez MD; Waived Point of Care Testing - Radha Greenwood MD Blood 04/15/2023 8:40 PM CDT 04/15/2023 8:40 PM CDT Benito Hooper MD POCT ORDERABLES - DE VICE Performing Organization Address [facility] Co de Phone Number POC TELCOR Unless otherwise noted, all lab tests performed by: Division of Pathology and Laboratory Medicine [address] [place] [address] * Clot Expiration Date (04/15/2023 6:07 PM CDT) Pathologist [facility] T & S Expiration 04/18/2023 [facility] Blood 04/15/2023 6:07 PM CDT 04/15/2023 7:43 PM CDT Shameka Carson MD BLOOD BANK TEST ORD ERABLES Performing Organization Address [facility]/ZIP Co de Phone Number [facility] Unless otherwise noted, all lab tests performed by: Division of Pathology and Laboratory Medicine [address] [place] [address] * TMP Interpretation Antibody Screen Negative (04/15/2023 6:07 PM CDT) Pathologist [facility] TMP Auto Neg ABSC Interp At the present time, patient plasma shows no evidence of RBC alloantibodi es. [facility] Comment: PATRICIA NGUYEN MD - [id number] Dictated by: MD Sofya MARIA [id number] Dictated Date/Time: 04.16.2023 8:30 AM CDT Transcribed Date/Time: 04.16.2023 8:30 AM CDT Electronically Signed By: MD Sofya MARIA [id number] on 04.16.2023 8:30 AM C Blood 04/15/2023 6:07 PM CDT 04/15/2023 7:43 PM CDT Shameka Carson MD BLOOD BANK TEST ORD ERABLES [facility] Unless otherwise noted, all lab tests performed by: Division of Pathology and Laboratory Medicine [address] [place] [id number] * aPTT (04/15/2023 6:07 PM CDT) aPTT 29.0 24.1 - 35.5 second(s) [facility] Blood 04/15/2023 6:07 PM CDT 04/15/2023 6:20 PM CDT Shameka Carson MD LAB BLOOD ORDERABLE S Performing Organization Address City/[facility]/ZIP Co de Phone Number [facility] Unless otherwise noted, all lab tests performed by: Division of Pathology and Laboratory Medicine [address] [place] [phone] * ABORh (04/15/2023 6:07 PM CDT) ABORh. O POS CT MD [facility] Blood 04/15/2023 6:07 PM CDT 04/15/2023 7:43 PM CDT Shameka Carson MD BLOOD BANK TEST ORD ERABLES [facility] Unless otherwise noted, all lab tests performed by: Division of Pathology and Laboratory Medicine [address] [place] [id number] * Prothrombin Time with INR (04/15/2023 6:07 PM CDT) Pathologist [facility] PT 13.8 11.9 - 14.5 second(s) [facility] INR 1.07 0.87 - 1.12 [facility] Blood 04/15/2023 6:07 PM CDT 04/15/2023 6:20 PM CDT Shameka Carson MD LAB BLOOD ORDERABLE S [facility] Unless otherwise noted, all lab tests performed by: Division of Pathology and Laboratory Medicine [address] [place] [phone] * Antibody Screen (04/15/2023 6:07 PM CDT) Pathologist [facility] ABSC. Negative ABSC [facility] Blood 04/15/2023 6:07 PM CDT 04/15/2023 7:43 PM CDT Shameka Carson MD BLOOD BANK TEST ORD ERABLES [facility] Unless otherwise noted, all lab tests performed by: Division of Pathology and Laboratory Medicine [address] [place] [address] * Phosphorus Level (04/15/2023 6:07 PM CDT) [facility] Phosphorus 4.4 2.5 - 4.5 mg/dL [facility] Blood 04/15/2023 6:07 PM CDT 04/15/2023 6:33 PM CDT Shameka Carson MD LAB BLOOD ORDERABLE S [facility] Unless otherwise noted, all lab tests performed by: Division of Pathology and Laboratory Medicine [address] [place] [phone] * (ABNORMAL) Magnesium Level (04/15/2023 6:07 PM CDT) Magnesium 2.8(H) 1.6 - 2.6 mg/dL [facility] Blood 04/15/2023 6:07 PM CDT 04/15/2023 6:33 PM CDT Shameka Carson MD LAB BLOOD ORDERABLE S Performing Organization Address [facility] Co de Phone Number [facility] Unless otherwise noted, all lab tests performed by: Division of Pathology and Laboratory Medicine [address] [place] [address] * LDH (04/15/2023 6:07 PM CDT) [facility] LDH 171 135 - 214 U/L [facility] Comment:Results greater than 1651 U/L may not be reliable due to matrix effect with extended dilution as it exceeds the optimization consultant's recommended limit. Caution should be exercised when interpreting such values and done in conjunction with clinical context. Blood 04/15/2023 6:07 PM CDT 04/15/2023 6:33 PM CDT Shameka Carson MD LAB BLOOD ORDERABLE S Performing Organization Address [facility] de Phone Number [facility] Unless otherwise noted, all lab tests performed by: Division of Pathology and Laboratory Medicine [address] [place] [address] * [facility]ACON [place] RINDER Videostroboscopy (02/04/2023 1:29 PM CDT) Narrative [facility] - 02/04/2023 1:29 PM CDT Zaynab Jamison, PhD 05/05/2023 6:15 PM [facility] RINDER Videostroboscopy Date/Time: 02/04/2023 1:29 PM Provider Information: [...] Patient disposition: discharge to home 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 [facility] [place] RINDER ORDERABLES [facility] after 11/19/2022 Advance Directives Documents on File Type Date Recorded Patient Channeler Expl anation Advance Directives: Medical Power of Die Mounter 11/09/2022 Medical Power of Att orney Advance Directives: Medical Power of Die Mounter 11/04/2022 Medical Power of Att orney Latest Code Status on File Code Status Date Activated Date Inactivated Comments DNR 10/29/2022 6:41 PM 11/08/2022 8:07 PM Question Answer Comments DNR obtained from: Legal Guardian or MPOA Code Status History Code Status Date Activated Date Inactivated Comments Full Code 10/27/2022 9:19 AM 10/29/2022 6:41 PM Care Teams Motorized Squad Captain Relationship Specialty Start Date End Date Sanjeev Mcgowan MD [address] [place] [id number] PCP - General Breast Medical Oncology 08/28/22 Thong Segura MD [address] [place] [address] Consulting Physician Head and Neck Surgery 01/21/23
[2023-11-19] MEDS ORDERED: NA CHLORIDE 0.9% 1,000 ML ONE (10:01)
[2023-11-19 10:25] LABS: Absolute Lymphocytes (CBC) 0.4 K/uL (0.7-4.9); Lymphocytes % 3.6 % (15.3-44.8); MCV 96.4 fL (80-100); MPV 7.7 fL (7.6-11.3); Platelets 271 thou/uL (152-406); RBC Red Blood Cell Count 3.12 M/uL (3.86-4.86)
--- NOTE | 2023-11-19 10:30 | RAD REPORT ---
EXAM DESCRIPTION: CT - Head Brain Wo Cont - 11/19/2023 9:51 am CLINICAL HISTORY: Alteration of awareness/confusion COMPARISON: 2021 TECHNIQUE: Computed axial tomography of the head was obtained. IV contrast was not requested. All CT scans are performed using dose optimization technique as appropriate and may include automated exposure control or mA/KV adjustment according to patient size. FINDINGS: An intracranial bleed is not seen The ventricles are normal in caliber No extra-axial fluid collection is noted. 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 [id number] chronic ethmoid sinusitis IMPRESSION: No acute intracranial abnormality is seen If patient's symptoms persist MRI of the brain would be recommended
[2023-11-19 10:37] LABS: Protime INR 1.21
[2023-11-19 10:39] LABS: SARS-CoV-2 Antigen Rapid Res Negative (Negative)
[2023-11-19 10:54] LABS: Albumin 2.9 g/dL (3.4-5.0); Bilirubin Total 0.5 mg/dL (0.2-1.0); Potassium 4.1 mEq/L (3.5-5.1); Protein, Total 7.1 g/dL (6.4-8.2)
--- NOTE | 2023-11-19 11:01 | RAD REPORT ---
EXAM DESCRIPTION: Britta Single View11/19/2023 10:40 am CLINICAL HISTORY: Chest pain COMPARISON: October 2023 FINDINGS: Left basilar and right upper lobe alveolar opacities Heart is normal size IMPRESSION: Bilateral pulmonary opacities probably pneumonia
--- NOTE | 2023-11-19 11:05 | ER ---
Nurse's Notes [facility] Name: Neris Nevarez Age: 78 yrs Sex: Female : 1945 Arrival Date: 11/19/2023 Time: 09:22 Bed 6 Private MD: Diagnosis: Pneumonia, unspecified organism;Altered mental status, unspecified;Delirium due to known physiological condition Presentation: 11/19 09:42 Chief complaint: Spouse and/or significant other states: patient started having ap3 hallucinations this morning. patient denies any pain at this time. Coronavirus screen: At this time, the client does not indicate any symptoms associated with coronavirus-19. Ebola Screen: No symptoms or risks identified at this time. Initial Sepsis Screen: Does the patient meet any 2 criteria? No. Patient's initial sepsis screen is negative. Does the patient have a suspected source of infection? No. Patient's initial sepsis screen is negative. Risk Assessment: Do you want to hurt yourself or someone else? Patient reports no desire to harm self or others. Onset of symptoms was November 19, 2023. 09:42 Method Of Arrival: Ambulatory ap3 09:42 Acuity: YOLIE 3 ap3 Triage Assessment: 09:44 General: Appears in no apparent distress. Behavior is calm, cooperative, appropriate ap3 for age. Pain: Denies pain. Neuro: Level of Consciousness is awake, alert, obeys commands, Oriented to person, place, time, situation, Speech is normal, Facial symmetry appears normal, Reports weakness hallucination . Cardiovascular: Patient's skin is warm and dry. Respiratory: Airway is patent Respiratory effort is even, unlabored, Respiratory pattern is regular, symmetrical. Historical: - Allergies: 09:43 No Known Allergies; ap3 - PMHx: 09:43 Cancer; breast; Diabetes - NIDDM; Hypertensive disorder; DVT; Hypothyroidism; pleural ap3 effusion; Pneumonia; - PSHx: 09:43 section; GALLBLADDER; mastectomy; right; ap3 - Immunization history:: Client reports receiving the 2nd dose of the Covid vaccine, Last tetanus immunization: up to date. - Social history:: Smoking status: Patient denies any tobacco usage or history of. - Family history:: not pertinent. - Hospitalizations: : No recent hospitalization is reported. Screenin:44 Abuse screen: Denies threats or abuse. Nutritional screening: No deficits noted. ap3 Tuberculosis screening: No symptoms or risk factors identified. 20:10 [facility] ED Fall Risk Assessment (Adult) Confusion or Disorientation Yes (5 pts) tm6 Impaired Gait Yes (1 pt) Score/Fall Risk Level 3 or more points = High Risk. Assessment: 11:37 Reassessment: Patient and/or family updated on plan of care and expected duration. Pain ap3 level reassessed. Patient is alert, oriented x 3, equal unlabored respirations, skin warm/dry/pink. Patient states feeling better. 20:10 Reassessment: Patient appears in no apparent distress at this time. Patient and/or tm6 family updated on plan of care and expected duration. Pain level reassessed. Patient is alert, oriented x 3, equal unlabored respirations, skin warm/dry/pink. Vital Signs: 09:42 BP 142 / 52; Pulse 87; Resp 19; Temp 97.4; Pulse Ox 91% on R/A; Weight 49.9 kg; Height ap3 4 ft. 11 in. ; Pain 0/10; 11:31 BP 126 / 40; Pulse 80; Pulse Ox 100% on 2 lpm NC; ap3 12:30 BP 116 / 42; Pulse 72; Pulse Ox 100% on 2 lpm NC; tm6 13:30 BP 112 / 37; Pulse 69; Pulse Ox 100% on 2 lpm NC; tm6 14:30 BP 106 / 35; Pulse 67; Pulse Ox 100% on 2 lpm NC; tm6 15:30 BP 113 / 38; Pulse 65; Pulse Ox 100% on 2 lpm NC; tm6 16:30 BP 132 / 51; Pulse 74; Pulse Ox 100% 2 lpm ; tm6 17:41 BP 118 / 42; Pulse 78; Pulse Ox 100% 2 lpm ; tm6 18:00 BP 130 / 44; Pulse 78; Pulse Ox 100% on 2 lpm NC; tm6 20:09 Pulse 75; Pulse Ox 100% on 2 lpm NC; tm6 09:42 Body Mass Index 22.22 (49.90 kg, 149.86 cm) ap3 09:42 Pain Scale: Adult ap3 ED Course: 09:25 Patient arrived in ED. im 09:26 Maciel Puentes MD is Attending Physician. rn 09:43 Triage completed. ap3 09:44 Arm band placed on right wrist. ap3 09:44 Patient has correct armband on for positive identification. Bed in low position. Call ap3 light in reach. Side rails up X2. Adult w/ patient. case monitor on. Pulse ox on. NIBP on. 09:52 CT Head Brain wo Cont In Process Unspecified. EDMS 09:56 Mary Tripp, RN is Primary Nurse. ap3 10:14 Initial lab(s) drawn, by me, sent to lab. First set of blood cultures drawn by me. EKG em1 done, by ED staff, reviewed by Maciel Puentes MD COVID swab sent to lab. Flu and/or RSV swab sent to lab. Inserted saline lock: 20 gauge in left antecubital area, using aseptic technique. Blood collected. 10:19 SARS RAPID Sent. em1 10:19 Flu Sent. em1 10:19 Blood Culture Adult (2) Sent. em1 10:19 CBC with Diff Sent. em1 10:19 CMP Sent. em1 10:19 Lactate w/ 2H reflex if indic. Sent. em1 10:19 Protime (+inr) Sent. em1 10:19 Ptt, Activated Sent. em1 10:41 Chest Single View XRAY In Process Unspecified. EDMS 11:05 Marge Flores MD is Hospitalizing Provider. rn 11:27 Second set of blood cultures drawn by nc. ap3 14:34 Provided Education on: ED process. tl4 14:34 No provider procedures requiring assistance completed. tl4 20:10 Patient admitted, IV remains in place. tm6 Administered Medications: 10:31 Drug: NS 0.9% IV 500 ml IV at bolus once Route: IV; Rate: bolus; Site: left antecubital;ap3 11:50 Follow up: IV Status: Infusion continued; IV Intake: 500ml ap3 11:31 Drug: Rocephin IV 1 grams IV at calculated rate once; Given slow IV push per pharmacy ap3 instructions Route: IV; Rate: calculated rate; Site: left antecubital; 11:50 Follow up: IV Status: Completed infusion; IV Intake: 50ml ap3 11:50 Drug: Zithromax IVPB 500 mg IVPB once over 1 hrs; mix in 250 mL NS Route: IVPB; Infused ap3 Over: 1 hrs; Site: left antecubital; Medication: 14:33 VIS not applicable for this client. tl4 Intake: 11:50 IV: 50ml; Total: 50ml. ap3 11:50 IV: 500ml; Total: 550ml. ap3 Outcome: 11:05 Decision to Hospitalize by Provider. rn 20:09 Admitted to Med/surg accompanied by nurse, family with patient, via stretcher, room tm6 224, with oxygen, with chart, Report called to Bora LOPEZ 20:09 Condition: stable 20:09 Instructed on the need for admit, 20:40 Patient left the ED. tm6 Signatures: Dispatcher [employer] EDMS Maciel Puentes MD MD rn Martinez, Eric em1 Prokisch, Amanda, RN RN ap3 Monika Garcia Tawney, RN RN tm6 Logdahl, Brant tl4 Corrections: (The following items were deleted from the chart) 09:43 09:43 PMHx: Cancer; breast; ap3 ap3 09:43 09:43 PMHx: Cancer; breast; ap3 ap3 09:43 09:43 PMHx: Cancer; breast; ap3 ap3
--- NOTE | 2023-11-19 11:05 | EDPHYS ---
Physician Documentation [facility] Name: Neris Nevarez Age: 78 yrs Sex: Female : 1945 Arrival Date: 11/19/2023 Time: 09:22 Bed 6 Private MD: ED Physician Maciel Puentes HPI: 11/19 10:41 This 78 yrs old Female presents to ER via Ambulatory with complaints of rn Hallucinations, General Weakness. 10:41 The patient presents with confusion, disorientation. Onset: The symptoms/episode rn began/occurred this morning. Possible causes: unknown. Current symptoms: In the emergency department the patient's symptoms have improved. The patient has experienced similar episodes in the past. reports concern for UTI. States has done this before with confusion and hallucinations and was urinary tract infection. 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 Patient denies fever but states had chills this morning. No dysuria. No abdominal pain or chest pain. No shortness of breath. No cough.. Historical: - Allergies: 09:43 No Known Allergies; ap3 - PMHx: 09:43 Cancer; breast; Diabetes - NIDDM; Hypertensive disorder; DVT; Hypothyroidism; pleural ap3 effusion; Pneumonia; - PSHx: 09:43 section; GALLBLADDER; mastectomy; right; ap3 - Immunization history:: Client reports receiving the 2nd dose of the Covid vaccine, Last tetanus immunization: up to date. - Social history:: Smoking status: Patient denies any tobacco usage or history of. - Family history:: not pertinent. - Hospitalizations: : No recent hospitalization is reported. 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 Head/Face: Normocephalic, atraumatic. ENT: Dry mucous membranes Cardiovascular: Regular rate and rhythm. No pulse deficits. Respiratory: No increased work of breathing, no retractions or nasal flaring. Abdomen/GI: Soft, nontender Skin: Warm, dry MS/ Extremity: Pulses equal, no cyanosis. Neuro: Awake and alert, GCS 15, oriented to person, place, time, and situation. Cranial nerves II-XII grossly intact. Motor strength 4/5 in all extremities. Sensory grossly intact Vital Signs: 09:42 BP 142 / 52; Pulse 87; Resp 19; Temp 97.4; Pulse Ox 91% on R/A; Weight 49.9 kg; Height ap3 4 ft. 11 in. ; Pain 0/10; 11:31 BP 126 / 40; Pulse 80; Pulse Ox 100% on 2 lpm NC; ap3 12:30 BP 116 / 42; Pulse 72; Pulse Ox 100% on 2 lpm NC; tm6 13:30 BP 112 / 37; Pulse 69; Pulse Ox 100% on 2 lpm NC; tm6 14:30 BP 106 / 35; Pulse 67; Pulse Ox 100% on 2 lpm NC; tm6 15:30 BP 113 / 38; Pulse 65; Pulse Ox 100% on 2 lpm NC; tm6 16:30 BP 132 / 51; Pulse 74; Pulse Ox 100% 2 lpm ; tm6 17:41 BP 118 / 42; Pulse 78; Pulse Ox 100% 2 lpm ; tm6 18:00 BP 130 / 44; Pulse 78; Pulse Ox 100% on 2 lpm NC; tm6 20:09 Pulse 75; Pulse Ox 100% on 2 lpm NC; tm6 09:42 Body Mass Index 22.22 (49.90 kg, 149.86 cm) ap3 09:42 Pain Scale: Adult ap3 MDM: 09:26 Patient medically screened. rn 11:04 Differential Diagnosis: CVA, electrolyte abnormality, hypoglycemia, pneumonia, UTI, rn volume depletion. Data reviewed: vital signs, nurses notes, lab test result(s), radiologic studies, CT scan, plain films, and as a result, I will admit patient. Consideration of Admission/Observation Patient was admitted/placed on observation. Escalation of care including admission/observation considered. Management of patient was discussed with the following: Hospitalist: . Counseling: I had a detailed discussion with the patient and/or guardian regarding the historical points, exam findings, and any diagnostic results supporting the discharge/admit diagnosis, lab results, radiology results, the need for further work-up and treatment in the hospital. 11/19 09:40 Order name: Blood Culture Adult (2) rn 11/19 09:40 Order name: CBC with Diff rn 11/19 09:40 Order name: CMP; Complete Time: 11:03 rn 11/19 09:40 Order name: Lactate w/ 2H reflex if indic.; Complete Time: 11:03 rn 11/19 09:40 Order name: Protime (+inr); Complete Time: 10:41 rn 11/19 09:40 Order name: Ptt, Activated; Complete Time: 10:41 rn 11/19 09:40 Order name: Urinalysis w/ reflexes rn 11/19 09:40 Order name: Flu; Complete Time: 11:03 rn 11/19 09:40 Order name: SARS RAPID; Complete Time: 10:41 rn 11/19 11:22 Order name: CBC Smear Scan EDTN 11/19 11:51 Order name: Basic Metabolic Panel EDTN 11/19 11:51 Order name: Basic Metabolic Panel EDTN 11/19 11:51 Order name: Basic Metabolic Panel EDMS 11/19 11:51 Order name: Basic Metabolic Panel EDTN 11/19 11:51 Order name: CBC with Automated Diff EDMS 11/19 11:51 Order name: CBC with Automated Diff EDMS 11/19 11:51 Order name: CBC with Automated Diff EDMS 11/19 11:51 Order name: CBC with Automated Diff EDMS 11/19 11:51 Order name: Hemoglobin A1c EDTN 11/19 11:51 Order name: Hemoglobin A1c EDTN 11/19 11:51 Order name: NT PRO-BNP EDTN 11/19 11:51 Order name: NT PRO-BNP EDMS 11/19 09:40 Order name: Chest Single View XRAY; Complete Time: 11:03 rn 11/19 09:41 Order name: CT Head Brain wo Cont; Complete Time: 10:41 rn 11/19 09:40 Order name: EKG; Complete Time: 09:41 rn 11/19 09:40 Order name: Accucheck; Complete Time: 10:43 rn 11/19 09:40 Order name: Cardiac monitoring; Complete Time: 09:45 rn 11/19 09:40 Order name: EKG - Nurse/Tech; Complete Time: 10:03 rn 11/19 09:40 Order name: IV Saline Lock - Large Bore; Complete Time: : rn 11/19 09:40 Order name: Labs collected and sent; Complete Time: : rn 11/19 09:40 Order name: O2 Per Protocol; Complete Time: 09:45 rn 11/19 09:40 Order name: O2 Sat Monitoring; Complete Time: :45 rn 11/19 09:40 Order name: Vital Signs; Complete Time: :45 rn Administered Medications: 10:31 Drug: NS 0.9% IV 500 ml IV at bolus once Route: IV; Rate: bolus; Site: left antecubital;ap3 11:50 Follow up: IV Status: Infusion continued; IV Intake: 500ml ap3 11:31 Drug: Rocephin IV 1 grams IV at calculated rate once; Given slow IV push per pharmacy ap3 instructions Route: IV; Rate: calculated rate; Site: left antecubital; 11:50 Follow up: IV Status: Completed infusion; IV Intake: 50ml ap3 11:50 Drug: Zithromax IVPB 500 mg IVPB once over 1 hrs; mix in 250 mL NS Route: IVPB; Infused ap3 Over: 1 hrs; Site: left antecubital; Disposition Summary: 11/19/23 11:05 Hospitalization Ordered Notes: Hospitalization Status: Inpatient Admission rn Provider: Mareg Flores rn Condition: Stable rn Problem: new rn Symptoms: are unchanged rn Bed/Room Type: Standard rn Location: Telemetry/MedSurg (Inpatient)(11/19/23 18:15) eb Room Assignment: 224(11/19/23 18:15) eb Diagnosis - Pneumonia, unspecified organism rn - Altered mental status, unspecified rn - Delirium due to known physiological condition rn Forms: - Medication Reconciliation Form rn - SBAR form rn - Leadership Thank You Letter rn Signatures: Dispatcher [employer] Maciel Eller MD MD rn Prokisch, Amanda, RN RN ap3 Andressa Cunningham Kelly, RN RN kb3 Corrections: (The following items were deleted from the chart) 09:43 09:43 PMHx: Cancer; breast; ap3 ap3 09:43 09:43 PMHx: Cancer; breast; ap3 ap3 09:43 09:43 PMHx: Cancer; breast; ap3 ap3 13:06 11:05 Telemetry/MedSurg (Inpatient) rn kb3 13:06 11:05 rn kb3 18:15 13:06 BR ER HOLD kb3 eb 18:15 13:06 ERHOLD- kb3 eb
[2023-11-19] MEDS ORDERED: AZITHROMYCIN 500 MG INJ IVPB ONE (11:09)
[2023-11-19] MEDS ORDERED: CEFTRIAXONE 1000 MG/VIAL ONE (11:09)
[2023-11-19] MEDS ORDERED: NA CHLORIDE 0.9% 50 ML ONE (11:10)
[2023-11-19] MEDS ORDERED: NA CHLORIDE 0.9% 250 ML ONE ×2 (11:10→14:59)
[2023-11-19] MEDS ORDERED: MAGNESIUM HYDROXIDE 8% 30 ML PO PRN (11:41)
[2023-11-19] MEDS ORDERED: IPRATROPIUM BROM 0.5MG/2.5ML NEB PRN ×2 (11:41→13:00)
[2023-11-19] MEDS ORDERED: HYDROCODONE/APAP 5/325 MG TAB PO PRN (11:41)
[2023-11-19] MEDS ORDERED: ALBUTEROL 2.5 MG/3 ML NEB SOL NEB PRN ×2 (11:41)
[2023-11-19] MEDS ORDERED: ACETAMINOPHEN 500 MG TAB PO PRN (11:41)
[2023-11-19] MEDS ORDERED: SODIUM CHLORIDE 0.9% 10ML INJ IV PRN (11:48)
--- NOTE | 2023-11-19 11:55 | P.HP ---
Certification for Inpatient With expected LOS: <2 Midnights Patient will require the following post-hospital care: None Practitioner: I am a practitioner with admitting privileges, knowledge of patient current condition, hospital course, and medical plan of care. Services: Services provided to patient in accordance with Admission requirements found in Title 42 Section 412.3 of the Code of Federal Regulations <Kinjal Rosario - Last Filed: 11/19/23 11:58> Patient History Date of Service: 11/19/23 Reason for admission: AMS, Pneumonia History of Present Illness: Ms. Nevarez 78-year-old female with a past medical history of diabetes type 2, hypertension, DVT, hypothyroidism presented to the emergency room via ambulatory with complaints of hallucinations and generalized weakness. Patient's helping with the history. Symptoms of confusion and disorientation started this morning. Associated symptoms include feeling cold, tired and weak. Patient denies fever, dysuria abdominal pain, nausea or vomiting. Patient denies chest pain, cough or shortness of breath. Reports similar episodes in the past with UTIs.. 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 ED course Vital signs blood pressure 142/52, pulse 87, respiration 19, temperature 97.4, pulse ox 91% on room air weight 49.9 kg, height 4.11 inches, pain 0 out of 10. Laboratory evaluation CBC glucose ptosis WBC at 12.3, metabolic panel shows elevated BUN 34, creatinine 1.68, low GFR 31, hyper glycemia blood sugar blood glucose 192, normal lactic acid at 1.6 chest x-ray showing bilateral pulmonary opacities. Admitting the patient with a diagnosis of bilateral pneumonia, altered mental status, delirium due to known physiological condition. - Past Medical/Surgical History Has patient received pneumonia vaccine in the past: Yes Diabetic: Yes -: NEUROPATHY -: HTN -: HYPERLIPEDEMIA -: DM TYPE II -: HYPOTHROIDISM -: KIDNEY STONES -: BREAST CANCER -: BLOOD CLOTS-both legs -: double pne x2 -: Right MASTECTOMY -: JASMINA -: X3 -: cataract s/x Psychosocial/ Personal History: Lives at home with her - Family History Mother -: Heart disease, Diabetes Father -: Hypertension Notes: colon cancer - Social History Smoking Status: Never smoker Alcohol use: Yes CD- Drugs: No Caffeine use: Yes Place of Residence: Home <Kinjal Rosario - Last Filed: 11/19/23 11:58> Date of Service: 11/19/23 <EloisajessMarge quinn Siomara - Last Filed: 11/19/23 14:24> Allergies No Known Allergies Allergy (Verified 02/24/19 23:23) Home Medications: Aspirin [Aspir-Low] 1 tab PO DAILY 02/24/19 Atorvastatin Calcium 1 tab PO DAILY 02/24/19 Glimepiride 2 tab PO BID PRN 02/24/19 Levothyroxine Sodium 1 tab PO DAILY 02/24/19 Losartan Potassium 2 tab PO DAILY 02/24/19 carvediloL [Carvedilol] 1 tab PO BID 02/24/19 Pantoprazole [Protonix Tab*] 40 mg PO DAILYAC #30 tab 02/25/19 Furosemide 20 mg PO DAILY 10/16/23 Gabapentin 1 cap PO BEDTIME 10/16/23 Letrozole [Femara*] 1 tab PO BEDTIME 10/16/23 Meloxicam 7.5 mg PO DAILY PRN 10/16/23 OLANZapine [Olanzapine] 2.5 mg PO BEDTIME 10/16/23 Orphenadrine Citrate [Orphenadrine Citrate ER] 1 tab PO BEDTIME 10/16/23 Sennosides [Senna Lax] 2 tab PO DAILY PRN 10/16/23 Tramadol HCl [Ultram] 1 tab PO DAILY PRN 10/16/23 Albuterol Neb [Proventil 0.083% Neb Soln] 2.5 mg NEB [id number] PRN #60 amp 10/18/23 Ipratropium Neb [Atrovent*] 0.5 mg NEB [id number] #60 amp 10/18/23 Nebulizer 1 each MC DAILY #1 ea 10/18/23 Nebulizer Accessories [Aeroneb Go] 1 each MC DAILY #1 ea 10/18/23 predniSONE [Prednisone*] 20 mg PO BID #11 tab 10/18/23 Atorvastatin Calcium [Lipitor*] 20 mg PO BEDTIME tab 10/31/23 Furosemide [Lasix*] 20 mg PO DAILY tab 10/31/23 Losartan Potassium [Cozaar*] 25 mg PO DAILY 10/31/23 carvediloL [Coreg*] 25 mg PO BID 6AM 6PM tab 10/31/23 Review of Systems 10-point ROS is otherwise unremarkable <Kinjal Rosario - Last Filed: 11/19/23 11:58> Physical Examination - Physical Exam General: Alert, Oriented x3 HEENT: Atraumatic, Normocephalic Neck: Supple, 2+ carotid pulse no bruit Respiratory: Clear to auscultation bilaterally, Normal air movement Cardiovascular: No edema, Normal pulses Capillary refill: <2 Seconds Gastrointestinal: Normal bowel sounds, Soft and benign Musculoskeletal: No clubbing, No swelling Integumentary: No rashes, No breakdown, No significant lesion Neurological: Normal speech, Normal tone, Normal affect - Studies Laboratory Data (last 24 hrs) 11/19/23 11/19/23 11/19/23 10:14 10:14 10:14 WBC 12.30 H Hgb 10.1 L Hct 30.0 L Plt Count 271 PT 13.2 H INR 1.21 APTT 33.6 Sodium 139 Potassium 4.1 BUN 34 H Creatinine 1.68 H Glucose 192 H Total Bilirubin 0.5 AST 18 ALT 12 L Alkaline Phosphatase 85 Microbiology Data (last 24 hrs): 11/19/23 10:10 Nasopharnyx Influenza Type A Antigen Screen - Final 11/19/23 10:10 Nasopharnyx Influenza Type B Antigen Screen - Final <Kinjal Rosario - Last Filed: 11/19/23 11:58> - Studies Laboratory Data (last 24 hrs) 11/19/23 11/19/23 11/19/23 10:14 10:14 10:14 WBC 12.30 H Hgb 10.1 L Hct 30.0 L Plt Count 271 PT 13.2 H INR 1.21 APTT 33.6 Sodium 139 Potassium 4.1 BUN 34 H Creatinine 1.68 H Glucose 192 H Total Bilirubin 0.5 AST 18 ALT 12 L Alkaline Phosphatase 85 Microbiology Data (last 24 hrs): 11/19/23 10:10 Nasopharnyx Influenza Type A Antigen Screen - Final 11/19/23 10:10 Nasopharnyx Influenza Type B Antigen Screen - Final <Marge Flores - Last Filed: 11/19/23 14:24> Assessment and Plan - Problems (Diagnosis) (1) Pneumonia Current Visit: Yes Status: Acute Qualifiers: Pneumonia type: due to unspecified organism Laterality: bilateral Lung location: unspecified part of lung Qualified Code(s): J18.9 - Pneumonia, unspecified organism (2) AMS (altered mental status) Current Visit: Yes Status: Acute Qualifiers: Altered mental status type: transient alteration of awareness Qualified Code(s): R40.4 - Transient alteration of awareness (3) Delirium due to known physiological condition Current Visit: Yes Status: Acute (4) CKD (chronic kidney disease) stage 3, GFR 30-59 ml/min Current Visit: Yes Status: Chronic Qualifiers: Chronic kidney disease stage 3 subtype: stage 3b (GFR 30-44) Qualified Code(s): N18.32 - Chronic kidney disease, stage 3b (5) DM type 2 causing CKD stage 3 Current Visit: Yes Status: Chronic Qualifiers: Diabetes mellitus longterm insulin use: without longterm use Chronic kidney disease stage 3 subtype: stage 3b (GFR 30-44) Qualified Code(s): E11.22 - Type 2 diabetes mellitus with diabetic chronic kidney disease; N18.32 - Chronic kidney disease, stage 3b (6) HTN (hypertension) Current Visit: Yes Status: Chronic Qualifiers: Hypertension type: renovascular hypertension Qualified Code(s): I15.0 - Renovascular hypertension (7) Hypothyroid Current Visit: Yes Status: Chronic Qualifiers: Hypothyroidism type: acquired Qualified Code(s): E03.9 - Hypothyroidism, unspecified - Plan Pneumonia, leukocytosis, Bilateral pulmonary opacities Altered mental status Delirium * Admitted with complaints of hallucination and generalized weakness * Elevated WBCs likely due to CAP * Vital signs blood pressure 142/52, pulse 87, respiration 19, temperature 97.4, pulse ox 91% on room air * Started on IV fluids, IV antibiotics, PPI and electrolyte management as needed * Patient is alert and oriented, responding to questions appropriately CKD stage IIIb: * Chronic worsening CKD, metabolic panel shows elevated BUN 34, creatinine 1.68, low GFR 31, hyper glycemia blood sugar blood glucose 192, normal lactic acid at 1.6, will follow-up with Dr. Hawkins for further recommendation * Avoid nephrotoxins, NSAIDs * Renal dose medications Type 2 diabetesand NIDDM * Chronic, controlled on glimepiride at home denies hypoglycemic episodes * Blood sugar check before meals and at bedtime with a sliding scale regular insulin low-dose * Hypoglycemic precautions * ADA diet Hypertension * Chronic, controlled . No will reconcile the home medication and continue meds as appropriate * metabolic panel shows elevated BUN 34, creatinine 1.68, low GFR 31, hyper glycemia blood sugar blood glucose 192, normal lactic acid at 1.6 Hypothyroid * Chronic, continue current home medications CODE STATUS-full code DVT prophylaxisheparin Diet-ADA Discharge Plan: Home Plan to discharge in: 48 Hours - Advance Directives Does patient have a Living Will: No Does patient have a Durable POA for Healthcare: Yes - Code Status/Comfort Care Code Status Assessed: Yes (full code) Code Status: Full Code Physician Review: Patient Assessed, Agree with Above Assessment and Plan Critical Care: No Time Spent Managing Pts Care (In Minutes): 55 (minutes) <Kinjal Rosario - Last Filed: 11/19/23 11:58> - Plan Pt seen and examined. I agree with the note by the SALESPERSON HANDBAGS. Pt is a 78yo female with past medical history of diabetes type 2, hypertension, DVT, hypothyroidism presents with confusion/ hallucination and generalized weakness. 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 This history is from pt's at bedside who reports that pt became confused and was talking about other people who were not physically in the room. The brought her to the ER for evaluation. On admission, lab studies show WBC 12.3, Hgb 10.1, NA 139, K 4.1, Cr 1.68. lactate 1.6. CXR shows bilateral pulm opacities. Of note, pt was discharged on 11/01/23 after treatment for pneumonia and constipation. At bedside, pt appears weak. ROS is limited A/P: Sepsis 2/2 Bilateral pneumonia: Will continue renally dosed iv vanc and zosyn for HCAP. Follow up blood cx. Will continue prn duoneb and 1L BNC. lactate is 1.6 Acute encephalopathy: Likely du eto infection. Will continue treatment stated above. Urinalysis is pending Acute resp failure with hypoxia: Du eto pna. Will continue treatment stated above DM II: continue accuchek, SSI and ADA diet. CKD stage 3B; cr is 1.68. Will avoid nephrotoxins, continue IVF and monitor renal function Htn: BP is hypotensive. Will monitor for now. Hypothyroidism: Synthroid. DVT ppx: SCD Code: full <Marge Flores - Last Filed: 11/19/23 14:24>
[2023-11-19] MEDS ORDERED: NA CHLORIDE 0.9% 1,000 ML IV SCH (12:00)
[2023-11-19 12:06] LABS: Blood Morphology Comment NOT SEEN (NOT SEEN); Platelet Estimate ADEQ; White Blood Cell Scan OK (OK)
[2023-11-19] MEDS ORDERED: CEFTRIAXONE 1,000 MG in NA CHLORIDE 0.9% 50 ML IVPB SCH (13:00)
[2023-11-19] MEDS ORDERED: AZITHROMYCIN IV 500 MG in NA CHLORIDE 0.9% 250 ML IVPB SCH (13:00)
[2023-11-19] MEDS ORDERED: PANTOPRAZOLE 40 MG INJ IVP SCH (13:00)
[2023-11-19] MEDS ORDERED: VANCOMYCIN 1 GM in NA CHLORIDE 0.9% 250 ML IVPB SCH (14:30)
[2023-11-19] MEDS ORDERED: NA CHLORIDE 0.9% 1,000 ML IV ONE (14:30)
[2023-11-19] MEDS: PIPER TAZO 3.375 GM in NA CHLORIDE 0.9% 100 ML IV SCH ×2 (14:30→20:59)
[2023-11-19] MEDS ORDERED: PANTOPRAZOLE 40 MG INJ ONE (14:58)
[2023-11-19] MEDS ORDERED: VANCOMYCIN 1 GM/VIAL ONE (14:58)
[2023-11-19] MEDS ORDERED: NA CHLORIDE 0.9% 2,000 ML ONE (14:59)
[2023-11-19] MEDS ORDERED: NA CHLORIDE 0.9% 100 ML ONE (14:59)
[2023-11-19] MEDS ORDERED: PIPERACIL/TAZO 3.375 GM VIAL IV ONE (14:59)
[2023-11-19] MEDS: INSULIN REGULAR (HUMAN) 100 UNIT/ML SQ SCH ×2 (16:30→21:00)
[2023-11-19] MEDS ORDERED: PIPER TAZO 3.375 GM in NA CHLORIDE 0.9% 100 ML IV SCH (17:00)
[2023-11-19] MEDS: NA CHLORIDE 0.9% 1,000 ML IV SCH (18:05)
--- NOTE | 2023-11-19 18:05 | P.PN ---
Nephrology note (S) See my recent consultation note from 10/29/23 for details, pt has been re- admitted due to some family reports of AMS, chills, other after recent admissions for PNA and other. WBC mildly elevated with left shift. BP is not low. Pt denies dyspnea but is on LFNC. Denies cough. Denies N/V/D. (O) vitals reviewed in the EMR General: Alert, In no apparent distress HEENT: Atraumatic, Normocephalic Neck: Supple Respiratory: Normal air movement, no rales anteriorly Cardiovascular: No edema, non tachy, no loud murmurs Gastrointestinal: Soft and benign, Non-distended, No tenderness, No guarding Musculoskeletal: No tenderness, No warmth Integumentary: No rashes Neurological: Normal speech, Normal tone, Normal affect Labs reviewed in the EMR Conclusions/Impression: A/P) 1. Stage 1 STACY episodes (recurrent) 2nd likely to some pre-renal element, relative BP lowering and concurrent use of ARB/diuretics/NSAIDs possibly, on underlying CKD Stage III potentially given elevated Cr levels in the past. Prior Stage III ARF episode several years ago in . It appears pt may have been sent out on some of the same culprit meds on the prior admission. Cr level had trended to ULN prior to discharge on 11/02. Cont gentle hydration and trend renal function tests. 2. Renal imaging prev did not show any obstructive uropathy or renal parenchymal lesions 3. Chronic HTN with hx of hypotension. Prior echo showed mild diastolic dysfunction. Ok to liberalize BP target 4. UA on admission not too remarkable 5. Abnormal radiographic findings but appear to be similar to those seen last mo. Rise in WBC from earlier in the mo, left shift. Will defer to IM to review, consider CT scan if needed to eval further Jarrod Billy MD, JOSIE
[2023-11-19] MEDS: HEPARIN 5000 UNIT/ML 1 ML VIAL SQ SCH (20:59)
[2023-11-19] MEDS ORDERED: VANCOMYCIN 0.75 GM in NA CHLORIDE 0.9% 150 ML IVPB SCH (21:00)
[2023-11-19 21:45] VITALS: BMI 22.2
[2023-11-19] MEDS ORDERED: MELATONIN 5 MG TABLET PO ONE (22:07)
[2023-11-19 22:34] LABS: Specific Gravity 1.008 (1.005-1.030); Urine Bilirubin NEGATIVE (Negative); Urine Blood Negative (Negative); Urine Clarity Clear (Clear); Urine Color Colorless (Yellow); Urine Glucose NEGATIVE (Negative); Urine Protein NEGATIVE (Negative); Urine Urobilinogen Normal (Normal)
[2023-11-20] MEDS: HEPARIN 5000 UNIT/ML 1 ML VIAL SQ SCH ×3 (01:56→17:09)
[2023-11-20 04:02] LABS: Absolute Lymphocytes (CBC) 0.8 K/uL (0.7-4.9); Hematocrit 26.2 % (36.0-45.0); Lymphocytes % 7.3 % (15.3-44.8); MCV 97.8 fL (80-100); MPV 8.5 fL (7.6-11.3); Platelets 216 thou/uL (152-406); RBC Red Blood Cell Count 2.68 M/uL (3.86-4.86)
[2023-11-20 04:14] LABS: Magnesium 1.7 mg/dL (1.6-2.4); Phosphorus 3.2 mg/dL (2.5-4.9); Potassium 3.7 mEq/L (3.5-5.1)
[2023-11-20] MEDS ORDERED: MAGNESIUM SULFATE 1 gm IVPB 1 GM/100 ML BAG IV ONE (07:00)
[2023-11-20] MEDS: NA CHLORIDE 0.9% 1,000 ML IV SCH ×3 (07:25→20:45)
[2023-11-20] MEDS: INSULIN REGULAR (HUMAN) 100 UNIT/ML SQ SCH ×4 (07:30→21:00)
[2023-11-20] MEDS: PIPER TAZO 3.375 GM in NA CHLORIDE 0.9% 100 ML IV SCH ×2 (08:35→21:29)
[2023-11-20] MEDS: ASPIRIN EC 81 MG TAB PO SCH (08:38)
[2023-11-20] MEDS: FUROSEMIDE 20 MG TABLET PO SCH (08:40)
[2023-11-20] MEDS: LOSARTAN POTASSIUM 50 MG TABLET PO SCH (08:40)
[2023-11-20] MEDS ORDERED: HOME MED 1 EA UNK (Losartan Potassium [Losartan Potassium] 25 MG Tablet) PO SCH (09:00)
[2023-11-20] MEDS ORDERED: ASPIRIN 81 MG PO SCH (09:00)
[2023-11-20] MEDS ORDERED: POTASSIUM CL SA 10 MEQ TAB PO ONE (09:00)
--- NOTE | 2023-11-20 11:42 | P.PN ---
Subjective Date of Service: 11/20/23 Chief Complaint: AMS, Pneumonia Subjective: No new changes, Improving, Doing well Patient is alert and oriented x 3 Resting in the bed NAD Denies any pain or shortness of breath Vital stable <Kinjal Rosario - Last Filed: 11/20/23 11:44> Date of Service: 11/21/23 <Marge Flores - Last Filed: 11/21/23 10:05> Review of Systems 10-point ROS is otherwise unremarkable <Kinjal Rosario - Last Filed: 11/20/23 11:44> Physical Examination - Vital Signs Temperature: 97.6 F Blood Pressure: 98/59 Pulse: 75 Respirations: 20 Pulse Ox (%): 96 - Physical Exam General: Alert, Oriented x3 HEENT: Atraumatic, Normocephalic Neck: Supple, 2+ carotid pulse no bruit Respiratory: Clear to auscultation bilaterally, Normal air movement Cardiovascular: No edema, Normal pulses Capillary refill: <2 Seconds Gastrointestinal: Normal bowel sounds, Soft and benign Musculoskeletal: No clubbing, No swelling Integumentary: No rashes, No breakdown Neurological: Normal gait, Normal speech, Normal tone, Normal affect - Studies Microbiology Data (last 24 hrs): 11/19/23 10:10 Nasopharnyx Influenza Type A Antigen Screen - Final 11/19/23 10:10 Nasopharnyx Influenza Type B Antigen Screen - Final <Kinjal Rosario - Last Filed: 11/20/23 11:44> Assessment And Plan - Current Problems (Diagnosis) (1) Pneumonia Current Visit: Yes Status: Acute Qualifiers: Pneumonia type: due to unspecified organism Laterality: bilateral Lung location: unspecified part of lung Qualified Code(s): J18.9 - Pneumonia, unspecified organism (2) AMS (altered mental status) Current Visit: Yes Status: Acute Qualifiers: Altered mental status type: transient alteration of awareness Qualified Code(s): R40.4 - Transient alteration of awareness (3) Delirium due to known physiological condition Current Visit: Yes Status: Acute (4) CKD (chronic kidney disease) stage 3, GFR 30-59 ml/min Current Visit: Yes Status: Chronic Qualifiers: Chronic kidney disease stage 3 subtype: stage 3b (GFR 30-44) Qualified Code(s): N18.32 - Chronic kidney disease, stage 3b (5) DM type 2 causing CKD stage 3 Current Visit: Yes Status: Chronic Qualifiers: Diabetes mellitus fpc insulin use: without remote computer terminal operator use Chronic kidney disease stage 3 subtype: stage 3b (GFR 30-44) Qualified Code(s): E11.22 - Type 2 diabetes mellitus with diabetic chronic kidney disease; N18.32 - Chronic kidney disease, stage 3b (6) HTN (hypertension) Current Visit: Yes Status: Chronic Qualifiers: Hypertension type: renovascular hypertension Qualified Code(s): I15.0 - Renovascular hypertension (7) Hypothyroid Current Visit: Yes Status: Chronic Qualifiers: Hypothyroidism type: acquired Qualified Code(s): E03.9 - Hypothyroidism, unspecified - Plan Pneumonia, leukocytosis, Bilateral pulmonary opacities Altered mental status Delirium * Admitted with complaints of hallucination and generalized weakness * Improving WBCs 11.5 likely due to CAP * Vital signs Stable * Continue on IV fluids, IV antibiotics, PPI and electrolyte management as needed * Patient is alert and oriented, responding to questions appropriately CKD stage IIIb: * Chronic worsening CKD, metabolic panel shows elevated BUN 34-->27, creatinine 1.68--->1.26, low GFR 31-->44, will follow-up with Dr. Hawkins for further recommendation * Avoid nephrotoxins, NSAIDs * Renal dose medications Type 2 diabetesand NIDDM * Chronic, controlled on glimepiride at home denies hypoglycemic episodes * Blood sugar check before meals and at bedtime with a sliding scale regular insulin low-dose * Hypoglycemic precautions * ADA diet Hypertension * Chronic, controlled . No will reconcile the home medication and continue meds as appropriate * metabolic panel shows elevated BUN 34, creatinine 1.68, low GFR 31, hyper glycemia blood sugar blood glucose 192, normal lactic acid at 1.6 Hypothyroid * Chronic, continue current home medications CODE STATUS-full code DVT prophylaxisheparin Diet-ADA Physician Review: Patient Assessed, Agree with Above Assessment and Plan <Kinjal Rosario - Last Filed: 11/20/23 11:44> - Plan Pt seen and examined. I agree with the note by the PLC CONTROLS ENGINEER. Continue iv vanc and zosyn for HCAP. <Marge Flores - Last Filed: 11/21/23 10:05>
[2023-11-20] MEDS: VANCOMYCIN 0.75 GM in NA CHLORIDE 0.9% 150 ML IVPB SCH (14:50)
[2023-11-20] MEDS: carvediloL 25 MG TAB PO SCH (17:09)
[2023-11-20] MEDS ORDERED: LABETALOL 20 MG/4ML SYRINGE IV ONE (20:47)
[2023-11-20] MEDS: ATORVASTATIN 20 MG TAB PO SCH (21:29)
[2023-11-20] MEDS: MELATONIN 5 MG TABLET PO SCH (21:29)
[2023-11-20] MEDS: OLANZapine 2.5 MG TAB PO SCH (21:30)
[2023-11-20] MEDS ORDERED: MELATONIN 5 MG TABLET PO ONE (21:58)
[2023-11-21] MEDS: HEPARIN 5000 UNIT/ML 1 ML VIAL SQ SCH ×3 (00:26→18:17)
[2023-11-21 03:01] LABS: Absolute Lymphocytes (CBC) 0.7 K/uL (0.7-4.9); Hematocrit 24.9 % (36.0-45.0); Lymphocytes % 7.9 % (15.3-44.8); MCV 96.4 fL (80-100); MPV 8.5 fL (7.6-11.3); Platelets 190 thou/uL (152-406); RBC Red Blood Cell Count 2.58 M/uL (3.86-4.86)
[2023-11-21 03:14] LABS: Potassium 3.9 mEq/L (3.5-5.1)
[2023-11-21 03:27] LABS: Thyroid Stimulating Hormone 4.91 uIU/mL (0.358-3.740)
[2023-11-21] MEDS: PANTOPRAZOLE 40MG TABLET PO SCH (06:05)
[2023-11-21] MEDS: carvediloL 25 MG TAB PO SCH ×2 (06:05→18:17)
[2023-11-21] MEDS: LEVOTHYROXINE SOD 0.025 MG TAB PO SCH (06:06)
[2023-11-21] MEDS: NA CHLORIDE 0.9% 1,000 ML IV SCH ×4 (06:08→23:25)
[2023-11-21] MEDS: INSULIN REGULAR (HUMAN) 100 UNIT/ML SQ SCH ×4 (07:30→21:00)
[2023-11-21] MEDS ORDERED: POTASSIUM CL SA 10 MEQ TAB PO ONE (09:00)
[2023-11-21] MEDS: LOSARTAN POTASSIUM 50 MG TABLET PO SCH (09:36)
[2023-11-21] MEDS: FUROSEMIDE 20 MG TABLET PO SCH (09:36)
[2023-11-21] MEDS: PIPER TAZO 3.375 GM in NA CHLORIDE 0.9% 100 ML IV SCH ×2 (09:37→21:26)
[2023-11-21] MEDS: ASPIRIN EC 81 MG TAB PO SCH (09:37)
--- NOTE | 2023-11-21 12:18 | PN ---
Subjective: The patient seen in room 224. A 78-year-old female. The patient currently looks comfor table. Denies any headache, nausea. She feels a little bit better when compared to yesterday. Objective: Vital Signs: Stable. Blood pressure last was 147/68, pulse is 71 and regular, respirati ons around 12-13. Glucose last was 119. Lungs: Clear anteriorly. Abdomen: Soft. Extremities: No significant edema. Neurologic: The patient is able to communicate and answer questions. Heart: Sounds are regular. Lab Data: Reviewed. Labs show sodium 140, potassium 3.9, chloride 113, bicarb is 21, BUN and creati nine have improved. Creatinine has gone down from 1.26 to 1.04. TSH last was 4.9. Assessment And Plan: Acute kidney injury on top of chronic kidney disease, potentially at about CKD 3A, could be re-evaluated for baseline once acute issues resolve. Currently acute issues are resolvi ng. From the kidney point of view, the patient is doing well. Creatinine is down to 1.04. Continue to avoid nephrotoxins, NSAIDs. Avoid using dye in this patient unless absolutely necessary. /IDALIA Voice ID: [id number] Report ID: [id number]
[2023-11-21] MEDS: VANCOMYCIN 0.75 GM in NA CHLORIDE 0.9% 150 ML IVPB SCH (15:28)
--- NOTE | 2023-11-21 18:24 | P.PN ---
Subjective Date of Service: 11/21/23 Chief Complaint: AMS, Pneumonia Subjective: No new changes, Improving, Doing well Patient is alert and oriented x 3 Resting in the bed NAD Denies any pain or shortness of breath Vital stable 1 episode of hypoglycemia this morning blood sugar of 51 <Kinjal Rosario - Last Filed: 11/21/23 18:22> Date of Service: 11/22/23 <Marge Flores Siomara - Last Filed: 11/22/23 19:50> Review of Systems 10-point ROS is otherwise unremarkable <Kinjal Rosario - Last Filed: 11/21/23 18:22> Physical Examination - Vital Signs Temperature: 98.2 F Blood Pressure: 166/94 Pulse: 74 Respirations: 18 Pulse Ox (%): 95 - Physical Exam General: Alert, Oriented x3 HEENT: Atraumatic, Normocephalic Neck: Supple, 2+ carotid pulse no bruit Respiratory: Clear to auscultation bilaterally, Normal air movement Cardiovascular: No edema, Normal pulses Capillary refill: <2 Seconds Gastrointestinal: Normal bowel sounds, Soft and benign Musculoskeletal: No clubbing, No swelling, No contractures Integumentary: No rashes, No breakdown Neurological: Normal speech, Normal tone <Kinjal Rosario - Last Filed: 11/21/23 18:22> Assessment And Plan - Current Problems (Diagnosis) (1) Pneumonia Status: Acute Qualifiers: Pneumonia type: due to unspecified organism Laterality: bilateral Lung location: unspecified part of lung Qualified Code(s): J18.9 - Pneumonia, unspecified organism (2) AMS (altered mental status) Status: Acute Qualifiers: Altered mental status type: transient alteration of awareness Qualified Code(s): R40.4 - Transient alteration of awareness (3) Delirium due to known physiological condition Status: Acute (4) CKD (chronic kidney disease) stage 3, GFR 30-59 ml/min Status: Chronic Qualifiers: Chronic kidney disease stage 3 subtype: stage 3b (GFR 30-44) Qualified Code(s): N18.32 - Chronic kidney disease, stage 3b (5) DM type 2 causing CKD stage 3 Status: Chronic Qualifiers: Diabetes mellitus skilled nursing insulin use: without terminal press operator use Chronic kidney disease stage 3 subtype: stage 3b (GFR 30-44) Qualified Code(s): E11.22 - Type 2 diabetes mellitus with diabetic chronic kidney disease; N18.32 - Chroni c kidney disease, stage 3b (6) HTN (hypertension) Status: Chronic Qualifiers: Hypertension type: renovascular hypertension Qualified Code(s): I15.0 - Renovascular hypertension (7) Hypothyroid Status: Chronic Qualifiers: Hypothyroidism type: acquired Qualified Code(s): E03.9 - Hypothyroidism, unspecified - Plan Pneumonia, leukocytosis, Bilateral pulmonary opacities Altered mental status Delirium * Admitted with complaints of hallucination and generalized weakness * Improving WBCs 11.5 likely due to CAP * Vital signs Stable * Continue on IV fluids, IV antibiotics, PPI and electrolyte management as needed * Patient is alert and oriented, responding to questions appropriately CKD stage IIIb: * Chronic worsening CKD, metabolic panel shows elevated BUN 34-->27, creatinine 1.68--->1.26, low GFR 31-->44, will follow-up with Dr. Hawkins for further recommendation * Avoid nephrotoxins, NSAIDs * Renal dose medications Type 2 diabetesand NIDDM * Chronic, controlled on glimepiride at home. 1 episode of hypoglycemiA this morning blood sugar 51. Patient took oral glucose feeling better now will monitor the blood sugar closely * Blood sugar check before meals and at bedtime with a sliding scale regular insulin low-dose * Hypoglycemic precautions * ADA diet Hypertension * Chronic, controlled . No will reconcile the home medication and continue meds as appropriate * metabolic panel shows elevated BUN 34, creatinine 1.68, low GFR 31, hyper glycemia blood sugar blood glucose 192, normal lactic acid at 1.6 Hypothyroid * Chronic, continue current home medications CODE STATUS-full code DVT prophylaxisheparin Diet-ADA Physician Review: Patient Assessed, Agree with Above Assessment and Plan <Kinjal Rosario - Last Filed: 11/21/23 18:22> - Plan Pt seen and examined. I agree with the note by the RESIDENTIAL SPECIALIST. Continue IV vanc xnd zosyn. Pt is feeling better. <Marge Flores - Last Filed: 11/22/23 19:50>
[2023-11-21] MEDS: MELATONIN 5 MG TABLET PO SCH (21:27)
[2023-11-21] MEDS: OLANZapine 2.5 MG TAB PO SCH (21:27)
[2023-11-21] MEDS: ATORVASTATIN 20 MG TAB PO SCH (21:27)
[2023-11-22] MEDS: HEPARIN 5000 UNIT/ML 1 ML VIAL SQ SCH ×2 (00:11→09:08)
[2023-11-22] MEDS: LEVOTHYROXINE SOD 0.025 MG TAB PO SCH (05:32)
[2023-11-22] MEDS: carvediloL 25 MG TAB PO SCH (05:32)
[2023-11-22] MEDS: PANTOPRAZOLE 40MG TABLET PO SCH (05:32)
[2023-11-22] MEDS: INSULIN REGULAR (HUMAN) 100 UNIT/ML SQ SCH ×2 (07:30→11:30)
[2023-11-22 07:42] LABS: Absolute Lymphocytes (CBC) 0.8 K/uL (0.7-4.9); Hematocrit 27.3 % (36.0-45.0); Lymphocytes % 13.2 % (15.3-44.8); MPV 8.1 fL (7.6-11.3); Platelets 186 thou/uL (152-406); RBC Red Blood Cell Count 2.85 M/uL (3.86-4.86)
[2023-11-22 08:01] LABS: Potassium 3.7 mEq/L (3.5-5.1)
[2023-11-22] MEDS: PIPER TAZO 3.375 GM in NA CHLORIDE 0.9% 100 ML IV SCH (09:07)
[2023-11-22] MEDS: LOSARTAN POTASSIUM 50 MG TABLET PO SCH (09:08)
[2023-11-22] MEDS: FUROSEMIDE 20 MG TABLET PO SCH (09:08)
[2023-11-22] MEDS: ASPIRIN EC 81 MG TAB PO SCH (09:08)
--- NOTE | 2023-11-22 09:26 | P.PN ---
Subjective Date of Service: 11/22/23 Chief Complaint: AMS, Pneumonia No reported shortness of breath - Physical Exam General: Alert, Oriented x3 HEENT: Atraumatic, Normocephalic Neck: Supple, 2+ carotid pulse no bruit Respiratory: Clear to auscultation bilaterally, Normal air movement Cardiovascular: No edema, Normal pulses Capillary refill: <2 Seconds Gastrointestinal: Normal bowel sounds, Soft and benign Musculoskeletal: No clubbing, No swelling, No contractures Integumentary: No rashes, No breakdown Neurological: Normal speech, Normal tone Review of Systems per HPI Physical Examination - Vital Signs Temperature: 97.5 F Blood Pressure: 184/75 Pulse: 73 Respirations: 15 Pulse Ox (%): 96 - Studies Laboratory Data (last 24 hrs) 11/19/23 11/19/23 11/19/23 10:14 10:14 10:14 RBC 3.12 L MCV 96.4 MCH 32.5 MCHC 33.7 RDW 16.8 H MPV 7.7 Neutrophils % 90.1 H Lymphocytes % 3.6 L Monocytes % 4.7 Eosinophils % 0.4 Basophils % 1.2 Absolute Neutrophils 11.1 H Absolute Lymphocytes 0.4 L Absolute Monocytes 0.6 Absolute Eosinophils 0.0 Absolute Basophils 0.1 Platelet Estimate Adeq Morphology Comment Not seen Chloride 109 H Carbon Dioxide 24 Anion Gap 10.1 Est GFR (CKD-EPI) 31 L Lactic Acid 1.6 Calcium 9.0 Serum Total Protein 7.1 Albumin 2.9 L Globulin 4.2 H Albumin/Globulin Ratio 0.7 L SARS-CoV-2 Ag (Rapid) Smear Scan Ok 11/19/23 10:10 RBC MCV MCH MCHC RDW MPV Neutrophils % Lymphocytes % Monocytes % Eosinophils % Basophils % Absolute Neutrophils Absolute Lymphocytes Absolute Monocytes Absolute Eosinophils Absolute Basophils Platelet Estimate Morphology Comment Chloride Carbon Dioxide Anion Gap Est GFR (CKD-EPI) Lactic Acid Calcium Serum Total Protein Albumin Globulin Albumin/Globulin Ratio SARS-CoV-2 Ag (Rapid) Negative Smear Scan Assessment And Plan - Plan Assessment Plan acute hypoxic respiratory failure secondary to pneumonia Pneumonia, leukocytosis, Bilateral pulmonary opacities Improving WBCs 11.5 likely due to CAP Continue on IV fluids, IV antibiotics, PPI and electrolyte management as needed acute on chronic heart failure elevated BNP telemetry, trend BNP, diuretics Metabolic encephalopathy like secondary to PNA fall precautions, PT eval CKD stage 3 trend kdiney function metabolic panel shows elevated BUN 34, creatinine 1.68, low GFR 31, hyper glycemia blood sugar blood glucose 192, normal lactic acid at 1.6 DM type 2 unkn control Acck HS, SSI, ADA diet Hypothyoridsim start synthroid HTN ukn controll resume home meds full code Diet Cardiac DVT heparin Discharge Plan: Home - Code Status/Comfort Care Code Status: Full Code Critical Care: No Time Spent Managing PTS Care (In Minutes): 35
[2023-11-22 09:38] VITALS: O2SAT 96
[2023-11-22] MEDS ORDERED: POTASSIUM CL SA 10 MEQ TAB PO ONE (10:08)
--- NOTE | 2023-11-22 11:01 | P.DS ---
Admission Date: 11/19/23 Discharge Date: 11/22/23 Reason for Admission: AMS, Pneumonia Vital Signs/Physical Exam: Temp Pulse Resp BP Pulse Ox 97.5 F 73 15 184/75 H 96 11/22/23 09:26 11/22/23 09:26 11/22/23 09:26 11/22/23 09:26 11/22/23 09:26 Laboratory Data at Discharge: WBC 5.70 thou/uL (4.3-10.9) 11/22/23 07:04 Hgb 9.4 g/dL (12.0-15.0) L 11/22/23 07:04 Hct 27.3 % (36.0-45.0) L 11/22/23 07:04 Plt Count 186 thou/uL (152-406) 11/22/23 07:04 PT 13.2 SECONDS (9.5-12.5) H 11/19/23 10:14 INR 1.21 11/19/23 10:14 APTT 33.6 SECONDS (24.3-36.9) 11/19/23 10:14 Sodium 141 mEq/L (136-145) 11/22/23 07:04 Potassium 3.7 mEq/L (3.5-5.1) 11/22/23 07:04 BUN 11 mg/dL (7-18) 11/22/23 07:04 Creatinine 1.06 mg/dL (0.55-1.02) H 11/22/23 07:04 Glucose 124 mg/dL (74-106) H 11/22/23 07:04 Phosphorus 3.2 mg/dL (2.5-4.9) 11/20/23 02:43 Magnesium 2.0 mg/dL (1.6-2.4) 11/21/23 02:19 Total Bilirubin 0.5 mg/dL (0.2-1.0) 11/19/23 10:14 AST 18 U/L (15-37) 11/19/23 10:14 ALT 12 U/L (13-56) L 11/19/23 10:14 Alkaline Phosphatase 85 U/L (45-117) 11/19/23 10:14 Home Medications: Aspirin [Aspir-Low] 1 tab PO DAILY 02/24/19 Glimepiride 1 tab PO BID PRN 02/24/19 Levothyroxine Sodium 1 tab PO DAILY 02/24/19 Losartan Potassium 50 mg PO DAILY 02/24/19 Pantoprazole [Protonix Tab*] 40 mg PO DAILYAC #30 tab 02/25/19 Gabapentin 1 cap PO BEDTIME 10/16/23 Letrozole [Femara*] 1 tab PO BEDTIME 10/16/23 OLANZapine [Olanzapine] 2.5 mg PO BEDTIME 10/16/23 Orphenadrine Citrate [Orphenadrine Citrate ER] 1 tab PO BEDTIME 10/16/23 Sennosides [Senna Lax] 2 tab PO DAILY PRN 10/16/23 Tramadol HCl [Ultram] 1 tab PO DAILY PRN 10/16/23 Atorvastatin Calcium [Lipitor*] 20 mg PO BEDTIME tab 10/31/23 Furosemide [Lasix*] 20 mg PO DAILY tab 10/31/23 carvediloL [Coreg*] 12.5 mg PO BID 6AM 6PM 11/19/23 Followup: Jasmyne Ochoa, HEAD BONE GRINDER [Primary Care Provider] -
--- NOTE | 2023-11-22 11:02 | P.DS ---
Admission Date: 11/19/23 Discharge Date: 11/22/23 Reason for Admission: AMS, Pneumonia Brief History of Present Illness: Ms. Nevarez 78-year-old female with a past medical history of diabetes type 2, hypertension, DVT, hypothyroidism presented to the emergency room via ambulatory with complaints of hallucinations and generalized weakness. Patient's helping with the history. Symptoms of confusion and disorientation started this morning. Associated symptoms include feeling cold, tired and weak. Patient denies fever, dysuria abdominal pain, nausea or vomiting. Patient denies chest pain, cough or shortness of breath. Reports similar episodes in the past with UTIs.. 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 - Physical Exam General: Alert, Oriented x3 HEENT: Atraumatic, Normocephalic Neck: Supple, 2+ carotid pulse no bruit Respiratory: Clear to auscultation bilaterally, Normal air movement Cardiovascular: No edema, Normal pulses Capillary refill: <2 Seconds Gastrointestinal: Normal bowel sounds, Soft and benign Musculoskeletal: No clubbing, No swelling, No contractures Integumentary: No rashes, No breakdown Neurological: Normal speech, Normal tone Hospital Course: 80-year-old female patient presented with altered mental status, pneumonia urinary tract infection. Condition improved with IV antibiotics. Stable for discharge to acute inpatient rehab with follow-up appointment with primary care physician. PROBLEM: Pneumonia Acute cystitis, UTI CKD stage III Hypothyroidism Prescriptions Augmentin, doxycycline Albuterol inhaler 1 to 2 puffs as needed for cough shortness of breath Probiotic 1 tablet twice daily while on antibiotics Continue home medicines as previously prescribed GOAL: Clear understanding of disease process INSTRUCTIONS: Physician Discharge Instructions: -DC IV and DC home -Follow-up with PCP in 1 to 2 weeks -Please call nursing station at [phone] if any nursing or medication questions -Return to the emergency room if symptoms worsen Diet: ADA, low sodium Activity: Fall precautions DME: None Date Ordered: Name of Company: [employer] Services Needed: None Date or Referral: IMMUNIZATION Influenza Vaccine Indicated: Influenza Vaccine Given: Date Given: <Merle Lynn - Last Filed: 11/22/23 13:37> Admission Date: 11/19/23 Discharge Date: 11/22/23 Hospital Course: Pt seen and examined. I agree with the note by the DEPARTMENT SUPERVISOR. Ok to discharge pt. take the abx as prescribed. <Marge Flores Siomara - Last Filed: 11/22/23 19:45> Disposition: DC HOME/HOME HEALTH CARE Discharge Condition: FAIR Vital Signs/Physical Exam: Temp Pulse Resp BP Pulse Ox 97.5 F 73 15 184/75 H 96 11/22/23 09:26 11/22/23 09:26 11/22/23 09:26 11/22/23 09:26 11/22/23 09:26 Laboratory Data at Discharge: WBC 5.70 thou/uL (4.3-10.9) 11/22/23 07:04 Hgb 9.4 g/dL (12.0-15.0) L 11/22/23 07:04 Hct 27.3 % (36.0-45.0) L 11/22/23 07:04 Plt Count 186 thou/uL (152-406) 11/22/23 07:04 PT 13.2 SECONDS (9.5-12.5) H 11/19/23 10:14 INR 1.21 11/19/23 10:14 APTT 33.6 SECONDS (24.3-36.9) 11/19/23 10:14 Sodium 141 mEq/L (136-145) 11/22/23 07:04 Potassium 3.7 mEq/L (3.5-5.1) 11/22/23 07:04 BUN 11 mg/dL (7-18) 11/22/23 07:04 Creatinine 1.06 mg/dL (0.55-1.02) H 11/22/23 07:04 Glucose 124 mg/dL (74-106) H 11/22/23 07:04 Phosphorus 3.2 mg/dL (2.5-4.9) 11/20/23 02:43 Magnesium 2.0 mg/dL (1.6-2.4) 11/21/23 02:19 Total Bilirubin 0.5 mg/dL (0.2-1.0) 11/19/23 10:14 AST 18 U/L (15-37) 11/19/23 10:14 ALT 12 U/L (13-56) L 11/19/23 10:14 Alkaline Phosphatase 85 U/L (45-117) 11/19/23 10:14 <Merle Lynn Last Filed: 11/22/23 13:37> Vital Signs/Physical Exam: Temp Pulse Resp BP Pulse Ox 97.6 F 73 16 140/70 96 11/22/23 12:00 11/22/23 12:00 11/22/23 12:00 11/22/23 12:00 11/22/23 12:00 Laboratory Data at Discharge: WBC 5.70 thou/uL (4.3-10.9) 11/22/23 07:04 Hgb 9.4 g/dL (12.0-15.0) L 11/22/23 07:04 Hct 27.3 % (36.0-45.0) L 11/22/23 07:04 Plt Count 186 thou/uL (152-406) 11/22/23 07:04 PT 13.2 SECONDS (9.5-12.5) H 11/19/23 10:14 INR 1.21 11/19/23 10:14 APTT 33.6 SECONDS (24.3-36.9) 11/19/23 10:14 Sodium 141 mEq/L (136-145) 11/22/23 07:04 Potassium 3.7 mEq/L (3.5-5.1) 11/22/23 07:04 BUN 11 mg/dL (7-18) 11/22/23 07:04 Creatinine 1.06 mg/dL (0.55-1.02) H 11/22/23 07:04 Glucose 124 mg/dL (74-106) H 11/22/23 07:04 Phosphorus 3.2 mg/dL (2.5-4.9) 11/20/23 02:43 Magnesium 2.0 mg/dL (1.6-2.4) 11/21/23 02:19 Total Bilirubin 0.5 mg/dL (0.2-1.0) 11/19/23 10:14 AST 18 U/L (15-37) 11/19/23 10:14 ALT 12 U/L (13-56) L 11/19/23 10:14 Alkaline Phosphatase 85 U/L (45-117) 11/19/23 10:14 <Marge Flores - Last Filed: 11/22/23 19:45> Diet: Renal Activity: Weight bearing as tolerated Time spent managing pt's care (in minutes): 55 <Merle Lynn - Last Filed: 11/22/23 13:37> <Marge Flores - Last Filed: 11/22/23 19:45> Home Medications: Aspirin [Aspir-Low] 1 tab PO DAILY 02/24/19 Glimepiride 1 tab PO BID PRN 02/24/19 Levothyroxine Sodium 1 tab PO DAILY 02/24/19 Losartan Potassium 50 mg PO DAILY 02/24/19 Pantoprazole [Protonix Tab*] 40 mg PO DAILYAC #30 tab 02/25/19 Gabapentin 1 cap PO BEDTIME 10/16/23 Letrozole [Femara*] 1 tab PO BEDTIME 10/16/23 OLANZapine [Olanzapine] 2.5 mg PO BEDTIME 10/16/23 Orphenadrine Citrate [Orphenadrine Citrate ER] 1 tab PO BEDTIME 10/16/23 Sennosides [Senna Lax] 2 tab PO DAILY PRN 10/16/23 Tramadol HCl [Ultram] 1 tab PO DAILY PRN 10/16/23 Atorvastatin Calcium [Lipitor*] 20 mg PO BEDTIME tab 10/31/23 Furosemide [Lasix*] 20 mg PO DAILY tab 10/31/23 carvediloL [Coreg*] 12.5 mg PO BID 6AM 6PM 11/19/23 Albuterol Sulfate [Albuterol Sulfate Hfa] 8.5 gm IH Q6H PRN 14 Days #1 inh 11/22/23 Amox/Clavulanate [Augmentin 875-125 Tab] 1 each PO BID 3 Days #6 tab 11/22/23 Atorvastatin Calcium [Lipitor*] 20 mg PO BEDTIME tab 11/22/23 Doxycycline Hyclate 100 mg PO BID 3 Days #6 tab 11/22/23 Furosemide [Lasix 40 MG INJ*] 40 mg IV BIDL vial 11/22/23 Hydrocodone 5/APAP 325 [Max 5/325*] 1 tab PO Q6H PRN tab 11/22/23 Lactobacillus Acidophilus [Acidophilus Lactobacilli] 1 each PO BID 7 Days #14 tab 11/22/23 Losartan Potassium [Cozaar*] 50 mg PO DAILY 11/22/23 Mag Hydroxide 8% [Milk Of Magnesia*] 30 ml PO DAILYPRN PRN 11/22/23 Melatonin 5 mg PO BEDTIME 11/22/23 OLANZapine [Zyprexa*] 2.5 mg PO BEDTIME tab 11/22/23 Pharmacy Consult 1 ea XX DAILYPRN PRN ea 11/22/23 Vitamin D [Drisdol*] 50,000 unit PO Q7D@0900 cap 11/22/23 New Medications: Lactobacillus Acidophilus [Acidophilus Lactobacilli] 1 each PO BID 7 Days #14 tab Albuterol Sulfate [Albuterol Sulfate Hfa] 8.5 gm IH Q6H PRN 14 Days #1 inh PRN Reason: Cough Amox/Clavulanate [Augmentin 875-125 Tab] 1 each PO BID 3 Days #6 tab Doxycycline Hyclate 100 mg PO BID 3 Days #6 tab Physician Discharge Instructions: Continue ad giovani activity. Take Augmentin and Doxycycline for 3 more days. Follow up with PCP in 1 - 2 weeks Followup: Jasmyne Ochoa NP [Primary Care Provider] -
[2023-11-22] MEDS ORDERED: HYDRALAZINE HCL 20 MG/ML VIAL IV ONE (11:16)
[2023-11-22 12:36] VITALS: TEMP 97.6
[2023-11-22] MEDS ORDERED: DOXYCYCLINE 100 MG CAP PO SCH (13:00)
[2023-11-22] MEDS ORDERED: AMOX/K CLAV 875 MG TAB PO SCH (13:00)
[2023-11-22] MEDS ORDERED: VANCOMYCIN 1 GM in NA CHLORIDE 0.9% 250 ML IVPB SCH (14:00)
[2023-11-22 14:27] VITALS: BP 140/70
[2023-11-22] MEDS ORDERED: FUROSEMIDE 40 MG/4 ML VIAL IV SCH (17:00)
--- NOTE | 2023-11-22 17:03 | EKG ---
Test Date: 2023-11-19 Test Time: 09:59:28 Blower And Compressor Assembler: DOLORES MEASUREMENT RESULTS: Intervals: Rate: 86 CA: 122 QRSD: 110 QT: 388 QTc: 464 [place]: P: 54 CA: 122 QRS: 77 T: 46 INTERPRETIVE STATEMENTS: Normal sinus rhythm Incomplete right bundle branch block Nonspecific ST and T wave abnormality Abnormal ECG Compared to ECG 10/28/2023 11:22:07 Incomplete right bundle-branch block now present ST (T wave) deviation now present Short CA interval no longer present Right bundle-branch block no longer present Electronically Signed On 11-22-23 16:54:37 ADMINISTRATION INTERN by Pete Webber
--- NOTE | 2023-11-22 22:00 | P.PN ---
Date of Service: 11/22/23 Vital Signs Temp Pulse Resp BP Pulse Ox 97.6 F 73 16 140/70 96 11/22/23 12:00 11/22/23 12:00 11/22/23 12:00 11/22/23 12:00 11/22/23 12:00 Microbiology Results 11/19/23 11:27 Blood - Blood Aerobic Blood Culture - Preliminary No growth in 24 hours. 11/19/23 11:27 Blood - Blood Anaerobic Blood Culture - Preliminary No growth in 24 hours. 11/19/23 10:14 Blood - Blood Aerobic Blood Culture - Preliminary No growth in 24 hours. 11/19/23 10:14 Blood - Blood Anaerobic Blood Culture - Preliminary No growth in 24 hours. 11/19/23 10:10 Nasopharnyx Influenza Type A Antigen Screen - Final 11/19/23 10:10 Nasopharnyx Influenza Type B Antigen Screen - Final Assessment/ Plan: Nephrology No dyspnea No chest pain Feeling better No acute events overnight Vitals, medications, blood work and imaging reviewed in the chart NAD. MMM. NCAT. Normal Respiratory Effort. S1S2. ND Abd. No C/C/E. No rash. AAO. Normal speech. darrenrice LEFT VENTRICULAR WALL MOTION: NORMAL DOPPLER/COLOR FLOW: SEE BELOW COMMENTS: 1. NORMAL LEFT VENTRICULAR EJECTION FRACTION 55-60% WITH NORMAL WALL MOTION. 2. GRADE I DIASTOLIC DYSFUNTION. 3. MILD MITRAL REGURGITATION. CKD IIIa with Proteinuria -No NSAIDs HTN with CKD/ CHF -Continue Losartan Diastolic CHF, chronic -Low sodium diet DM II with CKD -RISS Anemia in chronic illness Iron Deficiency -Monitor H&H Hospitalist note reviewed
[2023-11-27] MEDS ORDERED: DRISDOL (VITAMIN D=ERGOCALCIFEROL) 50000 UNIT CAP PO SCH (09:00)
== END 2023-11-22 14:27 | disposition home health service (06) | DRG 871 ==
LOC: ER 09:22 → ERHOLD 12:27 → 2ND 19:19
PROVIDERS: ADMIT Hospitalist; ATTEND Hospitalist
DX: A41.9 Sepsis, unspecified organism (principal); G93.41 Metabolic encephalopathy; J18.9 Pneumonia, unspecified organism; J96.01 Acute respiratory failure with hypoxia; C78.00 Secondary malignant neoplasm of unspecified lung; F05 Delirium due to known physiological condition; N17.9 Acute kidney failure, unspecified; N30.00 Acute cystitis without hematuria; I50.32 Chronic diastolic (congestive) heart failure; I13.0 Hypertensive heart and chronic kidney disease with heart failure and stage 1 through stage 4 chronic kidney disease, or unspecified chronic kidney disease; N18.32 Chronic kidney disease, stage 3b; E11.22 Type 2 diabetes mellitus with diabetic chronic kidney disease; E11.65 Type 2 diabetes mellitus with hyperglycemia; E11.40 Type 2 diabetes mellitus with diabetic neuropathy, unspecified; D50.9 Iron deficiency anemia, unspecified; E78.5 Hyperlipidemia, unspecified; E03.9 Hypothyroidism, unspecified; Z85.3 Personal history of malignant neoplasm of breast; Z90.49 Acquired absence of other specified parts of digestive tract; Z79.01 Long term (current) use of anticoagulants; Z90.11 Acquired absence of right breast and nipple; Z11.52 Encounter for screening for COVID-19; Z79.82 Long term (current) use of aspirin; Z79.84 Long term (current) use of oral hypoglycemic drugs; Z79.52 Long term (current) use of systemic steroids; Z86.718 Personal history of other venous thrombosis and embolism; Z90.710 Acquired absence of both cervix and uterus; Z79.890 Hormone replacement therapy; Z79.899 Other long term (current) drug therapy
CPT/HCPCS: 36415; 70450; 71045; 80048; 80053; 80202; 81003; 82947; 83036; 83605; 83735; 83880; 84100; 84439; 84443; 85025; 85610; 85730; 87040; 87804; 87811; 93005; 96361; 96365; 96375; 99285; C9113; J0360; J0696; J1644; J1815; J2543; J3475; J7030; J7050

== ENCOUNTER 2024-01-26 14:34 | Observation (INO) | payer OTHER ==
--- OUTSIDE RECORDS SUMMARY | 2024-01-26 14:38 | XMS REPORT | Clinical Summary ---
Author Name Unknown Organization [facility] [place] Address [address] [place] [address] Care Team Providers Care Interior Block Wirer Name Role Phone Sanjeev Mcgowan MD Primary Care Provider [phone] Thong Segura MD Unavailable Allergies No known [...] 60 tablet 0 3 Active HYDROcodone-acet aminophen (Kent) 5 mg-325 mg per tabletIndication s:Infiltrating duct [...] moderate pain. 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 Every morning for 21 days followed by 7 days off. Repeat every 28 days. 42 tablet 1 2 03/02/20 23 Discontinued HYDROcodone-acet aminophen (Kent) 5 mg-325 mg per tabletIndication s:Chronic pain due to malignant neoplastic disease Take 1 tablet by mouth every 4 (four) hours as needed for moderate pain. 60 tablet 0 2 07/19/20 23 Discontinued prochlorperazine (Compazine) 10 mg tabletIndication s:Infiltrating duct [...] days. 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; 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) 11/09/2023 Telephone Breast Center - Medical Oncology [address] [facility], 5th [place] [address] Cam Valera RN 10/18/2023 Orders Only Cardiopulmonary Center - Pulmonology Medicine [address] [facility], 6th [place] [address] Yancy Roberson MD Chronic cough (Primary Dx) 10/04/2023 6:15 AM EP TECH Ancillary Procedure [address] [place] [address] Yvette De La Torre, STOREROOM KEEPER Infiltrating duct carcinoma, 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; Right> 10/04/2023 Travel 09/10/[address] Imaging [address] [facility], 7th [place] [address] Micki Wilde MD 09/10/2023 Orders Only MD Nieves [address] [address] Yvette De La Torre P, STOREROOM KEEPER Infiltrating duct carcinoma, 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; 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) 07/27/2023 9:20 AM CDT Telemedicine [facility] - Breast Medical Oncology [address] [place] [address] Sanjeev Mcgowan MD Infiltrating duct carcinoma, 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; 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) 07/23/2023 Orders Only [address] [place] [address] Wil Yvette P, STOREROOM KEEPER Infiltrating duct carcinoma, 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; 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) 07/22/2023 Orders Only [facility] Breast Medical Oncology [address] [place] [address], [place] [address] Sanjeev Mcgowan MD Infiltrating duct carcinoma, 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; Right> 07/22/2023 Orders Only [address] [place] [address] Yvette De La Torre P, STOREROOM KEEPER 07/19/2023 10:30 AM CDT Infusion [facility] - Infusion [address] [place] [address], [place] [address] Yvette De La Torre P, STOREROOM KEEPER Infiltrating duct carcinoma, 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; Right> 07/19/2023 10:00 AM CDT Follow-Up [facility] Breast Medical Oncology [address] [place] [address], [place] [address] Sanjeev Mcgowan MD Infiltrating duct carcinoma, 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; 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) 07/19/2023 6:25 AM CDT Ancillary Procedure [address] [place] [address] Yvette De La Torre P, STOREROOM KEEPER Infiltrating duct carcinoma, 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; Right> 07/19/2023 Orders Only [address] [place] [address] Yvette De La Torre P, STOREROOM KEEPER 07/19/2023 Travel 07/06/2023 Orders Only MD [place] [address] [place] [address] Potter, Yvette P, STOREROOM KEEPER Infiltrating duct carcinoma, 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; Right> 07/02/2023 Orders Only MD Ezequiel [place] [address] [place] [address] Pottessa, Yvette P, STOREROOM KEEPER Infiltrating duct carcinoma, 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; Right> 06/25/2023 Orders Only MD Ezequiel [place]wan[address] [address] Yvette De La Torre P, STOREROOM KEEPER 06/20/2023 Refill [facility] - Breast Medical Oncology [address] [place] [address] Yvette De La Torre P, STOREROOM KEEPER Infiltrating duct carcinoma, 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; Right> 05/31/2023 Telephone Colorectal Center - Medical Oncology [facility], 7th [place] [address] Kate Yip MA 05/05/2023 2:00 PM CDT Follow-Up [facility] - Pulmonology Medicine [address] [place] [address], 6th [place] [address] Aakash Don, STOREROOM KEEPER Infiltrating duct carcinoma, 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; 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); Pleural effusion; Dysphonia 05/05/2023 1:30 PM CDT Ancillary Procedure Diagnostic Center [address] [facility], 2nd [place] [address] Aakash Don, STOREROOM KEEPER Pleural effusion 05/05/2023 Orders Only MD Ezequiel Kwan[address] [address] Yvette De La Torre P, STOREROOM KEEPER Infiltrating duct carcinoma, 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; 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) 05/05/2023 Travel 04/20/2023 Orders Only MD Nieves [address] [address] Yvette De La Torre APRN Infiltrating duct carcinoma, 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; 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) 04/15/2023 8:12 PM CDT - 04/16/2023 12:12 AM CDT [facility] [address] [place] [address], 1st [place] [address] Benito Hooper MD Right upper quadrant pain (Primary Dx); Infiltrating duct carcinoma, 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; Right>; Metastatic malignant neoplasm to bone; Secondary malignant neoplasm of liver and intrahepatic bile duct; Chronic lung disease Discharge Disposition: Home 04/15/2023 Travel 04/07/2023 Nurse Triage [facility] PHYSICIAN [address] [place] [address] Son Albright RN 03/02/2023 1:00 PM CDT Telemedicine MD [place]equ[place] - Breast Medical Oncology [address] [place] [address] Sanjeev Mcgowan MD Infiltrating duct carcinoma, 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; 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) 02/04/2023 12:45 PM CDT - 02/04/2023 11:59 PM CDT Hospital Encounter [facility] - Speech Pathology [address] [place], [place] [address]dg, 10th [place] [address] Aakash Don, Zaynab Childers, PhD Dysphonia Discharge Disposition: Home 02/04/2023 Travel 02/02/2023 1:30 PM CDT Follow-Up [facility] - Pulmonology Medicine [address] [place] [address] Main dg, 6th [place] [address] Aakash Don APRN Infiltrating duct carcinoma, 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] lb 1.5 oz) 10/04/2023 5:00 A M EP TECH Height - - Body Mass Index 22.83 10/29/2022 10:00 AM EP TECH Plan of Treatment Upcoming Encounters Date Type Department Care Team Description 02/11/2024 8:00 AM CDT Ancillary Procedure Diagnostic Center [address] [facility], 2nd [place] [address] Yancy Roberson MD [address] [place] [address] 02/11/2024 9:00 AM CDT Follow-Up [facility]iopulmonary Center - Pulmonology Medicine [address] [place] [address], 6th [place] [address] Yancy Roberson MD [facility] [place] [address] Aakash Don Y, STOREROOM KEEPER [address] [place] [address] 03/14/2024 10:20 AM CDT Telemedicine MD Nieves [place] - Breast Medical Oncology [address] [place] [address] Sanjeev Mcgowan MD [facility] [place] [address] Health Maintenance Due Date Last Done Comments COVID-19 Vaccine (#1) 1950 Influenza Vaccine 07/02/2023 Procedures Procedure Name Priority Date/Time Associated Diagnosis Comments MRI BRAIN W WO CONTRAST Routine 12/04/20 23 7:51 AM EP TECH Infiltrating duct carcinoma, NOS of overlapping lesion [...] METABOLIC PANEL Routine 04/15/2023 6:07 PM CDT PROFESSIONAL WRESTLER VIDEOSTROBOSCOPY Routine 02/04/2023 1:29 PM CDT Dysphonia [...] of overlapping lesion of breast <Female; Right> after 01/26/2023 Results * MRI Brain with and without Contrast (10/04/2023 7:51 AM EP TECH) Anatomical Region Laterality Modality Head Magnetic Resonan ce 10/04/2023 9:21 AM EP TECH Impressions 10/04/2023 9:24 AM EP TECH 1. No evidence of an acute infarct. 2. No evidence of enhancing intracranial metastases. Narrative 10/04/2023 9:24 AM EP TECH FULL RESULT: Examination: MRI BRAIN W WO [...] intracranial metastases. Yvette De La Torre APRN [facility] MRI ORDERABLES * CT Chest Abdomen Pelvis [...] of3 resultswithin the time period is included. Pathologist [facility] Creatinine 1.20(H) 0.51 - 0.95 mg/dL [place] Comment:Testing performed at [facility], [address] [place] [address] Blood 07/19/2023 6:28 AM CDT 07/19/2023 6:28 AM CDT Yvette De La Torre APRN LAB BLOOD ORDERABLES Performing Organization Address [facility]/State/[facility] Co de Phone Number [address], [facility] [address] [place] [address] * (ABNORMAL) .CBC (07/19/2023 6:28 AM CDT) Only the most recent of2 resultswithin the time period is included. Pathologist [facility] WBC 7.9 4.1 - 10.5 K/uL [place] Comment:All components of th e CBC performed at [facility], [address] [place] [address] RBC 3.09(L) 3.99 - 5.46 M/uL [place] Comment:All components of th e CBC performed at [facility], [address] [place] [address] Hgb 9.9(L) 12.2 - 15.3 gm/dL [place] Comment:As part of CBC or as an individual orderable testing performed at [facility], [address] [place], [place] [id number] Hct 30.7(L) 36.4 - 46.8 % [place] Comment:As part of CBC testi ng performed at [facility], [address] [place] [address] MCV 99 82 - 99 fL [place] Comment:As part of CBC testi ng performed at [facility], [address] [place] [address], [place] [address] MCH 32.0 26.6 - 33.2 pg [place] Comment:As part of CBC testi ng performed at [facility], [address] [place] [address], [place] [address] MCHC 32.2 31.1 - 35.2 gm/dL [place] Comment:As part of CBC testi ng performed at [facility], [address] [place] [address] RDW-SD 48.8 37.5 - 49.7 fL [place] Comment:As part of CBC testi ng performed at [facility], [address] [place] [address] RDW-CV 13.3 11.6 - 15.5 % [place] Comment:As part of CBC testi ng performed at [facility], [address] [place] [address] Platelet count 199 160 - 397 K/uL [place] Comment:As part of CBC or an individual orderable testing performed at [facility], [address] [place] [address] MPV 9.8 9.1 - 12.6 fL [place] Comment:As part of CBC testi ng performed at [facility], [address] [place] [address] Blood 07/19/2023 6:28 AM CDT 07/19/2023 6:28 AM CDT Yvette De La Torre APRN LAB BLOOD ORDERABLES [address], [facility] [address] [place] [address] * (ABNORMAL) Glomerular Filtration Rate (07/19/2023 6:28 AM CDT) Only the most recent of3 resultswithin the time period is included. eGFR 47(L) >=60 mL/min/1.7 3 sq. m [place] Comment: The eGFRcr is calculated with the [...] fulfill criteria for CKD. Testing performed at [facility], [address] [place] [address] Blood 07/19/2023 6:28 AM CDT 07/19/2023 6:28 AM CDT Yvette De La Torre APRN LAB BLOOD ORDERABLES [place] [address] [place] [address] * Fractionated Bilirubin (07/19/2023 6:28 AM CDT) Only the most recent of2 resultswithin the time period is included. [facility] Bili Total <0.3 <=1.2 mg/dL [place] Comment: Direct and indirect bilirubin will not be reported when Total bilirubin result is <0.3 mg/dL Indocyanine Green (ICG) may cause falsely elevated bilirubin results. Total and direct bilirubin must not be measured from samples containing indocyanine green. False elevation of total bilirubin can be seen in patients with IgG concentrations above 28 g/L. Testing performed at [facility], [address] [place] [address] Blood 07/19/2023 6:28 AM CDT 07/19/2023 6:28 AM CDT Yvette De La Torre APRN LAB BLOOD ORDERABLES [address], [facility] [address] [place] [address] * (ABNORMAL) Differential (07/19/2023 6:28 AM CDT) Only the most recent of2 resultswithin the time period is included. Neutrophil % 75.2(H) 43.2 - 72.7 % [place] Comment:All components of th e Differential performed at [facility], [address] [place] [address] Lymphocyte % 14.2(L) 16.8 - 46.2 % [place] Comment:As part of the Diffe rential testing performed at [facility], [address] [place] [address] Monocyte % 7.0 5.1 - 12.5 % [place] Comment:As part of the Diffe rential testing performed at [facility], [address] [place] [address] Eosinophil % 3.4 0.4 - 6.3 % [place] Comment:As part of the Diffe rential testing performed at [facility], [address] [place] [address] Basophil % 0.1(L) 0.2 - 1.4 % [place] Comment:As part of the Diffe rential testing performed at [facility], [address] [place] [address] IGRE % 0.1 0.1 - 1.5 % [place] Comment: IGRE % count includes Metamyelocytes, Myelocytes, and Promyelocytes. As part of the Differential testing performed at [facility], [address] [place] [address] Neutrophil Abs 5.93 1.95 - 7.25 K/uL [place] Comment:As part of the Diffe rential testing performed at [facility], [address] [place] [address] Lymphocyte Abs 1.12 1.01 - 3.24 K/uL [place] Comment:As part of the Diffe rential testing performed at [facility], [address] [place] [address], [place] [address] Monocyte Abs 0.55 0.24 - 0.85 K/uL [place] Comment:As part of the Diffe rential testing performed at [facility], [address] [place] [address] Eosinophil Abs 0.27 0.02 - 0.50 K/uL [place] Comment:As part of the Diffe rential testing performed at [facility], [address] [place] [address] Basophil Abs 0.01(L) 0.02 - 0.09 K/uL [place] Comment:As part of the Diffe rential testing performed at [facility], [address] [place] [address] IG Abs 0.01 0.01 - 0.12 K/uL [place] Comment:As part of the Diffe rential testing performed at [facility], [address] [place] [address] Blood 07/19/2023 6:28 AM CDT 07/19/2023 6:28 AM CDT Yvette De La Torre APRN LAB BLOOD ORDERABLES NHAN [address], [facility] [address] [place] [address] * BUN (07/19/2023 6:28 AM CDT) Only the most recent of2 resultswithin the time period is included. BUN 18 6 - 23 mg/dL [place] Comment:Testing performed at [facility], [address] [place] [address] Blood 07/19/2023 6:28 AM CDT 07/19/2023 6:28 AM CDT Yvette Preciado Wil ANGELN LAB BLOOD ORDERABLES Performing Organization Address City/[facility]/ZIP Co de Phone Number [address], [facility] [id number] [place] [address] * ALT (07/19/2023 6:28 AM CDT) Only the most recent of2 resultswithin the time period is included. ALT 13 <=33 U/L [place] Comment:Testing performed at [facility], [address] [place] [address] Blood 07/19/2023 6:28 AM CDT 07/19/2023 6:28 AM CDT Yvette Preciado Demetristessa STOREROOM KEEPER LAB BLOOD ORDERABLES Performing Organization Address City/[facility]/ZIP Co de Phone Number [address], [address] [address] * Aspartate Aminotransferase (07/19/2023 6:28 AM CDT) Only the most recent of2 resultswithin the time period is included. AST 19 <=32 U/L [place] Comment:Testing performed at [facility], [address] [place] [address] Blood 07/19/2023 6:28 AM CDT 07/19/2023 6:28 AM CDT Yvette Preciado DemetrisGonzalez LAB BLOOD ORDERABLES [address], [address] [address] * (ABNORMAL) Total Protein (07/19/2023 6:28 AM CDT) Only the most recent of2 resultswithin the time period is included. Total Protein 6.3(L) 6.4 - 8.3 g/dL [place] Comment:Testing performed at [facility], [address] [place] [address] Blood 07/19/2023 6:28 AM CDT 07/19/2023 6:28 AM CDT Yvette De La Torre APRN LAB BLOOD ORDERABLES Performing Organization Address City/State/[facility] Co de Phone Number [address], [facility] [phone] [place] [address] * Alkaline Phosphatase (07/19/2023 6:28 AM CDT) Only the most recent of2 resultswithin the time period is included. [facility] Alk Phos 60 35 - 104 U/L [place] Comment:Testing performed at [facility], [address] [place] [address] Blood 07/19/2023 6:28 AM CDT 07/19/2023 6:28 AM CDT Yvette De La Torre APRN LAB BLOOD ORDERABLES Performing Organization Address City/State/[facility] Co de Phone Number [address] [address] * (ABNORMAL) Glucose Level (07/19/2023 6:28 AM CDT) Only the most recent of2 resultswithin the time period is included. [facility] Glucose Level 187(H) 70 - 99 mg/dL [place] Comment: Effective 05/27/16, the glucose reference intervals have been updated based on [place] [employer] guidelines (Standards of Medical Care in Diabetes 2016. Diabetes Care 2016; 39: S13-S22). Fasting blood glucose: Normal: 70-99 mg/dL Impaired fasting glucose (increased risk for diabetes or pre-diabetes): 100- 125 mg/dL Diabetes mellitus: >/=126 mg/dL Random blood glucose: Normal: 70-199 mg/dL Note: Random glucose >100 mg/dL is associated with increased risk for diabetes Testing performed at [facility], [address] [place] [address] Blood 07/19/2023 6:28 AM CDT 07/19/2023 6:28 AM CDT Yvette De La Trore APRN LAB BLOOD ORDERABLES Performing Organization Address City/[facility]/ZIP Co de Phone Number [address] [address] * Calcium Level (07/19/2023 6:28 AM CDT) Only the most recent of3 resultswithin the time period is included. Calcium Lvl 8.6 8.4 - 10.2 mg/dL [place] Comment:Testing performed at [facility], [address] [place] [address] Blood 07/19/2023 6:28 AM CDT 07/19/2023 6:28 AM CDT Yvette De La Torre APRN LAB BLOOD ORDERABLES [address] [address] * (ABNORMAL) Albumin Level (07/19/2023 6:28 AM CDT) Only the most recent of2 resultswithin the time period is included. Albumin Lvl 3.3(L) 3.5 - 5.2 gm/dL [place] Comment:Testing performed at [facility], [address] [place] [address] Blood 07/19/2023 6:28 AM CDT 07/19/2023 6:28 AM CDT Yvette De La Torre APRN LAB BLOOD ORDERABLES Performing Organization Address City/[facility]/ZIP Co de Phone Number [place] [phone] [place] [address] * Electrolyte Panel (07/19/2023 6:28 AM CDT) Only the most recent of2 resultswithin the time period is included. Sodium Lvl 138 136 - 145 mEq/L [place] Comment:Testing performed at [facility], [address] [place] [address] Potassium Lvl 3.9 3.5 - 5.1 mEq/L [place] Comment:Testing performed at [facility], [address] [place] [address] Chloride 105 98 - 107 mEq/L [place] Comment:Testing performed at [facility], [address] [place] [address] CO2 23 22 - 29 mEq/L [place] Comment:Testing performed at [facility], [address] [place] [address] Anion Gap 10 4 - 14 mEq/L [place] Comment:Testing performed at [facility], [address] [place] [address] Blood 07/19/2023 6:28 AM CDT 07/19/2023 6:28 AM CDT Yvette De La Torre APRN LAB BLOOD ORDERABLES Performing Organization Address [facility]/State/[facility] Co de Phone Number [place] [phone] [place] [address] * X-ray Chest 2 Views (1 month) (05/05/2023 1:20 PM CDT) Only the most recent of2 [...] with the final report. Benito Hooper MD [facility] CT ORDERABLES * X-ray Chest 1 View [...] Clean Dev Yes POC TELCOR Performing Lab [facility] POC TELCOR Comment:[facility], [address] [place] [address]; Mill Helper: Sara Velazquez MD; Waived Point of Care Testing - Radha Greenwood MD Blood 04/15/2023 8:40 PM CDT 04/15/2023 8:40 PM CDT Benito Hooper MD POCT ORDERABLES - DE VICE Performing Organization Address [facility] Co de Phone Number POC TELCOR Unless otherwise noted, all lab tests performed by: Division of Pathology and Laboratory Medicine [address] [place] [address] * Clot Expiration Date (04/15/2023 6:07 PM CDT) [facility] T & S Expiration 04/18/2023 [facility] Blood 04/15/2023 6:07 PM CDT 04/15/2023 7:43 PM CDT Shameka Carson MD BLOOD BANK TEST ORD ERABLES [facility] Unless otherwise noted, all lab tests performed by: Division of Pathology and Laboratory Medicine [address] [place] [address] * TMP Interpretation Antibody Screen Negative (04/15/2023 6:07 PM CDT) [facility] TMP Auto Neg ABSC Interp At the present time, patient plasma shows no evidence of RBC alloantibodi es. [facility] Comment: MD Sofya MARIA [id number] Dictated by: MD Sofya MARIA [id number] Dictated Date/Time: 04.16.2023 8:30 AM CDT Transcribed Date/Time: 04.16.2023 8:30 AM CDT Electronically Signed By: MD Sofya MARIA [id number] on 04.16.2023 8:30 AM C Blood 04/15/2023 6:07 PM CDT 04/15/2023 7:43 PM CDT Shameka Carson MD BLOOD BANK TEST ORD ERABLES Performing Organization Address City/[facility]/ZIP Co de Phone Number [facility] Unless otherwise noted, all lab tests performed by: Division of Pathology and Laboratory Medicine [address] [place] [address] * aPTT (04/15/2023 6:07 PM CDT) Pathologist [facility] aPTT 29.0 24.1 - 35.5 second(s) [facility] Blood 04/15/2023 6:07 PM CDT 04/15/2023 6:20 PM CDT Shameka Carson MD LAB BLOOD ORDERABLE S Performing Organization Address [facility] Co de Phone Number [facility] Unless otherwise noted, all lab tests performed by: Division of Pathology and Laboratory Medicine [address] [place] [id number] * ABORh (04/15/2023 6:07 PM CDT) ABORh. O POS ND MD [facility] Blood 04/15/2023 6:07 PM CDT 04/15/2023 7:43 PM CDT Shameka Carson MD BLOOD BANK TEST ORD ERABLES [facility] Unless otherwise noted, all lab tests performed by: Division of Pathology and Laboratory Medicine [address] [place] [id number] * Prothrombin Time with INR (04/15/2023 6:07 PM CDT) Pathologist [facility] PT 13.8 11.9 - 14.5 second(s) [facility] INR 1.07 0.87 - 1.12 [facility] Blood 04/15/2023 6:07 PM CDT 04/15/2023 6:20 PM CDT Shameka Carson MD LAB BLOOD ORDERABLE S [facility] Unless otherwise noted, all lab tests performed by: Division of Pathology and Laboratory Medicine [address] [place] [id number] * Antibody Screen (04/15/2023 6:07 PM CDT) Pathologist [facility] ABSC. Negative ABSC [facility] Blood 04/15/2023 6:07 PM CDT 04/15/2023 7:43 PM CDT Shameka Carson MD BLOOD BANK TEST ORD ERABLES [facility] Unless otherwise noted, all lab tests performed by: Division of Pathology and Laboratory Medicine [address] [place] [id number] * Phosphorus Level (04/15/2023 6:07 PM CDT) Pathologist [facility] Phosphorus 4.4 2.5 - 4.5 mg/dL [facility] Blood 04/15/2023 6:07 PM CDT 04/15/2023 6:33 PM CDT Shameka Carson MD LAB BLOOD ORDERABLE S [facility] Unless otherwise noted, all lab tests performed by: Division of Pathology and Laboratory Medicine [address] [place] [address] [id number] * (ABNORMAL) Magnesium Level (04/15/2023 6:07 PM CDT) Magnesium 2.8(H) 1.6 - 2.6 mg/dL [facility] Blood 04/15/2023 6:07 PM CDT 04/15/2023 6:33 PM CDT Shameka Carson MD LAB BLOOD ORDERABLE S Performing Organization Address City/[facility] de Phone Number [facility] Unless otherwise noted, all lab tests performed by: Division of Pathology and Laboratory Medicine [address] [place] [id number] * LDH (04/15/2023 6:07 PM CDT) LDH 171 135 - 214 U/L [facility] Comment:Results greater than 1651 U/L may not be reliable due to matrix effect with extended dilution as it exceeds the semiconductor processing technician's recommended limit. Caution should be exercised when interpreting such values and done in conjunction with clinical context. Blood 04/15/2023 6:07 PM CDT 04/15/2023 6:33 PM CDT Shameka Carson MD LAB BLOOD ORDERABLE S Performing Organization Address [facility] de Phone Number [facility] Unless otherwise noted, all lab tests performed by: Division of Pathology and Laboratory Medicine [address] [place] [id number] * PROFESSIONAL WRESTLER Videostroboscopy (02/04/2023 1:29 PM CDT) Narrative [facility] - 02/04/2023 1:29 PM CDT Zaynab Jamison, PhD 05/05/2023 6:15 PM PROFESSIONAL WRESTLER Videostroboscopy Date/Time: 02/04/2023 1:29 PM Provider Information: Performed by: Zaynab Jamison, PhD Authorized by: Aakash oDn NP Indication: Indications for procedure: abnormal symptom Abnormal symptom: dysphonia, dysphagia Anesthesia: Local anesthesia used?: local anesthesia used Anesthesia: topical application Local anesthetic: lidocaine spray Sedation: Patient sedated?: patient not sedated Specimen(s) Removed: Specimen(s) removed: no specimen collected Estimated Blood Loss: Estimated blood loss: none Complications: Complications: none Patient Disposition: Patient disposition: discharge to home 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 ORDERABLES [facility] after 01/26/2023 Advance Directives Documents on File Type Date Recorded 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 Advance Directives: Medical Power of Interactive Media Marketing Strategist 11/09/2022 Medical Power of Att orney Advance Directives: Medical Power of Interactive Media Marketing Strategist 11/04/2022 Medical Power of Att orney Latest Code Status on File Code Status Date Activated Date Inactivated Comments DNR 10/29/2022 6:41 PM 11/08/2022 8:07 PM Question Answer Comments DNR obtained from: Legal Guardian or MPOA Code Status History Code Status Date Activated Date Inactivated Comments Full Code 10/27/2022 9:19 AM 10/29/2022 6:41 PM Care Teams Interior Block Wirer Relationship Specialty Start Date End Date Sanjeev Mcgowan MD [address] [place] [id number] PCP - General Breast Medical Oncology 08/28/22 Thong Segura MD [address] [place] [id number] Consulting Physician Head and Neck Surgery 01/21/23
--- NOTE | 2024-01-26 16:59 | RAD REPORT ---
EXAM DESCRIPTION: [facility] Single View01/26/2024 3:44 pm CLINICAL HISTORY: Breast cancer/hypotension COMPARISON: November 2023 FINDINGS: Bilateral pulmonary opacities have almost completely resolved since the prior exam. Heart is normal size
[2024-01-26] MEDS ORDERED: NA CHLORIDE 0.9% 1,000 ML ONE (17:11)
[2024-01-26 17:22] LABS: Absolute Basophils 0.1 K/uL (0-0.5); Absolute Eosinophils 0.2 K/uL (0-0.5); Absolute Monocytes 0.5 K/uL (0.1-1.3); Absolute Neutrophil 4.6 K/uL (1.8-8.0); Basophils % 0.9 % (0-1.3); Eosinophils % 3.2 % (0-4.4); Hematocrit 28.9 % (36.0-45.0); Hemoglobin 9.9 g/dL (12.0-15.0); Lymphocytes % 16.2 % (15.3-44.8); MCHC 34.4 g/dL (32.0-36.0); MPV 8.7 fL (7.6-11.3); Monocytes % 7.6 % (3.3-12.3); Neutrophils % 72.1 % (41.7-73.7); Nucleated Red Blood Cells % 0.1 % (0-0); Platelets 238 thou/uL (152-406); RBC Red Blood Cell Count 3.01 M/uL (3.86-4.86); Red Cell Distribution Width 14.7 % (12.1-15.2)
[2024-01-26 17:25] LABS: PTT, Activated Partial Thromb 36.9 SECONDS (24.3-36.9); Protime INR 1.19
[2024-01-26 17:37] LABS: Albumin 3.1 g/dL (3.4-5.0); Albumin/Globulin Ratio 0.7 (1.1-1.8); Anion Gap 10.4 mEq/L (5.0-15.0); Bilirubin Total 0.4 mg/dL (0.2-1.0); Globulin 4.6 g/dL (2.3-3.5); Potassium 4.4 mEq/L (3.5-5.1); Protein, Total 7.7 g/dL (6.4-8.2); Troponin High Sensitivity 6.2 pg/mL (<58.9)
[2024-01-26 18:11] LABS: Specific Gravity 1.011 (1.005-1.030); Sqamous Epithelial <5 /HPF (None Seen); Urine Bacteria <20 /HPF (<20); Urine Bilirubin NEGATIVE (Negative); Urine Blood Negative (Negative); Urine Clarity Extremely Turbid (Clear); Urine Color Light-Yellow (Yellow); Urine Culture Reflex Order REFLEXED; Urine Glucose NEGATIVE (Negative); Urine Ketones NEGATIVE (Negative); Urine Microscopic Reflex YN ORDER UMIC; Urine Mucus Slight /HPF (None Seen); Urine Nitrite NEGATIVE (Negative); Urine Protein NEGATIVE (Negative); Urine Urobilinogen Normal (Normal); Urine WBC >50 /HPF (<5); Urine WBC Clump Few /HPF (None Seen)
--- NOTE | 2024-01-26 18:37 | ER ---
Nurse's Notes [facility] Name: Neris Nevarez Age: 78 yrs Sex: Female : 1945 Arrival Date: 01/26/2024 Time: 14:34 Bed 7 Private MD: Diagnosis: Chronic kidney disease, stage 4 (severe);Hypotension, unspecified-RESOLVED;UTI/ Urinary tract infection, site not specified;Dehydration Presentation: 01/25 14:53 Chief complaint: EMS states: Generalized weakness since this morning. Home BP 86/41. On hb daily oral chemo for breast cancer. Coronavirus screen: At this time, the client does not indicate any symptoms associated with coronavirus-19. Ebola Screen: No symptoms or risks identified at this time. Initial Sepsis Screen: Does the patient meet any 2 criteria? No. Patient's initial sepsis screen is negative. Does the patient have a suspected source of infection? No. Patient's initial sepsis screen is negative. Risk Assessment: Do you want to hurt yourself or someone else? Patient reports no desire to harm self or others. Onset of symptoms was January 26, 2024. 14:53 Method Of Arrival: Wheelchair hb 14:53 Acuity: YOLIE 3 hb Triage Assessment: 14:55 General: Appears in no apparent distress. Behavior is calm, cooperative. Pain: Pain hb currently is 4 out of 10 on a pain scale. Neuro: Level of Consciousness is awake, alert, obeys commands, Oriented to person, place, time, situation. Cardiovascular: Patient's skin is warm and dry. Respiratory: Respiratory effort is even, unlabored, Respiratory pattern is regular, symmetrical. Musculoskeletal: Reports chronic back pain. Historical: - Allergies: 14:54 No Known Allergies; hb - PMHx: 14:54 Cancer; breast; pleural effusion; Pneumonia; Hypothyroidism; Hypertensive disorder; hb DVT; Diabetes - NIDDM; Cancer; breast; - PSHx: 14:54 section; GALLBLADDER; mastectomy; right; hb - Immunization history:: Adult Immunizations up to date. - Social history:: Smoking status: Patient denies any tobacco usage or history of. - Family history:: not pertinent. - Hospitalizations: : No recent hospitalization is reported. Screenin:01 [facility] ED Fall Risk Assessment (Adult) History of falling in the last 3 months, rs5 including since admission No falls in past 3 months (0 pts) Confusion or Disorientation No (0 pts) Intoxicated or Sedated No (0 pts) Impaired Gait No (0 pts) Mobility Assist Device Used No (0 pt) Altered Elimination No (0 pt) Score/Fall Risk Level 0 - 2 = Low Risk Oriented to surroundings, Maintained a safe environment. Abuse screen: Denies threats or abuse. Nutritional screening: No deficits noted. Tuberculosis screening: No symptoms or risk factors identified. Assessment: 14:57 General: Appears in no apparent distress. comfortable, Behavior is calm, cooperative. rs5 14:57 Pain: Denies pain. Neuro: Level of Consciousness is awake, alert, obeys commands, rs5 Oriented to person, place, time, situation. Cardiovascular: Patient's skin is warm and dry. Rhythm is regular. Respiratory: Airway is patent Respiratory effort is even, unlabored, Respiratory pattern is regular, symmetrical. GI: Abdomen is round non-distended, Abd is soft and non tender X 4 quads. : No signs and/or symptoms were reported regarding the genitourinary system. EENT: No signs and/or symptoms were reported regarding the EENT system. Derm: Skin is intact, Skin is dry, Skin is normal, Skin temperature is warm. Musculoskeletal: Range of motion: intact in all extremities. 16:05 Reassessment: No changes from previously documented assessment. rs5 18:15 Reassessment: Patient and/or family updated on plan of care and expected duration. Pain rs5 level reassessed. Patient is alert, oriented x 3, equal unlabored respirations, skin warm/dry/pink. 19:40 Reassessment: Patient appears in no apparent distress at this time. Patient and/or jb4 family updated on plan of care and expected duration. Pain level reassessed. Patient is alert, oriented x 3, equal unlabored respirations, skin warm/dry/pink. 20:43 Reassessment: discharged from [facility]. tm6 Vital Signs: 14:53 BP 105 / 65; Pulse 62; Resp 16; Temp 98(TE); Pulse Ox 99% on R/A; Weight 52.16 kg; hb Height 4 ft. 10 in. ; Pain 4/10; 18:33 BP 107 / 67; Pulse 66; Resp 18; Pulse Ox 99% on R/A; rs5 19:20 BP 174 / 62 LA Supine (auto/reg); Pulse 72; Resp 16; Pulse Ox 100% on R/A; jb4 19:21 BP 174 / 65 LA Sitting (auto/reg); Pulse 70; Resp 16; Pulse Ox 100% on R/A; jb4 19:23 BP 153 / 47 LA Standing (auto/reg); Pulse 71; Resp 18; Pulse Ox 100% on R/A; jb4 14:53 Body Mass Index 24.03 (52.16 kg, 147.32 cm) hb 14:53 Pain Scale: Adult hb ED Course: 14:39 Patient arrived in ED. rg4 14:39 Maciel Puentes MD is Attending Physician. rn 14:54 Triage completed. hb 14:55 Arm band placed on. hb 15:01 Patient has correct armband on for positive identification. Placed in gown. Bed in low rs5 position. Call light in reach. Side rails up X2. 15:01 No provider procedures requiring assistance completed. rs5 15:45 Chest Single View XRAY In Process Unspecified. EDMS 16:42 Nakia Brink, RN is Primary Nurse. kd3 16:55 Thermoregulation: warm blanket given to patient. hb 18:32 Angela Garcia MD is Hospitalizing Provider. willa 19:15 CT Stone Protocol In Process Unspecified. EDMS 20:43 Provided Education on: call Dr. Garcia in AM and do not take lasix tomorrow. tm6 20:43 IV discontinued, intact, bleeding controlled, No redness/swelling at site. Pressure tm6 dressing applied. Administered Medications: 15:30 Drug: NS 0.9% IV 1000 ml IV at 1000 ml once Route: IV; Rate: 1000 ml; Site: left kd3 antecubital; 15:45 Follow up: Response: No adverse reaction rs5 19:39 Drug: NS 0.9% IV 500 ml IV at bolus once Route: IV; Rate: bolus; Site: left antecubital;jb4 19:39 Drug: Rocephin IV 1 grams IV at per protocol once; Given slow IV push per pharmacy jb4 instructions Route: IV; Rate: per protocol; Site: left antecubital; Medication: 18:33 VIS not applicable for this client. rs5 Outcome: 18:36 Decision to Hospitalize by Provider. willa 20:43 Discharged to home ambulatory, with family, tm6 20:43 Condition: stable 20:43 Discharge instructions given to patient, family, Instructed on discharge instructions, follow up and referral plans. medication usage, Demonstrated understanding of instructions, follow-up care, medications, Prescriptions given X 1, 20:44 Patient left the ED. tm6 Signatures: Dispatcher [employer] EDMS Henrique Nieves MD MD cha Nieto, Roman, MD MD rn Baxter, Heather, RN RN Mini Medina rg4 Quinton Gomez RN RN jb4 Nakia Brink RN RN kd3 Jan Martinez RN RN rs5 Elaine Magaña RN RN tm6 Corrections: (The following items were deleted from the chart) 14:55 14:53 Chief complaint: EMS states: Generalized weakness since this morning. Home BP hb 86/41. hb
--- NOTE | 2024-01-26 18:37 | EDPHYS ---
Physician Documentation [facility] Name: Neris Nevarez Age: 78 yrs Sex: Female : 1945 Arrival Date: 01/26/2024 Time: 14:34 Bed 7 Private MD: ED Physician Maciel Puentes HPI: 01/25 16:22 This 78 yrs old Female presents to ER via Wheelchair with complaints of Blood rn Pressure Problem. 16:22 Patient was getting physical therapy when noted to have low blood pressure, systolic in rn the 80s. [place] dizzy and lightheaded but no syncope. Does not feel ill. No fever. No vomiting or diarrhea. Seen a few weeks ago here for dehydration and volume depletion. No changes in medication.. Onset: The symptoms/episode began/occurred today. Severity of symptoms: At their worst the symptoms were moderate in the emergency department the symptoms are unchanged. The patient has experienced similar episodes in the past. The patient has been recently seen at the [facility] Emergency Department. Historical: - Allergies: 14:54 No Known Allergies; hb - PMHx: 14:54 Cancer; breast; pleural effusion; Pneumonia; Hypothyroidism; Hypertensive disorder; hb DVT; Diabetes - NIDDM; Cancer; breast; - PSHx: 14:54 section; GALLBLADDER; mastectomy; right; hb - Immunization history:: Adult Immunizations up to date. - Social history:: Smoking status: Patient denies any tobacco usage or history of. - Family history:: not pertinent. - Hospitalizations: : No recent hospitalization is reported. ROS: 16:22 Constitutional: Negative for fever, chills, and weight loss, Eyes: Negative for injury, rn pain, redness, and discharge, Neck: Negative for injury, pain, and swelling, Cardiovascular: Negative for chest pain, palpitations, and edema, Respiratory: Negative for shortness of breath, cough, wheezing, and pleuritic chest pain, Abdomen/GI: Negative for abdominal pain, nausea, vomiting, diarrhea, and constipation, Back: Negative for injury and pain, MS/Extremity: Negative for injury and deformity, Skin: Negative for injury, rash, and discoloration, Neuro: Negative for headache, numbness, tingling, and seizure, Exam: 16:22 Constitutional: This is a well developed, well nourished patient who is awake, alert, rn and in no acute distress. Cardiovascular: Regular rate and rhythm with a normal S1 and S2. No gallops, murmurs, or rubs. Normal PMI, no JVD. No pulse deficits. Respiratory: Lungs have equal breath sounds bilaterally, clear to auscultation and percussion. No rales, rhonchi or wheezes noted. No increased work of breathing, no retractions or nasal flaring. Abdomen/GI: Soft, non-tender, with normal bowel sounds. No distension or tympany. No guarding or rebound. No evidence of tenderness throughout. MS/ Extremity: Pulses equal, no cyanosis. Neurovascular intact. Full, normal range of motion. Equal circumference. Neuro: Awake and alert, GCS 15, oriented to person, place, time, and situation. Cranial nerves II-XII grossly intact. Motor strength 4/5 in all extremities. Sensory grossly intact. Vital Signs: 14:53 BP 105 / 65; Pulse 62; Resp 16; Temp 98(TE); Pulse Ox 99% on R/A; Weight 52.16 kg; hb Height 4 ft. 10 in. ; Pain 4/10; 18:33 BP 107 / 67; Pulse 66; Resp 18; Pulse Ox 99% on R/A; rs5 19:20 BP 174 / 62 LA Supine (auto/reg); Pulse 72; Resp 16; Pulse Ox 100% on R/A; jb4 19:21 BP 174 / 65 LA Sitting (auto/reg); Pulse 70; Resp 16; Pulse Ox 100% on R/A; jb4 19:23 BP 153 / 47 LA Standing (auto/reg); Pulse 71; Resp 18; Pulse Ox 100% on R/A; jb4 14:53 Body Mass Index 24.03 (52.16 kg, 147.32 cm) hb 14:53 Pain Scale: Adult hb MDM: 14:40 Patient medically screened. rn 17:54 Transition of care: After a detail discussion of the patient's case, care is rn transferred to Henrique Nieves MD. 01/25 14:50 Order name: Blood Culture Adult (2) rn 01/25 14:50 Order name: CBC with Diff; Complete Time: 17:31 rn 01/25 14:50 Order name: CMP; Complete Time: 17:43 rn 01/25 14:50 Order name: Lactate w/ 2H reflex if indic.; Complete Time: 17:43 01/25 14:50 Order name: Protime (+inr); Complete Time: 17:26 01/25 14:50 Order name: Ptt, Activated; Complete Time: 17:26 01/25 14:50 Order name: Urinalysis w/ reflexes; Complete Time: 18:29 01/25 14:50 Order name: Troponin High Sensitivity; Complete Time: 17:43 01/25 14:50 Order name: BNP; Complete Time: 17:43 01/25 18:26 Order name: Urine Culture [facility] 01/25 19:36 Order name: CBC with Automated Diff [facility] 01/25 19:36 Order name: CBC with Automated Diff [facility] 01/25 19:36 Order name: Comprehensive Metabolic Panel [facility] 01/25 19:36 Order name: Comprehensive Metabolic Panel [facility] 01/25 19:36 Order name: Troponin High Sensitivity [facility] 01/25 19:36 Order name: Troponin High Sensitivity [facility] 01/25 19:36 Order name: Troponin High Sensitivity [facility] 01/25 19:36 Order name: Troponin High Sensitivity [facility] 01/25 14:50 Order name: Chest Single View XRAY; Complete Time: 17:03 01/25 18:30 Order name: CT Stone Protocol [facility] 01/25 14:50 Order name: EKG; Complete Time: 14:50 01/25 14:50 Order name: Accucheck; Complete Time: 17:52 01/25 14:50 Order name: Cardiac monitoring; Complete Time: 17:52 01/25 14:50 Order name: EKG - Nurse/Tech; Complete Time: 18:31 01/25 14:50 Order name: IV Saline Lock - Large Bore; Complete Time: 18:31 01/25 14:50 Order name: Labs collected and sent; Complete Time: 17:52 01/25 14:50 Order name: O2 Per Protocol; Complete Time: 17:52 01/25 14:50 Order name: O2 Sat Monitoring; Complete Time: 17:52 01/25 14:50 Order name: Vital Signs; Complete Time: 17:52 01/25 17:56 Order name: PO challenge; Complete Time: 19:39 [facility] 01/25 18:12 Order name: Orthostatics; Complete Time: 19:39 willa Administered Medications: 15:30 Drug: NS 0.9% IV 1000 ml IV at 1000 ml once Route: IV; Rate: 1000 ml; Site: left kd3 antecubital; 15:45 Follow up: Response: No adverse reaction rs5 19:39 Drug: NS 0.9% IV 500 ml IV at bolus once Route: IV; Rate: bolus; Site: left antecubital;jb4 19:39 Drug: Rocephin IV 1 grams IV at per protocol once; Given slow IV push per pharmacy jb4 instructions Route: IV; Rate: per protocol; Site: left antecubital; Disposition Summary: 01/26/24 18:36 Hospitalization Ordered Notes: Hospitalization Status: Observation willa Provider: Angela Garcia cha Location: Telemetry/MedSurg (observation) willa Condition: Stable willa Problem: new willa Symptoms: have improved willa Bed/Room Type: Standard willa Room Assignment: (01/26/24 20:08) rv1 Diagnosis - Chronic kidney disease, stage 4 (severe) willa - Hypotension, unspecified - RESOLVED willa - UTI/ Urinary tract infection, site not specified willa - Dehydration willa Forms: - Medication Reconciliation Form willa - SBAR form willa - Leadership Thank You Letter willa Signatures: Dispatcher [employer] EDHenrique Collins MD MD cha Nieto, Roman, MD MD rn Baxter, Heather, RN RN hb Bryson, James, RN RN jb4 Nakia Brink RN RN kd3 Cassie Newman rv1 Jan Martinez RN rs5 Corrections: (The following items were deleted from the chart) 19:59 18:36 willa rv1 20:08 19:59 419 rv1 rv1
--- NOTE | 2024-01-26 19:20 | P.HP ---
Certification for Inpatient Patient admitted to: Observation With expected LOS: <2 Midnights Patient will require the following post-hospital care: None Practitioner: I am a practitioner with admitting privileges, knowledge of patient current condition, hospital course, and medical plan of care. Services: Services provided to patient in accordance with Admission requirements found in Title 42 Section 412.3 of the Code of Federal Regulations Patient History Date of Service: 01/26/24 Reason for admission: Hypotension History of Present Illness: Patient is a 78-year-old female who came into the hospital with hypotension. Patient has a history of hypertension, diabetes, breast cancer status postmastectomy of the right breast who has been getting physical therapy at home. Physical therapy had come to the house and her had gone to run some errands. She had started physical therapy, but she was found to have a low blood pressure with a systolic blood pressure of about 100. She has been running much higher according to the family. However, she had no clinical complaints. She had no dysuria she had no lightheadedness, she had no pal pitations, no chest pain, but therapist notified patient's who came back home and brought her to the emergency room. In the ER patient's initial blood pressure with a systolic of 100. Repeat blood pressures have been 160s systolic. Patient is clinically doing well and she is wanting to go home. She does not want to be admitted. She was found to have a questionable UTI but she has no symptoms. She denies having dysuria or hematuria or any other clinical complaints. At this time, patient will be admitted for observation. Allergies No Known Allergies Allergy (Verified 02/24/19 23:23) Home Medications: Aspirin [Aspir-Low] 1 tab PO DAILY 02/24/19 Glimepiride 1 tab PO BID PRN 02/24/19 Levothyroxine Sodium 1 tab PO DAILY 02/24/19 Pantoprazole [Protonix Tab*] 40 mg PO DAILYAC #30 tab 02/25/19 Gabapentin 1 cap PO BEDTIME 10/16/23 Letrozole [Femara*] 1 tab PO BEDTIME 10/16/23 OLANZapine [Olanzapine] 2.5 mg PO BEDTIME 10/16/23 Orphenadrine Citrate [Orphenadrine Citrate ER] 1 tab PO BEDTIME 10/16/23 Sennosides [Senna Lax] 2 tab PO DAILY PRN 10/16/23 Tramadol HCl [Ultram] 1 tab PO DAILY PRN 10/16/23 Atorvastatin Calcium [Lipitor*] 20 mg PO BEDTIME tab 10/31/23 Furosemide [Lasix*] 20 mg PO DAILY tab 10/31/23 carvediloL [Coreg*] 12.5 mg PO BID 6AM 6PM 11/19/23 Albuterol Sulfate [Albuterol Sulfate Hfa] 8.5 gm IH Q6H PRN 14 Days #1 inh 11/22/23 Amox/Clavulanate [Augmentin 875-125 Tab] 1 each PO BID 3 Days #6 tab 11/22/23 Doxycycline Hyclate 100 mg PO BID 3 Days #6 tab 11/22/23 Hydrocodone 5/APAP 325 [[place] 5/325*] 1 tab PO Q6H PRN tab 11/22/23 Lactobacillus Acidophilus [Acidophilus Lactobacilli] 1 each PO BID 7 Days #14 tab 11/22/23 Mag Hydroxide 8% [Milk Of Magnesia*] 30 ml PO DAILYPRN PRN 11/22/23 Melatonin 5 mg PO BEDTIME 11/22/23 OLANZapine [Zyprexa*] 2.5 mg PO BEDTIME tab 11/22/23 Pharmacy Consult 1 ea XX DAILYPRN PRN ea 11/22/23 Vitamin D [Drisdol*] 50,000 unit PO Q7D@0900 cap 11/22/23 Cefdinir [Cefdinir*] 300 mg PO BID #7 cap 01/26/24 - Past Medical/Surgical History Diabetic: Yes -: NEUROPATHY -: HTN -: HYPERLIPEDEMIA -: DM TYPE II -: HYPOTHROIDISM -: KIDNEY STONES -: BREAST CANCER -: BLOOD CLOTS-both legs -: double pne x2 -: Right MASTECTOMY -: JASMINA -: X3 -: cataract s/x Psychosocial/ Personal History: Lives at home with her - Family History Mother Medical History: Heart disease, Diabetes Father Medical History: Hypertension Notes: colon cancer - Social History Smoking Status: Former smoker Alcohol use: Yes CD- Drugs: No Caffeine use: Yes Review of Systems 10-point ROS is otherwise unremarkable Physical Examination - Vital Signs Temperature: 98 F Blood Pressure: 166/80 Pulse: 77 Respirations: 18 Pulse Ox (%): 96 - Physical Exam General: Alert, In no apparent distress, Oriented x3 HEENT: Atraumatic, PERRLA, Mucous membr. moist/pink, EOMI, Sclerae nonicteric Neck: Supple, 2+ carotid pulse no bruit, No LAD, Without JVD or thyroid abnormality Respiratory: Clear to auscultation bilaterally, Normal air movement Cardiovascular: Regular rate/rhythm, Normal S1 S2, Systolic murmur Gastrointestinal: Normal bowel sounds, Soft and benign, Non-distended, No tenderness Musculoskeletal: No clubbing, No swelling, No tenderness Integumentary: No rashes Neurological: Normal gait, Normal speech, Normal strength at 5/5 x4 extr, Normal tone, Normal affect Lymphatics: No axilla or inguinal lymphadenopathy - Studies Laboratory Data (last 24 hrs) 01/26/24 01/26/24 01/26/24 17:00 17:00 17:00 WBC 6.40 Hgb 9.9 L Hct 28.9 L Plt Count 238 PT 13.0 H INR 1.19 APTT 36.9 Sodium 141 Potassium 4.4 BUN 50 H Creatinine 2.12 H Glucose 215 H Total Bilirubin 0.4 AST 20 ALT 14 Alkaline Phosphatase 69 Assessment & Plan - Problems (Diagnosis) (1) Transient hypotension Current Visit: Yes Status: Acute (2) Hyperlipidemia associated with type 2 diabetes mellitus Current Visit: No Status: Acute (3) CKD (chronic kidney disease) stage 3, GFR 30-59 ml/min Current Visit: No Status: Chronic Qualifiers: (4) DM type 2 causing CKD stage 3 Current Visit: No Status: Chronic Qualifiers: (5) HTN (hypertension) Onset Date: 03/30/17 Current Visit: No Status: Chronic (6) Hyperlipidemia Current Visit: No Status: Chronic Qualifiers: (7) Hypothyroidism Onset Date: 03/30/17 Current Visit: No Status: Chronic Qualifiers: - Plan Plan: 1. Patient with transient hypotension; she she had just taken her blood pressure medicines when she had her blood pressure checked by the therapist. However, she was completely asymptomatic. Currently her blood pressure is 160/50. Her labs are completely unremarkable. I do not think she needs to be admitted to the hospital as she was not having any symptoms whatsoever. She should continue taking her blood pressure medicines as scheduled and we can adjust them with her primary care provider. I will asked him to take half the doses in the morning and to repeat her blood pressure tomorrow. I anticipate her going home in a.m. 2. Patient with positive urine analysis with white blood cells and bacteria; however, patient completely asymptomatic. She does not really warrant antibiotic therapy. She is being given IV antibiotics in the ER. She does not have any fever and no leukocytosis. Will continue to monitor her overnight and if she does well then discharge in a.m. 3. History of hypertension diabetes; strict blood pressure and blood sugar control 4. GI and DVT prophylaxis Discharge Plan: Home Plan to discharge in: 24 Hours - Advance Directives Does patient have a Living Will: No Does patient have a Durable POA for Healthcare: Yes - Code Status/Comfort Care Code Status Assessed: Yes Code Status: Full Code Critical Care: No Time Spent Managing PTS Care (In Minutes): 45
[2024-01-26] MEDS ORDERED: CEFTRIAXONE 1000 MG/VIAL ONE (19:22)
[2024-01-26] MEDS ORDERED: NA CHLORIDE 0.9% 500 ML ONE (19:23)
[2024-01-26 19:25] VITALS: TEMP 98
[2024-01-26] MEDS ORDERED: ONDANSETRON 4 MG/2 ML VIAL IV PRN (19:32)
[2024-01-26] MEDS ORDERED: ACETAMINOPHEN 500 MG TAB PO PRN (19:32)
--- NOTE | 2024-01-26 19:50 | RAD REPORT ---
EXAM DESCRIPTION: CT - Stone Protocol - 01/26/2024 7:13 pm CLINICAL HISTORY: Abdominal pain. COMPARISON: 2022 CT chest and 2020 CT abdomen TECHNIQUE: Computed axial tomography of the abdomen pelvis was obtained without oral or IV contrast. Lack of IV and oral contrast limits evaluation of solid organs, appendix, bowel, and vessels. Chatman l reformatted images were obtained and reviewed. All CT scans are performed using dose optimization technique as appropriate and may include automated exposure control or mA/KV adjustment according to patient size. FINDINGS: Small loculated left pleural effusion. Multiple hepatic low to intermediate density lesions have enlarged from 2022. Largest posterior segme nt right lobe 2.9 centimeters Cholecystectomy A renal calculus is not seen. An ureteral calculus is not noted. A bladder calculus i s not present. The spleen, pancreas, adrenals and kidneys grossly normal Normal appendix. No adnexal mass. No evidence of diverticulitis There is no evidence of diverticulitis. The appendix appears normal Marked compression fracture T12 vertebral body unchanged from 2022. Retropulsion of bone into the spi nal canal results in moderate central spinal stenosis. IMPRESSION: Enlargement of hepatic lesions likely metastases
[2024-01-26] MEDS ORDERED: NA CHLORIDE 0.9% 1,000 ML IV SCH (20:00)
--- NOTE | 2024-01-26 20:09 | P.DS ---
Discharge Date: 01/26/24 Disposition: ROUTINE DISCHARGE Discharge Condition: GOOD Reason for Admission: Hypotension - Problems (1) Transient hypotension Status: Acute (2) Hyperlipidemia associated with type 2 diabetes mellitus Status: Acute (3) CKD (chronic kidney disease) stage 3, GFR 30-59 ml/min Status: Chronic Qualifiers: (4) DM type 2 causing CKD stage 3 Status: Chronic Qualifiers: (5) HTN (hypertension) Onset Date: 03/30/17 Status: Chronic (6) Hyperlipidemia Status: Chronic Qualifiers: (7) Hypothyroidism Onset Date: 03/30/17 Status: Chronic Qualifiers: Brief History of Present Illness: Patient is a 78-year-old female who came into the hospital with hypotension. Patient has a history of hypertension, diabetes, breast cancer status postmastectomy of the right breast who has been getting physical therapy at home. Physical therapy had come to the house and her had gone to run some errands. She had started physical therapy, but she was found to have a low blood pressure with a systolic blood pressure of about 100. She has been running much higher according to the family. However, she had no clinical complaints. She had no dysuria she had no lightheadedness, she had no palpitations, no chest pain, but therapist notified patient's who came back home and brought her to the emergency room. In the ER patient's initial blood pressure with a systolic of 100. Repeat blood pressures have been 160s systolic. Patient is clinically doing well and she is wanting to go home. She does not want to be admitted. She was found to have a questionable UTI but she has no symptoms. She denies having dysuria or hematuria or any other clinical complaints. At this time, patient will be admitted for observation. Hospital Course: Patient was given IV fluids. After the fluid boluses patient should be stable for discharge. We decreased patient's dose of losartan to 25 mg in the morning and 50 at night. Patient is also supposedly on diuretics. I spoke to the granddaughter regarding home medications and furosemide was not mentioned. However, it is on all medication list and she does appear to be slightly dehydrated. If she is on a diuretic this needs to be held for the next 24 to 48 hours and then resume at half the dosage. She needs to follow-up with her PCP. Patient's urine analysis did show some white blood cells and bacteria but she had no dysuria. She has no fever no leukocytosis. Granddaughter was asking about antibiotics so I will give her a couple of days of antibiotic therapy at home. At this time, she is clinically doing well and her blood pressure is stab le. She is not orthostatic. She is anxious to go home and I will go ahead and discharge her with outpatient follow-up with her PCP. Vital Signs/Physical Exam: Temp Pulse Resp BP Pulse Ox 98 F 77 18 166/80 H 96 01/26/24 20:06 01/26/24 20:06 01/26/24 20:06 01/26/24 20:06 01/26/24 20:06 General: Alert, In no apparent distress, Oriented x3 Laboratory Data at Discharge: WBC 6.40 thou/uL (4.3-10.9) 01/26/24 17:00 Hgb 9.9 g/dL (12.0-15.0) L 01/26/24 17:00 Hct 28.9 % (36.0-45.0) L 01/26/24 17:00 Plt Count 238 thou/uL (152-406) 01/26/24 17:00 PT 13.0 SECONDS (9.5-12.5) H 01/26/24 17:00 INR 1.19 01/26/24 17:00 APTT 36.9 SECONDS (24.3-36.9) 01/26/24 17:00 Sodium 141 mEq/L (136-145) 01/26/24 17:00 Potassium 4.4 mEq/L (3.5-5.1) 01/26/24 17:00 BUN 50 mg/dL (7-18) H 01/26/24 17:00 Creatinine 2.12 mg/dL (0.55-1.02) H 01/26/24 17:00 Glucose 215 mg/dL (74-106) H 01/26/24 17:00 Total Bilirubin 0.4 mg/dL (0.2-1.0) 01/26/24 17:00 AST 20 U/L (15-37) 01/26/24 17:00 ALT 14 U/L (13-56) 01/26/24 17:00 Alkaline Phosphatase 69 U/L (45-117) 01/26/24 17:00 Home Medications: Aspirin [Aspir-Low] 1 tab PO DAILY 02/24/19 Glimepiride 1 tab PO BID PRN 02/24/19 Levothyroxine Sodium 1 tab PO DAILY 02/24/19 Pantoprazole [Protonix Tab*] 40 mg PO DAILYAC #30 tab 02/25/19 Gabapentin 1 cap PO BEDTIME 10/16/23 Letrozole [Femara*] 1 tab PO BEDTIME 10/16/23 OLANZapine [Olanzapine] 2.5 mg PO BEDTIME 10/16/23 Orphenadrine Citrate [Orphenadrine Citrate ER] 1 tab PO BEDTIME 10/16/23 Sennosides [Senna Lax] 2 tab PO DAILY PRN 10/16/23 Tramadol HCl [Ultram] 1 tab PO DAILY PRN 10/16/23 Atorvastatin Calcium [Lipitor*] 20 mg PO BEDTIME tab 10/31/23 Furosemide [Lasix*] 20 mg PO DAILY tab 10/31/23 carvediloL [Coreg*] 12.5 mg PO BID 6AM 6PM 11/19/23 Albuterol Sulfate [Albuterol Sulfate Hfa] 8.5 gm IH Q6H PRN 14 Days #1 inh 11/22/23 Amox/Clavulanate [Augmentin 875-125 Tab] 1 each PO BID 3 Days #6 tab 11/22/23 Doxycycline Hyclate 100 mg PO BID 3 Days #6 tab 11/22/23 Hydrocodone 5/APAP 325 [[place] 5/325*] 1 tab PO Q6H PRN tab 11/22/23 Lactobacillus Acidophilus [Acidophilus Lactobacilli] 1 each PO BID 7 Days #14 tab 11/22/23 Mag Hydroxide 8% [Milk Of Magnesia*] 30 ml PO DAILYPRN PRN 11/22/23 Melatonin 5 mg PO BEDTIME 11/22/23 OLANZapine [Zyprexa*] 2.5 mg PO BEDTIME tab 11/22/23 Pharmacy Consult 1 ea XX DAILYPRN PRN ea 11/22/23 Vitamin D [Drisdol*] 50,000 unit PO Q7D@0900 cap 11/22/23 Cefdinir [Cefdinir*] 300 mg PO BID #7 cap 01/26/24 New Medications: Cefdinir [Cefdinir*] 300 mg PO BID #7 cap Physician Discharge Instructions: -DC IV and DC home -Follow-up with PCP in 1 to 2 weeks -Follow-up with Cardiology in 1 to 2 weeks -Please call Dr. Garcia at [phone] if any questions regarding hospital stay -Please call nursing station at [phone] if any nursing or medication questions -Return to the emergency room if symptoms worsen -Please hold lasix for 24hrs -Patient was advised to continue her home medications but decrease her losartan to 25 mg in the morning and 50 at night. They are supposed to call me in the morning regarding her blood pressure. -Patient needs to take Lasix but he needs to hold the dose for 48 hours. He can resume the dose at half the dose as well. Patient needs to discuss all this with her PCP. Diet: AHA Activity: Fall precautions Followup: Jasmyne Ochoa, [employer] [Primary Care Provider] - Time spent managing pt's care (in minutes): 35
[2024-01-26 20:21] VITALS: BMI 23.8
[2024-01-26 21:14] VITALS: BP 153/47; O2SAT 100
[2024-01-27] MEDS ORDERED: CEFTRIAXONE 1,000 MG in NA CHLORIDE 0.9% 50 ML IVPB SCH (05:00)
== END 2024-01-26 20:42 | disposition home or self-care (01) ==
LOC: ER 14:34 → ERHOLD 19:32
PROVIDERS: ADMIT Hospitalist; ATTEND Hospitalist
DX: I95.9 Hypotension, unspecified (principal); I12.9 Hypertensive chronic kidney disease with stage 1 through stage 4 chronic kidney disease, or unspecified chronic kidney disease; E78.5 Hyperlipidemia, unspecified; E11.22 Type 2 diabetes mellitus with diabetic chronic kidney disease; N18.30 Chronic kidney disease, stage 3 unspecified; E03.9 Hypothyroidism, unspecified; Z85.3 Personal history of malignant neoplasm of breast; Z79.82 Long term (current) use of aspirin; Z87.891 Personal history of nicotine dependence
CPT/HCPCS: 87040 ×2; 87088; 85025; 81001; 87086; 36415; 85610; 83605; 85730; 84484; 80053; 83880; 76377; 74176; 71045; J7040; J7030; J0696; 93005; G0378

== ENCOUNTER 2024-04-14 12:35 | Emergency (ER) | payer OTHER ==
--- OUTSIDE RECORDS SUMMARY | 2024-04-14 12:42 | XMS REPORT | Clinical Summary ---
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 Active atorvastatin (LIPITOR) 20 mg tablet Take 1 tablet (20 mg) by mouth daily. Active carvedilol (COREG) 12.5 mg tablet Take 1 tablet (12.5 mg) by mouth twice daily. Active glimepiride (AMARYL) 2 mg tablet Take 1 tablet (2 mg) by mouth twice daily. Active levothyroxine (SYNTHROID, LEVOTHROID) 25 mcg tablet Take 1 tablet (25 mcg) by mouth daily. Active meloxicam (MOBIC) 7.5 mg tablet 2 (two) times a day as needed. 2 Active diphenhydrAMINE- acetaminophen (TYLENOL PM) 25-500 mg tab Take 1 tablet by mouth nightly as needed for sleep. Active hydrocortisone (ANUSOL-HC) 2.5% rectal creamIndications :Other hemorrhoid Apply around the anus 4 (four) times a day as needed for hemorrhoids. 30 g 3 Active lidocaine (LIDODERM) 5% (700 mg/patch) transdermal patchIndications :Pain due to neoplastic disease Place 1 patch on the skin daily. Remove & Discard patch within 12 hours or as directed by MD. Remove old patch(es) before replacing new patch(es). 30 patch 3 Active Additional Information Patient not taking.Reason: No longer taking, Informant: Self, Reported on 02/11/2024 pantoprazole (Protonix) 40 mg EC tabletIndication s:Right upper quadrant pain Take 1 tablet (40 mg) by mouth every morning before breakfast. 30 tablet 1 3 Active sucralfate (Carafate) 1 g tabletIndication s:Right upper quadrant pain Take 1 tablet (1,000 mg) by mouth 4 (four) times a day. 56 tablet 3 Active hyoscyamine (Levsin/SL) 0.125 mg SL tabletIndication s:Right upper quadrant pain Place 1 tablet (0.125 mg) under the tongue every 8 (eight) hours as needed for cramping. 20 tablet 3 Active Additional Information Patient not taking.Reason: No longer taking, Informant: Self, Reported on 02/11/2024 senna-docusate (Senna Plus) 8.6 mg-50 mg tabletIndication s:Right upper quadrant pain Take 1 tablet by mouth twice daily. 60 tablet 3 Active HYDROcodone-acet aminophen (Dongola) 5 mg-325 mg per tabletIndication s:Infiltrating duct carcinoma, 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; Right> Take 1 tablet by mouth every 4 (four) hours as needed for moderate pain. 60 tablet 3 Active Additional Information Patient not taking.Reason: No longer taking, Informant: Self, Reported on 02/11/2024 morphine (MS Contin) 15 mg ER tabletIndication s:Infiltrating duct carcinoma, 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; Right> Take 1 tablet (15 mg) by mouth every 12 (twelve) hours. 60 tablet 3 Active Additional Information Patient not taking.Reason: No longer taking, Informant: Self, Reported on 02/11/2024 traMADol (ULTRAM) 50 mg tabletIndication s:Infiltrating duct carcinoma, 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; Right> Take 1 tablet (50 mg) by mouth every 8 (eight) hours as needed for moderate pain. 30 tablet 1 3 Active Additional Information Patient not taking.Reason: No longer taking, Informant: Self, Reported on 02/11/2024 letrozole (FEMARA) 2.5 mg tabletIndication s:Infiltrating duct carcinoma, 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; Right> TAKE 1 TABLET BY MOUTH DAILY 30 tablet 11 4 Active gabapentin (NEURONTIN) 300 mg capsule Take 1 capsule (300 mg) by mouth as needed. 3 Active losartan (COZAAR) 25 mg tablet Take 0.5 tablets (12.5 mg) by mouth daily. 9 Active magnesium hydroxide 400 mg/5 mL suspension 15 mL (1,200 mg) as needed (As needed). 4 Active OLANZapine (ZyPREXA) 2.5 mg tablet Take 1 tablet (2.5 mg) by mouth at bedtime. 3 Active orphenadrine (NORFLEX) 100 mg tablet Take 1 tablet (100 mg) by mouth twice daily. Active potassium chloride (MICRO-K) 10 mEq CR capsule Take 1 capsule (10 mEq) by mouth daily. 3 Active HYDROcodone-acet aminophen (Dongola) 5 mg-325 mg per tabletIndication s:Chronic pain due to malignant neoplastic disease Take 1 tablet by mouth every 4 (four) hours as needed for moderate pain. 60 tablet 2 07/19/20 23 Discontinued prochlorperazine (Compazine) 10 [...] needed for severe pain or moderate pain. 05/05/20 23 Discontinued(Reo rder) letrozole (FEMARA) 2.5 mg [...] mouth every 12 (twelve) hours. 60 tablet 3 07/22/20 23 Discontinued(Reo rder) letrozole (FEMARA) 2.5 mg tabletIndication s:Infiltrating duct carcinoma, 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; Right> Take 1 tablet (2.5 mg) by mouth daily. 30 tablet 1 4 02/09/20 24 Discontinued(Reo rder) Active Problems Problem Noted Date Diagnosed Date Altered mental status 10/31/2022 Pain due to neoplastic disease 10/29/2022 Infiltrating duct carcinoma, 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; Right> 08/28/2022 Cancer Staging:Clinical stage from 06/01/2022:Stage IV(pM1, ER+, SC-, HER2-) - Signed by Sanjeev Mcgowan MD on 09/03/2022 Last Assessment & Plan: Mrs. Nevarez is a 78 y.o. 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 She is currently on letrozole. All oncologic management will be deferred to her primary team. Hypoxia Bilateral pneumonia Last Assessment & Plan: Patient with history of recent hospitalization in 10/2023 for bilateral pneumonia presents for follow-up. She is currently working with home health PT and ambulating without supplemental O2 or assistance. She reports to respiratory concerns and overall improvement since discharge from hospital. Patient would like an order to D/C supplemental O2. PT with home health will evaluate for further O2 needs - if 6MWT is clear then we will plan for D/C of home O2 order to be sent to home health. Plan to request imaging from OSH for review. Otherwise, patient has remained stable and overall improved since discharge from hospitalization for pneumonia. No role for endbronchial or pleural intervention. If imaging from OSH shows improvement in left lower lobe opacities, patient will be placed in pending. Leukopenia Anemia in neoplastic disease Pleural effusion [...] Date Type Department Care Team Description 02/11/2024 9:00 AM CDT Follow-Up Cardiop[facility] - Pulmonology Medicine [address] [facility], 6th [place] [address] Yancy Roberson MD Conaty, Jasety Y, OBSTETRICAL TECH Infiltrating duct carcinoma, 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; 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); Chronic cough; Bilateral pneumonia 02/11/2024 8:00 AM CDT Ancillary Procedure [facility] [address] [place] [address], 2nd [place] [address] Yancy Roberson MD Chronic cough 02/11/2024 Travel 02/09/[address] [address] Yvette De La Torre, OBSTETRICAL TECH Infiltrating duct carcinoma, 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; Right> 01/20/2024 Orders Only MD Ezequiel Kwan[address] [address] Yvette De La Torre, OBSTETRICAL TECH Infiltrating duct carcinoma, 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; 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) 11/09/2023 Telephone Breast Center - Medical Oncology [facility], 5th [place] [address] Cam Valera RN 10/18/2023 Orders Only Cardiopulmonary Center - Pulmonology Medicine [address] [facility], 6th [place] [address] Yancy Roberson MD Chronic cough (Primary Dx) 10/04/2023 6:15 AM BIBLICAL LANGUAGES PROFESSOR Ancillary Procedure [address] [place] [address] Yvette De La Torre, OBSTETRICAL TECH Infiltrating duct carcinoma, 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; Right> 10/04/2023 Travel 09/10/[address] Imaging [facility], 7th [place] [address] Micki Wilde MD 09/10/2023 Orders Only MD Ezequiel Kwan[address] [place] [address] Yvette De La Torre P, OBSTETRICAL TECH Infiltrating duct carcinoma, 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; 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) 07/27/2023 9:20 AM CDT Telemedicine [place] - Breast Medical Oncology [address] [place] [address], [place] [address] Sanjeev Mcgowan MD Infiltrating duct carcinoma, 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; 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) 07/23/2023 Orders Only [address] [place] [address] Yvette De La Torre P, OBSTETRICAL TECH Infiltrating duct carcinoma, 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; 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) 07/22/2023 Orders Only MD [place] - Breast Medical Oncology [address] [place] [address], [place] [address] Sanjeev Mcgowan MD Infiltrating duct carcinoma, 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; Right> 07/22/2023 Orders Only [address] [place] [address] Yvette De La Torre P, OBSTETRICAL TECH 07/19/2023 10:30 AM CDT Infusion MD [facility] [place] - Infusion [address] [place] [address] 4[address] [place] [address] Yvette De La Torre P, OBSTETRICAL TECH Infiltrating duct carcinoma, 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; Right> 07/19/2023 10:00 AM CDT Follow-Up [facility] - Breast Medical Oncology [address] [place] [address], [place] [address] Sanjeev Mcgowan MD Infiltrating duct carcinoma, 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; 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) 07/19/2023 6:25 AM CDT Ancillary Procedure [address] [place] [address] Yvette De La Torre P, OBSTETRICAL TECH Infiltrating duct carcinoma, 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; Right> 07/19/2023 Orders Only MD [facility] [address] [facility] [place] [address] Yvette De La Torre P, OBSTETRICAL TECH 07/19/2023 Travel 07/06/2023 Orders Only [facility] [address] [place] [address], [place] [address] Potter, Yvette P, OBSTETRICAL TECH Infiltrating duct carcinoma, 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; Right> 07/02/2023 Orders Only [facility] [address] [place] [address], [place] [address] Potter, Yvette P, OBSTETRICAL TECH Infiltrating duct carcinoma, 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; Right> 06/25/2023 Orders Only [address] [place] [address] Pottessa, Yvette P, OBSTETRICAL TECH 06/20/2023 Refill [facility] - Breast Medical Oncology [address] [place] [address] Pottessa, Yvette P, OBSTETRICAL TECH Infiltrating duct carcinoma, 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; Right> 05/31/2023 Telephone Colorectal Center - Medical Oncology [facility], 7th [place] [address] Kate Yip MA 05/05/2023 2:00 PM CDT Follow-Up [facility]iopulmonary Center - Pulmonology Medicine [address] [place] [address], 6th [place] [address] Aakash Don Y, OBSTETRICAL TECH Infiltrating duct carcinoma, 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; 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); Pleural effusion; Dysphonia 05/05/2023 1:30 PM CDT Ancillary Procedure Diagnostic Center [facility], 2nd Floor [facility] [place] [address] Aakash Don Y, OBSTETRICAL TECH Pleural effusion 05/05/2023 Orders Only [address] [place] [address] Yvette De La Torre P, OBSTETRICAL TECH Infiltrating duct carcinoma, 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; 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) 05/05/2023 Travel 04/20/2023 Orders Only [facility] [address] [place] [address] Yvette De La Torre P, OBSTETRICAL TECH Infiltrating duct carcinoma, 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; 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) 04/15/2023 8:12 PM CDT - 04/16/2023 12:12 AM CDT [facility] [address] [facility] [address]ldg, 1st [place] [address] Benito Hooper MD Right upper quadrant pain (Primary Dx); Infiltrating duct carcinoma, 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; Right>; Metastatic malignant neoplasm to bone; Secondary malignant neoplasm of liver and intrahepatic bile duct; Chronic lung disease Discharge Disposition: Home 04/15/2023 Travel after 04/15/2023 Surgical History Surgery Date Site/Laterality Comments MASTECTOMY [...] Outcome GA Total Labor Labor/2nd/3rd Weight Sex Type Anes PTL Evelin A1 A5 Name Clin Comments Menarche: 15 LMP: year 1999 Last PAP: 2 years wnl Periods: Regular Parity: G3 one baby passed at 4 mo from spinal bif HRT: none OCP: 1 year Menopause:Natural stopped her cycle with chemo breast ca around 1999 Fertility Tx: none Breastfeed: none Last Filed Vital Signs Vital Sign Reading Time Taken Comments Blood Pressure 138/76 02/11/2024 8:31 AM CDT Pulse 66 02/11/2024 8:31 AM CDT Temperature 36.9 C (98.4 F) 02/11/2024 8:31 AM CD T Respiratory Rate 16 02/11/2024 8:31 AM CDT Oxygen Saturation 98% 02/11/2024 8:31 AM CDT Inhaled Oxygen Concentration - - Weight 52.1 kg (114 lb 13.8 oz) 02/11/2024 8:31 AM CDT Height - - Body Mass Index 23.19 10/29/2022 10:00 AM BIBLICAL LANGUAGES PROFESSOR Plan of Treatment Health Maintenance Due Date Last Done Comments COVID-19 Vaccine (#1) 1950 Influenza Vaccine 07/02/2024 10/30/2023 Procedures Procedure Name Priority Date/Time Associated Diagnosis Comments XR CHEST 2 VW Routine 02/11/2024 8:28 AM CDT Chronic cough MRI BRAIN W WO CONTRAST Routine 10/04/20 7:51 AM BIBLICAL LANGUAGES PROFESSOR Infiltrating duct carcinoma, NOS of overlapping lesion [...] of breast <Female; Right> ALANINE AMINOTRANSFERASE Routine 09/18/2 023 6:28 AM CDT Infiltrating duct carcinoma, [...] METABOLIC PANEL Routine 04/15/2023 6:07 PM CDT after 04/15/2023 Results * X-ray Chest 2 Views (02/11/2024 8:28 AM CDT) Only the most recent of2 resultswithin the time period is included. Anatomical Region Laterality Modality Chest Digital Radiogra phy 02/11/2024 8:57 AM CDT Impressions 02/11/2024 9:17 AM CDT 1. Small left pleural effusion with probably increased associated atelectasis or pneumonia in the left lower lung. 2. T12 compression fracture presumably due to underlying metastatic disease unchanged. ACTIONABLE ITEMS/RECOMMENDATIONS*: None. *An Actionable Finding is a finding that may be unrelated to the original reason for imaging but potentially actionable, meaning further investigation may be necessary. The Actionable Findings Vigilance Unit (AFVU) assists medical providers with responding to additional radiologic findings that are unexpected and potentially actionable. Narrative 02/11/2024 9:17 AM CDT FULL RESULT: Examination: XR CHEST 2 VW on 02/11/2024 8:28 AM. Clinical History: Breast cancer Indication: Chronic cough Comparison: 05/05/2023 Technique: Posteroanterior, lateral and dual-energy radiographs of the chest Findings: Support Apparatus: None. Lungs/Pleura/Mediastinum: Slight blunting of the left costophrenic sulcus is seen again. There is a little more haziness in the left lower lung. Presumed radiation treatment effects at the right lung apex are stable. No other focal consolidation. Heart size is normal. Aortic atherosclerosis. Other: Cholecystectomy clips. Marked T12 compression fracture and sclerosis is seen again. Subtle focal sclerosis in the 6th anterior right rib. The configuration suggests a healed fracture more than a metastasis. Other subtle rib lesion seen at CT are not definitely identifiable here. Procedure Note Baljit Campo MD - 02/11/2024 FULL RESULT: Examination: XR CHEST 2 VW on 02/11/2024 8:28 AM. Clinical History: Breast cancer Indication: Chronic cough Comparison: 05/05/2023 Technique: Posteroanterior, lateral and dual-energy radiographs of thechest Findings: Support Apparatus: None. Lungs/Pleura/Mediastinum: Slight blunting of the left costophrenic sulcusis seen again. There is a little more haziness in the left lower lung.Presumed radiation treatment effects at the right lung apex are stable. Noother focal consolidation. Heart size is normal. Aortic atherosclerosis. Other: Cholecystectomy clips. Marked T12 compression fracture andsclerosis is seen again. Subtle focal sclerosis in the 6th anterior rightrib. The configuration suggests a healed fracture more than a metastasis.Other subtle rib lesion seen at CT are not definitely identifiable here. IMPRESSION: 1. Small left pleural effusion with probably increased associatedatelectasis or pneumonia in the left lower lung. 2. T12 compression fracture presumably due to underlying metastaticdisease unchanged. ACTIONABLE ITEMS/RECOMMENDATIONS*: None. *An Actionable Finding is a finding that may be unrelated to the originalreason for imaging but potentially actionable, meaning furtherinvestigation may be necessary. The Actionable Findings Vigilance Unit(AFVU) assists medical providers with responding to additional radiologicfindings that are unexpected and potentially actionable. Yancy Roberson MD IMG DIAGNOSTIC IMAGI NG ORDERABLES * MRI Brain with and without Contrast (10/04/2023 7:51 AM BIBLICAL LANGUAGES PROFESSOR) Anatomical Region Laterality Modality Head Magnetic Resonan ce 10/04/2023 9:21 AM BIBLICAL LANGUAGES PROFESSOR Impressions 10/04/2023 9:24 AM BIBLICAL LANGUAGES PROFESSOR 1. No evidence of an acute infarct. 2. No evidence of enhancing intracranial metastases. Narrative 10/04/2023 9:24 AM BIBLICAL LANGUAGES PROFESSOR FULL RESULT: Examination: MRI BRAIN W WO [...] intracranial metastases. Yvette De La Torre APRN [facility] MRI ORDERABLES * CT Chest Abdomen [...] of2 resultswithin the time period is included. Creatinine 1.20(H) 0.51 - 0.95 mg/dL [place] Comment:Testing performed at [facility], [address] [facility], [place] [address] Blood 07/19/2023 6:28 AM CDT 07/19/2023 6:28 AM CDT Yvette De La Torre APRN LAB BLOOD ORDERABLES [address], [facility] [address] [place] [address] * (ABNORMAL) .CBC (07/19/2023 6:28 AM CDT) Only the most recent of2 resultswithin the time period is included. WBC 7.9 4.1 - 10.5 K/uL [place] Comment:All components of th e CBC performed at [facility], [address] [place] [address] RBC 3.09(L) 3.99 - 5.46 M/uL [place] Comment:All components of th e CBC performed at [facility], [address] [place] [address] Hgb 9.9(L) 12.2 - 15.3 gm/dL [place] Comment:As part of CBC or as an individual orderable testing performed at [facility], [address] [place] [address] Hct 30.7(L) 36.4 - 46.8 % [place] Comment:As part of CBC testi ng performed at [facility], [address] [place] [address] MCV 99 82 - 99 fL [place] Comment:As part of CBC testi ng performed at [facility], [address] [place] [address] MCH 32.0 26.6 - 33.2 pg [place] Comment:As part of CBC testi ng performed at [facility], [address] [place] [address] MCHC 32.2 31.1 - 35.2 gm/dL [place] Comment:As part of CBC testi ng performed at [facility], [address] [place] [address] RDW-SD 48.8 37.5 - 49.7 fL [place] Comment:As part of CBC testi ng performed at [facility], [address] [place] [address] RDW-CV 13.3 11.6 - 15.5 % [place] Comment:As part of CBC testi ng performed at [facility], [address] [place] [address], [place] [address] Platelet count 199 160 - 397 K/uL [place] Comment:As part of CBC or an individual orderable testing performed at [facility], [address] [place] [address], [place] [address] MPV 9.8 9.1 - 12.6 fL [place] Comment:As part of CBC testi ng performed at [facility], [address] [place] [address], [place] [address] Blood 07/19/2023 6:28 AM CDT 07/19/2023 6:28 AM CDT Yvette De La Torre APRN LAB BLOOD ORDERABLES [address], [facility] [address] [place] [address] * (ABNORMAL) Glomerular Filtration Rate (07/19/2023 6:28 AM CDT) Only the most recent of2 resultswithin the time period is included. eGFR 47(L) >=60 mL/min/1.7 3 sq. m [place] Comment: The eGFRcr is calculated with the [...] fulfill criteria for CKD. Testing performed at [facility], [address] [place] [address] Blood 07/19/2023 6:28 AM CDT 07/19/2023 6:28 AM CDT Yvette De La Torre APRN LAB BLOOD ORDERABLES Performing Organization Address [facility] Co de Phone Number [place] [phone] [place] [address] * Fractionated Bilirubin (07/19/2023 6:28 AM CDT) Only the most recent of2 resultswithin the time period is included. [facility] Bili Total <0.3 <=1.2 mg/dL [place] Comment: Direct and indirect bilirubin will not be reported when Total bilirubin result is <0.3 mg/dL Indocyanine Green (ICG) may cause falsely elevated bilirubin results. Total and direct bilirubin must not be measured from samples containing indocyanine green. False elevation of total bilirubin can be seen in patients with IgG concentrations above 28 g/L. Testing performed at [facility], [address] [place] [address] Blood 07/19/2023 6:28 AM CDT 07/19/2023 6:28 AM CDT Yvette De La Torre APRN LAB BLOOD ORDERABLES Performing Organization Address [facility] Co de Phone Number [place] [phone] [place] [address] * (ABNORMAL) Differential (07/19/2023 6:28 AM CDT) Only the most recent of2 resultswithin the time period is included. [facility] Neutrophil % 75.2(H) 43.2 - 72.7 % [place] Comment:All components of th e Differential performed at [facility], [address] [place] [address] Lymphocyte % 14.2(L) 16.8 - 46.2 % [place] Comment:As part of the Diffe rential testing performed at [facility], [address] [place] [address], [place] [address] Monocyte % 7.0 5.1 - 12.5 % [place] Comment:As part of the Diffe rential testing performed at [facility], [address] [place] [address], [place] [address] Eosinophil % 3.4 0.4 - 6.3 % [place] Comment:As part of the Diffe rential testing performed at [facility], [address] [place] [address] Basophil % 0.1(L) 0.2 - 1.4 % [place] Comment:As part of the Diffe rential testing performed at [facility], [address] [place] [address], [place] [address] IGRE % 0.1 0.1 - 1.5 % [place] Comment: IGRE % count includes Metamyelocytes, Myelocytes, and Promyelocytes. As part of the Differential testing performed at [facility], [address] [place] [address], [place] [address] Neutrophil Abs 5.93 1.95 - 7.25 K/uL [place] Comment:As part of the Diffe rential testing performed at [facility], [address] [place] [address], [place] [address] Lymphocyte Abs 1.12 1.01 - 3.24 K/uL [place] Comment:As part of the Diffe rential testing performed at [facility], [address] [place] [address], [place] [address] Monocyte Abs 0.55 0.24 - 0.85 K/uL [place] Comment:As part of the Diffe rential testing performed at [facility], [address] [place] [address], [place] [address] Eosinophil Abs 0.27 0.02 - 0.50 K/uL [place] Comment:As part of the Diffe rential testing performed at [facility], [address] [place] [address] Basophil Abs 0.01(L) 0.02 - 0.09 K/uL [place] Comment:As part of the Diffe rential testing performed at [facility], [address] [place] [address] IG Abs 0.01 0.01 - 0.12 K/uL [place] Comment:As part of the Diffe rential testing performed at [facility], [address] [place] [address], [place] [address] Blood 07/19/2023 6:28 AM CDT 07/19/2023 6:28 AM CDT Yvette De La Torre APRN LAB BLOOD ORDERABLES [place] [id number] [place] [address] * BUN (07/19/2023 6:28 AM CDT) Only the most recent of2 resultswithin the time period is included. BUN 18 6 - 23 mg/dL [place] Comment:Testing performed at [facility], [address] [place] [address] Blood 07/19/2023 6:28 AM CDT 07/19/2023 6:28 AM CDT Yvette De La Torre APRN LAB BLOOD ORDERABLES [place] [id number] [place], [place] [address] * ALT (07/19/2023 6:28 AM CDT) Only the most recent of2 resultswithin the time period is included. ALT 13 <=33 U/L [place] Comment:Testing performed at [facility], [address] [place] [address] Blood 07/19/2023 6:28 AM CDT 07/19/2023 6:28 AM CDT Yvette P Potter OBSTETRICAL TECH LAB BLOOD ORDERABLES [address] [address] * Aspartate Aminotransferase (07/19/2023 6:28 AM CDT) Only the most recent of2 resultswithin the time period is included. AST 19 <=32 U/L [place] Comment:Testing performed at [facility], [address] [place] [address] Blood 07/19/2023 6:28 AM CDT 07/19/2023 6:28 AM CDT Yvette De La Torre APRN LAB BLOOD ORDERABLES Performing Organization Address [facility] Co de Phone Number [address] [address] * (ABNORMAL) Total Protein (07/19/2023 6:28 AM CDT) Only the most recent of2 resultswithin the time period is included. Total Protein 6.3(L) 6.4 - 8.3 g/dL [place] Comment:Testing performed at [facility], [address] [place] [address] Blood 07/19/2023 6:28 AM CDT 07/19/2023 6:28 AM CDT Yvette De La Torre APRN LAB BLOOD ORDERABLES [address] [address] * Alkaline Phosphatase (07/19/2023 6:28 AM CDT) Only the most recent of2 resultswithin the time period is included. Alk Phos 60 35 - 104 U/L [place] Comment:Testing performed at [facility], [address] [place], [place] [id number] Blood 07/19/2023 6:28 AM CDT 07/19/2023 6:28 AM CDT Yvette De La Torre APRN LAB BLOOD ORDERABLES Performing Organization Address [facility]/ZIP Co de Phone Number [place] [phone] [place] [address] * (ABNORMAL) Glucose Level (07/19/2023 6:28 AM CDT) Only the most recent of2 resultswithin the time period is included. Glucose Level 187(H) 70 - 99 mg/dL [place] Comment: Effective 05/27/16, the glucose reference intervals have been updated based on [place] Diabetes [employer] guidelines (Standards of Medical Care in Diabetes 2016. Diabetes Care 2016; 39: S13-S22). Fasting blood glucose: Normal: 70-99 mg/dL Impaired fasting glucose (increased risk for diabetes or pre-diabetes): 100- 125 mg/dL Diabetes mellitus: >/=126 mg/dL Random blood glucose: Normal: 70-199 mg/dL Note: Random glucose >100 mg/dL is associated with increased risk for diabetes Testing performed at [facility], [address] [place] [address] Blood 07/19/2023 6:28 AM CDT 07/19/2023 6:28 AM CDT Yvette De La Torre APRN LAB BLOOD ORDERABLES [place] [phone] [place] [address] * Calcium Level (07/19/2023 6:28 AM CDT) Only the most recent of2 resultswithin the time period is included. Calcium Lvl 8.6 8.4 - 10.2 mg/dL [place] Comment:Testing performed at [facility], [address] [place] [address] Blood 07/19/2023 6:28 AM CDT 07/19/2023 6:28 AM CDT Yvette De La Torre APRN LAB BLOOD ORDERABLES [address], [facility] [address] [place] [address] * (ABNORMAL) Albumin Level (07/19/2023 6:28 AM CDT) Only the most recent of2 resultswithin the time period is included. Albumin Lvl 3.3(L) 3.5 - 5.2 gm/dL [place] Comment:Testing performed at [facility], [address] [place] [address] Blood 07/19/2023 6:28 AM CDT 07/19/2023 6:28 AM CDT Yvette De La Torre APRN LAB BLOOD ORDERABLES [address] [address] * Electrolyte Panel (07/19/2023 6:28 AM CDT) Only the most recent of2 resultswithin the time period is included. Sodium Lvl 138 136 - 145 mEq/L [place] Comment:Testing performed at [facility], [address] [place] [address] Potassium Lvl 3.9 3.5 - 5.1 mEq/L [place] Comment:Testing performed at [facility], [address] [place] [address] Chloride 105 98 - 107 mEq/L [place] Comment:Testing performed at [facility], [address] [place] [address] CO2 23 22 - 29 mEq/L [place] Comment:Testing performed at [facility], [address] [place] [address] Anion Gap 10 4 - 14 mEq/L [place] Comment:Testing performed at [facility], [address] [facility], [place] [address] Blood 07/19/2023 6:28 AM CDT 07/19/2023 6:28 AM CDT Yvette De La Torre OBSTETRICAL TECH LAB BLOOD ORDERABLES [facility] [address] [facility], [facility] [address] [place] [address] * CT Chest Pulmonary Embolism with Contrast [...] with the final report. Benito Hooper MD G CT ORDERABLES * CT Abdomen Pelvis with [...] IMPRESSION: 1. Decreased hepatic and stable retroperitoneal eliad and osseousmetastatic disease. 2. Ill-defined focal hypodensities [...] Clean Dev Yes POC TEL[facility] Performing Lab [facility] POC [place] Comment:[facility], [facility] [facility], [place] [address]; Polisher Brass: Sara Velazquez MD; Waived Point of Care Testing - Radha Greenwood MD Blood 04/15/2023 8:40 PM CDT 04/15/2023 8:40 PM CDT Benito Hooper MD POCT ORDERABLES - DE VICE POC TEL[facility] Unless otherwise noted, all lab tests performed by: Division of Pathology and Laboratory Medicine [address] [place] [address] * Clot Expiration Date (04/15/2023 6:07 PM CDT) T & S Expiration 04/18/2023 [facility] Blood 04/15/2023 6:07 PM CDT 04/15/2023 7:43 PM CDT Shameka Carson MD BLOOD BANK TEST ORD ERABLES Performing Organization Address [facility] Co de Phone Number [facility] Unless otherwise noted, all lab tests performed by: Division of Pathology and Laboratory Medicine [address] [place] [address] * TMP Interpretation Antibody Screen Negative (04/15/2023 6:07 PM CDT) Pathologist [facility] TMP Auto Neg ABSC Interp At the present time, patient plasma shows no evidence of RBC alloantibodi es. [facility] Comment: MD Sofya MARIA6 Dictated by: MD Sofya MARIA Dictated Date/Time: 04.16.2023 8:30 AM CDT Transcribed Date/Time: 04.16.2023 8:30 AM CDT Electronically Signed By: MD Sofya MARIA on 04.16.2023 8:30 AM C Blood 04/15/2023 6:07 PM CDT 04/15/2023 7:43 PM CDT Shameka Carson MD BLOOD BANK TEST ORD NOAH Performing Organization Address City/[facility]/ZIP Co de Phone Number [facility] Unless otherwise noted, all lab tests performed by: Division of Pathology and Laboratory Medicine [address] [place] [address] * aPTT (04/15/2023 6:07 PM CDT) [facility] aPTT 29.0 24.1 - 35.5 second(s) [facility] Blood 04/15/2023 6:07 PM CDT 04/15/2023 6:20 PM CDT Shameka Carson MD LAB BLOOD ORDERABLE S [facility] Unless otherwise noted, all lab tests performed by: Division of Pathology and Laboratory Medicine [address] [place] [address] * ABORh (04/15/2023 6:07 PM CDT) [facility] ABORh. O POS IA MD [facility] Blood 04/15/2023 6:07 PM CDT 04/15/2023 7:43 PM CDT Shameka Carson MD BLOOD BANK TEST ORD ERABLES [facility] Unless otherwise noted, all lab tests performed by: Division of Pathology and Laboratory Medicine [address] [place] [address] * Prothrombin Time with INR (04/15/2023 6:07 PM CDT) [facility] PT 13.8 11.9 - 14.5 second(s) [facility] INR 1.07 0.87 - 1.12 IA MD [facility] Blood 04/15/2023 6:07 PM CDT 04/15/2023 6:20 PM CDT Shameka Carson MD LAB BLOOD ORDERABLE S [facility] Unless otherwise noted, all lab tests performed by: Division of Pathology and Laboratory Medicine [address] [place] [address] * Antibody Screen (04/15/2023 6:07 PM CDT) [facility] ABSC. Negative ABSC [facility] Blood 04/15/2023 6:07 PM CDT 04/15/2023 7:43 PM CDT Shameka Carson MD BLOOD BANK TEST ORD ERABLES Performing Organization Address City/[facility]/ZIP Co de Phone Number [facility] Unless otherwise noted, all lab tests performed by: Division of Pathology and Laboratory Medicine [address] [place] [address] * Phosphorus Level (04/15/2023 6:07 PM CDT) [facility] Phosphorus 4.4 2.5 - 4.5 mg/dL [facility] Blood 04/15/2023 6:07 PM CDT 04/15/2023 6:33 PM CDT Shameka Carson MD LAB BLOOD ORDERABLE S Performing Organization Address [facility] de Phone Number [facility] Unless otherwise noted, all lab tests performed by: Division of Pathology and Laboratory Medicine [address] [place] [address] * (ABNORMAL) Magnesium Level (04/15/2023 6:07 PM CDT) [facility] Magnesium 2.8(H) 1.6 - 2.6 mg/dL [facility] Blood 04/15/2023 6:07 PM CDT 04/15/2023 6:33 PM CDT Shameka Carson MD LAB BLOOD ORDERABLE S Performing Organization Address [facility] de Phone Number [facility] Unless otherwise noted, all lab tests performed by: Division of Pathology and Laboratory Medicine [address] [place] [address] * LDH (04/15/2023 6:07 PM CDT) [facility] LDH 171 135 - 214 U/L [facility] Comment:Results greater than 1651 U/L may not be reliable due to matrix effect with extended dilution as it exceeds the associate team physician's recommended limit. Caution should be exercised when interpreting such values and done in conjunction with clinical context. Blood 04/15/2023 6:07 PM CDT 04/15/2023 6:33 PM CDT Shameka Carson MD LAB BLOOD ORDERABLE S [facility] Unless otherwise noted, all lab tests performed by: Division of Pathology and Laboratory Medicine [address] [place] [address] after 04/15/2023 Advance Directives Documents on File Type Date Recorded Patient Human Resources Supervisor Expl anation Advance Directives: Medical Power of [place] Shop Supervisor 11/09/2022 Medical Power of Att orney Advance Directives: Medical Power of [place] Shop Supervisor 11/04/2022 Medical Power of Att orney * DNR (Latest Code Status on File) Date Activated Date Inactivated Comments 10/29/2022 6:41 PM 11/08/2022 8:07 PM Question Answer Comments DNR obtained from: Legal Guardian or MPOA * Full Code Date Activated Date Inactivated Comments 10/27/2022 9:19 AM 10/29/2022 6:41 PM Care Teams Electric Motor Fitter Relationship Specialty Start Date End Date Sanjeev Mcgowan MD [address] [place] [phone] [email or web address] PCP - General Breast Medical Oncology 08/28/22 Thong Segura MD [address] [place] [address] [email or web address] [email or web address] Physician Head and Neck Surgery 01/21/23
[2024-04-14 13:39] LABS: Absolute Basophils 0.1 K/uL (0-0.5); Absolute Eosinophils 0.2 K/uL (0-0.5); Absolute Lymphocytes (CBC) 0.8 K/uL (0.7-4.9); Absolute Monocytes 0.4 K/uL (0.1-1.3); Absolute Neutrophil 4.9 K/uL (1.8-8.0); Basophils % 0.9 % (0-1.3); Eosinophils % 3.4 % (0-4.4); Hematocrit 29.8 % (36.0-45.0); Hemoglobin 10.1 g/dL (12.0-15.0); Lymphocytes % 13.1 % (15.3-44.8); MCH 32.8 pg (27.0-35.0); MCHC 33.9 g/dL (32.0-36.0); MCV 96.9 fL (80-100); MPV 8.3 fL (7.6-11.3); Monocytes % 6.5 % (3.3-12.3); Neutrophils % 76.1 % (41.7-73.7); Nucleated Red Blood Cells % 0.1 % (0-0); Platelets 228 thou/uL (152-406); RBC Red Blood Cell Count 3.07 M/uL (3.86-4.86); Red Cell Distribution Width 14.2 % (12.1-15.2); Specific Gravity 1.009 (1.005-1.030); Sqamous Epithelial None Seen /HPF (None Seen); Urine Bacteria <20 /HPF (<20); Urine Bilirubin NEGATIVE (Negative); Urine Blood Negative (Negative); Urine Clarity Clear (Clear); Urine Color Colorless (Yellow); Urine Culture Reflex Order NOT NEEDED; Urine Glucose NEGATIVE (Negative); Urine Ketones NEGATIVE (Negative); Urine Micro Reflex YN NO BILL MICROSCOPIC; Urine Mucus Slight /HPF (None Seen); Urine Nitrite NEGATIVE (Negative); Urine Protein NEGATIVE (Negative); Urine RBC None Seen /HPF (None Seen); Urine Urobilinogen Normal (Normal); Urine WBC <5 /HPF (<5); Urine pH 5.5 (5.0-7.0)
[2024-04-14 13:50] LABS: Anion Gap 11.4 mEq/L (5.0-15.0); Potassium 5.4 mEq/L (3.5-5.1)
--- NOTE | 2024-04-14 13:57 | RAD REPORT ---
EXAM DESCRIPTION: RAD - Chest Single View - 04/14/2024 1:32 pm CLINICAL HISTORY: COUGH Chest pain. COMPARISON: Chest Single View dated 01/26/2024; Chest Single View dated 11/19/2023; Chest Single View dated 10/28/2023; Chest Single View dated 10/17/2023 FINDINGS: Portable technique limits examination quality. The lungs are grossly clear. The heart is mildly prominent size. No displaced fractures.Atheroscleros is. IMPRESSION: No acute intrathoracic process suspected.
--- NOTE | 2024-04-14 14:10 | EDPHYS ---
Physician Documentation [facility] Name: Neris Nevarez Age: 78 yrs Sex: Female : 1945 Arrival Date: 04/14/2024 Time: 12:35 Bed 14 Private MD: ED Physician Rinku Waters HPI: 04/14 12:59 This 78 yrs old Female presents to ER via Wheelchair with complaints of Low ec2 BP, High Blood Sugar. 12:59 Patient arrives today for evaluation of generalized weakness. Reports ongoing for ec2 several days. Patient reports history of urinary tract infections. Denies any urinary complaints. No fevers or chills, no difficulty breathing. No issues with p.o. intake.. Historical: - Allergies: 12:43 No Known Allergies; ll1 - PMHx: 12:43 Cancer; breast; Cancer; breast; Diabetes - NIDDM; Hypertensive disorder; DVT; pleural ll1 effusion; Hypothyroidism; Pneumonia; - PSHx: 12:43 section; GALLBLADDER; mastectomy; right; ll1 - Immunization history:: Adult Immunizations up to date. - Infectious Disease History:: Denies. - Social history:: Smoking status: Patient denies any tobacco usage or history of. ROS: 12:59 Constitutional: as per hpi ec2 Exam: 12:59 Constitutional: GEN: NAD Head: atraumatic Eyes: EOMI Ears: External ears are ec2 normal. CV: regular rate LUNGS: no respiratory distress ABD: non-distended SKIN: no evidence of rashes MSK: no evidence of trauma NEURO: moves all extremities equally Vital Signs: 12:45 BP 160 / 52; Pulse 64; Resp 17; Temp 97.9; Pulse Ox 100% ; Pain 7/10; ll1 14:36 BP 142 / 51; Pulse 65; Resp 16; Pulse Ox 99% ; bp 12:45 Pain Scale: Adult ll1 MDM: 12:52 Patient medically screened. ec2 12:59 Data reviewed: vital signs. ED course: Patient arrives today for evaluation of ec2 generalized weakness. Examination remarkable for well-appearing nontoxic dividual has reassuring vital signs. Will obtain lab work, urine studies as well as chest x-ray. Differential diagnosis includes arrhythmia, electrolyte disturbances, anemia, urinary tract infection.. 13:56 ED course: EKG independently reviewed and interpreted by me, shows normal sinus rhythm, ec2 rate of 62, no acute ST segment elevations, intervals are nonconcerning, right bundle branch block noted.. 14:05 ED course: Metabolic profile shows slight hyperkalemia with a potassium of 5.4, normal ec2 anion gap, glucose slightly elevated to 40, renal dysfunction with a creatinine of 2.31 and GFR of 21. CBC shows slight anemia with a hemoglobin of 10.1. Chest x-ray independently reviewed and interpreted by me, shows no acute intrathoracic process. Urine studies are negative for infection. . 14:06 ED course: External records show patient with previous CBC with a hemoglobin of 9.9, ec2 metabolic profile with renal dysfunction with a creatinine of 2.12 and GFR of 24. These are grossly unchanged from today's testing. . 14:06 ED course: MDM: Differential diagnosis as documented above in ED course; All lab tests ec2 ordered and reviewed as documented above; Independent interpretation of tests: EKG as above; imaging as above; External records reviewed: Previous ED visit and associated lab work; History gathered from independent historian: Yes; . 04/14 12:58 Order name: Basic Metabolic Panel; Complete Time: 14:04 ec2 04/14 12:58 Order name: CBC with Diff; Complete Time: 14:04 ec2 04/14 12:58 Order name: UAM; Complete Time: 14:04 ec2 04/14 12:58 Order name: XRAY Chest (1 view); Complete Time: 14:04 ec2 04/14 12:58 Order name: EKG; Complete Time: 12:59 ec2 04/14 12:58 Order name: Cardiac monitoring; Complete Time: 12:59 ec2 04/14 12:58 Order name: EKG - Nurse/Tech; Complete Time: 13:38 ec2 04/14 12:58 Order name: IV Saline Lock; Complete Time: 13:27 ec2 04/14 12:58 Order name: Labs collected and sent; Complete Time: 13:27 ec2 04/14 12:58 Order name: O2 Per Protocol; Complete Time: 12:59 ec2 04/14 12:58 Order name: O2 Sat Monitoring; Complete Time: 12:59 ec2 Administered Medications: 13:27 Drug: NS 0.9% IV 1000 ml IV at 1 bolus Per protocol; 1000 mL bolus Route: IV; Rate: 1 bp bolus; Site: left forearm; 14:38 Follow up: IV Status: Completed infusion; IV Intake: 1000ml bp Disposition Summary: 04/14/24 14:09 Discharge Ordered Notes: Location: Home ec2 Condition: Stable ec2 Diagnosis - Weakness ec2 - Hyperglycemia, unspecified ec2 - Anemia, unspecified ec2 - Hyperkalemia ec2 Followup: ec2 - With: Private Physician - When: - Reason: Recheck today's complaints, Re-evaluation by your physician Discharge Instructions: - Discharge Summary Sheet ec2 - Weakness ec2 Forms: - Medication Reconciliation Form ec2 - Antibiotic Education ec2 - Prescription Opioid Use ec2 - Patient Portal Instructions ec2 - Leadership Thank You Letter ec2 Signatures: Dispatcher [employer] Arnie Padilla RN RN bp Lewis, Lynsay, RN RN ll1 Rinku Waters MD MD ec2
--- NOTE | 2024-04-14 14:10 | ER ---
Nurse's Notes [facility] Name: Neris Nevarez Age: 78 yrs Sex: Female : 1945 Arrival Date: 04/14/2024 Time: 12:35 Bed 14 Private MD: Diagnosis: Weakness;Hyperglycemia, unspecified;Anemia, unspecified;Hyperkalemia Presentation: 04/14 12:45 Chief complaint: Patient states: BP lower than normal when home health comes. Blood ll1 sugar 290's this AM, higher than her normal. Coronavirus screen: Client denies travel out of the [place] in the last 14 days. At this time, the client does not indicate any symptoms associated with coronavirus-19. Ebola Screen: Patient denies travel to an Ebola-affected area in the 21 days before illness onset. Initial Sepsis Screen: Does the patient meet any 2 criteria? No. Patient's initial sepsis screen is negative. Does the patient have a suspected source of infection? No. Patient's initial sepsis screen is negative. Risk Assessment: Do you want to hurt yourself or someone else? Patient reports no desire to harm self or others. Onset of symptoms was April 14, 2024. 12:45 Method Of Arrival: Wheelchair ll1 12:45 Acuity: YOLIE 3 ll1 Triage Assessment: 12:45 General: Appears in no apparent distress. Behavior is calm, cooperative, appropriate bp for age. Pain: Denies pain. EENT: No deficits noted. Neuro: Reports weakness in GENERALIZED. Cardiovascular: No deficits noted. Respiratory: No deficits noted. GI: No signs and/or symptoms were reported involving the gastrointestinal system. : No signs and/or symptoms were reported regarding the genitourinary system. Derm: No deficits noted. Musculoskeletal: No deficits noted. Historical: - Allergies: 12:43 No Known Allergies; ll1 - PMHx: 12:43 Cancer; breast; Cancer; breast; Diabetes - NIDDM; Hypertensive disorder; DVT; pleural ll1 effusion; Hypothyroidism; Pneumonia; - PSHx: 12:43 section; GALLBLADDER; mastectomy; right; ll1 - Immunization history:: Adult Immunizations up to date. - Infectious Disease History:: Denies. - Social history:: Smoking status: Patient denies any tobacco usage or history of. Screenin:36 [facility] ED Fall Risk Assessment (Adult) History of falling in the last 3 months, bp including since admission No falls in past 3 months (0 pts). Abuse screen: Denies threats or abuse. Denies injuries from another. Nutritional screening: No deficits noted. Tuberculosis screening: No symptoms or risk factors identified. Assessment: 12:45 General: SEE TRIAGE NOTE. bp 14:36 Reassessment: DC WITH FAMILY. bp Vital Signs: 12:45 BP 160 / 52; Pulse 64; Resp 17; Temp 97.9; Pulse Ox 100% ; Pain 7/10; ll1 14:36 BP 142 / 51; Pulse 65; Resp 16; Pulse Ox 99% ; bp 12:45 Pain Scale: Adult ll1 ED Course: 12:38 Patient arrived in ED. mr 12:40 Rinku Waters MD is Attending Physician. ec2 12:43 Arm band placed on Patient placed in an exam room, on a stretcher. ll1 12:46 Triage completed. ll1 12:59 Arnie Juárez, RN is Primary Nurse. bp 13:27 Initial lab(s) drawn, by me, sent to lab. Urine collected: clean catch specimen, clear. bp Inserted saline lock: 22 gauge in left forearm, using aseptic technique. Blood collected. 13:34 XRAY Chest (1 view) In Process Unspecified. EDMS 13:50 EKG done, by ED staff, reviewed by Rinku Waters MD. [email or web address] 14:36 Patient has correct armband on for positive identification. bp 14:36 No provider procedures requiring assistance completed. IV discontinued, intact, bp bleeding controlled, No redness/swelling at site. Pressure dressing applied. 14:37 Provided Education on: N/A. bp Administered Medications: 13:27 Drug: NS 0.9% IV 1000 ml IV at 1 bolus Per protocol; 1000 mL bolus Route: IV; Rate: 1 bp bolus; Site: left forearm; 14:38 Follow up: IV Status: Completed infusion; IV Intake: 1000ml bp Medication: 14:36 VIS not applicable for this client. bp Intake: 14:38 IV: 1000ml; Total: 1000ml. bp Outcome: 14:09 Discharge ordered by MD. ec2 14:36 Discharged to home via wheelchair, with family, bp 14:36 Condition: stable 14:36 Discharge instructions given to patient, family, Instructed on discharge instructions, follow up and referral plans. Demonstrated understanding of instructions, follow-up care, 14:38 Patient left the ED. bp Signatures: Dispatcher [employer] Radha Amin, Arnie Florez RN RN bp Lewis, Lynsay, RN RN ll1 Rinku Waters MD MD ec2 José Ta [email or web address]
[2024-04-14 14:45] VITALS: BP 142/51; TEMP 97.9; O2SAT 99
--- NOTE | 2024-04-17 15:03 | EKG ---
Test Date: 2024-04-14 Test Time: 13:41:01 Integrated Program Teacher: STONE MEASUREMENT RESULTS: Intervals: Rate: 62 ID: [id number] QRSD: 120 QT: 470 QTc: 477 [place]: P: 50 ID: [id number] QRS: 77 T: 54 INTERPRETIVE STATEMENTS: Normal sinus rhythm Low voltage QRS Right bundle branch block Abnormal ECG Compared to ECG 01/26/2024 16:59:46 Low QRS voltage now present Right bundle-branch block now present Electronically Signed On 04-17-24 14:54:14 CDT by Pete Webber
== END 2024-04-14 14:38 | disposition home or self-care (01) ==
LOC: ER 12:35
DX: E11.65 Type 2 diabetes mellitus with hyperglycemia (principal); D64.9 Anemia, unspecified; E87.5 Hyperkalemia
CPT/HCPCS: 36415; 71045; 80048; 81001; 85025; 93005; 96360; 99284

== ENCOUNTER 2024-04-21 22:09 | Emergency (ER) | payer OTHER ==
--- OUTSIDE RECORDS SUMMARY | 2024-04-21 22:12 | XMS REPORT | Clinical Summary ---
Author Name Unknown Organization [facility] Address [address] [place] [address] Care Team Providers Care Drop Hammer Setter Up Name Role Phone Sanjeev Mcgowan MD Primary [...] daily. 60 tablet 3 Active HYDROcodone-acet aminophen (Camby) 5 mg-325 mg per tabletIndication s:Infiltrating duct [...] by mouth daily. 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; 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); Chronic cough; Bilateral pneumonia 02/11/2024 8:00 AM CDT Ancillary Procedure [facility] [address] [place] [address], 2nd [place] [address] Yancy Roberson MD Chronic cough 02/11/2024 Travel 02/09/[address] [address] Yvette De La Torre, [employer] Infiltrating duct carcinoma, 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; Right> 01/20/2024 Orders Only MD Ezequiel Kwan[address] [address] Yvette De La Torre, [employer] Infiltrating duct carcinoma, 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; 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) 11/09/2023 Telephone Breast Center - Medical Oncology [facility], 5th [place] [address] Cam Valera RN 10/18/2023 Orders Only Cardiopulmonary Center - Pulmonology Medicine [address] [facility], 6th [place] [address] Yancy Roberson MD Chronic cough (Primary Dx) 10/04/2023 6:15 AM DOCUMENTATION LIAISON Ancillary Procedure [address] 2[address] [place] [address] Yvette De La Torre, [employer] Infiltrating duct carcinoma, 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; Right> 10/04/2023 Travel 09/10/[address] Imaging [facility], 7th [place] [address] Micki Wilde MD 09/10/2023 Orders Only MD Ezequiel Kwan[address] [place] [address] Yvette De La Torre P, [employer] Infiltrating duct carcinoma, 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; 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) 07/27/2023 9:20 AM CDT Telemedicine MD [place] - Breast Medical Oncology [address] [place] [address], [place] [address] Sanjeev Mcgowan MD Infiltrating duct carcinoma, 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; 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) 07/23/2023 Orders Only [address] [place] [address] Yvette De La Torre P, [employer] Infiltrating duct carcinoma, 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; 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) 07/22/2023 Orders Only MD [place] - Breast Medical Oncology [address] [place] [address], [place] [address] Sanjeev Mcgowan MD Infiltrating duct carcinoma, 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; Right> 07/22/2023 Orders Only [address] [place] [address] Yvette De La Torre P, [employer] 07/19/2023 10:30 AM CDT Infusion MD [facility] [place] - Infusion [address] [place] [address] 4th [facility] [place] [address] Yvette De La Torre P, [employer] Infiltrating duct carcinoma, 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; Right> 07/19/2023 10:00 AM CDT Follow-Up [facility] - Breast Medical Oncology [address] [place] [address], [place] [address] Sanjeev Mcgowan MD Infiltrating duct carcinoma, 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; 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) 07/19/2023 6:25 AM CDT Ancillary Procedure [address] [place] [address] Yvette De La Torre P, [employer] Infiltrating duct carcinoma, 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; Right> 07/19/2023 Orders Only MD [facility] [address] [place] [address] Yvette De La Torre P, [employer] 07/19/2023 Travel 07/06/2023 Orders Only [facility] [address] [place] [address], [place] [address] Potter, Yvette P, [employer] Infiltrating duct carcinoma, 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; Right> 07/02/2023 Orders Only [facility] [address] [place] [address], [place] [address] Potter, Yvette P, [employer] Infiltrating duct carcinoma, 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; Right> 06/25/2023 Orders Only [address] [place] [address] Pottessa, Yvette P, [employer] 06/20/2023 Refill [facility] - Breast Medical Oncology [address] [place] [address] Pottessa, Yvette P, [employer] Infiltrating duct carcinoma, 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; Right> 05/31/2023 Telephone Colorectal Center - Medical Oncology [facility], 7th [place] [address] Kate Yip MA 05/05/2023 2:00 PM CDT Follow-Up Cardiopulmonary Center - Pulmonology Medicine [address] [place] [address], 6th [place] [address] Aakash Don Y, [employer] Infiltrating duct carcinoma, 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; 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); Pleural effusion; Dysphonia 05/05/2023 1:30 PM CDT Ancillary Procedure Diagnostic Center [facility], 2nd Floor [facility] [place] [address] Aakash Don Y, [employer] Pleural effusion 05/05/2023 Orders Only [address] [place] [address] Yvette De La Torre P, [employer] Infiltrating duct carcinoma, 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; 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) 05/05/2023 Travel after 04/22/2023 Surgical History Surgery Date Site/Laterality Comments MASTECTOMY [...] Body Mass Index 23.19 10/29/2022 10:00 AM DOCUMENTATION LIAISON Plan of Treatment Health Maintenance Due Date Last Done Comments COVID-19 Vaccine (#1) 1950 Influenza Vaccine 07/02/2024 10/30/2023 Procedures Procedure Name Priority Date/Time Associated Diagnosis Comments XR CHEST 2 VW Routine 02/11/2024 8:28 AM CDT Chronic cough MRI BRAIN W WO CONTRAST Routine 10/04/20 23 7:51 AM DOCUMENTATION LIAISON Infiltrating duct carcinoma, NOS of overlapping lesion [...] Routine 05/05/2023 1:20 PM CDT Pleural effusion after 04/22/2023 Results * X-ray Chest 2 Views (02/11/2024 [...] with and without Contrast (10/04/2023 7:51 AM DOCUMENTATION LIAISON) Anatomical Region Laterality Modality Head Magnetic Resonan ce 10/04/2023 9:21 AM DOCUMENTATION LIAISON Impressions 10/04/2023 9:24 AM DOCUMENTATION LIAISON 1. No evidence of an acute infarct. 2. No evidence of enhancing intracranial metastases. Narrative 10/04/2023 9:24 AM DOCUMENTATION LIAISON FULL RESULT: Examination: MRI BRAIN W WO [...] intracranial metastases. Yvette De La Torre APRN [facility] MRI ORDERABLES * CT Chest Abdomen Pelvis [...] (ABNORMAL) .Serum Creatinine (07/19/2023 6:28 AM CDT) Creatinine 1.20(H) 0.51 - 0.95 mg/dL [facility] Comment:[facility], [address] [place] [address], [place] [address] Blood 07/19/2023 6:28 AM CDT 07/19/2023 6:28 AM CDT Yvette De La Torre APRN LAB BLOOD ORDERABLES [facility] [address] [facility], [facility] [address] [place] [address] * (ABNORMAL) .CBC (07/19/2023 6:28 AM CDT) [facility] Signature WBC 7.9 4.1 - 10.5 K/uL [facility] Comment:All components of th e CBC performed at [facility], [address] [place] [address] RBC 3.09(L) 3.99 - 5.46 M/uL [facility] Comment:All components of th e CBC performed at [facility], [address] [place] [address] Hgb 9.9(L) 12.2 - 15.3 gm/dL [facility] Comment:As part of CBC or as an individual orderable testing performed at [facility], [address] [place] [address] Hct 30.7(L) 36.4 - 46.8 % [facility] Comment:As part of CBC testi ng performed at [facility], [address] [place], [place] [id number] MCV 99 82 - 99 fL [facility] Comment:As part of CBC testi ng performed at [facility], [address] [place], [place] [id number] MCH 32.0 26.6 - 33.2 pg [facility] Comment:As part of CBC testi ng performed at [facility], [address] [place] [address] MCHC 32.2 31.1 - 35.2 gm/dL [facility] Comment:As part of CBC testi ng performed at [facility], [address] [place], [place] [id number] RDW-SD 48.8 37.5 - 49.7 fL [facility] Comment:As part of CBC testi ng performed at [facility], [address] [place], [place] [id number] RDW-CV 13.3 11.6 - 15.5 % [facility] Comment:As part of CBC testi ng performed at [facility], [address] [place], [place] [id number] Platelet count 199 160 - 397 K/uL [facility] Comment:As part of CBC or an individual orderable testing performed at [facility], [address] [place] [address] MPV 9.8 9.1 - 12.6 fL [facility] Comment:As part of CBC testi ng performed at [facility], [address] [place] [address], [place] [address] Blood 07/19/2023 6:28 AM CDT 07/19/2023 6:28 AM CDT Yvette De La Torre APRN LAB BLOOD ORDERABLES [address], [facility] [address] [place] [address] * (ABNORMAL) Glomerular Filtration Rate (07/19/2023 6:28 AM CDT) eGFR 47(L) >=60 mL/min/1.7 3 sq. m [facility] Comment: The eGFRcr is calculated with the [...] fulfill criteria for CKD. Testing performed at [facility], [address] [place] [address], [place] [address] Blood 07/19/2023 6:28 AM CDT 07/19/2023 6:28 AM CDT Yvette De La Torre APRN LAB BLOOD ORDERABLES [place] [address] [place] [address] * Fractionated Bilirubin (07/19/2023 6:28 AM CDT) [facility] Bili Total <0.3 <=1.2 mg/dL [facility] Comment: Direct and indirect bilirubin will not be reported when Total bilirubin result is <0.3 mg/dL Indocyanine Green (ICG) may cause falsely elevated bilirubin results. Total and direct bilirubin must not be measured from samples containing indocyanine green. False elevation of total bilirubin can be seen in patients with IgG concentrations above 28 g/L. Testing performed at [facility], [address] [place] [address] Blood 07/19/2023 6:28 AM CDT 07/19/2023 6:28 AM CDT Yvette De La Torre APRN LAB BLOOD ORDERABLES Performing Organization Address City/[facility]/ZIP Co de Phone Number [place] [address] [place] [address] * (ABNORMAL) Differential (07/19/2023 6:28 AM CDT) [facility] Neutrophil % 75.2(H) 43.2 - 72.7 % [facility] Comment:All components of th e Differential performed at [facility], [address] [place] [address] Lymphocyte % 14.2(L) 16.8 - 46.2 % [facility] Comment:As part of the Diffe rential testing performed at [facility], [address] [place] [address] Monocyte % 7.0 5.1 - 12.5 % [facility] Comment:As part of the Diffe rential testing performed at [facility], [address] [place] [address] Eosinophil % 3.4 0.4 - 6.3 % [facility] Comment:As part of the Diffe rential testing performed at [facility], [address] [place], [place] [id number] Basophil % 0.1(L) 0.2 - 1.4 % [facility] Comment:As part of the Diffe rential testing performed at [facility], [address] [place], [place] [id number] IGRE % 0.1 0.1 - 1.5 % [facility] Comment: IGRE % count includes Metamyelocytes, Myelocytes, and Promyelocytes. As part of the Differential testing performed at [facility], [address] [place], [place] [phone] Neutrophil Abs 5.93 1.95 - 7.25 K/uL [facility] Comment:As part of the Diffe rential testing performed at [facility], [address] [place], [place] [id number] Lymphocyte Abs 1.12 1.01 - 3.24 K/uL [facility] Comment:As part of the Diffe rential testing performed at [facility], [address] [place] [address] Monocyte Abs 0.55 0.24 - 0.85 K/uL [facility] Comment:As part of the Diffe rential testing performed at [facility], [address] [place] [address] Eosinophil Abs 0.27 0.02 - 0.50 K/uL [facility] Comment:As part of the Diffe rential testing performed at [facility], [address] [place] [address] Basophil Abs 0.01(L) 0.02 - 0.09 K/uL [facility] Comment:As part of the Diffe rential testing performed at [facility], [address] [place], [place] [phone] IG Abs 0.01 0.01 - 0.12 K/uL [facility] Comment:As part of the Diffe rential testing performed at [facility], [address] [place], [place] [id number] Blood 07/19/2023 6:28 AM CDT 07/19/2023 6:28 AM CDT Yvette De La Torre [employer] LAB BLOOD ORDERABLES [address], [address] [address] * BUN (07/19/2023 6:28 AM CDT) BUN 18 6 - 23 mg/dL [facility] Comment:Testing performed at [facility], [address] [place] [address] Blood 07/19/2023 6:28 AM CDT 07/19/2023 6:28 AM CDT Yvette De La Torre APRN LAB BLOOD ORDERABLES [place] [id number] [place] [address] * ALT (07/19/2023 6:28 AM CDT) ALT 13 <=33 U/L [facility] Comment:Testing performed at [facility], [address] [place] [address] Blood 07/19/2023 6:28 AM CDT 07/19/2023 6:28 AM CDT Yvette De La Torre [employer] LAB BLOOD ORDERABLES [address] [address] * Aspartate Aminotransferase (07/19/2023 6:28 AM CDT) AST 19 <=32 U/L [facility] Comment:Testing performed at [facility], [address] [place] [address] Blood 07/19/2023 6:28 AM CDT 07/19/2023 6:28 AM CDT Yvette De La Torre APRN LAB BLOOD ORDERABLES [address], [address] [address] * (ABNORMAL) Total Protein (07/19/2023 6:28 AM CDT) [facility] Total Protein 6.3(L) 6.4 - 8.3 g/dL [facility] Comment:Testing performed at [facility], [address] [place] [address] Blood 07/19/2023 6:28 AM CDT 07/19/2023 6:28 AM CDT Yvette De La Torre APRN LAB BLOOD ORDERABLES [address], [address] [address] * Alkaline Phosphatase (07/19/2023 6:28 AM CDT) [facility] Alk Phos 60 35 - 104 U/L [facility] Comment:Testing performed at [facility], [address] [place] [address] Blood 07/19/2023 6:28 AM CDT 07/19/2023 6:28 AM CDT Yvette De La Torre APRN LAB BLOOD ORDERABLES [address], [address] [address] * (ABNORMAL) Glucose Level (07/19/2023 6:28 AM CDT) [facility] Glucose Level 187(H) 70 - 99 mg/dL [facility] Comment: Effective 05/27/16, the glucose reference intervals have been updated based on [place] [employer] guidelines (Standards of Medical Care in Diabetes 2016. Diabetes Care 2016; 39: S13-S22). Fasting blood glucose: Normal: 70-99 mg/dL Impaired fasting glucose (increased risk for diabetes or pre-diabetes): 100- 125 mg/dL Diabetes mellitus: >/=126 mg/dL Random blood glucose: Normal: 70-199 mg/dL Note: Random glucose >100 mg/dL is associated with increased risk for diabetes Testing performed at [facility], [address] [place] [address] Blood 07/19/2023 6:28 AM CDT 07/19/2023 6:28 AM CDT Yvette De La Torre APRN LAB BLOOD ORDERABLES [address], [address] [address] * Calcium Level (07/19/2023 6:28 AM CDT) Calcium Lvl 8.6 8.4 - 10.2 mg/dL [facility] Comment:Testing performed at [facility], [address] [place] [address] Blood 07/19/2023 6:28 AM CDT 07/19/2023 6:28 AM CDT Yvette De La Torre APRN LAB BLOOD ORDERABLES [address], [place] [id number] [place] [address] * (ABNORMAL) Albumin Level (07/19/2023 6:28 AM CDT) Albumin Lvl 3.3(L) 3.5 - 5.2 gm/dL [facility] Comment:Testing performed at [facility], [address] [place] [address] Blood 07/19/2023 6:28 AM CDT 07/19/2023 6:28 AM CDT Yvette De La Torre APRN LAB BLOOD ORDERABLES [place] [address] [place] [address] * Electrolyte Panel (07/19/2023 6:28 AM CDT) Sodium Lvl 138 136 - 145 mEq/L [facility] Comment:Testing performed at [facility], [address] [place] [address] Potassium Lvl 3.9 3.5 - 5.1 mEq/L [facility] Comment:Testing performed at [facility], [address] [place] [address] Chloride 105 98 - 107 mEq/L [facility] Comment:Testing performed at [facility], [address] [place] [address] CO2 23 22 - 29 mEq/L [facility] Comment:Testing performed at [facility], [address] [place] [address] Anion Gap 10 4 - 14 mEq/L [facility] Comment:Testing performed at [facility], [address] [place] [address] Blood 07/19/2023 6:28 AM CDT 07/19/2023 6:28 AM CDT Yvette De La Torre APRN LAB BLOOD ORDERABLES [address], [facility] [address] [place] [address] after 04/22/2023 Advance Directives Documents on File Type Date Recorded Patient Relationship Manager Expl anation Advance Directives: Medical Power of Ophthalmology Assistant 11/09/2022 Medical Power of Att orney Advance Directives: Medical Power of Ophthalmology Assistant 11/04/2022 Medical Power of Att orney * DNR (Latest Code Status on File) Date Activated Date Inactivated Comments 10/29/2022 6:41 PM 11/08/2022 8:07 PM Question Answer Comments DNR obtained from: Legal Guardian or MPOA * Full Code Date Activated Date Inactivated Comments 10/27/2022 9:19 AM 10/29/2022 6:41 PM Care Teams Drop Hammer Setter Up Relationship Specialty Start Date End Date Sanjeev Mcgowan MD [address] [place] [id number] [email or web address] - General Breast Medical Oncology 08/28/22 Thong Segura MD [address] [place] [id number] [email or web address] Consulting Physician Head and Neck Surgery 01/21/23
[2024-04-21 22:57] LABS: Absolute Basophils 0.1 K/uL (0-0.5); Absolute Eosinophils 0.2 K/uL (0-0.5); Absolute Monocytes 0.5 K/uL (0.1-1.3); Absolute Neutrophil 5.9 K/uL (1.8-8.0); Basophils % 0.7 % (0-1.3); Eosinophils % 3.1 % (0-4.4); Hematocrit 29.4 % (36.0-45.0); Hemoglobin 9.9 g/dL (12.0-15.0); Lymphocytes % 12.6 % (15.3-44.8); MCH 32.5 pg (27.0-35.0); MCHC 33.5 g/dL (32.0-36.0); MPV 8.6 fL (7.6-11.3); Monocytes % 7.1 % (3.3-12.3); Neutrophils % 76.5 % (41.7-73.7); Platelets 230 thou/uL (152-406); RBC Red Blood Cell Count 3.04 M/uL (3.86-4.86); Red Cell Distribution Width 14.4 % (12.1-15.2)
[2024-04-21 23:02] LABS: PT Prothrombin Time 13.1 SECONDS (9.4-12.5); Protime INR 1.2
[2024-04-21 23:05] LABS: Specific Gravity 1.012 (1.005-1.030); Sqamous Epithelial <5 /HPF (None Seen); Urine Bacteria None Seen /HPF (<20); Urine Bilirubin NEGATIVE (Negative); Urine Blood Negative (Negative); Urine Clarity Clear (Clear); Urine Color Light-Yellow (Yellow); Urine Culture Reflex Order NOT NEEDED; Urine Glucose NEGATIVE (Negative); Urine Ketones NEGATIVE (Negative); Urine Micro Reflex YN NO BILL MICROSCOPIC; Urine Mucus Slight /HPF (None Seen); Urine Nitrite NEGATIVE (Negative); Urine Protein NEGATIVE (Negative); Urine RBC <5 /HPF (None Seen); Urine Urobilinogen Normal (Normal); Urine WBC <5 /HPF (<5); Urine pH 5.5 (5.0-7.0)
[2024-04-21] MEDS ORDERED: NA CHLORIDE 0.9% 500 ML ONE (23:18)
[2024-04-21 23:19] LABS: ALT/SGPT < 14 U/L (13-56); AST/SGOT 16 U/L (15-37); Albumin/Globulin Ratio 0.7 (1.1-1.8); Alkaline Phosphatase 55 U/L (45-117); Anion Gap 9.8 mEq/L (5.0-15.0); BUN Blood Urea Nitrogen 55 mg/dL (7-18); Bicarbonate 24 mEq/L (21-32); Bilirubin Direct < 0.2 mg/dL (0-0.2); Bilirubin Indirect, Calculated 0.2 mg/dL (0.2-0.8); Bilirubin Total 0.4 mg/dL (0.2-1.0); Globulin 4.3 g/dL (2.3-3.5); Glomerular Filtration Rate 26 ml/min (=/>90); Glucose Level 194 mg/dL (74-106); Magnesium 1.9 mg/dL (1.6-2.4); NT PRO-BNP 1516 pg/mL (<450); Potassium 5.8 mEq/L (3.5-5.1); Protein, Total 7.3 g/dL (6.4-8.2); Sodium Level 136 mEq/L (136-145); Troponin High Sensitivity 8.3 pg/mL (<58.9)
[2024-04-21 23:25] LABS: SARS-CoV-2 Antigen CONTROL BLUE LINE VIS/BG OK; SARS-CoV-2 Antigen Rapid Res Negative (Negative)
[2024-04-22 01:58] LABS: Anion Gap 8.4 mEq/L (5.0-15.0); Potassium 5.4 mEq/L (3.5-5.1)
--- NOTE | 2024-04-22 03:48 | EDPHYS ---
Physician Documentation [facility] Name: Neris Nevarez Age: 78 yrs Sex: Female : 1945 Arrival Date: 04/21/2024 Time: 22:09 Bed 6 Private MD: ED Physician Gold Treadwell HPI: 04/21 22:13 This 78 yrs old Female presents to ER via Unassigned with complaints of Low BP.sp4 22:13 PMH Allergies: No Known Allergies; PMHx: Cancer; breast; Cancer; breast; Diabetes - sp4 NIDDM; Hypertensive disorder; DVT; pleural effusion; Hypothyroidism; Pneumonia PSHx: section; GALLBLADDER; mastectomy; right;. 04/23 00:33 78-year-old female presents with complaint of generalized weakness and blood pressure sp4 that was measured low at home.. Historical: - Allergies: 04/21 22:27 No Known Allergies; jw7 - PMHx: 22:27 Diabetes - NIDDM; DVT; Hypertensive disorder; Hypothyroidism; Pneumonia; pleural jw7 effusion; Cancer; breast; - PSHx: 22:27 section; GALLBLADDER; mastectomy; right; jw7 - Immunization history:: Adult Immunizations up to date, Client reports receiving the 2nd dose of the Covid vaccine, Flu vaccine is up to date. - Infectious Disease History:: Denies. - Social history:: Smoking status: Patient denies any tobacco usage or history of. Patient/guardian denies using alcohol, street drugs, IV drugs. - Family history:: not pertinent. ROS: 04/23 00:33 Constitutional: Negative for fever, chills, and weight loss, positive for generalized sp4 weakness All other systems are negative, Exam: 04/22 03:39 ECG was reviewed by the Attending Physician. ED's EKG at 2228 normal sinus rhythm sp4 with a rate of 60, incomplete right bundle branch block 04/23 00:33 Constitutional: This is a well developed, well nourished patient who is awake, alert, sp4 and in no acute distress. Head/Face: Normocephalic, atraumatic. Eyes: Pupils equal round and reactive to light, extra-ocular motions intact. Lids and lashes normal. Conjunctiva and sclera are not injected. Cornea within normal limits. Periorbital areas with no swelling, redness, or edema. ENT: Nares patent. No nasal discharge, no septal abnormalities noted. Tympanic membranes are normal and external auditory canals are clear. Oropharynx with no redness, swelling, or masses, exudates, or evidence of obstruction, uvula midline. Mucous membranes moist. Neck: Trachea midline, no thyromegaly or masses palpated, and no cervical lymphadenopathy. Supple, full range of motion without nuchal rigidity, or vertebral point tenderness. Chest/axilla: Normal chest wall appearance and motion. Nontender with no deformity. No lesions are appreciated. Cardiovascular: Regular rate and rhythm with a normal S1 and S2. No gallops, murmurs, or rubs. Normal PMI, no JVD. No pulse deficits. Respiratory: Lungs have equal breath sounds bilaterally, clear to auscultation and percussion. No rales, rhonchi or wheezes noted. No increased work of breathing, no retractions or nasal flaring. Abdomen/GI: Soft, with normal bowel sounds. No distension or tympany. No guarding or rebound. No evidence of tenderness throughout. Back: No spinal tenderness. No costovertebral tenderness. Skin: Warm, dry with normal turgor. Normal color with no rashes, no lesions, and no evidence of cellulitis. MS/ Extremity: Pulses equal, no cyanosis. Neurovascular intact. Full, normal range of motion. Neuro: Awake and alert, GCS 15, oriented to person, place, time, and situation. Cranial nerves II-XII grossly intact. Motor strength 5/5 in all extremities. Sensory grossly intact. Psych: Awake, alert, with orientation to person, place and time. Behavior, mood, and affect are within normal limits Vital Signs: 04/21 22:24 BP 126 / 40; Pulse 63; Resp 18 S; Temp 97.9(O); Pulse Ox 95% on R/A; Weight 54.43 kg; jw7 Height 4 ft. 10 in. ; Pain 0/10; 23:55 BP 134 / 51; Pulse 66; Resp 16; Pulse Ox 97% on R/A; kd4 04/22 01:06 BP 139 / 49; Pulse 60; Resp 14 S; Pulse Ox 96% on R/A; jw7 02:20 BP 163 / 53; Pulse 64; Resp 17; Pulse Ox 98% on R/A; kd4 04:36 BP 145 / 54; Pulse 64; Resp 18; Temp 98.3; Pulse Ox 98% on R/A; Pain 0/10; kd4 04/21 22:24 Body Mass Index 25.08 (54.43 kg, 147.32 cm) 7 06 22:24 Pain Scale: Adult jw7 04:36 Pain Scale: Adult kd4 [place] Coma Score: 04/23 00:33 Eye Response: spontaneous(4). Motor Response: obeys commands(6). Verbal Response: sp4 oriented(5). Total: 15. MDM: 04/21 22:15 Patient medically screened. 4 04/23 00:35 Differential Diagnosis altered mental status, sepsis, flu. Data reviewed: vital signs, sp4 nurses notes, old medical records, lab test result(s), EKG, radiologic studies, plain films. 00:36 ED course: Single view chest x-ray revealed bilateral lower lobe parenchymal opacities sp4 compatible with atelectasis, small left and possible small right pleural effusion, mild pulmonary venous congestion. Otherwise normal chest x-ray.. 04/21 22:15 Order name: Basic Metabolic Panel; Complete Time: 00:14 4 04/21 22:15 Order name: CBC with Diff; Complete Time: 00:14 4 04/21 22:15 Order name: LFT's; Complete Time: 00:14 4 04/21 22:15 Order name: Magnesium; Complete Time: 00:14 4 04/21 22:15 Order name: NT PRO-BNP; Complete Time: 00:14 [facility] 04/21 22:15 Order name: PT-INR; Complete Time: 00:14 4 04/21 22:15 Order name: Troponin HS; Complete Time: 00:14 4 04/21 22:22 Order name: Urinalysis W/Microscopic; Complete Time: 00:14 [facility] 04/21 22:22 Order name: SARS RAPID; Complete Time: 00:14 4 04/21 22:22 Order name: Influenza Screen (a \T\ B); Complete Time: 00:35 4 04/22 01:13 Order name: Troponin High Sensitivity; Complete Time: 03:38 [facility] 04/22 01:26 Order name: BMP; Complete Time: 02:01 [facility] 04/21 22:15 Order name: XRAY Chest (1 view) 4 04/21 22:15 Order name: EKG; Complete Time: 22:16 sp4 04/21 22:15 Order name: Cardiac monitoring; Complete Time: 22:48 4 04/21 22:15 Order name: EKG - Nurse/Tech; Complete Time: 22:48 sp4 04/21 22:15 Order name: IV Saline Lock; Complete Time: 22:48 sp4 04/21 22:15 Order name: Labs collected and sent; Complete Time: 22:48 sp4 04/21 22:15 Order name: O2 Per Protocol; Complete Time: 22:48 sp4 04/21 22:15 Order name: O2 Sat Monitoring; Complete Time: 22:48 4 EC/22 03:39 Rate is 60 beats/min. Rhythm is regular, Normal Sinus Rhythm. QRS [place] is Normal. [place] sp4 interval is normal. QRS interval is normal. QT interval is normal. No Q waves. T waves are Normal. No ST changes noted. Clinical impression: Normal ECG. Interpreted by me. Reviewed by me. Administered Medications: 04/21 23:20 Drug: NS 0.9% IV 500 ml IV at bolus once Route: IV; Rate: bolus; Site: left antecubital;kd4 04/22 04:39 Follow up: IV Status: Completed infusion kd4 04:34 Drug: Kayexalate PO 30 grams PO once Route: PO; kd4 04:38 Follow up: Response: No adverse reaction kd4 Disposition Summary: 04/22/24 03:48 Discharge Ordered Problem: new sp4 Symptoms: have improved sp4 Condition: Stable sp4 Diagnosis - Dehydration sp4 - Muscle weakness (generalized) sp4 - Chronic kidney disease stable, chronic anemia stable, Generalized weakness sp4 Followup: sp4 - With: Private Physician - When: 7 - 10 days - Reason: Recheck today's complaints Discharge Instructions: - Discharge Summary Sheet sp4 - Dehydration, Elderly sp4 Signatures: Dispatcher [employer] EDMS Caitie Dickson RN RN jw7 Gold Treadwell MD MD sp4 Cara Mercado RN RN kd4 Corrections: (The following items were deleted from the chart) 04/21 22:23 22:23 Urinalysis W/Microscopic+U.LAB.BRZ ordered. EDMS EDMS 22: 22:23 SARS-COV-2 Antigen Rapid+I.LAB.BRChito ordered. EDMS EDMS 22: 22:23 Influenza Screen (A \T\ B)+BA.LAB.BRZ ordered. EDMS EDMS 22: 22:27 PMHx: Cancer; breast; jw7 jw7 22:28 22:27 PMHx: Cancer; breast; jw7 jw7 22:28 22:27 PMHx: Cancer; breast; jw7 jw7 22:28 22:27 PMHx: Cancer, Breast; breast, stage 4; jw7 jw7
--- NOTE | 2024-04-22 03:48 | ER ---
Nurse's Notes [facility] Name: Neris Nevarez Age: 78 yrs Sex: Female : 1945 Arrival Date: 04/21/2024 Time: 22:09 Bed 6 Private MD: Diagnosis: Dehydration;Muscle weakness (generalized);Chronic kidney disease stable, chronic anemia stable, Generalized weakness Presentation: 04/21 22:24 Chief complaint: Patient states: I was laying in bed when I started feeling bad so I jw7 took my blood pressure and it was 91/48. I don't feel good and just feel "bluh". Coronavirus screen: At this time, the client does not indicate any symptoms associated with coronavirus-19. Ebola Screen: No symptoms or risks identified at this time. 22:24 Method Of Arrival: Wheelchair jw7 22:24 Initial Sepsis Screen: Does the patient meet any 2 criteria? No. Patient's initial jw7 sepsis screen is negative. Does the patient have a suspected source of infection? No. Patient's initial sepsis screen is negative. Risk Assessment: Do you want to hurt yourself or someone else? Patient reports no desire to harm self or others. Onset of symptoms was April 21, 2024. 22:24 Acuity: YOLIE 3 jw7 Triage Assessment: 22:27 General: Appears in no apparent distress. comfortable, Behavior is calm, cooperative, jw7 appropriate for age. Pain: Denies pain. EENT: No deficits noted. No signs and/or symptoms were reported regarding the EENT system. Neuro: Level of Consciousness is awake, alert, obeys commands, Oriented to person, place, time, situation, Appropriate for age. Cardiovascular: Heart tones S1 S2 present Capillary refill < 3 seconds Clubbing of nail beds is absent JVD is absent Patient's skin is warm and dry. Respiratory: Airway is patent Trachea midline Respiratory effort is even, unlabored, Respiratory pattern is regular, symmetrical. GI: Abdomen is round non-distended, Bowel sounds present X 4 quads. Abd is soft and non tender X 4 quads. : No deficits noted. No signs and/or symptoms were reported regarding the genitourinary system. Derm: Skin is intact, is healthy with good turgor, Skin is dry, Skin is normal, Skin temperature is warm. Musculoskeletal: Circulation, motion, and sensation intact. Range of motion: intact in all extremities. Historical: - Allergies: : No Known Allergies; jw7 - PMHx: : Diabetes - NIDDM; DVT; Hypertensive disorder; Hypothyroidism; Pneumonia; pleural jw7 effusion; Cancer; breast; - PSHx: 22: section; GALLBLADDER; mastectomy; right; jw7 - Immunization history:: Adult Immunizations up to date, Client reports receiving the 2nd dose of the Covid vaccine, Flu vaccine is up to date. - Infectious Disease History:: Denies. - Social history:: Smoking status: Patient denies any tobacco usage or history of. Patient/guardian denies using alcohol, street drugs, IV drugs. - Family history:: not pertinent. Screenin:29 [facility] ED Fall Risk Assessment (Adult) History of falling in the last 3 months, jw7 including since admission No falls in past 3 months (0 pts) Confusion or Disorientation No (0 pts) Intoxicated or Sedated No (0 pts) Impaired Gait Yes (1 pt) Mobility Assist Device Used Yes (1 pt) Altered Elimination No (0 pt) Score/Fall Risk Level 0 - 2 = Low Risk Oriented to surroundings, Maintained a safe environment, Educated pt \\T\\ family on fall prevention, incl call for assistance when getting out of bed. Abuse screen: Denies threats or abuse. Denies injuries from another. Nutritional screening: No deficits noted. Tuberculosis screening: No symptoms or risk factors identified. Assessment: 04/22 00:00 General: Appears in no apparent distress. comfortable, Behavior is calm, cooperative, jw7 appropriate for age. 00:00 Pain: Denies pain. Neuro: Level of Consciousness is awake, alert, obeys commands, jw7 Oriented to person, place, time, situation, Appropriate for age. Cardiovascular: Heart tones S1 S2 present Capillary refill < 3 seconds Clubbing of nail beds is absent JVD is absent Patient's skin is warm and dry. Respiratory: Airway is patent Trachea midline Respiratory effort is even, unlabored, Respiratory pattern is regular, symmetrical. GI: Abdomen is round non-distended, Bowel sounds present X 4 quads. Abd is soft and non tender X 4 quads. : No deficits noted. No signs and/or symptoms were reported regarding the genitourinary system. EENT: No deficits noted. No signs and/or symptoms were reported regarding the EENT system. Derm: Skin is intact, is healthy with good turgor, Skin is dry, Skin is normal, Skin temperature is warm. Musculoskeletal: Circulation, motion, and sensation intact. Range of motion: intact in all extremities. 01:06 Reassessment: Patient appears in no apparent distress at this time. No changes from [facility] previously documented assessment. Patient and/or family updated on plan of care and expected duration. Pain level reassessed. Patient is alert, oriented x 3, equal unlabored respirations, skin warm/dry/pink. Vital Signs: 04/21 22:24 BP 126 / 40; Pulse 63; Resp 18 S; Temp 97.9(O); Pulse Ox 95% on R/A; Weight 54.43 kg; 7 Height 4 ft. 10 in. ; Pain 0/10; 23:55 BP 134 / 51; Pulse 66; Resp 16; Pulse Ox 97% on R/A; kd4 04/22 01:06 BP 139 / 49; Pulse 60; Resp 14 S; Pulse Ox 96% on R/A; jw7 02:20 BP 163 / 53; Pulse 64; Resp 17; Pulse Ox 98% on R/A; kd4 04:36 BP 145 / 54; Pulse 64; Resp 18; Temp 98.3; Pulse Ox 98% on R/A; Pain 0/10; kd4 04/21 22:24 Body Mass Index 25.08 (54.43 kg, 147.32 cm) [facility] 04/21 22:24 Pain Scale: Adult [facility] 04:36 Pain Scale: Adult kd4 Vitals: 04/21 22:49 Cardiac Rhythm Assessment Regular Sinus rhythm. cm10 [place] Coma Score: 04/23 00:33 Eye Response: spontaneous(4). Motor Response: obeys commands(6). Verbal Response: sp4 oriented(5). Total: 15. ED Course: 04/21 22:10 Patient arrived in ED. mr 22:12 Gold Treadwell MD is Attending Physician. sp4 22:20 Missed attempt(s): 18 gauge in left forearm. Bleeding controlled, band aid applied, cm10 catheter tip intact. 22:27 Triage completed. jw7 22:27 Arm band placed on. jw7 22:29 Patient has correct armband on for positive identification. Bed in low position. Call jw7 light in reach. Side rails up X2. Client placed on continuous cardiac and pulse oximetry monitoring. NIBP monitoring applied. 22:30 Initial lab(s) drawn, by me, sent to lab. First set of blood cultures drawn by me, cm10 Urine collected: clean catch specimen, COVID swab sent to lab. Flu and/or RSV swab sent to lab. 22:40 Inserted saline lock: 22 gauge in left antecubital area, using aseptic technique. Blood cm10 collected. 22:48 Influenza Screen (a \\T\\ B) Sent. cm10 22:48 SARS RAPID Sent. cm10 22:48 Urinalysis W/Microscopic Sent. cm10 22:48 Basic Metabolic Panel Sent. cm10 22:48 CBC with Diff Sent. cm10 22:48 LFT's Sent. cm10 22:48 Magnesium Sent. cm10 22:48 NT PRO-BNP Sent. cm10 22:48 PT-INR Sent. cm10 22:48 Troponin HS Sent. cm10 22:53 XRAY Chest (1 view) In Process Unspecified. EDMN 04/22 01:36 Troponin High Sensitivity Sent. kd4 01:36 BMP Sent. kd4 02:35 Cara Mercado, JOHN is Primary Nurse. kd4 04:37 No provider procedures requiring assistance completed. kd4 04:38 Provided Education on: d/c instruction. kd4 04:38 IV discontinued. kd4 Administered Medications: 04/21 23:20 Drug: NS 0.9% IV 500 ml IV at bolus once Route: IV; Rate: bolus; Site: left antecubital;kd4 04/22 04:39 Follow up: IV Status: Completed infusion kd4 04:34 Drug: Kayexalate PO 30 grams PO once Route: PO; kd4 04:38 Follow up: Response: No adverse reaction kd4 Medication: 04:38 VIS not applicable for this client. kd4 Outcome: 03:48 Discharge ordered by . sp4 04:37 Discharged to home via wheelchair, with family, with significant other, kd4 04:37 Condition: stable 04:37 Discharge instructions given to patient, Instructed on discharge instructions, Demonstrated understanding of instructions, follow-up care, 04:39 Patient left the ED. kd4 Signatures: Dispatcher [employer] [facility] Radha Vega, Reg Reg Caitie Crzu, RN RN jw7 Gold Treadwell MD MD sp4 Agueda Nevarez RN RN cm10 Cara Mercado RN RN kd4 Corrections: (The following items were deleted from the chart) 04/21 22:27 22:24 BP 126 / 40; Pulse 63bpm; Resp 18bpm; Spontaneous; Pulse Ox 95% RA; Temp 97.9F jw7 Oral; Pain 0/10, Adult; jw7 22:28 22:27 PMHx: Cancer; breast; jw7 jw7 22:28 22:27 PMHx: Cancer; breast; jw7 jw7 22:28 22:27 PMHx: Cancer; breast; jw7 jw7 22:28 22:27 PMHx: Cancer, Breast; breast, stage 4; jw7 jw7
[2024-04-22] MEDS ORDERED: SOD POLYSTYREN SUL 15 GM/60 ML UCUP ONE (04:21)
[2024-04-22 04:56] VITALS: BP 145/54; TEMP 98.3; O2SAT 98
--- NOTE | 2024-04-24 13:09 | EKG ---
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
--- NOTE | 2024-04-24 19:14 | RAD REPORT ---
EXAM DESCRIPTION: RAD - Chest Single View - 04/21/2024 10:51 pm Chest Single View CLINICAL HISTORY: 78 years Female, CHEST PAIN TECHNIQUE: 1 view (Single frontal view of the chest) COMPARISON: None were made available at time of this interpretation. FINDINGS: Shallow inspiratory effort limiting evaluation of lung bases. LINES AND TUBES: None. CARDIOVASCULAR STRUCTURES: Normal heart size. Mild pulmonary venous congestion. LUNGS: Bilateral lower lobe parenchymal opacities. PLEURA: Small left and probable small right pleural effusion. No pneumothorax. BONES: No acute osseous abnormality of the thorax. IMPRESSION: 1. Bilateral lower lobe parenchymal opacities compatible with atelectasis versus pneum onia. 2. Small left and probable small right pleural effusion. 3. Mild pulmonary venous congestion. 4. Follow-up two-view chest x-ray versus CT chest may be more helpful. Electronically signed by: Benito Alvarado MD 04/21/2024 11:01 PM CDT RP N Due to temporary technical issues with the PACS/Fluency reporting system, reports are being signed by the in house radiologists without review as a courtesy to insure prompt reporting. The interpreting radiologist is fully responsible for the content of the report.
== END 2024-04-22 04:39 | disposition home or self-care (01) ==
LOC: ER 22:09
DX: E86.0 Dehydration (principal); M62.81 Muscle weakness (generalized); E11.22 Type 2 diabetes mellitus with diabetic chronic kidney disease; I12.9 Hypertensive chronic kidney disease with stage 1 through stage 4 chronic kidney disease, or unspecified chronic kidney disease; N18.9 Chronic kidney disease, unspecified; D64.9 Anemia, unspecified; Z11.52 Encounter for screening for COVID-19
CPT/HCPCS: 96361; 85025; 81001; 80048 ×2; 36415; 83735; 85610; 80076; 84484 ×2; 83880; 87804 ×2; 71045; 96360; 99284; 87811; J7040; 93005